=== PATIENT | female | born 1950 | race Caucasian/White ===

== ENCOUNTER 2017-05-28 11:38 | Inpatient (IN) | payer MEDICARE, BC ==
--- NOTE | 2017-05-28 14:33 | P.CRDCN ---
History of Present Illness Consult date: 05/28/17 Requesting physician: Neftaly Stovall Chief complaint: Jaw pain and left shoulder discomfort History of present illness: As a 66-year-old female with history of hypertension, diabetes, hyperlipidemia, coronary artery disease with prior stent placement to the right coronary artery in 2010, she follows with Dr. Oliveros in the office. According to the patient she had pneumonia in March and had been recovering from that quite well. She states that she presented to [facility] with symptoms of jaw discomfort as well as a left shoulder discomfort. She also states that she's been mildly short of breath, and persistent have swelling in both of her lower extremities. For all of the above reason she presented to [facility]. Initial EKG performed at [facility] showed a normal sinus rhythm with a left bundle-branch block pattern. Chest x- ray performed there revealed a right lower lobe infiltrate and small effusion, improved from prior exam. WBC 7.6, hemoglobin 11.7, platelet count 209 INR 1.07 , glucose 446. Sodium 138, potassium 3.4, BUN 17, creatinine 0.8. Magnesium level I.1. Initial troponin 0.03 which is negative. At the time of my examination, patient denies any current discomfort in her jaw or shoulder. Breathing is overall stable. Patient does state that she sleeps in a chair however, because if she lies flat she has a hockey cough and it's difficult to breathe. Blood pressure [facility] 164/75 with a heart rate in the 90s, she is afebrile, 97% on room air. Patient is just coming to the telemetry unit , no vital signs EKG or labs have been performed here yet. Medications and Allergies Allergies Allergy/AdvReac Type Severity Reaction Status Date / Time Penicillins Allergy Severe Rash/Hives Verified 05/28/17 14:15 Physical Exam Vitals: Intake and Output 05/27/17 05/28/17 05/28/17 22:59 06:59 14:59 Other: Weight 105.8 kg Patient Weight 05/29/17 06:59 Weight 105.8 kg PHYSICAL EXAMINATION: HEENT: Head is atraumatic, normocephalic. Pupils equal, round. Neck is supple. There is no elevated jugular venous pressure. HEART EXAMINATION: Heart S1-S2 with systolic ejection murmur is heard CHEST EXAMINATION: Lungs reveal fine rales to bilateral bases. ABDOMEN: Soft, obese, nontender. Bowel sounds are heard. No organomegaly noted. EXTREMITIES:[ 2+ peripheral pulses with 2+ evidence of peripheral edema , right leg has more swelling than the left. Evidence of bilateral lower extremity redness NEUROLOGIC patient is awake, alert and oriented -3. . Results Intake and Output 05/27/17 05/28/17 05/28/17 22:59 06:59 14:59 Other: Weight 105.8 kg Patient Weight 05/29/17 06:59 Weight 105.8 kg EKG Interpretations (text) EKG shows normal sinus rhythm with a left bundle-branch block pattern. Assessment and Plan Plan: Assessment and plan #1 jaw discomfort with associated left shoulder discomfort, somewhat atypical features for acute coronary syndrome. Initial troponin I [facility] was negative. EKG shows a normal sinus rhythm with a left bundle-branch block pattern. #2 symptoms of PND and orthopnea with associated peripheral edema, chest x-ray shows infiltrate which is improving from prior x-ray. We will obtain a BNP level and repeat chest x-ray here. #3 known history of coronary artery disease with prior RCA stenting in 2010 #4 diabetes 5 hypertension #6 hyperlipidemia #7 family history of premature coronary artery disease Plan We will obtain an echocardiogram with Doppler study. We will also request a BNP level be performed. We will give the patient one time dose of IV Lasix. Obtain 2 subsequent troponins. Resume the patient's home medications. Further recommendations will be based on these findings and patient's clinical course. DNP note has been reviewed, I agree with a documented findings and plan of care. Patient was seen and examined.
[2017-05-28] MEDS ORDERED: FUROSEMIDE 10 MG/ML 4 ML VIAL IV STA (14:35)
--- NOTE | 2017-05-28 15:08 | XR ---
EXAMINATION TYPE: XR chest 2V DATE OF EXAM: 05/28/2017 COMPARISON: 02/01/2016 HISTORY: Shortness of breath TECHNIQUE: Frontal and lateral views of the chest are obtained. FINDINGS: Interstitial prominence is most pronounced on the lateral view. This is seen diffusely. Ca rdiac silhouette is enlarged. Trace right pleural effusion is noted. No focal consolidation or pneumo thorax is seen. There is tortuosity of the descending thoracic aorta. IMPRESSION: Diffuse interstitial prominence could relate to mild interstitial pulmonary edema in the setting of congestive heart failure or atypical pneumonitis. Trace right pleural effusion is also pr esent.
[2017-05-28 15:20] LABS: HGB 11.6 gm/dL (11.4-16.0); Hypochromasia Slight; MCHC 32.2 g/dL (31.0-37.0); MCV 86.9 fL (80.0-100.0); Mean Platelet Volume 7.7; Platelet Count 232 k/uL (150-450); RBC 4.14 m/uL (3.80-5.40); RDW 14.9 % (11.5-15.5); WBC 8.3 k/uL (3.8-10.6)
[2017-05-28 16:37] LABS: Glucose,Whole Blood 108 mg/dL (75-99)
[2017-05-28] MEDS ORDERED: ALPRAZolam 0.25 MG TAB PO PRN (17:31)
--- NOTE | 2017-05-28 17:42 | P.CRDCN ---
History of Present Illness Reason for Consult (text): Patient interviewed and examined. She has been experiencing recurrent heaviness and tightness similar to her angina that is responsive to nitroglycerin but she is having increasing episodes and hence she went to the hospital. Patient Dr. Oliveros and the plan is to perform coronary angiography tomorrow Twelve-lead ECG BMP today See full dictation by Dr. rosa Past Medical History Past Medical History: Asthma, Coronary Artery Disease (CAD), Cancer, Chest Pain / Angina, Diabetes Mellitus, GERD/Reflux, Hyperlipidemia, Hypertension, Myocardial Infarction (NH), Pneumonia, Sleep Apnea/CPAP/BIPAP Additional Past Medical History / Comment(s): Pt states she had pneumonia and was sent home with home O2 and she felt she had recovered, she then states she started having bilateral lower leg edema/redness with L leg worse, she states she sleeps in a recliner because she coughs too much if she doesn't. She states she started having jaw, chest and L sided back (scapular) pain on and off the past week. Other hx: IDDM type II, NH in 1998 and 2010, [place] with CPAP but was not able to use since pneumonia so she states equipment company took machine away, R breast cancer with lumpectomy/lymph node removals and had radiation, anemia, unsteady gait. Last Myocardial Infarction Date:: 2010 History of Any Multi-Drug Resistant Organisms: None Reported Past Surgical History: Breast Surgery, Heart Catheterization, Heart Catheterization With Stent, Hysterectomy, Tonsillectomy Additional Past Surgical History / Comment(s): 07/2010 PCI with stent to RCA, R breast lumpectomy/lymph node removals, colonoscopy with benign polypectomies. Past Anesthesia/Blood Transfusion Reactions: No Reported Reaction Additional Past Anesthesia/Blood Transfusion Reaction / Comment(s): Pt states she received blood with hysterectomy without reaction. Date of Last Stent Placement:: 2010 Smoking Status: Former smoker - Past Family History Mother Family Medical History: Cancer, Hyperlipidemia, Hypertension Additional Family Medical History / Comment(s): Mother had breast cancer 50 yrs ago. She is living. Father Family Medical History: Diabetes Mellitus Additional Family Medical History / Comment(s): Father is . Medications and Allergies Home Medications Medication Instructions Recorded Confirmed Type ALPRAZolam [Xanax] 0.25 mg PO Q6HR PRN 05/28/17 05/28/17 History Albuterol Sulfate [Proair Hfa] 2 puff INHALATION RT-Q4H PRN 05/28/17 05/28/17 History Alendronate Sodium [Fosamax] 70 mg PO DANIELS 05/28/17 05/28/17 History Anastrozole [Arimidex] 1 mg PO DAILY 05/28/17 05/28/17 History Aspirin [Adult Low Dose Aspirin EC] 81 mg PO DAILY 05/28/17 05/28/17 History Atorvastatin [Lipitor] 20 mg PO HS 05/28/17 05/28/17 History Atorvastatin [Lipitor] 40 mg PO HS 05/28/17 05/28/17 History Budesonide [Pulmicort] 0.5 mg INHALATION RT-BID 05/28/17 05/28/17 History Clopidogrel [Plavix] 75 mg PO DAILY 05/28/17 05/28/17 History Furosemide [Lasix] 40 mg PO DAILY 05/28/17 05/28/17 History Insulin Aspart [Novolog Flexpen] 6 unit SQ W/LUNCH 05/28/17 05/28/17 History Insulin Aspart [Novolog Flexpen] 8 unit SQ BID 05/28/17 05/28/17 History Insulin Glargine,Hum.rec.anlog 60 unit SQ DAILY 05/28/17 05/28/17 History [Lantus Solostar] Ipratropium-Albuterol Nebulize 3 ml INHALATION RT-TID 05/28/17 05/28/17 History [Duoneb 0.5 mg-3 mg/3 ml Soln] Isosorbide Mononitrate ER [Imdur] 60 mg PO DAILY 05/28/17 05/28/17 History Lisinopril [Zestril] 20 mg PO DAILY 05/28/17 05/28/17 History Metoprolol Tartrate [Lopressor] 50 mg PO DAILY 05/28/17 05/28/17 History Montelukast [Singulair] 10 mg PO HS 05/28/17 05/28/17 History RX: Omeprazole 20 mg PO BID 05/28/17 05/28/17 History RX: Ramipril 10 mg PO BID 05/28/17 05/28/17 History RX: metFORMIN HCL 1,000 mg PO BID 05/28/17 05/28/17 History amLODIPine BESYLATE [Norvasc] 5 mg PO DAILY 05/28/17 05/28/17 History cloNIDine HCL [Catapres] 0.1 mg PO DAILY 05/28/17 05/28/17 History Allergies Allergy/AdvReac Type Severity Reaction Status Date / Time Penicillins Allergy Severe Rash/Hives Verified 05/28/17 14:15 Physical Exam Vitals: Vital Signs Temp Pulse Resp BP Pulse Ox 05/28/17 14:00 98.5 F 92 18 135/68 97 Intake and Output 05/28/17 05/28/17 05/28/17 06:59 14:59 22:59 Other: Weight 105.8 kg Patient Weight 05/29/17 06:59 Weight 105.8 kg Results 05/28/17 15:02 CBC 05/28/17 Range/Units 15:02 WBC 8.3 (3.8-10.6) k/uL RBC 4.14 (3.80-5.40) m/uL Hgb 11.6 (11.4-16.0) gm/dL Hct 36.0 (34.0-46.0) % Plt Count 232 (150-450) k/uL Current Medications Generic Name Dose Route Start Last Admin Trade Name Freq PRN Reason Stop Dose Admin Albuterol/Ipratropium 3 ml 05/28/17 20:00 Duoneb 0.5 Mg-3 Mg/3 Ml Soln INHALATION RT-TID [facility] Alprazolam 0.25 mg 05/28/17 17:31 Xanax PO Q6HR PRN Anxiety Amlodipine Besylate 5 mg 05/29/17 09:00 Norvasc PO DAILY [facility] Anastrozole 1 mg 05/29/17 09:00 Arimidex PO DAILY [facility] Aspirin 81 mg 05/29/17 09:00 Aspirin PO DAILY [facility] Atorvastatin Calcium 40 mg 05/28/17 21:00 Lipitor PO HS [facility] Budesonide 0.5 mg 05/28/17 20:00 Pulmicort INHALATION RT-BID [facility] Clonidine 0.1 mg 05/29/17 09:00 Catapres PO DAILY [facility] Clopidogrel Bisulfate 75 mg 05/29/17 09:00 Plavix PO DAILY [facility] Furosemide 40 mg 05/29/17 09:00 Lasix PO DAILY [facility] Heparin Sodium (Porcine) 5,000 unit 05/28/17 21:00 Heparin SQ Q12HR [facility] Insulin Aspart 6 unit 05/29/17 12:30 Novolog SQ W/LUNCH [facility] Insulin Aspart 8 unit 05/29/17 07:30 Novolog SQ BID-W/MEALS [facility] Insulin Detemir 60 unit 05/29/17 09:00 Levemir SQ DAILY [facility] Isosorbide Mononitrate 60 mg 05/29/17 09:00 Imdur PO DAILY [facility] Lisinopril 20 mg 05/29/17 09:00 Zestril PO DAILY [facility] Metoprolol Tartrate 50 mg 05/29/17 09:00 Lopressor PO DAILY [facility] Montelukast Sodium 10 mg 05/28/17 21:00 Singulair PO HS [facility] Fosamax 70 Mg 70 mg 06/03/17 06:30 PO Daniels@0630 [facility] Pantoprazole Sodium 40 mg 05/29/17 07:30 Protonix PO [id number] [facility] Intake and Output 05/28/17 05/28/17 05/28/17 06:59 14:59 22:59 Other: Weight 105.8 kg Patient Weight 05/29/17 06:59 Weight 105.8 kg 05/28/17 15:02
[2017-05-28] MEDS: BUDESONIDE 0.5 MG/2 ML NEBU INHALATION SCH ×2 (20:19→20:22)
[2017-05-28] MEDS: IPRATROPIUM-ALBUTEROL 3 ML NEB INHALATION SCH ×2 (20:19→20:22)
[2017-05-28 20:59] LABS: Glucose,Whole Blood 190 mg/dL (75-99)
[2017-05-28] MEDS ORDERED: HEPARIN SODIUM,PORCINE 5,000 UNIT/ML 1 ML VIAL SQ SCH (21:00)
[2017-05-28] MEDS ORDERED: HEPARIN SODIUM,PORCINE 5,000 UNIT/ML 1 ML VIAL IV PRN (21:16)
[2017-05-28] MEDS ORDERED: HEPARIN SOD,PORK IN 0.45% NACL 25,000 UNIT in 0.45% NACL 1 500ML.BAG IV SCH (21:30)
--- NOTE | 2017-05-28 21:42 | US ---
EXAMINATION TYPE: US venous doppler duplex LE DATE OF EXAM: 05/28/2017 9:13 PM COMPARISON: NONE CLINICAL HISTORY: Left leg swelling. Bilateral leg edema. SIDE PERFORMED: Bilateral TECHNIQUE: The lower extremity deep venous system is examined utilizing real time linear array sonog nahun with graded compression, doppler sonography and color-flow sonography. VESSELS IMAGED: External Iliac Vein (EIV) Common Femoral Vein Deep Femoral Vein Greater Saphenous Vein * Femoral Vein Popliteal Vein Small Saphenous Vein * Proximal Calf Veins (* superficial vessels) Right Leg: Negative for DVT Left Leg: Negative for DVT No evidence of DVT bilateral legs. IMPRESSION: 1. Bilateral lower extremities negative for deep venous thrombosis by ultrasound.
[2017-05-28 21:55] LABS: Basophils # (A) 0.1 k/uL (0-0.2); Basophils % (A) 1 %; Eosinophils # (A) 0.2 k/uL (0-0.7); Eosinophils % (A) 3 %; HCT 38.6 % (34.0-46.0); HGB 12.2 gm/dL (11.4-16.0); Lymphocytes # (A) 1.4 k/uL (1.0-4.8); Lymphocytes % (A) 18 %; MCH 27.9 pg (25.0-35.0); MCHC 31.6 g/dL (31.0-37.0); MCV 88.2 fL (80.0-100.0); Mean Platelet Volume 7.5; Monocytes # (A) 0.3 k/uL (0-1.0); Monocytes % (A) 4 %; Neutrophils # (A) 5.6 k/uL (1.3-7.7); Neutrophils % (A) 72 %; Platelet Count 237 k/uL (150-450); RBC 4.38 m/uL (3.80-5.40); RDW 14.8 % (11.5-15.5); WBC 7.8 k/uL (3.8-10.6)
[2017-05-28 22:03] LABS: Prothrombin Time 9.9 sec (9.0-12.0)
[2017-05-28 22:10] LABS: Partial Thromboplastin Time 22.1 sec (22.0-30.0)
[2017-05-28] MEDS: ATORVASTATIN 40 MG TAB PO SCH (22:45)
[2017-05-28] MEDS: MONTELUKAST 10 MG TAB PO SCH (22:45)
--- NOTE | 2017-05-28 22:54 | P.HPIM ---
History of Present Illness H&P Date: 05/28/17 Patient is a 66 alert female with a known history of coronary disease and stent placement in 2010, hypertension, diabetes type 2, hyperlipidemia initially presented to [facility] with complaints of chest pressure and left jaw discomfort. Patient also having shortness of breath associated. Patient was also found have leg swelling left more than right. Pt. has been having these worsening symptoms for the past 3 weeks. No fever no chills. Patient recently had pneumonia and required to have thoracentesis. EKG showed normal sinus rhythm at Hospital Chest x-ray showed right lower lobe infiltrate and small effusion improved from previous study Blood sugar is 446 Initial troponin level is 0.03 and 0.038 Patient does have orthopnea at home. Otherwise saturating well on room air,. Cardiology was consulted. Review of Systems Constitutional: Patient denies any fever or chills . No generalized weakness or weight loss. Abdomen: Patient denied nausea vomiting and diarrhea and abdominal pain. Cardiovascular: He does have chest pressure and jaw discomfort. No palpitations. Patient does have leg swelling Respiratory: patient denied any cough is from production. No shortness of breath Neurologic: Patient denied any numbness or tingling headache. Musculoskeletal: Patient denies any complaints of joint swelling or deformity. Skin: Negative Psychiatric: Negative Endocrine: No heat or cold intolerance. No recent weight gain. Genitourinary: No dysuria or hematuria. All other 14 point ROS negative except the above Past Medical History Past Medical History: Asthma, Coronary Artery Disease (CAD), Cancer, Chest Pain / Angina, Diabetes Mellitus, GERD/Reflux, Hyperlipidemia, Hypertension, Myocardial Infarction (MD), Pneumonia, Sleep Apnea/CPAP/BIPAP Additional Past Medical History / Comment(s): Pt states she had pneumonia and was sent home with home O2 and she felt she had recovered, she then states she started having bilateral lower leg edema/redness with L leg worse, she states she sleeps in a recliner because she coughs too much if she doesn't. She states she started having jaw, chest and L sided back (scapular) pain on and off the past week. Other hx: IDDM type II, [place] in 1998 and 2010, [place] with CPAP but was not able to use since pneumonia so she states equipment company took machine away, R breast cancer with lumpectomy/lymph node removals and had radiation, anemia, unsteady gait. Last Myocardial Infarction Date:: 2010 History of Any Multi-Drug Resistant Organisms: None Reported Past Surgical History: Breast Surgery, Heart Catheterization, Heart Catheterization With Stent, Hysterectomy, Tonsillectomy Additional Past Surgical History / Comment(s): 07/2010 PCI with stent to RCA, R breast lumpectomy/lymph node removals, colonoscopy with benign polypectomies. Past Anesthesia/Blood Transfusion Reactions: No Reported Reaction Additional Past Anesthesia/Blood Transfusion Reaction / Comment(s): Pt states she received blood with hysterectomy without reaction. Date of Last Stent Placement:: 2010 Smoking Status: Former smoker - Past Family History Mother Family Medical History: Cancer, Hyperlipidemia, Hypertension Additional Family Medical History / Comment(s): Mother had breast cancer 50 yrs ago. She is living. Father Family Medical History: Diabetes Mellitus Additional Family Medical History / Comment(s): Father is . Medications and Allergies Home Medications Medication Instructions Recorded Confirmed Type ALPRAZolam [Xanax] 0.25 mg PO Q6HR PRN 05/28/17 05/28/17 History Albuterol Sulfate [Proair Hfa] 2 puff INHALATION RT-Q4H PRN 05/28/17 05/28/17 History Alendronate Sodium [Fosamax] 70 mg PO CARPENTER 05/28/17 05/28/17 History Anastrozole [Arimidex] 1 mg PO DAILY 05/28/17 05/28/17 History Aspirin [Adult Low Dose Aspirin EC] 81 mg PO DAILY 05/28/17 05/28/17 History Atorvastatin [Lipitor] 20 mg PO HS 05/28/17 05/28/17 History Atorvastatin [Lipitor] 40 mg PO HS 05/28/17 05/28/17 History Budesonide [Pulmicort] 0.5 mg INHALATION RT-BID 05/28/17 05/28/17 History Clopidogrel [Plavix] 75 mg PO DAILY 05/28/17 05/28/17 History Furosemide [Lasix] 40 mg PO DAILY 05/28/17 05/28/17 History Insulin Aspart [Novolog Flexpen] 6 unit SQ W/LUNCH 05/28/17 05/28/17 History Insulin Aspart [Novolog Flexpen] 8 unit SQ BID 05/28/17 05/28/17 History Insulin Glargine,Hum.rec.anlog 60 unit SQ DAILY 05/28/17 05/28/17 History [Lantus Solostar] Ipratropium-Albuterol Nebulize 3 ml INHALATION RT-TID 05/28/17 05/28/17 History [Duoneb 0.5 mg-3 mg/3 ml Soln] Isosorbide Mononitrate ER [Imdur] 60 mg PO DAILY 05/28/17 05/28/17 History Lisinopril [Zestril] 20 mg PO DAILY 05/28/17 05/28/17 History Metoprolol Tartrate [Lopressor] 50 mg PO DAILY 05/28/17 05/28/17 History Montelukast [Singulair] 10 mg PO HS 05/28/17 05/28/17 History Omeprazole 20 mg PO BID 05/28/17 05/28/17 History Ramipril 10 mg PO BID 05/28/17 05/28/17 History amLODIPine BESYLATE [Norvasc] 5 mg PO DAILY 05/28/17 05/28/17 History cloNIDine HCL [Catapres] 0.1 mg PO DAILY 05/28/17 05/28/17 History metFORMIN HCL 1,000 mg PO BID 05/28/17 05/28/17 History Allergies Allergy/AdvReac Type Severity Reaction Status Date / Time Penicillins Allergy Severe Rash/Hives Verified 05/28/17 14:15 Physical Exam Vitals: Vital Signs Temp Pulse Resp BP Pulse Ox 05/28/17 14:00 98.5 F 92 18 135/68 97 Intake and Output 05/28/17 05/28/17 05/28/17 06:59 14:59 22:59 Other: Weight 105.8 kg Patient Weight 05/29/17 06:59 Weight 105.8 kg PHYSICAL EXAMINATION: Patient is lying in the bed comfortably, no acute distress, awake alert and oriented.. HEENT: Normocephalic. Neck is supple. Pupils reactive. Nostrils clear. Oral cavity is moist. Ears reveal no drainage. Neck reveals no JVD, carotid bruits, or thyromegaly. CHEST EXAMINATION: Trachea is central. Symmetrical expansion. Right basilar crackles and minimal expiratory wheeze. Positive rhonchi CARDIAC: Normal S1, S2 with no gallops. No murmurs ABDOMEN: Soft. Bowel sounds normal. No organomegaly. No abdominal bruits. Extremities: 3+ left lower extremity and 2+ right lower extremity edema. No clubbing or cyanosis Neurologically awake, alert, oriented x3 with well-coordinated movements. No focal deficits noted Skin: No rash or skin lesions. Psychiatric: Coperative. Nonsuicidal Musculoskeletal: No joint swelling or deformity. Normal range of motion. Results CBC & Chem 7: 05/28/17 21:50 Labs: Abnormal Lab Results - Last 24 Hours (Table) 05/28/17 Range/Units 16:34 POC Glucose (mg/dL) 108 H (75-99) mg/dL Thrombosis Risk Factor Assmnt - DVT/VTE Prophylaxis DVT/VTE Prophylaxis: Pharmacologic Prophylaxis ordered - Choose All That Apply Any of the Below Risk Factors Present?: Yes Each Factor Represents 1 point: Obesity (BMI >25), Swollen legs (current) Other Risk Factors: Yes Each Risk Factor Represents 2 Points: Age 61-74 years Other congenital or acquired thrombophilia - If yes, enter type in comment: No Thrombosis Risk Factor Assessment Total Risk Factor Score: 4 Thrombosis Risk Factor Assessment Level: Moderate Risk Assessment and Plan Assessment: Atypical chest pain/pressure radiating to the jaw and left arm. Possible unstable angina. Interstitial edema. Recent pneumonia and pleural effusion requiring thoracentesis History of coronary artery disease with stent placement to RCA into the 11 Diabetes type 2 insulin-dependent Hypertension Hyperlipidemia Morbid obesity with BMI 41.3 Obstructive sleep apnea on BiPAP GERD Plan: Patient will be continued on telemetry monitoring. Serial EKG and troponins. We'll start on heparin drip. Otherwise patient was given Lasix IV which will be be continued. Continue with home medications. Lower extremity duplex is negative for DVT. Insulin dosing and CBG monitoring Cardiology is following this patient and is planning for cardiac catheterization tomorrow. Further recommendations based on the clinical course. Time with Patient: Greater than 30
[2017-05-29 04:58] LABS: Basophils # (A) 0.1 k/uL (0-0.2); Basophils % (A) 1 %; Eosinophils # (A) 0.2 k/uL (0-0.7); Eosinophils % (A) 4 %; HCT 37.7 % (34.0-46.0); HGB 12.2 gm/dL (11.4-16.0); Hypochromasia Slight; Lymphocytes # (A) 1.3 k/uL (1.0-4.8); Lymphocytes % (A) 22 %; MCH 28.3 pg (25.0-35.0); MCHC 32.5 g/dL (31.0-37.0); MCV 87.1 fL (80.0-100.0); Mean Platelet Volume 7.3; Monocytes # (A) 0.3 k/uL (0-1.0); Monocytes % (A) 4 %; Neutrophils % (A) 66 %; Platelet Count 199 k/uL (150-450); RBC 4.32 m/uL (3.80-5.40); RDW 14.6 % (11.5-15.5); WBC 6.1 k/uL (3.8-10.6)
[2017-05-29 05:24] LABS: Anion Gap 11 mmol/L; Blood Urea Nitrogen 18 mg/dL (7-17); Carbon Dioxide 28 mmol/L (22-30); Chloride 103 mmol/L (98-107); Glucose 191 mg/dL (74-99); Potassium 3.3 mmol/L (3.5-5.1); Sodium 142 mmol/L (137-145)
[2017-05-29 06:07] LABS: Glucose,Whole Blood 214 mg/dL (75-99)
[2017-05-29] MEDS: INSULIN ASPART 100 UNIT/ML 1 ML 10 ML VIAL SQ SCH ×3 (06:39→17:51)
[2017-05-29] MEDS: PANTOPRAZOLE 40 MG TABLET PO SCH (06:39)
[2017-05-29] MEDS ORDERED: ATORVASTATIN 80 MG TAB PO STA (08:18)
[2017-05-29] MEDS ORDERED: SODIUM CHLORIDE 0.9% 1,000 ML in EMPTY BAG 1 BAG IV ONE (08:18)
[2017-05-29] MEDS ORDERED: ASPIRIN 325 MG TAB PO STA (08:18)
[2017-05-29] MEDS ORDERED: ALPRAZolam 0.5 MG TAB PO PRN (08:18)
[2017-05-29] MEDS ORDERED: ALPRAZolam 0.25 MG TAB PO PRN (08:18)
[2017-05-29] MEDS: cloNIDine HCL 0.1 MG TAB PO SCH (08:37)
[2017-05-29] MEDS: ISOSORBIDE MONONITRATE ER 60 MG TAB.ER.24H PO SCH (08:37)
[2017-05-29] MEDS: LISINOPRIL 20 MG TAB PO SCH (08:37)
[2017-05-29] MEDS: amLODIPine 5 MG TAB PO SCH (08:37)
[2017-05-29] MEDS: ANASTROZOLE 1 MG TAB PO SCH (08:39)
[2017-05-29] MEDS ORDERED: FUROSEMIDE 10 MG/ML 4 ML VIAL IV SCH (09:00)
[2017-05-29] MEDS ORDERED: CLOPIDOGREL 75 MG TAB PO SCH (09:00)
[2017-05-29] MEDS ORDERED: METOPROLOL TARTRATE 50 MG TAB PO SCH (09:00)
[2017-05-29] MEDS ORDERED: FUROSEMIDE 40 MG TAB PO SCH (09:00)
[2017-05-29] MEDS: BUDESONIDE 0.5 MG/2 ML NEBU INHALATION SCH ×2 (09:23→19:39)
[2017-05-29] MEDS: IPRATROPIUM-ALBUTEROL 3 ML NEB INHALATION SCH ×3 (09:23→19:39)
[2017-05-29] MEDS ORDERED: VERAPAMIL 2.5 MG/ML 2 ML AMP ONE (11:47)
[2017-05-29] MEDS ORDERED: fentaNYL (PF) 50 MCG/ML 2 ML AMP ONE (11:48)
[2017-05-29] MEDS ORDERED: HEPARIN SODIUM 1,000 UN/ML (10ML VL) ONE (11:48)
[2017-05-29] MEDS ORDERED: LIDOCAINE 2% INJ 20 MG/ML (20 ML MDV) ONE (11:48)
[2017-05-29] MEDS ORDERED: fentaNYL (PF) 50 MCG/ML 2 ML AMP IVP ONE (12:17)
[2017-05-29] MEDS ORDERED: LIDOCAINE 2% INJ 20 MG/ML SQ ONE (12:22)
[2017-05-29] MEDS: VERAPAMIL SYRINGE (5 MG/10 ML) INTRAARTER ONE ×2 (12:23→12:42)
[2017-05-29] MEDS ORDERED: IOHEXOL 350 MG/ML 125ML BOTTLE INJ ONE (12:42)
[2017-05-29] MEDS ORDERED: RX INFO: IV CONTRAST WAS GIVEN 1 EACH MISC MISCELLANE PRN (13:02)
[2017-05-29] MEDS ORDERED: HEPARIN SODIUM,PORCINE 5,000 UNIT/ML 1 ML VIAL IV PRN (13:05)
[2017-05-29] MEDS ORDERED: SODIUM CHLORIDE 0.9% 1,000 ML IV SCH (13:15)
[2017-05-29] MEDS ORDERED: MD COMMUNICATION TO PHARMACY 1 EACH MISC PO ONE (13:32)
--- NOTE | 2017-05-29 13:36 | CC ---
CARDIAC CATHETERIZATION REPORT Ms. Kaufman is a 66-year-old female with a known history of heart disease, history of hypertension, hyperlipidemia, diabetes mellitus, who presented with jaw discomfort and chest discomfort and minimal elevation of the troponin consistent with non ST-segment elevation myocardial infarction. In view of that, recommendation made regarding cardiac catheterization. The procedure as well as risks and complications were discussed with the patient who is in full understanding and agreement. PROCEDURE: Patient was brought to labor crew supervisor in a fasting semi-sedated state after receiving fentanyl and Benadryl and achieving moderate conscious sedated state. Using Xylocaine anesthesia and Seldinger technique, a 6-Libyan sheath was introduced in the right radial artery. Selective right and left coronary angiography performed using 5-Libyan 3 and half bend right and left Nat catheter. Multiple views of the coronary artery including hemiaxial views were obtained. Following that a 5-Libyan tight pigtail catheter was introduced into the left ventricle and a 30 degree RICHARDS view of the left ventricle was obtained. Following that, the catheter and sheaths were removed. Hemostasis was obtained with deployment of a TR band. There was no immediate complication. Patient was returned to room in stable condition. FINDINGS: FLUOROSCOPY: There was severe calcification involving all the coronary arteries. 1. Left main: This is a short size vessel bifurcating into left circumflex, left anterior descending artery. Left main coronary artery has no evidence of high- grade stenosis. 2. Left anterior descending artery: This is a large-sized vessel giving rise to 2 diagonal branches in the proximal segment of the LAD. At the takeoff of the first diagonal branch there is an eccentric 90% plaque. The LAD after the takeoff of the second diagonal branch has an area of stenosis of about 99%. The vessel beyond that has no evidence of high-grade stenosis. 3. Left circumflex: This is a small size vessel diffusely diseased with no significant sized obtuse marginal branch. The AV groove in the left circumflex has diffuse intimal disease up to 70-80%. 4. Right coronary artery: This is a large dominant vessel bifurcating distally to PDA and posterolateral segment and branches. The PDA reaches toward the inferior apical wall. The right coronary artery is quite tortuous in the mid segment and calcified. It has diffuse disease. In the proximal segment there is an area of stenosis up to 70-80%. There is another plaque in the mid segment and about 90% plaque prior to the bifurcation. The PDA and the PLV have no evidence of high- grade stenosis. 5. Left ventriculogram: Left ventriculogram was performed in 30 degree RICHARDS view and was suboptimal, but revealed an overall preserved ejection fraction and estimated at about 50%. There was no significant mitral regurgitation. 6. HEMODYNAMICS: There was no gradient across the aortic valve. The left ventricle end-diastolic pressure was 16-20 mmHg. CONCLUSION: 1. Critical stenosis involving the proximal and mid LAD. 2. Critical stenosis involving the right coronary artery in multiple segments. 3. Diffuse disease in the left circumflex. 4. Preserved left ventricular size and systolic function. RECOMMENDATION: In view of the anatomy and the progression of disease compared to 2011, I recommend proceed with evaluation for coronary artery bypass grafting. The patient will be evaluated by Dr. Mari in regard to her lung status and if she is stable from the cardiac standpoint, I believe that a coronary bypass grafting will be her best option. Percutaneous revascularization is a complex procedure in her case. Those findings and recommendation were discussed with the patient and her family who are in full understanding and agreement. Duration of procedure: 22 minutes. MMODL / IJN: [id number] /
--- NOTE | 2017-05-29 14:05 | P.GSCN ---
<Conchis Bernardo - Last Filed: 05/29/17 13:43> History of Present Illness Consult date: 05/29/17 Reason for Consult: Multivessel coronary artery disease, recommendations for surgical revascularization. Requesting physician: Melodie Oliveros History of present illness: This 66-year-old female patient who has a previous medical history of hypertension, hyperlipidemia, and some dependent diabetes mellitus, myocardial infarction with stent placement to the RCA in 2010, obstructive sleep apnea, recent pneumonia, previous tobacco dependence, right breast cancer with lumpectomy and radiation, and family history of premature coronary artery disease presented to the emergency room with complaints of chest pain. She describes the pain as intermittent jaw and back pain associated with shortness of breath, nausea, and lower extremity edema which has been present for the last couple of weeks but which has been getting increasingly more often in frequency. She states the pain was partially with relieved with rest. She initially presented to [facility], EKG completed there demonstrated normal sinus rhythm with a left bundle-branch, initial troponin was negative. Patient was transferred to [facility] with plans for heart catheterization which was completed this morning and which demonstrated RCA stenosis of 90%, circumflex stenosis of 90%, proximal LAD stenosis 80% with mid LAD stenosis of 99%. Due to the nature of her disease, Dr. Castro from cardiothoracic surgery was consulted regarding surgical revascularization recommendations. Review of Systems 14 point review systems was completed and was negative except as noted in the HPI. Past Medical History Past Medical History: Asthma, Coronary Artery Disease (CAD), Cancer, Chest Pain / Angina, COPD, Diabetes Mellitus, GERD/Reflux, Hyperlipidemia, Hypertension, Myocardial Infarction (NC), Pneumonia, Sleep Apnea/CPAP/BIPAP Additional Past Medical History / Comment(s): Pt states she had pneumonia and was sent home with home O2 and she felt she had recovered, she then states she started having bilateral lower leg edema/redness with L leg worse, she states she sleeps in a recliner because she coughs too much if she doesn't. She states she started having jaw, chest and L sided back (scapular) pain on and off the past week. Other hx: IDDM type II, NC in 1998 and 2010, MADELEINE with CPAP but was not able to use since pneumonia so she states equipment company took machine away, R breast cancer with lumpectomy/lymph node removals and had radiation, anemia, unsteady gait. Last Myocardial Infarction Date:: 2010 History of Any Multi-Drug Resistant Organisms: None Reported Past Surgical History: Breast Surgery, Heart Catheterization, Heart Catheterization With Stent, Hysterectomy, Tonsillectomy Additional Past Surgical History / Comment(s): 07/2010 PCI with stent to RCA, R breast lumpectomy/lymph node removals, colonoscopy with benign polypectomies. Past Anesthesia/Blood Transfusion Reactions: No Reported Reaction Additional Past Anesthesia/Blood Transfusion Reaction / Comm: Pt states she received blood with hysterectomy without reaction. Date of Last Stent Placement:: 2010 Smoking Status: Former smoker Past Alcohol Use History: None Reported Past Drug Use History: None Reported - Past Family History Mother Family Medical History: Cancer, Hyperlipidemia, Hypertension Additional Family Medical History / Comment(s): Mother had breast cancer 50 yrs ago. She is living. Father Family Medical History: Diabetes Mellitus Additional Family Medical History / Comment(s): Father is . Medications and Allergies Home Medications Medication Instructions Recorded Confirmed Type ALPRAZolam [Xanax] 0.25 mg PO Q6HR PRN 05/28/17 05/28/17 History Albuterol Sulfate [Proair Hfa] 2 puff INHALATION RT-Q4H PRN 05/28/17 05/28/17 History Alendronate Sodium [Fosamax] 70 mg PO CARPENTER 05/28/17 05/28/17 History Anastrozole [Arimidex] 1 mg PO DAILY 05/28/17 05/28/17 History Aspirin [Adult Low Dose Aspirin EC] 81 mg PO DAILY 05/28/17 05/28/17 History Atorvastatin [Lipitor] 20 mg PO HS 05/28/17 05/28/17 History Atorvastatin [Lipitor] 40 mg PO HS 05/28/17 05/28/17 History Budesonide [Pulmicort] 0.5 mg INHALATION RT-BID 05/28/17 05/28/17 History Clopidogrel [Plavix] 75 mg PO DAILY 05/28/17 05/28/17 History Furosemide [Lasix] 40 mg PO DAILY 05/28/17 05/28/17 History Insulin Aspart [Novolog Flexpen] 6 unit SQ W/LUNCH 05/28/17 05/28/17 History Insulin Aspart [Novolog Flexpen] 8 unit SQ BID 05/28/17 05/28/17 History Insulin Glargine,Hum.rec.anlog 60 unit SQ DAILY 05/28/17 05/28/17 History [Lantus Solostar] Ipratropium-Albuterol Nebulize 3 ml INHALATION RT-TID 05/28/17 05/28/17 History [Duoneb 0.5 mg-3 mg/3 ml Soln] Isosorbide Mononitrate ER [Imdur] 60 mg PO DAILY 05/28/17 05/28/17 History Lisinopril [Zestril] 20 mg PO DAILY 05/28/17 05/28/17 History Metoprolol Tartrate [Lopressor] 50 mg PO DAILY 05/28/17 05/28/17 History Montelukast [Singulair] 10 mg PO HS 05/28/17 05/28/17 History Omeprazole 20 mg PO BID 05/28/17 05/28/17 History Ramipril 10 mg PO BID 05/28/17 05/28/17 History amLODIPine BESYLATE [Norvasc] 5 mg PO DAILY 05/28/17 05/28/17 History cloNIDine HCL [Catapres] 0.1 mg PO DAILY 05/28/17 05/28/17 History metFORMIN HCL 1,000 mg PO BID 05/28/17 05/28/17 History Allergies Allergy/AdvReac Type Severity Reaction Status Date / Time Penicillins Allergy Severe Rash/Hives Verified 05/28/17 14:15 Surgical - Exam Vital Signs Temp Pulse Resp BP Pulse Ox 98.5 F 92 18 135/68 97 05/28/17 14:00 05/28/17 14:00 05/28/17 14:00 05/28/17 14:00 05/28/17 14:00 - General well developed, well nourished, no distress, no pain, chronically ill, obese - Eyes PERRL, normal ocular movement - ENT no hearing loss - Neck no masses, no bruits, trachea midline - Respiratory Lungs sounds diminished bilaterally. Respirations even, nonlabored. Currently on room air with oxygen saturation 94%. - Cardiovascular S1, S2 present. Regular rate and rhythm, sinus rhythm on telemetry. Palpable peripheral pulses bilaterally. Bilateral lower extremity edema present. No calf pain or tenderness noted. Bilateral lower extremities with evidence of vascular disease. - Abdomen Abdomen: soft, non tender, bowel sounds - Genitourinary Deferred - Rectum Deferred - Integumentary Skin is warm and dry. Bilateral lower extremities reddened, dry scaly skin, lack of hair noted. - Neurologic normal sensation - Psychiatric oriented to time, oriented to person, oriented to place Results - Labs 05/29/17 04:40 05/29/17 04:40 Abnormal Lab Results - Last 24 Hours (Table) 05/28/17 05/28/17 05/28/17 Range/Units 15:00 16:34 20:51 Potassium (3.5-5.1) mmol/L BUN (7-17) mg/dL Glucose (74-99) mg/dL POC Glucose (mg/dL) 108 H 190 H (75-99) mg/dL Troponin I 0.038 H* (0.000-0.034) ng/mL 05/28/17 05/29/17 05/29/17 Range/Units 23:20 04:40 06:04 Potassium 3.3 L (3.5-5.1) mmol/L BUN 18 H (7-17) mg/dL Glucose 191 H (74-99) mg/dL POC Glucose (mg/dL) 214 H (75-99) mg/dL Troponin I 0.035 H* (0.000-0.034) ng/mL Diabetes panel 05/29/17 Range/Units 04:40 Sodium 142 (137-145) mmol/L Potassium 3.3 L (3.5-5.1) mmol/L Chloride 103 (98-107) mmol/L Carbon Dioxide 28 (22-30) mmol/L BUN 18 H (7-17) mg/dL Creatinine 0.70 (0.52-1.04) mg/dL Glucose 191 H (74-99) mg/dL Calcium 10.0 (8.4-10.2) mg/dL Calcium panel 05/29/17 Range/Units 04:40 Calcium 10.0 (8.4-10.2) mg/dL Pituitary panel 05/29/17 Range/Units 04:40 Sodium 142 (137-145) mmol/L Potassium 3.3 L (3.5-5.1) mmol/L Chloride 103 (98-107) mmol/L Carbon Dioxide 28 (22-30) mmol/L BUN 18 H (7-17) mg/dL Creatinine 0.70 (0.52-1.04) mg/dL Glucose 191 H (74-99) mg/dL Calcium 10.0 (8.4-10.2) mg/dL Adrenal panel 05/29/17 Range/Units 04:40 Sodium 142 (137-145) mmol/L Potassium 3.3 L (3.5-5.1) mmol/L Chloride 103 (98-107) mmol/L Carbon Dioxide 28 (22-30) mmol/L BUN 18 H (7-17) mg/dL Creatinine 0.70 (0.52-1.04) mg/dL Glucose 191 H (74-99) mg/dL Calcium 10.0 (8.4-10.2) mg/dL - Imaging Chest x-ray: report reviewed, image reviewed Additional studies: Cardiac catheterization films reviewed. Assessment and Plan (1) Hypertension Current Visit: Yes Status: Chronic Code(s): I10 - ESSENTIAL (PRIMARY) HYPERTENSION SNOMED Code(s): 00814087 (2) Hyperlipidemia Current Visit: Yes Status: Chronic Code(s): E78.5 - HYPERLIPIDEMIA, UNSPECIFIED SNOMED Code(s): 58078865 (3) Diabetes mellitus Current Visit: Yes Status: Chronic Code(s): E11.9 - TYPE 2 DIABETES MELLITUS WITHOUT COMPLICATIONS SNOMED Code(s): 23865613 (4) Previous myocardial infarction older than 8 weeks Current Visit: No Status: Resolved Code(s): I25.2 - OLD MYOCARDIAL INFARCTION SNOMED Code(s): 0808658 (5) History of heart artery stent Current Visit: Yes Status: Chronic Code(s): Z95.5 - PRESENCE OF CORONARY ANGIOPLASTY IMPLANT AND GRAFT SNOMED Code(s): 332069706 (6) Tobacco dependence in remission Current Visit: No Status: Resolved Code(s): F17.201 - NICOTINE DEPENDENCE, UNSPECIFIED, IN REMISSION SNOMED Code(s): 067383055 (7) Family history of premature coronary artery disease Current Visit: Yes Status: Chronic Code(s): Z82.49 - FAMILY HX OF ISCHEM HEART DIS AND OTH DIS OF THE CIRC SYS SNOMED Code(s): 965650134 (8) History of right breast cancer Current Visit: No Status: Resolved Code(s): Z85.3 - PERSONAL HISTORY OF MALIGNANT NEOPLASM OF BREAST SNOMED Code(s): 788701258 (9) Non-STEMI (non-ST elevated myocardial infarction) Current Visit: Yes Status: Acute Code(s): I21.4 - NON-ST ELEVATION (NSTEMI) MYOCARDIAL INFARCTION SNOMED Code(s): 600506257 Plan: The patient was seen and examined at the bedside. History was difficult to elicit as patient is a bit forgetful. Chart/diagnostics were reviewed. Cardiac cath films were reviewed. Case will be discussed with Dr. Castro. Preoperative testing was ordered. Preoperative teaching initiated. Patient did receive Plavix this morning prior to cardiac lab clerk, Plavix will need to be held preferably for 5 days prior to surgery. Continue aspirin, statin, beta doretha, maximize medical therapy leading up to surgery. More recommendations to follow pending results of preoperative testing. Thank you Dr. Oliveros for this consult. We look forward to working with you in the care of your patient. Time with Patient: Greater than 30 <Silver Castro - Last Filed: 05/29/17 16:37> Surgical - Exam Vital Signs Temp Pulse Resp BP Pulse Ox 98.5 F 92 18 135/68 97 05/28/17 14:00 05/28/17 14:00 05/28/17 14:00 05/28/17 14:00 05/28/17 14:00 Results - Labs 05/29/17 15:07 05/29/17 15:07 Abnormal Lab Results - Last 24 Hours (Table) 05/28/17 05/28/17 05/28/17 Range/Units 15:00 16:34 20:51 Potassium (3.5-5.1) mmol/L BUN (7-17) mg/dL Glucose (74-99) mg/dL POC Glucose (mg/dL) 108 H 190 H (75-99) mg/dL Troponin I 0.038 H* (0.000-0.034) ng/mL Triglycerides (<150) mg/dL HDL Cholesterol (40-60) mg/dL Ur Specific Rodman (1.001-1.035) Urine Protein (Negative) 05/28/17 05/29/17 05/29/17 Range/Units 23:20 04:40 06:04 Potassium 3.3 L (3.5-5.1) mmol/L BUN 18 H (7-17) mg/dL Glucose 191 H (74-99) mg/dL POC Glucose (mg/dL) 214 H (75-99) mg/dL Troponin I 0.035 H* (0.000-0.034) ng/mL Triglycerides (<150) mg/dL HDL Cholesterol (40-60) mg/dL Ur Specific Rodman (1.001-1.035) Urine Protein (Negative) 05/29/17 05/29/17 05/29/17 Range/Units 15:07 15:14 15:28 Potassium 3.3 L (3.5-5.1) mmol/L BUN (7-17) mg/dL Glucose 161 H (74-99) mg/dL POC Glucose (mg/dL) 167 H (75-99) mg/dL Troponin I (0.000-0.034) ng/mL Triglycerides 216 H (<150) mg/dL HDL Cholesterol 36 L (40-60) mg/dL Ur Specific Rodman >1.050 H (1.001-1.035) Urine Protein Trace H (Negative) Diabetes panel 05/29/17 05/29/17 Range/Units 04:40 15:07 Sodium 142 140 (137-145) mmol/L Potassium 3.3 L 3.3 L (3.5-5.1) mmol/L Chloride 103 102 (98-107) mmol/L Carbon Dioxide 28 27 (22-30) mmol/L BUN 18 H 16 (7-17) mg/dL Creatinine 0.70 0.72 (0.52-1.04) mg/dL Glucose 191 H 161 H (74-99) mg/dL Calcium 10.0 9.8 (8.4-10.2) mg/dL AST 26 (14-36) U/L ALT 35 (9-52) U/L Alkaline Phosphatase 95 (38-126) U/L Total Protein 6.5 (6.3-8.2) g/dL Albumin 3.8 (3.5-5.0) g/dL Triglycerides 216 H (<150) mg/dL HDL Cholesterol 36 L (40-60) mg/dL Thyroid panel 05/29/17 Range/Units 15:07 TSH 1.540 (0.465-4.680) mIU/L Calcium panel 05/29/17 05/29/17 Range/Units 04:40 15:07 Calcium 10.0 9.8 (8.4-10.2) mg/dL Albumin 3.8 (3.5-5.0) g/dL Pituitary panel 05/29/17 05/29/17 Range/Units 04:40 15:07 Sodium 142 140 (137-145) mmol/L Potassium 3.3 L 3.3 L (3.5-5.1) mmol/L Chloride 103 102 (98-107) mmol/L Carbon Dioxide 28 27 (22-30) mmol/L BUN 18 H 16 (7-17) mg/dL Creatinine 0.70 0.72 (0.52-1.04) mg/dL Glucose 191 H 161 H (74-99) mg/dL Calcium 10.0 9.8 (8.4-10.2) mg/dL TSH 1.540 (0.465-4.680) mIU/L Adrenal panel 05/29/17 05/29/17 Range/Units 04:40 15:07 Sodium 142 140 (137-145) mmol/L Potassium 3.3 L 3.3 L (3.5-5.1) mmol/L Chloride 103 102 (98-107) mmol/L Carbon Dioxide 28 27 (22-30) mmol/L BUN 18 H 16 (7-17) mg/dL Creatinine 0.70 0.72 (0.52-1.04) mg/dL Glucose 191 H 161 H (74-99) mg/dL Calcium 10.0 9.8 (8.4-10.2) mg/dL Total Bilirubin 1.0 (0.2-1.3) mg/dL AST 26 (14-36) U/L ALT 35 (9-52) U/L Alkaline Phosphatase 95 (38-126) U/L Total Protein 6.5 (6.3-8.2) g/dL Albumin 3.8 (3.5-5.0) g/dL Assessment and Plan Plan: The patient was seen and examined. I agree with the above assessment and plan. The patient is a 66 year old female who reports neck and upper back pain for the past several weeks. She was diagnosed with a NSTEMI. A cardiac catheterization was performed today which reveals multivessel coronary artery disease. Coronary artery bypass is recommended. The risks, benefits, and alternatives to this procedure were discussed with the patient. All of her questions were answered. She has been on chronic Plavix and did receive a dose this morning. We will continue with our standard preoperative workup. I would like to obtain a computed tomography scan of the chest given her history of chest radiation. We will plan on performing her surgery during the early part of next week. She is currently hemodynamically stable and chest pain-free.
[2017-05-29] MEDS ORDERED: HEPARIN SOD,PORK IN 0.45% NACL 25,000 UNIT in 0.45% NACL 1 500ML.BAG IV SCH (15:15)
[2017-05-29 15:27] LABS: Basophils % (A) 1 %; Eosinophils # (A) 0.2 k/uL (0-0.7); Eosinophils % (A) 4 %; HCT 37.1 % (34.0-46.0); HGB 12.1 gm/dL (11.4-16.0); Hypochromasia Slight; Lymphocytes # (A) 1.3 k/uL (1.0-4.8); Lymphocytes % (A) 24 %; MCH 28.2 pg (25.0-35.0); MCHC 32.5 g/dL (31.0-37.0); MCV 86.9 fL (80.0-100.0); Mean Platelet Volume 7.3; Monocytes # (A) 0.3 k/uL (0-1.0); Monocytes % (A) 5 %; Neutrophils # (A) 3.3 k/uL (1.3-7.7); Neutrophils % (A) 63 %; Platelet Count 205 k/uL (150-450); RBC 4.27 m/uL (3.80-5.40); RDW 14.7 % (11.5-15.5); WBC 5.3 k/uL (3.8-10.6)
[2017-05-29] MEDS: INSULIN DETEMIR 100 UNIT/ML 10 ML VIAL SQ SCH (15:30)
[2017-05-29 15:34] LABS: Partial Thromboplastin Time 25.1 sec (22.0-30.0); Prothrombin Time 10.2 sec (9.0-12.0)
[2017-05-29 15:35] LABS: Appearance,Urine Clear (Clear); Bilirubin,Urine Negative (Negative); Blood,Urine Negative (Negative); Color,Urine Light Yellow; Glucose,Urine (UA) Negative (Negative); Ketones,Urine Negative (Negative); Leukocyte Esterase,Urine Negative (Negative); Nitrite,Urine Negative (Negative); Protein,Urine Trace (Negative); Urobilinogen,Urine <2.0 mg/dL (<2.0)
[2017-05-29 15:43] LABS: Glucose,Whole Blood 167 mg/dL (75-99)
[2017-05-29 15:50] LABS: Specific Gravity,Urine >1.050 (1.001-1.035)
[2017-05-29 15:51] LABS: ALT 35 U/L (9-52); AST 26 U/L (14-36); Albumin 3.8 g/dL (3.5-5.0); Alkaline Phosphatase 95 U/L (38-126); Anion Gap 11 mmol/L; Blood Urea Nitrogen 16 mg/dL (7-17); Calcium 9.8 mg/dL (8.4-10.2); Carbon Dioxide 27 mmol/L (22-30); Chloride 102 mmol/L (98-107); Cholesterol 132 mg/dL (<200); Glucose 161 mg/dL (74-99); HDL Cholesterol 36 mg/dL (40-60); LDL Cholesterol,Calculated 53 mg/dL (0-99); Magnesium 1.7 mg/dL (1.6-2.3); Potassium 3.3 mmol/L (3.5-5.1); Sodium 140 mmol/L (137-145); Total Protein 6.5 g/dL (6.3-8.2); Triglycerides 216 mg/dL (<150)
--- NOTE | 2017-05-29 16:11 | US ---
EXAMINATION TYPE: US carotid duplex BILAT DATE OF EXAM: 05/29/2017 COMPARISON: NONE CLINICAL HISTORY: pre-op cardiac surgery. Pre op cardiac surgery EXAM MEASUREMENTS: RIGHT: Peak Systolic Velocity (PSV) cm/sec ----- Right CCA: 51.6 ----- Right ICA: 86.7 ----- Right ECA: 116.1 ICA/CCA ratio: 1.7 RIGHT: End Diastole cm/sec ----- Right CCA: 10.9 ----- Right ICA: 16.4 ----- Right ECA: 9.5 LEFT: Peak Systolic Velocity (PSV) cm/sec ----- Left CCA: 59.2 ----- Left ICA: 127.4 ----- Left ECA: 137.1 ICA/CCA ratio: 2.2 LEFT: End Diastole cm/sec ----- Left CCA: 12.1 ----- Left ICA: 24.1 ----- Left ECA: 14.4 VERTEBRALS (direction of flow): Right Vertebral: Antegrade Left Vertebral: Antegrade Rhythm: Normal Mild to moderate plaque bilateral bifurcations. Slightly increased velocities left ECA. Tortuous left ICA IMPRESSION: Borderline hemodynamic significant stenosis of the proximal internal carotid artery on t he left by Doppler criteria, an indirect measurement of carotid stenosis. Findings likely approximate only 50% diameter reduction or less of the proximal internal carotid artery on the left and carotid CTA may be of benefit.
[2017-05-29] MEDS ORDERED: POTASSIUM CHLORIDE ER 20 MEQ TAB.ER PO STA (16:36)
[2017-05-29 17:17] LABS: Glucose,Whole Blood 222 mg/dL (75-99)
--- NOTE | 2017-05-29 18:11 | P.CNPUL ---
<Tasia Prather M - Last Filed: 05/29/17 17:35> History of Present Illness Consult date: 05/29/17 Requesting physician: Melodie Oliveros Reason for consult: dyspnea, chest pain Chief complaint: Jaw pain, right shoulder pain, pain between the shoulder blades , dyspnea History of present illness: Mrs. Kaufman is a 66-year-old white female patient of Dr. Howell, who presented to the [facility] on 05/28/2017 with complaints of jaw discomfort, chest pressure, and stabbing pain between the shoulder blades associated with dyspnea. Patient took 2 sublingual nitro, with slight relief, however her symptoms persisted and she presented to the hospital for further evaluation and treatment. Patient has a past medical history of coronary artery disease and stent placement in 2010, hypertension, diabetes type 2, hyperlipidemia, COPD with baseline FEV1 of 82% of predicted with chronic hypoxemic respiratory failure, severe obstructive sleep apnea. Patient wears home O2 at bedtime at 3 L per nasal cannula. She is supposed to wear BiPAP at a pressure of 21/17 cm of water, her baseline AHI is 80. Patient states in the early part of March 2017 she was hospitalized at [facility] for right lung pneumonia, during that stay she did not have her home BiPAP at the hospital, therefore her device was taken back for non-use. Prior to that patient was very compliant and clinically benefiting from the treatment. Patient has had bilateral lower extremity edema and redness since she was discharged from the hospital in March. She has been sleeping in the recliner, unable to lay flat to sleep. Past medical history is also positive for right breast cancer with lumpectomy/lymph node removal, and radiation therapy. Initial 2 troponins were elevated at 0.038, and 0.035. Patient's lab work was negative for any evidence of leukocytosis, WBC was 5.3, hemoglobin was 12.1. Potassium is 3.3, renal profile was within normal limits. Chest x-ray showed diffuse interstitial prominence, and trace right pleural effusion. Patient underwent cardiac catheterization today on 05/28/2017 which showed critical stenosis in the proximal and mid LAD, RCA in multiple segments, diffuse disease in the left circumflex. Preserved left ventricular size and systolic function estimated at about 50% were noted. EKG showed sinus rhythm with a left bundle branch block. Patient was recommended for evaluation for coronary artery bypass grafting, and this consult was requested in regard for preop pulmonary clearance. Review of Systems All systems: negative Constitutional: Denies chills, Denies fever Eyes: denies blurred vision, denies pain Ears, nose, mouth and throat: Denies headache, Denies sore throat Cardiovascular: Reports edema, Reports leg edema, Reports orthopnea, Denies chest pain, Denies shortness of breath Respiratory: Reports home oxygen, Reports sleep apnea, Denies cough Gastrointestinal: Denies abdominal pain, Denies diarrhea, Denies nausea, Denies vomiting Genitourinary: Denies dysuria, Denies hematuria Musculoskeletal: Denies myalgias Integumentary: Denies pruritus, Denies rash Neurological: Denies numbness, Denies weakness Psychiatric: Denies anxiety, Denies depression Endocrine: Denies fatigue, Denies weight change Past Medical History Past Medical History: Asthma, Coronary Artery Disease (CAD), Cancer, Chest Pain / Angina, COPD, Diabetes Mellitus, GERD/Reflux, Hyperlipidemia, Hypertension, Myocardial Infarction (DC), Pneumonia, Sleep Apnea/CPAP/BIPAP Additional Past Medical History / Comment(s): Pt states she had pneumonia and was sent home with home O2 and she felt she had recovered, she then states she started having bilateral lower leg edema/redness with L leg worse, she states she sleeps in a recliner because she coughs too much if she doesn't. She states she started having jaw, chest and L sided back (scapular) pain on and off the past week. Other hx: IDDM type II, DC in 1998 and 2010, [place] with CPAP but was not able to use since pneumonia so she states equipment company took machine away, R breast cancer with lumpectomy/lymph node removals and had radiation, anemia, unsteady gait. Last Myocardial Infarction Date:: 2010 History of Any Multi-Drug Resistant Organisms: None Reported Past Surgical History: Breast Surgery, Heart Catheterization, Heart Catheterization With Stent, Hysterectomy, Tonsillectomy Additional Past Surgical History / Comment(s): 07/2010 PCI with stent to RCA, R breast lumpectomy/lymph node removals, colonoscopy with benign polypectomies. Past Anesthesia/Blood Transfusion Reactions: No Reported Reaction Additional Past Anesthesia/Blood Transfusion Reaction / Comment(s): Pt states she received blood with hysterectomy without reaction. Date of Last Stent Placement:: 2010 Smoking Status: Former smoker Past Alcohol Use History: None Reported Past Drug Use History: None Reported - Past Family History Mother Family Medical History: Cancer, Hyperlipidemia, Hypertension Additional Family Medical History / Comment(s): Mother had breast cancer 50 yrs ago. She is living. Father Family Medical History: Diabetes Mellitus Additional Family Medical History / Comment(s): Father is . Medications and Allergies Home Medications Medication Instructions Recorded Confirmed Type ALPRAZolam [Xanax] 0.25 mg PO Q6HR PRN 05/28/17 05/28/17 History Albuterol Sulfate [Proair Hfa] 2 puff INHALATION RT-Q4H PRN 05/28/17 05/28/17 History Alendronate Sodium [Fosamax] 70 mg PO CARPENTER 05/28/17 05/28/17 History Anastrozole [Arimidex] 1 mg PO DAILY 05/28/17 05/28/17 History Aspirin [Adult Low Dose Aspirin EC] 81 mg PO DAILY 05/28/17 05/28/17 History Atorvastatin [Lipitor] 20 mg PO HS 05/28/17 05/28/17 History Atorvastatin [Lipitor] 40 mg PO HS 05/28/17 05/28/17 History Budesonide [Pulmicort] 0.5 mg INHALATION RT-BID 05/28/17 05/28/17 History Clopidogrel [Plavix] 75 mg PO DAILY 05/28/17 05/28/17 History Furosemide [Lasix] 40 mg PO DAILY 05/28/17 05/28/17 History Insulin Aspart [Novolog Flexpen] 6 unit SQ W/LUNCH 05/28/17 05/28/17 History Insulin Aspart [Novolog Flexpen] 8 unit SQ BID 05/28/17 05/28/17 History Insulin Glargine,Hum.rec.anlog 60 unit SQ DAILY 05/28/17 05/28/17 History [Lantus Solostar] Ipratropium-Albuterol Nebulize 3 ml INHALATION RT-TID 05/28/17 05/28/17 History [Duoneb 0.5 mg-3 mg/3 ml Soln] Isosorbide Mononitrate ER [Imdur] 60 mg PO DAILY 05/28/17 05/28/17 History Lisinopril [Zestril] 20 mg PO DAILY 05/28/17 05/28/17 History Metoprolol Tartrate [Lopressor] 50 mg PO DAILY 05/28/17 05/28/17 History Montelukast [Singulair] 10 mg PO HS 05/28/17 05/28/17 History Omeprazole 20 mg PO BID 05/28/17 05/28/17 History Ramipril 10 mg PO BID 05/28/17 05/28/17 History amLODIPine BESYLATE [Norvasc] 5 mg PO DAILY 05/28/17 05/28/17 History cloNIDine HCL [Catapres] 0.1 mg PO DAILY 05/28/17 05/28/17 History metFORMIN HCL 1,000 mg PO BID 05/28/17 05/28/17 History Allergies Allergy/AdvReac Type Severity Reaction Status Date / Time Penicillins Allergy Severe Rash/Hives Verified 05/28/17 14:15 Physical Exam Vitals: Vital Signs Temp Pulse Pulse Pulse Resp BP Pulse Ox 05/29/17 16:00 102 H 18 136/65 94 L 05/29/17 14:28 89 17 116/69 97 05/29/17 14:17 88 18 144/70 98 05/29/17 13:47 82 17 135/70 98 05/29/17 13:32 91 18 129/88 97 05/29/17 13:17 89 17 117/68 98 05/29/17 13:02 86 18 116/70 94 L 05/29/17 12:00 82 18 119/59 100 05/29/17 11:30 86 05/29/17 11:20 88 05/29/17 09:33 84 05/29/17 09:23 84 05/29/17 08:19 96 18 142/65 95 05/29/17 08:00 97.6 F 96 18 142/65 95 05/29/17 06:19 97.7 F 101 H 16 168/99 94 L 05/29/17 04:00 103 H 16 05/29/17 00:00 97.7 F 103 H 16 167/83 97 05/28/17 20:00 97.8 F 103 H 16 162/75 93 L Intake and Output 05/29/17 05/29/17 05/29/17 06:59 14:59 22:59 Intake Total 598.491 Output Total 300 Balance 298.491 Intake: IV 350 Intake, IV Titration 248.491 Amount Heparin Sod,Pork in 0.45% 248.491 NaCl 25,000 unit In 0.45 % NaCl 1 500ml.bag @ 9.4 UNITS/KG/HR 19.89 mls/hr IV .Q24H OLVIN Rx#: [id number] Oral 0 Output: Urine 300 Other: # Voids 1 Weight 105.4 kg GENERAL EXAM: Alert, pleasant, 66-year-old female, comfortable in no apparent distress. HEAD: Normocephalic/atraumatic. EYES: Normal reaction of pupils, equal size. Conjunctiva pink, sclera white. NOSE: Clear with pink turbinates. THROAT: No erythema or exudates. NECK: No masses, no JVD, no thyroid enlargement, no adenopathy. CHEST: No chest wall deformity. Symmetrical expansion. LUNGS: Equal air entry with no crackles, wheeze, rhonchi or dullness. CVS: Regular rate and rhythm, normal S1 and S2, no gallops, no murmurs, no rubs ABDOMEN: Soft, nontender. No hepatosplenomegaly, normal bowel sounds, no guarding or rigidity. EXTREMITIES: No clubbing, mild bilateral extremity edema noted, no cyanosis, 2+ pulses and upper and lower extremities. Right wrist TRband and is in place, no signs of hematoma MUSCULOSKELETAL: Muscle strength and tone normal. SPINE: No scoliosis or deformity SKIN: No rashes CENTRAL NERVOUS SYSTEM: Alert and oriented -3. No focal deficits, tone is normal in all 4 extremities. PSYCHIATRIC: Alert and oriented -3. Appropriate affect. Intact judgment and insight. Results - Laboratory Findings CBC and BMP: 05/29/17 15:07 05/29/17 15:07 PT/INR, D-dimer PT 10.2 sec (9.0-12.0) 05/29/17 15:07 INR 1.0 (<1.2) 05/29/17 15:07 Abnormal lab findings: Abnormal Labs 05/28/17 05/28/17 05/28/17 15:00 16:34 20:51 Potassium BUN Glucose POC Glucose (mg/dL) 108 H 190 H Troponin I 0.038 H* Triglycerides HDL Cholesterol Ur Specific [place] Urine Protein 05/28/17 05/29/17 05/29/17 23:20 04:40 06:04 Potassium 3.3 L BUN 18 H Glucose 191 H POC Glucose (mg/dL) 214 H Troponin I 0.035 H* Triglycerides HDL Cholesterol Ur Specific [place] Urine Protein 05/29/17 05/29/17 05/29/17 15:07 15:14 15:28 Potassium 3.3 L BUN Glucose 161 H POC Glucose (mg/dL) 167 H Troponin I Triglycerides 216 H HDL Cholesterol 36 L Ur Specific [place] >1.050 H Urine Protein Trace H 05/29/17 17:04 Potassium BUN Glucose POC Glucose (mg/dL) 222 H Troponin I Triglycerides HDL Cholesterol Ur Specific [place] Urine Protein - Diagnostic Findings Chest x-ray: report reviewed Assessment and Plan Plan: Assessment: #1. Symptomatic multivessel coronary artery disease involving the proximal and mid LAD, RCA and diffuse disease in the circumflex coronary artery #2. Chronic hypoxic respiratory failure secondary to COPD, with a baseline FEV1 of 82% of predicted #3. Obstructive sleep apnea, with baseline AHI of 80, patient was prescribed BiPAP therapy at pressures 21/17 cm of water. Currently does not have a BiPAP unit at home, patient was taken back by the [facility] when the patient is hospitalized for right lung pneumonia in March 2017. Otherwise the patient is compliant with the therapy #4. Obesity, hypoventilation syndrome #5. Coronary artery disease, with previous stenting #6. Recent hospitalization for right lung pneumonia at [facility] in March 2017. Patient had a thoracentesis for pleural effusion during that admission #7. Hyperlipidemia, hypertension #8. History of right breast cancer with lumpectomy/lymph node removal and radiation #9. GERD/reflux Plan: Patient's baseline FEV1 is 82% of predicted, consistent with mild COPD. Patient will require BiPAP support on the regular basis in the postop period after extubation. Although patient carries an increased risk due to her history of COPD, obstructive sleep apnea, obesity and hypoventilation syndrome, there is no absolute contraindication to proceeding with cardiopulmonary bypass grafting. Continue Pulmicort, continue DuoNeb nebulized treatments, continue incentive spirometry. Patient denies any cough, chest congestion or sputum production. No evidence of leukocytosis after her last episode of right lung pneumonia. Continue with O2 at 3 L per nasal cannula at bedtime as previously worn at home. Patient denies any acute respiratory issues at this time. I performed a history & physical examination of the patient and discussed their management with my nurse practitioner, Tasia Prather. I reviewed the nurse practitioner's note and agree with the documented findings and plan of care. Lung sounds are clear. The findings and the impression was discussed with the patient. I attest to the documentation by the nurse practitioner. Time with Patient: Greater than 30 <Ana Mari - Last Filed: 05/30/17 16:13> Physical Exam Vitals: Vital Signs Temp Pulse Pulse Resp BP BP Pulse Ox 05/30/17 13:18 84 05/30/17 12:00 94 118/61 94 L 05/30/17 08:48 80 05/30/17 08:34 78 05/30/17 08:33 100 143/76 97 05/30/17 08:00 97.0 F L 99 180/82 93 L 05/30/17 03:45 97.5 F L 89 18 156/97 94 L 05/29/17 23:15 97.5 F L 93 18 145/76 92 L 05/29/17 21:15 97.6 F 99 18 158/74 93 L 05/29/17 19:53 88 05/29/17 19:43 88 Intake and Output 05/30/17 05/30/17 05/30/17 06:59 14:59 22:59 Intake Total 480 Output Total 1100 Balance -620 Intake: Oral 480 Output: Urine 1100 Other: # Voids 1 Weight 105.4 kg 105.4 kg Patient Weight 05/31/17 06:59 Weight 105.4 kg Results - Laboratory Findings CBC and BMP: 05/30/17 10:45 05/30/17 06:00 PT/INR, D-dimer PT 10.0 sec (9.0-12.0) 05/30/17 10:45 INR 1.0 (<1.2) 05/30/17 10:45 Abnormal lab findings: Abnormal Labs 05/28/17 05/28/17 05/28/17 15:00 16:34 20:51 Lymphocytes # APTT Potassium BUN Glucose POC Glucose (mg/dL) 108 H 190 H Hemoglobin A1c Troponin I 0.038 H* Triglycerides HDL Cholesterol Ur Specific [place] Urine Protein 05/28/17 05/29/17 05/29/17 23:20 04:40 06:04 Lymphocytes # APTT Potassium 3.3 L BUN 18 H Glucose 191 H POC Glucose (mg/dL) 214 H Hemoglobin A1c Troponin I 0.035 H* Triglycerides HDL Cholesterol Ur Specific [place] Urine Protein 05/29/17 05/29/17 05/29/17 15:07 15:07 15:14 Lymphocytes # APTT Potassium 3.3 L BUN Glucose 161 H POC Glucose (mg/dL) Hemoglobin A1c 9.4 H Troponin I Triglycerides 216 H HDL Cholesterol 36 L Ur Specific [place] >1.050 H Urine Protein Trace H 05/29/17 05/29/17 05/29/17 15:28 17:04 20:49 Lymphocytes # APTT Potassium BUN Glucose POC Glucose (mg/dL) 167 H 222 H 205 H Hemoglobin A1c Troponin I Triglycerides HDL Cholesterol Ur Specific [place] Urine Protein 05/30/17 05/30/17 05/30/17 06:00 06:21 10:45 Lymphocytes # 0.8 L APTT Potassium BUN Glucose 176 H POC Glucose (mg/dL) 161 H Hemoglobin A1c Troponin I Triglycerides HDL Cholesterol Ur Specific [place] Urine Protein 05/30/17 05/30/17 10:45 11:16 Lymphocytes # APTT 21.3 L Potassium BUN Glucose POC Glucose (mg/dL) 283 H Hemoglobin A1c Troponin I Triglycerides HDL Cholesterol Ur Specific [place] Urine Protein Assessment and Plan Plan: This is a joint evaluations was done along with a nurse practitioner. This patient carries an increased risk of postoperative pulmonary complications by the fact that she has a history of COPD, morbid obesity and severe obstructive sleep apnea. She may carry increased risk of atelectasis, pneumonia as, respiratory failure requiring intubation and prolonged mechanical ventilation. She may even require a tracheostomy based on history of severe systematic obstructive sleep apnea. In any rate, these are not absolute contraindications. Her COPD stable. I realize on the CAT scan of the chest is an axillary mass for which I recommend a interventional radiology evaluation for possible fine-needle aspiration to make sure there is no recurrent malignancy. I would also recommend a room air blood gas to assess her acid base status and look for any CO2 retention. continue bronchodilators. Continue incentive spirometer. Repeat spirometry to reevaluate her FEV1. We' ll continue to follow.
--- NOTE | 2017-05-29 20:37 | CT ---
EXAMINATION TYPE: CT chest wo con DATE OF EXAM: 05/29/2017 COMPARISON: Radiograph 05/28/2017 HISTORY: 66-year-old female Evaluate aorta TECHNIQUE: Contiguous axial scanning of the chest without IV contrast. Coronal and sagittal reconstru ctions performed. CT DLP: 860 mGycm Automated exposure control for dose reduction was used. FINDINGS: The heart is mildly enlarged without pericardial effusion. Coronary vessel calcifications are present . Marker for coronary artery disease. Mild ectasia of the ascending aorta at 3.6 cm. Mild atherosclerotic arch calcifications with conventi onal arterial vessel branching anatomy. Otherwise, there is mild tortuosity of the descending thoraci c aorta with normal caliber. Scattered nonenlarged mediastinal lymph nodes are present, largest at the right tracheobronchial angl e measuring borderline enlarged at 1 cm. There is a large right axillary mass that appears oval and circumscribed measuring 6.5 x 4.8 cm. Ther e is heterogeneous internal density. Suggestion of an overlying scar extending to the skin surface. In addition, there is suggestion of some distortion in the upper outer quadrant of the right breast, axial image 17 and some mild diffuse skin thickening of the right breast. There is a small right pleural effusion with mild adjacent atelectasis very mild diffuse bronchial wa ll thickening without consolidation. Suggestion of a tiny hiatal hernia. 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 Partially visualized bilateral nephrolith iasis measuring up to at least 8 mm on the right and 1.2 cm on the left. Subcentimeter exophytic hypo density posterior upper pole left kidney too small for accurate CT characterization, probable cortica l cyst. Bone: Mild superior endplate compression deformity of T11. There appears to have been some anterior w edging on 01/31/2016 ingesting chronic compression injury. Mild endplate spondylosis throughout the th oracic spine. No osseous destructive process seen. IMPRESSION: 1. Cardiomegaly and CAD. There is a small right pleural effusion. Correlate for possible mild CHF as the etiology. There is no albaro pulmonary edema. 2. Mild ectasia of the ascending aorta (3.6 cm). 3. Circumscribed right axillary mass measuring 6.5 x 4.8 cm. Correlate with physical exam findings an d any surgical/oncologic history as there seems to be some scarring extending from the mass to the sk in surface. In the setting of prior breast cancer, locoregional recurrence and chronic postoperative seroma/hematoma are in the differential. 4. Some distortion in the upper outer quadrant of the right breast may relate to postsurgical scar if there was a prior lumpectomy. Correlate with a diagnostic mammographic workup as indicated. 5. A 2.4 cm left adrenal nodule has density characteristics suggestive of a lipid rich adrenal adenom a. 6. Bilateral nephrolithiasis. 7. Mild superior endplate compression deformity of T11 suspected chronic. Correlate for any focal hernesto n at this level.
[2017-05-29 20:41] LABS: Hepatitis A Antibody IgM Non-Reactive (Non-Reactive); Hepatitis B Core IgM Non-Reactive (Non-Reactive)
[2017-05-29 20:57] LABS: Glucose,Whole Blood 205 mg/dL (75-99)
[2017-05-29] MEDS: FUROSEMIDE 40 MG TAB PO SCH (21:22)
[2017-05-29] MEDS: METOPROLOL TARTRATE 25 MG TAB PO SCH (21:22)
[2017-05-29] MEDS: MONTELUKAST 10 MG TAB PO SCH (21:22)
[2017-05-29] MEDS: ATORVASTATIN 40 MG TAB PO SCH (21:22)
--- NOTE | 2017-05-29 22:13 | P.PN ---
Subjective Progress Note Date: 05/29/17 Principal diagnosis: Unstable angina Patient is a 66 alert female with a known history of coronary disease and stent placement in 2010, hypertension, diabetes type 2, hyperlipidemia initially presented to [facility] with complaints of chest pressure and left jaw discomfort. Patient also having shortness of breath associated. Patient was also found have leg swelling left more than right. Pt. has been having these worsening symptoms for the past 3 weeks. No fever no chills. Patient recently had pneumonia and required to have thoracentesis. EKG showed normal sinus rhythm at Hospital Chest x-ray showed right lower lobe infiltrate and small effusion improved from previous study Blood sugar is 446 Initial troponin level is 0.03 and 0.038 Patient does have orthopnea at home. Otherwise saturating well on room air,. Cardiology was consulted. 05/29/2017 Currently patient is sitting in the chair comfortably. Shortness of breath much improved. As well as leg swelling. Patient underwent cardiac catheterization today showed significant multivessel coronary calcification. Cardiac surgery has been consulted to evaluate for coronary artery bypass graft. Patient is undergoing preoperative evaluation. Plavix has been held. Lasix changed to by mouth. Otherwise currently patient denied any chest pain or shortness of breath. No nausea vomiting. No headache or dizziness. All other review of systems negative except the above Current medications reviewed Active Medications Albuterol/Ipratropium (Duoneb 0.5 Mg-3 Mg/3 Ml Soln) 3 ml INHALATION RT-TID [facility] Last Admin: 05/29/17 19:39 Dose: 3 ml Alprazolam (Xanax) 0.25 mg PO Q6HR PRN PRN Reason: Mild Anxiety Alprazolam (Xanax) 0.5 mg PO Q6HR PRN PRN Reason: Moderate Anxiety Amlodipine Besylate (Norvasc) 5 mg PO DAILY [facility] Last Admin: 05/29/17 08:37 Dose: 5 mg Anastrozole (Arimidex) 1 mg PO DAILY [facility] Last Admin: 05/29/17 08:39 Dose: 1 mg Aspirin (Aspirin) 81 mg PO DAILY [facility] Atorvastatin Calcium (Lipitor) 40 mg PO HS [facility] Last Admin: 05/29/17 21:22 Dose: 40 mg Budesonide (Pulmicort) 0.5 mg INHALATION RT-BID [facility] Last Admin: 05/29/17 19:39 Dose: 0.5 mg Clonidine (Catapres) 0.1 mg PO DAILY [facility] Last Admin: 05/29/17 08:37 Dose: 0.1 mg Furosemide (Lasix) 40 mg PO BID [facility] Last Admin: 05/29/17 21:22 Dose: 40 mg Insulin Aspart (Novolog) 6 unit SQ W/LUNCH [facility] Last Admin: 05/29/17 13:38 Dose: Not Given Insulin Aspart (Novolog) 8 unit SQ BID-W/MEALS [facility] Last Admin: 05/29/17 17:51 Dose: 8 unit Insulin Detemir (Levemir) 60 unit SQ DAILY [facility] Last Admin: 05/29/17 15:30 Dose: 60 unit Isosorbide Mononitrate (Imdur) 60 mg PO DAILY [facility] Last Admin: 05/29/17 08:37 Dose: 60 mg Lisinopril (Zestril) 20 mg PO DAILY [facility] Last Admin: 05/29/17 08:37 Dose: 20 mg Metoprolol Tartrate (Lopressor) 25 mg PO BID [facility] Last Admin: 05/29/17 21:22 Dose: 25 mg Miscellaneous Information (Rx Info: Iv Contrast Was Given) 1 each MISCELLANE DAILY PRN PRN Reason: Per Protocol Stop: 05/31/17 13:02 Montelukast Sodium (Singulair) 10 mg PO HS [facility] Last Admin: 05/29/17 21:22 Dose: 10 mg Nitroglycerin (Nitrostat) 0.4 mg SUBLINGUAL Q5M PRN PRN Reason: Chest Pain Fosamax 70 Mg 70 mg PO Daniels@0630 [facility] Pantoprazole Sodium (Protonix) 40 mg PO AC-BRKFST [facility] Last Admin: 05/29/17 06:39 Dose: 40 mg Objective - Vital Signs Vital signs: Vital Signs Temp 97.6 F 05/29/17 08:00 Pulse 88 05/29/17 19:53 Resp 18 05/29/17 16:00 BP 136/65 05/29/17 16:00 Pulse Ox 94 L 05/29/17 16:00 Intake & Output 05/29/17 05/29/17 05/30/17 06:59 18:59 06:59 Intake Total 838.491 Output Total 300 Balance 538.491 Weight 105.4 kg Intake: IV 350 Intake, IV Titration 248.491 Amount Heparin Sod,Pork in 0.45% 248.491 NaCl 25,000 unit In 0.45 % NaCl 1 500ml.bag @ 9.4 UNITS/KG/HR 19.89 mls/hr IV .Q24H [facility] Rx#: [id number] Oral 240 Output: Urine 300 Other: # Voids 1 - Exam Patient is lying in the bed comfortably, no acute distress, awake alert and oriented.. HEENT: Normocephalic. Neck is supple. Pupils reactive. Nostrils clear. Oral cavity is moist. Ears reveal no drainage. Neck reveals no JVD, carotid bruits, or thyromegaly. CHEST EXAMINATION: Trachea is central. Symmetrical expansion. Right basilar crackles and minimal expiratory wheeze. Positive rhonchi CARDIAC: Normal S1, S2 with no gallops. No murmurs ABDOMEN: Soft. Bowel sounds normal. No organomegaly. No abdominal bruits. Extremities: 3+ left lower extremity and 2+ right lower extremity edema. No clubbing or cyanosis Neurologically awake, alert, oriented x3 with well-coordinated movements. No focal deficits noted Skin: No rash or skin lesions. Psychiatric: Coperative. Nonsuicidal Musculoskeletal: No joint swelling or deformity. Normal range of motion. - Labs CBC & Chem 7: 05/29/17 15:07 05/29/17 15:07 Labs: Abnormal Lab Results - Last 24 Hours (Table) 05/28/17 05/29/17 05/29/17 Range/Units 23:20 04:40 06:04 Potassium 3.3 L (3.5-5.1) mmol/L BUN 18 H (7-17) mg/dL Glucose 191 H (74-99) mg/dL POC Glucose (mg/dL) 214 H (75-99) mg/dL Troponin I 0.035 H* (0.000-0.034) ng/mL Triglycerides (<150) mg/dL HDL Cholesterol (40-60) mg/dL Ur Specific [place] (1.001-1.035) Urine Protein (Negative) 05/29/17 05/29/17 05/29/17 Range/Units 15:07 15:14 15:28 Potassium 3.3 L (3.5-5.1) mmol/L BUN (7-17) mg/dL Glucose 161 H (74-99) mg/dL POC Glucose (mg/dL) 167 H (75-99) mg/dL Troponin I (0.000-0.034) ng/mL Triglycerides 216 H (<150) mg/dL HDL Cholesterol 36 L (40-60) mg/dL Ur Specific [place] >1.050 H (1.001-1.035) Urine Protein Trace H (Negative) 05/29/17 05/29/17 Range/Units 17:04 20:49 Potassium (3.5-5.1) mmol/L BUN (7-17) mg/dL Glucose (74-99) mg/dL POC Glucose (mg/dL) 222 H 205 H (75-99) mg/dL Troponin I (0.000-0.034) ng/mL Triglycerides (<150) mg/dL HDL Cholesterol (40-60) mg/dL Ur Specific [place] (1.001-1.035) Urine Protein (Negative) Assessment and Plan Assessment: Atypical chest pain/pressure radiating to the jaw and left arm. Status post cardiac catheterization Significant multivessel coronary sensation Interstitial edema. Possible acute CHF but BNP is 399 Recent pneumonia and pleural effusion requiring thoracentesis History of coronary artery disease with stent placement to RCA into the 11 Diabetes type 2 insulin-dependent Hypertension Hyperlipidemia Morbid obesity with BMI 41.3 Obstructive sleep apnea on BiPAP GERD Plan: Patient will be continued on telemetry monitoring. Lasix dose changed to 40 mg twice a day by mouth. Continue with home medications. Lower extremity duplex is negative for DVT. Insulin dosing and CBG monitoring Cardiology is following and preoperative evaluation for cardiac surgery.. Further recommendations based on the clinical course. Time with Patient: Greater than 30
[2017-05-30 02:03] LABS: Hemoglobin A1C 9.4 % (4.0-6.0)
[2017-05-30] MEDS: PANTOPRAZOLE 40 MG TABLET PO SCH (06:30)
[2017-05-30 06:35] LABS: Glucose,Whole Blood 161 mg/dL (75-99)
[2017-05-30 06:43] LABS: Basophils # (A) 0.1 k/uL (0-0.2); Basophils % (A) 1 %; Eosinophils # (A) 0.2 k/uL (0-0.7); Eosinophils % (A) 4 %; HCT 35.1 % (34.0-46.0); HGB 11.5 gm/dL (11.4-16.0); Lymphocytes # (A) 1.1 k/uL (1.0-4.8); Lymphocytes % (A) 22 %; MCH 28.1 pg (25.0-35.0); MCHC 32.8 g/dL (31.0-37.0); MCV 85.6 fL (80.0-100.0); Mean Platelet Volume 7.3; Monocytes # (A) 0.3 k/uL (0-1.0); Monocytes % (A) 5 %; Neutrophils # (A) 3.3 k/uL (1.3-7.7); Neutrophils % (A) 65 %; Platelet Count 212 k/uL (150-450); RDW 14.7 % (11.5-15.5)
[2017-05-30 06:52] LABS: Potassium 3.5 mmol/L (3.5-5.1)
[2017-05-30] MEDS: INSULIN ASPART 100 UNIT/ML 1 ML 10 ML VIAL SQ SCH ×5 (07:03→21:03)
[2017-05-30] MEDS: NITROGLYCERIN SL TABS 0.4 MG TAB SUBLINGUAL PRN (08:16)
[2017-05-30] MEDS: cloNIDine HCL 0.1 MG TAB PO SCH (08:17)
[2017-05-30] MEDS: ANASTROZOLE 1 MG TAB PO SCH (08:17)
[2017-05-30] MEDS: ASPIRIN 81 MG PO SCH (08:17)
[2017-05-30] MEDS: amLODIPine 5 MG TAB PO SCH (08:17)
[2017-05-30] MEDS: FUROSEMIDE 40 MG TAB PO SCH ×2 (08:18→20:01)
[2017-05-30] MEDS: LISINOPRIL 20 MG TAB PO SCH (08:18)
[2017-05-30] MEDS: ISOSORBIDE MONONITRATE ER 60 MG TAB.ER.24H PO SCH (08:18)
[2017-05-30] MEDS: METOPROLOL TARTRATE 25 MG TAB PO SCH ×2 (08:18→20:01)
[2017-05-30] MEDS: INSULIN DETEMIR 100 UNIT/ML 10 ML VIAL SQ SCH (08:23)
[2017-05-30] MEDS: BUDESONIDE 0.5 MG/2 ML NEBU INHALATION SCH ×2 (08:33→19:54)
[2017-05-30] MEDS: IPRATROPIUM-ALBUTEROL 3 ML NEB INHALATION SCH ×3 (08:33→19:54)
[2017-05-30] MEDS ORDERED: HEPARIN SODIUM,PORCINE 5,000 UNIT/ML 1 ML VIAL IV ONE (10:15)
--- NOTE | 2017-05-30 10:31 | P.PN ---
Subjective Progress Note Date: 05/30/17 Principal diagnosis: Multivessel coronary artery disease. Previous medical history of hypertension, hyperlipidemia, insulin dependent diabetes mellitus with current hemoglobin A1c 9.4%, previous myocardial infarction with stent placement to the RCA in 2010, obesity, obstructive sleep apnea, recent pneumonia in March 2017, previous tobacco dependence, right breast cancer with lumpectomy and radiation, and family history of premature coronary artery disease. The patient's currently sitting up in a chair in no acute distress. Denies pain and shortness of breath for me this morning, however she did have an episode of chest pain shortly after my assessment which was relieved with sublingual nitro. Objective - Vital Signs Vital signs: Vital Signs Temp 97.0 F L 05/30/17 08:00 Pulse 80 05/30/17 08:48 Resp 18 05/30/17 03:45 BP 143/76 05/30/17 08:33 Pulse Ox 97 05/30/17 08:33 Intake & Output 05/29/17 05/30/17 05/30/17 18:59 06:59 18:59 Intake Total 838.491 240 Output Total 300 Balance 538.491 240 Weight 105.4 kg 105.4 kg Intake: IV 350 Intake, IV Titration 248.491 Amount Heparin Sod,Pork in 0.45% 248.491 NaCl 25,000 unit In 0.45 % NaCl 1 500ml.bag @ 9.4 UNITS/KG/HR 19.89 mls/hr IV .Q24H [facility] Rx#: [id number] Oral 240 240 Output: Urine 300 Other: # Voids 1 - Constitutional General appearance: Present: cooperative, no acute distress, obese - Respiratory Details: Lungs sounds diminished bilaterally. Respirations even, nonlabored. Currently on room air with oxygen saturation 94%. - Cardiovascular Details: S1, S2 present. Regular rate and rhythm, sinus rhythm on telemetry. Palpable peripheral pulses bilaterally. Trace bilateral lower extremity edema present. - Gastrointestinal Gastrointestinal Comment(s): Abdomen soft, nontender, nondistended. Active bowel sounds 4 quadrants. Tolerating diet. - Genitourinary Genitourinary Comment(s): Continues to void clear yellow urine. - Integumentary Integumentary Comment(s): Skin is warm and dry. Bilateral lower extremity is to show evidence of vascular disease, both legs are edematous, reddened, dry, hairless. - Neurologic Neurologic: Present: CNII-XII intact - Musculoskeletal Musculoskeletal: Present: gait normal, strength equal bilaterally - Psychiatric Psychiatric: Present: A&O x's 3, appropriate affect, intact judgment & insight - Allied health notes Allied health notes reviewed: nursing - Labs CBC & Chem 7: 05/30/17 06:00 05/30/17 06:00 Labs: Abnormal Lab Results - Last 24 Hours (Table) 05/29/17 05/29/17 05/29/17 Range/Units 15:07 15:07 15:14 Potassium 3.3 L (3.5-5.1) mmol/L Glucose 161 H (74-99) mg/dL POC Glucose (mg/dL) (75-99) mg/dL Hemoglobin A1c 9.4 H (4.0-6.0) % Triglycerides 216 H (<150) mg/dL HDL Cholesterol 36 L (40-60) mg/dL Ur Specific [place] >1.050 H (1.001-1.035) Urine Protein Trace H (Negative) 05/29/17 05/29/17 05/29/17 Range/Units 15:28 17:04 20:49 Potassium (3.5-5.1) mmol/L Glucose (74-99) mg/dL POC Glucose (mg/dL) 167 H 222 H 205 H (75-99) mg/dL Hemoglobin A1c (4.0-6.0) % Triglycerides (<150) mg/dL HDL Cholesterol (40-60) mg/dL Ur Specific [place] (1.001-1.035) Urine Protein (Negative) 05/30/17 05/30/17 Range/Units 06:00 06:21 Potassium (3.5-5.1) mmol/L Glucose 176 H (74-99) mg/dL POC Glucose (mg/dL) 161 H (75-99) mg/dL Hemoglobin A1c (4.0-6.0) % Triglycerides (<150) mg/dL HDL Cholesterol (40-60) mg/dL Ur Specific [place] (1.001-1.035) Urine Protein (Negative) Microbiology - Last 24 Hours (Table) 05/29/17 15:14 Urine Culture - Preliminary Urine,Voided 05/29/17 15:14 Nasal Screen MRSA/MSSA ([facility]) - Preliminary Nasal Swab - Imaging and Cardiology CT scan - chest: report reviewed, image reviewed Venous US: report reviewed, image reviewed Assessment and Plan (1) Hypertension Current Visit: Yes Status: Chronic Code(s): I10 - ESSENTIAL (PRIMARY) HYPERTENSION SNOMED Code(s): 29246442 (2) Hyperlipidemia Current Visit: Yes Status: Chronic Code(s): E78.5 - HYPERLIPIDEMIA, UNSPECIFIED SNOMED Code(s): 77253866 (3) Diabetes mellitus Current Visit: Yes Status: Chronic Code(s): E11.9 - TYPE 2 DIABETES MELLITUS WITHOUT COMPLICATIONS SNOMED Code(s): 02213354 (4) Previous myocardial infarction older than 8 weeks Current Visit: No Status: Resolved Code(s): I25.2 - OLD MYOCARDIAL INFARCTION SNOMED Code(s): 8752844 (5) History of heart artery stent Current Visit: Yes Status: Chronic Code(s): Z95.5 - PRESENCE OF CORONARY ANGIOPLASTY IMPLANT AND GRAFT SNOMED Code(s): 213832784 (6) Tobacco dependence in remission Current Visit: No Status: Resolved Code(s): F17.201 - NICOTINE DEPENDENCE, UNSPECIFIED, IN REMISSION SNOMED Code(s): 549538000 (7) Family history of premature coronary artery disease Current Visit: Yes Status: Chronic Code(s): Z82.49 - FAMILY HX OF ISCHEM HEART DIS AND OTH DIS OF THE CIRC SYS SNOMED Code(s): 615729465 (8) History of right breast cancer Current Visit: No Status: Resolved Code(s): Z85.3 - PERSONAL HISTORY OF MALIGNANT NEOPLASM OF BREAST SNOMED Code(s): 361519257 (9) Non-STEMI (non-ST elevated myocardial infarction) Current Visit: Yes Status: Acute Code(s): I21.4 - NON-ST ELEVATION (NSTEMI) MYOCARDIAL INFARCTION SNOMED Code(s): 769688083 (10) Morbid obesity with BMI of 40.0-44.9, adult Current Visit: Yes Status: Chronic Code(s): E66.01 - MORBID (SEVERE) OBESITY DUE TO EXCESS CALORIES; Z68.41 - BODY MASS INDEX (BMI) 40.0-44.9, ADULT SNOMED Code(s): 162332041 Plan: 1. Continue aspirin, statin, beta doretha, ARB. Heparin drip to be started and continued until 2 hours prior to surgery. Hold Plavix. 2. Increase activity, ambulate as tolerated. 3. Pulmonary function test to be completed today, incentive spirometry ordered. Encourage incentive spirometry use. 4. Reinforce preoperative teaching. 5. Will perform 5 m walk today. 6. Medical management per primary care service. 7. Plan is for coronary artery bypass graft surgery on June 05. This has been discussed with the patient and she is agreeable to surgery. 8. More recommendations to follow. Time with Patient: Greater than 30
--- NOTE | 2017-05-30 11:00 | P.PN ---
Subjective Progress Note Date: 05/30/17 Principal diagnosis: Non-STEMI This is a 66-year-old female with history of hypertension, diabetes, hyperlipidemia, coronary artery disease with prior stent placement to the right coronary artery in 2010, she follows with Dr. Oliveros in the office. According to the patient she had pneumonia in March and had been recovering from that quite well. She states that she presented to [facility] with symptoms of jaw discomfort as well as a left shoulder discomfort. She also states that she's been mildly short of breath, and persistent have swelling in both of her lower extremities. For all of the above reason she presented to [facility]. Initial EKG performed at [facility] showed a normal sinus rhythm with a left bundle-branch block pattern. Chest x- ray performed there revealed a right lower lobe infiltrate and small effusion, improved from prior exam. WBC 7.6, hemoglobin 11.7, platelet count 209 INR 1.07 , glucose 446. Sodium 138, potassium 3.4, BUN 17, creatinine 0.8. Magnesium level I.1. Initial troponin 0.03 which is negative. At the time of my examination, patient denies any current discomfort in her jaw or shoulder. Breathing is overall stable. Patient does state that she sleeps in a chair however, because if she lies flat she has a hockey cough and it's difficult to breathe. Blood pressure [facility] 164/75 with a heart rate in the 90s, she is afebrile, 97% on room air. Patient is just coming to the telemetry unit , no vital signs EKG or labs have been performed here yet. 05/30/2017 Troponins were obtained here which came back to be 0.038, 0.035, 0.026. Patient underwent a cardiac catheterization yesterday by Dr. Oliveros which revealed critical stenosis involving the proximal and mid LAD, critical stenosis involving the right coronary artery in multiple segments, diffuse disease in the left circumflex, preserved LV size and systolic function. Cardiothoracic surgery were consulted for bypass surgery. Patient was seen in consultation and scheduled for bypass surgery on Sunday, Plavix is currently on hold. This morning patient did have an episode of chest discomfort, heparin drip had not yet been started, it will be initiated now. Patient will stay in the hospital until her bypass surgery on Sunday. Blood pressure 140/70 with a heart rate in the 70s. Objective - Vital Signs Vital signs: Vital Signs Temp 97.0 F L 05/30/17 08:00 Pulse 80 05/30/17 08:48 Resp 18 05/30/17 03:45 BP 143/76 05/30/17 08:33 Pulse Ox 97 05/30/17 08:33 Intake & Output 05/29/17 05/30/17 05/30/17 18:59 06:59 18:59 Intake Total 838.491 240 Output Total 300 Balance 538.491 240 Weight 105.4 kg 105.4 kg Intake: IV 350 Intake, IV Titration 248.491 Amount Heparin Sod,Pork in 0.45% 248.491 NaCl 25,000 unit In 0.45 % NaCl 1 500ml.bag @ 9.4 UNITS/KG/HR 19.89 mls/hr IV .Q24H [facility] Rx#: [id number] Oral 240 240 Output: Urine 300 Other: # Voids 1 - Exam PHYSICAL EXAMINATION: HEENT: Head is atraumatic, normocephalic. Pupils equal, round. Neck is supple. There is no elevated jugular venous pressure. HEART EXAMINATION: Heart S1 and S2 with systolic ejection murmur is heard. CHEST EXAMINATION: Lungs are clear to auscultation and precussion. No chest wall tenderness is noted on palpation or with deep breathing. ABDOMEN: Soft, nontender. Bowel sounds are heard. No organomegaly noted. EXTREMITIES: 2+ peripheral pulses with evidence of peripheral edema , bilateral lower extremity redness . Right radial site clean and dry, good distal pulse. NEUROLOGIC patient is awake, alert and oriented -3. . - Labs CBC & Chem 7: 05/30/17 06:00 05/30/17 06:00 Labs: Abnormal Lab Results - Last 24 Hours (Table) 05/29/17 05/29/17 05/29/17 Range/Units 15:07 15:07 15:14 Potassium 3.3 L (3.5-5.1) mmol/L Glucose 161 H (74-99) mg/dL POC Glucose (mg/dL) (75-99) mg/dL Hemoglobin A1c 9.4 H (4.0-6.0) % Triglycerides 216 H (<150) mg/dL HDL Cholesterol 36 L (40-60) mg/dL Ur Specific [place] >1.050 H (1.001-1.035) Urine Protein Trace H (Negative) 05/29/17 05/29/17 05/29/17 Range/Units 15:28 17:04 20:49 Potassium (3.5-5.1) mmol/L Glucose (74-99) mg/dL POC Glucose (mg/dL) 167 H 222 H 205 H (75-99) mg/dL Hemoglobin A1c (4.0-6.0) % Triglycerides (<150) mg/dL HDL Cholesterol (40-60) mg/dL Ur Specific [place] (1.001-1.035) Urine Protein (Negative) 05/30/17 05/30/17 Range/Units 06:00 06:21 Potassium (3.5-5.1) mmol/L Glucose 176 H (74-99) mg/dL POC Glucose (mg/dL) 161 H (75-99) mg/dL Hemoglobin A1c (4.0-6.0) % Triglycerides (<150) mg/dL HDL Cholesterol (40-60) mg/dL Ur Specific [place] (1.001-1.035) Urine Protein (Negative) Microbiology - Last 24 Hours (Table) 05/29/17 15:14 Urine Culture - Preliminary Urine,Voided 05/29/17 15:14 Nasal Screen MRSA/MSSA ([facility]) - Preliminary Nasal Swab Assessment and Plan Plan: Assessment and plan #1 non-Q-wave DC #2 symptoms of PND and orthopnea with associated peripheral edema, chest x-ray shows infiltrate which is improving from prior x-ray. We will obtain a BNP level and repeat chest x-ray here. #3 known history of coronary artery disease with prior RCA stenting in 2010 #4 diabetes 5 hypertension #6 hyperlipidemia #7 family history of premature coronary artery disease Plan Patient underwent a cardiac catheterization yesterday which revealed multivessel coronary artery disease. IV heparin will be initiated, patient will be scheduled undergo coronary bypass grafting surgery on Sunday. Plavix is on hold. DNP note has been reviewed, I agree with a documented findings and plan of care. Patient was seen and examined.
[2017-05-30 11:11] LABS: Basophils # (A) 0.1 k/uL (0-0.2); Basophils % (A) 1 %; Eosinophils # (A) 0.1 k/uL (0-0.7); Eosinophils % (A) 2 %; Hypochromasia Slight; Lymphocytes # (A) 0.8 k/uL (1.0-4.8); Lymphocytes % (A) 14 %; MCH 28.4 pg (25.0-35.0); MCHC 32.5 g/dL (31.0-37.0); MCV 87.6 fL (80.0-100.0); Mean Platelet Volume 7.5; Monocytes # (A) 0.2 k/uL (0-1.0); Monocytes % (A) 4 %; Neutrophils # (A) 4.3 k/uL (1.3-7.7); Neutrophils % (A) 77 %; Platelet Count 243 k/uL (150-450); RBC 4.22 m/uL (3.80-5.40); RDW 14.7 % (11.5-15.5); WBC 5.6 k/uL (3.8-10.6)
[2017-05-30 11:18] LABS: Glucose,Whole Blood 283 mg/dL (75-99)
[2017-05-30 11:42] LABS: Partial Thromboplastin Time 21.3 sec (22.0-30.0)
[2017-05-30] MEDS: HEPARIN SOD,PORK IN 0.45% NACL 25,000 UNIT in 0.45% NACL 1 500ML.BAG IV SCH (11:59)
--- NOTE | 2017-05-30 16:09 | P.PN ---
Subjective Progress Note Date: 05/30/17 On today's evaluation of 05/30/2017 the patient is being seen in follow-up. The patient is resting comfortably in bed. Noted the patient was seen yesterday for a preoperative cardiac clearance. I had a lengthy discussion with her. The patient has morbid obesity, COPD and addition to severe obstructive sleep apnea. The patient with kidney and increased risk of developing postoperative pulmonary complications should thoracotomy and bypass surgery is done. Nevertheless, weighing the risks and benefits, the patient should be able to undertake these risks. For now the patient IV heparin. Her troponins came back positive at 0.038, 0.035 and 0.0 26. The patient's family chest pain for now. CV surgery is on the case. The patient is off Plavix. The patient is being considered for coronary artery bypass surgery next week. She is hemodynamically stable at this point. No cough sputum production or chest that is so wheezing. She tells me that her BiPAP machine was taken away from her as the patient did not demonstrate adequate data as she was hospitalized for pneumonia. Her pneumonia essentially cleared showed no parenchymal lung abnormalities. There is no mediastinal lymphadenopathy. There was a large right axillary lesion measuring 6.5 x 4.8 cm in size ejection of a cyst with overlying scar. Her was a small right-sided pleural effusion with some mild atelectatic changes and mild diffuse bronchial wall thickening without consolidation, and there is a l small hiatal hernia. A 2.4 cm left of the nodule was also seen which is a adenoma and the patient has compression deformity of the level of T11. Objective - Vital Signs Vital signs: Vital Signs Temp 97.0 F L 05/30/17 08:00 Pulse 84 05/30/17 13:18 Resp 18 05/30/17 03:45 BP 118/61 05/30/17 12:00 Pulse Ox 94 L 05/30/17 12:00 Intake & Output 05/29/17 05/30/17 05/30/17 18:59 06:59 18:59 Intake Total 838.491 480 Output Total 300 1100 Balance 538.491 -620 Weight 105.4 kg 105.4 kg Intake: IV 350 Intake, IV Titration 248.491 Amount Heparin Sod,Pork in 0.45% 248.491 NaCl 25,000 unit In 0.45 % NaCl 1 500ml.bag @ 9.4 UNITS/KG/HR 19.89 mls/hr IV .Q24H [facility] Rx#: [id number] Oral 240 480 Output: Urine 300 1100 Other: # Voids 1 - Exam Head exam was generally normal. There was no scleral icterus or corneal arcus. Mucous membranes were moist. Patient is obese. She is calm and comfortable and she is on acute distress.Neck was supple and without jugular venous distension, thyromegaly, or carotid bruits. Carotids were easily palpable bilaterally. There was no adenopathy. Neck is short and supple and the patient has significant crowding of posterior pharynx. Patient has a Mallampati class IV. There is no goiter or neck masses. Lungs sounds are diminished bilaterally especially in lung bases.Cardiac exam revealed the PMI to be normally situated and sized. The rhythm was regular and no extrasystoles were noted during several minutes of auscultation. The first and second heart sounds were normal and physiologic splitting of the second heart sound was noted. There were no murmurs, rubs, clicks, or gallops.Abdominal exam revealed normal bowel sounds. The abdomen was soft, non-tender, and without masses, organomegaly , or appreciable enlargement of the abdominal aorta. Patient is obese and CANNOT be accurately palpated. Extremities show adequate pulses in lower oximetry is bilaterally without any cyanosis or clubbing. Neurologically the patient is awake 3 and there is no focal neurological deficit. Psychiatric to the patient has appropriate mood and affect. - Labs CBC & Chem 7: 05/30/17 10:45 05/30/17 06:00 Labs: Abnormal Lab Results - Last 24 Hours (Table) 05/29/17 05/29/17 05/29/17 Range/Units 15:07 17:04 20:49 Lymphocytes # (1.0-4.8) k/uL APTT (22.0-30.0) sec Glucose (74-99) mg/dL POC Glucose (mg/dL) 222 H 205 H (75-99) mg/dL Hemoglobin A1c 9.4 H (4.0-6.0) % 05/30/17 05/30/17 05/30/17 Range/Units 06:00 06:21 10:45 Lymphocytes # 0.8 L (1.0-4.8) k/uL APTT (22.0-30.0) sec Glucose 176 H (74-99) mg/dL POC Glucose (mg/dL) 161 H (75-99) mg/dL Hemoglobin A1c (4.0-6.0) % 05/30/17 05/30/17 Range/Units 10:45 11:16 Lymphocytes # (1.0-4.8) k/uL APTT 21.3 L (22.0-30.0) sec Glucose (74-99) mg/dL POC Glucose (mg/dL) 283 H (75-99) mg/dL Hemoglobin A1c (4.0-6.0) % Microbiology - Last 24 Hours (Table) 05/29/17 15:14 Urine Culture - Preliminary Urine,Voided 05/29/17 15:14 Nasal Screen MRSA/MSSA ([facility]) - Preliminary Nasal Swab Assessment and Plan Plan: #1. Symptomatic multivessel coronary artery disease involving the proximal and mid LAD, RCA and diffuse disease in the circumflex coronary artery. The patient had a mild non-ST elevation myocardial infarction the patient had symptomatic coronary artery disease with episodic chest pain on outpatient basis. The patient will need coronary artery bypass surgery. She is currently on IV heparin. #2. COPD, with a baseline FEV1 of 76% of predicted on outpatient basis. A repeat Fernandes spastic duration done today in the hospital and the patient was found to have an FEV1 of 1.76 which is 77% of predicted and this is an equivalent number to our measurement in our office few months back. Her COPD is currently inactive in stable and the patient was recently treated for a pneumonia for which she is fully recovered. #3. Obstructive sleep apnea, with baseline AHI of 80, patient was prescribed BiPAP therapy at pressures 21/17 cm of water. Currently does not have a BiPAP unit at home, patient was taken back by the equipment [employer] when the patient is hospitalized for right lung pneumonia in March 2017. Otherwise the patient is compliant with the therapy #4. Obesity, #5. Coronary artery disease, with previous stenting #6. Recent hospitalization for right lung pneumonia at [facility] in March 2017. Patient had a thoracentesis for pleural effusion during that admission #7. Hyperlipidemia, hypertension #8. History of right breast cancer with lumpectomy/lymph node removal and radiation #9. GERD/reflux #10 a large cystic structure within the right axilla. Could be a recurrent breast cancer although this is a remote possibility. Plan No absolute contraindications for the surgery from the pulmonary standpoint. She carries increased risk of atelectasis, pneumonia as, respiratory failure and prolonged intubation mechanical ventilation based on her morbid obesity, BMI of 41.2, severe MADELEINE with an AHI of 80 and a component of COPD with chronic hypoxic respiratory failure. A baseline blood gases will be also ordered on room air to assess her oxygenation and her baseline CO2 level. For now, the surgery is tentatively scheduled for next week. She is currently off Plavix. Meanwhile, I would recommend radiology ultrasounding the axillary mass and doing a fine-needle aspirate of the right axillary lesion to make sure this is not a representation of a malignancy especially with her history of breast cancer.
--- NOTE | 2017-05-30 16:29 | ECHOF ---
Referral Reason:cad MEASUREMENTS -------- HEIGHT: 160.0 cm WEIGHT: 105.2 kg BP: 142/65 RVIDd: 3.4 cm (< 3.3) IVSd: 1.7 cm (0.6 - 1.1) LVIDd: 4.4 cm (3.9 - 5.3) LVPWd: 1.6 cm (0.6 - 1.1) IVSs: 2.2 cm LVIDs: 3.1 cm LVPWs: 2.2 cm LA Diam: 3.5 cm (2.7 - 3.8) Ao Diam: 3.9 cm (2.0 - 3.7) AV Cusp: 1.9 cm (1.5 - 2.6) RAP: 5.00 mmHg RVSP: 37.45 mmHg FINDINGS -------- Sinus rhythm. This was a technically difficult study with suboptimal views. The left ventricular size is normal. There is moderate concentric left ventricular hypertrophy. O verall left ventricular systolic function is low-normal with, an EF between 50 - 55 %. Basal field mechanical meter tester ior LV wall motion is hypokinetic. Basal inferior LV wall motion is hypokinetic. Apical septum LV wall motion is hypokinetic. The right ventricle is mild to moderately enlarged. Normal LA size by volume 22+/-6 ml/m2. The right atrium was not well visualized. 3 ml of Lumason was utilized for enhancement of images. There is mild aortic valve sclerosis. Moderate mitral annular calcification present. Mild tricuspid regurgitation present. There is mild pulmonary hypertension. The right ventricular systolic pressure, as measured by Doppler, is 37.45mmHg. The pulmonic valve was not well visualized. The aortic root is dilated measuring 3.9cm. There is no pericardial effusion. CONCLUSIONS -------- 1. Sinus rhythm. 2. This was a technically difficult study with suboptimal views. 3. The left ventricular size is normal. 4. There is moderate concentric left ventricular hypertrophy. 5. Overall left ventricular systolic function is low-normal with, an EF between 50 - 55 %. 6. Basal posterior LV wall motion is hypokinetic. 7. Basal inferior LV wall motion is hypokinetic. 8. Apical septum LV wall motion is hypokinetic. 9. The right ventricle is mild to moderately enlarged. 10. Normal LA size by volume 22+/-6 ml/m2. 11. The right atrium was not well visualized. 12. 3 ml of Lumason was utilized for enhancement of images. 13. There is mild aortic valve sclerosis. 14. Moderate mitral annular calcification present. 15. Mild tricuspid regurgitation present. 16. There is mild pulmonary hypertension. 17. The right ventricular systolic pressure, as measured by Doppler, is 37.45mmHg. 18. The pulmonic valve was not well visualized. 19. The aortic root is dilated measuring 3.9cm. 20. There is no pericardial effusion. BAKERY CHEF: Roxana Escobar RDCS
[2017-05-30 16:37] LABS: Glucose,Whole Blood 315 mg/dL (75-99)
[2017-05-30] MEDS: HEPARIN SODIUM,PORCINE 5,000 UNIT/ML 1 ML VIAL IV PRN (19:52)
[2017-05-30] MEDS: ATORVASTATIN 40 MG TAB PO SCH (20:01)
[2017-05-30] MEDS: MONTELUKAST 10 MG TAB PO SCH (20:01)
[2017-05-30 20:57] LABS: Glucose,Whole Blood 285 mg/dL (75-99)
[2017-05-31 03:06] LABS: Basophils # (A) 0.1 k/uL (0-0.2); Basophils % (A) 1 %; Eosinophils # (A) 0.2 k/uL (0-0.7); Eosinophils % (A) 4 %; HCT 33.4 % (34.0-46.0); HGB 10.9 gm/dL (11.4-16.0); Lymphocytes # (A) 1.2 k/uL (1.0-4.8); Lymphocytes % (A) 21 %; MCH 28.2 pg (25.0-35.0); MCHC 32.5 g/dL (31.0-37.0); MCV 86.6 fL (80.0-100.0); Mean Platelet Volume 7.5; Monocytes # (A) 0.3 k/uL (0-1.0); Monocytes % (A) 6 %; Neutrophils # (A) 3.7 k/uL (1.3-7.7); Neutrophils % (A) 65 %; Platelet Count 194 k/uL (150-450); RBC 3.86 m/uL (3.80-5.40); RDW 14.6 % (11.5-15.5); WBC 5.7 k/uL (3.8-10.6)
[2017-05-31] MEDS: HEPARIN SODIUM,PORCINE 5,000 UNIT/ML 1 ML VIAL IV PRN ×2 (03:47→20:01)
[2017-05-31 05:42] LABS: ABG Base Excess 4.5 mmol/L; ABG HCO3 28 mmol/L (21-25); ABG Oxygen Saturation 93.3 % (94-97); ABG PCO2 40 mmHg (35-45); ABG PH 7.46 (7.35-7.45); ABG PO2 68 mmHg (83-108); ABG TCO2 30 mmol/L (19-24)
[2017-05-31 06:05] LABS: Glucose,Whole Blood 200 mg/dL (75-99)
[2017-05-31] MEDS: PANTOPRAZOLE 40 MG TABLET PO SCH (06:29)
[2017-05-31] MEDS: HEPARIN SOD,PORK IN 0.45% NACL 25,000 UNIT in 0.45% NACL 1 500ML.BAG IV SCH ×2 (06:47→20:04)
[2017-05-31] MEDS: INSULIN ASPART 100 UNIT/ML 1 ML 10 ML VIAL SQ SCH ×7 (06:58→21:10)
[2017-05-31] MEDS: BUDESONIDE 0.5 MG/2 ML NEBU INHALATION SCH ×2 (07:47→20:23)
[2017-05-31] MEDS: IPRATROPIUM-ALBUTEROL 3 ML NEB INHALATION SCH ×3 (07:47→20:23)
[2017-05-31] MEDS: FUROSEMIDE 40 MG TAB PO SCH ×2 (09:16→20:01)
[2017-05-31] MEDS: ASPIRIN 81 MG PO SCH (09:16)
[2017-05-31] MEDS: amLODIPine 5 MG TAB PO SCH (09:16)
[2017-05-31] MEDS: ANASTROZOLE 1 MG TAB PO SCH (09:16)
[2017-05-31] MEDS: cloNIDine HCL 0.1 MG TAB PO SCH (09:16)
[2017-05-31] MEDS: LISINOPRIL 20 MG TAB PO SCH (09:17)
[2017-05-31] MEDS: ISOSORBIDE MONONITRATE ER 60 MG TAB.ER.24H PO SCH (09:17)
[2017-05-31] MEDS: METOPROLOL TARTRATE 25 MG TAB PO SCH ×2 (09:17→20:01)
[2017-05-31] MEDS: INSULIN DETEMIR 100 UNIT/ML 10 ML VIAL SQ SCH (09:19)
--- NOTE | 2017-05-31 09:28 | P.PN ---
Subjective Patient sitting comfortably in a chair. No chest discomfort no dizziness lightheadedness or palpitations. She remains on IV heparin which was started yesterday On examination she is afebrile 96.8F, pulse rate in the 80s, normal respirations, blood pressure 142/81 mmHg Breath sounds are reduced bilaterally but no rhonchi no crackles Heart sounds S1 and S2 are normal Soft systolic murmur audible Abdomen is soft nontender Extremities are warm Impression Multivessel coronary artery disease awaiting coronary artery bypass grafting plan continue heparin Continue aspirin Continue antihypertensive therapy Continue statins Objective - Vital Signs Vital signs: Vital Signs Temp 96.8 F L 05/31/17 03:45 Pulse 96 05/31/17 08:04 Resp 18 05/31/17 03:45 BP 142/81 05/31/17 03:45 Pulse Ox 98 05/31/17 07:50 Intake & Output 05/30/17 05/31/17 05/31/17 18:59 06:59 18:59 Intake Total 720 964.650 120 Output Total 1100 500 Balance -380 464.650 120 Weight 105.4 kg 105.3 kg Intake: Intake, IV Titration 464.650 Amount Heparin Sod,Pork in 0.45% 464.650 NaCl 25,000 unit In 0.45 % NaCl 1 500ml.bag @ 9.5 UNITS/KG/HR 20.02 mls/hr IV .Q24H [facility] Rx#: [id number] Oral 720 500 120 Output: Urine 1100 500 Other: Voiding Method Toilet # Voids 1 - Labs CBC & Chem 7: 05/31/17 02:33 05/30/17 06:00 Labs: Abnormal Lab Results - Last 24 Hours (Table) 05/30/17 05/30/17 05/30/17 Range/Units 10:45 10:45 11:16 Hgb (11.4-16.0) gm/dL Hct (34.0-46.0) % Lymphocytes # 0.8 L (1.0-4.8) k/uL APTT 21.3 L (22.0-30.0) sec ABG pH (7.35-7.45) ABG pO2 (83-108) mmHg ABG HCO3 (21-25) mmol/L ABG Total CO2 (19-24) mmol/L ABG O2 Saturation (94-97) % POC Glucose (mg/dL) 283 H (75-99) mg/dL 05/30/17 05/30/17 05/31/17 Range/Units 16:27 20:54 02:33 Hgb 10.9 L (11.4-16.0) gm/dL Hct 33.4 L (34.0-46.0) % Lymphocytes # (1.0-4.8) k/uL APTT (22.0-30.0) sec ABG pH (7.35-7.45) ABG pO2 (83-108) mmHg ABG HCO3 (21-25) mmol/L ABG Total CO2 (19-24) mmol/L ABG O2 Saturation (94-97) % POC Glucose (mg/dL) 315 H 285 H (75-99) mg/dL 05/31/17 05/31/17 05/31/17 Range/Units 02:33 05:38 06:02 Hgb (11.4-16.0) gm/dL Hct (34.0-46.0) % Lymphocytes # (1.0-4.8) k/uL APTT 30.2 H (22.0-30.0) sec ABG pH 7.46 H (7.35-7.45) ABG pO2 68 L (83-108) mmHg ABG HCO3 28 H (21-25) mmol/L ABG Total CO2 30 H (19-24) mmol/L ABG O2 Saturation 93.3 L (94-97) % POC Glucose (mg/dL) 200 H (75-99) mg/dL Microbiology - Last 24 Hours (Table) 05/29/17 15:14 Urine Culture - Final Urine,Voided
--- NOTE | 2017-05-31 10:46 | P.PN ---
Subjective Progress Note Date: 05/31/17 Principal diagnosis: Multivessel coronary artery disease. Previous medical history of hypertension, hyperlipidemia, insulin dependent diabetes mellitus with current hemoglobin A1c 9.4%, previous myocardial infarction with stent placement to the RCA in 2010, obesity, obstructive sleep apnea, recent pneumonia in March 2017, previous tobacco dependence, right breast cancer with lumpectomy and radiation, and family history of premature coronary artery disease. The patient's currently sitting up in a chair in no acute distress. Denies pain and shortness of breath. Currently on IV heparin. Computed tomography scan of the chest x-ray to evaluate descending aorta did demonstrate finding of a right axillary mass measuring 6.5 x 4.8 cm. Objective - Vital Signs Vital signs: Vital Signs Temp 96.8 F L 05/31/17 03:45 Pulse 96 05/31/17 08:04 Resp 18 05/31/17 03:45 BP 142/81 05/31/17 03:45 Pulse Ox 98 05/31/17 07:50 Intake & Output 05/30/17 05/31/17 05/31/17 18:59 06:59 18:59 Intake Total 720 964.650 120 Output Total 1100 500 Balance -380 464.650 120 Weight 105.4 kg 105.3 kg Intake: Intake, IV Titration 464.650 Amount Heparin Sod,Pork in 0.45% 464.650 NaCl 25,000 unit In 0.45 % NaCl 1 500ml.bag @ 9.5 UNITS/KG/HR 20.02 mls/hr IV .Q24H [facility] [place] Rx#: [id number] Oral 720 500 120 Output: Urine 1100 500 Other: Voiding Method Toilet # Voids 1 - Constitutional General appearance: Present: cooperative, no acute distress, obese - Respiratory Details: Lungs sounds diminished bilaterally. Respirations even, nonlabored. Currently on 2 L nasal cannula with oxygen saturation 95%. Able to achieve 750-1000 mL on her incentive spirometer. - Cardiovascular Details: S1, S2 present. Regular rate and rhythm, sinus rhythm on telemetry. Palpable peripheral pulses bilaterally. Bilateral lower extremity edema present. No calf pain or tenderness noted. - Gastrointestinal Gastrointestinal Comment(s): Abdomen soft, nontender, nondistended. Active bowel sounds are quadrants. Tolerating diet. - Genitourinary Genitourinary Comment(s): Continues to void clear, yellow urine. - Integumentary Integumentary Comment(s): Palpable mass felt in right axilla area. - Neurologic Neurologic: Present: CNII-XII intact - Musculoskeletal Musculoskeletal: Present: gait normal, strength equal bilaterally - Psychiatric Psychiatric: Present: A&O x's 3, appropriate affect, intact judgment & insight - Allied health notes Allied health notes reviewed: nursing - Labs CBC & Chem 7: 05/31/17 02:33 05/30/17 06:00 Labs: Abnormal Lab Results - Last 24 Hours (Table) 05/30/17 05/30/17 05/30/17 Range/Units 10:45 10:45 11:16 Hgb (11.4-16.0) gm/dL Hct (34.0-46.0) % Lymphocytes # 0.8 L (1.0-4.8) k/uL APTT 21.3 L (22.0-30.0) sec ABG pH (7.35-7.45) ABG pO2 (83-108) mmHg ABG HCO3 (21-25) mmol/L ABG Total CO2 (19-24) mmol/L ABG O2 Saturation (94-97) % POC Glucose (mg/dL) 283 H (75-99) mg/dL 05/30/17 05/30/17 05/31/17 Range/Units 16:27 20:54 02:33 Hgb 10.9 L (11.4-16.0) gm/dL Hct 33.4 L (34.0-46.0) % Lymphocytes # (1.0-4.8) k/uL APTT (22.0-30.0) sec ABG pH (7.35-7.45) ABG pO2 (83-108) mmHg ABG HCO3 (21-25) mmol/L ABG Total CO2 (19-24) mmol/L ABG O2 Saturation (94-97) % POC Glucose (mg/dL) 315 H 285 H (75-99) mg/dL 05/31/17 05/31/17 05/31/17 Range/Units 02:33 05:38 06:02 Hgb (11.4-16.0) gm/dL Hct (34.0-46.0) % Lymphocytes # (1.0-4.8) k/uL APTT 30.2 H (22.0-30.0) sec ABG pH 7.46 H (7.35-7.45) ABG pO2 68 L (83-108) mmHg ABG HCO3 28 H (21-25) mmol/L ABG Total CO2 30 H (19-24) mmol/L ABG O2 Saturation 93.3 L (94-97) % POC Glucose (mg/dL) 200 H (75-99) mg/dL Microbiology - Last 24 Hours (Table) 05/29/17 15:14 Urine Culture - Final Urine,Voided - Imaging and Cardiology CT scan - chest: report reviewed, image reviewed Assessment and Plan (1) Hypertension Current Visit: Yes Status: Chronic Code(s): I10 - ESSENTIAL (PRIMARY) HYPERTENSION SNOMED Code(s): 31919514 (2) Hyperlipidemia Current Visit: Yes Status: Chronic Code(s): E78.5 - HYPERLIPIDEMIA, UNSPECIFIED SNOMED Code(s): 13441276 (3) Diabetes mellitus Current Visit: Yes Status: Chronic Code(s): E11.9 - TYPE 2 DIABETES MELLITUS WITHOUT COMPLICATIONS SNOMED Code(s): 55298903 (4) Previous myocardial infarction older than 8 weeks Current Visit: No Status: Resolved Code(s): I25.2 - OLD MYOCARDIAL INFARCTION SNOMED Code(s): 8288357 (5) History of heart artery stent Current Visit: Yes Status: Chronic Code(s): Z95.5 - PRESENCE OF CORONARY ANGIOPLASTY IMPLANT AND GRAFT SNOMED Code(s): 501828545 (6) Tobacco dependence in remission Current Visit: No Status: Resolved Code(s): F17.201 - NICOTINE DEPENDENCE, UNSPECIFIED, IN REMISSION SNOMED Code(s): 497042283 (7) Family history of premature coronary artery disease Current Visit: Yes Status: Chronic Code(s): Z82.49 - FAMILY HX OF ISCHEM HEART DIS AND OTH DIS OF THE CIRC SYS SNOMED Code(s): 976908524 (8) History of right breast cancer Current Visit: No Status: Resolved Code(s): Z85.3 - PERSONAL HISTORY OF MALIGNANT NEOPLASM OF BREAST SNOMED Code(s): 339861839 (9) Non-STEMI (non-ST elevated myocardial infarction) Current Visit: Yes Status: Acute Code(s): I21.4 - NON-ST ELEVATION (NSTEMI) MYOCARDIAL INFARCTION SNOMED Code(s): 064129663 (10) Morbid obesity with BMI of 40.0-44.9, adult Current Visit: Yes Status: Chronic Code(s): E66.01 - MORBID (SEVERE) OBESITY DUE TO EXCESS CALORIES; Z68.41 - BODY MASS INDEX (BMI) 40.0-44.9, ADULT SNOMED Code(s): 654514748 Plan: 1. Continue aspirin, statin, beta doretha, ARB, heparin drip. Hold Plavix. 2. Increase activity, ambulate as tolerated. 3. Encourage incentive spirometry use 10 times every hour. Room air arterial blood gases completed per pulmonology. 4. Reinforce preoperative teaching. 5. Will perform 5 m walk today. 6. Medical management per primary care service. 7. Fine-needle aspiration to be completed per interventional radiology on right axillary mass to make sure there is no return of her breast cancer, recommendation per pulmonology. 8. Plan is for coronary artery bypass graft surgery on June 05. This has been discussed with the patient and she is agreeable to surgery. 9. More recommendations to follow. Time with Patient: Greater than 30
[2017-05-31 11:59] LABS: Glucose,Whole Blood 236 mg/dL (75-99)
--- NOTE | 2017-05-31 14:46 | P.PN ---
Subjective Progress Note Date: 05/31/17 On today's evaluation of 05/30/2017 the patient is being seen in follow-up. The patient is resting comfortably in bed. Noted the patient was seen yesterday for a preoperative cardiac clearance. I had a lengthy discussion with her. The patient has morbid obesity, COPD and addition to severe obstructive sleep apnea. The patient with kidney and increased risk of developing postoperative pulmonary complications should thoracotomy and bypass surgery is done. Nevertheless, weighing the risks and benefits, the patient should be able to undertake these risks. For now the patient IV heparin. Her troponins came back positive at 0.038, 0.035 and 0.0 26. The patient's family chest pain for now. CV surgery is on the case. The patient is off Plavix. The patient is being considered for coronary artery bypass surgery next week. She is hemodynamically stable at this point. No cough sputum production or chest that is so wheezing. She tells me that her BiPAP machine was taken away from her as the patient did not demonstrate adequate data as she was hospitalized for pneumonia. Her pneumonia essentially cleared showed no parenchymal lung abnormalities. There is no mediastinal lymphadenopathy. There was a large right axillary lesion measuring 6.5 x 4.8 cm in size ejection of a cyst with overlying scar. Her was a small right-sided pleural effusion with some mild atelectatic changes and mild diffuse bronchial wall thickening without consolidation, and there is a l small hiatal hernia. A 2.4 cm left of the nodule was also seen which is a adenoma and the patient has compression deformity of the level of T11. On 05/31/2016 the patient is free of any chest pain. The patient remains on IV heparin. She'll be kept in the hospital awaiting her surgery. The patient had a blood gases on room air and she demonstrated pH of 7.46 with a pCO2 of 40 and pO2 of 68 and this was done on room air. The cyst in her right axilla was noted. Apparently this was drained on multiple occasions by general surgery and she tells that there is no evidence of any malignancy found on previous drainage procedures. I discussed the case with interventional radiology. We found that there was no need to repeated drainages long as the patient has been drained in the past and the structures of the cystic rather than malignant or solids. Objective - Vital Signs Vital signs: Vital Signs Temp 96.1 F L 05/31/17 08:00 Pulse 94 05/31/17 13:53 Resp 18 05/31/17 03:45 BP 115/58 05/31/17 12:00 Pulse Ox 96 05/31/17 12:00 Intake & Output 05/30/17 05/31/17 05/31/17 18:59 06:59 18:59 Intake Total 720 964.650 306.219 Output Total 1100 500 Balance -380 464.650 306.219 Weight 105.4 kg 105.3 kg Intake: Intake, IV Titration 464.650 186.219 Amount Heparin Sod,Pork in 0.45% 464.650 186.219 NaCl 25,000 unit In 0.45 % NaCl 1 500ml.bag @ 9.5 UNITS/KG/HR 20.02 mls/hr IV .Q24H [facility] Rx#: [id number] Oral 720 500 120 Output: Urine 1100 500 Other: Voiding Method Toilet # Voids 1 1 # Bowel Movements 0 - Exam Head exam was generally normal. There was no scleral icterus or corneal arcus. Mucous membranes were moist. Patient is obese. She is calm and comfortable and she is on acute distress.Neck was supple and without jugular venous distension, thyromegaly, or carotid bruits. Carotids were easily palpable bilaterally. There was no adenopathy. Neck is short and supple and the patient has significant crowding of posterior pharynx. Patient has a Mallampati class IV. There is no goiter or neck masses. Lungs sounds are diminished bilaterally especially in lung bases.Cardiac exam revealed the PMI to be normally situated and sized. The rhythm was regular and no extrasystoles were noted during several minutes of auscultation. The first and second heart sounds were normal and physiologic splitting of the second heart sound was noted. There were no murmurs, rubs, clicks, or gallops.Abdominal exam revealed normal bowel sounds. The abdomen was soft, non-tender, and without masses, organomegaly , or appreciable enlargement of the abdominal aorta. Patient is obese and CANNOT be accurately palpated. Extremities show adequate pulses in lower oximetry is bilaterally without any cyanosis or clubbing. Neurologically the patient is awake 3 and there is no focal neurological deficit. Psychiatric to the patient has appropriate mood and affect. - Labs CBC & Chem 7: 05/31/17 02:33 05/30/17 06:00 Labs: Abnormal Lab Results - Last 24 Hours (Table) 05/30/17 05/30/17 05/31/17 Range/Units 16:27 20:54 02:33 Hgb 10.9 L (11.4-16.0) gm/dL Hct 33.4 L (34.0-46.0) % APTT (22.0-30.0) sec ABG pH (7.35-7.45) ABG pO2 (83-108) mmHg ABG HCO3 (21-25) mmol/L ABG Total CO2 (19-24) mmol/L ABG O2 Saturation (94-97) % POC Glucose (mg/dL) 315 H 285 H (75-99) mg/dL 05/31/17 05/31/17 05/31/17 Range/Units 02:33 05:38 06:02 Hgb (11.4-16.0) gm/dL Hct (34.0-46.0) % APTT 30.2 H (22.0-30.0) sec ABG pH 7.46 H (7.35-7.45) ABG pO2 68 L (83-108) mmHg ABG HCO3 28 H (21-25) mmol/L ABG Total CO2 30 H (19-24) mmol/L ABG O2 Saturation 93.3 L (94-97) % POC Glucose (mg/dL) 200 H (75-99) mg/dL 05/31/17 05/31/17 Range/Units 10:51 11:56 Hgb (11.4-16.0) gm/dL Hct (34.0-46.0) % APTT 39.4 H (22.0-30.0) sec ABG pH (7.35-7.45) ABG pO2 (83-108) mmHg ABG HCO3 (21-25) mmol/L ABG Total CO2 (19-24) mmol/L ABG O2 Saturation (94-97) % POC Glucose (mg/dL) 236 H (75-99) mg/dL Microbiology - Last 24 Hours (Table) 05/29/17 15:14 Nasal Screen MRSA/MSSA ([facility]) - Final Nasal Swab 05/29/17 15:14 Urine Culture - Final Urine,Voided Assessment and Plan Plan: #1. Symptomatic multivessel coronary artery disease involving the proximal and mid LAD, RCA and diffuse disease in the circumflex coronary artery. The patient had a mild non-ST elevation myocardial infarction the patient had symptomatic coronary artery disease with episodic chest pain on outpatient basis. The patient will need coronary artery bypass surgery. She is currently on IV heparin. #2. COPD, with a baseline FEV1 of 76% of predicted on outpatient basis. A repeat Fernandes spastic duration done today in the hospital and the patient was found to have an FEV1 of 1.76 which is 77% of predicted and this is an equivalent number to our measurement in our office few months back. Her COPD is currently inactive in stable and the patient was recently treated for a pneumonia for which she is fully recovered. #3. Obstructive sleep apnea, with baseline AHI of 80, patient was prescribed BiPAP therapy at pressures 21/17 cm of water. Currently does not have a BiPAP unit at home, patient was taken back by the equipment [employer] when the patient is hospitalized for right lung pneumonia in March 2017. Otherwise the patient is compliant with the therapy #4. Obesity, #5. Coronary artery disease, with previous stenting #6. Recent hospitalization for right lung pneumonia at [facility] in March 2017. Patient had a thoracentesis for pleural effusion during that admission #7. Hyperlipidemia, hypertension #8. History of right breast cancer with lumpectomy/lymph node removal and radiation #9. GERD/reflux #10 a large cystic structure within the right axilla. Could be a recurrent breast cancer although this is a remote possibility. Plan Reviewed the blood gases and the patient has no significance hypercapnia with CO2 retention. PO2 68 on room air. COPD is currently inactive and stable. FEV1 is noted of 77% of predicted. No need to biopsy the right axillary cystic structure which is probably cystic and fluid-filled rather than solid a malignant. This has been drained in the past by her general surgeon. Patient is doing well. Continued IV heparin. History of any chest pain. Planning to undergo cardiac surgery at a later stage.
[2017-05-31 16:52] LABS: Glucose,Whole Blood 235 mg/dL (75-99)
[2017-05-31] MEDS: ATORVASTATIN 40 MG TAB PO SCH (20:01)
[2017-05-31] MEDS: MONTELUKAST 10 MG TAB PO SCH (20:01)
[2017-05-31 20:55] LABS: Glucose,Whole Blood 179 mg/dL (75-99)
[2017-06-01 02:59] LABS: Basophils # (A) 0.1 k/uL (0-0.2); Basophils % (A) 1 %; Eosinophils # (A) 0.2 k/uL (0-0.7); Eosinophils % (A) 3 %; HCT 34.9 % (34.0-46.0); HGB 11.2 gm/dL (11.4-16.0); Hypochromasia Slight; Lymphocytes # (A) 1.2 k/uL (1.0-4.8); Lymphocytes % (A) 17 %; MCH 27.7 pg (25.0-35.0); MCV 86.7 fL (80.0-100.0); Mean Platelet Volume 7.3; Monocytes # (A) 0.3 k/uL (0-1.0); Monocytes % (A) 5 %; Neutrophils # (A) 4.8 k/uL (1.3-7.7); Neutrophils % (A) 71 %; Platelet Count 197 k/uL (150-450); RBC 4.03 m/uL (3.80-5.40); RDW 14.5 % (11.5-15.5); WBC 6.8 k/uL (3.8-10.6)
[2017-06-01 06:13] LABS: Glucose,Whole Blood 229 mg/dL (75-99)
[2017-06-01] MEDS: INSULIN ASPART 100 UNIT/ML 1 ML 10 ML VIAL SQ SCH ×7 (06:34→21:30)
[2017-06-01] MEDS: HEPARIN SOD,PORK IN 0.45% NACL 25,000 UNIT in 0.45% NACL 1 500ML.BAG IV SCH ×2 (06:48→21:29)
[2017-06-01] MEDS: metFORMIN 500 MG TAB PO SCH ×2 (07:02→16:57)
[2017-06-01] MEDS: PANTOPRAZOLE 40 MG TABLET PO SCH (07:02)
[2017-06-01] MEDS: ASPIRIN 81 MG PO SCH (08:47)
[2017-06-01] MEDS: amLODIPine 5 MG TAB PO SCH (08:47)
[2017-06-01] MEDS: FUROSEMIDE 40 MG TAB PO SCH ×2 (08:48→21:30)
[2017-06-01] MEDS: cloNIDine HCL 0.1 MG TAB PO SCH (08:48)
[2017-06-01] MEDS: ISOSORBIDE MONONITRATE ER 60 MG TAB.ER.24H PO SCH (08:48)
[2017-06-01] MEDS: METOPROLOL TARTRATE 25 MG TAB PO SCH ×2 (08:49→21:30)
[2017-06-01] MEDS: IPRATROPIUM-ALBUTEROL 3 ML NEB INHALATION SCH ×3 (08:49→20:18)
[2017-06-01] MEDS: BUDESONIDE 0.5 MG/2 ML NEBU INHALATION SCH ×2 (08:49→20:18)
[2017-06-01] MEDS: LISINOPRIL 20 MG TAB PO SCH (08:49)
[2017-06-01] MEDS: INSULIN DETEMIR 100 UNIT/ML 10 ML VIAL SQ SCH (08:52)
[2017-06-01 09:36] LABS: Albumin 3.7 g/dL (3.5-5.0); Calcium 9.5 mg/dL (8.4-10.2); Magnesium 1.7 mg/dL (1.6-2.3); Potassium 3.4 mmol/L (3.5-5.1); Total Bilirubin 0.6 mg/dL (0.2-1.3); Total Protein 6.5 g/dL (6.3-8.2)
--- NOTE | 2017-06-01 10:13 | P.PN ---
Subjective Patient is doing well. She has no chest discomfort and IV heparin. She is sitting in a chair comfortably in no chest discomfort no dizziness no lightheadedness no breathing trouble On examination blood pressure is 135/85 mmHg pulse rate in the 80s and 90s afebrile 97.5F Breath sounds are clear no rhonchi no crackles Heart sounds S1-S2 normal no murmurs or gallops Abdomen soft nontender Impression Multivessel coronary artery disease on IV heparin awaiting CT surgery Continue heart rate medications preoperatively Objective - Vital Signs Vital signs: Vital Signs Temp 97.5 F L 06/01/17 03:00 Pulse 96 06/01/17 09:08 Resp 18 06/01/17 03:00 BP 135/85 06/01/17 03:00 Pulse Ox 97 06/01/17 03:00 Intake & Output 05/31/17 06/01/17 06/01/17 18:59 06:59 18:59 Intake Total 816.683 8877.217 360 Balance 506.619 0882.217 360 Weight 101.9 kg Intake: Intake, IV Titration 186.219 752.217 Amount Heparin Sod,Pork in 0.45% 186.219 752.217 NaCl 25,000 unit In 0.45 % NaCl 1 500ml.bag @ 9.5 UNITS/KG/HR 20.02 mls/hr IV .Q24H [facility] Rx#: [id number] Oral 295 600 360 Other: Voiding Method Toilet # Voids 2 2 # Bowel Movements 0 - Labs CBC & Chem 7: 06/01/17 02:29 06/01/17 02:33 Labs: Abnormal Lab Results - Last 24 Hours (Table) 05/31/17 05/31/17 05/31/17 Range/Units 10:51 11:56 16:48 Hgb (11.4-16.0) gm/dL APTT 39.4 H (22.0-30.0) sec Potassium (3.5-5.1) mmol/L Carbon Dioxide (22-30) mmol/L Glucose (74-99) mg/dL POC Glucose (mg/dL) 236 H 235 H (75-99) mg/dL 05/31/17 05/31/17 06/01/17 Range/Units 18:42 20:53 02:29 Hgb 11.2 L (11.4-16.0) gm/dL APTT 45.2 H (22.0-30.0) sec Potassium (3.5-5.1) mmol/L Carbon Dioxide (22-30) mmol/L Glucose (74-99) mg/dL POC Glucose (mg/dL) 179 H (75-99) mg/dL 06/01/17 06/01/17 06/01/17 Range/Units 02:29 02:33 06:09 Hgb (11.4-16.0) gm/dL APTT 80.6 H (22.0-30.0) sec Potassium 3.4 L (3.5-5.1) mmol/L Carbon Dioxide 21 L (22-30) mmol/L Glucose 239 H (74-99) mg/dL POC Glucose (mg/dL) 229 H (75-99) mg/dL Microbiology - Last 24 Hours (Table) 05/29/17 15:14 Nasal Screen MRSA/MSSA ([facility]) - Final Nasal Swab
--- NOTE | 2017-06-01 11:03 | PN ---
PROGRESS NOTE DATE OF SERVICE: 05/31/2017. PRESENTING COMPLAINT: Tired. INTERVAL HISTORY: This patient is seen by me yesterday on 05/31/2017. Patient admitted with acute non-Q- wave AK followed by cardiac cath that showed severe triple-vessel disease. Awaiting coronary bypass. Patient does have a CPAP machine but has not been using it since the last discharge, which was taken by the company. Otherwise, breathing is stable. Tolerating a diet. Sitting up on a chair. REVIEW OF SYSTEMS: Done for constitutional, cardiovascular, GI, pulmonary; relevant findings as above. CURRENT MEDICATIONS: Reviewed that include DuoNeb, Xanax, Norvasc, Arimidex, aspirin, Lipitor, Pulmicort, Catapres, Lasix, IV heparin, Levemir, Imdur, Zestril, Glucophage, Lopressor, Singulair, Protonix. PHYSICAL EXAMINATION: Temperature 96.1, pulse 96, respiration 15, blood pressure 172/79, repeat blood pressure 115/58, pulse ox 96% on room air. GENERAL APPEARANCE: Well built, BMI 39.8. Sitting up in a chair, a bit tired- appearing. EYES: Pupils equal, conjunctivae normal. HEENT: External nose, ear and oral cavity normal. NECK: JVD unable to assess. Mass not palpable. RESPIRATORY: Effort normal. LUNGS: Slightly decreased breath sounds. CARDIOVASCULAR: First and second sounds are normal, minimal edema. ABDOMEN: Soft, nontender. Liver and spleen not palpable. LYMPHATIC: No lymph node palpable in neck or axillae. PSYCHIATRY: Alert and oriented x3. Mood and affect was normal. INVESTIGATIONS: White count 5.7, hemoglobin 10.9, Accu-Cheks are noted. A 2D echo shows EF of 55%. Patient's chest CT on 05/29/2017 shows a large right axillary mass, bilateral nephrolithiasis and a 2.4 cm left adrenal nodule. ASSESSMENT: 1. Acute non-Q-wave myocardial infarction present on admission. 2. Coronary artery disease with a prior stent in 2010, now per cardiac cath showing triple-vessel coronary artery disease. 3. Obesity. 4. Intermittent asthma. 5. Diabetes mellitus type 2, chronically requiring insulin. 6. Gastroesophageal reflux disease. 7. Hyperlipidemia. 8. Obstructive sleep apnea, was using a CPAP until recently. 9. Right mastectomy with lumpectomy for breast cancer. 10.Right axillary lesion about 6.5 cm. 11.Bilateral nephrolithiasis, asymptomatic. 12.Left adrenal nodule 2.4 cm. 13.Hypertensive heart disease. 14.IV heparin monitoring. PLAN: Continue medication and treatment plan. Patient states that probably surgery scheduled for Sunday. Blood pressure medications will be adjusted accordingly. Care was discussed with the patient. MMODL / IJN: [id number] /
[2017-06-01 11:07] LABS: Glucose,Whole Blood 228 mg/dL (75-99)
[2017-06-01] MEDS ORDERED: MD COMMUNICATION TO PHARMACY 1 EACH MISC PO ONE ×4 (14:30)
--- NOTE | 2017-06-01 16:03 | P.PN ---
Subjective Progress Note Date: 06/01/17 Principal diagnosis: Multivessel coronary artery disease. Previous medical history of hypertension, hyperlipidemia, insulin dependent diabetes mellitus with current hemoglobin A1c 9.4%, previous myocardial infarction with stent placement to the RCA in 2010, obesity, obstructive sleep apnea, recent pneumonia in March 2017, previous tobacco dependence, right breast cancer with lumpectomy and radiation, and family history of premature coronary artery disease. The patient is currently sitting up to bedside chair. She has no acute distress. She reports that her last episode of chest pain was on Sunday, 09/2017. She denies any complaints of shortness of breath. Heparin drip infusing per protocol. Oxygen saturation is 96% on 2 L nasal cannula. She is achieving 8973-1877 mL on her incentive spirometry. Objective - Vital Signs Vital signs: Vital Signs Temp 97.4 F L 06/01/17 12:00 Pulse 92 06/01/17 14:23 Resp 18 06/01/17 12:00 BP 148/76 06/01/17 12:00 Pulse Ox 96 06/01/17 12:00 Intake & Output 05/31/17 06/01/17 06/01/17 18:59 06:59 18:59 Intake Total 499.247 6485.217 720 Output Total 1200 Balance 901.950 1407.217 -480 Weight 101.9 kg Intake: Intake, IV Titration 186.219 752.217 Amount Heparin Sod,Pork in 0.45% 186.219 752.217 NaCl 25,000 unit In 0.45 % NaCl 1 500ml.bag @ 9.5 UNITS/KG/HR 20.02 mls/hr IV .Q24H [facility] Rx#: [id number] Oral 295 600 720 Output: Urine 1200 Other: Voiding Method Toilet # Voids 2 2 # Bowel Movements 0 - Constitutional General appearance: Present: cooperative, no acute distress, obese - EENT ENT: Present: hearing grossly normal - Neck Details: Neck is supple, no JVD, no lymphadenopathy. - Respiratory Details: Lung sounds essentially clear throughout, few scattered crackles to her right lower lobe. Oxygen saturation is 96% on 2 L nasal cannula. She is achieving 8999-4713 ml on her incentive spirometry. - Cardiovascular Details: Regular rhythm and rate. S1 and S2 present, negative for S3, gallop or murmur. +2 edema to her left lower extremity +1 edema to her right lower extremity. Peripheral pulses palpable. Remote telemetry showing normal sinus rhythm heart rate 98. - Gastrointestinal Gastrointestinal Comment(s): Abdomen is soft, nontender and nondistended. Active bowel sounds all 4 abdominal quadrants. Passing flatus. Tolerating oral intake. - Genitourinary Genitourinary Comment(s): Adequate urine output. Voiding clear yellow urine. 1200 mL output in the last 8 hours. - Integumentary Integumentary Comment(s): Skin is warm, dry and pink. No clubbing or cyanosis. Slight redness to her bilateral lower extremities from her knees to her ankles. Palpable mass to her right axilla, nontender. - Neurologic Neurologic: Present: CNII-XII intact - Musculoskeletal Musculoskeletal: Present: gait normal, strength equal bilaterally - Psychiatric Psychiatric: Present: A&O x's 3, appropriate affect, intact judgment & insight - Allied health notes Allied health notes reviewed: nursing - Labs CBC & Chem 7: 06/01/17 02:29 06/01/17 02:33 Labs: Abnormal Lab Results - Last 24 Hours (Table) 05/31/17 05/31/17 05/31/17 Range/Units 16:48 18:42 20:53 Hgb (11.4-16.0) gm/dL APTT 45.2 H (22.0-30.0) sec Potassium (3.5-5.1) mmol/L Carbon Dioxide (22-30) mmol/L Glucose (74-99) mg/dL POC Glucose (mg/dL) 235 H 179 H (75-99) mg/dL 06/01/17 06/01/17 06/01/17 Range/Units 02:29 02:29 02:33 Hgb 11.2 L (11.4-16.0) gm/dL APTT 80.6 H (22.0-30.0) sec Potassium 3.4 L (3.5-5.1) mmol/L Carbon Dioxide 21 L (22-30) mmol/L Glucose 239 H (74-99) mg/dL POC Glucose (mg/dL) (75-99) mg/dL 06/01/17 06/01/17 06/01/17 Range/Units 06:09 10:17 11:05 Hgb (11.4-16.0) gm/dL APTT 56.2 H (22.0-30.0) sec Potassium (3.5-5.1) mmol/L Carbon Dioxide (22-30) mmol/L Glucose (74-99) mg/dL POC Glucose (mg/dL) 229 H 228 H (75-99) mg/dL Microbiology - Last 24 Hours (Table) 05/29/17 15:14 Nasal Screen MRSA/MSSA ([facility]) - Final Nasal Swab Assessment and Plan (1) History of right breast cancer Current Visit: Yes Status: Acute Code(s): Z85.3 - PERSONAL HISTORY OF MALIGNANT NEOPLASM OF BREAST SNOMED Code(s): 300910220 (2) Non-STEMI (non-ST elevated myocardial infarction) Current Visit: Yes Status: Acute Code(s): I21.4 - NON-ST ELEVATION (NSTEMI) MYOCARDIAL INFARCTION SNOMED Code(s): 762832940 (3) Diabetes mellitus Current Visit: Yes Status: Chronic Code(s): E11.9 - TYPE 2 DIABETES MELLITUS WITHOUT COMPLICATIONS SNOMED Code(s): 51629988 (4) Family history of premature coronary artery disease Current Visit: Yes Status: Chronic Code(s): Z82.49 - FAMILY HX OF ISCHEM HEART DIS AND OTH DIS OF THE CIRC SYS SNOMED Code(s): 117517436 (5) History of heart artery stent Current Visit: Yes Status: Chronic Code(s): Z95.5 - PRESENCE OF CORONARY ANGIOPLASTY IMPLANT AND GRAFT SNOMED Code(s): 029809225 (6) Hyperlipidemia Current Visit: Yes Status: Chronic Code(s): E78.5 - HYPERLIPIDEMIA, UNSPECIFIED SNOMED Code(s): 73460163 (7) Hypertension Current Visit: Yes Status: Chronic Code(s): I10 - ESSENTIAL (PRIMARY) HYPERTENSION SNOMED Code(s): 95465495 (8) Morbid obesity with BMI of 40.0-44.9, adult Current Visit: Yes Status: Chronic Code(s): E66.01 - MORBID (SEVERE) OBESITY DUE TO EXCESS CALORIES; Z68.41 - BODY MASS INDEX (BMI) 40.0-44.9, ADULT SNOMED Code(s): 777475965 Plan: 1. Continue aspirin, statin, metoprolol tartrate, ARB, and heparin drip per protocol. 2. Increase activity, ambulate as tolerated. Cardiac rehab consulted. 3. Encourage incentive spirometry use 10 times every hour. 4. Reinforce preoperative teaching. Preoperative testing in progress. 5. Continue to hold Plavix. 6. Medical management per primary care service. 7. DVT and GI prophylaxis. Knee-high DIVINE hose and sequential compression devices ordered. 8. The plan is for myocardial revascularization surgery on June 05 to be performed by Dr. Silver Castro. This has been discussed with the patient and she is agreeable to surgery. 9. Dr. Mari's recommendations for no need for biopsy to her right axillary cystic structure noted and appreciated. 10. More recommendations to follow as the patient progresses in her care. Time with Patient: Greater than 30
[2017-06-01 16:30] LABS: Glucose,Whole Blood 190 mg/dL (75-99)
[2017-06-01] MEDS: ANASTROZOLE 1 MG TAB PO SCH (16:57)
--- NOTE | 2017-06-01 18:10 | P.PN ---
Subjective Progress Note Date: 06/01/17 On today's evaluation of 05/30/2017 the patient is being seen in follow-up. The patient is resting comfortably in bed. Noted the patient was seen yesterday for a preoperative cardiac clearance. I had a lengthy discussion with her. The patient has morbid obesity, COPD and addition to severe obstructive sleep apnea. The patient with kidney and increased risk of developing postoperative pulmonary complications should thoracotomy and bypass surgery is done. Nevertheless, weighing the risks and benefits, the patient should be able to undertake these risks. For now the patient IV heparin. Her troponins came back positive at 0.038, 0.035 and 0.0 26. The patient's family chest pain for now. CV surgery is on the case. The patient is off Plavix. The patient is being considered for coronary artery bypass surgery next week. She is hemodynamically stable at this point. No cough sputum production or chest that is so wheezing. She tells me that her BiPAP machine was taken away from her as the patient did not demonstrate adequate data as she was hospitalized for pneumonia. Her pneumonia essentially cleared showed no parenchymal lung abnormalities. There is no mediastinal lymphadenopathy. There was a large right axillary lesion measuring 6.5 x 4.8 cm in size ejection of a cyst with overlying scar. Her was a small right-sided pleural effusion with some mild atelectatic changes and mild diffuse bronchial wall thickening without consolidation, and there is a l small hiatal hernia. A 2.4 cm left of the nodule was also seen which is a adenoma and the patient has compression deformity of the level of T11. On 05/31/2016 the patient is free of any chest pain. The patient remains on IV heparin. She'll be kept in the hospital awaiting her surgery. The patient had a blood gases on room air and she demonstrated pH of 7.46 with a pCO2 of 40 and pO2 of 68 and this was done on room air. The cyst in her right axilla was noted. Apparently this was drained on multiple occasions by general surgery and she tells that there is no evidence of any malignancy found on previous drainage procedures. I discussed the case with interventional radiology. We found that there was no need to repeated drainages long as the patient has been drained in the past and the structures of the cystic rather than malignant or solids. On 06/01/2016, the patient is stable and the patient has no new complaints. Simply of any chest pain. She is ambulating. 95% pulse ox on 3 selection by nasal cannula. She is afebrile. No cardiac arrhythmias. No other complaints otherwise for now. Tentative plan is to proceed with surgery next week. Objective - Vital Signs Vital signs: Vital Signs Temp 97.1 F L 06/01/17 16:00 Pulse 99 06/01/17 16:00 Resp 18 06/01/17 16:00 BP 137/80 06/01/17 16:00 Pulse Ox 95 06/01/17 16:00 Intake & Output 05/31/17 06/01/17 06/01/17 18:59 06:59 18:59 Intake Total 844.689 8483.217 720 Output Total 1200 Balance 022.734 8162.217 -480 Weight 101.9 kg Intake: Intake, IV Titration 186.219 752.217 Amount Heparin Sod,Pork in 0.45% 186.219 752.217 NaCl 25,000 unit In 0.45 % NaCl 1 500ml.bag @ 9.5 UNITS/KG/HR 20.02 mls/hr IV .Q24H [facility] Rx#: [id number] Oral 295 600 720 Output: Urine 1200 Other: Voiding Method Toilet # Voids 2 2 # Bowel Movements 0 - Exam Head exam was generally normal. There was no scleral icterus or corneal arcus. Mucous membranes were moist. Patient is obese. She is calm and comfortable and she is on acute distress.Neck was supple and without jugular venous distension, thyromegaly, or carotid bruits. Carotids were easily palpable bilaterally. There was no adenopathy. Neck is short and supple and the patient has significant crowding of posterior pharynx. Patient has a Mallampati class IV. There is no goiter or neck masses. Lungs sounds are diminished bilaterally especially in lung bases.Cardiac exam revealed the PMI to be normally situated and sized. The rhythm was regular and no extrasystoles were noted during several minutes of auscultation. The first and second heart sounds were normal and physiologic splitting of the second heart sound was noted. There were no murmurs, rubs, clicks, or gallops.Abdominal exam revealed normal bowel sounds. The abdomen was soft, non-tender, and without masses, organomegaly , or appreciable enlargement of the abdominal aorta. Patient is obese and CANNOT be accurately palpated. Extremities show adequate pulses in lower oximetry is bilaterally without any cyanosis or clubbing. Neurologically the patient is awake 3 and there is no focal neurological deficit. Psychiatric to the patient has appropriate mood and affect. - Labs CBC & Chem 7: 06/01/17 02:29 06/01/17 02:33 Labs: Abnormal Lab Results - Last 24 Hours (Table) 05/31/17 05/31/17 06/01/17 Range/Units 18:42 20:53 02:29 Hgb 11.2 L (11.4-16.0) gm/dL APTT 45.2 H (22.0-30.0) sec Potassium (3.5-5.1) mmol/L Carbon Dioxide (22-30) mmol/L Glucose (74-99) mg/dL POC Glucose (mg/dL) 179 H (75-99) mg/dL 06/01/17 06/01/17 06/01/17 Range/Units 02:29 02:33 06:09 Hgb (11.4-16.0) gm/dL APTT 80.6 H (22.0-30.0) sec Potassium 3.4 L (3.5-5.1) mmol/L Carbon Dioxide 21 L (22-30) mmol/L Glucose 239 H (74-99) mg/dL POC Glucose (mg/dL) 229 H (75-99) mg/dL 06/01/17 06/01/17 06/01/17 Range/Units 10:17 11:05 16:11 Hgb (11.4-16.0) gm/dL APTT 56.2 H (22.0-30.0) sec Potassium (3.5-5.1) mmol/L Carbon Dioxide (22-30) mmol/L Glucose (74-99) mg/dL POC Glucose (mg/dL) 228 H 190 H (75-99) mg/dL Microbiology - Last 24 Hours (Table) 05/29/17 15:14 Nasal Screen MRSA/MSSA ([facility]) - Final Nasal Swab Assessment and Plan Plan: #1. Symptomatic multivessel coronary artery disease involving the proximal and mid LAD, RCA and diffuse disease in the circumflex coronary artery. The patient had a mild non-ST elevation myocardial infarction the patient had symptomatic coronary artery disease with episodic chest pain on outpatient basis. The patient will need coronary artery bypass surgery. She is currently on IV heparin. #2. COPD, with a baseline FEV1 of 76% of predicted on outpatient basis. A repeat Fernandes spastic duration done today in the hospital and the patient was found to have an FEV1 of 1.76 which is 77% of predicted and this is an equivalent number to our measurement in our office few months back. Her COPD is currently inactive in stable and the patient was recently treated for a pneumonia for which she is fully recovered. #3. Obstructive sleep apnea, with baseline AHI of 80, patient was prescribed BiPAP therapy at pressures 21/17 cm of water. Currently does not have a BiPAP unit at home, patient was taken back by the [employer] when the patient is hospitalized for right lung pneumonia in March 2017. Otherwise the patient is compliant with the therapy #4. Obesity, #5. Coronary artery disease, with previous stenting #6. Recent hospitalization for right lung pneumonia at [facility] in March 2017. Patient had a thoracentesis for pleural effusion during that admission #7. Hyperlipidemia, hypertension #8. History of right breast cancer with lumpectomy/lymph node removal and radiation #9. GERD/reflux #10 a large cystic structure within the right axilla. Could be a recurrent breast cancer although this is a remote possibility. Plan Reviewed the blood gases and the patient has no significance hypercapnia with CO2 retention. PO2 68 on room air. COPD is currently inactive and stable. FEV1 is noted of 77% of predicted. No need to biopsy the right axillary cystic structure which is probably cystic and fluid-filled rather than solid a malignant. This has been drained in the past by her general surgeon. Patient is doing well. Continued IV heparin. History of any chest pain. On today's follow-up also, the plan is essentially the same. The patient remains stable and she is free of any chest pain. She is ambulating. No other significant events. Tentative plan is to proceed with surgery next week
[2017-06-01 20:48] LABS: Glucose,Whole Blood 145 mg/dL (75-99)
[2017-06-01] MEDS: ATORVASTATIN 40 MG TAB PO SCH (21:30)
[2017-06-01] MEDS: MONTELUKAST 10 MG TAB PO SCH (21:30)
[2017-06-01] MEDS: NITROGLYCERIN SL TABS 0.4 MG TAB SUBLINGUAL PRN ×2 (21:51→21:57)
[2017-06-01] MEDS ORDERED: DEXTROSE 5% IN WATER 50 ML BAG ONE (21:59)
[2017-06-01] MEDS ORDERED: SODIUM CHLORIDE 0.9% 250 ML BAG ONE (21:59)
[2017-06-01] MEDS ORDERED: EPINEPHrine 10 ML SYRINGE (0.1 MG/ML) ONE (21:59)
[2017-06-01] MEDS ORDERED: AMIODARONE 50 MG/ML 3 ML VIAL IV ONE (21:59)
[2017-06-01] MEDS ORDERED: SODIUM BICARB 8.4% 50 ML SYR (1 MEQ/ML) ONE (21:59)
[2017-06-01] MEDS ORDERED: NOREPINEPHRINE 1 MG/ML 4 ML VIAL IV ONE (21:59)
[2017-06-01] MEDS ORDERED: SODIUM CHLORIDE 0.9% 1,000 ML BAG ONE (21:59)
[2017-06-01 22:04] LABS: Glucose,Whole Blood 177 mg/dL (75-99)
[2017-06-01] MEDS ORDERED: PROPOFOL 100 ML IV ONE (22:25)
--- NOTE | 2017-06-01 23:04 | XR ---
EXAMINATION TYPE: XR chest 1V portable DATE OF EXAM: 06/01/2017 COMPARISON: 05/28/2017 HISTORY: Post intubation TECHNIQUE: Single frontal view of the chest is obtained. FINDINGS: NG tracheal tube is 2.4 cm from the megha. There is mild pulmonary congestion. There is s ome pleural thickening and infiltrate in the periphery of the right lower lobe and probably also the left lower lobe. Heart appears enlarged. IMPRESSION: Endotracheal tube could be pulled back 1 cm. There is decreased inspiration compared to last exam. There is probably mild heart failure. Nasogastric tube appears in good position.
[2017-06-01 23:24] LABS: Glucose,Whole Blood 259 mg/dL (75-99)
[2017-06-01] MEDS ORDERED: NALOXONE 0.4 MG/ML 1 ML VIAL IV PRN (23:26)
[2017-06-01] MEDS: LORazepam 2 MG/ML INJ IV PRN (23:43)
[2017-06-02] LABS: ABG Base Excess -0.5 mmol/L; ABG HCO3 24 mmol/L (21-25); ABG Oxygen Saturation 98.1 % (94-97); ABG PCO2 39 mmHg (35-45); ABG PO2 111 mmHg (83-108); ABG TCO2 26 mmol/L (19-24)
[2017-06-02] MEDS: MUPIROCIN 2% OINT 22 GM TUBE NASAL SCH ×2 (00:09→10:58)
[2017-06-02] MEDS: SODIUM CHLORIDE 0.9% 1,000 ML IV SCH ×3 (00:11→23:52)
[2017-06-02] MEDS: AMIODARONE 450 MG in DEXTROSE 5% IN WATER 250 ML IV SCH ×6 (00:11→23:43)
[2017-06-02] MEDS: INSULIN ASPART 100 UNIT/ML 1 ML 10 ML VIAL SQ SCH ×3 (00:12→09:00)
[2017-06-02 00:25] LABS: Basophils # (A) 0.1 k/uL (0-0.2); Basophils % (A) 1 %; Eosinophils # (A) 0.1 k/uL (0-0.7); Eosinophils % (A) 1 %; HCT 32.2 % (34.0-46.0); HGB 10.7 gm/dL (11.4-16.0); Lymphocytes # (A) 0.8 k/uL (1.0-4.8); Lymphocytes % (A) 7 %; MCH 28.5 pg (25.0-35.0); MCHC 33.1 g/dL (31.0-37.0); MCV 86.2 fL (80.0-100.0); Mean Platelet Volume 8.3; Monocytes # (A) 0.5 k/uL (0-1.0); Monocytes % (A) 5 %; Neutrophils # (A) 8.9 k/uL (1.3-7.7); Neutrophils % (A) 85 %; Platelet Count 193 k/uL (150-450); RBC 3.74 m/uL (3.80-5.40); RDW 14.8 % (11.5-15.5); WBC 10.6 k/uL (3.8-10.6)
[2017-06-02 00:39] LABS: Partial Thromboplastin Time 27.5 sec (22.0-30.0); Prothrombin Time 10.1 sec (9.0-12.0)
[2017-06-02 00:40] LABS: Albumin 3.5 g/dL (3.5-5.0); Calcium 9.6 mg/dL (8.4-10.2); Magnesium 1.5 mg/dL (1.6-2.3); Phosphorus 4.2 mg/dL (2.5-4.5); Potassium 3.5 mmol/L (3.5-5.1); Total Bilirubin 0.7 mg/dL (0.2-1.3); Total Protein 6.1 g/dL (6.3-8.2)
[2017-06-02] MEDS: PROPOFOL 1,000 MG in EMPTY BAG 1 BAG IV SCH ×3 (00:42→12:53)
[2017-06-02 00:52] LABS: Creatine Kinase MB 2.3 ng/mL (0.0-2.4)
[2017-06-02] MEDS ORDERED: Magnesium Replacement Protocol 1 EACH MISC MISCELLANE PRN ×2 (00:58→23:08)
[2017-06-02] MEDS ORDERED: Potassium Replacement Protocol 1 EACH MISC MISCELLANE PRN ×3 (00:59→23:08)
[2017-06-02] MEDS: LORazepam 2 MG/ML INJ IV PRN (01:18)
[2017-06-02 01:36] LABS: Troponin I 0.064 ng/mL (0.000-0.034)
[2017-06-02] MEDS: POTASSIUM CHLORIDE 10 MEQ in SODIUM CHLORIDE 0.9% 100 ML IV SCH ×2 (02:26→03:14)
[2017-06-02] MEDS: MAGNESIUM SULFATE-D5W PMX 1 GM in DEXTROSE/WATER 1 100ML.BAG IVPB SCH ×2 (02:26→03:14)
[2017-06-02 04:57] LABS: ABG HCO3 25 mmol/L (21-25); ABG Oxygen Saturation 98.2 % (94-97); ABG PCO2 41 mmHg (35-45); ABG PH 7.39 (7.35-7.45); ABG PO2 117 mmHg (83-108); ABG TCO2 26 mmol/L (19-24)
[2017-06-02] MEDS ORDERED: NITROGLYCERIN-D5W PMX 50 MG in DEXTROSE/WATER 1 250ML.BAG IV ONE (05:00)
[2017-06-02] MEDS ORDERED: INSULIN REGULAR 100 UNIT in SODIUM CHLORIDE 0.9% 100 ML IV ONE (05:00)
[2017-06-02] MEDS ORDERED: PHENYLEPHRINE 40 MG in SODIUM CHLORIDE 0.9% 250 ML IV ONE (05:00)
[2017-06-02] MEDS ORDERED: VANCOMYCIN 1,750 MG in SODIUM CHLORIDE 0.9% 250 ML IVPB ONE (05:00)
[2017-06-02] MEDS ORDERED: PAPAVERINE 360 MG in SODIUM CHLORIDE 0.9% 90 ML IV ONE (05:00)
[2017-06-02] MEDS ORDERED: METOPROLOL TARTRATE 12.5 MG TAB PO ONE (05:00)
[2017-06-02] MEDS ORDERED: TRANEXAMIC ACID 2,000 MG in SODIUM CHLORIDE 0.9% 180 ML IV ONE (05:00)
[2017-06-02] MEDS ORDERED: DEXTROSE 5% IN WATER 1,000 ML with POTASSIUM CHLORIDE 110 MEQ, MAGNESIUM SULFATE 16 MEQ... IV SCH ×5 (05:00)
[2017-06-02] MEDS ORDERED: PROTAMINE SULFATE 250 MG in EMPTY BAG 1 BAG IV ONE (05:00)
[2017-06-02] MEDS ORDERED: CLEVIDIPINE BUTYRATE 25 MG in EMPTY BAG 1 BAG IV ONE (05:00)
[2017-06-02] MEDS ORDERED: SODIUM BICARB 8.4% 50 ML SYR (1 MEQ/ML) IV ONE (05:00)
[2017-06-02] MEDS ORDERED: HEPARIN SODIUM,PORCINE 5,000 UNIT in SODIUM CHLORIDE 0.9% 500 ML IV ONE (05:00)
[2017-06-02] MEDS ORDERED: CALCIUM CHLORIDE 100 MG/ML 10 ML SYRINGE IVP ONE (05:00)
[2017-06-02] MEDS ORDERED: HEPARIN SODIUM 1,000 UN/ML (10ML VL) IV ONE (05:00)
[2017-06-02] MEDS ORDERED: NOREPINEPHRIN 4 MG-0.9% NS PMX 4 MG/250 ML ML IV ONE (05:00)
[2017-06-02] MEDS ORDERED: NITROGLYCERIN-D5W PMX 25 MG/250 ML BTL IV ONE (05:00)
[2017-06-02] MEDS ORDERED: PROTAMINE SULFATE 10 MG/ML 25 ML VIAL IV ONE (05:00)
[2017-06-02] MEDS ORDERED: ALBUMIN HUMAN 5% 500 ML in EMPTY BAG 1 BAG IVPB ONE ×6 (05:00)
[2017-06-02] MEDS ORDERED: ALBUMIN HUMAN 25% 50 ML in EMPTY BAG 1 BAG IVPB ONE (05:00)
[2017-06-02] MEDS ORDERED: MAGNESIUM SULFATE SYG 4.06 MEQ/ML SYRINGE IV ONE (05:00)
[2017-06-02] MEDS ORDERED: PHENYLEPHRINE-0.9% NACL SYG 1 MG/10 ML SYRINGE IV ONE ×4 (05:00)
[2017-06-02] MEDS ORDERED: ATORVASTATIN 10 MG TAB PO ONE (05:00)
[2017-06-02] MEDS ORDERED: PROPOFOL 1,000 MG in EMPTY BAG 1 BAG IV ONE (05:00)
[2017-06-02] MEDS ORDERED: MANNITOL 25% 12.5 GM/50 ML VIAL IV ONE ×2 (05:00)
[2017-06-02] MEDS ORDERED: ASPIRIN 325 MG TAB PO ONE (05:00)
[2017-06-02] MEDS ORDERED: CHLORHEXIDINE GLUCONATE 15 ML CUP MUCOUS MEM ONE (05:00)
[2017-06-02] MEDS ORDERED: DEXTROSE 5% IN WATER 1,000 ML with POTASSIUM CHLORIDE 25 MEQ, SODIUM CHLORIDE 4MEQ/ML V... IV SCH ×6 (05:00)
[2017-06-02] MEDS ORDERED: VANCOMYCIN 1,000 MG in SODIUM CHLORIDE 0.9% IRRIGATIO 1,000 ML IRRIGATION ONE (05:00)
--- NOTE | 2017-06-02 05:39 | PN ---
PROGRESS NOTE DATE OF SERVICE: 06/01/17. PRESENTING COMPLAINT: Tired. INTERVAL HISTORY: I saw this patient this afternoon. The patient is status post acute non-Q-wave FL followed by cardiac cath showing severe triple-vessel coronary artery disease. The patient awaiting a bypass. The patient's blood pressure medications were adjusted by Cardiology. Sitting up breathing is stable. Did tolerate a meal. REVIEW OF SYSTEMS: Done for constitutional, cardiovascular, GI, pulmonary; relevant findings as above. CURRENT MEDICATIONS: Reviewed. EXAMINATION: On examination, temperature 97.4, pulse 90, respiratory 18, blood pressure 140/76, pulse ox 96% on 3 L. GENERAL APPEARANCE: Sitting up in a chair, comfortable. EYES: Pupils equal. Conjunctivae normal. HEENT: External appearance of nose and ears normal. Oral cavity normal. NECK: JVD not raised. Mass not palpable. RESPIRATORY: Effort normal. Lungs, diminished breath sounds. CARDIOVASCULAR: First and second sounds normal. Edema is present. ABDOMEN: Soft, nontender. Liver and spleen not palpable. PSYCHIATRY: Alert and oriented x3. Mood and affect normal. INVESTIGATION: White count 6.8, hemoglobin 9.2, potassium 3.4, BUN 14, creatinine 0.85. ASSESSMENT: 1. Acute non-Q-wave myocardial infarction, present on admission. 2. Coronary artery disease with stent in 2010, now cardiac cath showing triple-vessel coronary artery disease. Patient is pending a cardiac surgery. 3. Obesity. 4. Intermittent asthma. 5. Diabetes mellitus type 2, chronically requiring insulin. 6. Gastroesophageal reflux disease. 7. Hyperlipidemia. 8. Obstructive sleep apnea, using CPAP until recently. 9. Right mastectomy with lumpectomy for breast cancer. 10.Right axillary lesion 6.5 cm. 11.Bilateral nephrolithiasis asymptomatic. 12.Left internal nodule 2.4 cm. 13.Hypertensive heart disease. 14.IV heparin monitoring. PLAN: Continue current medication and treatment plan. The patient looks like is being scheduled for surgery for Sunday. Care was discussed with the patient. Follow. MMODL / IJN: [id number] /
[2017-06-02 05:55] LABS: Basophils % (A) 1 %; Eosinophils # (A) 0.1 k/uL (0-0.7); Eosinophils % (A) 1 %; HCT 31.4 % (34.0-46.0); HGB 9.7 gm/dL (11.4-16.0); Hypochromasia Moderate; Lymphocytes % (A) 14 %; MCH 27.5 pg (25.0-35.0); MCV 88.9 fL (80.0-100.0); Mean Platelet Volume 8.2; Monocytes # (A) 0.3 k/uL (0-1.0); Monocytes % (A) 4 %; Neutrophils # (A) 5.6 k/uL (1.3-7.7); Neutrophils % (A) 78 %; Platelet Count 176 k/uL (150-450); RBC 3.53 m/uL (3.80-5.40); WBC 7.1 k/uL (3.8-10.6)
[2017-06-02 06:10] LABS: Calcium 9.2 mg/dL (8.4-10.2); Magnesium 2.2 mg/dL (1.6-2.3); Phosphorus 3.6 mg/dL (2.5-4.5); Potassium 3.6 mmol/L (3.5-5.1)
[2017-06-02] MEDS: IPRATROPIUM-ALBUTEROL 3 ML NEB INHALATION SCH ×4 (07:18→23:38)
[2017-06-02] MEDS: BUDESONIDE 0.5 MG/2 ML NEBU INHALATION SCH ×2 (07:18→19:48)
--- NOTE | 2017-06-02 07:48 | XR ---
EXAMINATION TYPE: XR chest 1V portable DATE OF EXAM: 06/02/2017 CLINICAL HISTORY: Difficulty breathing progress study. TECHNIQUE: Single AP portable semiupright view of the chest is obtained. COMPARISON: Chest x-ray from one day earlier. CT chest May 29, 2017. FINDINGS: An endotracheal tube and orogastric tube are stable in appearance. There is persistent car diomegaly with patchy bibasilar atelectasis and/or infiltrates and suspected small right pleural effu cristopher. Upper lungs are clear without pneumothorax. Osseous structures are intact. IMPRESSION: Cardiomegaly with patchy bibasilar atelectasis and/or infiltrates and suspected small rig ht pleural effusion not significantly changed from recent chest x-ray. Lung findings all new from rec ent chest CT however.
[2017-06-02] MEDS: POTASSIUM CHLORIDE 10 MEQ in SODIUM CHLORIDE 0.9% 100 ML IVPB SCH (08:22)
[2017-06-02] MEDS ORDERED: INSULIN DETEMIR 100 UNIT/ML 10 ML VIAL SQ SCH (09:00)
[2017-06-02] MEDS ORDERED: POTASSIUM BICARBONATE/CIT AC 20 MEQ TABLET.EFF NG-TUBE SCH (09:00)
[2017-06-02] MEDS ORDERED: PANTOPRAZOLE 40 MG/10 ML VIAL IVP SCH (09:00)
[2017-06-02] MEDS: metFORMIN 500 MG TAB PO SCH (09:18)
[2017-06-02] MEDS ORDERED: INSULIN REGULAR BOLUS (FROM DRIP BAG) IV PRN (09:19)
--- NOTE | 2017-06-02 09:20 | P.PN ---
Subjective Progress Note Date: 06/02/17 On today's evaluation of 05/30/2017 the patient is being seen in follow-up. The patient is resting comfortably in bed. Noted the patient was seen yesterday for a preoperative cardiac clearance. I had a lengthy discussion with her. The patient has morbid obesity, COPD and addition to severe obstructive sleep apnea. The patient with kidney and increased risk of developing postoperative pulmonary complications should thoracotomy and bypass surgery is done. Nevertheless, weighing the risks and benefits, the patient should be able to undertake these risks. For now the patient IV heparin. Her troponins came back positive at 0.038, 0.035 and 0.0 26. The patient's family chest pain for now. CV surgery is on the case. The patient is off Plavix. The patient is being considered for coronary artery bypass surgery next week. She is hemodynamically stable at this point. No cough sputum production or chest that is so wheezing. She tells me that her BiPAP machine was taken away from her as the patient did not demonstrate adequate data as she was hospitalized for pneumonia. Her pneumonia essentially cleared showed no parenchymal lung abnormalities. There is no mediastinal lymphadenopathy. There was a large right axillary lesion measuring 6.5 x 4.8 cm in size ejection of a cyst with overlying scar. Her was a small right-sided pleural effusion with some mild atelectatic changes and mild diffuse bronchial wall thickening without consolidation, and there is a l small hiatal hernia. A 2.4 cm left of the nodule was also seen which is a adenoma and the patient has compression deformity of the level of T11. On 05/31/2017 the patient is free of any chest pain. The patient remains on IV heparin. She'll be kept in the hospital awaiting her surgery. The patient had a blood gases on room air and she demonstrated pH of 7.46 with a pCO2 of 40 and pO2 of 68 and this was done on room air. The cyst in her right axilla was noted. Apparently this was drained on multiple occasions by general surgery and she tells that there is no evidence of any malignancy found on previous drainage procedures. I discussed the case with interventional radiology. We found that there was no need to repeated drainages long as the patient has been drained in the past and the structures of the cystic rather than malignant or solids. On 06/01/2017, the patient is stable and the patient has no new complaints. Simply of any chest pain. She is ambulating. 95% pulse ox on 3 selection by nasal cannula. She is afebrile. No cardiac arrhythmias. No other complaints otherwise for now. Tentative plan is to proceed with surgery next week. On 06/02/2017, the patient is being seen him follow-up. Currently she is interested intensive care unit intubated on a mechanical ventilator. The events that occurred overnight was noted. The patient acutely went into V. fib at around 10:00 and the patient received CPR and defibrillation. The exact downtime was less than 5 minutes. The patient received a total of 2 defibrillation 3 rounds of epinephrine. There was return of spontaneous circulation. The patient was intubated and brought to the intensive care unit. This morning she is sedated With Diprivan and currently Diprivan is running at 50 mics. I was told that the patient was able to follow commands following her cardiac arrest and neurologically seems to be intact despite his underlying cardiac arrest. The patient is on no pressors. Currently she is on assist control mode of ventilation at the rate of 16, tidal volume of 450, FiO2 of 60% and a PEEP of 5. The patient's pH is at 7.39 with a pCO2 of 41 and pO2 of 117. Chest x-ray shows adequate positioning of the ET tube. The patient also has a orogastric tube in place. She is nothing by mouth for now. She has adequate pulses in all 4 extremities. She is calm and comfortable. She is producing urine output in the order of 100 mL an hour. No further cardiac arrhythmias have been noted. The patient was given amiodarone bolus 10 mg and currently she is on a maintenance amiodarone of 0.5 mg/m. Rest of the blood pressure medications are on hold. Beta doretha was given this morning and the patient received Lopressor 25 mg orally. The case was discussed with cardiothoracic surgery. It seems that the patient will need emergent coronary artery bypass surgery and the patient will be taken to the operating room today. Objective - Vital Signs Vital signs: Vital Signs Temp 97.7 F 06/02/17 08:00 Pulse 69 06/02/17 09:00 Resp 20 06/02/17 09:00 BP 129/65 06/02/17 09:00 Pulse Ox 100 06/02/17 09:00 Intake & Output 06/01/17 06/02/17 06/02/17 18:59 06:59 18:59 Intake Total 942 1593.493 300.767 Output Total 1200 1695 325 Balance -258 -101.507 -24.233 Weight 108.3 kg Intake: IV 700 300 Sodium Chloride 0.9% 1, 700 300 000 ml @ 100 mls/hr IV . Q10H [facility] Rx#:[id number] Intake, IV Titration 893.493 0.767 Amount Amiodarone 450 mg In 188.87 Dextrose 5% in Water 250 ml @ 1 MG/MIN 33.33 mls/ hr IV .Q7H31M [facility] Rx#: [id number] Heparin Sod,Pork in 0.45% 604.623 NaCl 25,000 unit In 0.45 % NaCl 1 500ml.bag @ 9.5 UNITS/KG/HR 20.02 mls/hr IV .Q24H [facility] Rx#: [id number] Propofol 1,000 mg In 100 0.767 Empty Bag 1 bag @ Titrate IV .Q0M [facility] Rx#: [id number] Oral 942 Output: Urine 1200 1695 325 Other: Voiding Method Indwelling Catheter # Voids 2 - Exam Patient is obese, comfortable likely distress well sedated.Head exam was generally normal. There was no scleral icterus or corneal arcus. Mucous membranes were moist. My normal neck the patient has a short neck with crowding of posterior oropharynx. Orogastric and orotracheal tube are both in place. Lung sounds are diminished bilaterally otherwise clear. Cardiac exam revealed the PMI to be normally situated and sized. The rhythm was regular and no extrasystoles were noted during several minutes of auscultation. The first and second heart sounds were normal and physiologic splitting of the second heart sound was noted. There were no murmurs, rubs, clicks, or gallops.Abdominal exam revealed normal bowel sounds. The abdomen was soft, non- tender, and without masses, organomegaly, or appreciable enlargement of the abdominal aorta. Examination of the extremities revealed easily palpable radial , femoral and pedal pulses. There was no cyanosis, clubbing or edema. Neurologically, the patient is sedated and the patient is moving all 4 extremities to deep painful stimuli. Pupils are equal and reactive to light at around 4 mm.Examination of the skin revealed no evidence of significant rashes, suspicious appearing nevi or other concerning lesions. - Labs CBC & Chem 7: 06/02/17 05:27 06/02/17 05:27 Labs: Abnormal Lab Results - Last 24 Hours (Table) 06/01/17 06/01/17 06/01/17 Range/Units 02:33 10:17 11:05 RBC (3.80-5.40) m/uL Hgb (11.4-16.0) gm/dL Hct (34.0-46.0) % Neutrophils # (1.3-7.7) k/uL Lymphocytes # (1.0-4.8) k/uL APTT 56.2 H (22.0-30.0) sec ABG pO2 (83-108) mmHg ABG Total CO2 (19-24) mmol/L ABG O2 Saturation (94-97) % Potassium 3.4 L (3.5-5.1) mmol/L Carbon Dioxide 21 L (22-30) mmol/L Glucose 239 H (74-99) mg/dL POC Glucose (mg/dL) 228 H (75-99) mg/dL Magnesium (1.6-2.3) mg/dL AST (14-36) U/L ALT (9-52) U/L Troponin I (0.000-0.034) ng/mL Total Protein (6.3-8.2) g/dL 06/01/17 06/01/17 06/01/17 Range/Units 16:11 20:47 22:02 RBC (3.80-5.40) m/uL Hgb (11.4-16.0) gm/dL Hct (34.0-46.0) % Neutrophils # (1.3-7.7) k/uL Lymphocytes # (1.0-4.8) k/uL APTT (22.0-30.0) sec ABG pO2 (83-108) mmHg ABG Total CO2 (19-24) mmol/L ABG O2 Saturation (94-97) % Potassium (3.5-5.1) mmol/L Carbon Dioxide (22-30) mmol/L Glucose (74-99) mg/dL POC Glucose (mg/dL) 190 H 145 H 177 H (75-99) mg/dL Magnesium (1.6-2.3) mg/dL AST (14-36) U/L ALT (9-52) U/L Troponin I (0.000-0.034) ng/mL Total Protein (6.3-8.2) g/dL 06/01/17 06/01/17 06/01/17 Range/Units 23:21 23:54 23:54 RBC 3.74 L (3.80-5.40) m/uL Hgb 10.7 L (11.4-16.0) gm/dL Hct 32.2 L (34.0-46.0) % Neutrophils # 8.9 H (1.3-7.7) k/uL Lymphocytes # 0.8 L (1.0-4.8) k/uL APTT (22.0-30.0) sec ABG pO2 (83-108) mmHg ABG Total CO2 (19-24) mmol/L ABG O2 Saturation (94-97) % Potassium (3.5-5.1) mmol/L Carbon Dioxide (22-30) mmol/L Glucose 240 H (74-99) mg/dL POC Glucose (mg/dL) 259 H (75-99) mg/dL Magnesium 1.5 L (1.6-2.3) mg/dL AST 97 H (14-36) U/L ALT 82 H (9-52) U/L Troponin I (0.000-0.034) ng/mL Total Protein 6.1 L (6.3-8.2) g/dL 06/01/17 06/01/17 06/02/17 Range/Units 23:54 23:58 04:55 RBC (3.80-5.40) m/uL Hgb (11.4-16.0) gm/dL Hct (34.0-46.0) % Neutrophils # (1.3-7.7) k/uL Lymphocytes # (1.0-4.8) k/uL APTT (22.0-30.0) sec ABG pO2 111 H 117 H (83-108) mmHg ABG Total CO2 26 H 26 H (19-24) mmol/L ABG O2 Saturation 98.1 H 98.2 H (94-97) % Potassium (3.5-5.1) mmol/L Carbon Dioxide (22-30) mmol/L Glucose (74-99) mg/dL POC Glucose (mg/dL) (75-99) mg/dL Magnesium (1.6-2.3) mg/dL AST (14-36) U/L ALT (9-52) U/L Troponin I 0.064 H* (0.000-0.034) ng/mL Total Protein (6.3-8.2) g/dL 06/02/17 06/02/17 06/02/17 Range/Units 05:27 05:27 05:27 RBC 3.53 L (3.80-5.40) m/uL Hgb 9.7 L (11.4-16.0) gm/dL Hct 31.4 L (34.0-46.0) % Neutrophils # (1.3-7.7) k/uL Lymphocytes # (1.0-4.8) k/uL APTT 54.0 H (22.0-30.0) sec ABG pO2 (83-108) mmHg ABG Total CO2 (19-24) mmol/L ABG O2 Saturation (94-97) % Potassium (3.5-5.1) mmol/L Carbon Dioxide (22-30) mmol/L Glucose 244 H (74-99) mg/dL POC Glucose (mg/dL) (75-99) mg/dL Magnesium (1.6-2.3) mg/dL AST (14-36) U/L ALT (9-52) U/L Troponin I (0.000-0.034) ng/mL Total Protein (6.3-8.2) g/dL 06/02/17 Range/Units 05:27 RBC (3.80-5.40) m/uL Hgb (11.4-16.0) gm/dL Hct (34.0-46.0) % Neutrophils # (1.3-7.7) k/uL Lymphocytes # (1.0-4.8) k/uL APTT (22.0-30.0) sec ABG pO2 (83-108) mmHg ABG Total CO2 (19-24) mmol/L ABG O2 Saturation (94-97) % Potassium (3.5-5.1) mmol/L Carbon Dioxide (22-30) mmol/L Glucose (74-99) mg/dL POC Glucose (mg/dL) (75-99) mg/dL Magnesium (1.6-2.3) mg/dL AST (14-36) U/L ALT (9-52) U/L Troponin I 0.474 H* (0.000-0.034) ng/mL Total Protein (6.3-8.2) g/dL Assessment and Plan Plan: 1 acute cardiac arrest, acute v fibrillation, resuscitated successfully, defibrillated and the patient is currently intubated on a mechanical ventilator. The acute episode of V. fib was probably ischemic in nature. The patient did not have any significant elevation of troponin the EKG today is sinus with a bundle-branch block pattern, LBBB. 2 Symptomatic multivessel coronary artery disease involving the proximal and mid LAD, RCA and diffuse disease in the circumflex coronary artery. The patient had a mild non-ST elevation myocardial infarction the patient had symptomatic coronary artery disease with episodic chest pain on outpatient basis. The patient will need coronary artery bypass surgery. She is currently on IV heparin. 3 . COPD, with a baseline FEV1 of 76% of predicted on outpatient basis. A repeat Fernandes spastic duration done today in the hospital and the patient was found to have an FEV1 of 1.76 which is 77% of predicted and this is an equivalent number to our measurement in our office few months back. Her COPD is currently inactive in stable and the patient was recently treated for a pneumonia for which she is fully recovered. 4. Obstructive sleep apnea, with baseline AHI of 80, patient was prescribed BiPAP therapy at pressures 21/17 cm of water. Currently does not have a BiPAP unit at home, patient was taken back by the equipment [address] when the patient is hospitalized for right lung pneumonia in March 2017. Otherwise the patient is compliant with the therapy 5. Obesity, 6. Coronary artery disease, with previous stenting 7. Recent hospitalization for right lung pneumonia at [facility] in March 2017. Patient had a thoracentesis for pleural effusion during that admission 8. Hyperlipidemia, hypertension 9. History of right breast cancer with lumpectomy/lymph node removal and radiation 10. GERD/reflux 11 a large cystic structure within the right axilla. Could be a recurrent breast cancer although this is a remote possibility. 12 diabetes mellitus, poorly nitroglycerin drip. Plan The patient is hemodynamically stable. The patient is on no pressors. Prior to his cardiac event and ejection fraction was within normal limits. Her current rhythm is sinus with bundle-branch block pattern. We'll continue vent support. Will stop the Lantus insulin and we'll put the patient on insulin drip. Continue IV heparin. Continue IV amiodarone. The plan is to take this patient to cardiac bypass surgery within next 24 hours. She'll be monitored very closely. Keep nothing by mouth for now. Stop the Lasix for now. To do normal saline today to 100 mL an hour. Condition is critical. We'll continue to follow. Discussion was done with Dr. Oliveros from cardiology and with Dr. Lujan from CT surgery. Evaluation was done in 40 minutes. Time with Patient: Greater than 30
[2017-06-02] MEDS ORDERED: INSULIN REGULAR 100 UNIT in SODIUM CHLORIDE 0.9% 100 ML IV SCH (09:30)
[2017-06-02] MEDS: CHLORHEXIDINE GLUCONATE 15 ML CUP MUCOUS MEM SCH (09:47)
[2017-06-02] MEDS: ANASTROZOLE 1 MG TAB PO SCH (09:47)
[2017-06-02] MEDS: ASPIRIN 81 MG PO SCH (09:47)
[2017-06-02] MEDS: METOPROLOL TARTRATE 25 MG TAB PO SCH (09:48)
[2017-06-02] MEDS: FUROSEMIDE 40 MG TAB PO SCH (09:48)
[2017-06-02] MEDS: PANTOPRAZOLE 40 MG TABLET PO SCH (09:48)
[2017-06-02 11:02] LABS: Glucose,Whole Blood 205 mg/dL (75-99)
[2017-06-02 11:41] LABS: Glucose,Whole Blood 202 mg/dL (75-99)
[2017-06-02 12:21] LABS: Glucose,Whole Blood 192 mg/dL (75-99)
[2017-06-02] MEDS: CISATRACURIUM 2 MG/ML 5 ML VIAL IV ONE ×2 (12:53→13:28)
[2017-06-02 13:26] LABS: Glucose,Whole Blood 138 mg/dL (75-99)
[2017-06-02] MEDS ORDERED: CALCIUM CHLORIDE 100 MG/ML 10 ML SYRINGE ONE (14:40)
[2017-06-02] MEDS ORDERED: MIDAZOLAM 2 MG/2 ML VIAL ONE (14:40)
[2017-06-02] MEDS ORDERED: MAGNESIUM SULFATE 4 MEQ/ML 2 ML VIAL ONE (14:40)
[2017-06-02] MEDS ORDERED: SODIUM BICARB 8.4% 50 ML SYR (1 MEQ/ML) ONE (14:40)
[2017-06-02] MEDS ORDERED: MORPHINE SULFATE 10 MG/ML SYRINGE ONE (14:40)
[2017-06-02] MEDS ORDERED: ALBUMIN HUMAN 5% 250 ML BOTTLE IVPB ONE (14:40)
[2017-06-02] MEDS ORDERED: VECURONIUM 10 MG VIAL IV ONE (14:40)
[2017-06-02] MEDS ORDERED: fentaNYL (PF) 50 MCG/ML 2 ML AMP ONE (14:40)
[2017-06-02] MEDS ORDERED: HEPARIN SODIUM,PORCINE 10,000 UNIT/ML 1 ML VIAL ONE (14:40)
[2017-06-02] MEDS ORDERED: SODIUM CHLORIDE 0.9% 250 ML BAG ONE (14:40)
[2017-06-02] MEDS ORDERED: EPINEPHrine 10 ML SYRINGE (0.1 MG/ML) ONE (14:40)
[2017-06-02] MEDS ORDERED: SODIUM CHLORIDE 0.9% IRRIG 1,000 ML BTL IRRIGATION ONE (14:40)
[2017-06-02] MEDS ORDERED: fentaNYL (PF) 50 MCG/ML 50 ML VIAL ONE (14:40)
[2017-06-02] MEDS ORDERED: TRANEXAMIC ACID 1,000 MG/10 ML VIAL ONE (14:40)
[2017-06-02] MEDS ORDERED: ELECTROLYTE-R (PH 7.4) 1,000 ML IV.SOLN IV ONE (14:40)
[2017-06-02 15:35] LABS: Glucose,Whole Blood 156 mg/dL (75-99)
--- NOTE | 2017-06-02 15:53 | P.PN ---
Subjective Patient went into ventricular fibrillation yesterday he did she was intubated and transferred to the ICU after resuscitation. She has severe triple-vessel coronary artery disease and this occurred while on medications and IV heparin and the plan is to take her to the operating room today for coronary artery proper is grafting. On examination blood pressure is 112/68 Reason mercury pulse rate is in the 60s she is intubated Breath sounds are reduced bilaterally but no rhonchi no crackles Heart sounds soft Abdomen soft nontender Impression Ventricular fibrillation with an underlying ischemic substrate with triple- vessel coronary artery disease and borderline abnormal troponins after resuscitation Plan Revascularization of the coronary arteries and medical treatment Objective - Vital Signs Vital signs: Vital Signs Temp 98.1 F 06/02/17 12:00 Pulse 74 06/02/17 14:00 Resp 15 06/02/17 14:00 BP 145/71 06/02/17 14:00 Pulse Ox 96 06/02/17 14:00 Intake & Output 06/01/17 06/02/17 06/02/17 18:59 06:59 18:59 Intake Total 942 9826.457 8867.881 Output Total 1200 1695 725 Balance -258 -101.507 644.881 Weight 108.3 kg 108.3 kg Intake: IV 700 800 Sodium Chloride 0.9% 1, 700 800 000 ml @ 100 mls/hr IV . Q10H [facility] Rx#:[id number] Intake, IV Titration 893.493 569.881 Amount Amiodarone 450 mg In 188.87 56.922 Dextrose 5% in Water 250 ml @ 1 MG/MIN 33.33 mls/ hr IV .Q7H31M [facility] Rx#: [id number] Heparin Sod,Pork in 0.45% 604.623 395.377 NaCl 25,000 unit In 0.45 % NaCl 1 500ml.bag @ 9.5 UNITS/KG/HR 20.02 mls/hr IV .Q24H [facility] Rx#: [id number] Insulin Regular 100 unit 17.582 In Sodium Chloride 0.9% 100 ml @ Per Protocol IV .Q0M [facility] Rx#:[id number] Propofol 1,000 mg In 100 100.000 Empty Bag 1 bag @ Titrate IV .Q0M [facility] Rx#: [id number] Oral 942 Output: Urine 1200 1695 725 Other: Voiding Method Indwelling Catheter Indwelling Catheter # Voids 2 ABP, PAP, CO, CI - Last Documented Pulmonary Artery Pressure - Labs CBC & Chem 7: 06/02/17 05:27 06/02/17 11:09 Labs: Abnormal Lab Results - Last 24 Hours (Table) 06/01/17 06/01/17 06/01/17 Range/Units 16:11 20:47 22:02 RBC (3.80-5.40) m/uL Hgb (11.4-16.0) gm/dL Hct (34.0-46.0) % Neutrophils # (1.3-7.7) k/uL Lymphocytes # (1.0-4.8) k/uL APTT (22.0-30.0) sec ABG pO2 (83-108) mmHg ABG Total CO2 (19-24) mmol/L ABG O2 Saturation (94-97) % Glucose (74-99) mg/dL POC Glucose (mg/dL) 190 H 145 H 177 H (75-99) mg/dL Magnesium (1.6-2.3) mg/dL AST (14-36) U/L ALT (9-52) U/L Troponin I (0.000-0.034) ng/mL Total Protein (6.3-8.2) g/dL Crossmatch 06/01/17 06/01/17 06/01/17 Range/Units 23:21 23:54 23:54 RBC 3.74 L (3.80-5.40) m/uL Hgb 10.7 L (11.4-16.0) gm/dL Hct 32.2 L (34.0-46.0) % Neutrophils # 8.9 H (1.3-7.7) k/uL Lymphocytes # 0.8 L (1.0-4.8) k/uL APTT (22.0-30.0) sec ABG pO2 (83-108) mmHg ABG Total CO2 (19-24) mmol/L ABG O2 Saturation (94-97) % Glucose 240 H (74-99) mg/dL POC Glucose (mg/dL) 259 H (75-99) mg/dL Magnesium 1.5 L (1.6-2.3) mg/dL AST 97 H (14-36) U/L ALT 82 H (9-52) U/L Troponin I (0.000-0.034) ng/mL Total Protein 6.1 L (6.3-8.2) g/dL Crossmatch 06/01/17 06/01/17 06/02/17 Range/Units 23:54 23:58 04:55 RBC (3.80-5.40) m/uL Hgb (11.4-16.0) gm/dL Hct (34.0-46.0) % Neutrophils # (1.3-7.7) k/uL Lymphocytes # (1.0-4.8) k/uL APTT (22.0-30.0) sec ABG pO2 111 H 117 H (83-108) mmHg ABG Total CO2 26 H 26 H (19-24) mmol/L ABG O2 Saturation 98.1 H 98.2 H (94-97) % Glucose (74-99) mg/dL POC Glucose (mg/dL) (75-99) mg/dL Magnesium (1.6-2.3) mg/dL AST (14-36) U/L ALT (9-52) U/L Troponin I 0.064 H* (0.000-0.034) ng/mL Total Protein (6.3-8.2) g/dL Crossmatch 06/02/17 06/02/17 06/02/17 Range/Units 05:27 05:27 05:27 RBC 3.53 L (3.80-5.40) m/uL Hgb 9.7 L (11.4-16.0) gm/dL Hct 31.4 L (34.0-46.0) % Neutrophils # (1.3-7.7) k/uL Lymphocytes # (1.0-4.8) k/uL APTT 54.0 H (22.0-30.0) sec ABG pO2 (83-108) mmHg ABG Total CO2 (19-24) mmol/L ABG O2 Saturation (94-97) % Glucose 244 H (74-99) mg/dL POC Glucose (mg/dL) (75-99) mg/dL Magnesium (1.6-2.3) mg/dL AST (14-36) U/L ALT (9-52) U/L Troponin I (0.000-0.034) ng/mL Total Protein (6.3-8.2) g/dL Crossmatch 06/02/17 06/02/17 06/02/17 Range/Units 05:27 11:00 11:09 RBC (3.80-5.40) m/uL Hgb (11.4-16.0) gm/dL Hct (34.0-46.0) % Neutrophils # (1.3-7.7) k/uL Lymphocytes # (1.0-4.8) k/uL APTT (22.0-30.0) sec ABG pO2 (83-108) mmHg ABG Total CO2 (19-24) mmol/L ABG O2 Saturation (94-97) % Glucose (74-99) mg/dL POC Glucose (mg/dL) 205 H (75-99) mg/dL Magnesium (1.6-2.3) mg/dL AST (14-36) U/L ALT (9-52) U/L Troponin I 0.474 H* (0.000-0.034) ng/mL Total Protein (6.3-8.2) g/dL Crossmatch See Detail 06/02/17 06/02/17 06/02/17 Range/Units 11:40 12:20 13:25 RBC (3.80-5.40) m/uL Hgb (11.4-16.0) gm/dL Hct (34.0-46.0) % Neutrophils # (1.3-7.7) k/uL Lymphocytes # (1.0-4.8) k/uL APTT (22.0-30.0) sec ABG pO2 (83-108) mmHg ABG Total CO2 (19-24) mmol/L ABG O2 Saturation (94-97) % Glucose (74-99) mg/dL POC Glucose (mg/dL) 202 H 192 H 138 H (75-99) mg/dL Magnesium (1.6-2.3) mg/dL AST (14-36) U/L ALT (9-52) U/L Troponin I (0.000-0.034) ng/mL Total Protein (6.3-8.2) g/dL Crossmatch 06/02/17 Range/Units 15:22 RBC (3.80-5.40) m/uL Hgb (11.4-16.0) gm/dL Hct (34.0-46.0) % Neutrophils # (1.3-7.7) k/uL Lymphocytes # (1.0-4.8) k/uL APTT (22.0-30.0) sec ABG pO2 (83-108) mmHg ABG Total CO2 (19-24) mmol/L ABG O2 Saturation (94-97) % Glucose (74-99) mg/dL POC Glucose (mg/dL) 156 H (75-99) mg/dL Magnesium (1.6-2.3) mg/dL AST (14-36) U/L ALT (9-52) U/L Troponin I (0.000-0.034) ng/mL Total Protein (6.3-8.2) g/dL Crossmatch Microbiology - Last 24 Hours (Table) 06/02/17 01:03 Sputum Culture - Preliminary Sputum
--- NOTE | 2017-06-02 15:55 | PN ---
PROGRESS NOTE DATE OF SERVICE: 06/02/2017 PRESENTING COMPLAINT: Cardiac arrest. INTERVAL HISTORY: I was called this morning. The patient around 10:30 last night had a cardiac arrest, it seems. The patient went into ventricular fibrillation, was shocked and given epi and then transferred to the ICU, intubated. Currently on the ventilator, FiO2 of 60 and PEEP of 5. Patient was given IV amiodarone drip, IV clevidipine and insulin drip. Patient is intubated. PHYSICAL EXAMINATION: Lying in bed, intubated. EYES: Pupils equal. Conjunctivae normal. HEENT: External appearance of nose and ears normal. Oral cavity with endotracheal tube. NECK: JVD unable to assess. RESPIRATORY: Effort normal. LUNGS: Decreased breath sounds. CARDIOVASCULAR: First and second sounds normal. Edema present. ABDOMEN: Soft, nontender. Liver and spleen not palpable. PSYCHIATRY: Unable to assess. NEUROLOGICAL: Pupils are equal. INVESTIGATIONS: White count 7.1, hemoglobin 9.7, potassium 3.6. Accu-Cheks noted. Troponin 0.4, 0.474. ASSESSMENT: 1. Status post cardiac arrest in a patient with triple-vessel coronary artery disease. Patient was pending coronary bypass. 2. Acute non-Q-wave myocardial infarction, present on admission. 3. Coronary artery disease with prior stent in 2010. 4. Obesity. 5. Intermittent asthma. 6. Diabetes mellitus, type 2, chronically requiring insulin, currently on insulin drip. 7. Gastroesophageal reflux disease. 8. Hyperlipidemia. 9. Obstructive sleep apnea, using CPAP until recently. 10.Right mastectomy with lumpectomy for breast cancer. 11.Right axillary lesion, being followed as an outpatient. 12.Bilateral nephrolithiasis, asymptomatic. 13.Left adrenal nodule 2.4 cm. 14.Hypertensive heart disease. 15.Acute respiratory failure with ventilator assistance. PLAN: Continue supportive care. Patient is going for emergent coronary bypass today. Patient being followed by Cardiology, Pulmonary, Cardiothoracic. Prognosis guarded. Currently no family is present. MMODL / IJN: [id number] /
[2017-06-02 15:58] LABS: Potassium 4.1 mmol/L (3.5-5.1)
[2017-06-02 17:00] LABS: Glucose,Whole Blood 185 mg/dL (75-99)
[2017-06-02 23:00] LABS: Glucose,Whole Blood 220 mg/dL (75-99)
[2017-06-02] MEDS ORDERED: Phosphorus Replacement Protoco 1 EACH MISC MISCELLANE PRN (23:08)
[2017-06-02] MEDS ORDERED: NOREPINEPHRINE 4 MG in SODIUM CHLORIDE 0.9% 250 ML IV SCH (23:08)
[2017-06-02] MEDS ORDERED: ONDANSETRON 4 MG/2 ML VIAL IVP PRN (23:08)
[2017-06-02] MEDS ORDERED: BENZOCAINE/MENTHOL LOZENG 1 EACH LOZENGE MUCOUS MEM PRN (23:08)
[2017-06-02] MEDS ORDERED: VANCOMYCIN IV PER PHARMACY 1 EACH MISC MISCELLANE PRN (23:08)
[2017-06-02] MEDS ORDERED: PROPOFOL 1,000 MG in EMPTY BAG 1 BAG IV SCH (23:08)
[2017-06-02] MEDS ORDERED: EPINEPHrine 2 MG in DEXTROSE 5% IN WATER 250 ML IV SCH ×2 (23:08)
[2017-06-02] MEDS ORDERED: NITROGLYCERIN-D5W PMX 50 MG in DEXTROSE/WATER 1 250ML.BAG IV SCH (23:08)
[2017-06-02] MEDS ORDERED: MORPHINE SULFATE 2 MG/ML SYRINGE IVP PRN (23:08)
[2017-06-02] MEDS ORDERED: ALBUMIN HUMAN 5% 250 ML in EMPTY BAG 1 BAG IVPB PRN (23:08)
[2017-06-02] MEDS ORDERED: CALCIUM GLUCONATE 2,000 MG in SODIUM CHLORIDE 0.9% 100 ML IVPB PRN (23:08)
[2017-06-02 23:18] LABS: Glucose,Whole Blood 219 mg/dL (75-99)
[2017-06-02 23:21] LABS: Ionized Calcium 5.3 mg/dL (4.5-5.3)
[2017-06-02 23:23] LABS: Basophils % (A) 0 %; Eosinophils % (A) 0 %; HCT 26.6 % (34.0-46.0); HGB 8.3 gm/dL (11.4-16.0); Hypochromasia Moderate; Lymphocytes # (A) 0.9 k/uL (1.0-4.8); Lymphocytes % (A) 10 %; MCH 27.7 pg (25.0-35.0); MCHC 31.1 g/dL (31.0-37.0); Mean Platelet Volume 8.7; Monocytes # (A) 0.4 k/uL (0-1.0); Monocytes % (A) 4 %; Neutrophils # (A) 7.8 k/uL (1.3-7.7); Neutrophils % (A) 84 %; Platelet Count 107 k/uL (150-450); RBC 2.99 m/uL (3.80-5.40); RDW 15.2 % (11.5-15.5); WBC 9.2 k/uL (3.8-10.6)
--- NOTE | 2017-06-02 23:23 | XR ---
EXAMINATION TYPE: XR chest 1V portable DATE OF EXAM: 06/02/2017 COMPARISON: Today HISTORY: Postop cardiac surgery TECHNIQUE: Single frontal view of the chest is obtained. FINDINGS: Endotracheal tube appears in very good position. There is some pulmonary vascular congesti on. There is blunting of the costophrenic angles and more on the right side. There is pleural thicken ing on the right lateral chest wall. There is a left chest tube. I see no pneumothorax. There is righ t central venous catheter with the tip in the main pulmonary artery. There is nasogastric tube noted. IMPRESSION: There is evidence of heart failure. Pleural effusions appear slightly increased on the r ight side compared to the exam this morning at 7:00 AM. Pulmonary congestion is probably increased.
[2017-06-02 23:29] LABS: INR 1.5 (<1.2); Partial Thromboplastin Time 61.3 sec (22.0-30.0); Prothrombin Time 14.3 sec (9.0-12.0)
--- NOTE | 2017-06-02 23:31 | OP ---
OPERATIVE REPORT DATE OF SURGERY: 06/02/2017. SURGEON: Dr. Fabi Lujan. TAB BUILDER: Don Pulido and [employer] Perales. PREOPERATIVE DIAGNOSES:: 1. Triple-vessel coronary artery disease. 2. Non ST elevation myocardial infarction. 3. Status post prior stenting to right coronary artery. 4. Preserved left ventricular function. 5. Mild mitral valve regurgitation. 6. Status post ventricular fibrillation arrest. 7. Hypertension. 8. Hyperlipidemia. 9. Diabetes mellitus. 10.Obesity,. 11.Obstructive sleep apnea. 12.Chronic obstructive pulmonary disease. POSTOPERATIVE DIAGNOSES:: 1. Triple-vessel coronary artery disease. 2. Non ST elevation myocardial infarction. 3. Status post prior stenting to right coronary artery. 4. Preserved left ventricular function. 5. Mild mitral valve regurgitation. 6. Status post ventricular fibrillation arrest. 7. Hypertension. 8. Hyperlipidemia. 9. Diabetes mellitus. 10.Obesity,. 11.Obstructive sleep apnea. 12.Chronic obstructive pulmonary disease. 13.Diffuse severe calcific coronary artery disease. OPERATION:: 1. Coronary artery bypass grafting x4 using the left internal mammary artery to the left anterior descending artery, reverse saphenous vein graft from the aorta to the distal posterior descending artery, reverse saphenous vein graft from the aorta to the ramus intermedius artery, reverse saphenous vein graft from the aorta to the 2nd diagonal artery. 2. Endoscopic harvesting of the right greater saphenous vein. 3. Intraoperative transesophageal echocardiogram and epiaortic scanning. 4. Intraoperative graft flow measurements using the Reissuedstim system. ESTIMATED BLOOD LOSS:: SPECIMEN TAKEN:: INDICATION FOR THE PROCEDURE: The patient is a 66-year-old lady who initially presented to [facility] with episodes of chest pain and shortness of breath. She had mild elevation of her enzymes. This lady had in 2010 RCA stenting. The patient was transferred to [facility]. Workup included a cardiac catheterization that showed severe calcific coronary artery disease involving the right coronary artery, the mid and distal left anterior descending artery and the proximal aspect of the ramus intermedius artery. 2D echo showed preserved left ventricular function and mild mitral valve regurgitation. The patient was on chronic Plavix and we had elected to wait 5 days before proceeding with surgery. However, around 16 hours ago, the patient sustained ventricular fibrillatory arrest on the floor and she was adequately and successfully resuscitated. She was transferred to the ICU and was intubated. However, she woke up and neurologically, her Chacorta coma score was 11t. She had a mild elevation of her troponin. Kidney function remained unchanged. Discussion followed with Cardiology and Pulmonology and decision was made to proceed with surgery on an emergent basis at this point. To mention, the patient was on IV heparin throughout. The increased STS risk in view of the lady's comorbidities and presentation were discussed with the family, who understood them and gave the consent for us to proceed. DESCRIPTION OF THE PROCEDURE:: The patient had a [place]-Bouchra catheter and a left radial arterial line placed in the ICU; however, the [place] was not correctly in the pulmonary artery. She was brought to the operating room, where general anesthesia was administered. As mentioned, the patient was already intubated. She received 1.75 g of vancomycin intravenously. The Lea catheter was changed. The chest, abdomen and both lower extremities were prepped and draped using ChloraPrep. Ioban was used to cover the skin. Transesophageal echocardiogram showed preserved left ventricular function, mild right ventricular dysfunction and [id number] mitral valve regurgitation that was central. Midline sternotomy was performed. The patient had a very thick subcutaneous fat layer. The bone was osteopenic. The left tank sternum was elevated and the left internal mammary artery was harvested in a semi-skeletonized fashion. The left pleura was intentionally opened in this process and was drained with a 28-[place] chest tube. In the same setting, the right greater saphenous vein was harvested endoscopically from groin to above the ankle level after administration of 2500 units of heparin. The branches were tied. The leg incisions were closed over the drain. Mediastinal fat was transected between 2 ties and epiaortic scanning revealed no protruding atheroma in the ascending aorta. Pericardium was opened in an inverted T- fashion and a pericardial cradle was created. Findings included an elongated aorta pushing the heart inferiorly and to the left side. However, it was not dilated. It was soft. The coronary disease was diffuse and very hard, calcific in nature. After placement of respective pledgeted pursestring and after systemic heparinization, aortic cannulation with a 21-[place] soft flow cannula, right atrial appendage cannulation with a dual-stage venous cannula was performed. Antegrade as well as retrograde cardioplegia catheter were placed. The mammary artery was double clipped distally and transected, had an excellent pulsatile flow in it and was around 1.5-mm diameter. The vein was prepared and was around 4 mm in diameter, of good quality. Cardiopulmonary bypass was initiated and the patient's temperature was allowed to drift down to 34 degrees Celsius. With the heart empty, we looked at the target. Even with the heart empty, it was hard to get to the left-sided targets. The LAD was intramyocardial; however in view of the calcific disease, we could find it and I found it distally beyond a calcific plaque where it would be the site for bypass. The 2nd diagonal artery was also calcified in nature; however, there was one soft spot that we elected to bypass. The ramus intermedius artery was also diffusely calcified and went intramyocardial very proximally. It was found intramyocardial and even the intramyocardial aspect had an eccentric calcified plaque in it. The inferior wall was exposed and the posterior descending artery was heavily calcified up to mid aspect and the distal aspect was pliable and that was bypassed. During 111 minutes of aortic clamping, myocardial protection was achieved with initial dose of 600 mL of antegrade cold cardioplegia was adequate arrest at around 200 mL followed by 400 mL of retrograde cold blood cardioplegia. All subsequent doses were given retrograde at 15-20 minutes intervals. The 1st distal anastomosis was between a segment of reverse saphenous vein graft and the distal posterior descending artery which was around 1.5 mm in diameter using Prolene 7-0 in continuous fashion. The 2nd distal anastomosis was between another segment of reverse saphenous vein graft and the intramyocardial ramus intermedius artery, which was around 2 mm in diameter, with an eccentric calcific plaque using Prolene 7-0 in continuous fashion. The 3rd distal anastomosis was between the 2nd diagonal artery, which was around 1.5 mm in diameter, in a soft spot between 2 calcified plaques and another segment of vein graft. The 4th and last distal anastomosis was between the left internal mammary artery and distal left anterior descending artery after a calcified in an area where it was soft around, 1.5 mm in diameter using Prolene 7-0 in a continuous fashion. Satisfied with the distal anastomosis, rewarming was started and the 3 proximal anastomosis were performed on the ascending aorta as we punched out 3 buttons of 5 mm each. Warm blood retrograde was given as we performed those proximal anastomoses. The patient was given lidocaine and magnesium and the aorta was unclamped. I placed 2 monopolar atrial pacing wires to the right atrial appendage and 1 bipolar ventricular pace wire via the inferior aspect of the right ventricle. The patient required AV pacing, as she had conduction issues. After 30 minutes of re-perfusion, we weaned off cardiopulmonary bypass after loading with Primacor and the patient on Levophed. The PA pressure was around 35/20 and the mean arterial pressure was around 60. We had trouble with the brachial arterial line and for that reason, I inserted a left femoral small sheath for arterial pressure tracing. It took a while to correct the patient's severe acid-balance disturbance that developed after unclamping and coming off bypass with the initial metabolic acidosis as well as respiratory acidosis and hypoxia. She was given steroids and we increased her PEEP and she was given several amps of bicarbonate and calcium. We added also low-dose epinephrine. The YA had showed throughout a better LV function than an RV function. Right ventricular function improved when corrected most of the metabolic disturbances. Eventually, the cardiac index was around 2.6. With that, a full dose protamine was given. Decannulation followed. The venous cannulation site was reinforced with a running Prolene 4-0. The patient's chest cavity was small to begin with barely any room for her heart and her lungs. The 32-[place] substernal chest tube was placed and we interposed Fibrillar and Surgicel between the tube and the acute margin of the right ventricle. There was no pericardium or pericardial fat to speak of to close over the heart. After ensuring adequate hemostasis and hemodynamics and after correct sponge, instrument and needle count, the sternum was approximated using 5 figure-of- eight [place] cable after interposing Fibrillar between the sternal edges. Thorough irrigation with vancomycin followed. The rest of the closure proceeded in layers. Skin glue was applied. The patient received 2 units of packed red blood cells and 500 mL of Cell Saver blood. Graft flow measurements in the OR using the Reissuedstim system showed a flow of 47 mL/minute in the vein going to the PDA, 55 mm/minute in the vein going to the diagonal artery and 73 mL/minute in the vein going to the ramus intermedius artery. The mammary artery was initially checked and was patent; however, after we came off bypass, it was very hard to get it to measure flow. MMODL / IJN: [id number] / JESSICA
[2017-06-02 23:32] LABS: Albumin 3.2 g/dL (3.5-5.0); Magnesium 2.3 mg/dL (1.6-2.3); Phosphorus 3.1 mg/dL (2.5-4.5); Potassium 3.7 mmol/L (3.5-5.1); Total Bilirubin 1.9 mg/dL (0.2-1.3); Total Protein 4.7 g/dL (6.3-8.2)
[2017-06-02] MEDS: INSULIN REGULAR 100 UNIT in SODIUM CHLORIDE 0.9% 100 ML IV SCH (23:48)
[2017-06-02 23:49] LABS: Glucose,Whole Blood 201 mg/dL (75-99)
[2017-06-02] MEDS: LACTATED RINGERS 1,000 ML IV SCH (23:53)
[2017-06-02 23:57] LABS: ABG Base Excess -2.5 mmol/L; ABG HCO3 24 mmol/L (21-25); ABG PCO2 54 mmHg (35-45); ABG PH 7.27 (7.35-7.45); ABG PO2 74 mmHg (83-108)
[2017-06-03] MEDS: ACETAMINOPHEN IV (For NPO) 1,000 MG in EMPTY BAG 1 BAG IVPB SCH ×4 (00:01→17:44)
[2017-06-03 00:09] LABS: Glucose,Whole Blood 199 mg/dL (75-99)
[2017-06-03] MEDS ORDERED: NOREPINEPHRIN 16 MG-0.9%NS PMX 16 MG/250 ML ML IV SCH (00:15)
[2017-06-03] MEDS: AMIODARONE 450 MG in DEXTROSE 5% IN WATER 250 ML IV PRN ×4 (00:15→21:21)
[2017-06-03] MEDS: MILRINONE-D5W PMX 20 MG in DEXTROSE/WATER 1 100ML.BAG IV SCH ×2 (00:19→19:55)
[2017-06-03] MEDS: POTASSIUM CHLORIDE 10 MEQ in SODIUM CHLORIDE 0.9% 100 ML IV SCH ×9 (00:21→15:42)
[2017-06-03] MEDS: MONTELUKAST 10 MG TAB PO SCH (00:31)
[2017-06-03] MEDS: MUPIROCIN 2% OINT 22 GM TUBE NASAL SCH ×3 (00:31→21:11)
[2017-06-03] MEDS: METOPROLOL TARTRATE 25 MG TAB PO SCH (00:31)
[2017-06-03] MEDS: CHLORHEXIDINE GLUCONATE 15 ML CUP MUCOUS MEM SCH ×3 (00:32→21:11)
[2017-06-03] MEDS: ATORVASTATIN 40 MG TAB PO SCH ×2 (00:32→21:14)
[2017-06-03 00:59] LABS: Glucose,Whole Blood 202 mg/dL (75-99)
[2017-06-03 01:03] LABS: ABG Base Excess 0.8 mmol/L; ABG HCO3 25 mmol/L (21-25); ABG Oxygen Saturation 96.6 % (94-97); ABG PCO2 43 mmHg (35-45); ABG PH 7.39 (7.35-7.45); ABG PO2 88 mmHg (83-108)
[2017-06-03] MEDS: MORPHINE SULFATE 4 MG/ML SYRINGE IVP PRN ×2 (03:24→21:39)
[2017-06-03] MEDS: IPRATROPIUM-ALBUTEROL 3 ML NEB INHALATION SCH ×6 (03:44→23:12)
[2017-06-03 04:01] LABS: Glucose,Whole Blood 174 mg/dL (75-99)
[2017-06-03] MEDS: VANCOMYCIN 1,750 MG in SODIUM CHLORIDE 0.9% 250 ML IVPB SCH ×2 (04:01→21:09)
[2017-06-03 04:35] LABS: Basophils % (A) 0 %; Eosinophils % (A) 0 %; HCT 25.8 % (34.0-46.0); HGB 8.7 gm/dL (11.4-16.0); Lymphocytes # (A) 0.5 k/uL (1.0-4.8); Lymphocytes % (A) 7 %; MCH 28.5 pg (25.0-35.0); MCHC 33.8 g/dL (31.0-37.0); MCV 84.3 fL (80.0-100.0); Mean Platelet Volume 7.8; Monocytes # (A) 0.4 k/uL (0-1.0); Monocytes % (A) 5 %; Neutrophils % (A) 85 %; Platelet Count 107 k/uL (150-450); Poikilocytosis Slight; RBC 3.07 m/uL (3.80-5.40)
[2017-06-03 04:38] LABS: Ionized Calcium 5.3 mg/dL (4.5-5.3)
[2017-06-03 04:49] LABS: Calcium 9.4 mg/dL (8.4-10.2); Magnesium 2.2 mg/dL (1.6-2.3); Potassium 3.6 mmol/L (3.5-5.1); Total Bilirubin 2.6 mg/dL (0.2-1.3); Total Protein 4.4 g/dL (6.3-8.2)
[2017-06-03 04:53] LABS: INR 1.3 (<1.2); Prothrombin Time 12.6 sec (9.0-12.0)
[2017-06-03 04:59] LABS: Glucose,Whole Blood 178 mg/dL (75-99)
[2017-06-03 05:10] LABS: ABG Base Excess 2.7 mmol/L; ABG HCO3 26 mmol/L (21-25); ABG Oxygen Saturation 97.2 % (94-97); ABG PCO2 38 mmHg (35-45); ABG PH 7.46 (7.35-7.45); ABG PO2 84 mmHg (83-108)
[2017-06-03 07:05] LABS: Glucose,Whole Blood 156 mg/dL (75-99)
--- NOTE | 2017-06-03 07:44 | XR ---
EXAMINATION TYPE: XR chest 1V portable DATE OF EXAM: 06/03/2017 CLINICAL HISTORY: Difficulty breathing progress study. Post open cardiac surgery. TECHNIQUE: Single AP portable semiupright view of the chest is obtained. COMPARISON: Chest x-ray from one day earlier and older studies FINDINGS: And the endotracheal tube, oral gastric tube, left-sided chest tube, mediastinal drainage catheter, and right internal jugular [place]-Bouchra catheter all stable in appearance. Post CABG changes w ith mediastinal clips and sternal wires is redemonstrated. There is cardiomegaly with mild to moderate central vascular congestion and suspected small right ple ural effusion with patchy bibasilar atelectasis and/or infiltrates are redemonstrated. No sizable pne umothorax is seen bilaterally. Visualized osseous structures are intact. IMPRESSION: Cardiomegaly with central vascular congestion and suspected small right pleural effusion and patchy bibasilar atelectasis and/or infiltrate all are redemonstrated, no significant change from most recent chest x-ray.
[2017-06-03 08:17] LABS: Glucose,Whole Blood 151 mg/dL (75-99)
[2017-06-03] MEDS: HEPARIN SODIUM,PORCINE 5,000 UNIT/ML 1 ML VIAL SQ SCH ×2 (08:57→15:22)
[2017-06-03 09:06] LABS: Glucose,Whole Blood 152 mg/dL (75-99)
[2017-06-03] MEDS: PANTOPRAZOLE 40 MG/10 ML VIAL IVP SCH (09:13)
[2017-06-03] MEDS: CLOPIDOGREL 75 MG TAB PO SCH (09:13)
[2017-06-03] MEDS: ASPIRIN 325 MG TAB PO SCH (09:13)
--- NOTE | 2017-06-03 09:16 | P.PN ---
Subjective Progress Note Date: 06/03/17 On today's evaluation of 05/30/2017 the patient is being seen in follow-up. The patient is resting comfortably in bed. Noted the patient was seen yesterday for a preoperative cardiac clearance. I had a lengthy discussion with her. The patient has morbid obesity, COPD and addition to severe obstructive sleep apnea. The patient with kidney and increased risk of developing postoperative pulmonary complications should thoracotomy and bypass surgery is done. Nevertheless, weighing the risks and benefits, the patient should be able to undertake these risks. For now the patient IV heparin. Her troponins came back positive at 0.038, 0.035 and 0.0 26. The patient's family chest pain for now. CV surgery is on the case. The patient is off Plavix. The patient is being considered for coronary artery bypass surgery next week. She is hemodynamically stable at this point. No cough sputum production or chest that is so wheezing. She tells me that her BiPAP machine was taken away from her as the patient did not demonstrate adequate data as she was hospitalized for pneumonia. Her pneumonia essentially cleared showed no parenchymal lung abnormalities. There is no mediastinal lymphadenopathy. There was a large right axillary lesion measuring 6.5 x 4.8 cm in size ejection of a cyst with overlying scar. Her was a small right-sided pleural effusion with some mild atelectatic changes and mild diffuse bronchial wall thickening without consolidation, and there is a l small hiatal hernia. A 2.4 cm left of the nodule was also seen which is a adenoma and the patient has compression deformity of the level of T11. On 05/31/2017 the patient is free of any chest pain. The patient remains on IV heparin. She'll be kept in the hospital awaiting her surgery. The patient had a blood gases on room air and she demonstrated pH of 7.46 with a pCO2 of 40 and pO2 of 68 and this was done on room air. The cyst in her right axilla was noted. Apparently this was drained on multiple occasions by general surgery and she tells that there is no evidence of any malignancy found on previous drainage procedures. I discussed the case with interventional radiology. We found that there was no need to repeated drainages long as the patient has been drained in the past and the structures of the cystic rather than malignant or solids. On 06/01/2017, the patient is stable and the patient has no new complaints. Simply of any chest pain. She is ambulating. 95% pulse ox on 3 selection by nasal cannula. She is afebrile. No cardiac arrhythmias. No other complaints otherwise for now. Tentative plan is to proceed with surgery next week. On 06/02/2017, the patient is being seen him follow-up. Currently she is interested intensive care unit intubated on a mechanical ventilator. The events that occurred overnight was noted. The patient acutely went into V. fib at around 10:00 and the patient received CPR and defibrillation. The exact downtime was less than 5 minutes. The patient received a total of 2 defibrillation 3 rounds of epinephrine. There was return of spontaneous circulation. The patient was intubated and brought to the intensive care unit. This morning she is sedated With Diprivan and currently Diprivan is running at 50 mics. I was told that the patient was able to follow commands following her cardiac arrest and neurologically seems to be intact despite his underlying cardiac arrest. The patient is on no pressors. Currently she is on assist control mode of ventilation at the rate of 16, tidal volume of 450, FiO2 of 60% and a PEEP of 5. The patient's pH is at 7.39 with a pCO2 of 41 and pO2 of 117. Chest x-ray shows adequate positioning of the ET tube. The patient also has a orogastric tube in place. She is nothing by mouth for now. She has adequate pulses in all 4 extremities. She is calm and comfortable. She is producing urine output in the order of 100 mL an hour. No further cardiac arrhythmias have been noted. The patient was given amiodarone bolus 10 mg and currently she is on a maintenance amiodarone of 0.5 mg/m. Rest of the blood pressure medications are on hold. Beta doretha was given this morning and the patient received Lopressor 25 mg orally. The case was discussed with cardiothoracic surgery. It seems that the patient will need emergent coronary artery bypass surgery and the patient will be taken to the operating room today. On 06/03/2017 I'm seeing this patient for a follow-up. The patient underwent four-vessel bypass surgery. This was done in the afternoon yesterday and the patient arrived back to the intensive care unit around 11 PM. Preoperatively, there has been difficulties with oxygenation and metabolic acidosis. Overall the patient received a total of 6 bicarb amps and the patient arrived to the intensive care unit quite stable on 7 mics of norepinephrine infusion and 1 g of epinephrine infusion.. She was producing adequate amount of urine output and she was hemodynamically stable. Necessary vent changes were done overnight and this morning the patient is on a assist-control mode at the rate of 18, tidal volume of 550, FiO2 has been weaned down to 60% and the current PEEP is at 10. Most recent blood gases showed a pH of 7.46 with a pCO2 of 38 and pO2 of 84 and this was done and FiO2 of 80%. Chest x-ray shows adequate expansion of both lungs. Lung volumes are small. ET tube is in a good location. The patient has 2 chest tubes 1 mediastinal and 1 pleural. No evidence of any pneumothorax. NG tube is in a good location. This morning, the patient is sedated with Diprivan and she is calm and comfortable. We have noted some increased activity in the right upper extremity compared to the left. Note that she is a post cardiac arrest. Mental status was checked preoperatively and she was following some simple commands. In any rate, she is still on Diprivan and Diprivan will be continued as long as the patient is not ready to wean yet. This morning she is on 2 mics of norepinephrine infusion. Cardiac index is at 2.4. Her PA pressures around 35/26, and the chest tube output has been 170 mL from the left pleural and 50s on the mediastinal. No evidence of any air leak. We will lobe and this morning is at 8.7. Correlation profile shows an INR of 1.3 with a PTT of 68. IV heparin was discontinued. Objective - Vital Signs Vital signs: Vital Signs Temp 98.1 F 06/02/17 12:00 Pulse 106 H 06/03/17 08:19 Resp 18 06/03/17 07:00 BP 145/71 06/02/17 14:00 Pulse Ox 97 06/03/17 07:00 Intake & Output 06/02/17 06/03/17 06/03/17 17:59 06:59 18:59 Intake Total 219.967 Output Total 112 Balance 107.967 Weight Intake: IV 189.3 ACETAMINOPHEN IV (For NPO ) 1,000 mg In Empty Bag 1 bag @ 400 mls/hr IVPB Q6HR [facility] Rx#:[id number] Hilary 3 Amiodarone 450 mg In 16.7 Dextrose 5% in Water 250 ml @ 1 MG/MIN 34.53 mls/ hr IV .Q7H31M PRN Rx#: [id number] CO/CI 20 Lactated Ringers 1,000 ml 40 @ 50 mls/hr IV .Q20H [facility] Rx#:[id number] Milrinone-D5w Pmx 20 mg 8.1 In Dextrose/Water 1 100ml .bag @ Per Protocol IV . Q0M [facility] Rx#:[id number] Nitroglycerin-D5w Pmx 50 1.5 mg In Dextrose/Water 1 250ml.bag @ 5 MCG/MIN 1.5 mls/hr IV .Q24H [facility] Rx#: [id number] Potassium Chloride 10 meq 100 In Sodium Chloride 0.9% 100 ml @ 100 mls/hr IV Q1H [facility] Rx#:[id number] Potassium Chloride 10 meq In Sodium Chloride 0.9% 100 ml @ 105 mls/hr IVPB Q1H [facility] Rx#:[id number] Sodium Chloride 0.9% 1, 000 ml @ 100 mls/hr IV . Q10H [facility] Rx#:[id number] Vancomycin 1,750 mg In Sodium Chloride 0.9% 250 ml @ 125 mls/hr IVPB Q16H [facility] Rx#:[id number] Intake, IV Titration 30.667 Amount Amiodarone 450 mg In Dextrose 5% in Water 250 ml @ 1 MG/MIN 33.33 mls/ hr IV .Q7H31M [facility] Rx#: [id number] Heparin Sod,Pork in 0.45% NaCl 25,000 unit In 0.45 % NaCl 1 500ml.bag @ 9.5 UNITS/KG/HR 20.02 mls/hr IV .Q24H [facility] Rx#: [id number] Insulin Regular 100 unit In Sodium Chloride 0.9% 100 ml @ Per Protocol IV .Q0M [facility] Rx#:[id number] Insulin Regular 100 unit 30.667 In Sodium Chloride 0.9% 100 ml @ Per Protocol IV .Q0M [facility] Rx#:[id number] Propofol 1,000 mg In Empty Bag 1 bag @ Titrate IV .Q0M [facility] Rx#: [id number] Blood Product Rc As-1 Unit [id number] Rc As-1 Unit [id number] Output: Chest Tube Drainage 37 Chest Tube Left Pleural/ 32 Mediastinal Chest Tube Right 5 Mediastinal Drainage 0 Right Lower Medial Calf 0 Urine 75 Estimated Blood Loss Other: Voiding Method ABP, PAP, CO, CI - Last Documented Arterial Blood Pressure 96/57 Pulmonary Artery Pressure 32/23 Cardiac Output 5 Cardiac Index 2.4 - Exam Intubated on a mechanical ventilator, sedated, comfortable, orogastric and orotracheal tube are both in place. She is obese.Head exam was generally normal. There was no scleral icterus or corneal arcus. Mucous membranes were moist. Neck is supple and the patient has a right IJ Icard-Bouchra catheter which is in place. Orogastric and orotracheal tube are both in place. Neck is extremely short. No goiter or neck masses. Lungs sounds are diminished bilaterally otherwise clear. The chest is at all in place. Sternum stable clean and intact and surgical wound site is dry and clean. Heart sounds are regular, no rubs, no murmurs.Abdominal exam revealed normal bowel sounds. The abdomen was soft, non-tender, and without masses, organomegaly, or appreciable enlargement of the abdominal aorta. The patient has a femoral art line catheter which is in place and is functional. Extremities are showing adequate pulses and there is no cyanosis or clubbing at this point. No open wounds or ulceration. Neurologically, the patient is sedated yet she withdraws to painful stimulation.Examination of the skin revealed no evidence of significant rashes, suspicious appearing nevi or other concerning lesions. The wounds were discussed and they're all dry and clean. - Labs CBC & Chem 7: 06/03/17 04:05 06/03/17 04:05 Labs: Abnormal Lab Results - Last 24 Hours (Table) 06/02/17 06/02/17 06/02/17 Range/Units 11:00 11:09 11:40 RBC (3.80-5.40) m/uL Hgb (11.4-16.0) gm/dL Hct (34.0-46.0) % Plt Count (150-450) k/uL Neutrophils # (1.3-7.7) k/uL Lymphocytes # (1.0-4.8) k/uL PT (9.0-12.0) sec INR (<1.2) APTT (22.0-30.0) sec ABG pH (7.35-7.45) ABG pCO2 (35-45) mmHg ABG pO2 (83-108) mmHg ABG HCO3 (21-25) mmol/L ABG O2 Saturation (94-97) % Sodium (137-145) mmol/L Chloride (98-107) mmol/L Glucose (74-99) mg/dL POC Glucose (mg/dL) 205 H 202 H (75-99) mg/dL Total Bilirubin (0.2-1.3) mg/dL AST (14-36) U/L Alkaline Phosphatase (38-126) U/L Total Protein (6.3-8.2) g/dL Albumin (3.5-5.0) g/dL Crossmatch See Detail 06/02/17 06/02/17 06/02/17 Range/Units 12:20 13:25 15:22 RBC (3.80-5.40) m/uL Hgb (11.4-16.0) gm/dL Hct (34.0-46.0) % Plt Count (150-450) k/uL Neutrophils # (1.3-7.7) k/uL Lymphocytes # (1.0-4.8) k/uL PT (9.0-12.0) sec INR (<1.2) APTT (22.0-30.0) sec ABG pH (7.35-7.45) ABG pCO2 (35-45) mmHg ABG pO2 (83-108) mmHg ABG HCO3 (21-25) mmol/L ABG O2 Saturation (94-97) % Sodium (137-145) mmol/L Chloride (98-107) mmol/L Glucose (74-99) mg/dL POC Glucose (mg/dL) 192 H 138 H 156 H (75-99) mg/dL Total Bilirubin (0.2-1.3) mg/dL AST (14-36) U/L Alkaline Phosphatase (38-126) U/L Total Protein (6.3-8.2) g/dL Albumin (3.5-5.0) g/dL Crossmatch 06/02/17 06/02/17 06/02/17 Range/Units 16:57 22:50 22:50 RBC 2.99 L (3.80-5.40) m/uL Hgb 8.3 L (11.4-16.0) gm/dL Hct 26.6 L (34.0-46.0) % Plt Count 107 L (150-450) k/uL Neutrophils # 7.8 H (1.3-7.7) k/uL Lymphocytes # 0.9 L (1.0-4.8) k/uL PT 14.3 H (9.0-12.0) sec INR 1.5 H (<1.2) APTT 61.3 H (22.0-30.0) sec ABG pH (7.35-7.45) ABG pCO2 (35-45) mmHg ABG pO2 (83-108) mmHg ABG HCO3 (21-25) mmol/L ABG O2 Saturation (94-97) % Sodium (137-145) mmol/L Chloride (98-107) mmol/L Glucose (74-99) mg/dL POC Glucose (mg/dL) 185 H (75-99) mg/dL Total Bilirubin (0.2-1.3) mg/dL AST (14-36) U/L Alkaline Phosphatase (38-126) U/L Total Protein (6.3-8.2) g/dL Albumin (3.5-5.0) g/dL Crossmatch 06/02/17 06/02/17 06/02/17 Range/Units 22:50 22:56 23:10 RBC (3.80-5.40) m/uL Hgb (11.4-16.0) gm/dL Hct (34.0-46.0) % Plt Count (150-450) k/uL Neutrophils # (1.3-7.7) k/uL Lymphocytes # (1.0-4.8) k/uL PT (9.0-12.0) sec INR (<1.2) APTT (22.0-30.0) sec ABG pH 7.27 L (7.35-7.45) ABG pCO2 54 H (35-45) mmHg ABG pO2 74 L (83-108) mmHg ABG HCO3 (21-25) mmol/L ABG O2 Saturation 93.0 L (94-97) % Sodium 149 H (137-145) mmol/L Chloride 108 H (98-107) mmol/L Glucose 211 H (74-99) mg/dL POC Glucose (mg/dL) 220 H (75-99) mg/dL Total Bilirubin 1.9 H (0.2-1.3) mg/dL AST 50 H (14-36) U/L Alkaline Phosphatase 26 L (38-126) U/L Total Protein 4.7 L (6.3-8.2) g/dL Albumin 3.2 L (3.5-5.0) g/dL Crossmatch 06/02/17 06/02/17 06/03/17 Range/Units 23:17 23:47 00:08 RBC (3.80-5.40) m/uL Hgb (11.4-16.0) gm/dL Hct (34.0-46.0) % Plt Count (150-450) k/uL Neutrophils # (1.3-7.7) k/uL Lymphocytes # (1.0-4.8) k/uL PT (9.0-12.0) sec INR (<1.2) APTT (22.0-30.0) sec ABG pH (7.35-7.45) ABG pCO2 (35-45) mmHg ABG pO2 (83-108) mmHg ABG HCO3 (21-25) mmol/L ABG O2 Saturation (94-97) % Sodium (137-145) mmol/L Chloride (98-107) mmol/L Glucose (74-99) mg/dL POC Glucose (mg/dL) 219 H 201 H 199 H (75-99) mg/dL Total Bilirubin (0.2-1.3) mg/dL AST (14-36) U/L Alkaline Phosphatase (38-126) U/L Total Protein (6.3-8.2) g/dL Albumin (3.5-5.0) g/dL Crossmatch 06/03/17 06/03/17 06/03/17 Range/Units 00:56 03:59 04:05 RBC 3.07 L (3.80-5.40) m/uL Hgb 8.7 L (11.4-16.0) gm/dL Hct 25.8 L (34.0-46.0) % Plt Count 107 L (150-450) k/uL Neutrophils # (1.3-7.7) k/uL Lymphocytes # 0.5 L (1.0-4.8) k/uL PT (9.0-12.0) sec INR (<1.2) APTT (22.0-30.0) sec ABG pH (7.35-7.45) ABG pCO2 (35-45) mmHg ABG pO2 (83-108) mmHg ABG HCO3 (21-25) mmol/L ABG O2 Saturation (94-97) % Sodium (137-145) mmol/L Chloride (98-107) mmol/L Glucose (74-99) mg/dL POC Glucose (mg/dL) 202 H 174 H (75-99) mg/dL Total Bilirubin (0.2-1.3) mg/dL AST (14-36) U/L Alkaline Phosphatase (38-126) U/L Total Protein (6.3-8.2) g/dL Albumin (3.5-5.0) g/dL Crossmatch 06/03/17 06/03/17 06/03/17 Range/Units 04:05 04:05 04:58 RBC (3.80-5.40) m/uL Hgb (11.4-16.0) gm/dL Hct (34.0-46.0) % Plt Count (150-450) k/uL Neutrophils # (1.3-7.7) k/uL Lymphocytes # (1.0-4.8) k/uL PT 12.6 H (9.0-12.0) sec INR 1.3 H (<1.2) APTT 68.0 H (22.0-30.0) sec ABG pH 7.46 H (7.35-7.45) ABG pCO2 (35-45) mmHg ABG pO2 (83-108) mmHg ABG HCO3 26 H (21-25) mmol/L ABG O2 Saturation 97.2 H (94-97) % Sodium 147 H (137-145) mmol/L Chloride 110 H (98-107) mmol/L Glucose 165 H (74-99) mg/dL POC Glucose (mg/dL) (75-99) mg/dL Total Bilirubin 2.6 H (0.2-1.3) mg/dL AST 73 H (14-36) U/L Alkaline Phosphatase 33 L (38-126) U/L Total Protein 4.4 L (6.3-8.2) g/dL Albumin 3.0 L (3.5-5.0) g/dL Crossmatch 06/03/17 06/03/17 06/03/17 Range/Units 04:58 07:04 08:16 RBC (3.80-5.40) m/uL Hgb (11.4-16.0) gm/dL Hct (34.0-46.0) % Plt Count (150-450) k/uL Neutrophils # (1.3-7.7) k/uL Lymphocytes # (1.0-4.8) k/uL PT (9.0-12.0) sec INR (<1.2) APTT (22.0-30.0) sec ABG pH (7.35-7.45) ABG pCO2 (35-45) mmHg ABG pO2 (83-108) mmHg ABG HCO3 (21-25) mmol/L ABG O2 Saturation (94-97) % Sodium (137-145) mmol/L Chloride (98-107) mmol/L Glucose (74-99) mg/dL POC Glucose (mg/dL) 178 H 156 H 151 H (75-99) mg/dL Total Bilirubin (0.2-1.3) mg/dL AST (14-36) U/L Alkaline Phosphatase (38-126) U/L Total Protein (6.3-8.2) g/dL Albumin (3.5-5.0) g/dL Crossmatch 06/03/17 Range/Units 09:04 RBC (3.80-5.40) m/uL Hgb (11.4-16.0) gm/dL Hct (34.0-46.0) % Plt Count (150-450) k/uL Neutrophils # (1.3-7.7) k/uL Lymphocytes # (1.0-4.8) k/uL PT (9.0-12.0) sec INR (<1.2) APTT (22.0-30.0) sec ABG pH (7.35-7.45) ABG pCO2 (35-45) mmHg ABG pO2 (83-108) mmHg ABG HCO3 (21-25) mmol/L ABG O2 Saturation (94-97) % Sodium (137-145) mmol/L Chloride (98-107) mmol/L Glucose (74-99) mg/dL POC Glucose (mg/dL) 152 H (75-99) mg/dL Total Bilirubin (0.2-1.3) mg/dL AST (14-36) U/L Alkaline Phosphatase (38-126) U/L Total Protein (6.3-8.2) g/dL Albumin (3.5-5.0) g/dL Crossmatch Microbiology - Last 24 Hours (Table) 06/02/17 01:03 Gram Stain - Preliminary Sputum Sputum Culture - Preliminary Assessment and Plan Plan: 1 acute cardiac arrest, acute v fibrillation, resuscitated successfully, defibrillated and the patient is currently intubated on a mechanical ventilator. The acute episode of V. fib was probably ischemic in nature. The patient did not have any significant elevation of troponin the EKG today is sinus with a LBBB pattern 2 Symptomatic multivessel coronary artery disease involving the proximal and mid LAD, RCA and diffuse disease in the circumflex coronary artery, post SC, post four-vessel bypass surgery and the patient is postop day #1. Currently on 2 mics of levo fed. Adequate cardiac index and output. Hemodynamically stable. Not ready to wean yet and we are waiting further improvement in oxygenation prior to proceeding with weaning. Currently she is on atenolol PEEP with an FiO2 of 60%. Blood gases was noted. Thyroid avoidable be dropped down to 500. 3 . COPD, with a baseline FEV1 of 76% of predicted on outpatient basis. 4. Obstructive sleep apnea, with baseline AHI of 80, patient was prescribed BiPAP therapy at pressures 21/17 cm of water. 5. Obesity, 6. Coronary artery disease, with previous stenting 7. Recent hospitalization for right lung pneumonia at [facility] in March 2017. Patient had a thoracentesis for pleural effusion during that admission 8. Hyperlipidemia and hypertension hypertension 9. History of right breast cancer with lumpectomy/lymph node removal and radiation 10. GERD/reflux 11 a large cystic structure within the right axilla. Could be a recurrent breast cancer although this is a remote possibility. 12 diabetes mellitus, currently on insulin drip for blood sugar control 13 anemia, hemoglobin is at 8.7 14 metabolic acidosis encountered during the surgery and currently the patient is becoming more alkalotic with a pH of 7.46 Plan The patient is hemodynamically stable. The patient is still sedated on mechanical ventilator. Wean down the FiO2 as tolerated. Keep the PEEP at 10. Monitor the blood gas. Drop the tidal volume to 500 and regards to her underlying alkalosis. Continue rest of the supportive care. Continue monitoring output from the chest tube. Continue measuring the hemodynamics. We 'll monitor this patient closely along with a surgical team and proceed with weaning once oxygenation is improved and I anticipate extubation within the next 12-24 hours. Note that the patient is post cardiac arrest and when he to monitor neurologic functions closely. Once extubated, she would need BiPAP knowing that she has severe obstructive sleep apnea. Critical Care evaluation, 35 minutes. Time with Patient: Greater than 30
[2017-06-03] MEDS: INSULIN REGULAR 100 UNIT in SODIUM CHLORIDE 0.9% 100 ML IV SCH ×2 (10:13→21:14)
[2017-06-03 10:14] LABS: Glucose,Whole Blood 144 mg/dL (75-99)
[2017-06-03] MEDS ORDERED: FUROSEMIDE 10 MG/ML 4 ML VIAL IV STA (10:57)
[2017-06-03 11:05] LABS: Glucose,Whole Blood 151 mg/dL (75-99)
[2017-06-03 11:54] LABS: Glucose,Whole Blood 138 mg/dL (75-99)
[2017-06-03 13:06] LABS: Glucose,Whole Blood 142 mg/dL (75-99)
--- NOTE | 2017-06-03 14:03 | P.PN ---
Subjective Progress Note Date: 06/03/17 Principal diagnosis: Multivessel coronary artery disease, status post ventricular fibrillation arrest , history of hypertension, hyperlipidemia, insulin dependent diabetes mellitus with preoperative hemoglobin A1c 9.4%, non-ST elevation myocardial infarction this admission and history of previous myocardial infarction with stent placement to the RCA in 2010, preserved left ventricular function with preoperative ejection fraction of 50-55%, mild mitral valve regurgitation, obesity, obstructive sleep apnea, recent pneumonia in March 2017, previous tobacco dependence, right breast cancer with lumpectomy and radiation, chronic obstructive pulmonary disease with preoperative FEV1 of 76% of predicted and preoperative arterial blood gas pH 7.46, pCO2 40, pO2 68, HCO3 28, and family history of premature coronary artery disease. POD #1 coronary artery bypass grafting 4 using the left internal mammary artery to the left anterior descending coronary artery, a reverse greater saphenous vein graft from the aorta to the distal posterior descending coronary artery, a reverse greater saphenous vein graft from the aorta to the ramus intermedius coronary artery, a reverse greater saphenous vein graft from the aorta to the second diagonal coronary artery. Endoscopic harvesting of the right greater saphenous vein. Intraoperative transesophageal echocardiogram and epi-aortic scanning. Intraoperative graft flow measurement using the Blueseedstim system. Status post preoperative acute cardiac arrest with ventricular fibrillation arrest with successful resuscitation. The patient is currently lying in bed in the intensive care unit. She is in no acute distress. She is currently hemodynamically stable. She remains intubated with mechanical ventilator support. Oxygen saturations currently 98% . Sedation using Diprivan at 10 mcg/kg/m remains, she is opening up her eyes with verbal stimuli and following some verbal commands with strength to her right upper extremity greater than her left upper extremity. Objective - Vital Signs Vital signs: Vital Signs Temp 98.1 F 06/02/17 12:00 Pulse 99 06/03/17 13:00 Resp 18 06/03/17 13:00 BP 145/71 06/02/17 14:00 Pulse Ox 93 L 06/03/17 13:00 Intake & Output 06/02/17 06/03/17 06/03/17 17:59 06:59 18:59 Intake Total 675.201 Output Total 682 Balance -6.799 Weight Intake: IV 586.0 0.9 for pressure 57 ACETAMINOPHEN IV (For NPO ) 1,000 mg In Empty Bag 1 bag @ 400 mls/hr IVPB Q6HR [facility] Rx#:[id number] Amiodarone 450 mg In 66.8 Dextrose 5% in Water 250 ml @ 1 MG/MIN 34.53 mls/ hr IV .Q7H31M PRN Rx#: [id number] CO/CI 60 Lactated Ringers 1,000 ml 135 @ 50 mls/hr IV .Q20H [facility] Rx#:[id number] Milrinone-D5w Pmx 20 mg 56.7 In Dextrose/Water 1 100ml .bag @ Per Protocol IV . Q0M [facility] Rx#:[id number] Nitroglycerin-D5w Pmx 50 10.5 mg In Dextrose/Water 1 250ml.bag @ 5 MCG/MIN 1.5 mls/hr IV .Q24H ONE Rx#: [id number] Potassium Chloride 10 meq 200 In Sodium Chloride 0.9% 100 ml @ 100 mls/hr IV Q1H [facility] Rx#:[id number] Potassium Chloride 10 meq In Sodium Chloride 0.9% 100 ml @ 105 mls/hr IVPB Q1H [facility] Rx#:[id number] Sodium Chloride 0.9% 1, 000 ml @ 100 mls/hr IV . Q10H [facility] Rx#:[id number] Vancomycin 1,750 mg In Sodium Chloride 0.9% 250 ml @ 125 mls/hr IVPB Q16H [facility] Rx#:[id number] Intake, IV Titration 89.201 Amount Amiodarone 450 mg In Dextrose 5% in Water 250 ml @ 1 MG/MIN 33.33 mls/ hr IV .Q7H31M [facility] Rx#: [id number] Heparin Sod,Pork in 0.45% NaCl 25,000 unit In 0.45 % NaCl 1 500ml.bag @ 9.5 UNITS/KG/HR 20.02 mls/hr IV .Q24H [facility] Rx#: [id number] Insulin Regular 100 unit In Sodium Chloride 0.9% 100 ml @ Per Protocol IV .Q0M [facility] Rx#:[id number] Insulin Regular 100 unit 89.201 In Sodium Chloride 0.9% 100 ml @ Per Protocol IV .Q0M [facility] Rx#:[id number] Propofol 1,000 mg In Empty Bag 1 bag @ Titrate IV .Q0M [facility] Rx#: [id number] Blood Product As-1 Unit [id number] Rc As-1 Unit [id number] Output: Chest Tube Drainage 162 Chest Tube Left Pleural/ 32 Mediastinal Chest Tube Right 5 Mediastinal Mediastinal 45 left pleural 80 Gastric Drainage 100 Drainage 25 Right Lower Medial Calf 25 Urine 395 Estimated Blood Loss Other: Voiding Method Indwelling Catheter ABP, PAP, CO, CI - Last Documented Arterial Blood Pressure 109/59 Pulmonary Artery Pressure 34/23 Cardiac Output 5.2 Cardiac Index 2.5 - Exam The patient remains intubated with mechanical ventilator support. She is currently sedated with Diprivan at 10 mcg/kg/m. She was following some verbal commands appropriately. Opens her eyes to verbal stimuli. - Constitutional General appearance: Present: no acute distress - Neck Details: No JVD, neck is supple, no lymphadenopathy. Right IJ Cordis remains in place with [place] catheter. - Respiratory Details: Lung sounds are essentially clear throughout, diminished to her bilateral bases. Respirations are symmetrical and unlabored with mechanical ventilator support. #[address] and secured at 22 cm at the lip. Current ventilator settings are as follows: AC 18, TV 500, FiO2 40%, PEEP of 8. Oxygen saturations are 98% with mechanical ventilator support. Mediastinal and left pleural chest tubes are secured in place and are to low continuous wall suction -20 cm H2O. No air leak present. Draining thin serosanguineous drainage. Mediastinal chest tube drained 50 mL since surgery. Left pleural chest tube drained 120 mL in the last 8 hours and 170 mL since surgery. - Cardiovascular Details: Regular rhythm and rate. S1 and S2 present, negative for S3, gallop or murmur. Sternum is stable. Bedside telemetry showing sinus tachycardia heart rate 107. Heart hugger's in place. Knee-high DIVINE hose and sequential compression devices are in place to her bilateral lower extremities. Atrial and ventricular epicardial pacemaker wires intact with backup generator in place. + 2 edema to her left lower extremity and +1 edema to her right lower extremity. Left femoral arterial line intact, patent and secured. [place]ouch[place] catheter with Cordis in placed to her left IJ. Current CO 5.0, CI 2.4, CVP 26, PA pressures 35/26. - Gastrointestinal Gastrointestinal Comment(s): Abdomen is soft, slightly distended, nontender. Hypoactive bowel sounds to all 4 abdominal quadrants. OG tube in place to low continuous wall suction, draining bile colored drainage. - Genitourinary Genitourinary Comment(s): Lea catheter for accurate I&O. Draining clear yellow urine. Urine output marginal with 215 mL output in the last 8 hours. - Integumentary Integumentary Comment(s): Skin is warm, and dry. No clubbing or cyanosis. Midline sternal incision clean dry and well approximated. No drainage or redness present. Dermabond dressing clean and dry. Right leg EVH sites clean dry and well approximated. No drainage or redness present. DREW drain remains intact with 60 mL output since surgery of thin serosanguineous drainage. - Neurologic Neurologic Comment(s): Sedated on Diprivan drip. - Musculoskeletal Musculoskeletal: Present: generalized weakness (Right extremity movements greater than left extremity movements.) - Allied health notes Allied health notes reviewed: nursing - Labs CBC & Chem 7: 06/03/17 04:05 06/03/17 12:15 Labs: Abnormal Lab Results - Last 24 Hours (Table) 06/02/17 06/02/17 06/02/17 Range/Units 11:09 13:25 15:22 RBC (3.80-5.40) m/uL Hgb (11.4-16.0) gm/dL Hct (34.0-46.0) % Plt Count (150-450) k/uL Neutrophils # (1.3-7.7) k/uL Lymphocytes # (1.0-4.8) k/uL PT (9.0-12.0) sec INR (<1.2) APTT (22.0-30.0) sec ABG pH (7.35-7.45) ABG pCO2 (35-45) mmHg ABG pO2 (83-108) mmHg ABG HCO3 (21-25) mmol/L ABG O2 Saturation (94-97) % Sodium (137-145) mmol/L Chloride (98-107) mmol/L Glucose (74-99) mg/dL POC Glucose (mg/dL) 138 H 156 H (75-99) mg/dL Total Bilirubin (0.2-1.3) mg/dL AST (14-36) U/L Alkaline Phosphatase (38-126) U/L Total Protein (6.3-8.2) g/dL Albumin (3.5-5.0) g/dL Crossmatch See Detail 06/02/17 06/02/17 06/02/17 Range/Units 16:57 22:50 22:50 RBC 2.99 L (3.80-5.40) m/uL Hgb 8.3 L (11.4-16.0) gm/dL Hct 26.6 L (34.0-46.0) % Plt Count 107 L (150-450) k/uL Neutrophils # 7.8 H (1.3-7.7) k/uL Lymphocytes # 0.9 L (1.0-4.8) k/uL PT 14.3 H (9.0-12.0) sec INR 1.5 H (<1.2) APTT 61.3 H (22.0-30.0) sec ABG pH (7.35-7.45) ABG pCO2 (35-45) mmHg ABG pO2 (83-108) mmHg ABG HCO3 (21-25) mmol/L ABG O2 Saturation (94-97) % Sodium (137-145) mmol/L Chloride (98-107) mmol/L Glucose (74-99) mg/dL POC Glucose (mg/dL) 185 H (75-99) mg/dL Total Bilirubin (0.2-1.3) mg/dL AST (14-36) U/L Alkaline Phosphatase (38-126) U/L Total Protein (6.3-8.2) g/dL Albumin (3.5-5.0) g/dL Crossmatch 06/02/17 06/02/17 06/02/17 Range/Units 22:50 22:56 23:10 RBC (3.80-5.40) m/uL Hgb (11.4-16.0) gm/dL Hct (34.0-46.0) % Plt Count (150-450) k/uL Neutrophils # (1.3-7.7) k/uL Lymphocytes # (1.0-4.8) k/uL PT (9.0-12.0) sec INR (<1.2) APTT (22.0-30.0) sec ABG pH 7.27 L (7.35-7.45) ABG pCO2 54 H (35-45) mmHg ABG pO2 74 L (83-108) mmHg ABG HCO3 (21-25) mmol/L ABG O2 Saturation 93.0 L (94-97) % Sodium 149 H (137-145) mmol/L Chloride 108 H (98-107) mmol/L Glucose 211 H (74-99) mg/dL POC Glucose (mg/dL) 220 H (75-99) mg/dL Total Bilirubin 1.9 H (0.2-1.3) mg/dL AST 50 H (14-36) U/L Alkaline Phosphatase 26 L (38-126) U/L Total Protein 4.7 L (6.3-8.2) g/dL Albumin 3.2 L (3.5-5.0) g/dL Crossmatch 06/02/17 06/02/17 06/03/17 Range/Units 23:17 23:47 00:08 RBC (3.80-5.40) m/uL Hgb (11.4-16.0) gm/dL Hct (34.0-46.0) % Plt Count (150-450) k/uL Neutrophils # (1.3-7.7) k/uL Lymphocytes # (1.0-4.8) k/uL PT (9.0-12.0) sec INR (<1.2) APTT (22.0-30.0) sec ABG pH (7.35-7.45) ABG pCO2 (35-45) mmHg ABG pO2 (83-108) mmHg ABG HCO3 (21-25) mmol/L ABG O2 Saturation (94-97) % Sodium (137-145) mmol/L Chloride (98-107) mmol/L Glucose (74-99) mg/dL POC Glucose (mg/dL) 219 H 201 H 199 H (75-99) mg/dL Total Bilirubin (0.2-1.3) mg/dL AST (14-36) U/L Alkaline Phosphatase (38-126) U/L Total Protein (6.3-8.2) g/dL Albumin (3.5-5.0) g/dL Crossmatch 06/03/17 06/03/17 06/03/17 Range/Units 00:56 03:59 04:05 RBC 3.07 L (3.80-5.40) m/uL Hgb 8.7 L (11.4-16.0) gm/dL Hct 25.8 L (34.0-46.0) % Plt Count 107 L (150-450) k/uL Neutrophils # (1.3-7.7) k/uL Lymphocytes # 0.5 L (1.0-4.8) k/uL PT (9.0-12.0) sec INR (<1.2) APTT (22.0-30.0) sec ABG pH (7.35-7.45) ABG pCO2 (35-45) mmHg ABG pO2 (83-108) mmHg ABG HCO3 (21-25) mmol/L ABG O2 Saturation (94-97) % Sodium (137-145) mmol/L Chloride (98-107) mmol/L Glucose (74-99) mg/dL POC Glucose (mg/dL) 202 H 174 H (75-99) mg/dL Total Bilirubin (0.2-1.3) mg/dL AST (14-36) U/L Alkaline Phosphatase (38-126) U/L Total Protein (6.3-8.2) g/dL Albumin (3.5-5.0) g/dL Crossmatch 06/03/17 06/03/17 06/03/17 Range/Units 04:05 04:05 04:58 RBC (3.80-5.40) m/uL Hgb (11.4-16.0) gm/dL Hct (34.0-46.0) % Plt Count (150-450) k/uL Neutrophils # (1.3-7.7) k/uL Lymphocytes # (1.0-4.8) k/uL PT 12.6 H (9.0-12.0) sec INR 1.3 H (<1.2) APTT 68.0 H (22.0-30.0) sec ABG pH 7.46 H (7.35-7.45) ABG pCO2 (35-45) mmHg ABG pO2 (83-108) mmHg ABG HCO3 26 H (21-25) mmol/L ABG O2 Saturation 97.2 H (94-97) % Sodium 147 H (137-145) mmol/L Chloride 110 H (98-107) mmol/L Glucose 165 H (74-99) mg/dL POC Glucose (mg/dL) (75-99) mg/dL Total Bilirubin 2.6 H (0.2-1.3) mg/dL AST 73 H (14-36) U/L Alkaline Phosphatase 33 L (38-126) U/L Total Protein 4.4 L (6.3-8.2) g/dL Albumin 3.0 L (3.5-5.0) g/dL Crossmatch 06/03/17 06/03/17 06/03/17 Range/Units 04:58 07:04 08:16 RBC (3.80-5.40) m/uL Hgb (11.4-16.0) gm/dL Hct (34.0-46.0) % Plt Count (150-450) k/uL Neutrophils # (1.3-7.7) k/uL Lymphocytes # (1.0-4.8) k/uL PT (9.0-12.0) sec INR (<1.2) APTT (22.0-30.0) sec ABG pH (7.35-7.45) ABG pCO2 (35-45) mmHg ABG pO2 (83-108) mmHg ABG HCO3 (21-25) mmol/L ABG O2 Saturation (94-97) % Sodium (137-145) mmol/L Chloride (98-107) mmol/L Glucose (74-99) mg/dL POC Glucose (mg/dL) 178 H 156 H 151 H (75-99) mg/dL Total Bilirubin (0.2-1.3) mg/dL AST (14-36) U/L Alkaline Phosphatase (38-126) U/L Total Protein (6.3-8.2) g/dL Albumin (3.5-5.0) g/dL Crossmatch 06/03/17 06/03/17 06/03/17 Range/Units 09:04 10:12 11:03 RBC (3.80-5.40) m/uL Hgb (11.4-16.0) gm/dL Hct (34.0-46.0) % Plt Count (150-450) k/uL Neutrophils # (1.3-7.7) k/uL Lymphocytes # (1.0-4.8) k/uL PT (9.0-12.0) sec INR (<1.2) APTT (22.0-30.0) sec ABG pH (7.35-7.45) ABG pCO2 (35-45) mmHg ABG pO2 (83-108) mmHg ABG HCO3 (21-25) mmol/L ABG O2 Saturation (94-97) % Sodium (137-145) mmol/L Chloride (98-107) mmol/L Glucose (74-99) mg/dL POC Glucose (mg/dL) 152 H 144 H 151 H (75-99) mg/dL Total Bilirubin (0.2-1.3) mg/dL AST (14-36) U/L Alkaline Phosphatase (38-126) U/L Total Protein (6.3-8.2) g/dL Albumin (3.5-5.0) g/dL Crossmatch 06/03/17 06/03/17 Range/Units 11:53 13:04 RBC (3.80-5.40) m/uL Hgb (11.4-16.0) gm/dL Hct (34.0-46.0) % Plt Count (150-450) k/uL Neutrophils # (1.3-7.7) k/uL Lymphocytes # (1.0-4.8) k/uL PT (9.0-12.0) sec INR (<1.2) APTT (22.0-30.0) sec ABG pH (7.35-7.45) ABG pCO2 (35-45) mmHg ABG pO2 (83-108) mmHg ABG HCO3 (21-25) mmol/L ABG O2 Saturation (94-97) % Sodium (137-145) mmol/L Chloride (98-107) mmol/L Glucose (74-99) mg/dL POC Glucose (mg/dL) 138 H 142 H (75-99) mg/dL Total Bilirubin (0.2-1.3) mg/dL AST (14-36) U/L Alkaline Phosphatase (38-126) U/L Total Protein (6.3-8.2) g/dL Albumin (3.5-5.0) g/dL Crossmatch Microbiology - Last 24 Hours (Table) 06/02/17 01:03 Gram Stain - Preliminary Sputum Sputum Culture - Preliminary - Imaging and Cardiology Chest x-ray: report reviewed, image reviewed Assessment and Plan (1) History of right breast cancer Current Visit: Yes Status: Acute Code(s): Z85.3 - PERSONAL HISTORY OF MALIGNANT NEOPLASM OF BREAST SNOMED Code(s): 523253044 (2) Non-STEMI (non-ST elevated myocardial infarction) Current Visit: Yes Status: Acute Code(s): I21.4 - NON-ST ELEVATION (NSTEMI) MYOCARDIAL INFARCTION SNOMED Code(s): 762541805 (3) Diabetes mellitus Current Visit: Yes Status: Chronic Code(s): E11.9 - TYPE 2 DIABETES MELLITUS WITHOUT COMPLICATIONS SNOMED Code(s): 77137195 (4) Family history of premature coronary artery disease Current Visit: Yes Status: Chronic Code(s): Z82.49 - FAMILY HX OF ISCHEM HEART DIS AND OTH DIS OF THE CIRC SYS SNOMED Code(s): 367927853 (5) History of heart artery stent Current Visit: Yes Status: Chronic Code(s): Z95.5 - PRESENCE OF CORONARY ANGIOPLASTY IMPLANT AND GRAFT SNOMED Code(s): 684788307 (6) Hyperlipidemia Current Visit: Yes Status: Chronic Code(s): E78.5 - HYPERLIPIDEMIA, UNSPECIFIED SNOMED Code(s): 27764058 (7) Hypertension Current Visit: Yes Status: Chronic Code(s): I10 - ESSENTIAL (PRIMARY) HYPERTENSION SNOMED Code(s): 18678222 (8) Morbid obesity with BMI of 40.0-44.9, adult Current Visit: Yes Status: Chronic Code(s): E66.01 - MORBID (SEVERE) OBESITY DUE TO EXCESS CALORIES; Z68.41 - BODY MASS INDEX (BMI) 40.0-44.9, ADULT SNOMED Code(s): 630466784 (9) History of sudden cardiac arrest successfully resuscitated Current Visit: Yes Status: Acute Code(s): Z86.74 - PERSONAL HISTORY OF SUDDEN CARDIAC ARREST SNOMED Code(s): 849641296 Plan: 1. Continue aspirin, Plavix, statin, and subcu heparin. 2. We will restart her metoprolol at 12.5 mg per OG tube twice a day. We will increase her beta doretha as tolerated. 3. Wean norepinephrine drip to keep blood pressure greater than 100 mmHg systolic. 4. Keep Primacor at 0.2 mcg/kg/m until extubated. 5. Mechanical ventilator management and recommendations per Dr. Mari. 6. Medical management per primary care service. 7. DVT and GI prophylaxis. Knee-high DIVINE hose and sequential compression devices in place. 8. Continue amiodarone drip, prophylaxis for ventricular arrhythmias. 9. Lasix 40 mg IV 1 now. 10. Replace potassium per protocol. 11. Monitor daily labs and chest x-rays. 12. More recommendations to follow as the patient progresses in her care. Time with Patient: Greater than 30
[2017-06-03 14:17] LABS: Glucose,Whole Blood 140 mg/dL (75-99)
[2017-06-03] MEDS ORDERED: METOPROLOL TARTRATE 12.5 MG TAB PO STA (14:17)
[2017-06-03 15:14] LABS: Glucose,Whole Blood 136 mg/dL (75-99)
[2017-06-03 16:12] LABS: ABG Base Excess 3.2 mmol/L; ABG HCO3 27 mmol/L (21-25); ABG Oxygen Saturation 93.8 % (94-97); ABG PCO2 37 mmHg (35-45); ABG PH 7.47 (7.35-7.45); ABG PO2 64 mmHg (83-108); ABG TCO2 28 mmol/L (19-24)
--- NOTE | 2017-06-03 16:14 | P.PN ---
Subjective Patient underwent coronary artery bypass grafting yesterday. She remains in sinus rhythm She is intubated pulse rate 98 respirations normal blood pressure 114/64 mmHg Breath sounds are reduced bilaterally no rhonchi no crackles heart sounds are soft and distant 70s warm no edema Impression multivessel coronary artery disease status post VF arrest status post coronary artery bypass grafting Hypertension Insulin-dependent diabetes hemoglobin A1c preoperatively was 9.4% Non-ST segment elevation NH Plan Reinitiate cardiac medications and postoperative ICU care to continue Objective - Vital Signs Vital signs: Vital Signs Temp 98.1 F 06/02/17 12:00 Pulse 107 H 06/03/17 15:37 Resp 18 06/03/17 15:30 BP 145/71 06/02/17 14:00 Pulse Ox 96 06/03/17 15:30 Intake & Output 06/02/17 06/03/17 06/03/17 17:59 06:59 18:59 Intake Total 848.452 Output Total 877 Balance -28.548 Weight Intake: IV 751.7 0.9 for pressure 75 ACETAMINOPHEN IV (For NPO ) 1,000 mg In Empty Bag 1 bag @ 400 mls/hr IVPB Q6HR [facility] Rx#:[id number] Amiodarone 450 mg In 66.8 Dextrose 5% in Water 250 ml @ 1 MG/MIN 34.53 mls/ hr IV .Q7H31M PRN Rx#: [id number] CO/CI 60 Lactated Ringers 1,000 ml 165 @ 20 mls/hr IV .Q24H [facility] Rx#:[id number] Milrinone-D5w Pmx 20 mg 72.9 In Dextrose/Water 1 100ml .bag @ Per Protocol IV . Q0M [facility] Rx#:[id number] Nitroglycerin-D5w Pmx 50 12.0 mg In Dextrose/Water 1 250ml.bag @ 5 MCG/MIN 1.5 mls/hr IV .Q24H ONE Rx#: [id number] Potassium Chloride 10 meq 300 In Sodium Chloride 0.9% 100 ml @ 100 mls/hr IV Q1H [facility] Rx#:[id number] Potassium Chloride 10 meq In Sodium Chloride 0.9% 100 ml @ 105 mls/hr IVPB Q1H [facility] Rx#:[id number] Sodium Chloride 0.9% 1, 000 ml @ 100 mls/hr IV . Q10H [facility] Rx#:[id number] Vancomycin 1,750 mg In Sodium Chloride 0.9% 250 ml @ 125 mls/hr IVPB Q16H [facility] Rx#:[id number] Intake, IV Titration 96.752 Amount Amiodarone 450 mg In Dextrose 5% in Water 250 ml @ 1 MG/MIN 33.33 mls/ hr IV .Q7H31M [facility] Rx#: [id number] Heparin Sod,Pork in 0.45% NaCl 25,000 unit In 0.45 % NaCl 1 500ml.bag @ 9.5 UNITS/KG/HR 20.02 mls/hr IV .Q24H [facility] Rx#: [id number] Insulin Regular 100 unit In Sodium Chloride 0.9% 100 ml @ Per Protocol IV .Q0M [facility] Rx#:[id number] Insulin Regular 100 unit 89.201 In Sodium Chloride 0.9% 100 ml @ Per Protocol IV .Q0M [facility] Rx#:[id number] Norepinephrin 16 mg-0.9% 7.551 Ns Pmx 16 mg In 250 ml @ Titrate IV .Q0M [facility] Rx#: [id number] Propofol 1,000 mg In Empty Bag 1 bag @ Titrate IV .Q0M [facility] Rx#: [id number] Blood Product Rc As-1 Unit [id number] Rc As-1 Unit [id number] Output: Chest Tube Drainage 237 Chest Tube Left Pleural/ 32 Mediastinal Chest Tube Right 5 Mediastinal Mediastinal 50 left pleural 150 Gastric Drainage 100 Drainage 25 Right Lower Medial Calf 25 Urine 515 Estimated Blood Loss Other: Voiding Method Indwelling Catheter ABP, PAP, CO, CI - Last Documented Arterial Blood Pressure 135/71 Pulmonary Artery Pressure 33/22 Cardiac Output 5.2 Cardiac Index 2.5 - Labs CBC & Chem 7: 06/03/17 04:05 06/03/17 12:15 Labs: Abnormal Lab Results - Last 24 Hours (Table) 06/02/17 06/02/17 06/02/17 Range/Units 11:09 15:22 16:57 RBC (3.80-5.40) m/uL Hgb (11.4-16.0) gm/dL Hct (34.0-46.0) % Plt Count (150-450) k/uL Neutrophils # (1.3-7.7) k/uL Lymphocytes # (1.0-4.8) k/uL PT (9.0-12.0) sec INR (<1.2) APTT (22.0-30.0) sec ABG pH (7.35-7.45) ABG pCO2 (35-45) mmHg ABG pO2 (83-108) mmHg ABG HCO3 (21-25) mmol/L ABG Total CO2 (19-24) mmol/L ABG O2 Saturation (94-97) % Sodium (137-145) mmol/L Chloride (98-107) mmol/L Glucose (74-99) mg/dL POC Glucose (mg/dL) 156 H 185 H (75-99) mg/dL Total Bilirubin (0.2-1.3) mg/dL AST (14-36) U/L Alkaline Phosphatase (38-126) U/L Total Protein (6.3-8.2) g/dL Albumin (3.5-5.0) g/dL Crossmatch See Detail 06/02/17 06/02/17 06/02/17 Range/Units 22:50 22:50 22:50 RBC 2.99 L (3.80-5.40) m/uL Hgb 8.3 L (11.4-16.0) gm/dL Hct 26.6 L (34.0-46.0) % Plt Count 107 L (150-450) k/uL Neutrophils # 7.8 H (1.3-7.7) k/uL Lymphocytes # 0.9 L (1.0-4.8) k/uL PT 14.3 H (9.0-12.0) sec INR 1.5 H (<1.2) APTT 61.3 H (22.0-30.0) sec ABG pH (7.35-7.45) ABG pCO2 (35-45) mmHg ABG pO2 (83-108) mmHg ABG HCO3 (21-25) mmol/L ABG Total CO2 (19-24) mmol/L ABG O2 Saturation (94-97) % Sodium 149 H (137-145) mmol/L Chloride 108 H (98-107) mmol/L Glucose 211 H (74-99) mg/dL POC Glucose (mg/dL) (75-99) mg/dL Total Bilirubin 1.9 H (0.2-1.3) mg/dL AST 50 H (14-36) U/L Alkaline Phosphatase 26 L (38-126) U/L Total Protein 4.7 L (6.3-8.2) g/dL Albumin 3.2 L (3.5-5.0) g/dL Crossmatch 06/02/17 06/02/17 06/02/17 Range/Units 22:56 23:10 23:17 RBC (3.80-5.40) m/uL Hgb (11.4-16.0) gm/dL Hct (34.0-46.0) % Plt Count (150-450) k/uL Neutrophils # (1.3-7.7) k/uL Lymphocytes # (1.0-4.8) k/uL PT (9.0-12.0) sec INR (<1.2) APTT (22.0-30.0) sec ABG pH 7.27 L (7.35-7.45) ABG pCO2 54 H (35-45) mmHg ABG pO2 74 L (83-108) mmHg ABG HCO3 (21-25) mmol/L ABG Total CO2 (19-24) mmol/L ABG O2 Saturation 93.0 L (94-97) % Sodium (137-145) mmol/L Chloride (98-107) mmol/L Glucose (74-99) mg/dL POC Glucose (mg/dL) 220 H 219 H (75-99) mg/dL Total Bilirubin (0.2-1.3) mg/dL AST (14-36) U/L Alkaline Phosphatase (38-126) U/L Total Protein (6.3-8.2) g/dL Albumin (3.5-5.0) g/dL Crossmatch 06/02/17 06/03/17 06/03/17 Range/Units 23:47 00:08 00:56 RBC (3.80-5.40) m/uL Hgb (11.4-16.0) gm/dL Hct (34.0-46.0) % Plt Count (150-450) k/uL Neutrophils # (1.3-7.7) k/uL Lymphocytes # (1.0-4.8) k/uL PT (9.0-12.0) sec INR (<1.2) APTT (22.0-30.0) sec ABG pH (7.35-7.45) ABG pCO2 (35-45) mmHg ABG pO2 (83-108) mmHg ABG HCO3 (21-25) mmol/L ABG Total CO2 (19-24) mmol/L ABG O2 Saturation (94-97) % Sodium (137-145) mmol/L Chloride (98-107) mmol/L Glucose (74-99) mg/dL POC Glucose (mg/dL) 201 H 199 H 202 H (75-99) mg/dL Total Bilirubin (0.2-1.3) mg/dL AST (14-36) U/L Alkaline Phosphatase (38-126) U/L Total Protein (6.3-8.2) g/dL Albumin (3.5-5.0) g/dL Crossmatch 06/03/17 06/03/17 06/03/17 Range/Units 03:59 04:05 04:05 RBC 3.07 L (3.80-5.40) m/uL Hgb 8.7 L (11.4-16.0) gm/dL Hct 25.8 L (34.0-46.0) % Plt Count 107 L (150-450) k/uL Neutrophils # (1.3-7.7) k/uL Lymphocytes # 0.5 L (1.0-4.8) k/uL PT (9.0-12.0) sec INR (<1.2) APTT (22.0-30.0) sec ABG pH (7.35-7.45) ABG pCO2 (35-45) mmHg ABG pO2 (83-108) mmHg ABG HCO3 (21-25) mmol/L ABG Total CO2 (19-24) mmol/L ABG O2 Saturation (94-97) % Sodium 147 H (137-145) mmol/L Chloride 110 H (98-107) mmol/L Glucose 165 H (74-99) mg/dL POC Glucose (mg/dL) 174 H (75-99) mg/dL Total Bilirubin 2.6 H (0.2-1.3) mg/dL AST 73 H (14-36) U/L Alkaline Phosphatase 33 L (38-126) U/L Total Protein 4.4 L (6.3-8.2) g/dL Albumin 3.0 L (3.5-5.0) g/dL Crossmatch 06/03/17 06/03/17 06/03/17 Range/Units 04:05 04:58 04:58 RBC (3.80-5.40) m/uL Hgb (11.4-16.0) gm/dL Hct (34.0-46.0) % Plt Count (150-450) k/uL Neutrophils # (1.3-7.7) k/uL Lymphocytes # (1.0-4.8) k/uL PT 12.6 H (9.0-12.0) sec INR 1.3 H (<1.2) APTT 68.0 H (22.0-30.0) sec ABG pH 7.46 H (7.35-7.45) ABG pCO2 (35-45) mmHg ABG pO2 (83-108) mmHg ABG HCO3 26 H (21-25) mmol/L ABG Total CO2 (19-24) mmol/L ABG O2 Saturation 97.2 H (94-97) % Sodium (137-145) mmol/L Chloride (98-107) mmol/L Glucose (74-99) mg/dL POC Glucose (mg/dL) 178 H (75-99) mg/dL Total Bilirubin (0.2-1.3) mg/dL AST (14-36) U/L Alkaline Phosphatase (38-126) U/L Total Protein (6.3-8.2) g/dL Albumin (3.5-5.0) g/dL Crossmatch 06/03/17 06/03/17 06/03/17 Range/Units 07:04 08:16 09:04 RBC (3.80-5.40) m/uL Hgb (11.4-16.0) gm/dL Hct (34.0-46.0) % Plt Count (150-450) k/uL Neutrophils # (1.3-7.7) k/uL Lymphocytes # (1.0-4.8) k/uL PT (9.0-12.0) sec INR (<1.2) APTT (22.0-30.0) sec ABG pH (7.35-7.45) ABG pCO2 (35-45) mmHg ABG pO2 (83-108) mmHg ABG HCO3 (21-25) mmol/L ABG Total CO2 (19-24) mmol/L ABG O2 Saturation (94-97) % Sodium (137-145) mmol/L Chloride (98-107) mmol/L Glucose (74-99) mg/dL POC Glucose (mg/dL) 156 H 151 H 152 H (75-99) mg/dL Total Bilirubin (0.2-1.3) mg/dL AST (14-36) U/L Alkaline Phosphatase (38-126) U/L Total Protein (6.3-8.2) g/dL Albumin (3.5-5.0) g/dL Crossmatch 06/03/17 06/03/17 06/03/17 Range/Units 10:12 11:03 11:53 RBC (3.80-5.40) m/uL Hgb (11.4-16.0) gm/dL Hct (34.0-46.0) % Plt Count (150-450) k/uL Neutrophils # (1.3-7.7) k/uL Lymphocytes # (1.0-4.8) k/uL PT (9.0-12.0) sec INR (<1.2) APTT (22.0-30.0) sec ABG pH (7.35-7.45) ABG pCO2 (35-45) mmHg ABG pO2 (83-108) mmHg ABG HCO3 (21-25) mmol/L ABG Total CO2 (19-24) mmol/L ABG O2 Saturation (94-97) % Sodium (137-145) mmol/L Chloride (98-107) mmol/L Glucose (74-99) mg/dL POC Glucose (mg/dL) 144 H 151 H 138 H (75-99) mg/dL Total Bilirubin (0.2-1.3) mg/dL AST (14-36) U/L Alkaline Phosphatase (38-126) U/L Total Protein (6.3-8.2) g/dL Albumin (3.5-5.0) g/dL Crossmatch 06/03/17 06/03/17 06/03/17 Range/Units 13:04 14:15 14:59 RBC (3.80-5.40) m/uL Hgb (11.4-16.0) gm/dL Hct (34.0-46.0) % Plt Count (150-450) k/uL Neutrophils # (1.3-7.7) k/uL Lymphocytes # (1.0-4.8) k/uL PT (9.0-12.0) sec INR (<1.2) APTT (22.0-30.0) sec ABG pH (7.35-7.45) ABG pCO2 (35-45) mmHg ABG pO2 (83-108) mmHg ABG HCO3 (21-25) mmol/L ABG Total CO2 (19-24) mmol/L ABG O2 Saturation (94-97) % Sodium (137-145) mmol/L Chloride (98-107) mmol/L Glucose (74-99) mg/dL POC Glucose (mg/dL) 142 H 140 H 136 H (75-99) mg/dL Total Bilirubin (0.2-1.3) mg/dL AST (14-36) U/L Alkaline Phosphatase (38-126) U/L Total Protein (6.3-8.2) g/dL Albumin (3.5-5.0) g/dL Crossmatch 06/03/17 Range/Units 16:09 RBC (3.80-5.40) m/uL Hgb (11.4-16.0) gm/dL Hct (34.0-46.0) % Plt Count (150-450) k/uL Neutrophils # (1.3-7.7) k/uL Lymphocytes # (1.0-4.8) k/uL PT (9.0-12.0) sec INR (<1.2) APTT (22.0-30.0) sec ABG pH 7.47 H (7.35-7.45) ABG pCO2 (35-45) mmHg ABG pO2 64 L (83-108) mmHg ABG HCO3 27 H (21-25) mmol/L ABG Total CO2 28 H (19-24) mmol/L ABG O2 Saturation 93.8 L (94-97) % Sodium (137-145) mmol/L Chloride (98-107) mmol/L Glucose (74-99) mg/dL POC Glucose (mg/dL) (75-99) mg/dL Total Bilirubin (0.2-1.3) mg/dL AST (14-36) U/L Alkaline Phosphatase (38-126) U/L Total Protein (6.3-8.2) g/dL Albumin (3.5-5.0) g/dL Crossmatch Microbiology - Last 24 Hours (Table) 06/02/17 01:03 Gram Stain - Preliminary Sputum Sputum Culture - Preliminary
[2017-06-03 16:20] LABS: Glucose,Whole Blood 136 mg/dL (75-99)
[2017-06-03 17:09] LABS: Glucose,Whole Blood 140 mg/dL (75-99)
[2017-06-03] MEDS ORDERED: DEXMEDETOMIDINE/0.9% NACL(PMX) 400 MCG in EMPTY BAG 1 BAG IV SCH (18:00)
[2017-06-03 18:05] LABS: Glucose,Whole Blood 149 mg/dL (75-99)
--- NOTE | 2017-06-03 18:56 | PN ---
PROGRESS NOTE DATE OF SERVICE: June 02, 2017. PRESENTING COMPLAINT: Status post bypass. INTERVAL HISTORY: This is a patient admitted with acute myocardial infarction that had a cardiac arrest, status post coronary bypass last night, 4-vessel, currently on the ventilator with FiO2 40 and a PEEP of 8. Drips include lactated Ringer's 15, nitro, Diprivan, amiodarone, Levophed, Primacor, and insulin. The patient is intubated. Has [address] REVIEW OF SYSTEMS: The patient is intubated. CURRENT MEDICATIONS: Reviewed as see above. PHYSICAL EXAMINATION: Afebrile, pulse 104, respiratory 18, blood pressure 98/59, pulse ox 97% on ventilator. General appearance: Lying in bed, intubated. Eyes pupil equal, conjunctivae normal. HEENT external appearance of nose and ears normal. Oral cavity endotracheal tube in place. Neck JVD unable to assess. Mass not palpable. Respiratory effort normal. Lungs distant breath sounds. Cardiovascular 1st and 2nd sounds normal. No edema. ABDOMEN: Soft, nontender. Liver and spleen not palpable. Chest, 2 chest tubes are present. INVESTIGATIONS: White count 7, hemoglobin 8.2, hemoglobin 8.7, platelets 107. The BUN and creatinine are normal. Accu-Cheks are noted. Albumin 3. ASSESSMENT: 1. Status post 4 vessel coronary bypass. 2. Coronary artery disease with prior history of stent and acute myocardial infarction on this admission. 3. Obesity. 4. Intermittent asthma. 5. Diabetes mellitus type 2, chronically requiring insulin. 6. Gastroesophageal reflux disease. 7. Hyperlipidemia. 8. Obstructive sleep apnea, using CPAP until recently. 9. Right mastectomy with lumpectomy from breast cancer. 10.Right axillary lesion, being followed as an outpatient. 11.Bilateral nephrolithiasis asymptomatic. 12.Left adrenal nodule 2.4 cm. 13.Hypertensive heart disease. 14.Acute respiratory failure with ventilator assistance. 15.Acute blood-loss anemia as expected from surgery. 16.Dilutional thrombocytopenia. 17.Hypoalbuminemia as an acute phase reactant. PLAN: Continue current medication and treatment plan. Supportive care. Currently no family is at the bedside. Follow. MMODL / IJN: [id number] /
[2017-06-03 19:04] LABS: Glucose,Whole Blood 143 mg/dL (75-99)
[2017-06-03] MEDS ORDERED: ALBUMIN HUMAN 5% 500 ML in EMPTY BAG 1 BAG IVPB ONE (19:46)
[2017-06-03] MEDS: ALBUMIN HUMAN 5% 250 ML in EMPTY BAG 1 BAG IVPB SCH ×2 (20:04→20:30)
[2017-06-03 20:15] LABS: Glucose,Whole Blood 137 mg/dL (75-99)
[2017-06-03 21:11] LABS: Glucose,Whole Blood 122 mg/dL (75-99)
[2017-06-03] MEDS: METOPROLOL TARTRATE 12.5 MG TAB OG-TUBE SCH (21:12)
[2017-06-03] MEDS: SENNOSIDES-DOCUSATE SODIUM 1 EACH TAB PO SCH (21:13)
[2017-06-03 22:17] LABS: ABG Base Excess 1.5 mmol/L; ABG HCO3 25 mmol/L (21-25); ABG Oxygen Saturation 91.4 % (94-97); ABG PCO2 33 mmHg (35-45); ABG PH 7.49 (7.35-7.45); ABG PO2 59 mmHg (83-108); ABG TCO2 26 mmol/L (19-24)
[2017-06-03 22:19] LABS: Glucose,Whole Blood 113 mg/dL (75-99)
[2017-06-03] MEDS ORDERED: HYDROcodone/APAP 5-325MG 1 EACH TAB PO PRN (22:31)
[2017-06-03] MEDS ORDERED: MAGNESIUM HYDROXIDE 2,400 MG/10 ML CUP PO PRN (22:32)
[2017-06-03] MEDS ORDERED: BISACODYL 10 MG SUPP RECTAL PRN (22:32)
[2017-06-03] MEDS ORDERED: IPRATROPIUM-ALBUTEROL 3 ML NEB INHALATION PRN (22:33)
[2017-06-03] MEDS ORDERED: IPRATROPIUM-ALBUTEROL 3 ML NEB INHALATION SCH (22:33)
[2017-06-03 22:50] LABS: Basophils % (A) 0 %; Eosinophils % (A) 0 %; HCT 23.7 % (34.0-46.0); HGB 7.9 gm/dL (11.4-16.0); Lymphocytes # (A) 0.6 k/uL (1.0-4.8); Lymphocytes % (A) 10 %; MCH 28.5 pg (25.0-35.0); MCHC 33.3 g/dL (31.0-37.0); MCV 85.8 fL (80.0-100.0); Mean Platelet Volume 9.2; Monocytes # (A) 0.3 k/uL (0-1.0); Monocytes % (A) 6 %; Neutrophils # (A) 4.7 k/uL (1.3-7.7); Neutrophils % (A) 82 %; Platelet Count 110 k/uL (150-450); Poikilocytosis Slight; RBC 2.76 m/uL (3.80-5.40); RDW 15.6 % (11.5-15.5); WBC 5.7 k/uL (3.8-10.6)
[2017-06-03] MEDS ORDERED: PROPOFOL 100 ML IV ONE (22:52)
[2017-06-03 23:02] LABS: Ionized Calcium 5.2 mg/dL (4.5-5.3)
[2017-06-03 23:05] LABS: Glucose,Whole Blood 124 mg/dL (75-99)
[2017-06-03 23:12] LABS: Albumin 3.2 g/dL (3.5-5.0); Calcium 9.3 mg/dL (8.4-10.2); Phosphorus 3.4 mg/dL (2.5-4.5); Total Bilirubin 1.4 mg/dL (0.2-1.3); Total Protein 4.8 g/dL (6.3-8.2)
[2017-06-03] MEDS: PROPOFOL 1,000 MG in EMPTY BAG 1 BAG IV SCH (23:39)
[2017-06-03] MEDS: LACTATED RINGERS 1,000 ML IV SCH (23:43)
[2017-06-04] LABS: Glucose,Whole Blood 122 mg/dL (75-99)
[2017-06-04 00:59] LABS: Glucose,Whole Blood 119 mg/dL (75-99)
[2017-06-04 02:08] LABS: Glucose,Whole Blood 130 mg/dL (75-99)
[2017-06-04] MEDS: IPRATROPIUM-ALBUTEROL 3 ML NEB INHALATION SCH ×6 (02:37→23:52)
[2017-06-04 03:01] LABS: Glucose,Whole Blood 134 mg/dL (75-99)
[2017-06-04 04:22] LABS: Glucose,Whole Blood 136 mg/dL (75-99)
[2017-06-04 04:23] LABS: Basophils % (A) 0 %; Eosinophils % (A) 0 %; HCT 23.5 % (34.0-46.0); HGB 7.7 gm/dL (11.4-16.0); Hypochromasia Slight; Lymphocytes # (A) 0.6 k/uL (1.0-4.8); Lymphocytes % (A) 10 %; MCH 28.4 pg (25.0-35.0); MCHC 32.7 g/dL (31.0-37.0); MCV 86.8 fL (80.0-100.0); Mean Platelet Volume 9.1; Monocytes # (A) 0.3 k/uL (0-1.0); Monocytes % (A) 5 %; Neutrophils # (A) 4.7 k/uL (1.3-7.7); Neutrophils % (A) 83 %; Platelet Count 113 k/uL (150-450); Poikilocytosis Slight; RBC 2.71 m/uL (3.80-5.40); RDW 15.8 % (11.5-15.5); WBC 5.7 k/uL (3.8-10.6)
[2017-06-04 04:32] LABS: INR 1.2 (<1.2); Prothrombin Time 11.8 sec (9.0-12.0)
[2017-06-04 04:45] LABS: ABG Base Excess 1.8 mmol/L; ABG HCO3 25 mmol/L (21-25); ABG Oxygen Saturation 92.1 % (94-97); ABG PCO2 34 mmHg (35-45); ABG PH 7.48 (7.35-7.45); ABG PO2 62 mmHg (83-108); ABG TCO2 26 mmol/L (19-24)
[2017-06-04 04:47] LABS: Glucose,Whole Blood 113 mg/dL (75-99)
[2017-06-04] MEDS: PROPOFOL 1,000 MG in EMPTY BAG 1 BAG IV SCH ×4 (04:48→23:27)
[2017-06-04 05:14] LABS: Ionized Calcium 5.2 mg/dL (4.5-5.3)
[2017-06-04 05:28] LABS: Calcium 9.1 mg/dL (8.4-10.2); Potassium 3.8 mmol/L (3.5-5.1); Total Bilirubin 1.4 mg/dL (0.2-1.3); Total Protein 4.7 g/dL (6.3-8.2)
[2017-06-04 06:11] LABS: Glucose,Whole Blood 131 mg/dL (75-99)
[2017-06-04] MEDS ORDERED: POTASSIUM BICARBONATE/CIT AC 20 MEQ TABLET.EFF NG-TUBE SCH (07:00)
[2017-06-04 07:12] LABS: Glucose,Whole Blood 133 mg/dL (75-99)
[2017-06-04] MEDS: HEPARIN SODIUM,PORCINE 5,000 UNIT/ML 1 ML VIAL SQ SCH ×4 (08:10→23:25)
[2017-06-04] MEDS: ATORVASTATIN 40 MG TAB PO SCH (08:10)
[2017-06-04] MEDS: ASPIRIN 325 MG TAB PO SCH (08:10)
[2017-06-04] MEDS: METOPROLOL TARTRATE 12.5 MG TAB OG-TUBE SCH ×2 (08:10→21:22)
[2017-06-04] MEDS: CLOPIDOGREL 75 MG TAB PO SCH (08:11)
[2017-06-04] MEDS: PANTOPRAZOLE 40 MG/10 ML VIAL IVP SCH (08:11)
[2017-06-04] MEDS: CHLORHEXIDINE GLUCONATE 15 ML CUP MUCOUS MEM SCH ×2 (08:11→21:23)
[2017-06-04] MEDS: MUPIROCIN 2% OINT 22 GM TUBE NASAL SCH ×2 (08:11→21:23)
--- NOTE | 2017-06-04 08:14 | XR ---
EXAMINATION TYPE: XR chest 1V portable DATE OF EXAM: 06/04/2017 Comparison: 06/03/2017 Clinical History: 66-year-old female tube placement vent management Findings: ET tube and NG tube are satisfactory. Right IJ Alsip-Bouchra catheter in the proximal most right mainstem pulmonary artery. Again sternotomy wires are present with post-CABG clips. Mediastinal drains. Left- sided chest tube. No appreciable pneumothorax. Continued mild diffuse interstitial and vascular promi nence with small pleural effusions and bibasilar densities. Interstitial opacities slightly improved. Impression: 1. Continued CHF with pulmonary vascular congestion, minimally improved in the interval. 2. Small effusions with prominent adjacent atelectasis and/or consolidation persist at the lung bases .
[2017-06-04] MEDS: INSULIN REGULAR 100 UNIT in SODIUM CHLORIDE 0.9% 100 ML IV SCH ×3 (08:15→20:00)
[2017-06-04 08:58] LABS: Glucose,Whole Blood 130 mg/dL (75-99)
--- NOTE | 2017-06-04 09:49 | P.PN ---
Subjective Progress Note Date: 06/04/17 Principal diagnosis: Multivessel coronary artery disease, status post ventricular fibrillation arrest , history of hypertension, hyperlipidemia, insulin dependent diabetes mellitus with preoperative hemoglobin A1c 9.4%, non-ST elevation myocardial infarction this admission and history of previous myocardial infarction with stent placement to the RCA in 2010, preserved left ventricular function with preoperative ejection fraction of 50-55%, mild mitral valve regurgitation, obesity, obstructive sleep apnea, recent pneumonia in March 2017, previous tobacco dependence, right breast cancer with lumpectomy and radiation, chronic obstructive pulmonary disease with preoperative FEV1 of 76% of predicted and preoperative arterial blood gas pH 7.46, pCO2 40, pO2 68, HCO3 28, and family history of premature coronary artery disease. POD #2 coronary artery bypass grafting 4 using the left internal mammary artery to the left anterior descending coronary artery, a reverse greater saphenous vein graft from the aorta to the distal posterior descending coronary artery, a reverse greater saphenous vein graft from the aorta to the ramus intermedius coronary artery, a reverse greater saphenous vein graft from the aorta to the second diagonal coronary artery. Endoscopic harvesting of the right greater saphenous vein. Intraoperative transesophageal echocardiogram and epi-aortic scanning. Intraoperative graft flow measurement using the [employer] system. Status post preoperative acute cardiac arrest with ventricular fibrillation arrest with successful resuscitation. Postoperative prolonged mechanical ventilation secondary to hemodynamic instability, an unexpected but potential outcome of surgery. The patient is currently lying in bed in the intensive care unit. She is in no acute distress. She is currently hemodynamically stable, on norepinephrine at 2 mcg/m. She remains intubated with mechanical ventilator support. Oxygen saturations currently 98%. Sedation using Diprivan at 40 mcg/kg/m remains, opens her eyes with verbal stimuli. Objective - Vital Signs Vital signs: Vital Signs Temp 100 F H 06/04/17 04:00 Pulse 98 06/04/17 06:00 Resp 26 H 06/04/17 04:00 BP 87/56 06/04/17 02:00 Pulse Ox 95 06/04/17 06:00 Intake & Output 06/03/17 06/03/17 06/04/17 06:59 18:59 06:59 Intake Total 0952.963 7472.332 Output Total 1187 980 Balance 422.610 245.332 Weight 121 kg Intake: IV 1173.2 1015.6 0.9 for pressure 102 108 ACETAMINOPHEN IV (For NPO 100 ) 1,000 mg In Empty Bag 1 bag @ 400 mls/hr IVPB Q6HR [facility] Rx#:[id number] Amiodarone 183.7 Amiodarone 450 mg In 167.0 16.7 Dextrose 5% in Water 250 ml @ 1 MG/MIN 34.53 mls/ hr IV .Q7H31M PRN Rx#: [id number] CO/CI 80 120 Lactated Ringers 1,000 ml 215 240 @ 20 mls/hr IV .Q24H [facility] Rx#:[id number] Milrinone-D5w Pmx 20 mg 97.2 97.2 In Dextrose/Water 1 100ml .bag @ Per Protocol IV . Q0M [facility] Rx#:[id number] Nitroglycerin-D5w Pmx 50 12.0 mg In Dextrose/Water 1 250ml.bag @ 5 MCG/MIN 1.5 mls/hr IV .Q24H ONE Rx#: [id number] Potassium Chloride 10 meq 400 In Sodium Chloride 0.9% 100 ml @ 100 mls/hr IV Q1H [facility] Rx#:[id number] Potassium Chloride 10 meq In Sodium Chloride 0.9% 100 ml @ 105 mls/hr IVPB Q1H [facility] Rx#:[id number] Vancomycin 1,750 mg In 250 Sodium Chloride 0.9% 250 ml @ 125 mls/hr IVPB Q16H [facility] Rx#:[id number] Intake, IV Titration 436.410 209.732 Amount Amiodarone 450 mg In 259 Dextrose 5% in Water 250 ml @ 1 MG/MIN 34.53 mls/ hr IV .Q7H31M PRN Rx#: [id number] Dexmedetomidine/0.9% NaCl 56.715 (Pmx) 400 mcg In Empty Bag 1 bag @ Titrate IV . Q0M [facility] Rx#:[id number] Insulin Regular 100 unit 140.826 20.091 In Sodium Chloride 0.9% 100 ml @ Per Protocol IV .Q0M [facility] Rx#:[id number] Milrinone-D5w Pmx 20 mg 5.58 In Dextrose/Water 1 100ml .bag @ Per Protocol IV . Q0M [facility] Rx#:[id number] Norepinephrin 16 mg-0.9% 7.551 27.346 Ns Pmx 16 mg In 250 ml @ Titrate IV .Q0M [facility] Rx#: [id number] Propofol 1,000 mg In 29.033 Empty Bag 1 bag @ Titrate IV .Q0M [facility] Rx#: [id number] Propofol 1,000 mg In 100.000 Empty Bag 1 bag @ Titrate IV .Q0M [facility] Rx#: [id number] Blood Product Rc As-1 Unit [id number] Rc As-1 Unit [id number] Output: Chest Tube Drainage 312 300 Chest Tube Left Pleural/ 32 Mediastinal Chest Tube Right 5 Mediastinal Mediastinal 55 10 left pleural 220 290 Gastric Drainage 200 100 Drainage 35 150 Right Lower Medial Calf 35 150 Urine 640 430 Estimated Blood Loss Other: Voiding Method Indwelling Catheter Indwelling Catheter # Voids 2 # Bowel Movements 0 ABP, PAP, CO, CI - Last Documented Arterial Blood Pressure 109/53 Pulmonary Artery Pressure 25/20 Cardiac Output 6.8 Cardiac Index 3.3 - Exam The patient remains intubated with mechanical ventilator support. She is currently sedated with Diprivan at 40 mcg/kg/m. She opens up her eyes to verbal stimuli, not moving any extremities at this time on current sedation level. - Constitutional General appearance: Present: no acute distress, obese - EENT Eyes: Present: PERRLA - Neck Details: No JVD, no lymphadenopathy, neck is supple. Right IJ Cordis with Rocklin-Bouchra catheter in place and functioning. - Respiratory Details: Lung sounds with coarse rhonchi throughout, diminished bilateral bases. Respirations are symmetrical and unlabored with mechanical ventilator support. Current ventilator settings are as follows: AC 18, TV 500, FiO2 60%, PEEP 8. Oxygen saturations are 98% with current vent settings. Mediastinal and left pleural chest tubes without air leak. Chest tubes remained to low continuous wall suction -20 cm H2O. Draining thin serosanguineous drainage. Mediastinal chest tube with 45 mL output in the last 24 hours. Left pleural chest tube with 150 mL output in the last 8 hours, 600 mL output in the last 24 hours. - Cardiovascular Details: Regular rhythm and rate. S1 and S2 present, negative for S3, gallop or murmur. Sternum is stable. Bedside telemetry showing normal sinus rhythm with bundle branch block and occasional PVC, heart rate 96. Heart hugger's in place. Atrial and ventricular epicardial pacemaker wires intact and hooked up to a backup bedside pacemaker generator. Knee-high DIVINE hose and sequential compression devices in place to her bilateral lower extremities. +1 edema to her bilateral lower extremity Osbaldo. Left femoral A-line intact, patent and functioning. Right IJ Cordis with Rocklin-Bouchra catheter in place and functioning. Current CO 6.8, CI 3.3, PA pressures 37/22, CVP 15. - Gastrointestinal Gastrointestinal Comment(s): Abdomen is soft, nontender, nondistended. Hypoactive bowel sounds to all 4 abdominal quadrants. OG tube in place draining bile colored drainage, 100 mL output in the last 8 hours, 300 mL output in the last 24 hours. - Genitourinary Genitourinary Comment(s): Lea catheter for accurate I&O. Draining clear yellow urine. 300 mL output in the last 8 hours. Lasix 40 mg IV 1 given yesterday. - Integumentary Integumentary Comment(s): Skin is warm and dry. No cyanosis or clubbing. Midline sternal incision clean dry and well approximated. No drainage or redness present. Dermabond dressing clean and dry. Right leg EVH site clean and dry. No drainage or redness present. DREW drain in place draining thin serosanguineous drainage. 35 mL output in the last 8 hours, 185 mL output in the last 24 hours. - Neurologic Neurologic Comment(s): Patient remains sedated with Diprivan drip at this time opens eyes to verbal stimuli. - Musculoskeletal Musculoskeletal: Present: generalized weakness - Allied health notes Allied health notes reviewed: nursing - Labs CBC & Chem 7: 06/04/17 04:10 06/04/17 04:10 Labs: Abnormal Lab Results - Last 24 Hours (Table) 06/02/17 06/03/17 06/03/17 Range/Units 11:09 07:04 08:16 RBC (3.80-5.40) m/uL Hgb (11.4-16.0) gm/dL Hct (34.0-46.0) % RDW (11.5-15.5) % Plt Count (150-450) k/uL Lymphocytes # (1.0-4.8) k/uL INR (<1.2) ABG pH (7.35-7.45) ABG pCO2 (35-45) mmHg ABG pO2 (83-108) mmHg ABG HCO3 (21-25) mmol/L ABG Total CO2 (19-24) mmol/L ABG O2 Saturation (94-97) % Sodium (137-145) mmol/L Chloride (98-107) mmol/L BUN (7-17) mg/dL Creatinine (0.52-1.04) mg/dL Glucose (74-99) mg/dL POC Glucose (mg/dL) 156 H 151 H (75-99) mg/dL Total Bilirubin (0.2-1.3) mg/dL AST (14-36) U/L ALT (9-52) U/L Alkaline Phosphatase (38-126) U/L Total Protein (6.3-8.2) g/dL Albumin (3.5-5.0) g/dL Crossmatch See Detail 06/03/17 06/03/17 06/03/17 Range/Units 09:04 10:12 11:03 RBC (3.80-5.40) m/uL Hgb (11.4-16.0) gm/dL Hct (34.0-46.0) % RDW (11.5-15.5) % Plt Count (150-450) k/uL Lymphocytes # (1.0-4.8) k/uL INR (<1.2) ABG pH (7.35-7.45) ABG pCO2 (35-45) mmHg ABG pO2 (83-108) mmHg ABG HCO3 (21-25) mmol/L ABG Total CO2 (19-24) mmol/L ABG O2 Saturation (94-97) % Sodium (137-145) mmol/L Chloride (98-107) mmol/L BUN (7-17) mg/dL Creatinine (0.52-1.04) mg/dL Glucose (74-99) mg/dL POC Glucose (mg/dL) 152 H 144 H 151 H (75-99) mg/dL Total Bilirubin (0.2-1.3) mg/dL AST (14-36) U/L ALT (9-52) U/L Alkaline Phosphatase (38-126) U/L Total Protein (6.3-8.2) g/dL Albumin (3.5-5.0) g/dL Crossmatch 06/03/17 06/03/17 06/03/17 Range/Units 11:53 13:04 14:15 RBC (3.80-5.40) m/uL Hgb (11.4-16.0) gm/dL Hct (34.0-46.0) % RDW (11.5-15.5) % Plt Count (150-450) k/uL Lymphocytes # (1.0-4.8) k/uL INR (<1.2) ABG pH (7.35-7.45) ABG pCO2 (35-45) mmHg ABG pO2 (83-108) mmHg ABG HCO3 (21-25) mmol/L ABG Total CO2 (19-24) mmol/L ABG O2 Saturation (94-97) % Sodium (137-145) mmol/L Chloride (98-107) mmol/L BUN (7-17) mg/dL Creatinine (0.52-1.04) mg/dL Glucose (74-99) mg/dL POC Glucose (mg/dL) 138 H 142 H 140 H (75-99) mg/dL Total Bilirubin (0.2-1.3) mg/dL AST (14-36) U/L ALT (9-52) U/L Alkaline Phosphatase (38-126) U/L Total Protein (6.3-8.2) g/dL Albumin (3.5-5.0) g/dL Crossmatch 06/03/17 06/03/17 06/03/17 Range/Units 14:59 16:09 16:18 RBC (3.80-5.40) m/uL Hgb (11.4-16.0) gm/dL Hct (34.0-46.0) % RDW (11.5-15.5) % Plt Count (150-450) k/uL Lymphocytes # (1.0-4.8) k/uL INR (<1.2) ABG pH 7.47 H (7.35-7.45) ABG pCO2 (35-45) mmHg ABG pO2 64 L (83-108) mmHg ABG HCO3 27 H (21-25) mmol/L ABG Total CO2 28 H (19-24) mmol/L ABG O2 Saturation 93.8 L (94-97) % Sodium (137-145) mmol/L Chloride (98-107) mmol/L BUN (7-17) mg/dL Creatinine (0.52-1.04) mg/dL Glucose (74-99) mg/dL POC Glucose (mg/dL) 136 H 136 H (75-99) mg/dL Total Bilirubin (0.2-1.3) mg/dL AST (14-36) U/L ALT (9-52) U/L Alkaline Phosphatase (38-126) U/L Total Protein (6.3-8.2) g/dL Albumin (3.5-5.0) g/dL Crossmatch 06/03/17 06/03/17 06/03/17 Range/Units 17:07 18:02 19:02 RBC (3.80-5.40) m/uL Hgb (11.4-16.0) gm/dL Hct (34.0-46.0) % RDW (11.5-15.5) % Plt Count (150-450) k/uL Lymphocytes # (1.0-4.8) k/uL INR (<1.2) ABG pH (7.35-7.45) ABG pCO2 (35-45) mmHg ABG pO2 (83-108) mmHg ABG HCO3 (21-25) mmol/L ABG Total CO2 (19-24) mmol/L ABG O2 Saturation (94-97) % Sodium (137-145) mmol/L Chloride (98-107) mmol/L BUN (7-17) mg/dL Creatinine (0.52-1.04) mg/dL Glucose (74-99) mg/dL POC Glucose (mg/dL) 140 H 149 H 143 H (75-99) mg/dL Total Bilirubin (0.2-1.3) mg/dL AST (14-36) U/L ALT (9-52) U/L Alkaline Phosphatase (38-126) U/L Total Protein (6.3-8.2) g/dL Albumin (3.5-5.0) g/dL Crossmatch 06/03/17 06/03/17 06/03/17 Range/Units 20:14 20:58 21:58 RBC (3.80-5.40) m/uL Hgb (11.4-16.0) gm/dL Hct (34.0-46.0) % RDW (11.5-15.5) % Plt Count (150-450) k/uL Lymphocytes # (1.0-4.8) k/uL INR (<1.2) ABG pH (7.35-7.45) ABG pCO2 (35-45) mmHg ABG pO2 (83-108) mmHg ABG HCO3 (21-25) mmol/L ABG Total CO2 (19-24) mmol/L ABG O2 Saturation (94-97) % Sodium (137-145) mmol/L Chloride (98-107) mmol/L BUN (7-17) mg/dL Creatinine (0.52-1.04) mg/dL Glucose (74-99) mg/dL POC Glucose (mg/dL) 137 H 122 H 113 H (75-99) mg/dL Total Bilirubin (0.2-1.3) mg/dL AST (14-36) U/L ALT (9-52) U/L Alkaline Phosphatase (38-126) U/L Total Protein (6.3-8.2) g/dL Albumin (3.5-5.0) g/dL Crossmatch 06/03/17 06/03/17 06/03/17 Range/Units 22:14 22:20 22:20 RBC 2.76 L (3.80-5.40) m/uL Hgb 7.9 L (11.4-16.0) gm/dL Hct 23.7 L (34.0-46.0) % RDW 15.6 H (11.5-15.5) % Plt Count 110 L (150-450) k/uL Lymphocytes # 0.6 L (1.0-4.8) k/uL INR (<1.2) ABG pH 7.49 H (7.35-7.45) ABG pCO2 33 L (35-45) mmHg ABG pO2 59 L (83-108) mmHg ABG HCO3 (21-25) mmol/L ABG Total CO2 26 H (19-24) mmol/L ABG O2 Saturation 91.4 L (94-97) % Sodium 146 H (137-145) mmol/L Chloride 111 H (98-107) mmol/L BUN 18 H (7-17) mg/dL Creatinine 1.20 H (0.52-1.04) mg/dL Glucose 128 H (74-99) mg/dL POC Glucose (mg/dL) (75-99) mg/dL Total Bilirubin 1.4 H (0.2-1.3) mg/dL AST 91 H (14-36) U/L ALT (9-52) U/L Alkaline Phosphatase 35 L (38-126) U/L Total Protein 4.8 L (6.3-8.2) g/dL Albumin 3.2 L (3.5-5.0) g/dL Crossmatch 06/03/17 06/03/17 06/04/17 Range/Units 23:03 23:58 00:58 RBC (3.80-5.40) m/uL Hgb (11.4-16.0) gm/dL Hct (34.0-46.0) % RDW (11.5-15.5) % Plt Count (150-450) k/uL Lymphocytes # (1.0-4.8) k/uL INR (<1.2) ABG pH (7.35-7.45) ABG pCO2 (35-45) mmHg ABG pO2 (83-108) mmHg ABG HCO3 (21-25) mmol/L ABG Total CO2 (19-24) mmol/L ABG O2 Saturation (94-97) % Sodium (137-145) mmol/L Chloride (98-107) mmol/L BUN (7-17) mg/dL Creatinine (0.52-1.04) mg/dL Glucose (74-99) mg/dL POC Glucose (mg/dL) 124 H 122 H 119 H (75-99) mg/dL Total Bilirubin (0.2-1.3) mg/dL AST (14-36) U/L ALT (9-52) U/L Alkaline Phosphatase (38-126) U/L Total Protein (6.3-8.2) g/dL Albumin (3.5-5.0) g/dL Crossmatch 06/04/17 06/04/17 06/04/17 Range/Units 02:06 02:59 04:03 RBC (3.80-5.40) m/uL Hgb (11.4-16.0) gm/dL Hct (34.0-46.0) % RDW (11.5-15.5) % Plt Count (150-450) k/uL Lymphocytes # (1.0-4.8) k/uL INR (<1.2) ABG pH (7.35-7.45) ABG pCO2 (35-45) mmHg ABG pO2 (83-108) mmHg ABG HCO3 (21-25) mmol/L ABG Total CO2 (19-24) mmol/L ABG O2 Saturation (94-97) % Sodium (137-145) mmol/L Chloride (98-107) mmol/L BUN (7-17) mg/dL Creatinine (0.52-1.04) mg/dL Glucose (74-99) mg/dL POC Glucose (mg/dL) 130 H 134 H 136 H (75-99) mg/dL Total Bilirubin (0.2-1.3) mg/dL AST (14-36) U/L ALT (9-52) U/L Alkaline Phosphatase (38-126) U/L Total Protein (6.3-8.2) g/dL Albumin (3.5-5.0) g/dL Crossmatch 06/04/17 06/04/17 06/04/17 Range/Units 04:10 04:10 04:10 RBC 2.71 L (3.80-5.40) m/uL Hgb 7.7 L (11.4-16.0) gm/dL Hct 23.5 L (34.0-46.0) % RDW 15.8 H (11.5-15.5) % Plt Count 113 L (150-450) k/uL Lymphocytes # 0.6 L (1.0-4.8) k/uL INR 1.2 H (<1.2) ABG pH (7.35-7.45) ABG pCO2 (35-45) mmHg ABG pO2 (83-108) mmHg ABG HCO3 (21-25) mmol/L ABG Total CO2 (19-24) mmol/L ABG O2 Saturation (94-97) % Sodium 147 H (137-145) mmol/L Chloride 112 H (98-107) mmol/L BUN 20 H (7-17) mg/dL Creatinine 1.21 H (0.52-1.04) mg/dL Glucose 132 H (74-99) mg/dL POC Glucose (mg/dL) (75-99) mg/dL Total Bilirubin 1.4 H (0.2-1.3) mg/dL AST 95 H (14-36) U/L ALT 57 H (9-52) U/L Alkaline Phosphatase (38-126) U/L Total Protein 4.7 L (6.3-8.2) g/dL Albumin 3.0 L (3.5-5.0) g/dL Crossmatch 06/04/17 06/04/17 06/04/17 Range/Units 04:41 04:45 06:01 RBC (3.80-5.40) m/uL Hgb (11.4-16.0) gm/dL Hct (34.0-46.0) % RDW (11.5-15.5) % Plt Count (150-450) k/uL Lymphocytes # (1.0-4.8) k/uL INR (<1.2) ABG pH 7.48 H (7.35-7.45) ABG pCO2 34 L (35-45) mmHg ABG pO2 62 L (83-108) mmHg ABG HCO3 (21-25) mmol/L ABG Total CO2 26 H (19-24) mmol/L ABG O2 Saturation 92.1 L (94-97) % Sodium (137-145) mmol/L Chloride (98-107) mmol/L BUN (7-17) mg/dL Creatinine (0.52-1.04) mg/dL Glucose (74-99) mg/dL POC Glucose (mg/dL) 113 H 131 H (75-99) mg/dL Total Bilirubin (0.2-1.3) mg/dL AST (14-36) U/L ALT (9-52) U/L Alkaline Phosphatase (38-126) U/L Total Protein (6.3-8.2) g/dL Albumin (3.5-5.0) g/dL Crossmatch - Imaging and Cardiology Chest x-ray: report reviewed, image reviewed Assessment and Plan (1) History of right breast cancer Current Visit: Yes Status: Acute Code(s): Z85.3 - PERSONAL HISTORY OF MALIGNANT NEOPLASM OF BREAST SNOMED Code(s): 092145185 (2) Non-STEMI (non-ST elevated myocardial infarction) Current Visit: Yes Status: Acute Code(s): I21.4 - NON-ST ELEVATION (NSTEMI) MYOCARDIAL INFARCTION SNOMED Code(s): 029584522 (3) Diabetes mellitus Current Visit: Yes Status: Chronic Code(s): E11.9 - TYPE 2 DIABETES MELLITUS WITHOUT COMPLICATIONS SNOMED Code(s): 86385982 (4) Family history of premature coronary artery disease Current Visit: Yes Status: Chronic Code(s): Z82.49 - FAMILY HX OF ISCHEM HEART DIS AND OTH DIS OF THE CIRC SYS SNOMED Code(s): 241272401 (5) History of heart artery stent Current Visit: Yes Status: Chronic Code(s): Z95.5 - PRESENCE OF CORONARY ANGIOPLASTY IMPLANT AND GRAFT SNOMED Code(s): 571889129 (6) Hyperlipidemia Current Visit: Yes Status: Chronic Code(s): E78.5 - HYPERLIPIDEMIA, UNSPECIFIED SNOMED Code(s): 00205293 (7) Hypertension Current Visit: Yes Status: Chronic Code(s): I10 - ESSENTIAL (PRIMARY) HYPERTENSION SNOMED Code(s): 67883980 (8) Morbid obesity with BMI of 40.0-44.9, adult Current Visit: Yes Status: Chronic Code(s): E66.01 - MORBID (SEVERE) OBESITY DUE TO EXCESS CALORIES; Z68.41 - BODY MASS INDEX (BMI) 40.0-44.9, ADULT SNOMED Code(s): 002969392 (9) History of sudden cardiac arrest successfully resuscitated Current Visit: Yes Status: Acute Code(s): Z86.74 - PERSONAL HISTORY OF SUDDEN CARDIAC ARREST SNOMED Code(s): 551116143 Plan: 1. Continue aspirin, Plavix, statin, metoprolol 12.5 mg per OG tube twice a day and subcu heparin. We will increase beta doretha as tolerated. 2. Consult dietitian for tube feed recommendations. 3. Wean norepinephrine drip to keep blood pressure greater than 100 mmHg systolic. 4. Decrease Primacor to 0.1 mcg/kg/m and leave running until extubated. 5. Mechanical ventilator management and recommendations per pulmonary medicine. 6. Medical management and insulin management per primary care service. 7. DVT and GI prophylaxis. Knee-high DIVINE hose and sequential compression devices in place. 8. Continue amiodarone drip, prophylaxis for ventricular arrhythmias. 9. We will remove her mediastinal chest tube today, keep her left pleural chest tube in place to low continuous wall suction -20 cm H2O. 10. Replace potassium per protocol. 11. Monitor daily labs and chest x-rays. 12. More recommendations to follow as the patient progresses in her care. Time with Patient: Greater than 30
[2017-06-04 10:24] LABS: Glucose,Whole Blood 130 mg/dL (75-99)
[2017-06-04 11:31] LABS: HCT 23.3 % (34.0-46.0); HGB 7.7 gm/dL (11.4-16.0); MCH 28.6 pg (25.0-35.0); MCHC 32.9 g/dL (31.0-37.0); MCV 86.8 fL (80.0-100.0); Mean Platelet Volume 8.7; Platelet Count 133 k/uL (150-450); Poikilocytosis Slight; RBC 2.68 m/uL (3.80-5.40); RDW 15.7 % (11.5-15.5); WBC 6.6 k/uL (3.8-10.6)
[2017-06-04] MEDS: VANCOMYCIN 1,750 MG in SODIUM CHLORIDE 0.9% 250 ML IVPB SCH (11:45)
--- NOTE | 2017-06-04 12:14 | P.PN ---
Subjective Progress Note Date: 06/04/17 Principal diagnosis: Acute cardiac arrest, ventricular fibrillation, status post CPR. On today's evaluation of 05/30/2017 the patient is being seen in follow-up. The patient is resting comfortably in bed. Noted the patient was seen yesterday for a preoperative cardiac clearance. I had a lengthy discussion with her. The patient has morbid obesity, COPD and addition to severe obstructive sleep apnea. The patient with kidney and increased risk of developing postoperative pulmonary complications should thoracotomy and bypass surgery is done. Nevertheless, weighing the risks and benefits, the patient should be able to undertake these risks. For now the patient IV heparin. Her troponins came back positive at 0.038, 0.035 and 0.0 26. The patient's family chest pain for now. CV surgery is on the case. The patient is off Plavix. The patient is being considered for coronary artery bypass surgery next week. She is hemodynamically stable at this point. No cough sputum production or chest that is so wheezing. She tells me that her BiPAP machine was taken away from her as the patient did not demonstrate adequate data as she was hospitalized for pneumonia. Her pneumonia essentially cleared showed no parenchymal lung abnormalities. There is no mediastinal lymphadenopathy. There was a large right axillary lesion measuring 6.5 x 4.8 cm in size ejection of a cyst with overlying scar. Her was a small right-sided pleural effusion with some mild atelectatic changes and mild diffuse bronchial wall thickening without consolidation, and there is a l small hiatal hernia. A 2.4 cm left of the nodule was also seen which is a adenoma and the patient has compression deformity of the level of T11. On 05/31/2017 the patient is free of any chest pain. The patient remains on IV heparin. She'll be kept in the hospital awaiting her surgery. The patient had a blood gases on room air and she demonstrated pH of 7.46 with a pCO2 of 40 and pO2 of 68 and this was done on room air. The cyst in her right axilla was noted. Apparently this was drained on multiple occasions by general surgery and she tells that there is no evidence of any malignancy found on previous drainage procedures. I discussed the case with interventional radiology. We found that there was no need to repeated drainages long as the patient has been drained in the past and the structures of the cystic rather than malignant or solids. On 06/01/2017, the patient is stable and the patient has no new complaints. Simply of any chest pain. She is ambulating. 95% pulse ox on 3 selection by nasal cannula. She is afebrile. No cardiac arrhythmias. No other complaints otherwise for now. Tentative plan is to proceed with surgery next week. On 06/02/2017, the patient is being seen him follow-up. Currently she is interested intensive care unit intubated on a mechanical ventilator. The events that occurred overnight was noted. The patient acutely went into V. fib at around 10:00 and the patient received CPR and defibrillation. The exact downtime was less than 5 minutes. The patient received a total of 2 defibrillation 3 rounds of epinephrine. There was return of spontaneous circulation. The patient was intubated and brought to the intensive care unit. This morning she is sedated With Diprivan and currently Diprivan is running at 50 mics. I was told that the patient was able to follow commands following her cardiac arrest and neurologically seems to be intact despite his underlying cardiac arrest. The patient is on no pressors. Currently she is on assist control mode of ventilation at the rate of 16, tidal volume of 450, FiO2 of 60% and a PEEP of 5. The patient's pH is at 7.39 with a pCO2 of 41 and pO2 of 117. Chest x-ray shows adequate positioning of the ET tube. The patient also has a orogastric tube in place. She is nothing by mouth for now. She has adequate pulses in all 4 extremities. She is calm and comfortable. She is producing urine output in the order of 100 mL an hour. No further cardiac arrhythmias have been noted. The patient was given amiodarone bolus 10 mg and currently she is on a maintenance amiodarone of 0.5 mg/m. Rest of the blood pressure medications are on hold. Beta doretha was given this morning and the patient received Lopressor 25 mg orally. The case was discussed with cardiothoracic surgery. It seems that the patient will need emergent coronary artery bypass surgery and the patient will be taken to the operating room today. On 06/03/2017 I'm seeing this patient for a follow-up. The patient underwent four-vessel bypass surgery. This was done in the afternoon yesterday and the patient arrived back to the intensive care unit around 11 PM. Preoperatively, there has been difficulties with oxygenation and metabolic acidosis. Overall the patient received a total of 6 bicarb amps and the patient arrived to the intensive care unit quite stable on 7 mics of norepinephrine infusion and 1 g of epinephrine infusion.. She was producing adequate amount of urine output and she was hemodynamically stable. Necessary vent changes were done overnight and this morning the patient is on a assist-control mode at the rate of 18, tidal volume of 550, FiO2 has been weaned down to 60% and the current PEEP is at 10. Most recent blood gases showed a pH of 7.46 with a pCO2 of 38 and pO2 of 84 and this was done and FiO2 of 80%. Chest x-ray shows adequate expansion of both lungs. Lung volumes are small. ET tube is in a good location. The patient has 2 chest tubes 1 mediastinal and 1 pleural. No evidence of any pneumothorax. NG tube is in a good location. This morning, the patient is sedated with Diprivan and she is calm and comfortable. We have noted some increased activity in the right upper extremity compared to the left. Note that she is a post cardiac arrest. Mental status was checked preoperatively and she was following some simple commands. In any rate, she is still on Diprivan and Diprivan will be continued as long as the patient is not ready to wean yet. This morning she is on 2 mics of norepinephrine infusion. Cardiac index is at 2.4. Her PA pressures around 35/26, and the chest tube output has been 170 mL from the left pleural and 50s on the mediastinal. No evidence of any air leak. We will lobe and this morning is at 8.7. Correlation profile shows an INR of 1.3 with a PTT of 68. IV heparin was discontinued. Patient was evaluated today on 06/04/2017, remains on mechanical ventilation, her ventilator settings are FiO2 of 65%, tidal volume of 500 assist control rate of 18 and PEEP of 8. ABG showed a pO2 of 62 pCO2 of 34 pH of 7.48. Hence the FiO2 was increased from 60% to 65% and PEEP was increased to 8 as above. Rest of the labs were reviewed the seem to be relatively unremarkable. Chest x- ray showed what seems to be a left lower lobe consolidation. And atelectasis. Hemoglobin is 7.7. Her last echocardiogram showed good LV function. Patient remains on inotropes, but minimal doses. Remains on amiodarone, and she is also on insulin. Chest x-ray showed minimal pulmonary vascular congestion, and atelectasis mostly at the left base. Objective - Vital Signs Vital signs: Vital Signs Temp 100 F H 06/04/17 04:00 Pulse 105 H 06/04/17 11:30 Resp 26 H 06/04/17 11:30 BP 87/56 06/04/17 02:00 Pulse Ox 97 06/04/17 11:32 Intake & Output 06/03/17 06/04/17 06/04/17 18:59 06:59 18:59 Intake Total 0699.266 7143.332 872.869 Output Total 1187 980 385 Balance 422.610 245.332 487.869 Weight 121 kg 121 kg Intake: IV 1173.2 1015.6 439.8 0.9 for pressure 102 108 45 ACETAMINOPHEN IV (For NPO 100 ) 1,000 mg In Empty Bag 1 bag @ 400 mls/hr IVPB Q6HR [facility] Rx#:[id number] Amiodarone 183.7 16.7 Amiodarone 450 mg In 167.0 16.7 Dextrose 5% in Water 250 ml @ 1 MG/MIN 34.53 mls/ hr IV .Q7H31M PRN Rx#: [id number] CO/CI 80 120 20 Lactated Ringers 1,000 ml 215 240 100 @ 20 mls/hr IV .Q24H [facility] Rx#:[id number] Milrinone-D5w Pmx 20 mg 97.2 97.2 8.1 In Dextrose/Water 1 100ml .bag @ Per Protocol IV . Q0M [facility] Rx#:[id number] Nitroglycerin-D5w Pmx 50 12.0 mg In Dextrose/Water 1 250ml.bag @ 5 MCG/MIN 1.5 mls/hr IV .Q24H ONE Rx#: [id number] Potassium Chloride 10 meq 400 In Sodium Chloride 0.9% 100 ml @ 100 mls/hr IV Q1H [facility] Rx#:[id number] Vancomycin 1,750 mg In 250 250 Sodium Chloride 0.9% 250 ml @ 125 mls/hr IVPB Q16H [facility] Rx#:[id number] Intake, IV Titration 436.410 209.732 313.069 Amount Amiodarone 450 mg In 259 Dextrose 5% in Water 250 ml @ 1 MG/MIN 34.53 mls/ hr IV .Q7H31M PRN Rx#: [id number] Dexmedetomidine/0.9% NaCl 56.715 (Pmx) 400 mcg In Empty Bag 1 bag @ Titrate IV . Q0M [facility] Rx#:[id number] Insulin Regular 100 unit 140.826 20.091 103.975 In Sodium Chloride 0.9% 100 ml @ Per Protocol IV .Q0M [facility] Rx#:[id number] Milrinone-D5w Pmx 20 mg 5.58 100 In Dextrose/Water 1 100ml .bag @ Per Protocol IV . Q0M [facility] Rx#:[id number] Norepinephrin 16 mg-0.9% 7.551 27.346 9.094 Ns Pmx 16 mg In 250 ml @ Titrate IV .Q0M [facility] Rx#: [id number] Propofol 1,000 mg In 29.033 Empty Bag 1 bag @ Titrate IV .Q0M [facility] Rx#: [id number] Propofol 1,000 mg In 100.000 100 Empty Bag 1 bag @ Titrate IV .Q0M [facility] Rx#: [id number] Other 120 Output: Chest Tube Drainage 312 300 115 Chest Tube Left Pleural/ 32 Mediastinal Chest Tube Right 5 Mediastinal Mediastinal 55 10 0 left pleural 220 290 115 Gastric Drainage 200 100 Drainage 35 150 40 Right Lower Medial Calf 35 150 40 Urine 640 430 230 Other: Voiding Method Indwelling Catheter Indwelling Catheter Indwelling Catheter # Voids 2 # Bowel Movements 0 0 ABP, PAP, CO, CI - Last Documented Arterial Blood Pressure 104/53 Pulmonary Artery Pressure 28/18 Cardiac Output 5.3 Cardiac Index 2.5 - Exam - Exam Physical examination revealed a 66-year-old female, on mechanical ventilation, sedated, in no distress. - Constitutional General appearance: Does not seem to be in any form of distress., On mechanical ventilation. - EENT Eyes: PERRLA, EOMI. - Neck Details: Neck is supple, no neck masses, no thyromegaly, lives in the neck were noted endotracheal tube is intact. - Respiratory Details: Lung sounds with coarse rhonchi throughout, diminished bilateral bases. Respirations are symmetrical and unlabored with mechanical ventilator support. Mediastinal and left pleural chest tubes without air leak. Chest tubes remained to low continuous wall suction -20 cm H2O. - Cardiovascular Details: Regular rhythm and rate. S1 and S2 present, negative for S3, gallop or murmur. Sternum is stable. Bedside telemetry showing normal sinus rhythm with bundle branch block and occasional PVC, heart rate 96. Heart hugger's in place. Atrial and ventricular epicardial pacemaker wires intact and hooked up to a backup bedside pacemaker generator. - Gastrointestinal Gastrointestinal Comment(s): Soft nontender no megaly no rebound no guarding, positive bowel sounds. - Genitourinary Genitourinary Comment(s): Lea catheter for accurate I&O. - Integumentary Integumentary Comment(s): Skin is warm and dry. No cyanosis or clubbing. - Neurologic Neurologic Comment(s): Patient remains sedated with Diprivan drip at this time cannot be assessed. - Musculoskeletal Musculoskeletal: Cannot be assessed. - Labs CBC & Chem 7: 06/04/17 11:15 06/04/17 11:15 Labs: Abnormal Lab Results - Last 24 Hours (Table) 06/02/17 06/03/17 06/03/17 Range/Units 11:09 13:04 14:15 RBC (3.80-5.40) m/uL Hgb (11.4-16.0) gm/dL Hct (34.0-46.0) % RDW (11.5-15.5) % Plt Count (150-450) k/uL Lymphocytes # (1.0-4.8) k/uL INR (<1.2) ABG pH (7.35-7.45) ABG pCO2 (35-45) mmHg ABG pO2 (83-108) mmHg ABG HCO3 (21-25) mmol/L ABG Total CO2 (19-24) mmol/L ABG O2 Saturation (94-97) % Sodium (137-145) mmol/L Chloride (98-107) mmol/L BUN (7-17) mg/dL Creatinine (0.52-1.04) mg/dL Glucose (74-99) mg/dL POC Glucose (mg/dL) 142 H 140 H (75-99) mg/dL Total Bilirubin (0.2-1.3) mg/dL AST (14-36) U/L ALT (9-52) U/L Alkaline Phosphatase (38-126) U/L Total Protein (6.3-8.2) g/dL Albumin (3.5-5.0) g/dL Crossmatch See Detail 06/03/17 06/03/17 06/03/17 Range/Units 14:59 16:09 16:18 RBC (3.80-5.40) m/uL Hgb (11.4-16.0) gm/dL Hct (34.0-46.0) % RDW (11.5-15.5) % Plt Count (150-450) k/uL Lymphocytes # (1.0-4.8) k/uL INR (<1.2) ABG pH 7.47 H (7.35-7.45) ABG pCO2 (35-45) mmHg ABG pO2 64 L (83-108) mmHg ABG HCO3 27 H (21-25) mmol/L ABG Total CO2 28 H (19-24) mmol/L ABG O2 Saturation 93.8 L (94-97) % Sodium (137-145) mmol/L Chloride (98-107) mmol/L BUN (7-17) mg/dL Creatinine (0.52-1.04) mg/dL Glucose (74-99) mg/dL POC Glucose (mg/dL) 136 H 136 H (75-99) mg/dL Total Bilirubin (0.2-1.3) mg/dL AST (14-36) U/L ALT (9-52) U/L Alkaline Phosphatase (38-126) U/L Total Protein (6.3-8.2) g/dL Albumin (3.5-5.0) g/dL Crossmatch 06/03/17 06/03/17 06/03/17 Range/Units 17:07 18:02 19:02 RBC (3.80-5.40) m/uL Hgb (11.4-16.0) gm/dL Hct (34.0-46.0) % RDW (11.5-15.5) % Plt Count (150-450) k/uL Lymphocytes # (1.0-4.8) k/uL INR (<1.2) ABG pH (7.35-7.45) ABG pCO2 (35-45) mmHg ABG pO2 (83-108) mmHg ABG HCO3 (21-25) mmol/L ABG Total CO2 (19-24) mmol/L ABG O2 Saturation (94-97) % Sodium (137-145) mmol/L Chloride (98-107) mmol/L BUN (7-17) mg/dL Creatinine (0.52-1.04) mg/dL Glucose (74-99) mg/dL POC Glucose (mg/dL) 140 H 149 H 143 H (75-99) mg/dL Total Bilirubin (0.2-1.3) mg/dL AST (14-36) U/L ALT (9-52) U/L Alkaline Phosphatase (38-126) U/L Total Protein (6.3-8.2) g/dL Albumin (3.5-5.0) g/dL Crossmatch 06/03/17 06/03/17 06/03/17 Range/Units 20:14 20:58 21:58 RBC (3.80-5.40) m/uL Hgb (11.4-16.0) gm/dL Hct (34.0-46.0) % RDW (11.5-15.5) % Plt Count (150-450) k/uL Lymphocytes # (1.0-4.8) k/uL INR (<1.2) ABG pH (7.35-7.45) ABG pCO2 (35-45) mmHg ABG pO2 (83-108) mmHg ABG HCO3 (21-25) mmol/L ABG Total CO2 (19-24) mmol/L ABG O2 Saturation (94-97) % Sodium (137-145) mmol/L Chloride (98-107) mmol/L BUN (7-17) mg/dL Creatinine (0.52-1.04) mg/dL Glucose (74-99) mg/dL POC Glucose (mg/dL) 137 H 122 H 113 H (75-99) mg/dL Total Bilirubin (0.2-1.3) mg/dL AST (14-36) U/L ALT (9-52) U/L Alkaline Phosphatase (38-126) U/L Total Protein (6.3-8.2) g/dL Albumin (3.5-5.0) g/dL Crossmatch 06/03/17 06/03/17 06/03/17 Range/Units 22:14 22:20 22:20 RBC 2.76 L (3.80-5.40) m/uL Hgb 7.9 L (11.4-16.0) gm/dL Hct 23.7 L (34.0-46.0) % RDW 15.6 H (11.5-15.5) % Plt Count 110 L (150-450) k/uL Lymphocytes # 0.6 L (1.0-4.8) k/uL INR (<1.2) ABG pH 7.49 H (7.35-7.45) ABG pCO2 33 L (35-45) mmHg ABG pO2 59 L (83-108) mmHg ABG HCO3 (21-25) mmol/L ABG Total CO2 26 H (19-24) mmol/L ABG O2 Saturation 91.4 L (94-97) % Sodium 146 H (137-145) mmol/L Chloride 111 H (98-107) mmol/L BUN 18 H (7-17) mg/dL Creatinine 1.20 H (0.52-1.04) mg/dL Glucose 128 H (74-99) mg/dL POC Glucose (mg/dL) (75-99) mg/dL Total Bilirubin 1.4 H (0.2-1.3) mg/dL AST 91 H (14-36) U/L ALT (9-52) U/L Alkaline Phosphatase 35 L (38-126) U/L Total Protein 4.8 L (6.3-8.2) g/dL Albumin 3.2 L (3.5-5.0) g/dL Crossmatch 06/03/17 06/03/17 06/04/17 Range/Units 23:03 23:58 00:58 RBC (3.80-5.40) m/uL Hgb (11.4-16.0) gm/dL Hct (34.0-46.0) % RDW (11.5-15.5) % Plt Count (150-450) k/uL Lymphocytes # (1.0-4.8) k/uL INR (<1.2) ABG pH (7.35-7.45) ABG pCO2 (35-45) mmHg ABG pO2 (83-108) mmHg ABG HCO3 (21-25) mmol/L ABG Total CO2 (19-24) mmol/L ABG O2 Saturation (94-97) % Sodium (137-145) mmol/L Chloride (98-107) mmol/L BUN (7-17) mg/dL Creatinine (0.52-1.04) mg/dL Glucose (74-99) mg/dL POC Glucose (mg/dL) 124 H 122 H 119 H (75-99) mg/dL Total Bilirubin (0.2-1.3) mg/dL AST (14-36) U/L ALT (9-52) U/L Alkaline Phosphatase (38-126) U/L Total Protein (6.3-8.2) g/dL Albumin (3.5-5.0) g/dL Crossmatch 06/04/17 06/04/17 06/04/17 Range/Units 02:06 02:59 04:03 RBC (3.80-5.40) m/uL Hgb (11.4-16.0) gm/dL Hct (34.0-46.0) % RDW (11.5-15.5) % Plt Count (150-450) k/uL Lymphocytes # (1.0-4.8) k/uL INR (<1.2) ABG pH (7.35-7.45) ABG pCO2 (35-45) mmHg ABG pO2 (83-108) mmHg ABG HCO3 (21-25) mmol/L ABG Total CO2 (19-24) mmol/L ABG O2 Saturation (94-97) % Sodium (137-145) mmol/L Chloride (98-107) mmol/L BUN (7-17) mg/dL Creatinine (0.52-1.04) mg/dL Glucose (74-99) mg/dL POC Glucose (mg/dL) 130 H 134 H 136 H (75-99) mg/dL Total Bilirubin (0.2-1.3) mg/dL AST (14-36) U/L ALT (9-52) U/L Alkaline Phosphatase (38-126) U/L Total Protein (6.3-8.2) g/dL Albumin (3.5-5.0) g/dL Crossmatch 06/04/17 06/04/17 06/04/17 Range/Units 04:10 04:10 04:10 RBC 2.71 L (3.80-5.40) m/uL Hgb 7.7 L (11.4-16.0) gm/dL Hct 23.5 L (34.0-46.0) % RDW 15.8 H (11.5-15.5) % Plt Count 113 L (150-450) k/uL Lymphocytes # 0.6 L (1.0-4.8) k/uL INR 1.2 H (<1.2) ABG pH (7.35-7.45) ABG pCO2 (35-45) mmHg ABG pO2 (83-108) mmHg ABG HCO3 (21-25) mmol/L ABG Total CO2 (19-24) mmol/L ABG O2 Saturation (94-97) % Sodium 147 H (137-145) mmol/L Chloride 112 H (98-107) mmol/L BUN 20 H (7-17) mg/dL Creatinine 1.21 H (0.52-1.04) mg/dL Glucose 132 H (74-99) mg/dL POC Glucose (mg/dL) (75-99) mg/dL Total Bilirubin 1.4 H (0.2-1.3) mg/dL AST 95 H (14-36) U/L ALT 57 H (9-52) U/L Alkaline Phosphatase (38-126) U/L Total Protein 4.7 L (6.3-8.2) g/dL Albumin 3.0 L (3.5-5.0) g/dL Crossmatch 06/04/17 06/04/17 06/04/17 Range/Units 04:41 04:45 06:01 RBC (3.80-5.40) m/uL Hgb (11.4-16.0) gm/dL Hct (34.0-46.0) % RDW (11.5-15.5) % Plt Count (150-450) k/uL Lymphocytes # (1.0-4.8) k/uL INR (<1.2) ABG pH 7.48 H (7.35-7.45) ABG pCO2 34 L (35-45) mmHg ABG pO2 62 L (83-108) mmHg ABG HCO3 (21-25) mmol/L ABG Total CO2 26 H (19-24) mmol/L ABG O2 Saturation 92.1 L (94-97) % Sodium (137-145) mmol/L Chloride (98-107) mmol/L BUN (7-17) mg/dL Creatinine (0.52-1.04) mg/dL Glucose (74-99) mg/dL POC Glucose (mg/dL) 113 H 131 H (75-99) mg/dL Total Bilirubin (0.2-1.3) mg/dL AST (14-36) U/L ALT (9-52) U/L Alkaline Phosphatase (38-126) U/L Total Protein (6.3-8.2) g/dL Albumin (3.5-5.0) g/dL Crossmatch 06/04/17 06/04/17 06/04/17 Range/Units 07:09 08:55 10:23 RBC (3.80-5.40) m/uL Hgb (11.4-16.0) gm/dL Hct (34.0-46.0) % RDW (11.5-15.5) % Plt Count (150-450) k/uL Lymphocytes # (1.0-4.8) k/uL INR (<1.2) ABG pH (7.35-7.45) ABG pCO2 (35-45) mmHg ABG pO2 (83-108) mmHg ABG HCO3 (21-25) mmol/L ABG Total CO2 (19-24) mmol/L ABG O2 Saturation (94-97) % Sodium (137-145) mmol/L Chloride (98-107) mmol/L BUN (7-17) mg/dL Creatinine (0.52-1.04) mg/dL Glucose (74-99) mg/dL POC Glucose (mg/dL) 133 H 130 H 130 H (75-99) mg/dL Total Bilirubin (0.2-1.3) mg/dL AST (14-36) U/L ALT (9-52) U/L Alkaline Phosphatase (38-126) U/L Total Protein (6.3-8.2) g/dL Albumin (3.5-5.0) g/dL Crossmatch 06/04/17 Range/Units 11:15 RBC 2.68 L (3.80-5.40) m/uL Hgb 7.7 L (11.4-16.0) gm/dL Hct 23.3 L (34.0-46.0) % RDW 15.7 H (11.5-15.5) % Plt Count 133 L (150-450) k/uL Lymphocytes # (1.0-4.8) k/uL INR (<1.2) ABG pH (7.35-7.45) ABG pCO2 (35-45) mmHg ABG pO2 (83-108) mmHg ABG HCO3 (21-25) mmol/L ABG Total CO2 (19-24) mmol/L ABG O2 Saturation (94-97) % Sodium (137-145) mmol/L Chloride (98-107) mmol/L BUN (7-17) mg/dL Creatinine (0.52-1.04) mg/dL Glucose (74-99) mg/dL POC Glucose (mg/dL) (75-99) mg/dL Total Bilirubin (0.2-1.3) mg/dL AST (14-36) U/L ALT (9-52) U/L Alkaline Phosphatase (38-126) U/L Total Protein (6.3-8.2) g/dL Albumin (3.5-5.0) g/dL Crossmatch Microbiology - Last 24 Hours (Table) 06/02/17 01:03 Gram Stain - Final Sputum Sputum Culture - Final Assessment and Plan Assessment: 1 acute cardiac arrest, acute v fibrillation, resuscitated successfully, defibrillated and the patient is currently intubated on a mechanical ventilator. The acute episode of V. fib was probably ischemic in nature. The patient did not have any significant elevation of troponin the EKG today is sinus with a LBBB pattern 2 Symptomatic multivessel coronary artery disease involving the proximal and mid LAD, RCA and diffuse disease in the circumflex coronary artery, post CO, post four-vessel bypass surgery and the patient is postop day #1. Currently on 2 mics of levo fed. Adequate cardiac index and output. Hemodynamically stable. Not ready to wean yet and we are waiting further improvement in oxygenation prior to proceeding with weaning. Currently she is on atenolol PEEP with an FiO2 of 60%. Blood gases was noted. Thyroid avoidable be dropped down to 500. 3 . COPD, with a baseline FEV1 of 76% of predicted on outpatient basis. 4. Obstructive sleep apnea, with baseline AHI of 80, patient was prescribed BiPAP therapy at pressures 21/17 cm of water. 5. Obesity, 6. Coronary artery disease, with previous stenting 7. Recent hospitalization for right lung pneumonia at [facility] in March 2017. Patient had a thoracentesis for pleural effusion during that admission 8. Hyperlipidemia and hypertension hypertension 9. History of right breast cancer with lumpectomy/lymph node removal and radiation 10. GERD/reflux 11 a large cystic structure within the right axilla. Could be a recurrent breast cancer although this is a remote possibility. This has been addressed by many general surgeons out of town, and by Dr. trotter at one point. 12 diabetes mellitus, currently on insulin drip for blood sugar control 13 anemia, hemoglobin is at 8.7 Plan: Continue present supportive care measures, continue to titrate FiO2 down, keep the patient at 8 for now, if the patient does not show significant improvement in the next 24 hours, may have to seriously consider bronchoscopy and lavage of the left lower lobe. Patient is clearly not ready for weaning or extubation at this point. I will discuss her condition with her was a patient of [facility] ([facility]) for many years. Critical care time is 35 minutes. Time with Patient: Greater than 30
[2017-06-04 12:15] LABS: Glucose,Whole Blood 125 mg/dL (75-99)
[2017-06-04] MEDS: AMIODARONE 450 MG in DEXTROSE 5% IN WATER 250 ML IV PRN ×2 (12:41)
[2017-06-04 13:22] LABS: Glucose,Whole Blood 116 mg/dL (75-99)
[2017-06-04 15:20] LABS: Glucose,Whole Blood 116 mg/dL (75-99)
--- NOTE | 2017-06-04 15:42 | P.PN ---
Subjective Patient is still intubated. She failed a weaning trial. On examination pulse rate is in the 90s, blood pressure 124/65 mmHg Breath sounds are reduced bilaterally but equal heart sounds are soft and distant Abdomen is soft Extremities are warm Impression Multivessel coronary artery disease Ventricular fibrillation, ischemic in origin Status post coronary artery bypass grafting Plan Continue ICU care postoperative Continue aspirin statins beta blockers and Lasix Objective - Vital Signs Vital signs: Vital Signs Temp 100 F H 06/04/17 04:00 Pulse 100 06/04/17 15:27 Resp 26 H 06/04/17 15:00 BP 87/56 06/04/17 02:00 Pulse Ox 97 06/04/17 15:00 Intake & Output 06/03/17 06/04/17 06/04/17 18:59 06:59 18:59 Intake Total 2093.837 3177.332 1352.776 Output Total 1187 980 625 Balance 422.610 245.332 727.776 Weight 121 kg 121 kg Intake: IV 1173.2 1015.6 575.8 0.9 for pressure 102 108 81 ACETAMINOPHEN IV (For NPO 100 ) 1,000 mg In Empty Bag 1 bag @ 400 mls/hr IVPB Q6HR [facility] Rx#:[id number] Amiodarone 183.7 16.7 Amiodarone 450 mg In 167.0 16.7 Dextrose 5% in Water 250 ml @ 1 MG/MIN 34.53 mls/ hr IV .Q7H31M PRN Rx#: [id number] CO/CI 80 120 40 Lactated Ringers 1,000 ml 215 240 180 @ 20 mls/hr IV .Q24H [facility] Rx#:[id number] Milrinone-D5w Pmx 20 mg 97.2 97.2 8.1 In Dextrose/Water 1 100ml .bag @ Per Protocol IV . Q0M [facility] Rx#:[id number] Nitroglycerin-D5w Pmx 50 12.0 mg In Dextrose/Water 1 250ml.bag @ 5 MCG/MIN 1.5 mls/hr IV .Q24H ONE Rx#: [id number] Potassium Chloride 10 meq 400 In Sodium Chloride 0.9% 100 ml @ 100 mls/hr IV Q1H [facility] Rx#:[id number] Vancomycin 1,750 mg In 250 250 Sodium Chloride 0.9% 250 ml @ 125 mls/hr IVPB Q16H [facility] Rx#:[id number] Intake, IV Titration 436.410 209.732 626.976 Amount Amiodarone 450 mg In 259 259 Dextrose 5% in Water 250 ml @ 1 MG/MIN 34.53 mls/ hr IV .Q7H31M PRN Rx#: [id number] Dexmedetomidine/0.9% NaCl 56.715 (Pmx) 400 mcg In Empty Bag 1 bag @ Titrate IV . Q0M [facility] Rx#:[id number] Insulin Regular 100 unit 140.826 20.091 154.725 In Sodium Chloride 0.9% 100 ml @ Per Protocol IV .Q0M [facility] Rx#:[id number] Milrinone-D5w Pmx 20 mg 5.58 100 In Dextrose/Water 1 100ml .bag @ Per Protocol IV . Q0M [facility] Rx#:[id number] Norepinephrin 16 mg-0.9% 7.551 27.346 13.251 Ns Pmx 16 mg In 250 ml @ Titrate IV .Q0M [facility] Rx#: [id number] Propofol 1,000 mg In 29.033 Empty Bag 1 bag @ Titrate IV .Q0M [facility] Rx#: [id number] Propofol 1,000 mg In 100.000 100 Empty Bag 1 bag @ Titrate IV .Q0M [facility] Rx#: [id number] Tube Feeding 30 Other 120 Output: Chest Tube Drainage 312 300 165 Chest Tube Left Pleural/ 32 Mediastinal Chest Tube Right 5 Mediastinal Mediastinal 55 10 0 left pleural 220 290 165 Gastric Drainage 200 100 Drainage 35 150 80 Right Lower Medial Calf 35 150 80 Urine 640 430 380 Other: Voiding Method Indwelling Catheter Indwelling Catheter Indwelling Catheter # Voids 2 # Bowel Movements 0 0 ABP, PAP, CO, CI - Last Documented Arterial Blood Pressure 124/65 Pulmonary Artery Pressure 32/18 Cardiac Output 5.4 Cardiac Index 2.6 - Labs CBC & Chem 7: 06/04/17 11:15 06/04/17 11:15 Labs: Abnormal Lab Results - Last 24 Hours (Table) 06/02/17 06/03/17 06/03/17 Range/Units 11:09 16:09 16:18 RBC (3.80-5.40) m/uL Hgb (11.4-16.0) gm/dL Hct (34.0-46.0) % RDW (11.5-15.5) % Plt Count (150-450) k/uL Lymphocytes # (1.0-4.8) k/uL INR (<1.2) ABG pH 7.47 H (7.35-7.45) ABG pCO2 (35-45) mmHg ABG pO2 64 L (83-108) mmHg ABG HCO3 27 H (21-25) mmol/L ABG Total CO2 28 H (19-24) mmol/L ABG O2 Saturation 93.8 L (94-97) % Sodium (137-145) mmol/L Chloride (98-107) mmol/L BUN (7-17) mg/dL Creatinine (0.52-1.04) mg/dL Glucose (74-99) mg/dL POC Glucose (mg/dL) 136 H (75-99) mg/dL Total Bilirubin (0.2-1.3) mg/dL AST (14-36) U/L ALT (9-52) U/L Alkaline Phosphatase (38-126) U/L Total Protein (6.3-8.2) g/dL Albumin (3.5-5.0) g/dL Crossmatch See Detail 06/03/17 06/03/17 06/03/17 Range/Units 17:07 18:02 19:02 RBC (3.80-5.40) m/uL Hgb (11.4-16.0) gm/dL Hct (34.0-46.0) % RDW (11.5-15.5) % Plt Count (150-450) k/uL Lymphocytes # (1.0-4.8) k/uL INR (<1.2) ABG pH (7.35-7.45) ABG pCO2 (35-45) mmHg ABG pO2 (83-108) mmHg ABG HCO3 (21-25) mmol/L ABG Total CO2 (19-24) mmol/L ABG O2 Saturation (94-97) % Sodium (137-145) mmol/L Chloride (98-107) mmol/L BUN (7-17) mg/dL Creatinine (0.52-1.04) mg/dL Glucose (74-99) mg/dL POC Glucose (mg/dL) 140 H 149 H 143 H (75-99) mg/dL Total Bilirubin (0.2-1.3) mg/dL AST (14-36) U/L ALT (9-52) U/L Alkaline Phosphatase (38-126) U/L Total Protein (6.3-8.2) g/dL Albumin (3.5-5.0) g/dL Crossmatch 06/03/17 06/03/17 06/03/17 Range/Units 20:14 20:58 21:58 RBC (3.80-5.40) m/uL Hgb (11.4-16.0) gm/dL Hct (34.0-46.0) % RDW (11.5-15.5) % Plt Count (150-450) k/uL Lymphocytes # (1.0-4.8) k/uL INR (<1.2) ABG pH (7.35-7.45) ABG pCO2 (35-45) mmHg ABG pO2 (83-108) mmHg ABG HCO3 (21-25) mmol/L ABG Total CO2 (19-24) mmol/L ABG O2 Saturation (94-97) % Sodium (137-145) mmol/L Chloride (98-107) mmol/L BUN (7-17) mg/dL Creatinine (0.52-1.04) mg/dL Glucose (74-99) mg/dL POC Glucose (mg/dL) 137 H 122 H 113 H (75-99) mg/dL Total Bilirubin (0.2-1.3) mg/dL AST (14-36) U/L ALT (9-52) U/L Alkaline Phosphatase (38-126) U/L Total Protein (6.3-8.2) g/dL Albumin (3.5-5.0) g/dL Crossmatch 06/03/17 06/03/17 06/03/17 Range/Units 22:14 22:20 22:20 RBC 2.76 L (3.80-5.40) m/uL Hgb 7.9 L (11.4-16.0) gm/dL Hct 23.7 L (34.0-46.0) % RDW 15.6 H (11.5-15.5) % Plt Count 110 L (150-450) k/uL Lymphocytes # 0.6 L (1.0-4.8) k/uL INR (<1.2) ABG pH 7.49 H (7.35-7.45) ABG pCO2 33 L (35-45) mmHg ABG pO2 59 L (83-108) mmHg ABG HCO3 (21-25) mmol/L ABG Total CO2 26 H (19-24) mmol/L ABG O2 Saturation 91.4 L (94-97) % Sodium 146 H (137-145) mmol/L Chloride 111 H (98-107) mmol/L BUN 18 H (7-17) mg/dL Creatinine 1.20 H (0.52-1.04) mg/dL Glucose 128 H (74-99) mg/dL POC Glucose (mg/dL) (75-99) mg/dL Total Bilirubin 1.4 H (0.2-1.3) mg/dL AST 91 H (14-36) U/L ALT (9-52) U/L Alkaline Phosphatase 35 L (38-126) U/L Total Protein 4.8 L (6.3-8.2) g/dL Albumin 3.2 L (3.5-5.0) g/dL Crossmatch 06/03/17 06/03/17 06/04/17 Range/Units 23:03 23:58 00:58 RBC (3.80-5.40) m/uL Hgb (11.4-16.0) gm/dL Hct (34.0-46.0) % RDW (11.5-15.5) % Plt Count (150-450) k/uL Lymphocytes # (1.0-4.8) k/uL INR (<1.2) ABG pH (7.35-7.45) ABG pCO2 (35-45) mmHg ABG pO2 (83-108) mmHg ABG HCO3 (21-25) mmol/L ABG Total CO2 (19-24) mmol/L ABG O2 Saturation (94-97) % Sodium (137-145) mmol/L Chloride (98-107) mmol/L BUN (7-17) mg/dL Creatinine (0.52-1.04) mg/dL Glucose (74-99) mg/dL POC Glucose (mg/dL) 124 H 122 H 119 H (75-99) mg/dL Total Bilirubin (0.2-1.3) mg/dL AST (14-36) U/L ALT (9-52) U/L Alkaline Phosphatase (38-126) U/L Total Protein (6.3-8.2) g/dL Albumin (3.5-5.0) g/dL Crossmatch 06/04/17 06/04/17 06/04/17 Range/Units 02:06 02:59 04:03 RBC (3.80-5.40) m/uL Hgb (11.4-16.0) gm/dL Hct (34.0-46.0) % RDW (11.5-15.5) % Plt Count (150-450) k/uL Lymphocytes # (1.0-4.8) k/uL INR (<1.2) ABG pH (7.35-7.45) ABG pCO2 (35-45) mmHg ABG pO2 (83-108) mmHg ABG HCO3 (21-25) mmol/L ABG Total CO2 (19-24) mmol/L ABG O2 Saturation (94-97) % Sodium (137-145) mmol/L Chloride (98-107) mmol/L BUN (7-17) mg/dL Creatinine (0.52-1.04) mg/dL Glucose (74-99) mg/dL POC Glucose (mg/dL) 130 H 134 H 136 H (75-99) mg/dL Total Bilirubin (0.2-1.3) mg/dL AST (14-36) U/L ALT (9-52) U/L Alkaline Phosphatase (38-126) U/L Total Protein (6.3-8.2) g/dL Albumin (3.5-5.0) g/dL Crossmatch 06/04/17 06/04/17 06/04/17 Range/Units 04:10 04:10 04:10 RBC 2.71 L (3.80-5.40) m/uL Hgb 7.7 L (11.4-16.0) gm/dL Hct 23.5 L (34.0-46.0) % RDW 15.8 H (11.5-15.5) % Plt Count 113 L (150-450) k/uL Lymphocytes # 0.6 L (1.0-4.8) k/uL INR 1.2 H (<1.2) ABG pH (7.35-7.45) ABG pCO2 (35-45) mmHg ABG pO2 (83-108) mmHg ABG HCO3 (21-25) mmol/L ABG Total CO2 (19-24) mmol/L ABG O2 Saturation (94-97) % Sodium 147 H (137-145) mmol/L Chloride 112 H (98-107) mmol/L BUN 20 H (7-17) mg/dL Creatinine 1.21 H (0.52-1.04) mg/dL Glucose 132 H (74-99) mg/dL POC Glucose (mg/dL) (75-99) mg/dL Total Bilirubin 1.4 H (0.2-1.3) mg/dL AST 95 H (14-36) U/L ALT 57 H (9-52) U/L Alkaline Phosphatase (38-126) U/L Total Protein 4.7 L (6.3-8.2) g/dL Albumin 3.0 L (3.5-5.0) g/dL Crossmatch 06/04/17 06/04/17 06/04/17 Range/Units 04:41 04:45 06:01 RBC (3.80-5.40) m/uL Hgb (11.4-16.0) gm/dL Hct (34.0-46.0) % RDW (11.5-15.5) % Plt Count (150-450) k/uL Lymphocytes # (1.0-4.8) k/uL INR (<1.2) ABG pH 7.48 H (7.35-7.45) ABG pCO2 34 L (35-45) mmHg ABG pO2 62 L (83-108) mmHg ABG HCO3 (21-25) mmol/L ABG Total CO2 26 H (19-24) mmol/L ABG O2 Saturation 92.1 L (94-97) % Sodium (137-145) mmol/L Chloride (98-107) mmol/L BUN (7-17) mg/dL Creatinine (0.52-1.04) mg/dL Glucose (74-99) mg/dL POC Glucose (mg/dL) 113 H 131 H (75-99) mg/dL Total Bilirubin (0.2-1.3) mg/dL AST (14-36) U/L ALT (9-52) U/L Alkaline Phosphatase (38-126) U/L Total Protein (6.3-8.2) g/dL Albumin (3.5-5.0) g/dL Crossmatch 06/04/17 06/04/17 06/04/17 Range/Units 07:09 08:55 10:23 RBC (3.80-5.40) m/uL Hgb (11.4-16.0) gm/dL Hct (34.0-46.0) % RDW (11.5-15.5) % Plt Count (150-450) k/uL Lymphocytes # (1.0-4.8) k/uL INR (<1.2) ABG pH (7.35-7.45) ABG pCO2 (35-45) mmHg ABG pO2 (83-108) mmHg ABG HCO3 (21-25) mmol/L ABG Total CO2 (19-24) mmol/L ABG O2 Saturation (94-97) % Sodium (137-145) mmol/L Chloride (98-107) mmol/L BUN (7-17) mg/dL Creatinine (0.52-1.04) mg/dL Glucose (74-99) mg/dL POC Glucose (mg/dL) 133 H 130 H 130 H (75-99) mg/dL Total Bilirubin (0.2-1.3) mg/dL AST (14-36) U/L ALT (9-52) U/L Alkaline Phosphatase (38-126) U/L Total Protein (6.3-8.2) g/dL Albumin (3.5-5.0) g/dL Crossmatch 06/04/17 06/04/17 06/04/17 Range/Units 11:15 12:14 13:21 RBC 2.68 L (3.80-5.40) m/uL Hgb 7.7 L (11.4-16.0) gm/dL Hct 23.3 L (34.0-46.0) % RDW 15.7 H (11.5-15.5) % Plt Count 133 L (150-450) k/uL Lymphocytes # (1.0-4.8) k/uL INR (<1.2) ABG pH (7.35-7.45) ABG pCO2 (35-45) mmHg ABG pO2 (83-108) mmHg ABG HCO3 (21-25) mmol/L ABG Total CO2 (19-24) mmol/L ABG O2 Saturation (94-97) % Sodium (137-145) mmol/L Chloride (98-107) mmol/L BUN (7-17) mg/dL Creatinine (0.52-1.04) mg/dL Glucose (74-99) mg/dL POC Glucose (mg/dL) 125 H 116 H (75-99) mg/dL Total Bilirubin (0.2-1.3) mg/dL AST (14-36) U/L ALT (9-52) U/L Alkaline Phosphatase (38-126) U/L Total Protein (6.3-8.2) g/dL Albumin (3.5-5.0) g/dL Crossmatch 06/04/17 Range/Units 15:17 RBC (3.80-5.40) m/uL Hgb (11.4-16.0) gm/dL Hct (34.0-46.0) % RDW (11.5-15.5) % Plt Count (150-450) k/uL Lymphocytes # (1.0-4.8) k/uL INR (<1.2) ABG pH (7.35-7.45) ABG pCO2 (35-45) mmHg ABG pO2 (83-108) mmHg ABG HCO3 (21-25) mmol/L ABG Total CO2 (19-24) mmol/L ABG O2 Saturation (94-97) % Sodium (137-145) mmol/L Chloride (98-107) mmol/L BUN (7-17) mg/dL Creatinine (0.52-1.04) mg/dL Glucose (74-99) mg/dL POC Glucose (mg/dL) 116 H (75-99) mg/dL Total Bilirubin (0.2-1.3) mg/dL AST (14-36) U/L ALT (9-52) U/L Alkaline Phosphatase (38-126) U/L Total Protein (6.3-8.2) g/dL Albumin (3.5-5.0) g/dL Crossmatch Microbiology - Last 24 Hours (Table) 06/02/17 01:03 Gram Stain - Final Sputum Sputum Culture - Final
--- NOTE | 2017-06-04 16:57 | PN ---
PROGRESS NOTE ADDENDUM: DATE OF SERVICE: 06/03/17 Correction: My note dictated on June 03, 2017 at 1805 pm, date transcribed on June 03, 2017 at 1849 pm, the correct date of service should read 06/03/17. MMODL / IJN: [id number] /
--- NOTE | 2017-06-04 17:21 | PN ---
PROGRESS NOTE DATE OF SERVICE: 06/04/17 PRESENTING COMPLAINT: Intubated. INTERVAL HISTORY: The patient is status post acute myocardial infarction, cardiac arrest with VFib and has undergone 4 vessel coronary bypass. Remains on the ventilator. FiO2 of 65% and a PEEP of 8. Drips include propofol at 50 mics, norepinephrine at 2 mics, insulin, at 10.5 units, IV Milrinone, amiodarone at 0.5 mg. Telemetry shows sinus rhythm. The patient was not weaned earlier today because of her parameters. No family at the bedside. REVIEW OF SYSTEMS: Patient in intubated. CURRENT MEDICATIONS: Reviewed. See above. PHYSICAL EXAMINATION: Afebrile. Pulse 101, respiration 40, blood pressure 115/66, pulse ox 98% on the ventilator. GENERAL APPEARANCE: Lying in bed intubated. Eyes: Pupils equal. Conjunctivae normal. HEENT external appearance of nose and ears normal. Oral cavity: Endotracheal tube in place. Neck JVD unable to assess. Mass not palpable. Respiratory effort lungs distant breath sounds. Cardiovascular: Heart sounds muffled. No edema. ABDOMEN: Soft, nontender. Liver and spleen not palpable. Chest tubes are present. Neurological: Plantars are downgoing. INVESTIGATIONS: Chest x-ray shows small pleural effusion. White count 6.6, hemoglobin 7.7, platelets 133. Accu-Cheks noted. ASSESSMENT: 1. Status post 4 vessel coronary bypass. 2. Coronary artery prior history of stent. Acute myocardial infarction and cardiac arrest with VFib. 3. Obesity. 4. Intermittent asthma. 5. Diabetes mellitus type 2, chronically requiring insulin, currently on an insulin drip. 6. Gastroesophageal reflux disease. 7. Hyperlipidemia. 8. Obstructive sleep apnea, using CPAP until recently. 9. Right mastectomy with lumpectomy from breast cancer. 10.Right axillary lesion, being followed as an outpatient. 11.Bilateral nephrolithiasis asymptomatic. 12.Left atrial nodule 2.4 cm. 13.Hypertensive heart disease. 14.Acute respiratory failure with ventilator assistance. 15.Acute blood-loss anemia as expected from surgery. 16.Dilutional thrombocytopenia. 17.Hypoalbuminemia as an acute phase reactant. PLAN: Continue current medication and treatment plan. Supportive care. The patient is slow to wean. Pulmonary is planning to do bronchoscopy if weaning parameters do not improve. Will follow. MMODL / IJN: [id number] /
[2017-06-04 18:34] LABS: Glucose,Whole Blood 119 mg/dL (75-99)
[2017-06-04 20:27] LABS: Glucose,Whole Blood 114 mg/dL (75-99)
[2017-06-04 21:09] LABS: Glucose,Whole Blood 99 mg/dL (75-99)
[2017-06-04] MEDS: SENNOSIDES-DOCUSATE SODIUM 1 EACH TAB PO SCH (21:22)
[2017-06-04 22:00] LABS: Glucose,Whole Blood 113 mg/dL (75-99)
[2017-06-04 23:15] LABS: Glucose,Whole Blood 152 mg/dL (75-99)
[2017-06-04] MEDS: LACTATED RINGERS 1,000 ML IV SCH (23:25)
[2017-06-05 00:05] LABS: Glucose,Whole Blood 174 mg/dL (75-99)
[2017-06-05] MEDS: PROPOFOL 1,000 MG in EMPTY BAG 1 BAG IV SCH ×4 (00:17→21:29)
[2017-06-05 01:37] LABS: Glucose,Whole Blood 165 mg/dL (75-99)
[2017-06-05 03:18] LABS: Glucose,Whole Blood 128 mg/dL (75-99)
[2017-06-05] MEDS: IPRATROPIUM-ALBUTEROL 3 ML NEB INHALATION SCH ×5 (03:56→19:26)
[2017-06-05 04:25] LABS: Glucose,Whole Blood 123 mg/dL (75-99)
[2017-06-05] MEDS ORDERED: DEXTROSE 5% IN WATER 100 ML with AMIODARONE 150 MG IV ONE (04:39)
[2017-06-05 04:46] LABS: Basophils % (A) 0 %; Eosinophils % (A) 1 %; HCT 24.3 % (34.0-46.0); HGB 7.8 gm/dL (11.4-16.0); Hypochromasia Slight; Lymphocytes # (A) 1.2 k/uL (1.0-4.8); Lymphocytes % (A) 17 %; MCH 28.2 pg (25.0-35.0); MCHC 31.9 g/dL (31.0-37.0); MCV 88.2 fL (80.0-100.0); Mean Platelet Volume 9.1; Monocytes # (A) 0.3 k/uL (0-1.0); Monocytes % (A) 4 %; Neutrophils # (A) 5.6 k/uL (1.3-7.7); Neutrophils % (A) 76 %; Platelet Count 122 k/uL (150-450); RBC 2.75 m/uL (3.80-5.40); RDW 15.7 % (11.5-15.5); WBC 7.4 k/uL (3.8-10.6)
[2017-06-05 04:49] LABS: Ionized Calcium 5.3 mg/dL (4.5-5.3)
[2017-06-05 05:01] LABS: Glucose,Whole Blood 171 mg/dL (75-99)
[2017-06-05 05:11] LABS: Albumin 2.8 g/dL (3.5-5.0); Calcium 9.3 mg/dL (8.4-10.2); Magnesium 2.3 mg/dL (1.6-2.3); Potassium 3.7 mmol/L (3.5-5.1); Total Bilirubin 1.1 mg/dL (0.2-1.3); Total Protein 4.7 g/dL (6.3-8.2)
[2017-06-05 06:38] LABS: Glucose,Whole Blood 173 mg/dL (75-99)
[2017-06-05] MEDS ORDERED: POTASSIUM BICARBONATE/CIT AC 20 MEQ TABLET.EFF NG-TUBE SCH (07:00)
[2017-06-05 07:07] LABS: Glucose,Whole Blood 169 mg/dL (75-99)
[2017-06-05] MEDS: INSULIN REGULAR 100 UNIT in SODIUM CHLORIDE 0.9% 100 ML IV SCH ×3 (07:10→22:07)
--- NOTE | 2017-06-05 08:09 | XR ---
EXAMINATION TYPE: XR chest 1V DATE OF EXAM: 06/05/2017 COMPARISON: 06/04/2017 HISTORY: SOB, Follow Up FINDINGS: Indwelling tubes and catheters are unchanged. No change in bibasilar opacities. Stable appearance of the cardio-mediastinal structures at this time. Pleural effusion unchanged. IMPRESSION: 1. Stable portable chest. Clinical correlation and follow up until resolution is recommended.
[2017-06-05 08:12] LABS: Glucose,Whole Blood 164 mg/dL (75-99)
[2017-06-05] MEDS: PANTOPRAZOLE 40 MG/10 ML VIAL IVP SCH (08:13)
[2017-06-05] MEDS: CHLORHEXIDINE GLUCONATE 15 ML CUP MUCOUS MEM SCH ×2 (08:14→21:29)
[2017-06-05] MEDS: CLOPIDOGREL 75 MG TAB PO SCH (08:14)
[2017-06-05] MEDS: METOPROLOL TARTRATE 12.5 MG TAB OG-TUBE SCH (08:14)
[2017-06-05] MEDS: HEPARIN SODIUM,PORCINE 5,000 UNIT/ML 1 ML VIAL SQ SCH ×2 (08:14→16:32)
[2017-06-05] MEDS: ATORVASTATIN 40 MG TAB PO SCH (08:14)
[2017-06-05] MEDS: ASPIRIN 325 MG TAB PO SCH (08:14)
[2017-06-05] MEDS: MUPIROCIN 2% OINT 22 GM TUBE NASAL SCH ×2 (08:14→21:29)
[2017-06-05 08:22] LABS: ABG HCO3 25 mmol/L (21-25); ABG Oxygen Saturation 95.4 % (94-97); ABG PCO2 33 mmHg (35-45); ABG PH 7.48 (7.35-7.45); ABG PO2 73 mmHg (83-108); ABG TCO2 26 mmol/L (19-24)
[2017-06-05 09:08] LABS: Glucose,Whole Blood 168 mg/dL (75-99)
[2017-06-05] MEDS ORDERED: METOPROLOL TARTRATE 12.5 MG TAB PO STA (10:19)
--- NOTE | 2017-06-05 10:28 | P.PN ---
Subjective Progress Note Date: 06/05/17 Principal diagnosis: Multivessel coronary artery disease, status post ventricular fibrillation arrest , history of hypertension, hyperlipidemia, insulin dependent diabetes mellitus with preoperative hemoglobin A1c 9.4%, non-ST elevation myocardial infarction this admission and history of previous myocardial infarction with stent placement to the RCA in 2010, preserved left ventricular function with preoperative ejection fraction of 50-55%, mild mitral valve regurgitation, obesity, obstructive sleep apnea, recent pneumonia in March 2017, previous tobacco dependence, right breast cancer with lumpectomy and radiation, chronic obstructive pulmonary disease with preoperative FEV1 of 76% of predicted and preoperative arterial blood gas pH 7.46, pCO2 40, pO2 68, HCO3 28, GERD and family history of premature coronary artery disease. POD #3 coronary artery bypass grafting 4 using the left internal mammary artery to the left anterior descending coronary artery, a reverse greater saphenous vein graft from the aorta to the distal posterior descending coronary artery, a reverse greater saphenous vein graft from the aorta to the ramus intermedius coronary artery, a reverse greater saphenous vein graft from the aorta to the second diagonal coronary artery. Endoscopic harvesting of the right greater saphenous vein. Intraoperative transesophageal echocardiogram and epi-aortic scanning. Intraoperative graft flow measurement using the [email or web address] system. Status post preoperative acute cardiac arrest with ventricular fibrillation arrest with successful resuscitation. Postoperative prolonged mechanical ventilation secondary to hemodynamic instability, an unexpected but potential outcome of surgery. Postoperative atrial fibrillation, an unexpected but potential outcome of surgery. The patient is currently lying in bed in the intensive care unit. She is in no acute distress. She is currently hemodynamically stable, on norepinephrine at 1 mcg/m. She remains intubated with mechanical ventilator support. ABGs this morning are 7.48 pH, pCO2 33, pO2 73, HCO3 25, oxygen saturation 95.4, base excess 1.0. Oxygen saturations currently 96%. Sedation is on hold at this time , she opens her eyes with verbal stimuli no tracking with her eyes present at this time. She is not following any verbal commands or moving her extremities with command at this time. The patient had an episode of atrial fibrillation early this morning which was treated accordingly. Currently in normal sinus rhythm with no further episodes of atrial fibrillation. Objective - Vital Signs Vital signs: Vital Signs Temp 99.9 F H 06/05/17 05:00 Pulse 90 06/05/17 09:00 Resp 33 H 06/05/17 09:00 BP 87/56 06/04/17 02:00 Pulse Ox 98 06/05/17 09:00 Intake & Output 06/04/17 06/05/17 06/05/17 18:59 06:59 18:59 Intake Total 1630.887 958.200 390.088 Output Total 780 890 155 Balance 850.887 68.200 235.088 Weight 121 kg 126 kg Intake: IV 682.8 351.7 127.1 0.9 for pressure 108 108 27 Amiodarone 16.7 183.7 50.1 CO/CI 80 60 10 Lactated Ringers 1,000 ml 220 40 @ 20 mls/hr IV .Q24H [facility] Rx#:[id number] Milrinone-D5w Pmx 20 mg 8.1 In Dextrose/Water 1 100ml .bag @ Per Protocol IV . Q0M [facility] Rx#:[id number] Vancomycin 1,750 mg In 250 Sodium Chloride 0.9% 250 ml @ 125 mls/hr IVPB Q16H [facility] Rx#:[id number] Intake, IV Titration 738.087 381.500 82.988 Amount Amiodarone 450 mg In 259 Dextrose 5% in Water 250 ml @ 1 MG/MIN 34.53 mls/ hr IV .Q7H31M PRN Rx#: [id number] Insulin Regular 100 unit 154.725 151.250 24.45 In Sodium Chloride 0.9% 100 ml @ Per Protocol IV .Q0M [facility] Rx#:[id number] Milrinone-D5w Pmx 20 mg 100 In Dextrose/Water 1 100ml .bag @ Per Protocol IV . Q0M [facility] Rx#:[id number] Norepinephrin 16 mg-0.9% 24.362 28.75 Ns Pmx 16 mg In 250 ml @ Titrate IV .Q0M [facility] Rx#: [id number] Propofol 1,000 mg In 200 230.25 29.788 Empty Bag 1 bag @ Titrate IV .Q0M [facility] Rx#: [id number] Tube Feeding 90 195 150 Other 120 30 30 Output: Chest Tube Drainage 175 180 20 Mediastinal 0 left pleural 175 180 20 Drainage 80 300 15 Right Lower Medial Calf 80 300 15 Urine 525 410 120 Other: Voiding Method Indwelling Catheter Indwelling Catheter # Voids 2 # Bowel Movements 0 0 ABP, PAP, CO, CI - Last Documented Arterial Blood Pressure 150/74 Pulmonary Artery Pressure 37/23 Cardiac Output 5 Cardiac Index 2.4 - Exam The patient remains intubated with mechanical ventilator support. She opens up her eyes to verbal stimuli, not moving any extremities at this time on current with her sedation on hold. - Constitutional General appearance: Present: no acute distress - EENT Eyes: Present: PERRLA - Neck Details: No JVD, no lymphadenopathy, neck is supple. Right IJ cordis in place with Water[place]- Bouchra catheter, [place] is patent and functioning. - Respiratory Details: Lung sounds with coarse rhonchi throughout, diminished to her left lower lobe. Respirations are symmetrical and nonlabored with mechanical ventilator support. Current ventilator settings are as follows: AC 18, TV 500, FiO2 60%, PEEP of 8. Oxygen saturations are 96% with current ventilator settings. Left pleural chest tube intact and to low continuous wall suction -20 cm H2O. Draining thin serosanguineous drainage. No air leak present. 140 mL output in the last 8 hours, 500 mL output in the last 24 hours. Mediastinal chest tube was discontinued yesterday. - Cardiovascular Details: Regular rhythm and rate. S1 and S2 present, negative for S3, gallop or murmur. Sternum is stable. Bedside telemetry showing normal sinus rhythm with left bundle branch block, heart rate 91. Heart hugger is in place although she is unable to demonstrate good use due to her sedation. Atrial and ventricular epicardial pacemaker wires in place and are grounded. Knee-high DIVINE hose and sequential compression devices in place to her bilateral lower extremities. - Gastrointestinal Gastrointestinal Comment(s): Abdomen is soft, nontender, slightly distended. Hypoactive bowel sounds to all 4 abdominal quadrants. OG tube in place with vital high-protein 1.0 Infusing at 30 mL per hour with goal rate of 45 mL/h. Automatic monitor flushes 30 mL every 4 hours. - Genitourinary Genitourinary Comment(s): Clear nithin urine. Lea catheter for accurate I&O. 290 mL output in the last 8 hours. - Integumentary Integumentary Comment(s): Skin is warm and dry. No clubbing or cyanosis. Midline sternal incision clean dry and well approximated. No drainage or redness present. Dermabond dressing clean and dry. Right leg EVH site clean and dry. No drainage or redness present. DREW drain in place with thin serosanguineous drainage. 195 L output last 8 hours, 380 mL output in the last 24 hours. - Neurologic Neurologic Comment(s): Sedation currently on hold. Not moving any extremities appropriately at this time, opens eyes with verbal stimuli. No tracking with her eyes at this time. - Musculoskeletal Musculoskeletal Comment(s): Cannot be assessed at this time. - Allied health notes Allied health notes reviewed: nursing - Labs CBC & Chem 7: 06/05/17 04:15 06/05/17 04:15 Labs: Abnormal Lab Results - Last 24 Hours (Table) 06/04/17 06/04/17 06/04/17 Range/Units 10:23 11:15 12:14 RBC 2.68 L (3.80-5.40) m/uL Hgb 7.7 L (11.4-16.0) gm/dL Hct 23.3 L (34.0-46.0) % RDW 15.7 H (11.5-15.5) % Plt Count 133 L (150-450) k/uL ABG pH (7.35-7.45) ABG pCO2 (35-45) mmHg ABG pO2 (83-108) mmHg ABG Total CO2 (19-24) mmol/L Chloride (98-107) mmol/L BUN (7-17) mg/dL Creatinine (0.52-1.04) mg/dL Glucose (74-99) mg/dL POC Glucose (mg/dL) 130 H 125 H (75-99) mg/dL AST (14-36) U/L ALT (9-52) U/L Total Protein (6.3-8.2) g/dL Albumin (3.5-5.0) g/dL 06/04/17 06/04/17 06/04/17 Range/Units 13:21 15:17 18:32 RBC (3.80-5.40) m/uL Hgb (11.4-16.0) gm/dL Hct (34.0-46.0) % RDW (11.5-15.5) % Plt Count (150-450) k/uL ABG pH (7.35-7.45) ABG pCO2 (35-45) mmHg ABG pO2 (83-108) mmHg ABG Total CO2 (19-24) mmol/L Chloride (98-107) mmol/L BUN (7-17) mg/dL Creatinine (0.52-1.04) mg/dL Glucose (74-99) mg/dL POC Glucose (mg/dL) 116 H 116 H 119 H (75-99) mg/dL AST (14-36) U/L ALT (9-52) U/L Total Protein (6.3-8.2) g/dL Albumin (3.5-5.0) g/dL 06/04/17 06/04/17 06/04/17 Range/Units 20:25 21:59 23:13 RBC (3.80-5.40) m/uL Hgb (11.4-16.0) gm/dL Hct (34.0-46.0) % RDW (11.5-15.5) % Plt Count (150-450) k/uL ABG pH (7.35-7.45) ABG pCO2 (35-45) mmHg ABG pO2 (83-108) mmHg ABG Total CO2 (19-24) mmol/L Chloride (98-107) mmol/L BUN (7-17) mg/dL Creatinine (0.52-1.04) mg/dL Glucose (74-99) mg/dL POC Glucose (mg/dL) 114 H 113 H 152 H (75-99) mg/dL AST (14-36) U/L ALT (9-52) U/L Total Protein (6.3-8.2) g/dL Albumin (3.5-5.0) g/dL 06/05/17 06/05/17 06/05/17 Range/Units 00:04 01:35 03:06 RBC (3.80-5.40) m/uL Hgb (11.4-16.0) gm/dL Hct (34.0-46.0) % RDW (11.5-15.5) % Plt Count (150-450) k/uL ABG pH (7.35-7.45) ABG pCO2 (35-45) mmHg ABG pO2 (83-108) mmHg ABG Total CO2 (19-24) mmol/L Chloride (98-107) mmol/L BUN (7-17) mg/dL Creatinine (0.52-1.04) mg/dL Glucose (74-99) mg/dL POC Glucose (mg/dL) 174 H 165 H 128 H (75-99) mg/dL AST (14-36) U/L ALT (9-52) U/L Total Protein (6.3-8.2) g/dL Albumin (3.5-5.0) g/dL 06/05/17 06/05/17 06/05/17 Range/Units 04:15 04:15 04:22 RBC 2.75 L (3.80-5.40) m/uL Hgb 7.8 L (11.4-16.0) gm/dL Hct 24.3 L (34.0-46.0) % RDW 15.7 H (11.5-15.5) % Plt Count 122 L (150-450) k/uL ABG pH (7.35-7.45) ABG pCO2 (35-45) mmHg ABG pO2 (83-108) mmHg ABG Total CO2 (19-24) mmol/L Chloride 109 H (98-107) mmol/L BUN 28 H (7-17) mg/dL Creatinine 1.20 H (0.52-1.04) mg/dL Glucose 142 H (74-99) mg/dL POC Glucose (mg/dL) 123 H (75-99) mg/dL AST 107 H (14-36) U/L ALT 87 H (9-52) U/L Total Protein 4.7 L (6.3-8.2) g/dL Albumin 2.8 L (3.5-5.0) g/dL 06/05/17 06/05/17 06/05/17 Range/Units 04:59 06:24 07:06 RBC (3.80-5.40) m/uL Hgb (11.4-16.0) gm/dL Hct (34.0-46.0) % RDW (11.5-15.5) % Plt Count (150-450) k/uL ABG pH (7.35-7.45) ABG pCO2 (35-45) mmHg ABG pO2 (83-108) mmHg ABG Total CO2 (19-24) mmol/L Chloride (98-107) mmol/L BUN (7-17) mg/dL Creatinine (0.52-1.04) mg/dL Glucose (74-99) mg/dL POC Glucose (mg/dL) 171 H 173 H 169 H (75-99) mg/dL AST (14-36) U/L ALT (9-52) U/L Total Protein (6.3-8.2) g/dL Albumin (3.5-5.0) g/dL 06/05/17 06/05/17 06/05/17 Range/Units 08:09 08:19 09:06 RBC (3.80-5.40) m/uL Hgb (11.4-16.0) gm/dL Hct (34.0-46.0) % RDW (11.5-15.5) % Plt Count (150-450) k/uL ABG pH 7.48 H (7.35-7.45) ABG pCO2 33 L (35-45) mmHg ABG pO2 73 L (83-108) mmHg ABG Total CO2 26 H (19-24) mmol/L Chloride (98-107) mmol/L BUN (7-17) mg/dL Creatinine (0.52-1.04) mg/dL Glucose (74-99) mg/dL POC Glucose (mg/dL) 164 H 168 H (75-99) mg/dL AST (14-36) U/L ALT (9-52) U/L Total Protein (6.3-8.2) g/dL Albumin (3.5-5.0) g/dL Microbiology - Last 24 Hours (Table) 06/02/17 01:03 Gram Stain - Final Sputum Sputum Culture - Final - Imaging and Cardiology Chest x-ray: report reviewed, image reviewed Assessment and Plan (1) History of right breast cancer Current Visit: Yes Status: Acute Code(s): Z85.3 - PERSONAL HISTORY OF MALIGNANT NEOPLASM OF BREAST SNOMED Code(s): 875787704 (2) Non-STEMI (non-ST elevated myocardial infarction) Current Visit: Yes Status: Acute Code(s): I21.4 - NON-ST ELEVATION (NSTEMI) MYOCARDIAL INFARCTION SNOMED Code(s): 195945646 (3) Diabetes mellitus Current Visit: Yes Status: Chronic Code(s): E11.9 - TYPE 2 DIABETES MELLITUS WITHOUT COMPLICATIONS SNOMED Code(s): 30887192 (4) Family history of premature coronary artery disease Current Visit: Yes Status: Chronic Code(s): Z82.49 - FAMILY HX OF ISCHEM HEART DIS AND OTH DIS OF THE CIRC SYS SNOMED Code(s): 809880733 (5) History of heart artery stent Current Visit: Yes Status: Chronic Code(s): Z95.5 - PRESENCE OF CORONARY ANGIOPLASTY IMPLANT AND GRAFT SNOMED Code(s): 273292198 (6) Hyperlipidemia Current Visit: Yes Status: Chronic Code(s): E78.5 - HYPERLIPIDEMIA, UNSPECIFIED SNOMED Code(s): 53435758 (7) Hypertension Current Visit: Yes Status: Chronic Code(s): I10 - ESSENTIAL (PRIMARY) HYPERTENSION SNOMED Code(s): 47890385 (8) Morbid obesity with BMI of 40.0-44.9, adult Current Visit: Yes Status: Chronic Code(s): E66.01 - MORBID (SEVERE) OBESITY DUE TO EXCESS CALORIES; Z68.41 - BODY MASS INDEX (BMI) 40.0-44.9, ADULT SNOMED Code(s): 073903243 (9) History of sudden cardiac arrest successfully resuscitated Current Visit: Yes Status: Acute Code(s): Z86.74 - PERSONAL HISTORY OF SUDDEN CARDIAC ARREST SNOMED Code(s): 015856837 Plan: 1. Continue aspirin, Plavix, statin, metoprolol and subcu heparin. We will increase the metoprolol tartrate to 25 mg per OG tube twice a day 2. Dietitian for tube feed recommendations. Tube feedings will be increased to a goal rate of 45 mL per hour and her water flushes will be increased to 50 mL every 4 hours. 3. Wean norepinephrine drip to keep blood pressure greater than 100 mmHg systolic. 4. Continue Primacor to 0.125 mcg/kg/m and leave running until extubated. 5. Mechanical ventilator management and recommendations per pulmonary medicine. 6. Medical management and insulin management per primary care service. 7. DVT and GI prophylaxis. Knee-high DIVINE hose and sequential compression devices in place. 8. Continue amiodarone drip, prophylaxis for ventricular arrhythmias and atrial fibrillation. 9. Keep her left pleural chest tube in place to low continuous wall suction - 20 cm H2O. 10. Replace potassium per protocol. 11. Monitor daily labs and chest x-rays. 12. Bedside bronchoscopy with left lower lobe lavage will be completed by Dr. Waddell this a.m. 13. Consult interventional radiology for left arm PICC line placement. 14. Discontinue [place]-Bouchra catheter today and discontinue cordis once PICC line is placed. 15. More recommendations to follow as the patient progresses in her care. Time with Patient: Greater than 30
[2017-06-05 10:46] LABS: Glucose,Whole Blood 163 mg/dL (75-99)
[2017-06-05] MEDS: LEVOFLOXACIN 500MG-D5W PMX 500 MG in DEXTROSE/WATER 1 100ML.BAG IVPB SCH (10:46)
[2017-06-05 11:01] LABS: Glucose,Whole Blood 161 mg/dL (75-99)
--- NOTE | 2017-06-05 11:53 | P.PN ---
Subjective Progress Note Date: 06/05/17 Principal diagnosis: Acute cardiac arrest, ventricular fibrillation, status post CPR. On today's evaluation of 05/30/2017 the patient is being seen in follow-up. The patient is resting comfortably in bed. Noted the patient was seen yesterday for a preoperative cardiac clearance. I had a lengthy discussion with her. The patient has morbid obesity, COPD and addition to severe obstructive sleep apnea. The patient with kidney and increased risk of developing postoperative pulmonary complications should thoracotomy and bypass surgery is done. Nevertheless, weighing the risks and benefits, the patient should be able to undertake these risks. For now the patient IV heparin. Her troponins came back positive at 0.038, 0.035 and 0.0 26. The patient's family chest pain for now. CV surgery is on the case. The patient is off Plavix. The patient is being considered for coronary artery bypass surgery next week. She is hemodynamically stable at this point. No cough sputum production or chest that is so wheezing. She tells me that her BiPAP machine was taken away from her as the patient did not demonstrate adequate data as she was hospitalized for pneumonia. Her pneumonia essentially cleared showed no parenchymal lung abnormalities. There is no mediastinal lymphadenopathy. There was a large right axillary lesion measuring 6.5 x 4.8 cm in size ejection of a cyst with overlying scar. Her was a small right-sided pleural effusion with some mild atelectatic changes and mild diffuse bronchial wall thickening without consolidation, and there is a l small hiatal hernia. A 2.4 cm left of the nodule was also seen which is a adenoma and the patient has compression deformity of the level of T11. On 05/31/2017 the patient is free of any chest pain. The patient remains on IV heparin. She'll be kept in the hospital awaiting her surgery. The patient had a blood gases on room air and she demonstrated pH of 7.46 with a pCO2 of 40 and pO2 of 68 and this was done on room air. The cyst in her right axilla was noted. Apparently this was drained on multiple occasions by general surgery and she tells that there is no evidence of any malignancy found on previous drainage procedures. I discussed the case with interventional radiology. We found that there was no need to repeated drainages long as the patient has been drained in the past and the structures of the cystic rather than malignant or solids. On 06/01/2017, the patient is stable and the patient has no new complaints. Simply of any chest pain. She is ambulating. 95% pulse ox on 3 selection by nasal cannula. She is afebrile. No cardiac arrhythmias. No other complaints otherwise for now. Tentative plan is to proceed with surgery next week. On 06/02/2017, the patient is being seen him follow-up. Currently she is interested intensive care unit intubated on a mechanical ventilator. The events that occurred overnight was noted. The patient acutely went into V. fib at around 10:00 and the patient received CPR and defibrillation. The exact downtime was less than 5 minutes. The patient received a total of 2 defibrillation 3 rounds of epinephrine. There was return of spontaneous circulation. The patient was intubated and brought to the intensive care unit. This morning she is sedated With Diprivan and currently Diprivan is running at 50 mics. I was told that the patient was able to follow commands following her cardiac arrest and neurologically seems to be intact despite his underlying cardiac arrest. The patient is on no pressors. Currently she is on assist control mode of ventilation at the rate of 16, tidal volume of 450, FiO2 of 60% and a PEEP of 5. The patient's pH is at 7.39 with a pCO2 of 41 and pO2 of 117. Chest x-ray shows adequate positioning of the ET tube. The patient also has a orogastric tube in place. She is nothing by mouth for now. She has adequate pulses in all 4 extremities. She is calm and comfortable. She is producing urine output in the order of 100 mL an hour. No further cardiac arrhythmias have been noted. The patient was given amiodarone bolus 10 mg and currently she is on a maintenance amiodarone of 0.5 mg/m. Rest of the blood pressure medications are on hold. Beta doretha was given this morning and the patient received Lopressor 25 mg orally. The case was discussed with cardiothoracic surgery. It seems that the patient will need emergent coronary artery bypass surgery and the patient will be taken to the operating room today. On 06/03/2017 I'm seeing this patient for a follow-up. The patient underwent four-vessel bypass surgery. This was done in the afternoon yesterday and the patient arrived back to the intensive care unit around 11 PM. Preoperatively, there has been difficulties with oxygenation and metabolic acidosis. Overall the patient received a total of 6 bicarb amps and the patient arrived to the intensive care unit quite stable on 7 mics of norepinephrine infusion and 1 g of epinephrine infusion.. She was producing adequate amount of urine output and she was hemodynamically stable. Necessary vent changes were done overnight and this morning the patient is on a assist-control mode at the rate of 18, tidal volume of 550, FiO2 has been weaned down to 60% and the current PEEP is at 10. Most recent blood gases showed a pH of 7.46 with a pCO2 of 38 and pO2 of 84 and this was done and FiO2 of 80%. Chest x-ray shows adequate expansion of both lungs. Lung volumes are small. ET tube is in a good location. The patient has 2 chest tubes 1 mediastinal and 1 pleural. No evidence of any pneumothorax. NG tube is in a good location. This morning, the patient is sedated with Diprivan and she is calm and comfortable. We have noted some increased activity in the right upper extremity compared to the left. Note that she is a post cardiac arrest. Mental status was checked preoperatively and she was following some simple commands. In any rate, she is still on Diprivan and Diprivan will be continued as long as the patient is not ready to wean yet. This morning she is on 2 mics of norepinephrine infusion. Cardiac index is at 2.4. Her PA pressures around 35/26, and the chest tube output has been 170 mL from the left pleural and 50s on the mediastinal. No evidence of any air leak. We will lobe and this morning is at 8.7. Correlation profile shows an INR of 1.3 with a PTT of 68. IV heparin was discontinued. Patient was evaluated today on 06/04/2017, remains on mechanical ventilation, her ventilator settings are FiO2 of 65%, tidal volume of 500 assist control rate of 18 and PEEP of 8. ABG showed a pO2 of 62 pCO2 of 34 pH of 7.48. Hence the FiO2 was increased from 60% to 65% and PEEP was increased to 8 as above. Rest of the labs were reviewed the seem to be relatively unremarkable. Chest x- ray showed what seems to be a left lower lobe consolidation. And atelectasis. Hemoglobin is 7.7. Her last echocardiogram showed good LV function. Patient remains on inotropes, but minimal doses. Remains on amiodarone, and she is also on insulin. Chest x-ray showed minimal pulmonary vascular congestion, and atelectasis mostly at the left base. Patient was reevaluated today on 06/05/2017, presently on 60% FiO2, assist control rate was 18, volume of 500, and PEEP was increased to 10. ABG showed a pO2 of 73 pCO2 of 33 pH of 7.48. All labs were reviewed, renal functioning is basically about the same in the last 3 days a 1.20 creatinine, and BUN is 28. Chest x-ray was also reviewed and there is evidence of bibasilar atelectasis, mostly left lower lobe collapse was noted, and the patient underwent bronchoscopy after visualizing her chest x-ray today. PEEP was increased to 10. And the patient was started on empiric antibiotics in the form of Levaquin. Remains on 1 mcg/m of norepinephrine, patient is fully sedated on propofol, however we plan to place the patient on a sedation holiday, and hopefully assess for weaning parameters today. If possible. Patient is clearly not ready for weaning and extubation at this point. Cardiac-munguia she has intermittent episodes of atrial fibrillation, had 1 episode early this morning, presently in normal sinus rhythm. Objective - Vital Signs Vital signs: Vital Signs Temp 99.9 F H 06/05/17 05:00 Pulse 91 06/05/17 11:07 Resp 30 H 06/05/17 11:00 BP 134/76 06/05/17 10:34 Pulse Ox 95 06/05/17 11:00 Intake & Output 06/04/17 06/05/17 06/05/17 18:59 06:59 18:59 Intake Total 1630.887 958.200 571.488 Output Total 780 890 250 Balance 850.887 68.200 321.488 Weight 121 kg 126 kg 126 kg Intake: IV 682.8 351.7 218.5 0.9 for pressure 108 108 45 Amiodarone 16.7 183.7 83.5 CO/CI 80 60 10 Lactated Ringers 1,000 ml 220 80 @ 20 mls/hr IV .Q24H [facility] Rx#:[id number] Milrinone-D5w Pmx 20 mg 8.1 In Dextrose/Water 1 100ml .bag @ Per Protocol IV . Q0M [facility] Rx#:[id number] Vancomycin 1,750 mg In 250 Sodium Chloride 0.9% 250 ml @ 125 mls/hr IVPB Q16H [facility] Rx#:[id number] Intake, IV Titration 738.087 381.500 82.988 Amount Amiodarone 450 mg In 259 Dextrose 5% in Water 250 ml @ 1 MG/MIN 34.53 mls/ hr IV .Q7H31M PRN Rx#: [id number] Insulin Regular 100 unit 154.725 151.250 24.45 In Sodium Chloride 0.9% 100 ml @ Per Protocol IV .Q0M [facility] Rx#:[id number] Milrinone-D5w Pmx 20 mg 100 In Dextrose/Water 1 100ml .bag @ Per Protocol IV . Q0M [facility] Rx#:[id number] Norepinephrin 16 mg-0.9% 24.362 28.75 Ns Pmx 16 mg In 250 ml @ Titrate IV .Q0M [facility] Rx#: [id number] Propofol 1,000 mg In 200 230.25 29.788 Empty Bag 1 bag @ Titrate IV .Q0M [facility] Rx#: [id number] Tube Feeding 90 195 240 Other 120 30 30 Output: Chest Tube Drainage 175 180 40 Mediastinal 0 left pleural 175 180 40 Drainage 80 300 15 Right Lower Medial Calf 80 300 15 Urine 525 410 195 Other: Voiding Method Indwelling Catheter Indwelling Catheter Indwelling Catheter # Voids 2 # Bowel Movements 0 0 ABP, PAP, CO, CI - Last Documented Arterial Blood Pressure 94/52 Pulmonary Artery Pressure 32/21 Cardiac Output 5 Cardiac Index 2.4 - Exam - Exam Physical examination revealed a 66-year-old female, on mechanical ventilation, sedated, in no distress. - Constitutional General appearance: Does not seem to be in any form of distress., On mechanical ventilation. - EENT Eyes: PERRLA, EOMI. - Neck Details: Neck is supple, no neck masses, no thyromegaly, lives in the neck were noted endotracheal tube is intact. - Respiratory Details: Lung sounds with coarse rhonchi throughout, diminished bilateral bases. Respirations are symmetrical and unlabored with mechanical ventilator support. Mediastinal chest tube was removed yesterday. left pleural chest tubes without air leak. Chest tubes remained to low continuous wall suction -20 cm H2O. 500 mL of chest tube drainage in the last 24 hours. - Cardiovascular Details: Regular rhythm and rate. S1 and S2 present, negative for S3, gallop or murmur. Sternum is stable. Bedside telemetry showing normal sinus rhythm with bundle branch block and occasional PVC, heart rate 96. Heart hugger's in place. Atrial and ventricular epicardial pacemaker wires intact and hooked up to a backup bedside pacemaker generator. - Gastrointestinal Gastrointestinal Comment(s): Soft nontender no megaly no rebound no guarding, positive bowel sounds. - Genitourinary Genitourinary Comment(s): Lea catheter for accurate I&O. - Integumentary Integumentary Comment(s): Skin is warm and dry. No cyanosis or clubbing. - Neurologic Neurologic Comment(s): Patient remains sedated with Diprivan drip at this time cannot be assessed. - Musculoskeletal Musculoskeletal: Cannot be assessed. - Labs CBC & Chem 7: 06/05/17 04:15 06/05/17 10:45 Labs: Abnormal Lab Results - Last 24 Hours (Table) 06/04/17 06/04/17 06/04/17 Range/Units 12:14 13:21 15:17 RBC (3.80-5.40) m/uL Hgb (11.4-16.0) gm/dL Hct (34.0-46.0) % RDW (11.5-15.5) % Plt Count (150-450) k/uL ABG pH (7.35-7.45) ABG pCO2 (35-45) mmHg ABG pO2 (83-108) mmHg ABG Total CO2 (19-24) mmol/L Chloride (98-107) mmol/L BUN (7-17) mg/dL Creatinine (0.52-1.04) mg/dL Glucose (74-99) mg/dL POC Glucose (mg/dL) 125 H 116 H 116 H (75-99) mg/dL AST (14-36) U/L ALT (9-52) U/L Total Protein (6.3-8.2) g/dL Albumin (3.5-5.0) g/dL 06/04/17 06/04/17 06/04/17 Range/Units 18:32 20:25 21:59 RBC (3.80-5.40) m/uL Hgb (11.4-16.0) gm/dL Hct (34.0-46.0) % RDW (11.5-15.5) % Plt Count (150-450) k/uL ABG pH (7.35-7.45) ABG pCO2 (35-45) mmHg ABG pO2 (83-108) mmHg ABG Total CO2 (19-24) mmol/L Chloride (98-107) mmol/L BUN (7-17) mg/dL Creatinine (0.52-1.04) mg/dL Glucose (74-99) mg/dL POC Glucose (mg/dL) 119 H 114 H 113 H (75-99) mg/dL AST (14-36) U/L ALT (9-52) U/L Total Protein (6.3-8.2) g/dL Albumin (3.5-5.0) g/dL 06/04/17 06/05/17 06/05/17 Range/Units 23:13 00:04 01:35 RBC (3.80-5.40) m/uL Hgb (11.4-16.0) gm/dL Hct (34.0-46.0) % RDW (11.5-15.5) % Plt Count (150-450) k/uL ABG pH (7.35-7.45) ABG pCO2 (35-45) mmHg ABG pO2 (83-108) mmHg ABG Total CO2 (19-24) mmol/L Chloride (98-107) mmol/L BUN (7-17) mg/dL Creatinine (0.52-1.04) mg/dL Glucose (74-99) mg/dL POC Glucose (mg/dL) 152 H 174 H 165 H (75-99) mg/dL AST (14-36) U/L ALT (9-52) U/L Total Protein (6.3-8.2) g/dL Albumin (3.5-5.0) g/dL 06/05/17 06/05/17 06/05/17 Range/Units 03:06 04:15 04:15 RBC 2.75 L (3.80-5.40) m/uL Hgb 7.8 L (11.4-16.0) gm/dL Hct 24.3 L (34.0-46.0) % RDW 15.7 H (11.5-15.5) % Plt Count 122 L (150-450) k/uL ABG pH (7.35-7.45) ABG pCO2 (35-45) mmHg ABG pO2 (83-108) mmHg ABG Total CO2 (19-24) mmol/L Chloride 109 H (98-107) mmol/L BUN 28 H (7-17) mg/dL Creatinine 1.20 H (0.52-1.04) mg/dL Glucose 142 H (74-99) mg/dL POC Glucose (mg/dL) 128 H (75-99) mg/dL AST 107 H (14-36) U/L ALT 87 H (9-52) U/L Total Protein 4.7 L (6.3-8.2) g/dL Albumin 2.8 L (3.5-5.0) g/dL 06/05/17 06/05/17 06/05/17 Range/Units 04:22 04:59 06:24 RBC (3.80-5.40) m/uL Hgb (11.4-16.0) gm/dL Hct (34.0-46.0) % RDW (11.5-15.5) % Plt Count (150-450) k/uL ABG pH (7.35-7.45) ABG pCO2 (35-45) mmHg ABG pO2 (83-108) mmHg ABG Total CO2 (19-24) mmol/L Chloride (98-107) mmol/L BUN (7-17) mg/dL Creatinine (0.52-1.04) mg/dL Glucose (74-99) mg/dL POC Glucose (mg/dL) 123 H 171 H 173 H (75-99) mg/dL AST (14-36) U/L ALT (9-52) U/L Total Protein (6.3-8.2) g/dL Albumin (3.5-5.0) g/dL 06/05/17 06/05/17 06/05/17 Range/Units 07:06 08:09 08:19 RBC (3.80-5.40) m/uL Hgb (11.4-16.0) gm/dL Hct (34.0-46.0) % RDW (11.5-15.5) % Plt Count (150-450) k/uL ABG pH 7.48 H (7.35-7.45) ABG pCO2 33 L (35-45) mmHg ABG pO2 73 L (83-108) mmHg ABG Total CO2 26 H (19-24) mmol/L Chloride (98-107) mmol/L BUN (7-17) mg/dL Creatinine (0.52-1.04) mg/dL Glucose (74-99) mg/dL POC Glucose (mg/dL) 169 H 164 H (75-99) mg/dL AST (14-36) U/L ALT (9-52) U/L Total Protein (6.3-8.2) g/dL Albumin (3.5-5.0) g/dL 06/05/17 06/05/17 06/05/17 Range/Units 09:06 10:44 11:00 RBC (3.80-5.40) m/uL Hgb (11.4-16.0) gm/dL Hct (34.0-46.0) % RDW (11.5-15.5) % Plt Count (150-450) k/uL ABG pH (7.35-7.45) ABG pCO2 (35-45) mmHg ABG pO2 (83-108) mmHg ABG Total CO2 (19-24) mmol/L Chloride (98-107) mmol/L BUN (7-17) mg/dL Creatinine (0.52-1.04) mg/dL Glucose (74-99) mg/dL POC Glucose (mg/dL) 168 H 163 H 161 H (75-99) mg/dL AST (14-36) U/L ALT (9-52) U/L Total Protein (6.3-8.2) g/dL Albumin (3.5-5.0) g/dL Microbiology - Last 24 Hours (Table) 06/02/17 01:03 Gram Stain - Final Sputum Sputum Culture - Final Assessment and Plan Assessment: 1 acute hypoxic respiratory failure requiring intubation secondary to acute cardiac arrest, acute v fibrillation, resuscitated successfully, defibrillated and the patient is currently intubated on a mechanical ventilator. The acute episode of V. fib was probably ischemic in nature. The patient did not have any significant elevation of troponin the EKG today is sinus with a LBBB pattern 2 Symptomatic multivessel coronary artery disease involving the proximal and mid LAD, RCA and diffuse disease in the circumflex coronary artery, post IN, post four-vessel bypass surgery and the patient is postop day #2. Currently on 1 mics of levo fed. Adequate cardiac index and output. Hemodynamically stable. Not ready to wean yet and we are waiting further improvement in oxygenation prior to proceeding with weaning. Currently she is on 10 of PEEP with an FiO2 of 60%. Blood gases was noted. 3 . COPD, with a baseline FEV1 of 76% of predicted on outpatient basis. 4. Obstructive sleep apnea, with baseline AHI of 80, patient was prescribed BiPAP therapy at pressures 21/17 cm of water. 5. Obesity, 6. Coronary artery disease, with previous stenting 7. Recent hospitalization for right lung pneumonia at [facility] in March 2017. Patient had a thoracentesis for pleural effusion during that admission 8. Hyperlipidemia and hypertension hypertension 9. History of right breast cancer with lumpectomy/lymph node removal and radiation 10. GERD/reflux 11 a large cystic structure within the right axilla. Could be a recurrent breast cancer although this is a remote possibility. This has been addressed by many general surgeons out of town, and by Dr. trotter at one point. 12 diabetes mellitus, currently on insulin drip for blood sugar control 13 anemia, hemoglobin is at 7.8 14 strongly suspect pneumonia, possibly aspiration in nature considering her initial presentation of cardiac arrest requiring CPR as noted above. However the possibility of hospital-acquired pneumonia is not entirely ruled out. Plan: Continue present supportive care measures, continue to titrate FiO2 down, keep PEEP at 10 for now, i patient underwent bronchoscopy and lavage of the lower lobes, secretions were sent for different diagnostic studies. Empirically the patient was placed on antibiotics in the form of Levaquin 500 mg IV piggyback daily, this will be changed according to the bronchoalveolar lavage cultures . Patient had a temp of 101 earlier today. Critical care time is 35 minutes not including the time spent on bronchoscopy and BAL. Time with Patient: Greater than 30
--- NOTE | 2017-06-05 12:19 | PCN ---
PROCEDURE NOTE Operative report is bronchoscopy and bronchoalveolar lavage of the left lower lobe and right lower lobe. PREOPERATIVE DIAGNOSIS: Acute hypoxic respiratory failure, status post CABG, and bilateral lower lobe collapse and atelectasis. POSTOPERATIVE DIAGNOSIS: Acute hypoxic respiratory failure, status post CABG, and bilateral lower lobe collapse and atelectasis. ANESTHESIA USED: The patient was already on propofol drip. PROCEDURE: Patient was already on mechanical ventilation, and she was already monitored with continuous monitoring of the O2 saturation, blood pressure was continuously monitored, and cardiac rhythm was continuously monitored. The patient was placed on 100% FiO2 while on mechanical ventilation, and an adapter was applied to the endotracheal tube. The bronchoscope was advanced through the adapter down to the endotracheal tube, and purulent secretions were noted at the distal end of the endotracheal tube, which were suctioned. Examination of the megha was done. The right side was also examined including right upper lobe, right middle lobe, right lower lobe. The left side was examined, left upper lobe, lingula and left lower lobe. There was evidence of mostly loose purulent secretions noted in the left lower lobe basilar segments, and the same was also noted in the right lower lobe. Suctioning and lavage of the left lower lobe was done, and suctioning and lavage of the right lower lobe was also done. The purulent secretions were sent for different diagnostic studies. There was no evidence of mucous plugging, but there was significant purulent secretions noted in both lower lobes. The procedure was well tolerated. No evidence of any immediate complication. MMODL / IJN: [id number] /
[2017-06-05 13:13] LABS: Glucose,Whole Blood 186 mg/dL (75-99)
[2017-06-05 14:05] LABS: Glucose,Whole Blood 166 mg/dL (75-99)
[2017-06-05] MEDS ORDERED: LIDOCAINE 2% INJ 20 MG/ML IV ONE (14:15)
[2017-06-05] MEDS: POTASSIUM BICARBONATE/CIT AC 20 MEQ TABLET.EFF PO SCH (14:52)
--- NOTE | 2017-06-05 14:52 | XR ---
EXAMINATION TYPE: XR chest 1V portable DATE OF EXAM: 06/05/2017 HISTORY: Shortness of breath. COMPARISON: None. TECHNIQUE: Single view of the chest is submitted. FINDINGS: Left-sided PICC line appropriately placed. Left-sided chest tube is unchanged in position. No sizable pneumothorax. Basilar atelectasis and small pleural effusions. Indwelling tubes and catheters otherwise stable. Hilar and mediastinal structures are within normal limits. Degenerative changes are seen of the dorsal spine. IMPRESSION: 1. Essentially stable chest. PICC line as noted.
--- NOTE | 2017-06-05 15:18 | IR ---
PICC LINE PLACEMENT: HISTORY: Infection requiring long-term antibiotic therapy PROCEDURE: Ultrasound guidance of PICC line placement. COMPLICATIONS: None ANESTHESIA: 1. 1% Lidocaine locally. FINDINGS/TECHNIQUE: The procedure was explained to the patient. The risks, complications, benefits and alternatives were discussed and any questions were answered. Informed consent was obtained. The patient was placed supine on the fluoroscopic table and prepped and draped in the usual sterile fash ion. Utilizing a 21 gauge needle and sonographic guidance, access in the left basilic vein was achi eved and there is placement of a 0.018 guidewire. The vein is patent. A 5-F. sheath was placed over the guidewire. The guidewire and dilator were removed and a 5-F. Double lumen PICC line was placed through the sheath with the chest x-ray confirming the tip at the level of the SVC. The sheath was r emoved, the catheter was flushed and sutured into position. The patient was stable throughout the pr ocedure and remained stable upon discharge from the Department of Radiology. The vein puncture was patent under ultrasound. A willson scale image was obtained to document patency of the vein punctured. All elements of the maximal barrier technique were utilized. IMPRESSION: 1. Successful PICC line placement under ultrasound performed bedside within the ICU.
--- NOTE | 2017-06-05 15:28 | PN ---
PROGRESS NOTE Mrs. Kaufman remains intubated, weaning parameters were not good and she will remain intubated today. Her blood pressure is 98/52, 105/56 mmHg, pulse rate in the 80s. She is obese. Breath sounds are reduced bilaterally but equal. Heart sounds S1, S2 are soft. IMPRESSION: 1. Multivessel coronary artery disease. 2. Atrial fibrillation. 3. VF arrest in ischemic conversion. SUGGEST: Continue aspirin, statins, beta blockers, Plavix. The patient had atrial fibrillation with RVR and is on amiodarone. She is also on a Milrinone drip and norepinephrine drip. Continue ICU care. MMODL / IJN: [id number] /
[2017-06-05 16:02] LABS: Appearance,BF Cloudy; Color,BF Red; Nucleated Cells, Body Fluid 5800 /uL; RBC, Body Fluid 2650 /uL
[2017-06-05 16:03] LABS: Mononuclear WBC,Body Fluid 4 %; Polynuclear WBC,Body Fluid 96 %
[2017-06-05 16:26] LABS: Glucose,Whole Blood 188 mg/dL (75-99)
--- NOTE | 2017-06-05 16:40 | PN ---
PROGRESS NOTE DATE OF SERVICE: 06/05/17. PRESENT COMPLAINT: Intubated. INTERVAL HISTORY: This is a patient with history of acute TX, then a cardiac arrest and VFib, status post 4 vessel coronary bypass. Remains on the ventilator with FiO2 70 and a PEEP of 10. Telemetry shows currently sinus rhythm. Patient did go into atrial fibrillation last night, then reverted to sinus rhythm. The patient also did get bronchoscopy to look into the left lower lobe as patient is poor with weaning. The patient is taken off Levophed this morning. Current drips include amiodarone 0.5 mcg, insulin drip, Diprivan drip, Primacor drip. Tube feedings at goal at 45 mL an hour. Mediastinal tube was taken out. Patient has a left pleural chest tube. REVIEW OF SYSTEMS: Patient is intubated. CURRENT MEDICATIONS: Reviewed that include as above. PHYSICAL EXAMINATION: Temperature 99.9, pulse 90, respiration 25, blood pressure 126/62, pulse ox 98%. GENERAL APPEARANCE: Lying in bed, intubated. EYES: Pupils equal. Conjunctivae normal. HEENT: External appearance of nose and ears normal. Oral cavity, endotracheal tube in place. NECK: JVD unable to assess. Mass not palpable. RESPIRATORY: Effort normal. Lungs, diminished breath sounds. CARDIOVASCULAR: Heart sounds muffled. Minimal edema. ABDOMEN: Soft, nontender. Liver and spleen not palpable. CHEST: Chest tube in place. PSYCHIATRY: Unable to assess. NEUROLOGICAL: Pupils are equal, medium-sized. Conjunctiva normal. INVESTIGATIONS: White count 7.4, hemoglobin 7.8, platelets 122. Potassium 3.7, BUN 28, creatinine 1.20, albumin 2.8. ASSESSMENT: 1. A 4 vessel coronary bypass. 2. Coronary artery disease, prior history of stent. The patient presented with acute myocardial infarction on this admission followed by cardiac arrest with VFib. 3. Morbid obesity, BMI greater than 50. 4. Intermittent asthma. 5. Diabetes mellitus type 2, chronically requiring insulin, currently on insulin drip. 6. Gastroesophageal reflux disease. 7. Hyperlipidemia. 8. Obstructive sleep apnea, using a CPAP until recently. 9. Right mastectomy for cancer. 10.Right axillary lesion, being followed as an outpatient. 11.Bilateral nephrolithiasis asymptomatic. 12.Left adrenal nodule 2.5 cm. 13.Hypertensive heart disease. 14.Acute respiratory failure on ventilator assistance, failing to wean. 15.Acute blood loss anemia expected from surgery. 16.Dilutional thrombocytopenia. 17.Hypoalbuminemia as an acute phase reactant. 18.Paroxysmal atrial fibrillation, currently back in sinus rhythm. PLAN: Continue current medication and treatment plan. Care was discussed with the family at the bedside and also discussed with the nurse. The patient is status post bronchoscopy. MMODL / IJN: [id number] /
[2017-06-05] MEDS ORDERED: ACETAMINOPHEN IV (For NPO) 1,000 MG in EMPTY BAG 1 BAG IVPB PRN (17:21)
[2017-06-05 18:14] LABS: Glucose,Whole Blood 182 mg/dL (75-99)
[2017-06-05 19:06] LABS: Glucose,Whole Blood 176 mg/dL (75-99)
[2017-06-05 20:11] LABS: Glucose,Whole Blood 155 mg/dL (75-99)
[2017-06-05 21:25] LABS: Glucose,Whole Blood 156 mg/dL (75-99)
[2017-06-05] MEDS: SENNOSIDES-DOCUSATE SODIUM 1 EACH TAB PO SCH (21:28)
[2017-06-05] MEDS: METOPROLOL TARTRATE 25 MG TAB OG-TUBE SCH (21:29)
[2017-06-05 22:11] LABS: Glucose,Whole Blood 147 mg/dL (75-99)
[2017-06-05 23:10] LABS: Glucose,Whole Blood 146 mg/dL (75-99)
[2017-06-06] MEDS: IPRATROPIUM-ALBUTEROL 3 ML NEB INHALATION SCH ×7 (00:07→23:34)
[2017-06-06 00:08] LABS: Glucose,Whole Blood 144 mg/dL (75-99)
[2017-06-06] MEDS: HEPARIN SODIUM,PORCINE 5,000 UNIT/ML 1 ML VIAL SQ SCH ×4 (00:09→23:57)
[2017-06-06] MEDS: LACTATED RINGERS 1,000 ML IV SCH ×2 (00:10→23:55)
[2017-06-06] MEDS: PROPOFOL 1,000 MG in EMPTY BAG 1 BAG IV SCH ×7 (00:40→22:24)
[2017-06-06 01:11] LABS: Glucose,Whole Blood 127 mg/dL (75-99)
[2017-06-06 02:05] LABS: Glucose,Whole Blood 156 mg/dL (75-99)
[2017-06-06 03:01] LABS: Glucose,Whole Blood 165 mg/dL (75-99)
[2017-06-06] MEDS: MORPHINE SULFATE 4 MG/ML SYRINGE IVP PRN ×2 (04:31→22:45)
[2017-06-06 05:09] LABS: Glucose,Whole Blood 128 mg/dL (75-99)
[2017-06-06 05:18] LABS: Basophils % (A) 1 %; Eosinophils # (A) 0.1 k/uL (0-0.7); Eosinophils % (A) 2 %; HCT 23.3 % (34.0-46.0); HGB 7.4 gm/dL (11.4-16.0); Hypochromasia Slight; Lymphocytes # (A) 0.8 k/uL (1.0-4.8); Lymphocytes % (A) 14 %; MCH 28.2 pg (25.0-35.0); MCHC 31.8 g/dL (31.0-37.0); MCV 88.8 fL (80.0-100.0); Mean Platelet Volume 10.3; Monocytes # (A) 0.3 k/uL (0-1.0); Monocytes % (A) 5 %; Neutrophils # (A) 4.4 k/uL (1.3-7.7); Neutrophils % (A) 75 %; Platelet Count 112 k/uL (150-450); RBC 2.63 m/uL (3.80-5.40); RDW 15.6 % (11.5-15.5); WBC 5.9 k/uL (3.8-10.6)
[2017-06-06 05:29] LABS: Ionized Calcium 5.4 mg/dL (4.5-5.3)
[2017-06-06 05:46] LABS: Albumin 2.6 g/dL (3.5-5.0); Calcium 8.9 mg/dL (8.4-10.2); Magnesium 2.3 mg/dL (1.6-2.3); Phosphorus 3.8 mg/dL (2.5-4.5); Potassium 3.7 mmol/L (3.5-5.1); Total Bilirubin 0.8 mg/dL (0.2-1.3); Total Protein 4.8 g/dL (6.3-8.2)
[2017-06-06] MEDS ORDERED: POTASSIUM BICARBONATE/CIT AC 20 MEQ TABLET.EFF NG-TUBE SCH ×2 (06:00→13:00)
[2017-06-06] MEDS: INSULIN REGULAR 100 UNIT in SODIUM CHLORIDE 0.9% 100 ML IV SCH ×3 (06:09→20:17)
[2017-06-06 06:10] LABS: Glucose,Whole Blood 156 mg/dL (75-99)
[2017-06-06] MEDS: MILRINONE-D5W PMX 20 MG in DEXTROSE/WATER 1 100ML.BAG IV SCH (06:13)
[2017-06-06] MEDS: AMIODARONE 450 MG in DEXTROSE 5% IN WATER 250 ML IV PRN ×2 (06:52)
[2017-06-06 07:10] LABS: Glucose,Whole Blood 174 mg/dL (75-99)
[2017-06-06 07:50] LABS: ABG Base Excess 0.2 mmol/L; ABG HCO3 25 mmol/L (21-25); ABG Oxygen Saturation 93.4 % (94-97); ABG PCO2 43 mmHg (35-45); ABG PH 7.38 (7.35-7.45); ABG PO2 71 mmHg (83-108); ABG TCO2 27 mmol/L (19-24)
[2017-06-06 08:08] LABS: Glucose,Whole Blood 164 mg/dL (75-99)
--- NOTE | 2017-06-06 08:29 | XR ---
EXAMINATION TYPE: XR chest 1V DATE OF EXAM: 06/06/2017 COMPARISON: 06/05/2017 INDICATION: Post cardiac surgery TECHNIQUE: Single frontal view of the chest is obtained semiupright position. FINDINGS: The heart size is borderline in size. The pulmonary vasculature is normal. There is a small left pleural effusion. Left-sided chest tube is present. No pneumothorax is evident. Right side sheath appears to be present with the tip in the subclavian region or proximal superior v leona cava. Endotracheal tube is present with the tip above the megha. Nasogastric tube transverses the thorax w ith tip in left upper quadrant of the abdomen. IMPRESSION: 1. Multiple lines and catheters discussed above, stable in position. 2. Small left pleural effusion and/or infiltrate at the left base, stable.
[2017-06-06] MEDS: MUPIROCIN 2% OINT 22 GM TUBE NASAL SCH (08:45)
[2017-06-06] MEDS: CHLORHEXIDINE GLUCONATE 15 ML CUP MUCOUS MEM SCH ×2 (08:45→20:22)
[2017-06-06] MEDS: CLOPIDOGREL 75 MG TAB PO SCH (08:46)
[2017-06-06] MEDS: METOPROLOL TARTRATE 25 MG TAB OG-TUBE SCH ×2 (08:46→20:22)
[2017-06-06] MEDS: ASPIRIN 325 MG TAB PO SCH (08:46)
[2017-06-06] MEDS: ATORVASTATIN 40 MG TAB PO SCH (08:46)
[2017-06-06] MEDS: PANTOPRAZOLE 40 MG/10 ML VIAL IVP SCH (08:56)
[2017-06-06] MEDS: POTASSIUM BICARBONATE/CIT AC 20 MEQ TABLET.EFF PO SCH (08:56)
[2017-06-06 09:05] LABS: Glucose,Whole Blood 115 mg/dL (75-99)
--- NOTE | 2017-06-06 09:31 | P.VSCSTY ---
Greater Saphenous Vein Mapping This is bilateral lower extremity greater saphenous vein mapping. Date of service 05/29/2017 Vein quality and ultrasound appearance no intraluminal thrombus or wall changes. Vein size groin right 7.2 x 9.4 groin left 8.5 x 9.0 High thigh right 5.2 x 5.4 high thigh left 6.7 x 7.6 Mid thigh right 5.0 x 4.8 mid thigh left 5.3 x 6.9 Above-knee right 4.6 x 4.9 above-knee left 4.4 x 4.3 Below knee right 4.1 x 5.6 below-knee left 4.2 x 5.5 Mid calf right 3.2 x 3.9 mid calf left 3.5 x 4.3 Ankle right 3.4 x 3.6 ankle left 3.9 x 5.2 Impression usable bilateral greater saphenous vein. Lower legs probably more size appropriate..
[2017-06-06] MEDS: AMIODARONE 200 MG TAB PO SCH ×2 (10:03→20:22)
[2017-06-06 10:12] LABS: Glucose,Whole Blood 191 mg/dL (75-99)
[2017-06-06 11:03] LABS: ABG Base Excess -1.9 mmol/L; ABG HCO3 23 mmol/L (21-25); ABG PCO2 42 mmHg (35-45); ABG PH 7.36 (7.35-7.45); ABG PO2 288 mmHg (83-108); ABG Potassium Whole Blood 4.2 mmol/L (3.4-4.5); ABG Sodium Whole Blood 138 mmol/L (135-146); ABG TCO2 25 mmol/L (19-24)
[2017-06-06 11:03] LABS: Glucose,Whole Blood 181 mg/dL (75-99)
[2017-06-06 11:03] LABS: ABG Base Excess -1.5 mmol/L; ABG HCO3 24 mmol/L (21-25); ABG Oxygen Saturation 99.7 % (94-97); ABG PCO2 45 mmHg (35-45); ABG PH 7.34 (7.35-7.45); ABG PO2 169 mmHg (83-108); ABG Potassium Whole Blood 4.8 mmol/L (3.4-4.5); ABG Sodium Whole Blood 137 mmol/L (135-146); ABG TCO2 26 mmol/L (19-24)
[2017-06-06 11:03] LABS: ABG Base Excess -2.4 mmol/L; ABG HCO3 23 mmol/L (21-25); ABG Oxygen Saturation 95.3 % (94-97); ABG PCO2 43 mmHg (35-45); ABG PH 7.34 (7.35-7.45); ABG PO2 81 mmHg (83-108); ABG Potassium Whole Blood 3.7 mmol/L (3.4-4.5); ABG Sodium Whole Blood 141 mmol/L (135-146); ABG TCO2 25 mmol/L (19-24)
[2017-06-06 11:04] LABS: ABG Base Excess -7.2 mmol/L; ABG HCO3 21 mmol/L (21-25); ABG PCO2 54 mmHg (35-45); ABG PO2 71 mmHg (83-108); ABG Potassium Whole Blood 3.9 mmol/L (3.4-4.5); ABG Sodium Whole Blood 143 mmol/L (135-146); ABG TCO2 22 mmol/L (19-24)
[2017-06-06 11:04] LABS: ABG HCO3 23 mmol/L (21-25); ABG PCO2 44 mmHg (35-45); ABG PH 7.32 (7.35-7.45); ABG PO2 341 mmHg (83-108); ABG Potassium Whole Blood 4.9 mmol/L (3.4-4.5); ABG Sodium Whole Blood 138 mmol/L (135-146); ABG TCO2 24 mmol/L (19-24)
[2017-06-06 11:04] LABS: ABG Base Excess -13.2 mmol/L; ABG HCO3 16 mmol/L (21-25); ABG Oxygen Saturation 77.5 % (94-97); ABG PCO2 56 mmHg (35-45); ABG PO2 60 mmHg (83-108); ABG Potassium Whole Blood 4.5 mmol/L (3.4-4.5); ABG Sodium Whole Blood 139 mmol/L (135-146); ABG TCO2 18 mmol/L (19-24)
[2017-06-06 11:05] LABS: ABG Base Excess -5.1 mmol/L; ABG HCO3 21 mmol/L (21-25); ABG Oxygen Saturation 93.6 % (94-97); ABG PCO2 43 mmHg (35-45); ABG PO2 72 mmHg (83-108); ABG Potassium Whole Blood 4.1 mmol/L (3.4-4.5); ABG Sodium Whole Blood 146 mmol/L (135-146); ABG TCO2 22 mmol/L (19-24)
[2017-06-06 11:05] LABS: ABG HCO3 22 mmol/L (21-25); ABG Oxygen Saturation 90.2 % (94-97); ABG PCO2 51 mmHg (35-45); ABG PH 7.25 (7.35-7.45); ABG PO2 66 mmHg (83-108); ABG Potassium Whole Blood 4.3 mmol/L (3.4-4.5); ABG Sodium Whole Blood 145 mmol/L (135-146); ABG TCO2 24 mmol/L (19-24)
[2017-06-06 11:05] LABS: ABG Base Excess -3.5 mmol/L; ABG HCO3 23 mmol/L (21-25); ABG Oxygen Saturation 88.5 % (94-97); ABG PCO2 47 mmHg (35-45); ABG PH 7.29 (7.35-7.45); ABG PO2 59 mmHg (83-108); ABG Potassium Whole Blood 3.8 mmol/L (3.4-4.5); ABG Sodium Whole Blood 148 mmol/L (135-146); ABG TCO2 24 mmol/L (19-24)
[2017-06-06] MEDS: LEVOFLOXACIN 500MG-D5W PMX 500 MG in DEXTROSE/WATER 1 100ML.BAG IVPB SCH (11:13)
[2017-06-06 11:16] LABS: ABG PH 7.06 (7.35-7.45)
[2017-06-06 11:19] LABS: ABG PH 7.19 (7.35-7.45)
--- NOTE | 2017-06-06 11:19 | P.PN ---
Subjective Progress Note Date: 06/06/17 Principal diagnosis: Diffuse severe calcific coronary artery disease. Non-ST elevation myocardial infarction. Preserved left ventricular function with preoperative ejection fraction of 50-55%. Mild mitral valve regurgitation. Status post ventricular fibrillation arrest. Previous medical history of hypertension, hyperlipidemia, insulin dependent diabetes mellitus with current hemoglobin A1c 9.4%, previous myocardial infarction with stent placement to the RCA in 2010, obesity, obstructive sleep apnea, recent pneumonia in March 2017, previous tobacco dependence with preoperative FEV1 77% of predicted and preoperative arterial blood gas on room air pH 7.46, pCO2 40, pO2 68, HCO3 28, right breast cancer with lumpectomy and radiation, and family history of premature coronary artery disease. POD #4 urgent coronary artery bypass grafting 4 using the left internal mammary artery to the left anterior descending artery, reverse saphenous vein graft from the aorta to the distal posterior descending artery, reverse saphenous vein graft from the aorta to the ramus intermedius artery, reverse saphenous vein graft from the aorta to the second diagonal artery. Endoscopic harvesting of the right greater saphenous vein. Intraoperative transesophageal echocardiogram and epi-aortic scanning. Intraoperative graft flow measurements using the Melodigramstim system. Status post preoperative ventricular fibrillation arrest with successful resuscitation. Postoperative prolonged mechanical ventilation secondary to hemodynamic instability, an unexpected but potential outcome of surgery. Postoperative atrial fibrillation, an unexpected but potential outcome of surgery. Patient currently laying in bed in no acute distress on mechanical ventilation. Unable to wean at this time secondary to higher FiO2/PEEP needs for oxygenation. Bronchoscopy performed yesterday by Dr. Waddell with purulent secretions removed. Remains on Primacor. Objective - Vital Signs Vital signs: Vital Signs Temp 99.1 F 06/06/17 04:00 Pulse 80 06/06/17 10:15 Resp 27 H 06/06/17 10:00 BP 107/51 06/06/17 10:00 Pulse Ox 95 06/06/17 10:00 Intake & Output 06/05/17 06/06/17 06/06/17 18:59 06:59 18:59 Intake Total 4432.079 5110.605 748.667 Output Total 700 1080 345 Balance 133.852 7496.605 403.667 Weight 126 kg 125.5 kg Intake: IV 538.4 685.3 242.2 0.9 for pressure 108 42 21 Amiodarone 200.4 200.4 66.8 CO/CI 10 Lactated Ringers 1,000 ml 220 400 140 @ 20 mls/hr IV .Q24H [facility] Rx#:[id number] Milrinone-D5w Pmx 20 mg 3.9 In Dextrose/Water 1 100ml .bag @ Per Protocol IV . Q0M [facility] Rx#:[id number] primacor 39.0 14.4 Intake, IV Titration 229.750 544.305 166.467 Amount Insulin Regular 100 unit 101.000 170.450 52.300 In Sodium Chloride 0.9% 100 ml @ Per Protocol IV .Q0M [facility] Rx#:[id number] Norepinephrin 16 mg-0.9% 28.75 Ns Pmx 16 mg In 250 ml @ Titrate IV .Q0M [facility] Rx#: [id number] Propofol 1,000 mg In 100.000 373.855 114.167 Empty Bag 1 bag @ Titrate IV .Q0M [facility] Rx#: [id number] Tube Feeding 690 675 180 Other 80 330 160 Output: Chest Tube Drainage 110 220 140 left pleural 110 220 140 Drainage 30 130 30 Right Lower Medial Calf 30 130 30 Urine 560 730 175 Other: Voiding Method Indwelling Catheter Indwelling Catheter ABP, PAP, CO, CI - Last Documented Arterial Blood Pressure 115/61 Pulmonary Artery Pressure 33/21 Cardiac Output 5 Cardiac Index 2.4 - Constitutional General appearance: Present: no acute distress, obese - Respiratory Details: Lungs sounds diminished bilaterally. Respirations even, nonlabored on mechanical ventilation. Current settings assist control mode, FiO2 60%, tidal volume 500, respiratory rate 18, PEEP 10. 8.0 ET tube present, 20 to the lip. Left pleural chest tube to continuous wall suction, 190 mL thin serosanguineous drainage overnight, 350 mL last 24 hours. - Cardiovascular Details: S1, S2 present. Regular rate and rhythm, sinus rhythm on telemetry. Sternum stable. A/V epicardial pacemaker wires present, grounded. Palpable peripheral pulses bilaterally. Generalized edema present. Right internal jugular Cordis, left femoral arterial line present. Antiembolism stockings, SCDs, heart hugger in place. - Gastrointestinal Gastrointestinal Comment(s): Abdomen soft, nontender, nondistended. Active bowel sounds 4 quadrants. OG tube present, currently receiving tube feeding at 45 mL per hour with minimal residual per nursing. No bowel movement since surgery. - Genitourinary Genitourinary Comment(s): Lea present draining clear, yellow urine. Output 45 85 mL/h overnight. - Integumentary Integumentary Comment(s): Skin is warm and dry with evidence of good perfusion. Anterior chest incision well approximated and covered with dry intact dressing. Right lower extremity EVH site well approximated with DREW drain in place draining minimal thin serous drainage. - Neurologic Neurologic Comment(s): Currently sedated with propofol. - Allied health notes Allied health notes reviewed: nursing - Labs CBC & Chem 7: 06/06/17 05:10 06/06/17 05:10 Labs: Abnormal Lab Results - Last 24 Hours (Table) 06/05/17 06/05/17 06/05/17 Range/Units 11:00 13:11 14:03 RBC (3.80-5.40) m/uL Hgb (11.4-16.0) gm/dL Hct (34.0-46.0) % RDW (11.5-15.5) % Plt Count (150-450) k/uL Lymphocytes # (1.0-4.8) k/uL ABG pO2 (83-108) mmHg ABG Total CO2 (19-24) mmol/L ABG O2 Saturation (94-97) % Chloride (98-107) mmol/L BUN (7-17) mg/dL Creatinine (0.52-1.04) mg/dL Glucose (74-99) mg/dL POC Glucose (mg/dL) 161 H 186 H 166 H (75-99) mg/dL Ionized Calcium Divina (4.5-5.3) mg/dL AST (14-36) U/L ALT (9-52) U/L Total Protein (6.3-8.2) g/dL Albumin (3.5-5.0) g/dL 06/05/17 06/05/17 06/05/17 Range/Units 16:23 18:13 19:04 RBC (3.80-5.40) m/uL Hgb (11.4-16.0) gm/dL Hct (34.0-46.0) % RDW (11.5-15.5) % Plt Count (150-450) k/uL Lymphocytes # (1.0-4.8) k/uL ABG pO2 (83-108) mmHg ABG Total CO2 (19-24) mmol/L ABG O2 Saturation (94-97) % Chloride (98-107) mmol/L BUN (7-17) mg/dL Creatinine (0.52-1.04) mg/dL Glucose (74-99) mg/dL POC Glucose (mg/dL) 188 H 182 H 176 H (75-99) mg/dL Ionized Calcium Divina (4.5-5.3) mg/dL AST (14-36) U/L ALT (9-52) U/L Total Protein (6.3-8.2) g/dL Albumin (3.5-5.0) g/dL 06/05/17 06/05/17 06/05/17 Range/Units 20:09 21:23 22:03 RBC (3.80-5.40) m/uL Hgb (11.4-16.0) gm/dL Hct (34.0-46.0) % RDW (11.5-15.5) % Plt Count (150-450) k/uL Lymphocytes # (1.0-4.8) k/uL ABG pO2 (83-108) mmHg ABG Total CO2 (19-24) mmol/L ABG O2 Saturation (94-97) % Chloride (98-107) mmol/L BUN (7-17) mg/dL Creatinine (0.52-1.04) mg/dL Glucose (74-99) mg/dL POC Glucose (mg/dL) 155 H 156 H 147 H (75-99) mg/dL Ionized Calcium Divina (4.5-5.3) mg/dL AST (14-36) U/L ALT (9-52) U/L Total Protein (6.3-8.2) g/dL Albumin (3.5-5.0) g/dL 06/05/17 06/06/17 06/06/17 Range/Units 23:07 00:05 01:07 RBC (3.80-5.40) m/uL Hgb (11.4-16.0) gm/dL Hct (34.0-46.0) % RDW (11.5-15.5) % Plt Count (150-450) k/uL Lymphocytes # (1.0-4.8) k/uL ABG pO2 (83-108) mmHg ABG Total CO2 (19-24) mmol/L ABG O2 Saturation (94-97) % Chloride (98-107) mmol/L BUN (7-17) mg/dL Creatinine (0.52-1.04) mg/dL Glucose (74-99) mg/dL POC Glucose (mg/dL) 146 H 144 H 127 H (75-99) mg/dL Ionized Calcium Divina (4.5-5.3) mg/dL AST (14-36) U/L ALT (9-52) U/L Total Protein (6.3-8.2) g/dL Albumin (3.5-5.0) g/dL 06/06/17 06/06/17 06/06/17 Range/Units 02:04 03:00 05:07 RBC (3.80-5.40) m/uL Hgb (11.4-16.0) gm/dL Hct (34.0-46.0) % RDW (11.5-15.5) % Plt Count (150-450) k/uL Lymphocytes # (1.0-4.8) k/uL ABG pO2 (83-108) mmHg ABG Total CO2 (19-24) mmol/L ABG O2 Saturation (94-97) % Chloride (98-107) mmol/L BUN (7-17) mg/dL Creatinine (0.52-1.04) mg/dL Glucose (74-99) mg/dL POC Glucose (mg/dL) 156 H 165 H 128 H (75-99) mg/dL Ionized Calcium Divina (4.5-5.3) mg/dL AST (14-36) U/L ALT (9-52) U/L Total Protein (6.3-8.2) g/dL Albumin (3.5-5.0) g/dL 06/06/17 06/06/17 06/06/17 Range/Units 05:10 05:10 06:07 RBC 2.63 L (3.80-5.40) m/uL Hgb 7.4 L (11.4-16.0) gm/dL Hct 23.3 L (34.0-46.0) % RDW 15.6 H (11.5-15.5) % Plt Count 112 L (150-450) k/uL Lymphocytes # 0.8 L (1.0-4.8) k/uL ABG pO2 (83-108) mmHg ABG Total CO2 (19-24) mmol/L ABG O2 Saturation (94-97) % Chloride 108 H (98-107) mmol/L BUN 35 H (7-17) mg/dL Creatinine 1.11 H (0.52-1.04) mg/dL Glucose 125 H (74-99) mg/dL POC Glucose (mg/dL) 156 H (75-99) mg/dL Ionized Calcium Divina 5.4 H (4.5-5.3) mg/dL AST 80 H (14-36) U/L ALT 102 H (9-52) U/L Total Protein 4.8 L (6.3-8.2) g/dL Albumin 2.6 L (3.5-5.0) g/dL 06/06/17 06/06/17 06/06/17 Range/Units 07:08 07:48 08:06 RBC (3.80-5.40) m/uL Hgb (11.4-16.0) gm/dL Hct (34.0-46.0) % RDW (11.5-15.5) % Plt Count (150-450) k/uL Lymphocytes # (1.0-4.8) k/uL ABG pO2 71 L (83-108) mmHg ABG Total CO2 27 H (19-24) mmol/L ABG O2 Saturation 93.4 L (94-97) % Chloride (98-107) mmol/L BUN (7-17) mg/dL Creatinine (0.52-1.04) mg/dL Glucose (74-99) mg/dL POC Glucose (mg/dL) 174 H 164 H (75-99) mg/dL Ionized Calcium Divina (4.5-5.3) mg/dL AST (14-36) U/L ALT (9-52) U/L Total Protein (6.3-8.2) g/dL Albumin (3.5-5.0) g/dL 06/06/17 06/06/17 Range/Units 09:04 10:11 RBC (3.80-5.40) m/uL Hgb (11.4-16.0) gm/dL Hct (34.0-46.0) % RDW (11.5-15.5) % Plt Count (150-450) k/uL Lymphocytes # (1.0-4.8) k/uL ABG pO2 (83-108) mmHg ABG Total CO2 (19-24) mmol/L ABG O2 Saturation (94-97) % Chloride (98-107) mmol/L BUN (7-17) mg/dL Creatinine (0.52-1.04) mg/dL Glucose (74-99) mg/dL POC Glucose (mg/dL) 115 H 191 H (75-99) mg/dL Ionized Calcium Divina (4.5-5.3) mg/dL AST (14-36) U/L ALT (9-52) U/L Total Protein (6.3-8.2) g/dL Albumin (3.5-5.0) g/dL Microbiology - Last 24 Hours (Table) 06/05/17 10:18 Gram Stain - Preliminary Bronchial Washings - Random Bronchial Washings Culture - Preliminary 06/05/17 10:18 Fungal Culture - Preliminary Bronchial Washings - Random - Imaging and Cardiology Chest x-ray: report reviewed, image reviewed Assessment and Plan (1) Hypertension Current Visit: Yes Status: Chronic Code(s): I10 - ESSENTIAL (PRIMARY) HYPERTENSION SNOMED Code(s): 39356138 (2) Hyperlipidemia Current Visit: Yes Status: Chronic Code(s): E78.5 - HYPERLIPIDEMIA, UNSPECIFIED SNOMED Code(s): 75409726 (3) Diabetes mellitus Current Visit: Yes Status: Chronic Code(s): E11.9 - TYPE 2 DIABETES MELLITUS WITHOUT COMPLICATIONS SNOMED Code(s): 43274020 (4) Previous myocardial infarction older than 8 weeks Current Visit: No Status: Resolved Code(s): I25.2 - OLD MYOCARDIAL INFARCTION SNOMED Code(s): 9902626 (5) History of heart artery stent Current Visit: Yes Status: Chronic Code(s): Z95.5 - PRESENCE OF CORONARY ANGIOPLASTY IMPLANT AND GRAFT SNOMED Code(s): 697923031 (6) Tobacco dependence in remission Current Visit: No Status: Resolved Code(s): F17.201 - NICOTINE DEPENDENCE, UNSPECIFIED, IN REMISSION SNOMED Code(s): 651626257 (7) Family history of premature coronary artery disease Current Visit: Yes Status: Chronic Code(s): Z82.49 - FAMILY HX OF ISCHEM HEART DIS AND OTH DIS OF THE CIRC SYS SNOMED Code(s): 041164075 (8) History of right breast cancer Current Visit: No Status: Resolved Code(s): Z85.3 - PERSONAL HISTORY OF MALIGNANT NEOPLASM OF BREAST SNOMED Code(s): 372636731 (9) Non-STEMI (non-ST elevated myocardial infarction) Current Visit: Yes Status: Acute Code(s): I21.4 - NON-ST ELEVATION (NSTEMI) MYOCARDIAL INFARCTION SNOMED Code(s): 927176278 (10) Morbid obesity with BMI of 40.0-44.9, adult Current Visit: Yes Status: Chronic Code(s): E66.01 - MORBID (SEVERE) OBESITY DUE TO EXCESS CALORIES; Z68.41 - BODY MASS INDEX (BMI) 40.0-44.9, ADULT SNOMED Code(s): 530990476 Plan: 1. Continue aspirin, statin, Plavix, beta doretha. Will increase beta doretha as tolerated. Continue IV Primacor until extubated. Wean levo as tolerated, keep MAP greater than 65. 2. Discontinue IV amiodarone. Transition to oral amiodarone for A. fib prophylaxis. 3. Ventilator management, antibiotics per pulmonology. 4. GI/DVT prophylaxis. 5. Will monitor daily labs and x-rays. 6. Insulin drip/diabetic management per primary care service. 7. Keep Lea for strict accurate I and O's. 8. Will keep left pleural chest tube to continuous wall suction for now. 9. Continue to feedings for maximal nutrition per dietary recommendations. 10. More recommendations to follow. Time with Patient: Greater than 30
[2017-06-06 12:05] LABS: Glucose,Whole Blood 151 mg/dL (75-99)
--- NOTE | 2017-06-06 12:29 | PCN ---
PROCEDURE NOTE PROCEDURE PERFORMED: Placement of the left radial arterial line. PREOPERATIVE DIAGNOSIS: Postoperative respiratory failure, patient is status post CABG. POSTOPERATIVE DIAGNOSIS: Postoperative respiratory failure, patient is status post CABG. ANESTHESIA DEPLOYED: None. PROCEDURE: The left wrist was prepared in a sterile fashion and drapes were applied. The left radial artery was palpated, cannulated easily, and a guidewire was placed. A Cook catheter was inserted over the guidewire, the guidewire was removed. Good blood flow and good waveform were noted. No evidence of any complications. The line was secured using 3.0 silk sutures. MMODL / IJN: [id number] /
[2017-06-06 13:06] LABS: Glucose,Whole Blood 131 mg/dL (75-99)
[2017-06-06 13:55] LABS: Glucose,Whole Blood 119 mg/dL (75-99)
[2017-06-06 14:52] LABS: Glucose,Whole Blood 124 mg/dL (75-99)
[2017-06-06 15:11] LABS: Glucose,Whole Blood 117 mg/dL (75-99)
[2017-06-06 15:57] LABS: Glucose,Whole Blood 116 mg/dL (75-99)
[2017-06-06 17:11] LABS: Glucose,Whole Blood 116 mg/dL (75-99)
[2017-06-06] MEDS: FERROUS SULFATE 325 MG TAB PO SCH (18:08)
[2017-06-06 18:09] LABS: Glucose,Whole Blood 110 mg/dL (75-99)
[2017-06-06 18:53] LABS: Glucose,Whole Blood 127 mg/dL (75-99)
[2017-06-06] MEDS ORDERED: FUROSEMIDE 10 MG/ML 4 ML VIAL IV STA (19:14)
[2017-06-06] MEDS ORDERED: ALBUMIN HUMAN 25% 50 ML in EMPTY BAG 1 BAG IVPB ONE (19:15)
[2017-06-06 20:01] LABS: Glucose,Whole Blood 122 mg/dL (75-99)
[2017-06-06] MEDS: SENNOSIDES-DOCUSATE SODIUM 1 EACH TAB PO SCH (20:21)
[2017-06-06] MEDS: ASCORBIC ACID 500 MG TAB PO SCH (20:23)
[2017-06-06] MEDS: ACETAMINOPHEN TAB 500 MG TAB PO PRN (20:23)
--- NOTE | 2017-06-06 20:47 | PN ---
PROGRESS NOTE DATE OF SERVICE: 06/06/2017 PRESENTING COMPLAINT: Intubated. INTERVAL HISTORY: This patient known coronary artery disease presented with acute NE, then another cardiac arrest and V. fib. Status post 4-vessel coronary bypass, remains on the ventilator with an FiO2 50 and a PEEP of 10. The patient's current drips include Milrinone on 0.12 mcg. Amiodarone drip is being discontinued. Tube feeding is at 45 mL an hour, which is the goal and also on insulin drip. Telemetry remains in sinus rhythm. Chest tube remains in place. Minimal endotracheal secretions. The patient is also on a Diprivan holiday. REVIEW OF SYSTEMS: Patient is intubated. CURRENT MEDICATIONS: Reviewed, as above. EXAMINATION: Temperature 99.1, pulse 82, respirations 20, blood pressure 125/62, pulse ox 94%. The patient did have a temperature of 101.1 yesterday evening. GENERAL APPEARANCE: Lying in bed, intubated. EYES: Pupil equal. Conjunctivae normal. HEENT: External nose and ears normal. Oral cavity: Endotracheal tube in place. NECK: JVD unable to assess. Mass not palpable. RESPIRATORY: Effort normal. LUNGS: Decreased breath sounds. CARDIOVASCULAR: Heart sounds muffled. No edema. ABDOMEN: Soft, nontender. Liver and spleen not palpable. CHEST: Chest tube in place. NEUROLOGICAL: Pupils are equal. Conjunctivae normal. INVESTIGATIONS: White count 5.9, hemoglobin 7.4, platelets 112. Potassium 3.7, BUN 35, creatinine 1. Accu-Cheks are noted. Chest x-ray: Questionable infiltrate on the left side. ASSESSMENT: 1. 4-vessel coronary bypass with [address] Mediastinal chest tube has been discontinued. 2. Coronary artery disease with prior history of stent, presented with acute myocardial infarction on this admission followed by cardiac arrest with ventricular fibrillation. 3. Morbid obesity, BMI greater than 50. 4. Intermittent asthma. 5. Diabetes mellitus type 2, chronically requiring insulin, on insulin drip. 6. Gastroesophageal reflux disease. 7. Hyperlipidemia. 8. Obstructive sleep apnea using a CPAP until recently. 9. Right mastectomy for cancer. 10.Right axillary lesion, being followed as an outpatient. 11.Bilateral nephrolithiasis, asymptomatic. 12.Left adrenal nodule 2.5 cm. 13.Hypertensive heart disease. 14.Acute respiratory failure, ventilator assistance, failing to wean. 15.Acute blood-loss anemia as expected from surgery. 16.Dilutional thrombocytopenia. 17.Hypoalbuminemia as an acute phase reactant. 18.Paroxysmal atrial fibrillation. Patient is back in sinus rhythm. 19.Febrile. Patient may have underlying pneumonia as per bronchial washings and the x- ray and given her fever, will let Pulmonary make a final determination of the same. Antibiotics have been held off currently per Pulmonary Critical Care. Follow. MMODL / IJN: [id number] /
[2017-06-06 21:13] LABS: Glucose,Whole Blood 125 mg/dL (75-99)
[2017-06-06 22:18] LABS: Glucose,Whole Blood 112 mg/dL (75-99)
[2017-06-06 23:08] LABS: Glucose,Whole Blood 132 mg/dL (75-99)
[2017-06-06 23:53] LABS: Glucose,Whole Blood 112 mg/dL (75-99)
[2017-06-07] MEDS: PROPOFOL 1,000 MG in EMPTY BAG 1 BAG IV SCH ×5 (01:02→22:04)
[2017-06-07 01:12] LABS: Glucose,Whole Blood 148 mg/dL (75-99)
[2017-06-07 03:04] LABS: Glucose,Whole Blood 146 mg/dL (75-99)
[2017-06-07 03:04] LABS: Glucose,Whole Blood 157 mg/dL (75-99)
[2017-06-07] MEDS: INSULIN REGULAR 100 UNIT in SODIUM CHLORIDE 0.9% 100 ML IV SCH ×2 (03:04→14:28)
[2017-06-07] MEDS: MILRINONE-D5W PMX 20 MG in DEXTROSE/WATER 1 100ML.BAG IV SCH (03:05)
[2017-06-07] MEDS: IPRATROPIUM-ALBUTEROL 3 ML NEB INHALATION SCH ×6 (03:12→23:44)
[2017-06-07 04:09] LABS: Glucose,Whole Blood 118 mg/dL (75-99)
[2017-06-07 04:31] LABS: Basophils % (A) 0 %; Eosinophils # (A) 0.1 k/uL (0-0.7); Eosinophils % (A) 2 %; HCT 21.4 % (34.0-46.0); Lymphocytes % (A) 19 %; MCH 28.2 pg (25.0-35.0); MCHC 32.2 g/dL (31.0-37.0); MCV 87.6 fL (80.0-100.0); Mean Platelet Volume 10.3; Monocytes # (A) 0.3 k/uL (0-1.0); Monocytes % (A) 5 %; Neutrophils # (A) 3.5 k/uL (1.3-7.7); Neutrophils % (A) 69 %; Platelet Count 107 k/uL (150-450); RBC 2.44 m/uL (3.80-5.40); RDW 15.6 % (11.5-15.5); WBC 5.1 k/uL (3.8-10.6)
[2017-06-07 04:45] LABS: HGB 6.9 gm/dL (11.4-16.0)
[2017-06-07 04:47] LABS: Albumin 2.6 g/dL (3.5-5.0); Calcium 8.8 mg/dL (8.4-10.2); Magnesium 2.4 mg/dL (1.6-2.3); Phosphorus 3.9 mg/dL (2.5-4.5); Total Bilirubin 0.7 mg/dL (0.2-1.3); Total Protein 4.7 g/dL (6.3-8.2)
[2017-06-07 04:51] LABS: Potassium 4.1 mmol/L (3.5-5.1)
[2017-06-07 05:13] LABS: Glucose,Whole Blood 119 mg/dL (75-99)
[2017-06-07 05:44] LABS: INR 1.1 (<1.2); Prothrombin Time 10.6 sec (9.0-12.0)
[2017-06-07 05:56] LABS: Partial Thromboplastin Time 20.7 sec (22.0-30.0)
[2017-06-07 06:07] LABS: Glucose,Whole Blood 127 mg/dL (75-99)
[2017-06-07 06:51] LABS: Glucose,Whole Blood 125 mg/dL (75-99)
[2017-06-07 07:10] LABS: Glucose,Whole Blood 110 mg/dL (75-99)
[2017-06-07 08:00] LABS: ABG Base Excess 2.1 mmol/L; ABG HCO3 26 mmol/L (21-25); ABG Oxygen Saturation 95.7 % (94-97); ABG PCO2 36 mmHg (35-45); ABG PH 7.46 (7.35-7.45); ABG PO2 75 mmHg (83-108); ABG TCO2 27 mmol/L (19-24)
[2017-06-07 08:11] LABS: Glucose,Whole Blood 140 mg/dL (75-99)
--- NOTE | 2017-06-07 08:20 | XR ---
EXAMINATION TYPE: XR chest 1V portable DATE OF EXAM: 06/07/2017 Comparison: 06/06/2017 Clinical History: 66-year-old female post cardiac surgery Findings: ET and NG tubes are satisfactory. Left-sided chest tube. No appreciable pneumothorax. Left PICC tip a t the mid SVC level. Heart remains moderately enlarged. Diffuse interstitial and vascular prominence. Small left pleural effusion, trace right pleural effusion, and left greater than right bibasilar den sities. Impression: 1. Continued CHF with pulmonary vascular congestion. 2. Small left and trace right effusions with adjacent bibasilar atelectasis and/or consolidation, par ticularly at the left base. 3. Overall aeration is stable to minimally worsened.
[2017-06-07] MEDS ORDERED: FUROSEMIDE 10 MG/ML 4 ML VIAL IV STA (08:35)
[2017-06-07] MEDS: HEPARIN SODIUM,PORCINE 5,000 UNIT/ML 1 ML VIAL SQ SCH ×2 (08:41→15:25)
[2017-06-07] MEDS: POTASSIUM BICARBONATE/CIT AC 20 MEQ TABLET.EFF PO SCH (08:41)
[2017-06-07] MEDS: PANTOPRAZOLE 40 MG/10 ML VIAL IVP SCH (08:41)
[2017-06-07] MEDS: CHLORHEXIDINE GLUCONATE 15 ML CUP MUCOUS MEM SCH ×2 (08:41→20:50)
[2017-06-07] MEDS: ASPIRIN 325 MG TAB PO SCH (08:42)
[2017-06-07] MEDS: CLOPIDOGREL 75 MG TAB PO SCH (08:42)
[2017-06-07] MEDS: ATORVASTATIN 40 MG TAB PO SCH (08:42)
[2017-06-07] MEDS: METOPROLOL TARTRATE 25 MG TAB OG-TUBE SCH ×2 (08:42→20:50)
[2017-06-07] MEDS: AMIODARONE 200 MG TAB PO SCH ×2 (08:43→20:50)
[2017-06-07] MEDS: ASCORBIC ACID 500 MG TAB PO SCH ×2 (08:43→20:50)
[2017-06-07] MEDS: FERROUS SULFATE 325 MG TAB PO SCH ×2 (08:43→18:00)
[2017-06-07 09:07] LABS: Glucose,Whole Blood 131 mg/dL (75-99)
[2017-06-07 10:59] LABS: Glucose,Whole Blood 127 mg/dL (75-99)
--- NOTE | 2017-06-07 11:33 | P.PN ---
Subjective Remains intubated post CABG. Temperature 99.2F, pulse rate in the 80s, respirations 26-37, blood pressure 105/60 mmHg Breath sounds reduced bilaterally but equal Heart sounds are soft Abdomen is soft Impression Severe coronary artery disease VF arrest Paroxysmal atrial fibrillation Status post coronary artery bypass grafting Postoperative respiratory failure still intubated Suggest Continue oral amiodarone and after a week reduce dose to 200 mg once daily Continue aspirin continue statins Continue Plavix Continue low-dose beta blockers Objective - Vital Signs Vital signs: Vital Signs Temp 99.2 F 06/07/17 09:52 Pulse 80 06/07/17 11:17 Resp 37 H 06/07/17 10:00 BP 105/60 06/07/17 10:00 Pulse Ox 100 06/07/17 10:00 Intake & Output 06/06/17 06/07/17 06/07/17 18:59 06:59 18:59 Intake Total 3336.554 2116.192 516.200 Output Total 905 1944 275 Balance 1059.633 -50.808 241.200 Weight 129.3 kg 129.3 kg Intake: IV 654.9 548.5 72 0.9 for pressure 69 78 12 Albumin Human 25% 50 ml 100 In Empty Bag 1 bag @ 100 mls/hr IVPB ONCE ONE Rx#: [id number] Amiodarone 83.5 Lactated Ringers 1,000 ml 360 325 60 @ 20 mls/hr IV .Q24H REPLACED BY [facility] Rx#:[id number] Levofloxacin 500Mg-D5w 100 Pmx 500 mg In Dextrose/ Water 1 100ml.bag @ 100 mls/hr IVPB Q24H REPLACED BY [facility] Rx#: [id number] primacor 42.4 45.5 Intake, IV Titration 409.733 749.692 57.200 Amount Amiodarone 450 mg In 209.421 Dextrose 5% in Water 250 ml @ 1 MG/MIN 34.53 mls/ hr IV .Q7H31M PRN Rx#: [id number] Insulin Regular 100 unit 181.658 110.617 44.467 In Sodium Chloride 0.9% 100 ml @ Per Protocol IV .Q0M [facility] Rx#:[id number] Milrinone-D5w Pmx 20 mg 2.504 In Dextrose/Water 1 100ml .bag @ Per Protocol IV . Q0M [facility] Rx#:[id number] Propofol 1,000 mg In 228.075 427.150 12.733 Empty Bag 1 bag @ Titrate IV .Q0M [facility] Rx#: [id number] Oral 222 Tube Feeding 540 395 165 Blood Product 0 Rc As-1 Unit 0 [id number] Other 360 200 Output: Chest Tube Drainage 280 60 50 left pleural 280 60 50 Drainage 220 480 Right Lower Medial Calf 220 480 Urine 405 1404 225 Other: Voiding Method Indwelling Catheter Indwelling Catheter Indwelling Catheter # Voids 2 # Bowel Movements 0 ABP, PAP, CO, CI - Last Documented Arterial Blood Pressure 112/59 Pulmonary Artery Pressure 33/21 Cardiac Output 5 Cardiac Index 2.4 - Labs CBC & Chem 7: 06/07/17 04:05 06/07/17 04:05 Labs: Abnormal Lab Results - Last 24 Hours (Table) 06/02/17 06/06/17 06/06/17 Range/Units 11:09 12:03 13:04 RBC (3.80-5.40) m/uL Hgb (11.4-16.0) gm/dL Hct (34.0-46.0) % RDW (11.5-15.5) % Plt Count (150-450) k/uL APTT (22.0-30.0) sec ABG pH (7.35-7.45) ABG pO2 (83-108) mmHg ABG HCO3 (21-25) mmol/L ABG Total CO2 (19-24) mmol/L BUN (7-17) mg/dL Creatinine (0.52-1.04) mg/dL Glucose (74-99) mg/dL POC Glucose (mg/dL) 151 H 131 H (75-99) mg/dL Magnesium (1.6-2.3) mg/dL AST (14-36) U/L ALT (9-52) U/L Total Protein (6.3-8.2) g/dL Albumin (3.5-5.0) g/dL Crossmatch See Detail 06/06/17 06/06/17 06/06/17 Range/Units 13:53 14:50 15:10 RBC (3.80-5.40) m/uL Hgb (11.4-16.0) gm/dL Hct (34.0-46.0) % RDW (11.5-15.5) % Plt Count (150-450) k/uL APTT (22.0-30.0) sec ABG pH (7.35-7.45) ABG pO2 (83-108) mmHg ABG HCO3 (21-25) mmol/L ABG Total CO2 (19-24) mmol/L BUN (7-17) mg/dL Creatinine (0.52-1.04) mg/dL Glucose (74-99) mg/dL POC Glucose (mg/dL) 119 H 124 H 117 H (75-99) mg/dL Magnesium (1.6-2.3) mg/dL AST (14-36) U/L ALT (9-52) U/L Total Protein (6.3-8.2) g/dL Albumin (3.5-5.0) g/dL Crossmatch 06/06/17 06/06/17 06/06/17 Range/Units 15:55 17:10 18:07 RBC (3.80-5.40) m/uL Hgb (11.4-16.0) gm/dL Hct (34.0-46.0) % RDW (11.5-15.5) % Plt Count (150-450) k/uL APTT (22.0-30.0) sec ABG pH (7.35-7.45) ABG pO2 (83-108) mmHg ABG HCO3 (21-25) mmol/L ABG Total CO2 (19-24) mmol/L BUN (7-17) mg/dL Creatinine (0.52-1.04) mg/dL Glucose (74-99) mg/dL POC Glucose (mg/dL) 116 H 116 H 110 H (75-99) mg/dL Magnesium (1.6-2.3) mg/dL AST (14-36) U/L ALT (9-52) U/L Total Protein (6.3-8.2) g/dL Albumin (3.5-5.0) g/dL Crossmatch 06/06/17 06/06/17 06/06/17 Range/Units 18:52 20:00 21:10 RBC (3.80-5.40) m/uL Hgb (11.4-16.0) gm/dL Hct (34.0-46.0) % RDW (11.5-15.5) % Plt Count (150-450) k/uL APTT (22.0-30.0) sec ABG pH (7.35-7.45) ABG pO2 (83-108) mmHg ABG HCO3 (21-25) mmol/L ABG Total CO2 (19-24) mmol/L BUN (7-17) mg/dL Creatinine (0.52-1.04) mg/dL Glucose (74-99) mg/dL POC Glucose (mg/dL) 127 H 122 H 125 H (75-99) mg/dL Magnesium (1.6-2.3) mg/dL AST (14-36) U/L ALT (9-52) U/L Total Protein (6.3-8.2) g/dL Albumin (3.5-5.0) g/dL Crossmatch 06/06/17 06/06/17 06/06/17 Range/Units 22:12 23:06 23:50 RBC (3.80-5.40) m/uL Hgb (11.4-16.0) gm/dL Hct (34.0-46.0) % RDW (11.5-15.5) % Plt Count (150-450) k/uL APTT (22.0-30.0) sec ABG pH (7.35-7.45) ABG pO2 (83-108) mmHg ABG HCO3 (21-25) mmol/L ABG Total CO2 (19-24) mmol/L BUN (7-17) mg/dL Creatinine (0.52-1.04) mg/dL Glucose (74-99) mg/dL POC Glucose (mg/dL) 112 H 132 H 112 H (75-99) mg/dL Magnesium (1.6-2.3) mg/dL AST (14-36) U/L ALT (9-52) U/L Total Protein (6.3-8.2) g/dL Albumin (3.5-5.0) g/dL Crossmatch 06/07/17 06/07/17 06/07/17 Range/Units 00:59 02:02 03:03 RBC (3.80-5.40) m/uL Hgb (11.4-16.0) gm/dL Hct (34.0-46.0) % RDW (11.5-15.5) % Plt Count (150-450) k/uL APTT (22.0-30.0) sec ABG pH (7.35-7.45) ABG pO2 (83-108) mmHg ABG HCO3 (21-25) mmol/L ABG Total CO2 (19-24) mmol/L BUN (7-17) mg/dL Creatinine (0.52-1.04) mg/dL Glucose (74-99) mg/dL POC Glucose (mg/dL) 148 H 157 H 146 H (75-99) mg/dL Magnesium (1.6-2.3) mg/dL AST (14-36) U/L ALT (9-52) U/L Total Protein (6.3-8.2) g/dL Albumin (3.5-5.0) g/dL Crossmatch 06/07/17 06/07/17 06/07/17 Range/Units 04:05 04:05 04:05 RBC 2.44 L (3.80-5.40) m/uL Hgb 6.9 L* (11.4-16.0) gm/dL Hct 21.4 L (34.0-46.0) % RDW 15.6 H (11.5-15.5) % Plt Count 107 L (150-450) k/uL APTT 20.7 L (22.0-30.0) sec ABG pH (7.35-7.45) ABG pO2 (83-108) mmHg ABG HCO3 (21-25) mmol/L ABG Total CO2 (19-24) mmol/L BUN 37 H (7-17) mg/dL Creatinine 1.10 H (0.52-1.04) mg/dL Glucose 110 H (74-99) mg/dL POC Glucose (mg/dL) (75-99) mg/dL Magnesium 2.4 H (1.6-2.3) mg/dL AST 75 H (14-36) U/L ALT 110 H (9-52) U/L Total Protein 4.7 L (6.3-8.2) g/dL Albumin 2.6 L (3.5-5.0) g/dL Crossmatch 06/07/17 06/07/17 06/07/17 Range/Units 04:07 05:12 06:05 RBC (3.80-5.40) m/uL Hgb (11.4-16.0) gm/dL Hct (34.0-46.0) % RDW (11.5-15.5) % Plt Count (150-450) k/uL APTT (22.0-30.0) sec ABG pH (7.35-7.45) ABG pO2 (83-108) mmHg ABG HCO3 (21-25) mmol/L ABG Total CO2 (19-24) mmol/L BUN (7-17) mg/dL Creatinine (0.52-1.04) mg/dL Glucose (74-99) mg/dL POC Glucose (mg/dL) 118 H 119 H 127 H (75-99) mg/dL Magnesium (1.6-2.3) mg/dL AST (14-36) U/L ALT (9-52) U/L Total Protein (6.3-8.2) g/dL Albumin (3.5-5.0) g/dL Crossmatch 06/07/17 06/07/17 06/07/17 Range/Units 06:05 06:49 06:57 RBC (3.80-5.40) m/uL Hgb (11.4-16.0) gm/dL Hct (34.0-46.0) % RDW (11.5-15.5) % Plt Count (150-450) k/uL APTT (22.0-30.0) sec ABG pH (7.35-7.45) ABG pO2 (83-108) mmHg ABG HCO3 (21-25) mmol/L ABG Total CO2 (19-24) mmol/L BUN (7-17) mg/dL Creatinine (0.52-1.04) mg/dL Glucose (74-99) mg/dL POC Glucose (mg/dL) 125 H 110 H (75-99) mg/dL Magnesium (1.6-2.3) mg/dL AST (14-36) U/L ALT (9-52) U/L Total Protein (6.3-8.2) g/dL Albumin (3.5-5.0) g/dL Crossmatch See Detail 06/07/17 06/07/17 06/07/17 Range/Units 07:58 08:09 09:05 RBC (3.80-5.40) m/uL Hgb (11.4-16.0) gm/dL Hct (34.0-46.0) % RDW (11.5-15.5) % Plt Count (150-450) k/uL APTT (22.0-30.0) sec ABG pH 7.46 H (7.35-7.45) ABG pO2 75 L (83-108) mmHg ABG HCO3 26 H (21-25) mmol/L ABG Total CO2 27 H (19-24) mmol/L BUN (7-17) mg/dL Creatinine (0.52-1.04) mg/dL Glucose (74-99) mg/dL POC Glucose (mg/dL) 140 H 131 H (75-99) mg/dL Magnesium (1.6-2.3) mg/dL AST (14-36) U/L ALT (9-52) U/L Total Protein (6.3-8.2) g/dL Albumin (3.5-5.0) g/dL Crossmatch 06/07/17 Range/Units 10:57 RBC (3.80-5.40) m/uL Hgb (11.4-16.0) gm/dL Hct (34.0-46.0) % RDW (11.5-15.5) % Plt Count (150-450) k/uL APTT (22.0-30.0) sec ABG pH (7.35-7.45) ABG pO2 (83-108) mmHg ABG HCO3 (21-25) mmol/L ABG Total CO2 (19-24) mmol/L BUN (7-17) mg/dL Creatinine (0.52-1.04) mg/dL Glucose (74-99) mg/dL POC Glucose (mg/dL) 127 H (75-99) mg/dL Magnesium (1.6-2.3) mg/dL AST (14-36) U/L ALT (9-52) U/L Total Protein (6.3-8.2) g/dL Albumin (3.5-5.0) g/dL Crossmatch Microbiology - Last 24 Hours (Table) 06/05/17 10:18 Gram Stain - Final Bronchial Washings - Random Bronchial Washings Culture - Final Enterobacter cloacae
[2017-06-07] MEDS ORDERED: LEVOFLOXACIN 250MG-D5W PMX 250 MG in DEXTROSE/WATER 1 50ML.BAG IVPB SCH (12:00)
[2017-06-07 12:56] LABS: Glucose,Whole Blood 114 mg/dL (75-99)
--- NOTE | 2017-06-07 13:15 | P.PN ---
Subjective Progress Note Date: 06/06/17 Principal diagnosis: Acute cardiac arrest, ventricular fibrillation, status post CPR. On today's evaluation of 05/30/2017 the patient is being seen in follow-up. The patient is resting comfortably in bed. Noted the patient was seen yesterday for a preoperative cardiac clearance. I had a lengthy discussion with her. The patient has morbid obesity, COPD and addition to severe obstructive sleep apnea. The patient with kidney and increased risk of developing postoperative pulmonary complications should thoracotomy and bypass surgery is done. Nevertheless, weighing the risks and benefits, the patient should be able to undertake these risks. For now the patient IV heparin. Her troponins came back positive at 0.038, 0.035 and 0.0 26. The patient's family chest pain for now. CV surgery is on the case. The patient is off Plavix. The patient is being considered for coronary artery bypass surgery next week. She is hemodynamically stable at this point. No cough sputum production or chest that is so wheezing. She tells me that her BiPAP machine was taken away from her as the patient did not demonstrate adequate data as she was hospitalized for pneumonia. Her pneumonia essentially cleared showed no parenchymal lung abnormalities. There is no mediastinal lymphadenopathy. There was a large right axillary lesion measuring 6.5 x 4.8 cm in size ejection of a cyst with overlying scar. Her was a small right-sided pleural effusion with some mild atelectatic changes and mild diffuse bronchial wall thickening without consolidation, and there is a l small hiatal hernia. A 2.4 cm left of the nodule was also seen which is a adenoma and the patient has compression deformity of the level of T11. On 05/31/2017 the patient is free of any chest pain. The patient remains on IV heparin. She'll be kept in the hospital awaiting her surgery. The patient had a blood gases on room air and she demonstrated pH of 7.46 with a pCO2 of 40 and pO2 of 68 and this was done on room air. The cyst in her right axilla was noted. Apparently this was drained on multiple occasions by general surgery and she tells that there is no evidence of any malignancy found on previous drainage procedures. I discussed the case with interventional radiology. We found that there was no need to repeated drainages long as the patient has been drained in the past and the structures of the cystic rather than malignant or solids. On 06/01/2017, the patient is stable and the patient has no new complaints. Simply of any chest pain. She is ambulating. 95% pulse ox on 3 selection by nasal cannula. She is afebrile. No cardiac arrhythmias. No other complaints otherwise for now. Tentative plan is to proceed with surgery next week. On 06/02/2017, the patient is being seen him follow-up. Currently she is interested intensive care unit intubated on a mechanical ventilator. The events that occurred overnight was noted. The patient acutely went into V. fib at around 10:00 and the patient received CPR and defibrillation. The exact downtime was less than 5 minutes. The patient received a total of 2 defibrillation 3 rounds of epinephrine. There was return of spontaneous circulation. The patient was intubated and brought to the intensive care unit. This morning she is sedated With Diprivan and currently Diprivan is running at 50 mics. I was told that the patient was able to follow commands following her cardiac arrest and neurologically seems to be intact despite his underlying cardiac arrest. The patient is on no pressors. Currently she is on assist control mode of ventilation at the rate of 16, tidal volume of 450, FiO2 of 60% and a PEEP of 5. The patient's pH is at 7.39 with a pCO2 of 41 and pO2 of 117. Chest x-ray shows adequate positioning of the ET tube. The patient also has a orogastric tube in place. She is nothing by mouth for now. She has adequate pulses in all 4 extremities. She is calm and comfortable. She is producing urine output in the order of 100 mL an hour. No further cardiac arrhythmias have been noted. The patient was given amiodarone bolus 10 mg and currently she is on a maintenance amiodarone of 0.5 mg/m. Rest of the blood pressure medications are on hold. Beta doretha was given this morning and the patient received Lopressor 25 mg orally. The case was discussed with cardiothoracic surgery. It seems that the patient will need emergent coronary artery bypass surgery and the patient will be taken to the operating room today. On 06/03/2017 I'm seeing this patient for a follow-up. The patient underwent four-vessel bypass surgery. This was done in the afternoon yesterday and the patient arrived back to the intensive care unit around 11 PM. Preoperatively, there has been difficulties with oxygenation and metabolic acidosis. Overall the patient received a total of 6 bicarb amps and the patient arrived to the intensive care unit quite stable on 7 mics of norepinephrine infusion and 1 g of epinephrine infusion.. She was producing adequate amount of urine output and she was hemodynamically stable. Necessary vent changes were done overnight and this morning the patient is on a assist-control mode at the rate of 18, tidal volume of 550, FiO2 has been weaned down to 60% and the current PEEP is at 10. Most recent blood gases showed a pH of 7.46 with a pCO2 of 38 and pO2 of 84 and this was done and FiO2 of 80%. Chest x-ray shows adequate expansion of both lungs. Lung volumes are small. ET tube is in a good location. The patient has 2 chest tubes 1 mediastinal and 1 pleural. No evidence of any pneumothorax. NG tube is in a good location. This morning, the patient is sedated with Diprivan and she is calm and comfortable. We have noted some increased activity in the right upper extremity compared to the left. Note that she is a post cardiac arrest. Mental status was checked preoperatively and she was following some simple commands. In any rate, she is still on Diprivan and Diprivan will be continued as long as the patient is not ready to wean yet. This morning she is on 2 mics of norepinephrine infusion. Cardiac index is at 2.4. Her PA pressures around 35/26, and the chest tube output has been 170 mL from the left pleural and 50s on the mediastinal. No evidence of any air leak. We will lobe and this morning is at 8.7. Correlation profile shows an INR of 1.3 with a PTT of 68. IV heparin was discontinued. Patient was evaluated today on 06/04/2017, remains on mechanical ventilation, her ventilator settings are FiO2 of 65%, tidal volume of 500 assist control rate of 18 and PEEP of 8. ABG showed a pO2 of 62 pCO2 of 34 pH of 7.48. Hence the FiO2 was increased from 60% to 65% and PEEP was increased to 8 as above. Rest of the labs were reviewed the seem to be relatively unremarkable. Chest x- ray showed what seems to be a left lower lobe consolidation. And atelectasis. Hemoglobin is 7.7. Her last echocardiogram showed good LV function. Patient remains on inotropes, but minimal doses. Remains on amiodarone, and she is also on insulin. Chest x-ray showed minimal pulmonary vascular congestion, and atelectasis mostly at the left base. Patient was reevaluated today on 06/05/2017, presently on 60% FiO2, assist control rate was 18, volume of 500, and PEEP was increased to 10. ABG showed a pO2 of 73 pCO2 of 33 pH of 7.48. All labs were reviewed, renal functioning is basically about the same in the last 3 days a 1.20 creatinine, and BUN is 28. Chest x-ray was also reviewed and there is evidence of bibasilar atelectasis, mostly left lower lobe collapse was noted, and the patient underwent bronchoscopy after visualizing her chest x-ray today. PEEP was increased to 10. And the patient was started on empiric antibiotics in the form of Levaquin. Remains on 1 mcg/m of norepinephrine, patient is fully sedated on propofol, however we plan to place the patient on a sedation holiday, and hopefully assess for weaning parameters today. If possible. Patient is clearly not ready for weaning and extubation at this point. Cardiac-munguia she has intermittent episodes of atrial fibrillation, had 1 episode early this morning, presently in normal sinus rhythm. Patient was reevaluated on 06/06/2017, remains on mechanical ventilation, I was able to cut down her FiO2 to 50%, but she remains on a PEEP of 10. Asked x-ray continues to show bilateral opacities at the bases, with more atelectasis is noted in the left lower lobe. All her labs were reviewed, patient was taken off propofol, however the patient remained extremely lethargic, and we did not get to the point where the patient could follow any instructions. Could not even consider a spontaneous breathing trial. At the same time the patient remains on relatively high PEEP, and her ABG remains a very marginal with pO2 in the low 70s. Objective - Vital Signs Vital signs: Vital Signs Temp 99.2 F 06/07/17 09:52 Pulse 84 06/07/17 11:34 Resp 37 H 06/07/17 10:00 BP 105/60 06/07/17 10:00 Pulse Ox 100 06/07/17 10:00 Intake & Output 06/06/17 06/07/17 06/07/17 18:59 06:59 18:59 Intake Total 8753.779 9707.192 516.200 Output Total 905 1944 275 Balance 1059.633 -50.808 241.200 Weight 129.3 kg 129.3 kg Intake: IV 654.9 548.5 72 0.9 for pressure 69 78 12 Albumin Human 25% 50 ml 100 In Empty Bag 1 bag @ 100 mls/hr IVPB ONCE ONE Rx#: [id number] Amiodarone 83.5 Lactated Ringers 1,000 ml 360 325 60 @ 20 mls/hr IV .Q24H [facility] Rx#:[id number] Levofloxacin 500Mg-D5w 100 Pmx 500 mg In Dextrose/ Water 1 100ml.bag @ 100 mls/hr IVPB Q24H [facility] Rx#: [id number] primacor 42.4 45.5 Intake, IV Titration 409.733 749.692 57.200 Amount Amiodarone 450 mg In 209.421 Dextrose 5% in Water 250 ml @ 1 MG/MIN 34.53 mls/ hr IV .Q7H31M PRN Rx#: [id number] Insulin Regular 100 unit 181.658 110.617 44.467 In Sodium Chloride 0.9% 100 ml @ Per Protocol IV .Q0M [facility] Rx#:[id number] Milrinone-D5w Pmx 20 mg 2.504 In Dextrose/Water 1 100ml .bag @ Per Protocol IV . Q0M [facility] Rx#:[id number] Propofol 1,000 mg In 228.075 427.150 12.733 Empty Bag 1 bag @ Titrate IV .Q0M [facility] Rx#: [id number] Oral 222 Tube Feeding 540 395 165 Blood Product 0 Rc As-1 Unit 0 [id number] Other 360 200 Output: Chest Tube Drainage 280 60 50 left pleural 280 60 50 Drainage 220 480 Right Lower Medial Calf 220 480 Urine 405 1404 225 Other: Voiding Method Indwelling Catheter Indwelling Catheter Indwelling Catheter # Voids 2 # Bowel Movements 0 ABP, PAP, CO, CI - Last Documented Arterial Blood Pressure 112/59 Pulmonary Artery Pressure 33/21 Cardiac Output 5 Cardiac Index 2.4 - Exam - Exam Physical examination revealed a 66-year-old female, on mechanical ventilation, sedated, on propofol. - Constitutional General appearance: Does not seem to be in any form of distress., On mechanical ventilation. - EENT Eyes: PERRLA, EOMI. - Neck Details: Neck is supple, no neck masses, no thyromegaly, lives in the neck were noted endotracheal tube is intact. - Respiratory Details: Lung sounds with coarse rhonchi throughout, diminished bilateral bases. Respirations are symmetrical and unlabored with mechanical ventilator support. Mediastinal chest tube was removed yesterday. left pleural chest tubes without air leak. Chest tubes remained to low continuous wall suction -20 cm H2O. 500 mL of chest tube drainage in the last 24 hours. - Cardiovascular Details: Regular rhythm and rate. S1 and S2 present, negative for S3, gallop or murmur. Sternum is stable. Bedside telemetry showing normal sinus rhythm with bundle branch block and occasional PVC, heart rate 96. Heart hugger's in place. Atrial and ventricular epicardial pacemaker wires intact and hooked up to a backup bedside pacemaker generator. - Gastrointestinal Gastrointestinal Comment(s): Soft nontender no megaly no rebound no guarding, positive bowel sounds. - Genitourinary Genitourinary Comment(s): Lea catheter for accurate I&O. - Integumentary Integumentary Comment(s): Skin is warm and dry. No cyanosis or clubbing. - Neurologic Neurologic Comment(s): Patient remains sedated with Diprivan drip at this time cannot be assessed. - Musculoskeletal Musculoskeletal: Cannot be assessed. - Labs CBC & Chem 7: 06/07/17 04:05 06/07/17 04:05 Labs: Abnormal Lab Results - Last 24 Hours (Table) 06/02/17 06/06/17 06/06/17 Range/Units 11:09 13:53 14:50 RBC (3.80-5.40) m/uL Hgb (11.4-16.0) gm/dL Hct (34.0-46.0) % RDW (11.5-15.5) % Plt Count (150-450) k/uL APTT (22.0-30.0) sec ABG pH (7.35-7.45) ABG pO2 (83-108) mmHg ABG HCO3 (21-25) mmol/L ABG Total CO2 (19-24) mmol/L BUN (7-17) mg/dL Creatinine (0.52-1.04) mg/dL Glucose (74-99) mg/dL POC Glucose (mg/dL) 119 H 124 H (75-99) mg/dL Magnesium (1.6-2.3) mg/dL AST (14-36) U/L ALT (9-52) U/L Total Protein (6.3-8.2) g/dL Albumin (3.5-5.0) g/dL Crossmatch See Detail 06/06/17 06/06/17 06/06/17 Range/Units 15:10 15:55 17:10 RBC (3.80-5.40) m/uL Hgb (11.4-16.0) gm/dL Hct (34.0-46.0) % RDW (11.5-15.5) % Plt Count (150-450) k/uL APTT (22.0-30.0) sec ABG pH (7.35-7.45) ABG pO2 (83-108) mmHg ABG HCO3 (21-25) mmol/L ABG Total CO2 (19-24) mmol/L BUN (7-17) mg/dL Creatinine (0.52-1.04) mg/dL Glucose (74-99) mg/dL POC Glucose (mg/dL) 117 H 116 H 116 H (75-99) mg/dL Magnesium (1.6-2.3) mg/dL AST (14-36) U/L ALT (9-52) U/L Total Protein (6.3-8.2) g/dL Albumin (3.5-5.0) g/dL Crossmatch 06/06/17 06/06/17 06/06/17 Range/Units 18:07 18:52 20:00 RBC (3.80-5.40) m/uL Hgb (11.4-16.0) gm/dL Hct (34.0-46.0) % RDW (11.5-15.5) % Plt Count (150-450) k/uL APTT (22.0-30.0) sec ABG pH (7.35-7.45) ABG pO2 (83-108) mmHg ABG HCO3 (21-25) mmol/L ABG Total CO2 (19-24) mmol/L BUN (7-17) mg/dL Creatinine (0.52-1.04) mg/dL Glucose (74-99) mg/dL POC Glucose (mg/dL) 110 H 127 H 122 H (75-99) mg/dL Magnesium (1.6-2.3) mg/dL AST (14-36) U/L ALT (9-52) U/L Total Protein (6.3-8.2) g/dL Albumin (3.5-5.0) g/dL Crossmatch 06/06/17 06/06/17 06/06/17 Range/Units 21:10 22:12 23:06 RBC (3.80-5.40) m/uL Hgb (11.4-16.0) gm/dL Hct (34.0-46.0) % RDW (11.5-15.5) % Plt Count (150-450) k/uL APTT (22.0-30.0) sec ABG pH (7.35-7.45) ABG pO2 (83-108) mmHg ABG HCO3 (21-25) mmol/L ABG Total CO2 (19-24) mmol/L BUN (7-17) mg/dL Creatinine (0.52-1.04) mg/dL Glucose (74-99) mg/dL POC Glucose (mg/dL) 125 H 112 H 132 H (75-99) mg/dL Magnesium (1.6-2.3) mg/dL AST (14-36) U/L ALT (9-52) U/L Total Protein (6.3-8.2) g/dL Albumin (3.5-5.0) g/dL Crossmatch 06/06/17 06/07/17 06/07/17 Range/Units 23:50 00:59 02:02 RBC (3.80-5.40) m/uL Hgb (11.4-16.0) gm/dL Hct (34.0-46.0) % RDW (11.5-15.5) % Plt Count (150-450) k/uL APTT (22.0-30.0) sec ABG pH (7.35-7.45) ABG pO2 (83-108) mmHg ABG HCO3 (21-25) mmol/L ABG Total CO2 (19-24) mmol/L BUN (7-17) mg/dL Creatinine (0.52-1.04) mg/dL Glucose (74-99) mg/dL POC Glucose (mg/dL) 112 H 148 H 157 H (75-99) mg/dL Magnesium (1.6-2.3) mg/dL AST (14-36) U/L ALT (9-52) U/L Total Protein (6.3-8.2) g/dL Albumin (3.5-5.0) g/dL Crossmatch 06/07/17 06/07/17 06/07/17 Range/Units 03:03 04:05 04:05 RBC 2.44 L (3.80-5.40) m/uL Hgb 6.9 L* (11.4-16.0) gm/dL Hct 21.4 L (34.0-46.0) % RDW 15.6 H (11.5-15.5) % Plt Count 107 L (150-450) k/uL APTT (22.0-30.0) sec ABG pH (7.35-7.45) ABG pO2 (83-108) mmHg ABG HCO3 (21-25) mmol/L ABG Total CO2 (19-24) mmol/L BUN 37 H (7-17) mg/dL Creatinine 1.10 H (0.52-1.04) mg/dL Glucose 110 H (74-99) mg/dL POC Glucose (mg/dL) 146 H (75-99) mg/dL Magnesium 2.4 H (1.6-2.3) mg/dL AST 75 H (14-36) U/L ALT 110 H (9-52) U/L Total Protein 4.7 L (6.3-8.2) g/dL Albumin 2.6 L (3.5-5.0) g/dL Crossmatch 06/07/17 06/07/17 06/07/17 Range/Units 04:05 04:07 05:12 RBC (3.80-5.40) m/uL Hgb (11.4-16.0) gm/dL Hct (34.0-46.0) % RDW (11.5-15.5) % Plt Count (150-450) k/uL APTT 20.7 L (22.0-30.0) sec ABG pH (7.35-7.45) ABG pO2 (83-108) mmHg ABG HCO3 (21-25) mmol/L ABG Total CO2 (19-24) mmol/L BUN (7-17) mg/dL Creatinine (0.52-1.04) mg/dL Glucose (74-99) mg/dL POC Glucose (mg/dL) 118 H 119 H (75-99) mg/dL Magnesium (1.6-2.3) mg/dL AST (14-36) U/L ALT (9-52) U/L Total Protein (6.3-8.2) g/dL Albumin (3.5-5.0) g/dL Crossmatch 06/07/17 06/07/17 06/07/17 Range/Units 06:05 06:05 06:49 RBC (3.80-5.40) m/uL Hgb (11.4-16.0) gm/dL Hct (34.0-46.0) % RDW (11.5-15.5) % Plt Count (150-450) k/uL APTT (22.0-30.0) sec ABG pH (7.35-7.45) ABG pO2 (83-108) mmHg ABG HCO3 (21-25) mmol/L ABG Total CO2 (19-24) mmol/L BUN (7-17) mg/dL Creatinine (0.52-1.04) mg/dL Glucose (74-99) mg/dL POC Glucose (mg/dL) 127 H 125 H (75-99) mg/dL Magnesium (1.6-2.3) mg/dL AST (14-36) U/L ALT (9-52) U/L Total Protein (6.3-8.2) g/dL Albumin (3.5-5.0) g/dL Crossmatch See Detail 06/07/17 06/07/17 06/07/17 Range/Units 06:57 07:58 08:09 RBC (3.80-5.40) m/uL Hgb (11.4-16.0) gm/dL Hct (34.0-46.0) % RDW (11.5-15.5) % Plt Count (150-450) k/uL APTT (22.0-30.0) sec ABG pH 7.46 H (7.35-7.45) ABG pO2 75 L (83-108) mmHg ABG HCO3 26 H (21-25) mmol/L ABG Total CO2 27 H (19-24) mmol/L BUN (7-17) mg/dL Creatinine (0.52-1.04) mg/dL Glucose (74-99) mg/dL POC Glucose (mg/dL) 110 H 140 H (75-99) mg/dL Magnesium (1.6-2.3) mg/dL AST (14-36) U/L ALT (9-52) U/L Total Protein (6.3-8.2) g/dL Albumin (3.5-5.0) g/dL Crossmatch 06/07/17 06/07/17 06/07/17 Range/Units 09:05 10:57 12:52 RBC (3.80-5.40) m/uL Hgb (11.4-16.0) gm/dL Hct (34.0-46.0) % RDW (11.5-15.5) % Plt Count (150-450) k/uL APTT (22.0-30.0) sec ABG pH (7.35-7.45) ABG pO2 (83-108) mmHg ABG HCO3 (21-25) mmol/L ABG Total CO2 (19-24) mmol/L BUN (7-17) mg/dL Creatinine (0.52-1.04) mg/dL Glucose (74-99) mg/dL POC Glucose (mg/dL) 131 H 127 H 114 H (75-99) mg/dL Magnesium (1.6-2.3) mg/dL AST (14-36) U/L ALT (9-52) U/L Total Protein (6.3-8.2) g/dL Albumin (3.5-5.0) g/dL Crossmatch Microbiology - Last 24 Hours (Table) 06/05/17 10:18 Gram Stain - Final Bronchial Washings - Random Bronchial Washings Culture - Final Enterobacter cloacae Assessment and Plan Assessment: 1 acute hypoxic respiratory failure requiring intubation secondary to acute cardiac arrest, acute v fibrillation, resuscitated successfully, defibrillated and the patient is currently intubated on a mechanical ventilator. The acute episode of V. fib was probably ischemic in nature. The patient did not have any significant elevation of troponin the EKG today is sinus with a LBBB pattern 2 Symptomatic multivessel coronary artery disease involving the proximal and mid LAD, RCA and diffuse disease in the circumflex coronary artery, post IL, post four-vessel bypass surgery and the patient is postop day #2. Currently on 1 mics of levo fed. Adequate cardiac index and output. Hemodynamically stable. Not ready to wean yet and we are waiting further improvement in oxygenation prior to proceeding with weaning. Currently she is on 10 of PEEP with an FiO2 of 60%. Blood gases was noted. 3 . COPD, with a baseline FEV1 of 76% of predicted on outpatient basis. 4. Obstructive sleep apnea, with baseline AHI of 80, patient was prescribed BiPAP therapy at pressures 21/17 cm of water. 5. Obesity, 6. Coronary artery disease, with previous stenting 7. Recent hospitalization for right lung pneumonia at [facility] in March 2017. Patient had a thoracentesis for pleural effusion during that admission 8. Hyperlipidemia and hypertension hypertension 9. History of right breast cancer with lumpectomy/lymph node removal and radiation 10. GERD/reflux 11 a large cystic structure within the right axilla. Could be a recurrent breast cancer although this is a remote possibility. This has been addressed by many general surgeons out of town, and by Dr. trotter at one point. 12 diabetes mellitus, currently on insulin drip for blood sugar control 13 anemia, hemoglobin is at 7.8 14 strongly suspect pneumonia, possibly aspiration in nature considering her initial presentation of cardiac arrest requiring CPR as noted above. However the possibility of hospital-acquired pneumonia is not entirely ruled out. Plan: Continue present supportive care measures, continue to titrate FiO2 down, keep PEEP at 10 for now, await final cultures from the bronchoalveolar lavage, in the meantime we will continue to follow closely. And was daily weaning trials and the patient gets to the point where she is arousable enough, and able to follow instructions, and then proceed with spontaneous breathing trials if that happens. Prognosis remains guarded at this point. Critical care time is 32 minutes. not Including time on procedures Time with Patient: Greater than 30
--- NOTE | 2017-06-07 13:22 | P.PN ---
Subjective Progress Note Date: 06/07/17 Principal diagnosis: Acute cardiac arrest, ventricular fibrillation, status post CPR. On today's evaluation of 05/30/2017 the patient is being seen in follow-up. The patient is resting comfortably in bed. Noted the patient was seen yesterday for a preoperative cardiac clearance. I had a lengthy discussion with her. The patient has morbid obesity, COPD and addition to severe obstructive sleep apnea. The patient with kidney and increased risk of developing postoperative pulmonary complications should thoracotomy and bypass surgery is done. Nevertheless, weighing the risks and benefits, the patient should be able to undertake these risks. For now the patient IV heparin. Her troponins came back positive at 0.038, 0.035 and 0.0 26. The patient's family chest pain for now. CV surgery is on the case. The patient is off Plavix. The patient is being considered for coronary artery bypass surgery next week. She is hemodynamically stable at this point. No cough sputum production or chest that is so wheezing. She tells me that her BiPAP machine was taken away from her as the patient did not demonstrate adequate data as she was hospitalized for pneumonia. Her pneumonia essentially cleared showed no parenchymal lung abnormalities. There is no mediastinal lymphadenopathy. There was a large right axillary lesion measuring 6.5 x 4.8 cm in size ejection of a cyst with overlying scar. Her was a small right-sided pleural effusion with some mild atelectatic changes and mild diffuse bronchial wall thickening without consolidation, and there is a l small hiatal hernia. A 2.4 cm left of the nodule was also seen which is a adenoma and the patient has compression deformity of the level of T11. On 05/31/2017 the patient is free of any chest pain. The patient remains on IV heparin. She'll be kept in the hospital awaiting her surgery. The patient had a blood gases on room air and she demonstrated pH of 7.46 with a pCO2 of 40 and pO2 of 68 and this was done on room air. The cyst in her right axilla was noted. Apparently this was drained on multiple occasions by general surgery and she tells that there is no evidence of any malignancy found on previous drainage procedures. I discussed the case with interventional radiology. We found that there was no need to repeated drainages long as the patient has been drained in the past and the structures of the cystic rather than malignant or solids. On 06/01/2017, the patient is stable and the patient has no new complaints. Simply of any chest pain. She is ambulating. 95% pulse ox on 3 selection by nasal cannula. She is afebrile. No cardiac arrhythmias. No other complaints otherwise for now. Tentative plan is to proceed with surgery next week. On 06/02/2017, the patient is being seen him follow-up. Currently she is interested intensive care unit intubated on a mechanical ventilator. The events that occurred overnight was noted. The patient acutely went into V. fib at around 10:00 and the patient received CPR and defibrillation. The exact downtime was less than 5 minutes. The patient received a total of 2 defibrillation 3 rounds of epinephrine. There was return of spontaneous circulation. The patient was intubated and brought to the intensive care unit. This morning she is sedated With Diprivan and currently Diprivan is running at 50 mics. I was told that the patient was able to follow commands following her cardiac arrest and neurologically seems to be intact despite his underlying cardiac arrest. The patient is on no pressors. Currently she is on assist control mode of ventilation at the rate of 16, tidal volume of 450, FiO2 of 60% and a PEEP of 5. The patient's pH is at 7.39 with a pCO2 of 41 and pO2 of 117. Chest x-ray shows adequate positioning of the ET tube. The patient also has a orogastric tube in place. She is nothing by mouth for now. She has adequate pulses in all 4 extremities. She is calm and comfortable. She is producing urine output in the order of 100 mL an hour. No further cardiac arrhythmias have been noted. The patient was given amiodarone bolus 10 mg and currently she is on a maintenance amiodarone of 0.5 mg/m. Rest of the blood pressure medications are on hold. Beta doretha was given this morning and the patient received Lopressor 25 mg orally. The case was discussed with cardiothoracic surgery. It seems that the patient will need emergent coronary artery bypass surgery and the patient will be taken to the operating room today. On 06/03/2017 I'm seeing this patient for a follow-up. The patient underwent four-vessel bypass surgery. This was done in the afternoon yesterday and the patient arrived back to the intensive care unit around 11 PM. Preoperatively, there has been difficulties with oxygenation and metabolic acidosis. Overall the patient received a total of 6 bicarb amps and the patient arrived to the intensive care unit quite stable on 7 mics of norepinephrine infusion and 1 g of epinephrine infusion.. She was producing adequate amount of urine output and she was hemodynamically stable. Necessary vent changes were done overnight and this morning the patient is on a assist-control mode at the rate of 18, tidal volume of 550, FiO2 has been weaned down to 60% and the current PEEP is at 10. Most recent blood gases showed a pH of 7.46 with a pCO2 of 38 and pO2 of 84 and this was done and FiO2 of 80%. Chest x-ray shows adequate expansion of both lungs. Lung volumes are small. ET tube is in a good location. The patient has 2 chest tubes 1 mediastinal and 1 pleural. No evidence of any pneumothorax. NG tube is in a good location. This morning, the patient is sedated with Diprivan and she is calm and comfortable. We have noted some increased activity in the right upper extremity compared to the left. Note that she is a post cardiac arrest. Mental status was checked preoperatively and she was following some simple commands. In any rate, she is still on Diprivan and Diprivan will be continued as long as the patient is not ready to wean yet. This morning she is on 2 mics of norepinephrine infusion. Cardiac index is at 2.4. Her PA pressures around 35/26, and the chest tube output has been 170 mL from the left pleural and 50s on the mediastinal. No evidence of any air leak. We will lobe and this morning is at 8.7. Correlation profile shows an INR of 1.3 with a PTT of 68. IV heparin was discontinued. Patient was evaluated today on 06/04/2017, remains on mechanical ventilation, her ventilator settings are FiO2 of 65%, tidal volume of 500 assist control rate of 18 and PEEP of 8. ABG showed a pO2 of 62 pCO2 of 34 pH of 7.48. Hence the FiO2 was increased from 60% to 65% and PEEP was increased to 8 as above. Rest of the labs were reviewed the seem to be relatively unremarkable. Chest x- ray showed what seems to be a left lower lobe consolidation. And atelectasis. Hemoglobin is 7.7. Her last echocardiogram showed good LV function. Patient remains on inotropes, but minimal doses. Remains on amiodarone, and she is also on insulin. Chest x-ray showed minimal pulmonary vascular congestion, and atelectasis mostly at the left base. Patient was reevaluated today on 06/05/2017, presently on 60% FiO2, assist control rate was 18, volume of 500, and PEEP was increased to 10. ABG showed a pO2 of 73 pCO2 of 33 pH of 7.48. All labs were reviewed, renal functioning is basically about the same in the last 3 days a 1.20 creatinine, and BUN is 28. Chest x-ray was also reviewed and there is evidence of bibasilar atelectasis, mostly left lower lobe collapse was noted, and the patient underwent bronchoscopy after visualizing her chest x-ray today. PEEP was increased to 10. And the patient was started on empiric antibiotics in the form of Levaquin. Remains on 1 mcg/m of norepinephrine, patient is fully sedated on propofol, however we plan to place the patient on a sedation holiday, and hopefully assess for weaning parameters today. If possible. Patient is clearly not ready for weaning and extubation at this point. Cardiac-munguia she has intermittent episodes of atrial fibrillation, had 1 episode early this morning, presently in normal sinus rhythm. Patient was reevaluated on 06/06/2017, remains on mechanical ventilation, I was able to cut down her FiO2 to 50%, but she remains on a PEEP of 10. Asked x-ray continues to show bilateral opacities at the bases, with more atelectasis is noted in the left lower lobe. All her labs were reviewed, patient was taken off propofol, however the patient remained extremely lethargic, and we did not get to the point where the patient could follow any instructions. Could not even consider a spontaneous breathing trial. At the same time the patient remains on relatively high PEEP, and her ABG remains a very marginal with pO2 in the low 70s. Patient was reevaluated today on 06/07/2017, remains on the same ventilator settings, presently on a pO2 of 50%, and PEEP of 10. ABG was noted, and it is within reasonable range, improved compared to baseline. However not much room to cut down the PEEP any further. Chest x-ray is showing some improvement in her bibasilar atelectasis. Lavage cultures are showing gram-negative bacilli, final identification is pending, patient remains on Levaquin in the meantime. Patient received a unit of packed RBCs today for low hemoglobin of 6.9, and we' ll plan to discontinue sedation, and hopefully assess mental status, and possibly even proceed with spontaneous breathing trials if the patient's mental status allows. Chest x-ray labs and ABG were all reviewed. Objective - Vital Signs Vital signs: Vital Signs Temp 99.2 F 06/07/17 09:52 Pulse 84 06/07/17 11:34 Resp 37 H 06/07/17 10:00 BP 105/60 06/07/17 10:00 Pulse Ox 100 06/07/17 10:00 Intake & Output 06/06/17 06/07/17 06/07/17 18:59 06:59 18:59 Intake Total 8440.975 6840.192 516.200 Output Total 905 1944 275 Balance 1059.633 -50.808 241.200 Weight 129.3 kg 129.3 kg Intake: IV 654.9 548.5 72 0.9 for pressure 69 78 12 Albumin Human 25% 50 ml 100 In Empty Bag 1 bag @ 100 mls/hr IVPB ONCE ONE Rx#: [id number] Amiodarone 83.5 Lactated Ringers 1,000 ml 360 325 60 @ 20 mls/hr IV .Q24H OLVIN Rx#:[id number] Levofloxacin 500Mg-D5w 100 Pmx 500 mg In Dextrose/ Water 1 100ml.bag @ 100 mls/hr IVPB Q24H OLVIN Rx#: [id number] primacor 42.4 45.5 Intake, IV Titration 409.733 749.692 57.200 Amount Amiodarone 450 mg In 209.421 Dextrose 5% in Water 250 ml @ 1 MG/MIN 34.53 mls/ hr IV .Q7H31M PRN Rx#: [id number] Insulin Regular 100 unit 181.658 110.617 44.467 In Sodium Chloride 0.9% 100 ml @ Per Protocol IV .Q0M OLVIN Rx#:[id number] Milrinone-D5w Pmx 20 mg 2.504 In Dextrose/Water 1 100ml .bag @ Per Protocol IV . Q0M OLVIN Rx#:[id number] Propofol 1,000 mg In 228.075 427.150 12.733 Empty Bag 1 bag @ Titrate IV .Q0M OLVIN Rx#: [id number] Oral 222 Tube Feeding 540 395 165 Blood Product 0 Rc As-1 Unit 0 [id number] Other 360 200 Output: Chest Tube Drainage 280 60 50 left pleural 280 60 50 Drainage 220 480 Right Lower Medial Calf 220 480 Urine 405 1404 225 Other: Voiding Method Indwelling Catheter Indwelling Catheter Indwelling Catheter # Voids 2 # Bowel Movements 0 ABP, PAP, CO, CI - Last Documented Arterial Blood Pressure 112/59 Pulmonary Artery Pressure 33/21 Cardiac Output 5 Cardiac Index 2.4 - Exam - Exam Physical examination revealed a 66-year-old female, on mechanical ventilation, off propofol at present, but the patient is not showing any signs of arousal yet. - Constitutional General appearance: Does not seem to be in any form of distress., On mechanical ventilation. - EENT Eyes: PERRLA, EOMI. - Neck Details: Neck is supple, no neck masses, no thyromegaly, lives in the neck were noted endotracheal tube is intact. - Respiratory Details: Lung sounds diminished breath sound bilaterally, no crackles or rhonchi or wheezes, chest tubes noted in place. Sternum seems to be stable. - Cardiovascular Details: Regular rhythm and rate. S1 and S2 present, negative for S3, gallop or murmur. Sternum is stable. - Gastrointestinal Gastrointestinal Comment(s): Soft nontender no megaly no rebound no guarding, positive bowel sounds. - Genitourinary Genitourinary Comment(s): Lea catheter noted. - Integumentary Integumentary Comment(s): Skin is warm and dry. No cyanosis or clubbing. Both lower extremities are dressed with compression stockings and Venodyne boots. - Neurologic Neurologic Comment(s): Patient remains sedated with Diprivan drip which was just placed on hold at present. - Musculoskeletal Musculoskeletal: Cannot be assessed. - Labs CBC & Chem 7: 06/07/17 04:05 06/07/17 04:05 Labs: Abnormal Lab Results - Last 24 Hours (Table) 06/02/17 06/06/17 06/06/17 Range/Units 11:09 13:53 14:50 RBC (3.80-5.40) m/uL Hgb (11.4-16.0) gm/dL Hct (34.0-46.0) % RDW (11.5-15.5) % Plt Count (150-450) k/uL APTT (22.0-30.0) sec ABG pH (7.35-7.45) ABG pO2 (83-108) mmHg ABG HCO3 (21-25) mmol/L ABG Total CO2 (19-24) mmol/L BUN (7-17) mg/dL Creatinine (0.52-1.04) mg/dL Glucose (74-99) mg/dL POC Glucose (mg/dL) 119 H 124 H (75-99) mg/dL Magnesium (1.6-2.3) mg/dL AST (14-36) U/L ALT (9-52) U/L Total Protein (6.3-8.2) g/dL Albumin (3.5-5.0) g/dL Crossmatch See Detail 06/06/17 06/06/17 06/06/17 Range/Units 15:10 15:55 17:10 RBC (3.80-5.40) m/uL Hgb (11.4-16.0) gm/dL Hct (34.0-46.0) % RDW (11.5-15.5) % Plt Count (150-450) k/uL APTT (22.0-30.0) sec ABG pH (7.35-7.45) ABG pO2 (83-108) mmHg ABG HCO3 (21-25) mmol/L ABG Total CO2 (19-24) mmol/L BUN (7-17) mg/dL Creatinine (0.52-1.04) mg/dL Glucose (74-99) mg/dL POC Glucose (mg/dL) 117 H 116 H 116 H (75-99) mg/dL Magnesium (1.6-2.3) mg/dL AST (14-36) U/L ALT (9-52) U/L Total Protein (6.3-8.2) g/dL Albumin (3.5-5.0) g/dL Crossmatch 06/06/17 06/06/17 06/06/17 Range/Units 18:07 18:52 20:00 RBC (3.80-5.40) m/uL Hgb (11.4-16.0) gm/dL Hct (34.0-46.0) % RDW (11.5-15.5) % Plt Count (150-450) k/uL APTT (22.0-30.0) sec ABG pH (7.35-7.45) ABG pO2 (83-108) mmHg ABG HCO3 (21-25) mmol/L ABG Total CO2 (19-24) mmol/L BUN (7-17) mg/dL Creatinine (0.52-1.04) mg/dL Glucose (74-99) mg/dL POC Glucose (mg/dL) 110 H 127 H 122 H (75-99) mg/dL Magnesium (1.6-2.3) mg/dL AST (14-36) U/L ALT (9-52) U/L Total Protein (6.3-8.2) g/dL Albumin (3.5-5.0) g/dL Crossmatch 06/06/17 06/06/17 06/06/17 Range/Units 21:10 22:12 23:06 RBC (3.80-5.40) m/uL Hgb (11.4-16.0) gm/dL Hct (34.0-46.0) % RDW (11.5-15.5) % Plt Count (150-450) k/uL APTT (22.0-30.0) sec ABG pH (7.35-7.45) ABG pO2 (83-108) mmHg ABG HCO3 (21-25) mmol/L ABG Total CO2 (19-24) mmol/L BUN (7-17) mg/dL Creatinine (0.52-1.04) mg/dL Glucose (74-99) mg/dL POC Glucose (mg/dL) 125 H 112 H 132 H (75-99) mg/dL Magnesium (1.6-2.3) mg/dL AST (14-36) U/L ALT (9-52) U/L Total Protein (6.3-8.2) g/dL Albumin (3.5-5.0) g/dL Crossmatch 06/06/17 06/07/17 06/07/17 Range/Units 23:50 00:59 02:02 RBC (3.80-5.40) m/uL Hgb (11.4-16.0) gm/dL Hct (34.0-46.0) % RDW (11.5-15.5) % Plt Count (150-450) k/uL APTT (22.0-30.0) sec ABG pH (7.35-7.45) ABG pO2 (83-108) mmHg ABG HCO3 (21-25) mmol/L ABG Total CO2 (19-24) mmol/L BUN (7-17) mg/dL Creatinine (0.52-1.04) mg/dL Glucose (74-99) mg/dL POC Glucose (mg/dL) 112 H 148 H 157 H (75-99) mg/dL Magnesium (1.6-2.3) mg/dL AST (14-36) U/L ALT (9-52) U/L Total Protein (6.3-8.2) g/dL Albumin (3.5-5.0) g/dL Crossmatch 06/07/17 06/07/17 06/07/17 Range/Units 03:03 04:05 04:05 RBC 2.44 L (3.80-5.40) m/uL Hgb 6.9 L* (11.4-16.0) gm/dL Hct 21.4 L (34.0-46.0) % RDW 15.6 H (11.5-15.5) % Plt Count 107 L (150-450) k/uL APTT (22.0-30.0) sec ABG pH (7.35-7.45) ABG pO2 (83-108) mmHg ABG HCO3 (21-25) mmol/L ABG Total CO2 (19-24) mmol/L BUN 37 H (7-17) mg/dL Creatinine 1.10 H (0.52-1.04) mg/dL Glucose 110 H (74-99) mg/dL POC Glucose (mg/dL) 146 H (75-99) mg/dL Magnesium 2.4 H (1.6-2.3) mg/dL AST 75 H (14-36) U/L ALT 110 H (9-52) U/L Total Protein 4.7 L (6.3-8.2) g/dL Albumin 2.6 L (3.5-5.0) g/dL Crossmatch 06/07/17 06/07/17 06/07/17 Range/Units 04:05 04:07 05:12 RBC (3.80-5.40) m/uL Hgb (11.4-16.0) gm/dL Hct (34.0-46.0) % RDW (11.5-15.5) % Plt Count (150-450) k/uL APTT 20.7 L (22.0-30.0) sec ABG pH (7.35-7.45) ABG pO2 (83-108) mmHg ABG HCO3 (21-25) mmol/L ABG Total CO2 (19-24) mmol/L BUN (7-17) mg/dL Creatinine (0.52-1.04) mg/dL Glucose (74-99) mg/dL POC Glucose (mg/dL) 118 H 119 H (75-99) mg/dL Magnesium (1.6-2.3) mg/dL AST (14-36) U/L ALT (9-52) U/L Total Protein (6.3-8.2) g/dL Albumin (3.5-5.0) g/dL Crossmatch 06/07/17 06/07/17 06/07/17 Range/Units 06:05 06:05 06:49 RBC (3.80-5.40) m/uL Hgb (11.4-16.0) gm/dL Hct (34.0-46.0) % RDW (11.5-15.5) % Plt Count (150-450) k/uL APTT (22.0-30.0) sec ABG pH (7.35-7.45) ABG pO2 (83-108) mmHg ABG HCO3 (21-25) mmol/L ABG Total CO2 (19-24) mmol/L BUN (7-17) mg/dL Creatinine (0.52-1.04) mg/dL Glucose (74-99) mg/dL POC Glucose (mg/dL) 127 H 125 H (75-99) mg/dL Magnesium (1.6-2.3) mg/dL AST (14-36) U/L ALT (9-52) U/L Total Protein (6.3-8.2) g/dL Albumin (3.5-5.0) g/dL Crossmatch See Detail 06/07/17 06/07/17 06/07/17 Range/Units 06:57 07:58 08:09 RBC (3.80-5.40) m/uL Hgb (11.4-16.0) gm/dL Hct (34.0-46.0) % RDW (11.5-15.5) % Plt Count (150-450) k/uL APTT (22.0-30.0) sec ABG pH 7.46 H (7.35-7.45) ABG pO2 75 L (83-108) mmHg ABG HCO3 26 H (21-25) mmol/L ABG Total CO2 27 H (19-24) mmol/L BUN (7-17) mg/dL Creatinine (0.52-1.04) mg/dL Glucose (74-99) mg/dL POC Glucose (mg/dL) 110 H 140 H (75-99) mg/dL Magnesium (1.6-2.3) mg/dL AST (14-36) U/L ALT (9-52) U/L Total Protein (6.3-8.2) g/dL Albumin (3.5-5.0) g/dL Crossmatch 06/07/17 06/07/17 06/07/17 Range/Units 09:05 10:57 12:52 RBC (3.80-5.40) m/uL Hgb (11.4-16.0) gm/dL Hct (34.0-46.0) % RDW (11.5-15.5) % Plt Count (150-450) k/uL APTT (22.0-30.0) sec ABG pH (7.35-7.45) ABG pO2 (83-108) mmHg ABG HCO3 (21-25) mmol/L ABG Total CO2 (19-24) mmol/L BUN (7-17) mg/dL Creatinine (0.52-1.04) mg/dL Glucose (74-99) mg/dL POC Glucose (mg/dL) 131 H 127 H 114 H (75-99) mg/dL Magnesium (1.6-2.3) mg/dL AST (14-36) U/L ALT (9-52) U/L Total Protein (6.3-8.2) g/dL Albumin (3.5-5.0) g/dL Crossmatch Microbiology - Last 24 Hours (Table) 06/05/17 10:18 Gram Stain - Final Bronchial Washings - Random Bronchial Washings Culture - Final Enterobacter cloacae Assessment and Plan Assessment: 1 acute hypoxic respiratory failure requiring intubation secondary to acute cardiac arrest, acute v fibrillation, resuscitated successfully, defibrillated and the patient is currently intubated on a mechanical ventilator. The acute episode of V. fib was probably ischemic in nature. The patient did not have any significant elevation of troponin the EKG today is sinus with a LBBB pattern 2 Symptomatic multivessel coronary artery disease involving the proximal and mid LAD, RCA and diffuse disease in the circumflex coronary artery, post MD, post four-vessel bypass surgery and the patient is postop day #4. Currently on 1 mics of levo fed. Adequate cardiac index and output. Hemodynamically stable. Not ready to wean yet and we are waiting further improvement in oxygenation prior to proceeding with weaning. Currently she is on 10 of PEEP with an FiO2 of 60%. Blood gases was noted. 3 . COPD, with a baseline FEV1 of 76% of predicted on outpatient basis. 4. Obstructive sleep apnea, with baseline AHI of 80, patient was prescribed BiPAP therapy at pressures 21/17 cm of water. 5. Obesity, 6. Coronary artery disease, with previous stenting 7. Recent hospitalization for right lung pneumonia at [facility] in March 2017. Patient had a thoracentesis for pleural effusion during that admission 8. Hyperlipidemia and hypertension hypertension 9. History of right breast cancer with lumpectomy/lymph node removal and radiation 10. GERD/reflux 11 a large cystic structure within the right axilla. Could be a recurrent breast cancer although this is a remote possibility. This has been addressed by many general surgeons out of town, and by Dr. trotter at one point. 12 diabetes mellitus, currently on insulin drip for blood sugar control 13 anemia, hemoglobin is at 7.8 14 strongly suspect pneumonia, initial Gram stain is showing gram-negative bacilli, await the final report, and antibiotics will be adjusted accordingly. Recommendation: Continue present ventilatory support, we will hold propofol today, assess mental status, based on that we'll decide whether to proceed with any spontaneous breathing trials. Critical care time is 35 minutes. Time with Patient: Greater than 30
[2017-06-07 14:18] LABS: Glucose,Whole Blood 115 mg/dL (75-99)
[2017-06-07 15:09] LABS: Glucose,Whole Blood 116 mg/dL (75-99)
--- NOTE | 2017-06-07 16:14 | P.PN ---
Subjective Progress Note Date: 06/07/17 Principal diagnosis: Multivessel coronary artery disease, status post ventricular fibrillation arrest , history of hypertension, hyperlipidemia, insulin dependent diabetes mellitus with preoperative hemoglobin A1c 9.4%, non-ST elevation myocardial infarction this admission and history of previous myocardial infarction with stent placement to the RCA in 2010, preserved left ventricular function with preoperative ejection fraction of 50-55%, mild mitral valve regurgitation, obesity, obstructive sleep apnea, recent pneumonia in March 2017, previous tobacco dependence, right breast cancer with lumpectomy and radiation, chronic obstructive pulmonary disease with preoperative FEV1 of 76% of predicted and preoperative arterial blood gas pH 7.46, pCO2 40, pO2 68, HCO3 28, GERD and family history of premature coronary artery disease. POD #5 coronary artery bypass grafting 4 using the left internal mammary artery to the left anterior descending coronary artery, a reverse greater saphenous vein graft from the aorta to the distal posterior descending coronary artery, a reverse greater saphenous vein graft from the aorta to the ramus intermedius coronary artery, a reverse greater saphenous vein graft from the aorta to the second diagonal coronary artery. Endoscopic harvesting of the right greater saphenous vein. Intraoperative transesophageal echocardiogram and epi-aortic scanning. Intraoperative graft flow measurement using the [employer] system. Status post preoperative acute cardiac arrest with ventricular fibrillation arrest with successful resuscitation. Postoperative prolonged mechanical ventilation secondary to hemodynamic instability and acute hypoxic respiratory failure, an unexpected but potential outcome of surgery. Postoperative atrial fibrillation, an unexpected but potential outcome of surgery. The patient is currently lying in bed in the intensive care unit. She is in no acute distress. She is currently hemodynamically stable. She remains intubated with mechanical ventilator support. ABGs this morning are 7.46 pH, pCO2 36, pO2 75, HCO3 26, oxygen saturation 95.7, base excess 2.1. Oxygen saturations currently 95%. She is currently sedated on Diprivan at 40 mcg/kg/ m. She is not following any verbal commands or moving her extremities with command at this time. Currently in normal sinus rhythm heart rate 82. Objective - Vital Signs Vital signs: Vital Signs Temp 99.2 F 06/07/17 09:52 Pulse 80 06/07/17 15:20 Resp 37 H 06/07/17 10:00 BP 105/60 06/07/17 10:00 Pulse Ox 100 06/07/17 10:00 Intake & Output 06/06/17 06/07/1706/07/18 18:59 06:59 18:59 Intake Total 6157.600 1007.192 932.466 Output Total 905 1944 1480 Balance 1059.633 -50.808 -547.534 Weight 129.3 kg 129.3 kg Intake: IV 654.9 548.5 187 0.9 for pressure 69 78 27 Albumin Human 25% 50 ml 100 In Empty Bag 1 bag @ 100 mls/hr IVPB ONCE ONE Rx#: [id number] Amiodarone 83.5 Lactated Ringers 1,000 ml 360 325 160 @ 20 mls/hr IV .Q24H [facility] Rx#:[id number] Levofloxacin 500Mg-D5w 100 Pmx 500 mg In Dextrose/ Water 1 100ml.bag @ 100 mls/hr IVPB Q24H [facility] Rx#: [id number] primacor 42.4 45.5 Intake, IV Titration 409.733 749.692 97.466 Amount Amiodarone 450 mg In 209.421 Dextrose 5% in Water 250 ml @ 1 MG/MIN 34.53 mls/ hr IV .Q7H31M PRN Rx#: [id number] Insulin Regular 100 unit 181.658 110.617 84.733 In Sodium Chloride 0.9% 100 ml @ Per Protocol IV .Q0M [facility] Rx#:[id number] Milrinone-D5w Pmx 20 mg 2.504 In Dextrose/Water 1 100ml .bag @ Per Protocol IV . Q0M [facility] Rx#:[id number] Propofol 1,000 mg In 228.075 427.150 12.733 Empty Bag 1 bag @ Titrate IV .Q0M [facility] Rx#: [id number] Oral 222 Tube Feeding 540 395 426 Blood Product 0 Rc As-1 Unit 0 [id number] Other 360 200 Output: Chest Tube Drainage 280 60 160 left pleural 280 60 160 Drainage 220 480 165 Right Lower Medial Calf 220 480 165 Urine 405 1404 1155 Other: Voiding Method Indwelling Catheter Indwelling Catheter Indwelling Catheter # Voids 2 # Bowel Movements 0 ABP, PAP, CO, CI - Last Documented Arterial Blood Pressure 112/59 Pulmonary Artery Pressure 33/21 Cardiac Output 5 Cardiac Index 2.4 - Constitutional Constitutional Comment(s): Patient is currently sedated on Diprivan at 40 mcg/kg/m. She remains intubated with mechanical ventilator support. Not following any verbal commands at this time. General appearance: Present: no acute distress, obese - EENT Eyes: Present: PERRLA - Neck Details: Neck is supple, no JVD or lymphadenopathy. Right IJ Cordis in place and functioning. - Respiratory Details: Lung sounds with coarse rhonchi throughout, diminished bilateral bases. Respirations are symmetrical and nonlabored with mechanical ventilator support. Current ventilator settings are as follows: AC 18, TV 500, FiO2 50%, peep 10. Current oxygen saturation is with current mechanical ventilator settings are 95%. Left pleural chest tube remain intact to low continuous wall suction -20 cm H2O. No air leak present. Draining thin serosanguineous drainage. 40 mL output in the last 8 hours, 330 mL output in the last 24 hours. - Cardiovascular Details: Regular rhythm and rate. S1 and S2 present, negative for S3, gallop or murmur. Sternum is stable. Atrial and ventricular epicardial pacemaker wires intact and grounded. Knee-high DIVINE hose and sequential compression devices in place to bilateral lower extremities. Heart hugger is in place. +1 generalized edema. Current CVP 20 mmHg. Left femoral arterial line present and functioning. - Gastrointestinal Gastrointestinal Comment(s): Abdomen soft, nontender and nondistended. Hypoactive bowel sounds to all 4 abdominal quadrants. OG tube in place with tube feedings vital high-protein infusing at goal rate of 45 mL per hour with 100 mL every 4 hour water flushes. No bowel movement since surgery. - Genitourinary Genitourinary Comment(s): Lea catheter for accurate I&O. Clear yellow urine. 1315 mL output in the last 8 hours. - Neurologic Neurologic Comment(s): Currently sedated on propofol drip at 40 mcg/kg/m. - Allied health notes Allied health notes reviewed: nursing - Labs CBC & Chem 7: 06/07/17 04:05 06/07/17 04:05 Labs: Abnormal Lab Results - Last 24 Hours (Table) 06/02/17 06/06/17 06/06/17 Range/Units 11:09 15:55 17:10 RBC (3.80-5.40) m/uL Hgb (11.4-16.0) gm/dL Hct (34.0-46.0) % RDW (11.5-15.5) % Plt Count (150-450) k/uL APTT (22.0-30.0) sec ABG pH (7.35-7.45) ABG pO2 (83-108) mmHg ABG HCO3 (21-25) mmol/L ABG Total CO2 (19-24) mmol/L BUN (7-17) mg/dL Creatinine (0.52-1.04) mg/dL Glucose (74-99) mg/dL POC Glucose (mg/dL) 116 H 116 H (75-99) mg/dL Magnesium (1.6-2.3) mg/dL AST (14-36) U/L ALT (9-52) U/L Total Protein (6.3-8.2) g/dL Albumin (3.5-5.0) g/dL Crossmatch See Detail 06/06/17 06/06/17 06/06/17 Range/Units 18:07 18:52 20:00 RBC (3.80-5.40) m/uL Hgb (11.4-16.0) gm/dL Hct (34.0-46.0) % RDW (11.5-15.5) % Plt Count (150-450) k/uL APTT (22.0-30.0) sec ABG pH (7.35-7.45) ABG pO2 (83-108) mmHg ABG HCO3 (21-25) mmol/L ABG Total CO2 (19-24) mmol/L BUN (7-17) mg/dL Creatinine (0.52-1.04) mg/dL Glucose (74-99) mg/dL POC Glucose (mg/dL) 110 H 127 H 122 H (75-99) mg/dL Magnesium (1.6-2.3) mg/dL AST (14-36) U/L ALT (9-52) U/L Total Protein (6.3-8.2) g/dL Albumin (3.5-5.0) g/dL Crossmatch 06/06/17 06/06/17 06/06/17 Range/Units 21:10 22:12 23:06 RBC (3.80-5.40) m/uL Hgb (11.4-16.0) gm/dL Hct (34.0-46.0) % RDW (11.5-15.5) % Plt Count (150-450) k/uL APTT (22.0-30.0) sec ABG pH (7.35-7.45) ABG pO2 (83-108) mmHg ABG HCO3 (21-25) mmol/L ABG Total CO2 (19-24) mmol/L BUN (7-17) mg/dL Creatinine (0.52-1.04) mg/dL Glucose (74-99) mg/dL POC Glucose (mg/dL) 125 H 112 H 132 H (75-99) mg/dL Magnesium (1.6-2.3) mg/dL AST (14-36) U/L ALT (9-52) U/L Total Protein (6.3-8.2) g/dL Albumin (3.5-5.0) g/dL Crossmatch 06/06/17 06/07/17 06/07/17 Range/Units 23:50 00:59 02:02 RBC (3.80-5.40) m/uL Hgb (11.4-16.0) gm/dL Hct (34.0-46.0) % RDW (11.5-15.5) % Plt Count (150-450) k/uL APTT (22.0-30.0) sec ABG pH (7.35-7.45) ABG pO2 (83-108) mmHg ABG HCO3 (21-25) mmol/L ABG Total CO2 (19-24) mmol/L BUN (7-17) mg/dL Creatinine (0.52-1.04) mg/dL Glucose (74-99) mg/dL POC Glucose (mg/dL) 112 H 148 H 157 H (75-99) mg/dL Magnesium (1.6-2.3) mg/dL AST (14-36) U/L ALT (9-52) U/L Total Protein (6.3-8.2) g/dL Albumin (3.5-5.0) g/dL Crossmatch 06/07/17 06/07/17 06/07/17 Range/Units 03:03 04:05 04:05 RBC 2.44 L (3.80-5.40) m/uL Hgb 6.9 L* (11.4-16.0) gm/dL Hct 21.4 L (34.0-46.0) % RDW 15.6 H (11.5-15.5) % Plt Count 107 L (150-450) k/uL APTT (22.0-30.0) sec ABG pH (7.35-7.45) ABG pO2 (83-108) mmHg ABG HCO3 (21-25) mmol/L ABG Total CO2 (19-24) mmol/L BUN 37 H (7-17) mg/dL Creatinine 1.10 H (0.52-1.04) mg/dL Glucose 110 H (74-99) mg/dL POC Glucose (mg/dL) 146 H (75-99) mg/dL Magnesium 2.4 H (1.6-2.3) mg/dL AST 75 H (14-36) U/L ALT 110 H (9-52) U/L Total Protein 4.7 L (6.3-8.2) g/dL Albumin 2.6 L (3.5-5.0) g/dL Crossmatch 06/07/17 06/07/17 06/07/17 Range/Units 04:05 04:07 05:12 RBC (3.80-5.40) m/uL Hgb (11.4-16.0) gm/dL Hct (34.0-46.0) % RDW (11.5-15.5) % Plt Count (150-450) k/uL APTT 20.7 L (22.0-30.0) sec ABG pH (7.35-7.45) ABG pO2 (83-108) mmHg ABG HCO3 (21-25) mmol/L ABG Total CO2 (19-24) mmol/L BUN (7-17) mg/dL Creatinine (0.52-1.04) mg/dL Glucose (74-99) mg/dL POC Glucose (mg/dL) 118 H 119 H (75-99) mg/dL Magnesium (1.6-2.3) mg/dL AST (14-36) U/L ALT (9-52) U/L Total Protein (6.3-8.2) g/dL Albumin (3.5-5.0) g/dL Crossmatch 06/07/17 06/07/17 06/07/17 Range/Units 06:05 06:05 06:49 RBC (3.80-5.40) m/uL Hgb (11.4-16.0) gm/dL Hct (34.0-46.0) % RDW (11.5-15.5) % Plt Count (150-450) k/uL APTT (22.0-30.0) sec ABG pH (7.35-7.45) ABG pO2 (83-108) mmHg ABG HCO3 (21-25) mmol/L ABG Total CO2 (19-24) mmol/L BUN (7-17) mg/dL Creatinine (0.52-1.04) mg/dL Glucose (74-99) mg/dL POC Glucose (mg/dL) 127 H 125 H (75-99) mg/dL Magnesium (1.6-2.3) mg/dL AST (14-36) U/L ALT (9-52) U/L Total Protein (6.3-8.2) g/dL Albumin (3.5-5.0) g/dL Crossmatch See Detail 06/07/17 06/07/17 06/07/17 Range/Units 06:57 07:58 08:09 RBC (3.80-5.40) m/uL Hgb (11.4-16.0) gm/dL Hct (34.0-46.0) % RDW (11.5-15.5) % Plt Count (150-450) k/uL APTT (22.0-30.0) sec ABG pH 7.46 H (7.35-7.45) ABG pO2 75 L (83-108) mmHg ABG HCO3 26 H (21-25) mmol/L ABG Total CO2 27 H (19-24) mmol/L BUN (7-17) mg/dL Creatinine (0.52-1.04) mg/dL Glucose (74-99) mg/dL POC Glucose (mg/dL) 110 H 140 H (75-99) mg/dL Magnesium (1.6-2.3) mg/dL AST (14-36) U/L ALT (9-52) U/L Total Protein (6.3-8.2) g/dL Albumin (3.5-5.0) g/dL Crossmatch 06/07/17 06/07/17 06/07/17 Range/Units 09:05 10:57 12:52 RBC (3.80-5.40) m/uL Hgb (11.4-16.0) gm/dL Hct (34.0-46.0) % RDW (11.5-15.5) % Plt Count (150-450) k/uL APTT (22.0-30.0) sec ABG pH (7.35-7.45) ABG pO2 (83-108) mmHg ABG HCO3 (21-25) mmol/L ABG Total CO2 (19-24) mmol/L BUN (7-17) mg/dL Creatinine (0.52-1.04) mg/dL Glucose (74-99) mg/dL POC Glucose (mg/dL) 131 H 127 H 114 H (75-99) mg/dL Magnesium (1.6-2.3) mg/dL AST (14-36) U/L ALT (9-52) U/L Total Protein (6.3-8.2) g/dL Albumin (3.5-5.0) g/dL Crossmatch 06/07/17 06/07/17 Range/Units 14:15 15:06 RBC (3.80-5.40) m/uL Hgb (11.4-16.0) gm/dL Hct (34.0-46.0) % RDW (11.5-15.5) % Plt Count (150-450) k/uL APTT (22.0-30.0) sec ABG pH (7.35-7.45) ABG pO2 (83-108) mmHg ABG HCO3 (21-25) mmol/L ABG Total CO2 (19-24) mmol/L BUN (7-17) mg/dL Creatinine (0.52-1.04) mg/dL Glucose (74-99) mg/dL POC Glucose (mg/dL) 115 H 116 H (75-99) mg/dL Magnesium (1.6-2.3) mg/dL AST (14-36) U/L ALT (9-52) U/L Total Protein (6.3-8.2) g/dL Albumin (3.5-5.0) g/dL Crossmatch Microbiology - Last 24 Hours (Table) 06/05/17 10:18 Gram Stain - Final Bronchial Washings - Random Bronchial Washings Culture - Final Enterobacter cloacae - Imaging and Cardiology Chest x-ray: report reviewed, image reviewed Assessment and Plan (1) History of right breast cancer Current Visit: Yes Status: Acute Code(s): Z85.3 - PERSONAL HISTORY OF MALIGNANT NEOPLASM OF BREAST SNOMED Code(s): 126093495 (2) Non-STEMI (non-ST elevated myocardial infarction) Current Visit: Yes Status: Acute Code(s): I21.4 - NON-ST ELEVATION (NSTEMI) MYOCARDIAL INFARCTION SNOMED Code(s): 775504792 (3) Diabetes mellitus Current Visit: Yes Status: Chronic Code(s): E11.9 - TYPE 2 DIABETES MELLITUS WITHOUT COMPLICATIONS SNOMED Code(s): 95854741 (4) Family history of premature coronary artery disease Current Visit: Yes Status: Chronic Code(s): Z82.49 - FAMILY HX OF ISCHEM HEART DIS AND OTH DIS OF THE CIRC SYS SNOMED Code(s): 808585531 (5) History of heart artery stent Current Visit: Yes Status: Chronic Code(s): Z95.5 - PRESENCE OF CORONARY ANGIOPLASTY IMPLANT AND GRAFT SNOMED Code(s): 202626102 (6) Hyperlipidemia Current Visit: Yes Status: Chronic Code(s): E78.5 - HYPERLIPIDEMIA, UNSPECIFIED SNOMED Code(s): 67114575 (7) Hypertension Current Visit: Yes Status: Chronic Code(s): I10 - ESSENTIAL (PRIMARY) HYPERTENSION SNOMED Code(s): 73727759 (8) Morbid obesity with BMI of 40.0-44.9, adult Current Visit: Yes Status: Chronic Code(s): E66.01 - MORBID (SEVERE) OBESITY DUE TO EXCESS CALORIES; Z68.41 - BODY MASS INDEX (BMI) 40.0-44.9, ADULT SNOMED Code(s): 613937400 (9) History of sudden cardiac arrest successfully resuscitated Current Visit: Yes Status: Acute Code(s): Z86.74 - PERSONAL HISTORY OF SUDDEN CARDIAC ARREST SNOMED Code(s): 944698728 Plan: 1. Continue aspirin, Plavix, statin, metoprolol and subcu heparin. We will increase the metoprolol tartrate as tolerated. 2. Hemoglobin today is 6.9, we will transfuse 1 unit of PRBCs followed by Lasix 40 mg IV 1. 3. Continue amiodarone 200 mg by mouth twice a day for atrial fibrillation prophylaxis. 4. Continue Primacor to 0.125 mcg/kg/m and leave running until extubated. 5. Mechanical ventilator management and recommendations per pulmonary medicine. 6. Medical management and insulin management per primary care service. 7. DVT and GI prophylaxis. Knee-high DIVINE hose and sequential compression devices in place. 8. We will add Pulmicort nebulizer treatments. 9. Keep her left pleural chest tube in place to low continuous wall suction - 20 cm H2O. 10. Bronchial washings Gram stain showing Enterobacter cloacae currently on Levaquin. 11. Monitor daily labs and chest x-rays. 12. Continue tube feedings for maximal nutritional support per dietary recommendations. 13. More recommendations to follow as the patient progresses in her care. Time with Patient: Greater than 30
--- NOTE | 2017-06-07 16:51 | PN ---
PROGRESS NOTE DATE OF SERVICE: June 07, 2017 PRESENTING COMPLAINT: Intubated. INTERVAL HISTORY: This patient with known coronary artery disease, presented with acute IN, then had a cardiac arrest followed with VFib followed by 4 vessel coronary bypass remains on the ventilator. FiO2 of 50 with PEEP of 10. The patient's hemoglobin did drop to 6.9, was given a unit of blood. Tube feedings running at 45 mL an hour, which is goal. Drips include Diprivan, Primacor, insulin. Telemetry shows sinus rhythm. The patient is status post bronchoscopy. Cultures growing gram-negative bacilli. She is on Levaquin. Minimal endotracheal secretion. REVIEW OF SYSTEMS: Patient is intubated. CURRENT MEDICATIONS: As above including Levaquin. PHYSICAL EXAMINATION: On examination afebrile, pulse 80, respiration 34, blood pressure 117/61, pulse ox 96% percent. GENERAL: Lying in bed, intubated, eyes pupils are equal. Conjunctivae normal. HEENT: External appearance of nose and ears normal. Oral cavity endotracheal tube in place. Neck JVD unable to assess. Mass not palpable. Respiratory effort increased lungs. Diminished distant breath sounds. Cardiovascular heart sounds muffled, no edema. ABDOMEN: Soft, nontender. Liver and spleen not palpable. Chest: Left-sided pleural chest tube. Neurological: Pupils are equal. Conjunctivae normal. INVESTIGATIONS: White count 5.1, hemoglobin 6.9, platelets 107. BUN 37, creatinine 1.10, potassium 4.1. The patient's bronch washings are coming back showing Enterobacter cloacae. ASSESSMENT: 1. 4 vessel coronary bypass with the left pleural chest tube in place with dense chest tube was taken out. 2. Coronary artery disease with prior history of stent, presented with acute myocardial infarction on this admission followed by cardiac arrest with ventricular fibrillation. 3. Morbid obesity BMI greater than 50. 4. Intermittent asthma. 5. Diabetes mellitus type 2, chronically requiring insulin currently with insulin drip. 6. Gastroesophageal reflux disease. 7. Hyperlipidemia. 8. Obstructive sleep apnea was using a CPAP until recently. 9. Right mastectomy for cancer. 10.Right axillary lesion, being followed as an outpatient. 11.Bilateral nephrolithiasis asymptomatic. 12.Left adrenal nodule 2.5 cm. 13.Hypertensive heart disease. 14.Acute respiratory failure, on ventilator assistance. 15.Acute blood loss anemia expected from surgery requiring blood transfusion. 16.Dilutional thrombocytopenia. 17.Hypoalbuminemia as an acute phase reactant. 18.Paroxysmal atrial fibrillation. 19.Pneumonia, now with bronchial cultures showing Enterobacter cloacae. PLAN: Continue current medication and treatment plan. Supportive care. Prognosis remains guarded. We will discuss with Dr. Waddell if the patient should be switched from Levaquin to either Zosyn or meropenem for the bacteria. MMODL / IJN: [id number] /
[2017-06-07 17:04] LABS: Glucose,Whole Blood 117 mg/dL (75-99)
[2017-06-07] MEDS: MORPHINE SULFATE 4 MG/ML SYRINGE IVP PRN (17:59)
[2017-06-07 18:09] LABS: Glucose,Whole Blood 115 mg/dL (75-99)
[2017-06-07 20:15] LABS: Glucose,Whole Blood 104 mg/dL (75-99)
[2017-06-07] MEDS: SENNOSIDES-DOCUSATE SODIUM 1 EACH TAB PO SCH (20:51)
[2017-06-07 21:01] LABS: Glucose,Whole Blood 107 mg/dL (75-99)
[2017-06-07] MEDS: BUDESONIDE 1 MG/2 ML NEBU INHALATION SCH (21:07)
[2017-06-07 22:02] LABS: Glucose,Whole Blood 126 mg/dL (75-99)
[2017-06-08 00:01] LABS: Glucose,Whole Blood 98 mg/dL (75-99)
[2017-06-08] MEDS: INSULIN REGULAR 100 UNIT in SODIUM CHLORIDE 0.9% 100 ML IV SCH ×3 (00:30→20:33)
[2017-06-08] MEDS: MORPHINE SULFATE 4 MG/ML SYRINGE IVP PRN ×3 (00:32→18:20)
[2017-06-08] MEDS: PROPOFOL 1,000 MG in EMPTY BAG 1 BAG IV SCH ×5 (00:34→20:37)
[2017-06-08] MEDS: LACTATED RINGERS 1,000 ML IV SCH ×2 (00:37→23:22)
[2017-06-08] MEDS: HEPARIN SODIUM,PORCINE 5,000 UNIT/ML 1 ML VIAL SQ SCH ×4 (00:37→23:22)
[2017-06-08 02:09] LABS: Glucose,Whole Blood 110 mg/dL (75-99)
[2017-06-08] MEDS: IPRATROPIUM-ALBUTEROL 3 ML NEB INHALATION SCH ×5 (03:47→19:49)
[2017-06-08 04:26] LABS: Glucose,Whole Blood 105 mg/dL (75-99)
[2017-06-08 04:34] LABS: Basophils % (A) 0 %; Eosinophils # (A) 0.3 k/uL (0-0.7); Eosinophils % (A) 4 %; HCT 24.8 % (34.0-46.0); HGB 7.7 gm/dL (11.4-16.0); Hypochromasia Slight; Lymphocytes # (A) 0.9 k/uL (1.0-4.8); Lymphocytes % (A) 13 %; MCH 27.5 pg (25.0-35.0); MCHC 31.1 g/dL (31.0-37.0); MCV 88.3 fL (80.0-100.0); Mean Platelet Volume 10.9; Monocytes # (A) 0.3 k/uL (0-1.0); Monocytes % (A) 5 %; Neutrophils % (A) 75 %; Platelet Count 128 k/uL (150-450); Poikilocytosis Slight; RBC 2.81 m/uL (3.80-5.40); RDW 15.6 % (11.5-15.5); WBC 6.6 k/uL (3.8-10.6)
[2017-06-08 04:39] LABS: Ionized Calcium 5.1 mg/dL (4.5-5.3)
[2017-06-08 04:49] LABS: Albumin 2.6 g/dL (3.5-5.0); Calcium 8.7 mg/dL (8.4-10.2); Magnesium 2.5 mg/dL (1.6-2.3); Phosphorus 3.4 mg/dL (2.5-4.5); Potassium 3.9 mmol/L (3.5-5.1); Total Bilirubin 0.7 mg/dL (0.2-1.3)
[2017-06-08 06:04] LABS: Glucose,Whole Blood 111 mg/dL (75-99)
[2017-06-08 07:16] LABS: ABG Base Excess 2.8 mmol/L; ABG HCO3 27 mmol/L (21-25); ABG Oxygen Saturation 96.1 % (94-97); ABG PCO2 37 mmHg (35-45); ABG PH 7.47 (7.35-7.45); ABG PO2 79 mmHg (83-108); ABG TCO2 28 mmol/L (19-24)
[2017-06-08] MEDS: BUDESONIDE 1 MG/2 ML NEBU INHALATION SCH ×2 (07:41→19:49)
[2017-06-08 08:10] LABS: Glucose,Whole Blood 98 mg/dL (75-99)
--- NOTE | 2017-06-08 08:12 | XR ---
EXAMINATION TYPE: XR chest 1V portable DATE OF EXAM: 06/08/2017 COMPARISON: 06/07/2017 HISTORY: Ventilatory dependent respiratory failure. TECHNIQUE: Single frontal view of the chest is obtained. FINDINGS: There are low lung volumes. Crowding of pulmonary vasculature. Again there is mild pulmona ry vascular congestion and interstitial edema with linear left midlung atelectasis. Enteric and endot alannah tubes are unchanged. Postoperative changes from prior CABG are seen with cardiomegaly redemon strated. Osseous structures are grossly intact. Left thoracostomy tube is unchanged in position with no residual pneumothorax seen. Left PICC is also unchanged. IMPRESSION: 1. Stable pulmonary vascular congestion and interstitial edema examination with cardiomegaly relate t o underlying congestive heart failure. 2. Unchanged positioning of lines and tubes with no residual left pneumothorax.
[2017-06-08] MEDS: POTASSIUM BICARBONATE/CIT AC 20 MEQ TABLET.EFF PO SCH (08:36)
[2017-06-08] MEDS: PANTOPRAZOLE 40 MG/10 ML VIAL IVP SCH (08:36)
[2017-06-08] MEDS: ASCORBIC ACID 500 MG TAB PO SCH ×2 (08:36→20:36)
[2017-06-08] MEDS: ATORVASTATIN 40 MG TAB PO SCH (08:37)
[2017-06-08] MEDS: METOPROLOL TARTRATE 25 MG TAB OG-TUBE SCH ×2 (08:37→20:36)
[2017-06-08] MEDS: CLOPIDOGREL 75 MG TAB PO SCH (08:37)
[2017-06-08] MEDS: AMIODARONE 200 MG TAB PO SCH ×2 (08:37→20:35)
[2017-06-08] MEDS: FERROUS SULFATE 325 MG TAB PO SCH ×2 (08:37→16:51)
[2017-06-08] MEDS: CHLORHEXIDINE GLUCONATE 15 ML CUP MUCOUS MEM SCH ×2 (08:38→20:36)
[2017-06-08] MEDS: ASPIRIN 81 MG PO SCH (08:38)
[2017-06-08] MEDS ORDERED: FUROSEMIDE 10 MG/ML 4 ML VIAL IV STA (08:45)
[2017-06-08 09:03] LABS: Glucose,Whole Blood 131 mg/dL (75-99)
[2017-06-08 10:11] LABS: Glucose,Whole Blood 121 mg/dL (75-99)
[2017-06-08] MEDS: MEROPENEM 1 GM in SODIUM CHLORIDE 0.9% 100 ML IVPB SCH ×3 (10:20→23:22)
--- NOTE | 2017-06-08 10:22 | P.PN ---
Subjective Progress Note Date: 06/08/17 Principal diagnosis: Diffuse severe calcific coronary artery disease. Non-ST elevation myocardial infarction. Preserved left ventricular function with preoperative ejection fraction of 50-55%. Mild mitral valve regurgitation. Status post ventricular fibrillation arrest. Previous medical history of hypertension, hyperlipidemia, insulin dependent diabetes mellitus with current hemoglobin A1c 9.4%, previous myocardial infarction with stent placement to the RCA in 2010, obesity, obstructive sleep apnea, recent pneumonia in March 2017, previous tobacco dependence with preoperative FEV1 77% of predicted and preoperative arterial blood gas on room air pH 7.46, pCO2 40, pO2 68, HCO3 28, right breast cancer with lumpectomy and radiation, and family history of premature coronary artery disease. POD #6 urgent coronary artery bypass grafting 4 using the left internal mammary artery to the left anterior descending artery, reverse saphenous vein graft from the aorta to the distal posterior descending artery, reverse saphenous vein graft from the aorta to the ramus intermedius artery, reverse saphenous vein graft from the aorta to the second diagonal artery. Endoscopic harvesting of the right greater saphenous vein. Intraoperative transesophageal echocardiogram and epi-aortic scanning. Intraoperative graft flow measurements using the Corporastim system. Status post preoperative ventricular fibrillation arrest with successful resuscitation. Postoperative prolonged mechanical ventilation secondary to hemodynamic instability, an unexpected but potential outcome of surgery. Postoperative atrial fibrillation, an unexpected but potential outcome of surgery. POD #2 bronchoscopy per pulmonology, bronchial washings positive for Enterobacter cloacae Postoperative acute blood loss anemia, a potential expected outcome of surgery. Patient currently laying in bed in no acute distress on mechanical ventilation. Weaning trial done yesterday, will be tried again today. Remains on Primacor. Patient did receive 1 unit packed red blood cells yesterday. Objective - Vital Signs Vital signs: Vital Signs Temp 98.9 F 06/08/17 04:00 Pulse 85 06/08/17 09:00 Resp 18 06/08/17 09:00 BP 125/61 06/08/17 09:00 Pulse Ox 97 06/08/17 09:00 Intake & Output 06/07/17 06/08/17 06/08/17 18:59 06:59 18:59 Intake Total 6667.474 4857.564 163.4 Output Total 1940 1475 205 Balance -514.534 540.564 -41.6 Weight 129.3 kg 125.9 kg Intake: IV 256 350.6 55.4 0.9 40 0.9 for pressure 36 39 6 Lactated Ringers 1,000 ml 220 260 @ 20 mls/hr IV .Q24H [facility] Rx#:[id number] primacor 51.6 9.4 Intake, IV Titration 197.466 392.964 Amount Insulin Regular 100 unit 84.733 101.242 In Sodium Chloride 0.9% 100 ml @ Per Protocol IV .Q0M [facility] Rx#:[id number] Propofol 1,000 mg In 112.733 291.722 Empty Bag 1 bag @ Titrate IV .Q0M [facility] Rx#: [id number] Oral 222 Tube Feeding 750 972 108 Blood Product 0 Rc As-1 Unit 0 [id number] Other 300 Output: Chest Tube Drainage 205 110 left pleural 205 110 Drainage 215 435 45 Right Lower Medial Calf 215 435 45 Urine 1520 930 160 Other: Voiding Method Indwelling Catheter Indwelling Catheter Indwelling Catheter ABP, PAP, CO, CI - Last Documented Arterial Blood Pressure 134/64 Pulmonary Artery Pressure 33/21 Cardiac Output 5 Cardiac Index 2.4 - Constitutional General appearance: Present: no acute distress, obese - Respiratory Details: Lungs sounds diminished bilaterally with expiratory wheezes present. Respirations even, nonlabored on mechanical ventilation. Current ventilator settings assist control mode, FiO2 50%, tidal volume 500, respiratory rate 18, PEEP 10. 8.0 ET tube present, 23 at the lip. Pleural chest tube was to continuous wall suction, 66 mL drainage overnight, 130 mL in 24 hours, discontinued at this morning without incident. - Cardiovascular Details: S1, S2 present. Regular rate and rhythm, sinus rhythm on telemetry. A/V epicardial pacemaker wires present, grounded. Sternum stable. Palpable peripheral pulses bilaterally. Generalized edema present. Left radial arterial line, left brachial PICC line present. Heart hugger in place, antiembolism stockings, SCDs present. - Gastrointestinal Gastrointestinal Comment(s): Abdomen soft, nontender, nondistended. Active bowel sounds 4 quadrants. OG tube present, tube feedings infusing a 54 ml/hr with minimal residual per nursing. - Genitourinary Genitourinary Comment(s): Lea present draining clear, yellow urine. Output 60-75 mL/h overnight. - Integumentary Integumentary Comment(s): Skin is warm and dry with evidence of good perfusion. Anterior chest incision well approximated covered dry intact dressing. Right lower extremity EVH site well approximated, DREW drain present with 245 mL of thin serosanguineous drainage overnight. - Neurologic Neurologic Comment(s): Sedated with propofol. Off propofol patient does open her eyes and tracks, doesn't follow commands per nursing. - Allied health notes Allied health notes reviewed: nursing - Labs CBC & Chem 7: 06/08/17 04:30 06/08/17 04:30 Labs: Abnormal Lab Results - Last 24 Hours (Table) 06/02/17 06/07/17 06/07/17 Range/Units 11:09 06:05 10:57 RBC (3.80-5.40) m/uL Hgb (11.4-16.0) gm/dL Hct (34.0-46.0) % RDW (11.5-15.5) % Plt Count (150-450) k/uL Lymphocytes # (1.0-4.8) k/uL ABG pH (7.35-7.45) ABG pO2 (83-108) mmHg ABG HCO3 (21-25) mmol/L ABG Total CO2 (19-24) mmol/L Chloride (98-107) mmol/L BUN (7-17) mg/dL Glucose (74-99) mg/dL POC Glucose (mg/dL) 127 H (75-99) mg/dL Magnesium (1.6-2.3) mg/dL AST (14-36) U/L ALT (9-52) U/L Total Protein (6.3-8.2) g/dL Albumin (3.5-5.0) g/dL Crossmatch See Detail See Detail 06/07/17 06/07/17 06/07/17 Range/Units 12:52 14:15 15:06 RBC (3.80-5.40) m/uL Hgb (11.4-16.0) gm/dL Hct (34.0-46.0) % RDW (11.5-15.5) % Plt Count (150-450) k/uL Lymphocytes # (1.0-4.8) k/uL ABG pH (7.35-7.45) ABG pO2 (83-108) mmHg ABG HCO3 (21-25) mmol/L ABG Total CO2 (19-24) mmol/L Chloride (98-107) mmol/L BUN (7-17) mg/dL Glucose (74-99) mg/dL POC Glucose (mg/dL) 114 H 115 H 116 H (75-99) mg/dL Magnesium (1.6-2.3) mg/dL AST (14-36) U/L ALT (9-52) U/L Total Protein (6.3-8.2) g/dL Albumin (3.5-5.0) g/dL Crossmatch 06/07/17 06/07/17 06/07/17 Range/Units 17:01 18:07 20:12 RBC (3.80-5.40) m/uL Hgb (11.4-16.0) gm/dL Hct (34.0-46.0) % RDW (11.5-15.5) % Plt Count (150-450) k/uL Lymphocytes # (1.0-4.8) k/uL ABG pH (7.35-7.45) ABG pO2 (83-108) mmHg ABG HCO3 (21-25) mmol/L ABG Total CO2 (19-24) mmol/L Chloride (98-107) mmol/L BUN (7-17) mg/dL Glucose (74-99) mg/dL POC Glucose (mg/dL) 117 H 115 H 104 H (75-99) mg/dL Magnesium (1.6-2.3) mg/dL AST (14-36) U/L ALT (9-52) U/L Total Protein (6.3-8.2) g/dL Albumin (3.5-5.0) g/dL Crossmatch 06/07/17 06/07/17 06/08/17 Range/Units 21:00 22:00 02:08 RBC (3.80-5.40) m/uL Hgb (11.4-16.0) gm/dL Hct (34.0-46.0) % RDW (11.5-15.5) % Plt Count (150-450) k/uL Lymphocytes # (1.0-4.8) k/uL ABG pH (7.35-7.45) ABG pO2 (83-108) mmHg ABG HCO3 (21-25) mmol/L ABG Total CO2 (19-24) mmol/L Chloride (98-107) mmol/L BUN (7-17) mg/dL Glucose (74-99) mg/dL POC Glucose (mg/dL) 107 H 126 H 110 H (75-99) mg/dL Magnesium (1.6-2.3) mg/dL AST (14-36) U/L ALT (9-52) U/L Total Protein (6.3-8.2) g/dL Albumin (3.5-5.0) g/dL Crossmatch 06/08/17 06/08/17 06/08/17 Range/Units 04:23 04:30 04:30 RBC 2.81 L (3.80-5.40) m/uL Hgb 7.7 L (11.4-16.0) gm/dL Hct 24.8 L (34.0-46.0) % RDW 15.6 H (11.5-15.5) % Plt Count 128 L (150-450) k/uL Lymphocytes # 0.9 L (1.0-4.8) k/uL ABG pH (7.35-7.45) ABG pO2 (83-108) mmHg ABG HCO3 (21-25) mmol/L ABG Total CO2 (19-24) mmol/L Chloride 109 H (98-107) mmol/L BUN 37 H (7-17) mg/dL Glucose 104 H (74-99) mg/dL POC Glucose (mg/dL) 105 H (75-99) mg/dL Magnesium 2.5 H (1.6-2.3) mg/dL AST 43 H (14-36) U/L ALT 87 H (9-52) U/L Total Protein 5.0 L (6.3-8.2) g/dL Albumin 2.6 L (3.5-5.0) g/dL Crossmatch 06/08/17 06/08/17 06/08/17 Range/Units 06:03 07:10 09:01 RBC (3.80-5.40) m/uL Hgb (11.4-16.0) gm/dL Hct (34.0-46.0) % RDW (11.5-15.5) % Plt Count (150-450) k/uL Lymphocytes # (1.0-4.8) k/uL ABG pH 7.47 H (7.35-7.45) ABG pO2 79 L (83-108) mmHg ABG HCO3 27 H (21-25) mmol/L ABG Total CO2 28 H (19-24) mmol/L Chloride (98-107) mmol/L BUN (7-17) mg/dL Glucose (74-99) mg/dL POC Glucose (mg/dL) 111 H 131 H (75-99) mg/dL Magnesium (1.6-2.3) mg/dL AST (14-36) U/L ALT (9-52) U/L Total Protein (6.3-8.2) g/dL Albumin (3.5-5.0) g/dL Crossmatch 06/08/17 Range/Units 10:10 RBC (3.80-5.40) m/uL Hgb (11.4-16.0) gm/dL Hct (34.0-46.0) % RDW (11.5-15.5) % Plt Count (150-450) k/uL Lymphocytes # (1.0-4.8) k/uL ABG pH (7.35-7.45) ABG pO2 (83-108) mmHg ABG HCO3 (21-25) mmol/L ABG Total CO2 (19-24) mmol/L Chloride (98-107) mmol/L BUN (7-17) mg/dL Glucose (74-99) mg/dL POC Glucose (mg/dL) 121 H (75-99) mg/dL Magnesium (1.6-2.3) mg/dL AST (14-36) U/L ALT (9-52) U/L Total Protein (6.3-8.2) g/dL Albumin (3.5-5.0) g/dL Crossmatch Microbiology - Last 24 Hours (Table) 06/05/17 10:18 Gram Stain - Final Bronchial Washings - Random Bronchial Washings Culture - Final Enterobacter cloacae - Imaging and Cardiology Chest x-ray: report reviewed, image reviewed Assessment and Plan (1) Hypertension Current Visit: Yes Status: Chronic Code(s): I10 - ESSENTIAL (PRIMARY) HYPERTENSION SNOMED Code(s): 90729415 (2) Hyperlipidemia Current Visit: Yes Status: Chronic Code(s): E78.5 - HYPERLIPIDEMIA, UNSPECIFIED SNOMED Code(s): 49983524 (3) Diabetes mellitus Current Visit: Yes Status: Chronic Code(s): E11.9 - TYPE 2 DIABETES MELLITUS WITHOUT COMPLICATIONS SNOMED Code(s): 88100590 (4) Previous myocardial infarction older than 8 weeks Current Visit: No Status: Resolved Code(s): I25.2 - OLD MYOCARDIAL INFARCTION SNOMED Code(s): 9645452 (5) History of heart artery stent Current Visit: Yes Status: Chronic Code(s): Z95.5 - PRESENCE OF CORONARY ANGIOPLASTY IMPLANT AND GRAFT SNOMED Code(s): 433134721 (6) Tobacco dependence in remission Current Visit: No Status: Resolved Code(s): F17.201 - NICOTINE DEPENDENCE, UNSPECIFIED, IN REMISSION SNOMED Code(s): 337789189 (7) Family history of premature coronary artery disease Current Visit: Yes Status: Chronic Code(s): Z82.49 - FAMILY HX OF ISCHEM HEART DIS AND OTH DIS OF THE CIRC SYS SNOMED Code(s): 431491223 (8) History of right breast cancer Current Visit: No Status: Resolved Code(s): Z85.3 - PERSONAL HISTORY OF MALIGNANT NEOPLASM OF BREAST SNOMED Code(s): 029683559 (9) Non-STEMI (non-ST elevated myocardial infarction) Current Visit: Yes Status: Acute Code(s): I21.4 - NON-ST ELEVATION (NSTEMI) MYOCARDIAL INFARCTION SNOMED Code(s): 000093424 (10) Morbid obesity with BMI of 40.0-44.9, adult Current Visit: Yes Status: Chronic Code(s): E66.01 - MORBID (SEVERE) OBESITY DUE TO EXCESS CALORIES; Z68.41 - BODY MASS INDEX (BMI) 40.0-44.9, ADULT SNOMED Code(s): 943130067 Plan: 1. Continue aspirin, statin, Plavix, beta doretha. Will increase beta doretha as tolerated. Continue IV Primacor until extubated. 2. Continue amiodarone for A. fib prophylaxis. 3. Ventilator management, antibiotics per pulmonology. 4. GI/DVT prophylaxis. 5. Will monitor daily labs and x-rays. 6. Insulin drip/diabetic management per primary care service. 7. Keep Lea for strict accurate I and O's. 8. Continue to feedings for maximal nutrition per dietary recommendations. 9. More recommendations to follow. Time with Patient: Greater than 30
[2017-06-08 11:03] LABS: Glucose,Whole Blood 126 mg/dL (75-99)
--- NOTE | 2017-06-08 11:42 | P.PN ---
Subjective Patient still remains intubated. Weaning process is ongoing she is status post coronary artery bypass grafting. She had multivessel coronary artery disease and an episode of ventricular fibrillation in house. Pulse rate in the 80s, blood pressure 141/68 mmHg respirations increased, tachypneic The weaning process is ongoing Breath sounds are reduced bilaterally Heart sounds are distant Abdomen is soft nontender Impression Coronary artery disease status post coronary artery bypass grafting VF arrest with underlying ischemia and triple vessel coronary artery disease Patient remains intubated, acute respiratory failure Morbid obesity Plan Continue ICU care postoperatively and medical treatment for CAD Objective - Vital Signs Vital signs: Vital Signs Temp 98.9 F 06/08/17 04:00 Pulse 86 06/08/17 11:39 Resp 24 06/08/17 11:00 BP 141/68 06/08/17 11:00 Pulse Ox 97 06/08/17 11:00 Intake & Output 06/07/17 06/08/17 06/08/17 18:59 06:59 18:59 Intake Total 6608.549 4629.564 218.8 Output Total 1940 1475 1175 Balance -514.534 540.564 -956.2 Weight 129.3 kg 125.9 kg Intake: IV 256 350.6 110.8 0.9 80 0.9 for pressure 36 39 12 Lactated Ringers 1,000 ml 220 260 @ 20 mls/hr IV .Q24H [facility] Rx#:[id number] primacor 51.6 18.8 Intake, IV Titration 197.466 392.964 0 Amount Insulin Regular 100 unit 84.733 101.242 0 In Sodium Chloride 0.9% 100 ml @ Per Protocol IV .Q0M [facility] Rx#:[id number] Propofol 1,000 mg In 112.733 291.722 Empty Bag 1 bag @ Titrate IV .Q0M [facility] Rx#: [id number] Oral 222 Tube Feeding 750 972 108 Blood Product 0 Rc As-1 Unit 0 [id number] Other 300 Output: Chest Tube Drainage 205 110 left pleural 205 110 Drainage 215 435 115 Right Lower Medial Calf 215 435 115 Urine 0357 235 9649 Other: Voiding Method Indwelling Catheter Indwelling Catheter Indwelling Catheter ABP, PAP, CO, CI - Last Documented Arterial Blood Pressure 149/66 Pulmonary Artery Pressure 33/21 Cardiac Output 5 Cardiac Index 2.4 - Labs CBC & Chem 7: 06/08/17 04:30 06/08/17 04:30 Labs: Abnormal Lab Results - Last 24 Hours (Table) 06/07/17 06/07/17 06/07/17 Range/Units 12:52 14:15 15:06 RBC (3.80-5.40) m/uL Hgb (11.4-16.0) gm/dL Hct (34.0-46.0) % RDW (11.5-15.5) % Plt Count (150-450) k/uL Lymphocytes # (1.0-4.8) k/uL ABG pH (7.35-7.45) ABG pO2 (83-108) mmHg ABG HCO3 (21-25) mmol/L ABG Total CO2 (19-24) mmol/L Chloride (98-107) mmol/L BUN (7-17) mg/dL Glucose (74-99) mg/dL POC Glucose (mg/dL) 114 H 115 H 116 H (75-99) mg/dL Magnesium (1.6-2.3) mg/dL AST (14-36) U/L ALT (9-52) U/L Total Protein (6.3-8.2) g/dL Albumin (3.5-5.0) g/dL 06/07/17 06/07/17 06/07/17 Range/Units 17:01 18:07 20:12 RBC (3.80-5.40) m/uL Hgb (11.4-16.0) gm/dL Hct (34.0-46.0) % RDW (11.5-15.5) % Plt Count (150-450) k/uL Lymphocytes # (1.0-4.8) k/uL ABG pH (7.35-7.45) ABG pO2 (83-108) mmHg ABG HCO3 (21-25) mmol/L ABG Total CO2 (19-24) mmol/L Chloride (98-107) mmol/L BUN (7-17) mg/dL Glucose (74-99) mg/dL POC Glucose (mg/dL) 117 H 115 H 104 H (75-99) mg/dL Magnesium (1.6-2.3) mg/dL AST (14-36) U/L ALT (9-52) U/L Total Protein (6.3-8.2) g/dL Albumin (3.5-5.0) g/dL 06/07/17 06/07/17 06/08/17 Range/Units 21:00 22:00 02:08 RBC (3.80-5.40) m/uL Hgb (11.4-16.0) gm/dL Hct (34.0-46.0) % RDW (11.5-15.5) % Plt Count (150-450) k/uL Lymphocytes # (1.0-4.8) k/uL ABG pH (7.35-7.45) ABG pO2 (83-108) mmHg ABG HCO3 (21-25) mmol/L ABG Total CO2 (19-24) mmol/L Chloride (98-107) mmol/L BUN (7-17) mg/dL Glucose (74-99) mg/dL POC Glucose (mg/dL) 107 H 126 H 110 H (75-99) mg/dL Magnesium (1.6-2.3) mg/dL AST (14-36) U/L ALT (9-52) U/L Total Protein (6.3-8.2) g/dL Albumin (3.5-5.0) g/dL 06/08/17 06/08/17 06/08/17 Range/Units 04:23 04:30 04:30 RBC 2.81 L (3.80-5.40) m/uL Hgb 7.7 L (11.4-16.0) gm/dL Hct 24.8 L (34.0-46.0) % RDW 15.6 H (11.5-15.5) % Plt Count 128 L (150-450) k/uL Lymphocytes # 0.9 L (1.0-4.8) k/uL ABG pH (7.35-7.45) ABG pO2 (83-108) mmHg ABG HCO3 (21-25) mmol/L ABG Total CO2 (19-24) mmol/L Chloride 109 H (98-107) mmol/L BUN 37 H (7-17) mg/dL Glucose 104 H (74-99) mg/dL POC Glucose (mg/dL) 105 H (75-99) mg/dL Magnesium 2.5 H (1.6-2.3) mg/dL AST 43 H (14-36) U/L ALT 87 H (9-52) U/L Total Protein 5.0 L (6.3-8.2) g/dL Albumin 2.6 L (3.5-5.0) g/dL 06/08/17 06/08/17 06/08/17 Range/Units 06:03 07:10 09:01 RBC (3.80-5.40) m/uL Hgb (11.4-16.0) gm/dL Hct (34.0-46.0) % RDW (11.5-15.5) % Plt Count (150-450) k/uL Lymphocytes # (1.0-4.8) k/uL ABG pH 7.47 H (7.35-7.45) ABG pO2 79 L (83-108) mmHg ABG HCO3 27 H (21-25) mmol/L ABG Total CO2 28 H (19-24) mmol/L Chloride (98-107) mmol/L BUN (7-17) mg/dL Glucose (74-99) mg/dL POC Glucose (mg/dL) 111 H 131 H (75-99) mg/dL Magnesium (1.6-2.3) mg/dL AST (14-36) U/L ALT (9-52) U/L Total Protein (6.3-8.2) g/dL Albumin (3.5-5.0) g/dL 06/08/17 06/08/17 Range/Units 10:10 11:02 RBC (3.80-5.40) m/uL Hgb (11.4-16.0) gm/dL Hct (34.0-46.0) % RDW (11.5-15.5) % Plt Count (150-450) k/uL Lymphocytes # (1.0-4.8) k/uL ABG pH (7.35-7.45) ABG pO2 (83-108) mmHg ABG HCO3 (21-25) mmol/L ABG Total CO2 (19-24) mmol/L Chloride (98-107) mmol/L BUN (7-17) mg/dL Glucose (74-99) mg/dL POC Glucose (mg/dL) 121 H 126 H (75-99) mg/dL Magnesium (1.6-2.3) mg/dL AST (14-36) U/L ALT (9-52) U/L Total Protein (6.3-8.2) g/dL Albumin (3.5-5.0) g/dL Microbiology - Last 24 Hours (Table) 06/05/17 10:18 Gram Stain - Final Bronchial Washings - Random Bronchial Washings Culture - Final Enterobacter cloacae
[2017-06-08 13:09] LABS: Glucose,Whole Blood 143 mg/dL (75-99)
--- NOTE | 2017-06-08 13:33 | P.PN ---
Subjective Progress Note Date: 06/08/17 Principal diagnosis: Acute cardiac arrest, ventricular fibrillation, status post CPR. On today's evaluation of 05/30/2017 the patient is being seen in follow-up. The patient is resting comfortably in bed. Noted the patient was seen yesterday for a preoperative cardiac clearance. I had a lengthy discussion with her. The patient has morbid obesity, COPD and addition to severe obstructive sleep apnea. The patient with kidney and increased risk of developing postoperative pulmonary complications should thoracotomy and bypass surgery is done. Nevertheless, weighing the risks and benefits, the patient should be able to undertake these risks. For now the patient IV heparin. Her troponins came back positive at 0.038, 0.035 and 0.0 26. The patient's family chest pain for now. CV surgery is on the case. The patient is off Plavix. The patient is being considered for coronary artery bypass surgery next week. She is hemodynamically stable at this point. No cough sputum production or chest that is so wheezing. She tells me that her BiPAP machine was taken away from her as the patient did not demonstrate adequate data as she was hospitalized for pneumonia. Her pneumonia essentially cleared showed no parenchymal lung abnormalities. There is no mediastinal lymphadenopathy. There was a large right axillary lesion measuring 6.5 x 4.8 cm in size ejection of a cyst with overlying scar. Her was a small right-sided pleural effusion with some mild atelectatic changes and mild diffuse bronchial wall thickening without consolidation, and there is a l small hiatal hernia. A 2.4 cm left of the nodule was also seen which is a adenoma and the patient has compression deformity of the level of T11. On 05/31/2017 the patient is free of any chest pain. The patient remains on IV heparin. She'll be kept in the hospital awaiting her surgery. The patient had a blood gases on room air and she demonstrated pH of 7.46 with a pCO2 of 40 and pO2 of 68 and this was done on room air. The cyst in her right axilla was noted. Apparently this was drained on multiple occasions by general surgery and she tells that there is no evidence of any malignancy found on previous drainage procedures. I discussed the case with interventional radiology. We found that there was no need to repeated drainages long as the patient has been drained in the past and the structures of the cystic rather than malignant or solids. On 06/01/2017, the patient is stable and the patient has no new complaints. Simply of any chest pain. She is ambulating. 95% pulse ox on 3 selection by nasal cannula. She is afebrile. No cardiac arrhythmias. No other complaints otherwise for now. Tentative plan is to proceed with surgery next week. On 06/02/2017, the patient is being seen him follow-up. Currently she is interested intensive care unit intubated on a mechanical ventilator. The events that occurred overnight was noted. The patient acutely went into V. fib at around 10:00 and the patient received CPR and defibrillation. The exact downtime was less than 5 minutes. The patient received a total of 2 defibrillation 3 rounds of epinephrine. There was return of spontaneous circulation. The patient was intubated and brought to the intensive care unit. This morning she is sedated With Diprivan and currently Diprivan is running at 50 mics. I was told that the patient was able to follow commands following her cardiac arrest and neurologically seems to be intact despite his underlying cardiac arrest. The patient is on no pressors. Currently she is on assist control mode of ventilation at the rate of 16, tidal volume of 450, FiO2 of 60% and a PEEP of 5. The patient's pH is at 7.39 with a pCO2 of 41 and pO2 of 117. Chest x-ray shows adequate positioning of the ET tube. The patient also has a orogastric tube in place. She is nothing by mouth for now. She has adequate pulses in all 4 extremities. She is calm and comfortable. She is producing urine output in the order of 100 mL an hour. No further cardiac arrhythmias have been noted. The patient was given amiodarone bolus 10 mg and currently she is on a maintenance amiodarone of 0.5 mg/m. Rest of the blood pressure medications are on hold. Beta doretha was given this morning and the patient received Lopressor 25 mg orally. The case was discussed with cardiothoracic surgery. It seems that the patient will need emergent coronary artery bypass surgery and the patient will be taken to the operating room today. On 06/03/2017 I'm seeing this patient for a follow-up. The patient underwent four-vessel bypass surgery. This was done in the afternoon yesterday and the patient arrived back to the intensive care unit around 11 PM. Preoperatively, there has been difficulties with oxygenation and metabolic acidosis. Overall the patient received a total of 6 bicarb amps and the patient arrived to the intensive care unit quite stable on 7 mics of norepinephrine infusion and 1 g of epinephrine infusion.. She was producing adequate amount of urine output and she was hemodynamically stable. Necessary vent changes were done overnight and this morning the patient is on a assist-control mode at the rate of 18, tidal volume of 550, FiO2 has been weaned down to 60% and the current PEEP is at 10. Most recent blood gases showed a pH of 7.46 with a pCO2 of 38 and pO2 of 84 and this was done and FiO2 of 80%. Chest x-ray shows adequate expansion of both lungs. Lung volumes are small. ET tube is in a good location. The patient has 2 chest tubes 1 mediastinal and 1 pleural. No evidence of any pneumothorax. NG tube is in a good location. This morning, the patient is sedated with Diprivan and she is calm and comfortable. We have noted some increased activity in the right upper extremity compared to the left. Note that she is a post cardiac arrest. Mental status was checked preoperatively and she was following some simple commands. In any rate, she is still on Diprivan and Diprivan will be continued as long as the patient is not ready to wean yet. This morning she is on 2 mics of norepinephrine infusion. Cardiac index is at 2.4. Her PA pressures around 35/26, and the chest tube output has been 170 mL from the left pleural and 50s on the mediastinal. No evidence of any air leak. We will lobe and this morning is at 8.7. Correlation profile shows an INR of 1.3 with a PTT of 68. IV heparin was discontinued. Patient was evaluated today on 06/04/2017, remains on mechanical ventilation, her ventilator settings are FiO2 of 65%, tidal volume of 500 assist control rate of 18 and PEEP of 8. ABG showed a pO2 of 62 pCO2 of 34 pH of 7.48. Hence the FiO2 was increased from 60% to 65% and PEEP was increased to 8 as above. Rest of the labs were reviewed the seem to be relatively unremarkable. Chest x- ray showed what seems to be a left lower lobe consolidation. And atelectasis. Hemoglobin is 7.7. Her last echocardiogram showed good LV function. Patient remains on inotropes, but minimal doses. Remains on amiodarone, and she is also on insulin. Chest x-ray showed minimal pulmonary vascular congestion, and atelectasis mostly at the left base. Patient was reevaluated today on 06/05/2017, presently on 60% FiO2, assist control rate was 18, volume of 500, and PEEP was increased to 10. ABG showed a pO2 of 73 pCO2 of 33 pH of 7.48. All labs were reviewed, renal functioning is basically about the same in the last 3 days a 1.20 creatinine, and BUN is 28. Chest x-ray was also reviewed and there is evidence of bibasilar atelectasis, mostly left lower lobe collapse was noted, and the patient underwent bronchoscopy after visualizing her chest x-ray today. PEEP was increased to 10. And the patient was started on empiric antibiotics in the form of Levaquin. Remains on 1 mcg/m of norepinephrine, patient is fully sedated on propofol, however we plan to place the patient on a sedation holiday, and hopefully assess for weaning parameters today. If possible. Patient is clearly not ready for weaning and extubation at this point. Cardiac-munguia she has intermittent episodes of atrial fibrillation, had 1 episode early this morning, presently in normal sinus rhythm. Patient was reevaluated on 06/06/2017, remains on mechanical ventilation, I was able to cut down her FiO2 to 50%, but she remains on a PEEP of 10. Asked x-ray continues to show bilateral opacities at the bases, with more atelectasis is noted in the left lower lobe. All her labs were reviewed, patient was taken off propofol, however the patient remained extremely lethargic, and we did not get to the point where the patient could follow any instructions. Could not even consider a spontaneous breathing trial. At the same time the patient remains on relatively high PEEP, and her ABG remains a very marginal with pO2 in the low 70s. Patient was reevaluated today on 06/07/2017, remains on the same ventilator settings, presently on a pO2 of 50%, and PEEP of 10. ABG was noted, and it is within reasonable range, improved compared to baseline. However not much room to cut down the PEEP any further. Chest x-ray is showing some improvement in her bibasilar atelectasis. Lavage cultures are showing gram-negative bacilli, final identification is pending, patient remains on Levaquin in the meantime. Patient received a unit of packed RBCs today for low hemoglobin of 6.9, and we' ll plan to discontinue sedation, and hopefully assess mental status, and possibly even proceed with spontaneous breathing trials if the patient's mental status allows. Chest x-ray labs and ABG were all reviewed. Reevaluated today on 06/08/2017, patient is postoperative day #6, urgent coronary bypass grafting 4, postoperative day #2 bronchoscopy and bronchoalveolar lavage of the left lower lobe which came back positive for Enterobacter cloacae. Patient remains on mechanical ventilation, her vent settings are tidal volume of 500 assist control rate of 18 FiO2 of 50% and PEEP of 10. ABG showed a pO2 of 79 pCO2 of 37 pH of 7.47. Her peak airway pressure was noted but the plateau pressure is in the range of 22. Compliance is in the range of 40. CBC showed a hemoglobin of 7.7 otherwise the labs are unremarkable platelets are 128. Basic metabolic profile is relatively normal and renal profile is relatively normal. Patient is hemodynamically stable, however the main issue at this point is her mental status, and I felt it would be best to send the patient down for a CT of the brain. In spite of holding propofol for many hours yesterday, patient could not arouse enough to follow any instructions whatsoever. She has some conjugate gaze of the left eye, and does not seem to respond to any stimuli. Pupils are definitely reactive to light. Objective - Vital Signs Vital signs: Vital Signs Temp 99.7 F H 06/08/17 12:00 Pulse 87 06/08/17 13:00 Resp 32 H 06/08/17 13:00 BP 134/69 06/08/17 13:00 Pulse Ox 97 06/08/17 13:00 Intake & Output 06/07/17 06/08/17 06/08/17 18:59 06:59 18:59 Intake Total 1239.698 1538.564 382.2 Output Total 1940 1475 1393 Balance -514.534 540.564 -1010.8 Weight 129.3 kg 125.9 kg Intake: IV 256 350.6 166.2 0.9 120 0.9 for pressure 36 39 18 Lactated Ringers 1,000 ml 220 260 @ 20 mls/hr IV .Q24H [facility] Rx#:[id number] primacor 51.6 28.2 Intake, IV Titration 197.466 392.964 0 Amount Insulin Regular 100 unit 84.733 101.242 0 In Sodium Chloride 0.9% 100 ml @ Per Protocol IV .Q0M [facility] Rx#:[id number] Propofol 1,000 mg In 112.733 291.722 Empty Bag 1 bag @ Titrate IV .Q0M [facility] Rx#: [id number] Oral 222 Tube Feeding 750 972 216 Blood Product 0 Rc As-1 Unit 0 [id number] Other 300 Output: Chest Tube Drainage 205 110 left pleural 205 110 Drainage 215 435 115 Right Lower Medial Calf 215 435 115 Urine 1084 897 2998 Other: Voiding Method Indwelling Catheter Indwelling Catheter Indwelling Catheter ABP, PAP, CO, CI - Last Documented Arterial Blood Pressure 148/67 Pulmonary Artery Pressure 33/21 Cardiac Output 5 Cardiac Index 2.4 - Exam - Exam Physical examination revealed a 66-year-old female, on mechanical ventilation, off propofol at present, but the patient is not showing any signs of arousal yet. - Constitutional General appearance: Does not seem to be in any form of distress., On mechanical ventilation. - EENT Eyes: PERRLA, EOMI. right eye is showing some medial gaze. Pupils are both reactive to light. - Neck Details: Neck is supple, no neck masses, no thyromegaly, lives in the neck were noted endotracheal tube is intact. - Respiratory Details: Lung sounds diminished breath sound bilaterally, no crackles or rhonchi or wheezes, chest tubes noted in place. Sternum seems to be stable. - Cardiovascular Details: Regular rhythm and rate. S1 and S2 present, negative for S3, gallop or murmur. Sternum is stable. - Gastrointestinal Gastrointestinal Comment(s): Soft nontender no megaly no rebound no guarding, positive bowel sounds. - Genitourinary Genitourinary Comment(s): Lea catheter noted. - Integumentary Integumentary Comment(s): Skin is warm and dry. No cyanosis or clubbing. Both lower extremities are dressed with compression stockings and Venodyne boots. - Neurologic Neurologic Comment(s): No response to any painful stimuli or verbal stimuli. Patient opens eyes only. - Musculoskeletal Musculoskeletal: No purposeful movement and no response to pain. - Labs CBC & Chem 7: 06/08/17 04:30 06/08/17 04:30 Labs: Abnormal Lab Results - Last 24 Hours (Table) 06/07/17 06/07/17 06/07/17 Range/Units 14:15 15:06 17:01 RBC (3.80-5.40) m/uL Hgb (11.4-16.0) gm/dL Hct (34.0-46.0) % RDW (11.5-15.5) % Plt Count (150-450) k/uL Lymphocytes # (1.0-4.8) k/uL ABG pH (7.35-7.45) ABG pO2 (83-108) mmHg ABG HCO3 (21-25) mmol/L ABG Total CO2 (19-24) mmol/L Chloride (98-107) mmol/L BUN (7-17) mg/dL Glucose (74-99) mg/dL POC Glucose (mg/dL) 115 H 116 H 117 H (75-99) mg/dL Magnesium (1.6-2.3) mg/dL AST (14-36) U/L ALT (9-52) U/L Total Protein (6.3-8.2) g/dL Albumin (3.5-5.0) g/dL 06/07/17 06/07/17 06/07/17 Range/Units 18:07 20:12 21:00 RBC (3.80-5.40) m/uL Hgb (11.4-16.0) gm/dL Hct (34.0-46.0) % RDW (11.5-15.5) % Plt Count (150-450) k/uL Lymphocytes # (1.0-4.8) k/uL ABG pH (7.35-7.45) ABG pO2 (83-108) mmHg ABG HCO3 (21-25) mmol/L ABG Total CO2 (19-24) mmol/L Chloride (98-107) mmol/L BUN (7-17) mg/dL Glucose (74-99) mg/dL POC Glucose (mg/dL) 115 H 104 H 107 H (75-99) mg/dL Magnesium (1.6-2.3) mg/dL AST (14-36) U/L ALT (9-52) U/L Total Protein (6.3-8.2) g/dL Albumin (3.5-5.0) g/dL 06/07/17 06/08/17 06/08/17 Range/Units 22:00 02:08 04:23 RBC (3.80-5.40) m/uL Hgb (11.4-16.0) gm/dL Hct (34.0-46.0) % RDW (11.5-15.5) % Plt Count (150-450) k/uL Lymphocytes # (1.0-4.8) k/uL ABG pH (7.35-7.45) ABG pO2 (83-108) mmHg ABG HCO3 (21-25) mmol/L ABG Total CO2 (19-24) mmol/L Chloride (98-107) mmol/L BUN (7-17) mg/dL Glucose (74-99) mg/dL POC Glucose (mg/dL) 126 H 110 H 105 H (75-99) mg/dL Magnesium (1.6-2.3) mg/dL AST (14-36) U/L ALT (9-52) U/L Total Protein (6.3-8.2) g/dL Albumin (3.5-5.0) g/dL 06/08/17 06/08/17 06/08/17 Range/Units 04:30 04:30 06:03 RBC 2.81 L (3.80-5.40) m/uL Hgb 7.7 L (11.4-16.0) gm/dL Hct 24.8 L (34.0-46.0) % RDW 15.6 H (11.5-15.5) % Plt Count 128 L (150-450) k/uL Lymphocytes # 0.9 L (1.0-4.8) k/uL ABG pH (7.35-7.45) ABG pO2 (83-108) mmHg ABG HCO3 (21-25) mmol/L ABG Total CO2 (19-24) mmol/L Chloride 109 H (98-107) mmol/L BUN 37 H (7-17) mg/dL Glucose 104 H (74-99) mg/dL POC Glucose (mg/dL) 111 H (75-99) mg/dL Magnesium 2.5 H (1.6-2.3) mg/dL AST 43 H (14-36) U/L ALT 87 H (9-52) U/L Total Protein 5.0 L (6.3-8.2) g/dL Albumin 2.6 L (3.5-5.0) g/dL 06/08/17 06/08/17 06/08/17 Range/Units 07:10 09:01 10:10 RBC (3.80-5.40) m/uL Hgb (11.4-16.0) gm/dL Hct (34.0-46.0) % RDW (11.5-15.5) % Plt Count (150-450) k/uL Lymphocytes # (1.0-4.8) k/uL ABG pH 7.47 H (7.35-7.45) ABG pO2 79 L (83-108) mmHg ABG HCO3 27 H (21-25) mmol/L ABG Total CO2 28 H (19-24) mmol/L Chloride (98-107) mmol/L BUN (7-17) mg/dL Glucose (74-99) mg/dL POC Glucose (mg/dL) 131 H 121 H (75-99) mg/dL Magnesium (1.6-2.3) mg/dL AST (14-36) U/L ALT (9-52) U/L Total Protein (6.3-8.2) g/dL Albumin (3.5-5.0) g/dL 06/08/17 06/08/17 Range/Units 11:02 13:06 RBC (3.80-5.40) m/uL Hgb (11.4-16.0) gm/dL Hct (34.0-46.0) % RDW (11.5-15.5) % Plt Count (150-450) k/uL Lymphocytes # (1.0-4.8) k/uL ABG pH (7.35-7.45) ABG pO2 (83-108) mmHg ABG HCO3 (21-25) mmol/L ABG Total CO2 (19-24) mmol/L Chloride (98-107) mmol/L BUN (7-17) mg/dL Glucose (74-99) mg/dL POC Glucose (mg/dL) 126 H 143 H (75-99) mg/dL Magnesium (1.6-2.3) mg/dL AST (14-36) U/L ALT (9-52) U/L Total Protein (6.3-8.2) g/dL Albumin (3.5-5.0) g/dL Microbiology - Last 24 Hours (Table) 06/05/17 10:18 Gram Stain - Final Bronchial Washings - Random Bronchial Washings Culture - Final Enterobacter cloacae Assessment and Plan Assessment: 1 acute hypoxic respiratory failure requiring intubation secondary to acute cardiac arrest, acute v fibrillation, resuscitated successfully, defibrillated and the patient is currently intubated on a mechanical ventilator. The acute episode of V. fib was probably ischemic in nature. 2 Symptomatic multivessel coronary artery disease involving the proximal and mid LAD, RCA and diffuse disease in the circumflex coronary artery, post DC, post four-vessel bypass surgery and the patient is postop day #6. Adequate cardiac index and output. Hemodynamically stable. Not ready to wean yet mostly because of her overall neurological status. 3 . COPD, with a baseline FEV1 of 76% of predicted on outpatient basis. 4. Obstructive sleep apnea, with baseline AHI of 80, patient was prescribed BiPAP therapy at pressures 21/17 cm of water. 5. Obesity, 6. Coronary artery disease, with previous stenting 7. Recent hospitalization for right lung pneumonia at [facility] in March 2017. Patient had a thoracentesis for pleural effusion during that admission 8. Hyperlipidemia and hypertension hypertension 9. History of right breast cancer with lumpectomy/lymph node removal and radiation 10. GERD/reflux 11 a large cystic structure within the right axilla. Could be a recurrent breast cancer although this is a remote possibility. This has been addressed by many general surgeons out of town, and by Dr. trotter at one point. 12 diabetes mellitus, currently on insulin drip for blood sugar control 13 anemia, hemoglobin is at 7.7 14 left lower lobe pneumonia, acute, secondary to Enterobacter cloacae, hospital acquired. Patient had her left lower lobe abnormality even from day one she was on mechanical ventilation. Hence it is not ventilator associated pneumonia. Recommendation: Continue present ventilatory support, continue to hold propofol and addressed mental status, consider neurological evaluation and CT of the brain. Prognosis remains guarded, patient remains critically ill, continue hemodynamic support, nutritional support, GI and DVT prophylaxis, critical care time is 35 minutes. Time with Patient: Greater than 30
[2017-06-08 13:57] LABS: Glucose,Whole Blood 127 mg/dL (75-99)
--- NOTE | 2017-06-08 14:50 | CT ---
EXAMINATION TYPE: CT brain wo con DATE OF EXAM: 06/08/2017 COMPARISON: NONE HISTORY: Per patient RN unable to recover from sedative state CT DLP: 1144.7 mGycm Automated exposure control for dose reduction was used. TECHNIQUE: CT scan of the head is performed without contrast. FINDINGS: There is no acute intracranial hemorrhage or midline shift identified. There is diffuse v entricular and sulcal prominence consistent with diffuse age-related cerebral atrophy. There is low- attenuation in the periventricular white matter consistent with chronic small vessel ischemic change. Old appearing lacunar injuries are seen of the right external capsule exam lentiform nucleus. Old appearing lacunar injury is also seen within the right frontal lobe in the subcortical white matter o n series 6 image 36. The globes are intact. Mild mucosal thickening is seen within the maxillary sinu ses, moderate within the ethmoid sinuses, mild within the frontal sinuses, and severe within the sphe noid sinuses. Small amount of fluid is also seen within the mastoid air cells bilaterally. IMPRESSION: 1. No acute intracranial hemorrhage or midline shift. 2. Multiple old appearing lacunar injuries within the right external capsule, subcortical white matte r of the right frontal lobe, and lentiform nucleus. 3. Diffuse age-related cerebral atrophy and nonspecific white matter change, most commonly on the bas is of chronic microangiopathy. 4. Moderate paranasal sinus disease. 5. Small amount of fluid within the bilateral mastoid air cells, which may clinically correlate with mastoiditis. Correlate for point tenderness.
[2017-06-08 15:01] LABS: Glucose,Whole Blood 120 mg/dL (75-99)
[2017-06-08 15:55] LABS: Glucose,Whole Blood 98 mg/dL (75-99)
[2017-06-08 17:21] LABS: Glucose,Whole Blood 146 mg/dL (75-99)
--- NOTE | 2017-06-08 17:37 | PN ---
PROGRESS NOTE DATE OF SERVICE: 06/08/2017. PRESENTING COMPLAINT: Intubated. INTERVAL HISTORY: Patient with known coronary artery disease presented with acute [place] and cardiac arrest followed by ventricular fibrillation followed by 4-vessel coronary artery bypass. The patient remains on the ventilator. Has not been able to wean. The patient had a bout of atrial fibrillation. He has been in sinus rhythm. FiO2 is 50 with PEEP of 10. Still having moderate secretions through the tracheostomy tube. The patient had a bronchoscopy growing Enterobacter cloacae, for which IV meropenem has been started. Telemetry shows sinus rhythm. Patient's drips include IV Primacor, Diprivan, insulin. CT scan of brain was ordered because of patient not responding much per Dr. Waddell. REVIEW OF SYSTEMS: Patient is intubated. CURRENT MEDICATIONS: Reviewed, including IV meropenem and as above. PHYSICAL EXAMINATION: On examination, temperature 99.7, pulse 57, respiration 28, blood pressure 141/68, pulse ox 97%. GENERAL APPEARANCE: Lying in bed, intubated. EYES: Pupils equal. Conjunctivae normal. HEENT: External appearance of nose and ears normal. Oral cavity with endotracheal tube in place. NECK: JVD unable to assess. Mass not palpable. RESPIRATORY: Effort increased. LUNGS: Diminished breath sounds. CARDIOVASCULAR: Heart sounds muffled. No edema. ABDOMEN: Soft, nontender. Liver and spleen not palpable. CHEST: Left side chest pleural tube present. NEUROLOGICAL: Pupils are equal, reactive. Conjunctivae normal. INVESTIGATIONS: Accu-Cheks are noted. Blood gas showed a pH of 7.47, PO2 79 and bicarb of 27. Hemoglobin 7.7, white count 6.6, potassium 3.9. ASSESSMENT: 1. Four-vessel coronary artery bypass with a left pleural chest tube in place. Patient's mediastinal chest tube was taken out. 2. Coronary artery disease with prior history of stent; presented with acute myocardial infarction this admission and subsequently patient had cardiac arrest with ventricular fibrillation on the floor. 3. Morbid obesity; body mass index greater than 50. 4. Intermittent asthma. 5. Diabetes mellitus, type 2, chronically requiring insulin, currently on insulin drip. 6. Gastroesophageal reflux disease. 7. Hyperlipidemia. 8. Obstructive sleep apnea; using CPAP until recently. 9. Right mastectomy for cancer. 10.Right axillary lesion, being followed as an outpatient. 11.Bilateral nephrolithiasis, asymptomatic. 12.Left adrenal nodule, 2.5 cm. 13.Hypertensive heart disease. 14.Acute respiratory failure, on ventilator assistance. 15.Acute blood-loss anemia as expected from surgery, requiring blood transfusion. 16.Dilutional thrombocytopenia. 17.Hypoalbuminemia as an acute phase reactant. 18.Paroxysmal atrial fibrillation, now in sinus rhythm. 19.Pneumonia with cultures showing Enterobacter cloacae, for which patient is on meropenem. PLAN: Continue current medication and treatment plan. Patient is now on meropenem. CT scan of the brain did not show any acute event. Neurology was consulted. Continue current medication and treatment plan. Prognosis is guarded. MMODL / IJN: [id number] /
[2017-06-08 18:24] LABS: Potassium 3.8 mmol/L (3.5-5.1)
[2017-06-08 18:53] LABS: Glucose,Whole Blood 116 mg/dL (75-99)
[2017-06-08] MEDS ORDERED: POTASSIUM BICARBONATE/CIT AC 20 MEQ TABLET.EFF NG-TUBE SCH (19:00)
[2017-06-08 20:32] LABS: Glucose,Whole Blood 118 mg/dL (75-99)
[2017-06-08] MEDS: SENNOSIDES-DOCUSATE SODIUM 1 EACH TAB PO SCH (20:37)
[2017-06-09 00:08] LABS: Glucose,Whole Blood 111 mg/dL (75-99)
[2017-06-09] MEDS: HYDROcodone/APAP 5-325MG 1 EACH TAB PO PRN ×2 (00:28→11:54)
[2017-06-09] MEDS: IPRATROPIUM-ALBUTEROL 3 ML NEB INHALATION SCH ×6 (00:45→20:55)
[2017-06-09] MEDS: PROPOFOL 1,000 MG in EMPTY BAG 1 BAG IV SCH ×4 (01:40→21:09)
[2017-06-09 01:58] LABS: Glucose,Whole Blood 89 mg/dL (75-99)
[2017-06-09 03:54] LABS: Glucose,Whole Blood 77 mg/dL (75-99)
[2017-06-09 04:34] LABS: Basophils % (A) 1 %; Eosinophils # (A) 0.2 k/uL (0-0.7); Eosinophils % (A) 4 %; HCT 23.9 % (34.0-46.0); HGB 7.6 gm/dL (11.4-16.0); Hypochromasia Slight; Lymphocytes # (A) 0.9 k/uL (1.0-4.8); Lymphocytes % (A) 15 %; MCH 28.3 pg (25.0-35.0); MCHC 31.9 g/dL (31.0-37.0); MCV 88.7 fL (80.0-100.0); Mean Platelet Volume 9.3; Monocytes # (A) 0.2 k/uL (0-1.0); Monocytes % (A) 4 %; Neutrophils # (A) 4.5 k/uL (1.3-7.7); Neutrophils % (A) 74 %; Platelet Count 149 k/uL (150-450); Poikilocytosis Slight; RBC 2.69 m/uL (3.80-5.40); RDW 15.3 % (11.5-15.5); WBC 6.1 k/uL (3.8-10.6)
[2017-06-09 04:58] LABS: Albumin 2.5 g/dL (3.5-5.0); Calcium 8.3 mg/dL (8.4-10.2); Magnesium 2.5 mg/dL (1.6-2.3); Phosphorus 3.2 mg/dL (2.5-4.5); Potassium 3.7 mmol/L (3.5-5.1); Total Bilirubin 0.4 mg/dL (0.2-1.3)
[2017-06-09] MEDS ORDERED: POTASSIUM BICARBONATE/CIT AC 20 MEQ TABLET.EFF NG-TUBE SCH (06:00)
[2017-06-09 06:03] LABS: Glucose,Whole Blood 139 mg/dL (75-99)
[2017-06-09] MEDS: MILRINONE-D5W PMX 20 MG in DEXTROSE/WATER 1 100ML.BAG IV SCH (06:59)
--- NOTE | 2017-06-09 07:09 | XR ---
EXAMINATION TYPE: XR chest 1V portable DATE OF EXAM: 06/09/2017 HISTORY: post cardiac surgery. REFERENCE: Previous study dated 06/08/2017. FINDINGS: There has been a midline sternotomy. The patient's ET tube and NG tube remain in place, unchanged in appearance. The heart is enlarged. There is vascular congestion and mild edema. There are small, bilateral effusi ons. There is left basilar airspace disease. The overall appearance is not changed significantly from previous. IMPRESSION: NO SIGNIFICANT INTERVAL CHANGE IN THE APPEARANCE OF THE CHEST.
[2017-06-09 07:37] LABS: ABG PCO2 37 mmHg (35-45); ABG PO2 81 mmHg (83-108)
[2017-06-09 07:38] LABS: ABG HCO3 26 mmol/L (21-25); ABG TCO2 27 mmol/L (19-24)
[2017-06-09 07:46] LABS: Glucose,Whole Blood 139 mg/dL (75-99)
[2017-06-09] MEDS ORDERED: FUROSEMIDE 10 MG/ML 4 ML VIAL IV STA (08:16)
[2017-06-09] MEDS: METOPROLOL TARTRATE 25 MG TAB OG-TUBE SCH (08:22)
[2017-06-09] MEDS: CHLORHEXIDINE GLUCONATE 15 ML CUP MUCOUS MEM SCH ×2 (08:22→21:09)
[2017-06-09] MEDS: POTASSIUM BICARBONATE/CIT AC 20 MEQ TABLET.EFF PO SCH (08:23)
[2017-06-09] MEDS: AMIODARONE 200 MG TAB PO SCH ×2 (08:23→21:09)
[2017-06-09] MEDS: ATORVASTATIN 40 MG TAB PO SCH (08:23)
[2017-06-09] MEDS: ASCORBIC ACID 500 MG TAB PO SCH ×2 (08:23→21:09)
[2017-06-09] MEDS: ASPIRIN 81 MG PO SCH (08:23)
[2017-06-09] MEDS: FERROUS SULFATE 325 MG TAB PO SCH ×2 (08:23→16:46)
[2017-06-09] MEDS: HEPARIN SODIUM,PORCINE 5,000 UNIT/ML 1 ML VIAL SQ SCH ×3 (08:24→23:54)
[2017-06-09] MEDS: CLOPIDOGREL 75 MG TAB PO SCH (08:24)
[2017-06-09] MEDS: PANTOPRAZOLE 40 MG/10 ML VIAL IVP SCH (08:24)
[2017-06-09] MEDS: BUDESONIDE 1 MG/2 ML NEBU INHALATION SCH ×2 (08:35→20:55)
[2017-06-09 09:05] LABS: Glucose,Whole Blood 142 mg/dL (75-99)
[2017-06-09] MEDS: INSULIN REGULAR 100 UNIT in SODIUM CHLORIDE 0.9% 100 ML IV SCH ×2 (09:12→21:14)
--- NOTE | 2017-06-09 09:26 | P.PN ---
Subjective Progress Note Date: 06/09/17 Principal diagnosis: Diffuse severe calcific coronary artery disease. Non-ST elevation myocardial infarction. Preserved left ventricular function with preoperative ejection fraction of 50-55%. Mild mitral valve regurgitation. Status post ventricular fibrillation arrest. Previous medical history of hypertension, hyperlipidemia, insulin dependent diabetes mellitus with current hemoglobin A1c 9.4%, previous myocardial infarction with stent placement to the RCA in 2010, obesity, obstructive sleep apnea, recent pneumonia in March 2017, previous tobacco dependence with preoperative FEV1 77% of predicted and preoperative arterial blood gas on room air pH 7.46, pCO2 40, pO2 68, HCO3 28, right breast cancer with lumpectomy and radiation, and family history of premature coronary artery disease. POD #7 urgent coronary artery bypass grafting 4 using the left internal mammary artery to the left anterior descending artery, reverse saphenous vein graft from the aorta to the distal posterior descending artery, reverse saphenous vein graft from the aorta to the ramus intermedius artery, reverse saphenous vein graft from the aorta to the second diagonal artery. Endoscopic harvesting of the right greater saphenous vein. Intraoperative transesophageal echocardiogram and epi-aortic scanning. Intraoperative graft flow measurements using the [employer] system. Status post preoperative ventricular fibrillation arrest with successful resuscitation. Postoperative prolonged mechanical ventilation secondary to hemodynamic instability, an unexpected but potential outcome of surgery. Postoperative atrial fibrillation, an unexpected but potential outcome of surgery. POD #3 bronchoscopy per pulmonology, bronchial washings positive for Enterobacter cloacae Postoperative acute blood loss anemia, a potential expected outcome of surgery. Patient currently laying in bed in no acute distress on mechanical ventilation. Remains on Primacor. Patient had CT of the brain yesterday which didn't demonstrate any acute changes. Objective - Vital Signs Vital signs: Vital Signs Temp 99.1 F 06/09/17 08:00 Pulse 84 06/09/17 09:00 Resp 18 06/09/17 09:00 BP 104/57 06/09/17 04:00 Pulse Ox 97 06/09/17 09:00 Intake & Output 06/08/17 06/09/17 06/09/17 18:59 06:59 18:59 Intake Total 7216.005 0471.595 221.93 Output Total 1933 860 220 Balance -142.178 3417.595 1.93 Weight 124 kg Intake: IV 432.4 404.7 55.4 0.9 240 220 40 0.9 for pressure 36 33 6 Meropenem 1 gm In Sodium 100 100 Chloride 0.9% 100 ml @ 200 mls/hr IVPB Q8HR [facility] Rx#:[id number] primacor 56.4 51.7 9.4 Intake, IV Titration 188.425 353.895 4.53 Amount Insulin Regular 100 unit 88.425 47.667 In Sodium Chloride 0.9% 100 ml @ Per Protocol IV .Q0M [facility] Rx#:[id number] Milrinone-D5w Pmx 20 mg 6.228 In Dextrose/Water 1 100ml .bag @ Per Protocol IV . Q0M [facility] Rx#:[id number] Propofol 1,000 mg In 100 300 4.53 Empty Bag 1 bag @ Titrate IV .Q0M [facility] Rx#: [id number] Tube Feeding 486 864 162 Other 100 300 Output: Drainage 230 220 45 Right Lower Medial Calf 230 220 45 Urine 1703 640 175 Other: Voiding Method Indwelling Catheter Indwelling Catheter Indwelling Catheter ABP, PAP, CO, CI - Last Documented Arterial Blood Pressure 147/64 Pulmonary Artery Pressure 33/21 Cardiac Output 5 Cardiac Index 2.4 - Constitutional General appearance: Present: no acute distress, obese - Respiratory Details: Lungs sounds diminished, coarse bilaterally. Respirations even, nonlabored. Currently on mechanical ventilation, settings assist control mode, FiO2 50%, tidal volume 500, respiratory rate 18, PEEP 8. ABGs this morning 7.5/37/81/26/ 2.0/97% on 50% FiO2. 8.0 ET tube present, 23 at the lip. - Cardiovascular Details: S1, S2 present. Regular rate and rhythm, sinus rhythm on telemetry. Sternum stable. A/V epicardial pacemaker wires present, grounded. Palpable peripheral pulses bilaterally. Generalized edema present. Heart hugger, SCDs, antiembolism stockings in place. Left radial arterial line, left brachial PICC line present. - Gastrointestinal Gastrointestinal Comment(s): Abdomen soft, nontender, nondistended. Active bowel sounds 4 quadrants. OG tube present, tube feeding infusing at 54 mL/h with minimal residual per nursing. - Genitourinary Genitourinary Comment(s): Lea present draining clear, yellow urine. Output 50-80 mL/h. - Integumentary Integumentary Comment(s): Skin is warm and dry with evidence of good perfusion. - Neurologic Neurologic Comment(s): Currently sedated on propofol. Does open eyes, does not track or follow commands. - Allied health notes Allied health notes reviewed: nursing - Labs CBC & Chem 7: 06/09/17 04:00 06/09/17 04:00 Labs: Abnormal Lab Results - Last 24 Hours (Table) 06/07/17 06/08/17 06/08/17 Range/Units 06:05 10:10 11:02 RBC (3.80-5.40) m/uL Hgb (11.4-16.0) gm/dL Hct (34.0-46.0) % Plt Count (150-450) k/uL Lymphocytes # (1.0-4.8) k/uL ABG pH (7.35-7.45) ABG pO2 (83-108) mmHg ABG HCO3 (21-25) mmol/L ABG Total CO2 (19-24) mmol/L Sodium (137-145) mmol/L Chloride (98-107) mmol/L BUN (7-17) mg/dL Glucose (74-99) mg/dL POC Glucose (mg/dL) 121 H 126 H (75-99) mg/dL Calcium (8.4-10.2) mg/dL Magnesium (1.6-2.3) mg/dL ALT (9-52) U/L Total Protein (6.3-8.2) g/dL Albumin (3.5-5.0) g/dL Crossmatch See Detail 06/08/17 06/08/17 06/08/17 Range/Units 13:06 13:54 14:58 RBC (3.80-5.40) m/uL Hgb (11.4-16.0) gm/dL Hct (34.0-46.0) % Plt Count (150-450) k/uL Lymphocytes # (1.0-4.8) k/uL ABG pH (7.35-7.45) ABG pO2 (83-108) mmHg ABG HCO3 (21-25) mmol/L ABG Total CO2 (19-24) mmol/L Sodium (137-145) mmol/L Chloride (98-107) mmol/L BUN (7-17) mg/dL Glucose (74-99) mg/dL POC Glucose (mg/dL) 143 H 127 H 120 H (75-99) mg/dL Calcium (8.4-10.2) mg/dL Magnesium (1.6-2.3) mg/dL ALT (9-52) U/L Total Protein (6.3-8.2) g/dL Albumin (3.5-5.0) g/dL Crossmatch 06/08/17 06/08/17 06/08/17 Range/Units 17:19 17:50 18:52 RBC (3.80-5.40) m/uL Hgb (11.4-16.0) gm/dL Hct (34.0-46.0) % Plt Count (150-450) k/uL Lymphocytes # (1.0-4.8) k/uL ABG pH (7.35-7.45) ABG pO2 (83-108) mmHg ABG HCO3 (21-25) mmol/L ABG Total CO2 (19-24) mmol/L Sodium (137-145) mmol/L Chloride 108 H (98-107) mmol/L BUN (7-17) mg/dL Glucose (74-99) mg/dL POC Glucose (mg/dL) 146 H 116 H (75-99) mg/dL Calcium (8.4-10.2) mg/dL Magnesium (1.6-2.3) mg/dL ALT (9-52) U/L Total Protein (6.3-8.2) g/dL Albumin (3.5-5.0) g/dL Crossmatch 06/08/17 06/09/17 06/09/17 Range/Units 20:30 00:06 04:00 RBC (3.80-5.40) m/uL Hgb (11.4-16.0) gm/dL Hct (34.0-46.0) % Plt Count (150-450) k/uL Lymphocytes # (1.0-4.8) k/uL ABG pH (7.35-7.45) ABG pO2 (83-108) mmHg ABG HCO3 (21-25) mmol/L ABG Total CO2 (19-24) mmol/L Sodium 146 H (137-145) mmol/L Chloride 109 H (98-107) mmol/L BUN 34 H (7-17) mg/dL Glucose 71 L (74-99) mg/dL POC Glucose (mg/dL) 118 H 111 H (75-99) mg/dL Calcium 8.3 L (8.4-10.2) mg/dL Magnesium 2.5 H (1.6-2.3) mg/dL ALT 65 H (9-52) U/L Total Protein 5.0 L (6.3-8.2) g/dL Albumin 2.5 L (3.5-5.0) g/dL Crossmatch 06/09/17 06/09/17 06/09/17 Range/Units 04:00 06:01 07:25 RBC 2.69 L (3.80-5.40) m/uL Hgb 7.6 L (11.4-16.0) gm/dL Hct 23.9 L (34.0-46.0) % Plt Count 149 L (150-450) k/uL Lymphocytes # 0.9 L (1.0-4.8) k/uL ABG pH 7.50 H (7.35-7.45) ABG pO2 81 L (83-108) mmHg ABG HCO3 26 H (21-25) mmol/L ABG Total CO2 27 H (19-24) mmol/L Sodium (137-145) mmol/L Chloride (98-107) mmol/L BUN (7-17) mg/dL Glucose (74-99) mg/dL POC Glucose (mg/dL) 139 H (75-99) mg/dL Calcium (8.4-10.2) mg/dL Magnesium (1.6-2.3) mg/dL ALT (9-52) U/L Total Protein (6.3-8.2) g/dL Albumin (3.5-5.0) g/dL Crossmatch 06/09/17 06/09/17 Range/Units 07:45 09:02 RBC (3.80-5.40) m/uL Hgb (11.4-16.0) gm/dL Hct (34.0-46.0) % Plt Count (150-450) k/uL Lymphocytes # (1.0-4.8) k/uL ABG pH (7.35-7.45) ABG pO2 (83-108) mmHg ABG HCO3 (21-25) mmol/L ABG Total CO2 (19-24) mmol/L Sodium (137-145) mmol/L Chloride (98-107) mmol/L BUN (7-17) mg/dL Glucose (74-99) mg/dL POC Glucose (mg/dL) 139 H 142 H (75-99) mg/dL Calcium (8.4-10.2) mg/dL Magnesium (1.6-2.3) mg/dL ALT (9-52) U/L Total Protein (6.3-8.2) g/dL Albumin (3.5-5.0) g/dL Crossmatch - Imaging and Cardiology Chest x-ray: report reviewed, image reviewed Assessment and Plan (1) Hypertension Current Visit: Yes Status: Chronic Code(s): I10 - ESSENTIAL (PRIMARY) HYPERTENSION SNOMED Code(s): 66502760 (2) Hyperlipidemia Current Visit: Yes Status: Chronic Code(s): E78.5 - HYPERLIPIDEMIA, UNSPECIFIED SNOMED Code(s): 93462035 (3) Diabetes mellitus Current Visit: Yes Status: Chronic Code(s): E11.9 - TYPE 2 DIABETES MELLITUS WITHOUT COMPLICATIONS SNOMED Code(s): 60002345 (4) Previous myocardial infarction older than 8 weeks Current Visit: No Status: Resolved Code(s): I25.2 - OLD MYOCARDIAL INFARCTION SNOMED Code(s): 1668902 (5) History of heart artery stent Current Visit: Yes Status: Chronic Code(s): Z95.5 - PRESENCE OF CORONARY ANGIOPLASTY IMPLANT AND GRAFT SNOMED Code(s): 780464790 (6) Tobacco dependence in remission Current Visit: No Status: Resolved Code(s): F17.201 - NICOTINE DEPENDENCE, UNSPECIFIED, IN REMISSION SNOMED Code(s): 107713364 (7) Family history of premature coronary artery disease Current Visit: Yes Status: Chronic Code(s): Z82.49 - FAMILY HX OF ISCHEM HEART DIS AND OTH DIS OF THE CIRC SYS SNOMED Code(s): 750970447 (8) History of right breast cancer Current Visit: No Status: Resolved Code(s): Z85.3 - PERSONAL HISTORY OF MALIGNANT NEOPLASM OF BREAST SNOMED Code(s): 966604044 (9) Non-STEMI (non-ST elevated myocardial infarction) Current Visit: Yes Status: Acute Code(s): I21.4 - NON-ST ELEVATION (NSTEMI) MYOCARDIAL INFARCTION SNOMED Code(s): 163763930 (10) Morbid obesity with BMI of 40.0-44.9, adult Current Visit: Yes Status: Chronic Code(s): E66.01 - MORBID (SEVERE) OBESITY DUE TO EXCESS CALORIES; Z68.41 - BODY MASS INDEX (BMI) 40.0-44.9, ADULT SNOMED Code(s): 452587836 Plan: 1. Continue aspirin, statin, Plavix, beta doretha. Will increase beta doretha as tolerated. Continue IV Primacor until extubated. 2. Continue amiodarone for A. fib prophylaxis. 3. Ventilator management, antibiotics per pulmonology. 4. GI/DVT prophylaxis. 5. Will monitor daily labs and x-rays. 6. Insulin drip/diabetic management per primary care service. 7. Keep Lea for strict accurate I and O's. 8. Continue to feedings for maximal nutrition per dietary recommendations. 9. Will give 40 mg IV Lasix 1 today. 10. More recommendations to follow. Time with Patient: Greater than 30
[2017-06-09] MEDS: MEROPENEM 1 GM in SODIUM CHLORIDE 0.9% 100 ML IVPB SCH ×3 (09:37→23:54)
[2017-06-09 10:09] LABS: Glucose,Whole Blood 124 mg/dL (75-99)
[2017-06-09] MEDS ORDERED: LORazepam 2 MG/ML INJ IV PRN ×2 (10:32)
[2017-06-09 10:55] LABS: Glucose,Whole Blood 106 mg/dL (75-99)
[2017-06-09] MEDS: QUEtiapine 25 MG TAB PO SCH ×2 (11:57→21:09)
[2017-06-09 12:05] LABS: Glucose,Whole Blood 108 mg/dL (75-99)
[2017-06-09] MEDS ORDERED: METOPROLOL TARTRATE 25 MG TAB PO STA (12:27)
[2017-06-09 12:56] LABS: Glucose,Whole Blood 105 mg/dL (75-99)
--- NOTE | 2017-06-09 12:57 | P.PN ---
Subjective Progress Note Date: 06/09/17 Principal diagnosis: Acute cardiac arrest, ventricular fibrillation, status post CPR. On today's evaluation of 05/30/2017 the patient is being seen in follow-up. The patient is resting comfortably in bed. Noted the patient was seen yesterday for a preoperative cardiac clearance. I had a lengthy discussion with her. The patient has morbid obesity, COPD and addition to severe obstructive sleep apnea. The patient with kidney and increased risk of developing postoperative pulmonary complications should thoracotomy and bypass surgery is done. Nevertheless, weighing the risks and benefits, the patient should be able to undertake these risks. For now the patient IV heparin. Her troponins came back positive at 0.038, 0.035 and 0.0 26. The patient's family chest pain for now. CV surgery is on the case. The patient is off Plavix. The patient is being considered for coronary artery bypass surgery next week. She is hemodynamically stable at this point. No cough sputum production or chest that is so wheezing. She tells me that her BiPAP machine was taken away from her as the patient did not demonstrate adequate data as she was hospitalized for pneumonia. Her pneumonia essentially cleared showed no parenchymal lung abnormalities. There is no mediastinal lymphadenopathy. There was a large right axillary lesion measuring 6.5 x 4.8 cm in size ejection of a cyst with overlying scar. Her was a small right-sided pleural effusion with some mild atelectatic changes and mild diffuse bronchial wall thickening without consolidation, and there is a l small hiatal hernia. A 2.4 cm left of the nodule was also seen which is a adenoma and the patient has compression deformity of the level of T11. On 05/31/2017 the patient is free of any chest pain. The patient remains on IV heparin. She'll be kept in the hospital awaiting her surgery. The patient had a blood gases on room air and she demonstrated pH of 7.46 with a pCO2 of 40 and pO2 of 68 and this was done on room air. The cyst in her right axilla was noted. Apparently this was drained on multiple occasions by general surgery and she tells that there is no evidence of any malignancy found on previous drainage procedures. I discussed the case with interventional radiology. We found that there was no need to repeated drainages long as the patient has been drained in the past and the structures of the cystic rather than malignant or solids. On 06/01/2017, the patient is stable and the patient has no new complaints. Simply of any chest pain. She is ambulating. 95% pulse ox on 3 selection by nasal cannula. She is afebrile. No cardiac arrhythmias. No other complaints otherwise for now. Tentative plan is to proceed with surgery next week. On 06/02/2017, the patient is being seen him follow-up. Currently she is interested intensive care unit intubated on a mechanical ventilator. The events that occurred overnight was noted. The patient acutely went into V. fib at around 10:00 and the patient received CPR and defibrillation. The exact downtime was less than 5 minutes. The patient received a total of 2 defibrillation 3 rounds of epinephrine. There was return of spontaneous circulation. The patient was intubated and brought to the intensive care unit. This morning she is sedated With Diprivan and currently Diprivan is running at 50 mics. I was told that the patient was able to follow commands following her cardiac arrest and neurologically seems to be intact despite his underlying cardiac arrest. The patient is on no pressors. Currently she is on assist control mode of ventilation at the rate of 16, tidal volume of 450, FiO2 of 60% and a PEEP of 5. The patient's pH is at 7.39 with a pCO2 of 41 and pO2 of 117. Chest x-ray shows adequate positioning of the ET tube. The patient also has a orogastric tube in place. She is nothing by mouth for now. She has adequate pulses in all 4 extremities. She is calm and comfortable. She is producing urine output in the order of 100 mL an hour. No further cardiac arrhythmias have been noted. The patient was given amiodarone bolus 10 mg and currently she is on a maintenance amiodarone of 0.5 mg/m. Rest of the blood pressure medications are on hold. Beta doretha was given this morning and the patient received Lopressor 25 mg orally. The case was discussed with cardiothoracic surgery. It seems that the patient will need emergent coronary artery bypass surgery and the patient will be taken to the operating room today. On 06/03/2017 I'm seeing this patient for a follow-up. The patient underwent four-vessel bypass surgery. This was done in the afternoon yesterday and the patient arrived back to the intensive care unit around 11 PM. Preoperatively, there has been difficulties with oxygenation and metabolic acidosis. Overall the patient received a total of 6 bicarb amps and the patient arrived to the intensive care unit quite stable on 7 mics of norepinephrine infusion and 1 g of epinephrine infusion.. She was producing adequate amount of urine output and she was hemodynamically stable. Necessary vent changes were done overnight and this morning the patient is on a assist-control mode at the rate of 18, tidal volume of 550, FiO2 has been weaned down to 60% and the current PEEP is at 10. Most recent blood gases showed a pH of 7.46 with a pCO2 of 38 and pO2 of 84 and this was done and FiO2 of 80%. Chest x-ray shows adequate expansion of both lungs. Lung volumes are small. ET tube is in a good location. The patient has 2 chest tubes 1 mediastinal and 1 pleural. No evidence of any pneumothorax. NG tube is in a good location. This morning, the patient is sedated with Diprivan and she is calm and comfortable. We have noted some increased activity in the right upper extremity compared to the left. Note that she is a post cardiac arrest. Mental status was checked preoperatively and she was following some simple commands. In any rate, she is still on Diprivan and Diprivan will be continued as long as the patient is not ready to wean yet. This morning she is on 2 mics of norepinephrine infusion. Cardiac index is at 2.4. Her PA pressures around 35/26, and the chest tube output has been 170 mL from the left pleural and 50s on the mediastinal. No evidence of any air leak. We will lobe and this morning is at 8.7. Correlation profile shows an INR of 1.3 with a PTT of 68. IV heparin was discontinued. Patient was evaluated today on 06/04/2017, remains on mechanical ventilation, her ventilator settings are FiO2 of 65%, tidal volume of 500 assist control rate of 18 and PEEP of 8. ABG showed a pO2 of 62 pCO2 of 34 pH of 7.48. Hence the FiO2 was increased from 60% to 65% and PEEP was increased to 8 as above. Rest of the labs were reviewed the seem to be relatively unremarkable. Chest x- ray showed what seems to be a left lower lobe consolidation. And atelectasis. Hemoglobin is 7.7. Her last echocardiogram showed good LV function. Patient remains on inotropes, but minimal doses. Remains on amiodarone, and she is also on insulin. Chest x-ray showed minimal pulmonary vascular congestion, and atelectasis mostly at the left base. Patient was reevaluated today on 06/05/2017, presently on 60% FiO2, assist control rate was 18, volume of 500, and PEEP was increased to 10. ABG showed a pO2 of 73 pCO2 of 33 pH of 7.48. All labs were reviewed, renal functioning is basically about the same in the last 3 days a 1.20 creatinine, and BUN is 28. Chest x-ray was also reviewed and there is evidence of bibasilar atelectasis, mostly left lower lobe collapse was noted, and the patient underwent bronchoscopy after visualizing her chest x-ray today. PEEP was increased to 10. And the patient was started on empiric antibiotics in the form of Levaquin. Remains on 1 mcg/m of norepinephrine, patient is fully sedated on propofol, however we plan to place the patient on a sedation holiday, and hopefully assess for weaning parameters today. If possible. Patient is clearly not ready for weaning and extubation at this point. Cardiac-munguia she has intermittent episodes of atrial fibrillation, had 1 episode early this morning, presently in normal sinus rhythm. Patient was reevaluated on 06/06/2017, remains on mechanical ventilation, I was able to cut down her FiO2 to 50%, but she remains on a PEEP of 10. Asked x-ray continues to show bilateral opacities at the bases, with more atelectasis is noted in the left lower lobe. All her labs were reviewed, patient was taken off propofol, however the patient remained extremely lethargic, and we did not get to the point where the patient could follow any instructions. Could not even consider a spontaneous breathing trial. At the same time the patient remains on relatively high PEEP, and her ABG remains a very marginal with pO2 in the low 70s. Patient was reevaluated today on 06/07/2017, remains on the same ventilator settings, presently on a pO2 of 50%, and PEEP of 10. ABG was noted, and it is within reasonable range, improved compared to baseline. However not much room to cut down the PEEP any further. Chest x-ray is showing some improvement in her bibasilar atelectasis. Lavage cultures are showing gram-negative bacilli, final identification is pending, patient remains on Levaquin in the meantime. Patient received a unit of packed RBCs today for low hemoglobin of 6.9, and we' ll plan to discontinue sedation, and hopefully assess mental status, and possibly even proceed with spontaneous breathing trials if the patient's mental status allows. Chest x-ray labs and ABG were all reviewed. Reevaluated today on 06/08/2017, patient is postoperative day #6, urgent coronary bypass grafting 4, postoperative day #2 bronchoscopy and bronchoalveolar lavage of the left lower lobe which came back positive for Enterobacter cloacae. Patient remains on mechanical ventilation, her vent settings are tidal volume of 500 assist control rate of 18 FiO2 of 50% and PEEP of 10. ABG showed a pO2 of 79 pCO2 of 37 pH of 7.47. Her peak airway pressure was noted but the plateau pressure is in the range of 22. Compliance is in the range of 40. CBC showed a hemoglobin of 7.7 otherwise the labs are unremarkable platelets are 128. Basic metabolic profile is relatively normal and renal profile is relatively normal. Patient is hemodynamically stable, however the main issue at this point is her mental status, and I felt it would be best to send the patient down for a CT of the brain. In spite of holding propofol for many hours yesterday, patient could not arouse enough to follow any instructions whatsoever. She has some conjugate gaze of the left eye, and does not seem to respond to any stimuli. Pupils are definitely reactive to light. Reevaluated today on 06/09/2017, patient is postoperative day #7. Urgent coronary bypass grafting 4, postoperative day #3 bronchoscopy and bronchoalveolar lavage which came back positive for Enterobacter cloaca. Patient is presently on Merrem. Her ventilator settings are basically the same , she is however now on a PEEP of 5, FiO2 of 50% assist control rate of 18 and tidal volume of 500. ABG this morning showed a pO2 of 81 pCO2 of 37 pH of 7.50. All labs from today including the basic metabolic profile and CBC were reviewed, hemoglobin is 7.6, WBC count is 6.1. Platelets are 1 49,000. Patient was taken off propofol early this morning, I was able to communicate with the patient, and she was following very simple instructions like sticking out tongue, closing eyes, and wiggling toes. Hence proceeded to keep her off propofol, and at one point she remained quite lethargic, but at one point she became extremely agitated, heart rate went up significantly, blood pressure was also noted to be significantly higher, patient had to be placed back on propofol. All her meds were reviewed, and I added Seroquel knowing the patient gets agitated easily and she gets very anxious. Chest x-ray shows very minimal vascular congestion, and small tiny pleural effusions. Minimal atelectasis is also noted at the bases, but improved compared to the initial chest x-ray before bronchoscopy. Objective - Vital Signs Vital signs: Vital Signs Temp 98.7 F 06/09/17 12:00 Pulse 85 06/09/17 12:00 Resp 24 06/09/17 12:00 BP 144/69 06/09/17 10:00 Pulse Ox 94 L 06/09/17 12:00 Intake & Output 06/08/17 06/09/17 06/09/17 18:59 06:59 18:59 Intake Total 8897.605 2023.595 669.563 Output Total 8572 495 4192 Balance -491.534 8558.595 -1425.437 Weight 124 kg Intake: IV 432.4 404.7 166.2 0.9 240 220 120 0.9 for pressure 36 33 18 Meropenem 1 gm In Sodium 100 100 Chloride 0.9% 100 ml @ 200 mls/hr IVPB Q8HR [facility]LV[facility] Rx#:[id number] primacor 56.4 51.7 28.2 Intake, IV Titration 188.425 454.895 17.363 Amount Insulin Regular 100 unit 88.425 148.667 12.833 In Sodium Chloride 0.9% 100 ml @ Per Protocol IV .Q0M [facility] Rx#:[id number] Milrinone-D5w Pmx 20 mg 6.228 In Dextrose/Water 1 100ml .bag @ Per Protocol IV . Q0M [facility] Rx#:[id number] Propofol 1,000 mg In 100 300 4.53 Empty Bag 1 bag @ Titrate IV .Q0M OLV[facility] Rx#: [id number] Tube Feeding 486 864 486 Other 100 300 Output: Drainage 230 220 110 Right Lower Medial Calf 230 220 110 Urine 7467 157 6693 Other: Voiding Method Indwelling Catheter Indwelling Catheter Indwelling Catheter ABP, PAP, CO, CI - Last Documented Arterial Blood Pressure 142/60 Pulmonary Artery Pressure 33/21 Cardiac Output 5 Cardiac Index 2.4 - Exam - Exam Physical examination revealed a 66-year-old female, on mechanical ventilation, off propofol at present, was able to follow very simple instructions like wiggling toes and closing eyes. - Constitutional General appearance: Does not seem to be in any form of distress., On mechanical ventilation. - EENT Eyes: PERRLA, EOMI. Pupils are both reactive to light. - Neck Details: Neck is supple, no neck masses, no thyromegaly, lives in the neck were noted endotracheal tube is intact. - Respiratory Details: Lung sounds diminished breath sound bilaterally, no crackles or rhonchi or wheezes, chest tubes noted in place. Sternum seems to be stable. - Cardiovascular Details: Regular rhythm and rate. S1 and S2 present, negative for S3, gallop or murmur. Sternum is stable. - Gastrointestinal Gastrointestinal Comment(s): Soft nontender no megaly no rebound no guarding, positive bowel sounds. - Genitourinary Genitourinary Comment(s): Lea catheter noted. - Integumentary Integumentary Comment(s): Skin is warm and dry. No cyanosis or clubbing. Both lower extremities are dressed with compression stockings and Venodyne boots. - Neurologic Neurologic Comment(s): Able to follow very simple instructions for a short period of time while she was off propofol.- Musculoskeletal Musculoskeletal: Cannot be fully assessed. But the patient is able to follow simple instructions. - Labs CBC & Chem 7: 06/09/17 04:00 06/09/17 04:00 Labs: Abnormal Lab Results - Last 24 Hours (Table) 06/07/17 06/08/17 06/08/17 Range/Units 06:05 13:06 13:54 RBC (3.80-5.40) m/uL Hgb (11.4-16.0) gm/dL Hct (34.0-46.0) % Plt Count (150-450) k/uL Lymphocytes # (1.0-4.8) k/uL ABG pH (7.35-7.45) ABG pO2 (83-108) mmHg ABG HCO3 (21-25) mmol/L ABG Total CO2 (19-24) mmol/L Sodium (137-145) mmol/L Chloride (98-107) mmol/L BUN (7-17) mg/dL Glucose (74-99) mg/dL POC Glucose (mg/dL) 143 H 127 H (75-99) mg/dL Calcium (8.4-10.2) mg/dL Magnesium (1.6-2.3) mg/dL ALT (9-52) U/L Total Protein (6.3-8.2) g/dL Albumin (3.5-5.0) g/dL Crossmatch See Detail 06/08/17 06/08/17 06/08/17 Range/Units 14:58 17:19 17:50 RBC (3.80-5.40) m/uL Hgb (11.4-16.0) gm/dL Hct (34.0-46.0) % Plt Count (150-450) k/uL Lymphocytes # (1.0-4.8) k/uL ABG pH (7.35-7.45) ABG pO2 (83-108) mmHg ABG HCO3 (21-25) mmol/L ABG Total CO2 (19-24) mmol/L Sodium (137-145) mmol/L Chloride 108 H (98-107) mmol/L BUN (7-17) mg/dL Glucose (74-99) mg/dL POC Glucose (mg/dL) 120 H 146 H (75-99) mg/dL Calcium (8.4-10.2) mg/dL Magnesium (1.6-2.3) mg/dL ALT (9-52) U/L Total Protein (6.3-8.2) g/dL Albumin (3.5-5.0) g/dL Crossmatch 06/08/17 06/08/17 06/09/17 Range/Units 18:52 20:30 00:06 RBC (3.80-5.40) m/uL Hgb (11.4-16.0) gm/dL Hct (34.0-46.0) % Plt Count (150-450) k/uL Lymphocytes # (1.0-4.8) k/uL ABG pH (7.35-7.45) ABG pO2 (83-108) mmHg ABG HCO3 (21-25) mmol/L ABG Total CO2 (19-24) mmol/L Sodium (137-145) mmol/L Chloride (98-107) mmol/L BUN (7-17) mg/dL Glucose (74-99) mg/dL POC Glucose (mg/dL) 116 H 118 H 111 H (75-99) mg/dL Calcium (8.4-10.2) mg/dL Magnesium (1.6-2.3) mg/dL ALT (9-52) U/L Total Protein (6.3-8.2) g/dL Albumin (3.5-5.0) g/dL Crossmatch 06/09/17 06/09/17 06/09/17 Range/Units 04:00 04:00 06:01 RBC 2.69 L (3.80-5.40) m/uL Hgb 7.6 L (11.4-16.0) gm/dL Hct 23.9 L (34.0-46.0) % Plt Count 149 L (150-450) k/uL Lymphocytes # 0.9 L (1.0-4.8) k/uL ABG pH (7.35-7.45) ABG pO2 (83-108) mmHg ABG HCO3 (21-25) mmol/L ABG Total CO2 (19-24) mmol/L Sodium 146 H (137-145) mmol/L Chloride 109 H (98-107) mmol/L BUN 34 H (7-17) mg/dL Glucose 71 L (74-99) mg/dL POC Glucose (mg/dL) 139 H (75-99) mg/dL Calcium 8.3 L (8.4-10.2) mg/dL Magnesium 2.5 H (1.6-2.3) mg/dL ALT 65 H (9-52) U/L Total Protein 5.0 L (6.3-8.2) g/dL Albumin 2.5 L (3.5-5.0) g/dL Crossmatch 06/09/17 06/09/17 06/09/17 Range/Units 07:25 07:45 09:02 RBC (3.80-5.40) m/uL Hgb (11.4-16.0) gm/dL Hct (34.0-46.0) % Plt Count (150-450) k/uL Lymphocytes # (1.0-4.8) k/uL ABG pH 7.50 H (7.35-7.45) ABG pO2 81 L (83-108) mmHg ABG HCO3 26 H (21-25) mmol/L ABG Total CO2 27 H (19-24) mmol/L Sodium (137-145) mmol/L Chloride (98-107) mmol/L BUN (7-17) mg/dL Glucose (74-99) mg/dL POC Glucose (mg/dL) 139 H 142 H (75-99) mg/dL Calcium (8.4-10.2) mg/dL Magnesium (1.6-2.3) mg/dL ALT (9-52) U/L Total Protein (6.3-8.2) g/dL Albumin (3.5-5.0) g/dL Crossmatch 06/09/17 06/09/17 06/09/17 Range/Units 10:02 10:54 12:04 RBC (3.80-5.40) m/uL Hgb (11.4-16.0) gm/dL Hct (34.0-46.0) % Plt Count (150-450) k/uL Lymphocytes # (1.0-4.8) k/uL ABG pH (7.35-7.45) ABG pO2 (83-108) mmHg ABG HCO3 (21-25) mmol/L ABG Total CO2 (19-24) mmol/L Sodium (137-145) mmol/L Chloride (98-107) mmol/L BUN (7-17) mg/dL Glucose (74-99) mg/dL POC Glucose (mg/dL) 124 H 106 H 108 H (75-99) mg/dL Calcium (8.4-10.2) mg/dL Magnesium (1.6-2.3) mg/dL ALT (9-52) U/L Total Protein (6.3-8.2) g/dL Albumin (3.5-5.0) g/dL Crossmatch Assessment and Plan Assessment: 1 acute hypoxic respiratory failure requiring intubation secondary to acute cardiac arrest, acute v fibrillation, resuscitated successfully, defibrillated and the patient is currently intubated on a mechanical ventilator. The acute episode of V. fib was probably ischemic in nature. 2 Symptomatic multivessel coronary artery disease involving the proximal and mid LAD, RCA and diffuse disease in the circumflex coronary artery, post LA, post four-vessel bypass surgery and the patient is postop day #7. Adequate cardiac index and output. Hemodynamically stable. Not ready to wean yet mostly because of her overall neurological status. 3 . COPD, with a baseline FEV1 of 76% of predicted on outpatient basis. 4. Obstructive sleep apnea, with baseline AHI of 80, patient was prescribed BiPAP therapy at pressures 21/17 cm of water. 5. Obesity, 6. Coronary artery disease, with previous stenting 7. Recent hospitalization for right lung pneumonia at [facility] in March 2017. Patient had a thoracentesis for pleural effusion during that admission 8. Hyperlipidemia and hypertension hypertension 9. History of right breast cancer with lumpectomy/lymph node removal and radiation 10. GERD/reflux 11 a large cystic structure within the right axilla. Could be a recurrent breast cancer although this is a remote possibility. This has been addressed by many general surgeons out of town, and by Dr. trotter at one point. 12 diabetes mellitus, currently on insulin drip for blood sugar control 13 anemia, hemoglobin is at 7.6 14 left lower lobe pneumonia, acute, secondary to Enterobacter cloacae, hospital acquired. Patient had her left lower lobe abnormality even from day one she was on mechanical ventilation. Hence it is not ventilator associated pneumonia. Recommendation: Continue present ventilatory support, continue to hold propofol intermittently on daily basis, not quite ready for weaning at this point, we'll continue to follow. Today I was able to at least get some responses from the patient, she was wiggling toes and closing eyes, sticking out her tongue upon request. But as she went off propofol longer, patient became extremely agitated , had to place her back on propofol, and Seroquel was added. Critical care time is 34 minutes. Time with Patient: Greater than 30
--- NOTE | 2017-06-09 13:53 | PN ---
PROGRESS NOTE A 66-year-old lady who is admitted to the hospital with unstable angina, underwent cardiac catheterization and bypass surgery. We are currently dealing with respiratory failure. She has had prolonged intubation, currently intubated on vent. I am seeing her for the first time. She remains in sinus rhythm. Has had episodes of ventricular fibrillation in the past. PHYSICAL EXAMINATION: On exam, intubated on vent. Vital signs are stable. Chest exam reveals diminished air entry bilaterally. Heart exam reveals first and second heart sounds. No gallop. No murmur. Abdomen is soft. Examination of extremities did not reveal any edema. LABS: Labs show that the blood sugar is 105. ASSESSMENT: 1. Coronary artery disease, status post coronary artery bypass grafting with respiratory failure. 2. History of ventricular fibrillation. 3. Morbid obesity. PLAN: Continue with current supportive care. Prognosis is guarded. IRENAL / RUBENN: [id number] /
[2017-06-09 14:06] LABS: Glucose,Whole Blood 134 mg/dL (75-99)
[2017-06-09 14:45] LABS: Glucose,Whole Blood 117 mg/dL (75-99)
[2017-06-09 16:19] LABS: Glucose,Whole Blood 106 mg/dL (75-99)
[2017-06-09 17:25] LABS: Glucose,Whole Blood 128 mg/dL (75-99)
[2017-06-09] MEDS ORDERED: DEXTROSE 5% IN WATER 100 ML with AMIODARONE 150 MG IV ONE (18:36)
[2017-06-09] MEDS ORDERED: METOPROLOL TARTRATE 50 MG TAB PO STA (18:37)
[2017-06-09 18:54] LABS: Glucose,Whole Blood 122 mg/dL (75-99)
[2017-06-09] MEDS ORDERED: METOPROLOL TARTRATE 50 MG TAB PO SCH (21:00)
[2017-06-09] MEDS: SENNOSIDES-DOCUSATE SODIUM 1 EACH TAB PO SCH (21:18)
[2017-06-09 21:32] LABS: Glucose,Whole Blood 110 mg/dL (75-99)
[2017-06-09] MEDS: LACTATED RINGERS 1,000 ML IV SCH (21:48)
[2017-06-09] MEDS: ACETAMINOPHEN TAB 500 MG TAB PO PRN (23:54)
[2017-06-10 00:02] LABS: Glucose,Whole Blood 120 mg/dL (75-99)
[2017-06-10] MEDS: IPRATROPIUM-ALBUTEROL 3 ML NEB INHALATION SCH ×7 (00:07→23:31)
--- NOTE | 2017-06-10 00:20 | P.CNNES ---
History of Present Illness Consult date: 06/09/17 Requesting physician: Charlie Waddell Reason for Consult: Altered mental status Chief complaint: Altered mental status History of Present Illness: Neurology is consulting on a 66 year old female that is sedated in the ICU on a ventilator at time examination for altered mental status. Patient is 7 days post CABG. Patient is currently in respiratory failure. Patient has had prolonged ventilator assistance. Neurology has not consulted on the patient prior. Patient is in sinus rhythm, on telemetry monitoring, pneumatic compression devices in use. Extremities did not reveal any cyanosis or clubbing. Review of Systems All systems not noted in HPI are negative. Past Medical History Past Medical History: Asthma, Coronary Artery Disease (CAD), Cancer, Chest Pain / Angina, COPD, Diabetes Mellitus, GERD/Reflux, Hyperlipidemia, Hypertension, Myocardial Infarction ([place]), Pneumonia, Sleep Apnea/CPAP/BIPAP Additional Past Medical History / Comment(s): Pt states she had pneumonia and was sent home with home O2 and she felt she had recovered, she then states she started having bilateral lower leg edema/redness with L leg worse, she states she sleeps in a recliner because she coughs too much if she doesn't. She states she started having jaw, chest and L sided back (scapular) pain on and off the past week. Other hx: IDDM type II, [place] in 1998 and 2010, [place] with CPAP but was not able to use since pneumonia so she states equipment company took machine away, R breast cancer with lumpectomy/lymph node removals and had radiation, anemia, unsteady gait. Last Myocardial Infarction Date:: 2010 History of Any Multi-Drug Resistant Organisms: None Reported Past Surgical History: Breast Surgery, Heart Catheterization, Heart Catheterization With Stent, Hysterectomy, Tonsillectomy Additional Past Surgical History / Comment(s): 07/2010 PCI with stent to RCA, R breast lumpectomy/lymph node removals, colonoscopy with benign polypectomies. Past Anesthesia/Blood Transfusion Reactions: No Reported Reaction Additional Past Anesthesia/Blood Transfusion Reaction / Comment(s): Pt states she received blood with hysterectomy without reaction. Date of Last Stent Placement:: 2010 Smoking Status: Former smoker Past Alcohol Use History: None Reported Past Drug Use History: None Reported - Past Family History Mother Family Medical History: Cancer, Hyperlipidemia, Hypertension Additional Family Medical History / Comment(s): Mother had breast cancer 50 yrs ago. She is living. Father Family Medical History: Diabetes Mellitus Additional Family Medical History / Comment(s): Father is . Medications and Allergies Home Medications Medication Instructions Recorded Confirmed Type ALPRAZolam [Xanax] 0.25 mg PO Q6HR PRN 05/28/17 05/28/17 History Albuterol Sulfate [Proair Hfa] 2 puff INHALATION RT-Q4H PRN 05/28/17 05/28/17 History Alendronate Sodium [Fosamax] 70 mg PO CARPENTER 05/28/17 05/28/17 History Anastrozole [Arimidex] 1 mg PO DAILY 05/28/17 05/28/17 History Aspirin [Adult Low Dose Aspirin EC] 81 mg PO DAILY 05/28/17 05/28/17 History Atorvastatin [Lipitor] 20 mg PO HS 05/28/17 05/28/17 History Atorvastatin [Lipitor] 40 mg PO HS 05/28/17 05/28/17 History Budesonide [Pulmicort] 0.5 mg INHALATION RT-BID 05/28/17 05/28/17 History Clopidogrel [Plavix] 75 mg PO DAILY 05/28/17 05/28/17 History Furosemide [Lasix] 40 mg PO DAILY 05/28/17 05/28/17 History Insulin Aspart [Novolog Flexpen] 6 unit SQ W/LUNCH 05/28/17 05/28/17 History Insulin Aspart [Novolog Flexpen] 8 unit SQ BID 05/28/17 05/28/17 History Insulin Glargine,Hum.rec.anlog 60 unit SQ DAILY 05/28/17 05/28/17 History [Lantus Solostar] Ipratropium-Albuterol Nebulize 3 ml INHALATION RT-TID 05/28/17 05/28/17 History [Duoneb 0.5 mg-3 mg/3 ml Soln] Isosorbide Mononitrate ER [Imdur] 60 mg PO DAILY 05/28/17 05/28/17 History Lisinopril [Zestril] 20 mg PO DAILY 05/28/17 05/28/17 History Metoprolol Tartrate [Lopressor] 50 mg PO DAILY 05/28/17 05/28/17 History Montelukast [Singulair] 10 mg PO HS 05/28/17 05/28/17 History Omeprazole 20 mg PO BID 05/28/17 05/28/17 History Ramipril 10 mg PO BID 05/28/17 05/28/17 History amLODIPine BESYLATE [Norvasc] 5 mg PO DAILY 05/28/17 05/28/17 History cloNIDine HCL [Catapres] 0.1 mg PO DAILY 05/28/17 05/28/17 History metFORMIN HCL 1,000 mg PO BID 05/28/17 05/28/17 History Allergies Allergy/AdvReac Type Severity Reaction Status Date / Time Penicillins Allergy Severe Rash/Hives Verified 05/28/17 14:15 Physical Examination - Vital Signs Vital Signs: Vital Signs Temp Pulse Resp BP Pulse Ox 06/09/17 21:20 85 06/09/17 21:03 85 06/09/17 21:00 86 18 100 06/09/17 20:00 101.2 F H 129 H 18 98 06/09/17 19:00 123 H 27 H 94 L 06/09/17 18:00 89 28 H 98 06/09/17 17:00 89 27 H 95 06/09/17 16:45 88 06/09/17 16:35 88 06/09/17 16:00 100 F H 84 28 H 97 06/09/17 15:00 81 24 96 06/09/17 14:00 81 18 95 06/09/17 13:00 84 18 95 06/09/17 12:00 98.7 F 85 24 94 L 06/09/17 11:32 88 06/09/17 11:22 90 06/09/17 11:00 84 18 95 06/09/17 10:00 85 20 144/69 98 06/09/17 09:00 84 18 97 06/09/17 08:45 80 06/09/17 08:35 89 06/09/17 08:00 99.1 F 86 18 97 06/09/17 07:00 83 18 96 06/09/17 06:00 83 18 96 06/09/17 05:00 83 24 96 06/09/17 04:10 80 06/09/17 04:00 98.4 F 77 18 104/57 99 06/09/17 03:55 77 06/09/17 03:00 76 19 104/57 97 06/09/17 02:00 77 19 97 06/09/17 01:42 98.9 F 06/09/17 01:03 79 06/09/17 01:00 78 18 99 06/09/17 00:56 77 06/09/17 00:00 100.7 F H 83 28 H 106/59 96 Intake and Output 06/09/17 06/09/17 06/10/17 14:59 22:59 06:59 Intake Total 329.501 9197.450 Output Total 2235 682 Balance -1288.020 410.450 Intake: IV 221.6 303.7 0.9 160 160 0.9 for pressure 24 39 Meropenem 1 gm In Sodium 100 Chloride 0.9% 100 ml @ 200 mls/hr IVPB Q8HR OLV[facility] Rx#:[id number] primacor 37.6 4.7 Intake, IV Titration 77.380 128.750 Amount Insulin Regular 100 unit 72.850 28.750 In Sodium Chloride 0.9% 100 ml @ Per Protocol IV .Q0M OLVIN Rx#:[id number] Propofol 1,000 mg In 4.53 100 Empty Bag 1 bag @ Titrate IV .Q0M OLVIN Rx#: [id number] Tube Feeding 648 540 Other 120 Output: Drainage 110 105 Right Lower Medial Calf 110 105 Urine 2125 577 Other: Voiding Method Indwelling Catheter Indwelling Catheter ABP, PAP, CO, CI - Last 8 Hours Arterial Blood Pressure 102/80 Arterial Blood Pressure 117/56 Arterial Blood Pressure 125/52 Arterial Blood Pressure 123/50 Arterial Blood Pressure 110/53 Arterial Blood Pressure 87/83 General appearance: Alert & oriented x4, no apparent distress. Head: Atraumatic, normocephalic, normal inspection Eyes: PERRLA Ear, nose and throat: Normal exam, mucous membranes moist Neck: Normal inspection, absent tenderness, lymphadenopathy. Respiratory: obtunded on ventilator Cardiovascular: Regular rate, rhythm, telemonitoring in use GI/abdominal: no tenderness, no rigidity. Extremities: no clubbing or cyanosis Neurological: obtunded on ventilator, unable to complete full Psychological: Mood and affect appropriate for setting. Results - Laboratory Findings CBC and BMP: 06/09/17 04:00 06/09/17 12:43 Abnormal Lab Findings: Abnormal Labs 05/28/17 05/28/17 05/28/17 15:00 16:34 20:51 RBC Hgb Hct RDW Plt Count Neutrophils # Lymphocytes # PT INR APTT ABG pH ABG pCO2 ABG pO2 ABG HCO3 ABG Total CO2 ABG O2 Saturation ABG Hematocrit ABG Sodium ABG Potassium ABG Ionized Calcium ABG Glucose ABG Lactic Acid Hemoglobin Sodium Potassium Chloride Carbon Dioxide BUN Creatinine Glucose POC Glucose (mg/dL) 108 H 190 H Hemoglobin A1c Calcium Ionized Calcium [place] Magnesium Total Bilirubin AST ALT Alkaline Phosphatase Troponin I 0.038 H* Total Protein Albumin Triglycerides HDL Cholesterol Arterial Blood Potassium Arterial Blood Glucose Ur Specific [place] Urine Protein Crossmatch 05/28/17 05/29/17 05/29/17 23:20 04:40 06:04 RBC Hgb Hct RDW Plt Count Neutrophils # Lymphocytes # PT INR APTT ABG pH ABG pCO2 ABG pO2 ABG HCO3 ABG Total CO2 ABG O2 Saturation ABG Hematocrit ABG Sodium ABG Potassium ABG Ionized Calcium ABG Glucose ABG Lactic Acid Hemoglobin Sodium Potassium 3.3 L Chloride Carbon Dioxide BUN 18 H Creatinine Glucose 191 H POC Glucose (mg/dL) 214 H Hemoglobin A1c Calcium Ionized Calcium [place] Magnesium Total Bilirubin AST ALT Alkaline Phosphatase Troponin I 0.035 H* Total Protein Albumin Triglycerides HDL Cholesterol Arterial Blood Potassium Arterial Blood Glucose Ur Specific [place] Urine Protein Crossmatch 05/29/17 05/29/17 05/29/17 15:07 15:07 15:14 RBC Hgb Hct RDW Plt Count Neutrophils # Lymphocytes # PT INR APTT ABG pH ABG pCO2 ABG pO2 ABG HCO3 ABG Total CO2 ABG O2 Saturation ABG Hematocrit ABG Sodium ABG Potassium ABG Ionized Calcium ABG Glucose ABG Lactic Acid Hemoglobin Sodium Potassium 3.3 L Chloride Carbon Dioxide BUN Creatinine Glucose 161 H POC Glucose (mg/dL) Hemoglobin A1c 9.4 H Calcium Ionized Calcium [place] Magnesium Total Bilirubin AST ALT Alkaline Phosphatase Troponin I Total Protein Albumin Triglycerides 216 H HDL Cholesterol 36 L Arterial Blood Potassium Arterial Blood Glucose Ur Specific [place] >1.050 H Urine Protein Trace H Crossmatch 05/29/17 05/29/17 05/29/17 15:28 17:04 20:49 RBC Hgb Hct RDW Plt Count Neutrophils # Lymphocytes # PT INR APTT ABG pH ABG pCO2 ABG pO2 ABG HCO3 ABG Total CO2 ABG O2 Saturation ABG Hematocrit ABG Sodium ABG Potassium ABG Ionized Calcium ABG Glucose ABG Lactic Acid Hemoglobin Sodium Potassium Chloride Carbon Dioxide BUN Creatinine Glucose POC Glucose (mg/dL) 167 H 222 H 205 H Hemoglobin A1c Calcium Ionized Calcium [place] Magnesium Total Bilirubin AST ALT Alkaline Phosphatase Troponin I Total Protein Albumin Triglycerides HDL Cholesterol Arterial Blood Potassium Arterial Blood Glucose Ur Specific [place] Urine Protein Crossmatch 05/30/17 05/30/17 05/30/17 06:00 06:21 10:45 RBC Hgb Hct RDW Plt Count Neutrophils # Lymphocytes # 0.8 L PT INR APTT ABG pH ABG pCO2 ABG pO2 ABG HCO3 ABG Total CO2 ABG O2 Saturation ABG Hematocrit ABG Sodium ABG Potassium ABG Ionized Calcium ABG Glucose ABG Lactic Acid Hemoglobin Sodium Potassium Chloride Carbon Dioxide BUN Creatinine Glucose 176 H POC Glucose (mg/dL) 161 H Hemoglobin A1c Calcium Ionized Calcium [place] Magnesium Total Bilirubin AST ALT Alkaline Phosphatase Troponin I Total Protein Albumin Triglycerides HDL Cholesterol Arterial Blood Potassium Arterial Blood Glucose Ur Specific [place] Urine Protein Crossmatch 05/30/17 05/30/17 05/30/17 10:45 11:16 16:27 RBC Hgb Hct RDW Plt Count Neutrophils # Lymphocytes # PT INR APTT 21.3 L ABG pH ABG pCO2 ABG pO2 ABG HCO3 ABG Total CO2 ABG O2 Saturation ABG Hematocrit ABG Sodium ABG Potassium ABG Ionized Calcium ABG Glucose ABG Lactic Acid Hemoglobin Sodium Potassium Chloride Carbon Dioxide BUN Creatinine Glucose POC Glucose (mg/dL) 283 H 315 H Hemoglobin A1c Calcium Ionized Calcium [place] Magnesium Total Bilirubin AST ALT Alkaline Phosphatase Troponin I Total Protein Albumin Triglycerides HDL Cholesterol Arterial Blood Potassium Arterial Blood Glucose Ur Specific [place] Urine Protein Crossmatch 05/30/17 05/31/17 05/31/17 20:54 02:33 02:33 RBC Hgb 10.9 L Hct 33.4 L RDW Plt Count Neutrophils # Lymphocytes # PT INR APTT 30.2 H ABG pH ABG pCO2 ABG pO2 ABG HCO3 ABG Total CO2 ABG O2 Saturation ABG Hematocrit ABG Sodium ABG Potassium ABG Ionized Calcium ABG Glucose ABG Lactic Acid Hemoglobin Sodium Potassium Chloride Carbon Dioxide BUN Creatinine Glucose POC Glucose (mg/dL) 285 H Hemoglobin A1c Calcium Ionized Calcium [place] Magnesium Total Bilirubin AST ALT Alkaline Phosphatase Troponin I Total Protein Albumin Triglycerides HDL Cholesterol Arterial Blood Potassium Arterial Blood Glucose Ur Specific [place] Urine Protein Crossmatch 05/31/17 05/31/17 05/31/17 05:38 06:02 10:51 RBC Hgb Hct RDW Plt Count Neutrophils # Lymphocytes # PT INR APTT 39.4 H ABG pH 7.46 H ABG pCO2 ABG pO2 68 L ABG HCO3 28 H ABG Total CO2 30 H ABG O2 Saturation 93.3 L ABG Hematocrit ABG Sodium ABG Potassium ABG Ionized Calcium ABG Glucose ABG Lactic Acid Hemoglobin Sodium Potassium Chloride Carbon Dioxide BUN Creatinine Glucose POC Glucose (mg/dL) 200 H Hemoglobin A1c Calcium Ionized Calcium [place] Magnesium Total Bilirubin AST ALT Alkaline Phosphatase Troponin I Total Protein Albumin Triglycerides HDL Cholesterol Arterial Blood Potassium Arterial Blood Glucose Ur Specific [place] Urine Protein Crossmatch 05/31/17 05/31/17 05/31/17 11:56 16:48 18:42 RBC Hgb Hct RDW Plt Count Neutrophils # Lymphocytes # PT INR APTT 45.2 H ABG pH ABG pCO2 ABG pO2 ABG HCO3 ABG Total CO2 ABG O2 Saturation ABG Hematocrit ABG Sodium ABG Potassium ABG Ionized Calcium ABG Glucose ABG Lactic Acid Hemoglobin Sodium Potassium Chloride Carbon Dioxide BUN Creatinine Glucose POC Glucose (mg/dL) 236 H 235 H Hemoglobin A1c Calcium Ionized Calcium [place] Magnesium Total Bilirubin AST ALT Alkaline Phosphatase Troponin I Total Protein Albumin Triglycerides HDL Cholesterol Arterial Blood Potassium Arterial Blood Glucose Ur Specific [place] Urine Protein Crossmatch 05/31/17 06/01/17 06/01/17 20:53 02:29 02:29 RBC Hgb 11.2 L Hct RDW Plt Count Neutrophils # Lymphocytes # PT INR APTT 80.6 H ABG pH ABG pCO2 ABG pO2 ABG HCO3 ABG Total CO2 ABG O2 Saturation ABG Hematocrit ABG Sodium ABG Potassium ABG Ionized Calcium ABG Glucose ABG Lactic Acid Hemoglobin Sodium Potassium Chloride Carbon Dioxide BUN Creatinine Glucose POC Glucose (mg/dL) 179 H Hemoglobin A1c Calcium Ionized Calcium [place] Magnesium Total Bilirubin AST ALT Alkaline Phosphatase Troponin I Total Protein Albumin Triglycerides HDL Cholesterol Arterial Blood Potassium Arterial Blood Glucose Ur Specific [place] Urine Protein Crossmatch 06/01/17 06/01/17 06/01/17 02:33 06:09 10:17 RBC Hgb Hct RDW Plt Count Neutrophils # Lymphocytes # PT INR APTT 56.2 H ABG pH ABG pCO2 ABG pO2 ABG HCO3 ABG Total CO2 ABG O2 Saturation ABG Hematocrit ABG Sodium ABG Potassium ABG Ionized Calcium ABG Glucose ABG Lactic Acid Hemoglobin Sodium Potassium 3.4 L Chloride Carbon Dioxide 21 L BUN Creatinine Glucose 239 H POC Glucose (mg/dL) 229 H Hemoglobin A1c Calcium Ionized Calcium [place] Magnesium Total Bilirubin AST ALT Alkaline Phosphatase Troponin I Total Protein Albumin Triglycerides HDL Cholesterol Arterial Blood Potassium Arterial Blood Glucose Ur Specific [place] Urine Protein Crossmatch 06/01/17 06/01/17 06/01/17 11:05 16:11 20:47 RBC Hgb Hct RDW Plt Count Neutrophils # Lymphocytes # PT INR APTT ABG pH ABG pCO2 ABG pO2 ABG HCO3 ABG Total CO2 ABG O2 Saturation ABG Hematocrit ABG Sodium ABG Potassium ABG Ionized Calcium ABG Glucose ABG Lactic Acid Hemoglobin Sodium Potassium Chloride Carbon Dioxide BUN Creatinine Glucose POC Glucose (mg/dL) 228 H 190 H 145 H Hemoglobin A1c Calcium Ionized Calcium [place] Magnesium Total Bilirubin AST ALT Alkaline Phosphatase Troponin I Total Protein Albumin Triglycerides HDL Cholesterol Arterial Blood Potassium Arterial Blood Glucose Ur Specific [place] Urine Protein Crossmatch 06/01/17 06/01/17 06/01/17 22:02 23:21 23:54 RBC 3.74 L Hgb 10.7 L Hct 32.2 L RDW Plt Count Neutrophils # 8.9 H Lymphocytes # 0.8 L PT INR APTT ABG pH ABG pCO2 ABG pO2 ABG HCO3 ABG Total CO2 ABG O2 Saturation ABG Hematocrit ABG Sodium ABG Potassium ABG Ionized Calcium ABG Glucose ABG Lactic Acid Hemoglobin Sodium Potassium Chloride Carbon Dioxide BUN Creatinine Glucose POC Glucose (mg/dL) 177 H 259 H Hemoglobin A1c Calcium Ionized Calcium [place] Magnesium Total Bilirubin AST ALT Alkaline Phosphatase Troponin I Total Protein Albumin Triglycerides HDL Cholesterol Arterial Blood Potassium Arterial Blood Glucose Ur Specific [place] Urine Protein Crossmatch 06/01/17 06/01/17 06/01/17 23:54 23:54 23:58 RBC Hgb Hct RDW Plt Count Neutrophils # Lymphocytes # PT INR APTT ABG pH ABG pCO2 ABG pO2 111 H ABG HCO3 ABG Total CO2 26 H ABG O2 Saturation 98.1 H ABG Hematocrit ABG Sodium ABG Potassium ABG Ionized Calcium ABG Glucose ABG Lactic Acid Hemoglobin Sodium Potassium Chloride Carbon Dioxide BUN Creatinine Glucose 240 H POC Glucose (mg/dL) Hemoglobin A1c Calcium Ionized Calcium [place] Magnesium 1.5 L Total Bilirubin AST 97 H ALT 82 H Alkaline Phosphatase Troponin I 0.064 H* Total Protein 6.1 L Albumin Triglycerides HDL Cholesterol Arterial Blood Potassium Arterial Blood Glucose Ur Specific [place] Urine Protein Crossmatch 06/02/17 06/02/17 06/02/17 04:55 05:27 05:27 RBC 3.53 L Hgb 9.7 L Hct 31.4 L RDW Plt Count Neutrophils # Lymphocytes # PT INR APTT 54.0 H ABG pH ABG pCO2 ABG pO2 117 H ABG HCO3 ABG Total CO2 26 H ABG O2 Saturation 98.2 H ABG Hematocrit ABG Sodium ABG Potassium ABG Ionized Calcium ABG Glucose ABG Lactic Acid Hemoglobin Sodium Potassium Chloride Carbon Dioxide BUN Creatinine Glucose POC Glucose (mg/dL) Hemoglobin A1c Calcium Ionized Calcium [place] Magnesium Total Bilirubin AST ALT Alkaline Phosphatase Troponin I Total Protein Albumin Triglycerides HDL Cholesterol Arterial Blood Potassium Arterial Blood Glucose Ur Specific [place] Urine Protein Crossmatch 06/02/17 06/02/17 06/02/17 05:27 05:27 11:00 RBC Hgb Hct RDW Plt Count Neutrophils # Lymphocytes # PT INR APTT ABG pH ABG pCO2 ABG pO2 ABG HCO3 ABG Total CO2 ABG O2 Saturation ABG Hematocrit ABG Sodium ABG Potassium ABG Ionized Calcium ABG Glucose ABG Lactic Acid Hemoglobin Sodium Potassium Chloride Carbon Dioxide BUN Creatinine Glucose 244 H POC Glucose (mg/dL) 205 H Hemoglobin A1c Calcium Ionized Calcium [place] Magnesium Total Bilirubin AST ALT Alkaline Phosphatase Troponin I 0.474 H* Total Protein Albumin Triglycerides HDL Cholesterol Arterial Blood Potassium Arterial Blood Glucose Ur Specific [place] Urine Protein Crossmatch 06/02/17 06/02/17 06/02/17 11:09 11:40 12:20 RBC Hgb Hct RDW Plt Count Neutrophils # Lymphocytes # PT INR APTT ABG pH ABG pCO2 ABG pO2 ABG HCO3 ABG Total CO2 ABG O2 Saturation ABG Hematocrit ABG Sodium ABG Potassium ABG Ionized Calcium ABG Glucose ABG Lactic Acid Hemoglobin Sodium Potassium Chloride Carbon Dioxide BUN Creatinine Glucose POC Glucose (mg/dL) 202 H 192 H Hemoglobin A1c Calcium Ionized Calcium [place] Magnesium Total Bilirubin AST ALT Alkaline Phosphatase Troponin I Total Protein Albumin Triglycerides HDL Cholesterol Arterial Blood Potassium Arterial Blood Glucose Ur Specific [place] Urine Protein Crossmatch See Detail 06/02/17 06/02/17 06/02/17 13:25 15:22 16:57 RBC Hgb Hct RDW Plt Count Neutrophils # Lymphocytes # PT INR APTT ABG pH ABG pCO2 ABG pO2 ABG HCO3 ABG Total CO2 ABG O2 Saturation ABG Hematocrit ABG Sodium ABG Potassium ABG Ionized Calcium ABG Glucose ABG Lactic Acid Hemoglobin Sodium Potassium Chloride Carbon Dioxide BUN Creatinine Glucose POC Glucose (mg/dL) 138 H 156 H 185 H Hemoglobin A1c Calcium Ionized Calcium [place] Magnesium Total Bilirubin AST ALT Alkaline Phosphatase Troponin I Total Protein Albumin Triglycerides HDL Cholesterol Arterial Blood Potassium Arterial Blood Glucose Ur Specific [place] Urine Protein Crossmatch 06/02/17 06/02/17 06/02/17 17:00 17:59 18:30 RBC Hgb Hct RDW Plt Count Neutrophils # Lymphocytes # PT INR APTT ABG pH 7.34 L 7.34 L ABG pCO2 ABG pO2 81 L 169 H 288 H ABG HCO3 ABG Total CO2 25 H 26 H 25 H ABG O2 Saturation 99.7 H 100.0 H ABG Hematocrit 30 L 21 L 21 L ABG Sodium ABG Potassium 4.8 H ABG Ionized Calcium 4.4 L ABG Glucose 191 H 253 H 238 H ABG Lactic Acid 1.7 H 1.9 H Hemoglobin 9.9 L 6.8 L* 6.7 L* Sodium Potassium Chloride Carbon Dioxide BUN Creatinine Glucose POC Glucose (mg/dL) Hemoglobin A1c Calcium Ionized Calcium [place] Magnesium Total Bilirubin AST ALT Alkaline Phosphatase Troponin I Total Protein Albumin Triglycerides HDL Cholesterol Arterial Blood Potassium 4.8 H Arterial Blood Glucose 191 H 253 H 238 H Ur Specific [place] Urine Protein Crossmatch 06/02/17 06/02/17 06/02/17 19:26 20:27 20:39 RBC Hgb Hct RDW Plt Count Neutrophils # Lymphocytes # PT INR APTT ABG pH 7.32 L 7.06 L* 7.19 L* ABG pCO2 56 H 54 H ABG pO2 341 H 60 L 71 L ABG HCO3 16 L ABG Total CO2 18 L ABG O2 Saturation 100.0 H 77.5 L 90.0 L ABG Hematocrit 21 L 19 L* 20 L* ABG Sodium ABG Potassium 4.9 H ABG Ionized Calcium 5.8 H ABG Glucose 238 H 321 H 379 H ABG Lactic Acid 2.7 H* 8.1 H* 9.8 H* Hemoglobin 6.9 L* 6.3 L* 6.6 L* Sodium Potassium Chloride Carbon Dioxide BUN Creatinine Glucose POC Glucose (mg/dL) Hemoglobin A1c Calcium Ionized Calcium [place] Magnesium Total Bilirubin AST ALT Alkaline Phosphatase Troponin I Total Protein Albumin Triglycerides HDL Cholesterol Arterial Blood Potassium 4.9 H Arterial Blood Glucose 238 H 321 H 379 H Ur Specific [place] Urine Protein Crossmatch 06/02/17 06/02/17 06/02/17 20:58 21:26 21:38 RBC Hgb Hct RDW Plt Count Neutrophils # Lymphocytes # PT INR APTT ABG pH 7.25 L 7.30 L 7.29 L ABG pCO2 51 H 47 H ABG pO2 66 L 72 L 59 L ABG HCO3 ABG Total CO2 ABG O2 Saturation 90.2 L 93.6 L 88.5 L ABG Hematocrit 24 L 24 L 24 L ABG Sodium 148 H ABG Potassium ABG Ionized Calcium 5.6 H ABG Glucose 348 H 286 H 269 H ABG Lactic Acid 9.0 H* 7.8 H* 7.5 H* Hemoglobin 7.8 L 7.9 L 7.8 L Sodium Potassium Chloride Carbon Dioxide BUN Creatinine Glucose POC Glucose (mg/dL) Hemoglobin A1c Calcium Ionized Calcium [place] Magnesium Total Bilirubin AST ALT Alkaline Phosphatase Troponin I Total Protein Albumin Triglycerides HDL Cholesterol Arterial Blood Potassium Arterial Blood Glucose 348 H 286 H 269 H Ur Specific [place] Urine Protein Crossmatch 06/02/17 06/02/17 06/02/17 22:50 22:50 22:50 RBC 2.99 L Hgb 8.3 L Hct 26.6 L RDW Plt Count 107 L Neutrophils # 7.8 H Lymphocytes # 0.9 L PT 14.3 H INR 1.5 H APTT 61.3 H ABG pH ABG pCO2 ABG pO2 ABG HCO3 ABG Total CO2 ABG O2 Saturation ABG Hematocrit ABG Sodium ABG Potassium ABG Ionized Calcium ABG Glucose ABG Lactic Acid Hemoglobin Sodium 149 H Potassium Chloride 108 H Carbon Dioxide BUN Creatinine Glucose 211 H POC Glucose (mg/dL) Hemoglobin A1c Calcium Ionized Calcium [place] Magnesium Total Bilirubin 1.9 H AST 50 H ALT Alkaline Phosphatase 26 L Troponin I Total Protein 4.7 L Albumin 3.2 L Triglycerides HDL Cholesterol Arterial Blood Potassium Arterial Blood Glucose Ur Specific [place] Urine Protein Crossmatch 06/02/17 06/02/17 06/02/17 22:56 23:10 23:17 RBC Hgb Hct RDW Plt Count Neutrophils # Lymphocytes # PT INR APTT ABG pH 7.27 L ABG pCO2 54 H ABG pO2 74 L ABG HCO3 ABG Total CO2 ABG O2 Saturation 93.0 L ABG Hematocrit ABG Sodium ABG Potassium ABG Ionized Calcium ABG Glucose ABG Lactic Acid Hemoglobin Sodium Potassium Chloride Carbon Dioxide BUN Creatinine Glucose POC Glucose (mg/dL) 220 H 219 H Hemoglobin A1c Calcium Ionized Calcium [place] Magnesium Total Bilirubin AST ALT Alkaline Phosphatase Troponin I Total Protein Albumin Triglycerides HDL Cholesterol Arterial Blood Potassium Arterial Blood Glucose Ur Specific [place] Urine Protein Crossmatch 06/02/17 06/03/17 06/03/17 23:47 00:08 00:56 RBC Hgb Hct RDW Plt Count Neutrophils # Lymphocytes # PT INR APTT ABG pH ABG pCO2 ABG pO2 ABG HCO3 ABG Total CO2 ABG O2 Saturation ABG Hematocrit ABG Sodium ABG Potassium ABG Ionized Calcium ABG Glucose ABG Lactic Acid Hemoglobin Sodium Potassium Chloride Carbon Dioxide BUN Creatinine Glucose POC Glucose (mg/dL) 201 H 199 H 202 H Hemoglobin A1c Calcium Ionized Calcium [place] Magnesium Total Bilirubin AST ALT Alkaline Phosphatase Troponin I Total Protein Albumin Triglycerides HDL Cholesterol Arterial Blood Potassium Arterial Blood Glucose Ur Specific [place] Urine Protein Crossmatch 06/03/17 06/03/17 06/03/17 03:59 04:05 04:05 RBC 3.07 L Hgb 8.7 L Hct 25.8 L RDW Plt Count 107 L Neutrophils # Lymphocytes # 0.5 L PT INR APTT ABG pH ABG pCO2 ABG pO2 ABG HCO3 ABG Total CO2 ABG O2 Saturation ABG Hematocrit ABG Sodium ABG Potassium ABG Ionized Calcium ABG Glucose ABG Lactic Acid Hemoglobin Sodium 147 H Potassium Chloride 110 H Carbon Dioxide BUN Creatinine Glucose 165 H POC Glucose (mg/dL) 174 H Hemoglobin A1c Calcium Ionized Calcium [place] Magnesium Total Bilirubin 2.6 H AST 73 H ALT Alkaline Phosphatase 33 L Troponin I Total Protein 4.4 L Albumin 3.0 L Triglycerides HDL Cholesterol Arterial Blood Potassium Arterial Blood Glucose Ur Specific [place] Urine Protein Crossmatch 06/03/17 06/03/17 06/03/17 04:05 04:58 04:58 RBC Hgb Hct RDW Plt Count Neutrophils # Lymphocytes # PT 12.6 H INR 1.3 H APTT 68.0 H ABG pH 7.46 H ABG pCO2 ABG pO2 ABG HCO3 26 H ABG Total CO2 ABG O2 Saturation 97.2 H ABG Hematocrit ABG Sodium ABG Potassium ABG Ionized Calcium ABG Glucose ABG Lactic Acid Hemoglobin Sodium Potassium Chloride Carbon Dioxide BUN Creatinine Glucose POC Glucose (mg/dL) 178 H Hemoglobin A1c Calcium Ionized Calcium [place] Magnesium Total Bilirubin AST ALT Alkaline Phosphatase Troponin I Total Protein Albumin Triglycerides HDL Cholesterol Arterial Blood Potassium Arterial Blood Glucose Ur Specific [place] Urine Protein Crossmatch 06/03/17 06/03/17 06/03/17 07:04 08:16 09:04 RBC Hgb Hct RDW Plt Count Neutrophils # Lymphocytes # PT INR APTT ABG pH ABG pCO2 ABG pO2 ABG HCO3 ABG Total CO2 ABG O2 Saturation ABG Hematocrit ABG Sodium ABG Potassium ABG Ionized Calcium ABG Glucose ABG Lactic Acid Hemoglobin Sodium Potassium Chloride Carbon Dioxide BUN Creatinine Glucose POC Glucose (mg/dL) 156 H 151 H 152 H Hemoglobin A1c Calcium Ionized Calcium [place] Magnesium Total Bilirubin AST ALT Alkaline Phosphatase Troponin I Total Protein Albumin Triglycerides HDL Cholesterol Arterial Blood Potassium Arterial Blood Glucose Ur Specific [place] Urine Protein Crossmatch 06/03/17 06/03/17 06/03/17 10:12 11:03 11:53 RBC Hgb Hct RDW Plt Count Neutrophils # Lymphocytes # PT INR APTT ABG pH ABG pCO2 ABG pO2 ABG HCO3 ABG Total CO2 ABG O2 Saturation ABG Hematocrit ABG Sodium ABG Potassium ABG Ionized Calcium ABG Glucose ABG Lactic Acid Hemoglobin Sodium Potassium Chloride Carbon Dioxide BUN Creatinine Glucose POC Glucose (mg/dL) 144 H 151 H 138 H Hemoglobin A1c Calcium Ionized Calcium [place] Magnesium Total Bilirubin AST ALT Alkaline Phosphatase Troponin I Total Protein Albumin Triglycerides HDL Cholesterol Arterial Blood Potassium Arterial Blood Glucose Ur Specific [place] Urine Protein Crossmatch 06/03/17 06/03/17 06/03/17 13:04 14:15 14:59 RBC Hgb Hct RDW Plt Count Neutrophils # Lymphocytes # PT INR APTT ABG pH ABG pCO2 ABG pO2 ABG HCO3 ABG Total CO2 ABG O2 Saturation ABG Hematocrit ABG Sodium ABG Potassium ABG Ionized Calcium ABG Glucose ABG Lactic Acid Hemoglobin Sodium Potassium Chloride Carbon Dioxide BUN Creatinine Glucose POC Glucose (mg/dL) 142 H 140 H 136 H Hemoglobin A1c Calcium Ionized Calcium [place] Magnesium Total Bilirubin AST ALT Alkaline Phosphatase Troponin I Total Protein Albumin Triglycerides HDL Cholesterol Arterial Blood Potassium Arterial Blood Glucose Ur Specific [place] Urine Protein Crossmatch 06/03/17 06/03/17 06/03/17 16:09 16:18 17:07 RBC Hgb Hct RDW Plt Count Neutrophils # Lymphocytes # PT INR APTT ABG pH 7.47 H ABG pCO2 ABG pO2 64 L ABG HCO3 27 H ABG Total CO2 28 H ABG O2 Saturation 93.8 L ABG Hematocrit ABG Sodium ABG Potassium ABG Ionized Calcium ABG Glucose ABG Lactic Acid Hemoglobin Sodium Potassium Chloride Carbon Dioxide BUN Creatinine Glucose POC Glucose (mg/dL) 136 H 140 H Hemoglobin A1c Calcium Ionized Calcium [place] Magnesium Total Bilirubin AST ALT Alkaline Phosphatase Troponin I Total Protein Albumin Triglycerides HDL Cholesterol Arterial Blood Potassium Arterial Blood Glucose Ur Specific [place] Urine Protein Crossmatch 06/03/17 06/03/17 06/03/17 18:02 19:02 20:14 RBC Hgb Hct RDW Plt Count Neutrophils # Lymphocytes # PT INR APTT ABG pH ABG pCO2 ABG pO2 ABG HCO3 ABG Total CO2 ABG O2 Saturation ABG Hematocrit ABG Sodium ABG Potassium ABG Ionized Calcium ABG Glucose ABG Lactic Acid Hemoglobin Sodium Potassium Chloride Carbon Dioxide BUN Creatinine Glucose POC Glucose (mg/dL) 149 H 143 H 137 H Hemoglobin A1c Calcium Ionized Calcium [place] Magnesium Total Bilirubin AST ALT Alkaline Phosphatase Troponin I Total Protein Albumin Triglycerides HDL Cholesterol Arterial Blood Potassium Arterial Blood Glucose Ur Specific [place] Urine Protein Crossmatch 06/03/17 06/03/17 06/03/17 20:58 21:58 22:14 RBC Hgb Hct RDW Plt Count Neutrophils # Lymphocytes # PT INR APTT ABG pH 7.49 H ABG pCO2 33 L ABG pO2 59 L ABG HCO3 ABG Total CO2 26 H ABG O2 Saturation 91.4 L ABG Hematocrit ABG Sodium ABG Potassium ABG Ionized Calcium ABG Glucose ABG Lactic Acid Hemoglobin Sodium Potassium Chloride Carbon Dioxide BUN Creatinine Glucose POC Glucose (mg/dL) 122 H 113 H Hemoglobin A1c Calcium Ionized Calcium [place] Magnesium Total Bilirubin AST ALT Alkaline Phosphatase Troponin I Total Protein Albumin Triglycerides HDL Cholesterol Arterial Blood Potassium Arterial Blood Glucose Ur Specific [place] Urine Protein Crossmatch 06/03/17 06/03/17 06/03/17 22:20 22:20 23:03 RBC 2.76 L Hgb 7.9 L Hct 23.7 L RDW 15.6 H Plt Count 110 L Neutrophils # Lymphocytes # 0.6 L PT INR APTT ABG pH ABG pCO2 ABG pO2 ABG HCO3 ABG Total CO2 ABG O2 Saturation ABG Hematocrit ABG Sodium ABG Potassium ABG Ionized Calcium ABG Glucose ABG Lactic Acid Hemoglobin Sodium 146 H Potassium Chloride 111 H Carbon Dioxide BUN 18 H Creatinine 1.20 H Glucose 128 H POC Glucose (mg/dL) 124 H Hemoglobin A1c Calcium Ionized Calcium [place] Magnesium Total Bilirubin 1.4 H AST 91 H ALT Alkaline Phosphatase 35 L Troponin I Total Protein 4.8 L Albumin 3.2 L Triglycerides HDL Cholesterol Arterial Blood Potassium Arterial Blood Glucose Ur Specific [place] Urine Protein Crossmatch 06/03/17 06/04/17 06/04/17 23:58 00:58 02:06 RBC Hgb Hct RDW Plt Count Neutrophils # Lymphocytes # PT INR APTT ABG pH ABG pCO2 ABG pO2 ABG HCO3 ABG Total CO2 ABG O2 Saturation ABG Hematocrit ABG Sodium ABG Potassium ABG Ionized Calcium ABG Glucose ABG Lactic Acid Hemoglobin Sodium Potassium Chloride Carbon Dioxide BUN Creatinine Glucose POC Glucose (mg/dL) 122 H 119 H 130 H Hemoglobin A1c Calcium Ionized Calcium [place] Magnesium Total Bilirubin AST ALT Alkaline Phosphatase Troponin I Total Protein Albumin Triglycerides HDL Cholesterol Arterial Blood Potassium Arterial Blood Glucose Ur Specific [place] Urine Protein Crossmatch 06/04/17 06/04/17 06/04/17 02:59 04:03 04:10 RBC Hgb Hct RDW Plt Count Neutrophils # Lymphocytes # PT INR APTT ABG pH ABG pCO2 ABG pO2 ABG HCO3 ABG Total CO2 ABG O2 Saturation ABG Hematocrit ABG Sodium ABG Potassium ABG Ionized Calcium ABG Glucose ABG Lactic Acid Hemoglobin Sodium 147 H Potassium Chloride 112 H Carbon Dioxide BUN 20 H Creatinine 1.21 H Glucose 132 H POC Glucose (mg/dL) 134 H 136 H Hemoglobin A1c Calcium Ionized Calcium [place] Magnesium Total Bilirubin 1.4 H AST 95 H ALT 57 H Alkaline Phosphatase Troponin I Total Protein 4.7 L Albumin 3.0 L Triglycerides HDL Cholesterol Arterial Blood Potassium Arterial Blood Glucose Ur Specific [place] Urine Protein Crossmatch 06/04/17 06/04/17 06/04/17 04:10 04:10 04:41 RBC 2.71 L Hgb 7.7 L Hct 23.5 L RDW 15.8 H Plt Count 113 L Neutrophils # Lymphocytes # 0.6 L PT INR 1.2 H APTT ABG pH 7.48 H ABG pCO2 34 L ABG pO2 62 L ABG HCO3 ABG Total CO2 26 H ABG O2 Saturation 92.1 L ABG Hematocrit ABG Sodium ABG Potassium ABG Ionized Calcium ABG Glucose ABG Lactic Acid Hemoglobin Sodium Potassium Chloride Carbon Dioxide BUN Creatinine Glucose POC Glucose (mg/dL) Hemoglobin A1c Calcium Ionized Calcium [place] Magnesium Total Bilirubin AST ALT Alkaline Phosphatase Troponin I Total Protein Albumin Triglycerides HDL Cholesterol Arterial Blood Potassium Arterial Blood Glucose Ur Specific [place] Urine Protein Crossmatch 06/04/17 06/04/17 06/04/17 04:45 06:01 07:09 RBC Hgb Hct RDW Plt Count Neutrophils # Lymphocytes # PT INR APTT ABG pH ABG pCO2 ABG pO2 ABG HCO3 ABG Total CO2 ABG O2 Saturation ABG Hematocrit ABG Sodium ABG Potassium ABG Ionized Calcium ABG Glucose ABG Lactic Acid Hemoglobin Sodium Potassium Chloride Carbon Dioxide BUN Creatinine Glucose POC Glucose (mg/dL) 113 H 131 H 133 H Hemoglobin A1c Calcium Ionized Calcium [place] Magnesium Total Bilirubin AST ALT Alkaline Phosphatase Troponin I Total Protein Albumin Triglycerides HDL Cholesterol Arterial Blood Potassium Arterial Blood Glucose Ur Specific [place] Urine Protein Crossmatch 06/04/17 06/04/17 06/04/17 08:55 10:23 11:15 RBC 2.68 L Hgb 7.7 L Hct 23.3 L RDW 15.7 H Plt Count 133 L Neutrophils # Lymphocytes # PT INR APTT ABG pH ABG pCO2 ABG pO2 ABG HCO3 ABG Total CO2 ABG O2 Saturation ABG Hematocrit ABG Sodium ABG Potassium ABG Ionized Calcium ABG Glucose ABG Lactic Acid Hemoglobin Sodium Potassium Chloride Carbon Dioxide BUN Creatinine Glucose POC Glucose (mg/dL) 130 H 130 H Hemoglobin A1c Calcium Ionized Calcium [place] Magnesium Total Bilirubin AST ALT Alkaline Phosphatase Troponin I Total Protein Albumin Triglycerides HDL Cholesterol Arterial Blood Potassium Arterial Blood Glucose Ur Specific [place] Urine Protein Crossmatch 06/04/17 06/04/17 06/04/17 12:14 13:21 15:17 RBC Hgb Hct RDW Plt Count Neutrophils # Lymphocytes # PT INR APTT ABG pH ABG pCO2 ABG pO2 ABG HCO3 ABG Total CO2 ABG O2 Saturation ABG Hematocrit ABG Sodium ABG Potassium ABG Ionized Calcium ABG Glucose ABG Lactic Acid Hemoglobin Sodium Potassium Chloride Carbon Dioxide BUN Creatinine Glucose POC Glucose (mg/dL) 125 H 116 H 116 H Hemoglobin A1c Calcium Ionized Calcium [place] Magnesium Total Bilirubin AST ALT Alkaline Phosphatase Troponin I Total Protein Albumin Triglycerides HDL Cholesterol Arterial Blood Potassium Arterial Blood Glucose Ur Specific [place] Urine Protein Crossmatch 06/04/17 06/04/17 06/04/17 18:32 20:25 21:59 RBC Hgb Hct RDW Plt Count Neutrophils # Lymphocytes # PT INR APTT ABG pH ABG pCO2 ABG pO2 ABG HCO3 ABG Total CO2 ABG O2 Saturation ABG Hematocrit ABG Sodium ABG Potassium ABG Ionized Calcium ABG Glucose ABG Lactic Acid Hemoglobin Sodium Potassium Chloride Carbon Dioxide BUN Creatinine Glucose POC Glucose (mg/dL) 119 H 114 H 113 H Hemoglobin A1c Calcium Ionized Calcium [place] Magnesium Total Bilirubin AST ALT Alkaline Phosphatase Troponin I Total Protein Albumin Triglycerides HDL Cholesterol Arterial Blood Potassium Arterial Blood Glucose Ur Specific [place] Urine Protein Crossmatch 06/04/17 06/05/17 06/05/17 23:13 00:04 01:35 RBC Hgb Hct RDW Plt Count Neutrophils # Lymphocytes # PT INR APTT ABG pH ABG pCO2 ABG pO2 ABG HCO3 ABG Total CO2 ABG O2 Saturation ABG Hematocrit ABG Sodium ABG Potassium ABG Ionized Calcium ABG Glucose ABG Lactic Acid Hemoglobin Sodium Potassium Chloride Carbon Dioxide BUN Creatinine Glucose POC Glucose (mg/dL) 152 H 174 H 165 H Hemoglobin A1c Calcium Ionized Calcium [place] Magnesium Total Bilirubin AST ALT Alkaline Phosphatase Troponin I Total Protein Albumin Triglycerides HDL Cholesterol Arterial Blood Potassium Arterial Blood Glucose Ur Specific [place] Urine Protein Crossmatch 06/05/17 06/05/17 06/05/17 03:06 04:15 04:15 RBC 2.75 L Hgb 7.8 L Hct 24.3 L RDW 15.7 H Plt Count 122 L Neutrophils # Lymphocytes # PT INR APTT ABG pH ABG pCO2 ABG pO2 ABG HCO3 ABG Total CO2 ABG O2 Saturation ABG Hematocrit ABG Sodium ABG Potassium ABG Ionized Calcium ABG Glucose ABG Lactic Acid Hemoglobin Sodium Potassium Chloride 109 H Carbon Dioxide BUN 28 H Creatinine 1.20 H Glucose 142 H POC Glucose (mg/dL) 128 H Hemoglobin A1c Calcium Ionized Calcium [place] Magnesium Total Bilirubin AST 107 H ALT 87 H Alkaline Phosphatase Troponin I Total Protein 4.7 L Albumin 2.8 L Triglycerides HDL Cholesterol Arterial Blood Potassium Arterial Blood Glucose Ur Specific [place] Urine Protein Crossmatch 06/05/17 06/05/17 06/05/17 04:22 04:59 06:24 RBC Hgb Hct RDW Plt Count Neutrophils # Lymphocytes # PT INR APTT ABG pH ABG pCO2 ABG pO2 ABG HCO3 ABG Total CO2 ABG O2 Saturation ABG Hematocrit ABG Sodium ABG Potassium ABG Ionized Calcium ABG Glucose ABG Lactic Acid Hemoglobin Sodium Potassium Chloride Carbon Dioxide BUN Creatinine Glucose POC Glucose (mg/dL) 123 H 171 H 173 H Hemoglobin A1c Calcium Ionized Calcium [place] Magnesium Total Bilirubin AST ALT Alkaline Phosphatase Troponin I Total Protein Albumin Triglycerides HDL Cholesterol Arterial Blood Potassium Arterial Blood Glucose Ur Specific [place] Urine Protein Crossmatch 06/05/17 06/05/17 06/05/17 07:06 08:09 08:19 RBC Hgb Hct RDW Plt Count Neutrophils # Lymphocytes # PT INR APTT ABG pH 7.48 H ABG pCO2 33 L ABG pO2 73 L ABG HCO3 ABG Total CO2 26 H ABG O2 Saturation ABG Hematocrit ABG Sodium ABG Potassium ABG Ionized Calcium ABG Glucose ABG Lactic Acid Hemoglobin Sodium Potassium Chloride Carbon Dioxide BUN Creatinine Glucose POC Glucose (mg/dL) 169 H 164 H Hemoglobin A1c Calcium Ionized Calcium [place] Magnesium Total Bilirubin AST ALT Alkaline Phosphatase Troponin I Total Protein Albumin Triglycerides HDL Cholesterol Arterial Blood Potassium Arterial Blood Glucose Ur Specific [place] Urine Protein Crossmatch 06/05/17 06/05/17 06/05/17 09:06 10:44 11:00 RBC Hgb Hct RDW Plt Count Neutrophils # Lymphocytes # PT INR APTT ABG pH ABG pCO2 ABG pO2 ABG HCO3 ABG Total CO2 ABG O2 Saturation ABG Hematocrit ABG Sodium ABG Potassium ABG Ionized Calcium ABG Glucose ABG Lactic Acid Hemoglobin Sodium Potassium Chloride Carbon Dioxide BUN Creatinine Glucose POC Glucose (mg/dL) 168 H 163 H 161 H Hemoglobin A1c Calcium Ionized Calcium [place] Magnesium Total Bilirubin AST ALT Alkaline Phosphatase Troponin I Total Protein Albumin Triglycerides HDL Cholesterol Arterial Blood Potassium Arterial Blood Glucose Ur Specific [place] Urine Protein Crossmatch 06/05/17 06/05/17 06/05/17 13:11 14:03 16:23 RBC Hgb Hct RDW Plt Count Neutrophils # Lymphocytes # PT INR APTT ABG pH ABG pCO2 ABG pO2 ABG HCO3 ABG Total CO2 ABG O2 Saturation ABG Hematocrit ABG Sodium ABG Potassium ABG Ionized Calcium ABG Glucose ABG Lactic Acid Hemoglobin Sodium Potassium Chloride Carbon Dioxide BUN Creatinine Glucose POC Glucose (mg/dL) 186 H 166 H 188 H Hemoglobin A1c Calcium Ionized Calcium [place] Magnesium Total Bilirubin AST ALT Alkaline Phosphatase Troponin I Total Protein Albumin Triglycerides HDL Cholesterol Arterial Blood Potassium Arterial Blood Glucose Ur Specific [place] Urine Protein Crossmatch 06/05/17 06/05/17 06/05/17 18:13 19:04 20:09 RBC Hgb Hct RDW Plt Count Neutrophils # Lymphocytes # PT INR APTT ABG pH ABG pCO2 ABG pO2 ABG HCO3 ABG Total CO2 ABG O2 Saturation ABG Hematocrit ABG Sodium ABG Potassium ABG Ionized Calcium ABG Glucose ABG Lactic Acid Hemoglobin Sodium Potassium Chloride Carbon Dioxide BUN Creatinine Glucose POC Glucose (mg/dL) 182 H 176 H 155 H Hemoglobin A1c Calcium Ionized Calcium [place] Magnesium Total Bilirubin AST ALT Alkaline Phosphatase Troponin I Total Protein Albumin Triglycerides HDL Cholesterol Arterial Blood Potassium Arterial Blood Glucose Ur Specific [place] Urine Protein Crossmatch 06/05/17 06/05/17 06/05/17 21:23 22:03 23:07 RBC Hgb Hct RDW Plt Count Neutrophils # Lymphocytes # PT INR APTT ABG pH ABG pCO2 ABG pO2 ABG HCO3 ABG Total CO2 ABG O2 Saturation ABG Hematocrit ABG Sodium ABG Potassium ABG Ionized Calcium ABG Glucose ABG Lactic Acid Hemoglobin Sodium Potassium Chloride Carbon Dioxide BUN Creatinine Glucose POC Glucose (mg/dL) 156 H 147 H 146 H Hemoglobin A1c Calcium Ionized Calcium [place] Magnesium Total Bilirubin AST ALT Alkaline Phosphatase Troponin I Total Protein Albumin Triglycerides HDL Cholesterol Arterial Blood Potassium Arterial Blood Glucose Ur Specific [place] Urine Protein Crossmatch 06/06/17 06/06/17 06/06/17 00:05 01:07 02:04 RBC Hgb Hct RDW Plt Count Neutrophils # Lymphocytes # PT INR APTT ABG pH ABG pCO2 ABG pO2 ABG HCO3 ABG Total CO2 ABG O2 Saturation ABG Hematocrit ABG Sodium ABG Potassium ABG Ionized Calcium ABG Glucose ABG Lactic Acid Hemoglobin Sodium Potassium Chloride Carbon Dioxide BUN Creatinine Glucose POC Glucose (mg/dL) 144 H 127 H 156 H Hemoglobin A1c Calcium Ionized Calcium [place] Magnesium Total Bilirubin AST ALT Alkaline Phosphatase Troponin I Total Protein Albumin Triglycerides HDL Cholesterol Arterial Blood Potassium Arterial Blood Glucose Ur Specific [place] Urine Protein Crossmatch 06/06/17 06/06/17 06/06/17 03:00 05:07 05:10 RBC 2.63 L Hgb 7.4 L Hct 23.3 L RDW 15.6 H Plt Count 112 L Neutrophils # Lymphocytes # 0.8 L PT INR APTT ABG pH ABG pCO2 ABG pO2 ABG HCO3 ABG Total CO2 ABG O2 Saturation ABG Hematocrit ABG Sodium ABG Potassium ABG Ionized Calcium ABG Glucose ABG Lactic Acid Hemoglobin Sodium Potassium Chloride Carbon Dioxide BUN Creatinine Glucose POC Glucose (mg/dL) 165 H 128 H Hemoglobin A1c Calcium Ionized Calcium [place] Magnesium Total Bilirubin AST ALT Alkaline Phosphatase Troponin I Total Protein Albumin Triglycerides HDL Cholesterol Arterial Blood Potassium Arterial Blood Glucose Ur Specific [place] Urine Protein Crossmatch 06/06/17 06/06/17 06/06/17 05:10 06:07 07:08 RBC Hgb Hct RDW Plt Count Neutrophils # Lymphocytes # PT INR APTT ABG pH ABG pCO2 ABG pO2 ABG HCO3 ABG Total CO2 ABG O2 Saturation ABG Hematocrit ABG Sodium ABG Potassium ABG Ionized Calcium ABG Glucose ABG Lactic Acid Hemoglobin Sodium Potassium Chloride 108 H Carbon Dioxide BUN 35 H Creatinine 1.11 H Glucose 125 H POC Glucose (mg/dL) 156 H 174 H Hemoglobin A1c Calcium Ionized Calcium [place] 5.4 H Magnesium Total Bilirubin AST 80 H ALT 102 H Alkaline Phosphatase Troponin I Total Protein 4.8 L Albumin 2.6 L Triglycerides HDL Cholesterol Arterial Blood Potassium Arterial Blood Glucose Ur Specific [place] Urine Protein Crossmatch 06/06/17 06/06/17 06/06/17 07:48 08:06 09:04 RBC Hgb Hct RDW Plt Count Neutrophils # Lymphocytes # PT INR APTT ABG pH ABG pCO2 ABG pO2 71 L ABG HCO3 ABG Total CO2 27 H ABG O2 Saturation 93.4 L ABG Hematocrit ABG Sodium ABG Potassium ABG Ionized Calcium ABG Glucose ABG Lactic Acid Hemoglobin Sodium Potassium Chloride Carbon Dioxide BUN Creatinine Glucose POC Glucose (mg/dL) 164 H 115 H Hemoglobin A1c Calcium Ionized Calcium [place] Magnesium Total Bilirubin AST ALT Alkaline Phosphatase Troponin I Total Protein Albumin Triglycerides HDL Cholesterol Arterial Blood Potassium Arterial Blood Glucose Ur Specific [place] Urine Protein Crossmatch 06/06/17 06/06/17 06/06/17 10:11 11:02 12:03 RBC Hgb Hct RDW Plt Count Neutrophils # Lymphocytes # PT INR APTT ABG pH ABG pCO2 ABG pO2 ABG HCO3 ABG Total CO2 ABG O2 Saturation ABG Hematocrit ABG Sodium ABG Potassium ABG Ionized Calcium ABG Glucose ABG Lactic Acid Hemoglobin Sodium Potassium Chloride Carbon Dioxide BUN Creatinine Glucose POC Glucose (mg/dL) 191 H 181 H 151 H Hemoglobin A1c Calcium Ionized Calcium [place] Magnesium Total Bilirubin AST ALT Alkaline Phosphatase Troponin I Total Protein Albumin Triglycerides HDL Cholesterol Arterial Blood Potassium Arterial Blood Glucose Ur Specific [place] Urine Protein Crossmatch 06/06/17 06/06/17 06/06/17 13:04 13:53 14:50 RBC Hgb Hct RDW Plt Count Neutrophils # Lymphocytes # PT INR APTT ABG pH ABG pCO2 ABG pO2 ABG HCO3 ABG Total CO2 ABG O2 Saturation ABG Hematocrit ABG Sodium ABG Potassium ABG Ionized Calcium ABG Glucose ABG Lactic Acid Hemoglobin Sodium Potassium Chloride Carbon Dioxide BUN Creatinine Glucose POC Glucose (mg/dL) 131 H 119 H 124 H Hemoglobin A1c Calcium Ionized Calcium [place] Magnesium Total Bilirubin AST ALT Alkaline Phosphatase Troponin I Total Protein Albumin Triglycerides HDL Cholesterol Arterial Blood Potassium Arterial Blood Glucose Ur Specific [place] Urine Protein Crossmatch 06/06/17 06/06/17 06/06/17 15:10 15:55 17:10 RBC Hgb Hct RDW Plt Count Neutrophils # Lymphocytes # PT INR APTT ABG pH ABG pCO2 ABG pO2 ABG HCO3 ABG Total CO2 ABG O2 Saturation ABG Hematocrit ABG Sodium ABG Potassium ABG Ionized Calcium ABG Glucose ABG Lactic Acid Hemoglobin Sodium Potassium Chloride Carbon Dioxide BUN Creatinine Glucose POC Glucose (mg/dL) 117 H 116 H 116 H Hemoglobin A1c Calcium Ionized Calcium [place] Magnesium Total Bilirubin AST ALT Alkaline Phosphatase Troponin I Total Protein Albumin Triglycerides HDL Cholesterol Arterial Blood Potassium Arterial Blood Glucose Ur Specific [place] Urine Protein Crossmatch 06/06/17 06/06/17 06/06/17 18:07 18:52 20:00 RBC Hgb Hct RDW Plt Count Neutrophils # Lymphocytes # PT INR APTT ABG pH ABG pCO2 ABG pO2 ABG HCO3 ABG Total CO2 ABG O2 Saturation ABG Hematocrit ABG Sodium ABG Potassium ABG Ionized Calcium ABG Glucose ABG Lactic Acid Hemoglobin Sodium Potassium Chloride Carbon Dioxide BUN Creatinine Glucose POC Glucose (mg/dL) 110 H 127 H 122 H Hemoglobin A1c Calcium Ionized Calcium [place] Magnesium Total Bilirubin AST ALT Alkaline Phosphatase Troponin I Total Protein Albumin Triglycerides HDL Cholesterol Arterial Blood Potassium Arterial Blood Glucose Ur Specific [place] Urine Protein Crossmatch 06/06/17 06/06/17 06/06/17 21:10 22:12 23:06 RBC Hgb Hct RDW Plt Count Neutrophils # Lymphocytes # PT INR APTT ABG pH ABG pCO2 ABG pO2 ABG HCO3 ABG Total CO2 ABG O2 Saturation ABG Hematocrit ABG Sodium ABG Potassium ABG Ionized Calcium ABG Glucose ABG Lactic Acid Hemoglobin Sodium Potassium Chloride Carbon Dioxide BUN Creatinine Glucose POC Glucose (mg/dL) 125 H 112 H 132 H Hemoglobin A1c Calcium Ionized Calcium [place] Magnesium Total Bilirubin AST ALT Alkaline Phosphatase Troponin I Total Protein Albumin Triglycerides HDL Cholesterol Arterial Blood Potassium Arterial Blood Glucose Ur Specific [place] Urine Protein Crossmatch 06/06/17 06/07/17 06/07/17 23:50 00:59 02:02 RBC Hgb Hct RDW Plt Count Neutrophils # Lymphocytes # PT INR APTT ABG pH ABG pCO2 ABG pO2 ABG HCO3 ABG Total CO2 ABG O2 Saturation ABG Hematocrit ABG Sodium ABG Potassium ABG Ionized Calcium ABG Glucose ABG Lactic Acid Hemoglobin Sodium Potassium Chloride Carbon Dioxide BUN Creatinine Glucose POC Glucose (mg/dL) 112 H 148 H 157 H Hemoglobin A1c Calcium Ionized Calcium [place] Magnesium Total Bilirubin AST ALT Alkaline Phosphatase Troponin I Total Protein Albumin Triglycerides HDL Cholesterol Arterial Blood Potassium Arterial Blood Glucose Ur Specific [place] Urine Protein Crossmatch 06/07/17 06/07/17 06/07/17 03:03 04:05 04:05 RBC 2.44 L Hgb 6.9 L* Hct 21.4 L RDW 15.6 H Plt Count 107 L Neutrophils # Lymphocytes # PT INR APTT ABG pH ABG pCO2 ABG pO2 ABG HCO3 ABG Total CO2 ABG O2 Saturation ABG Hematocrit ABG Sodium ABG Potassium ABG Ionized Calcium ABG Glucose ABG Lactic Acid Hemoglobin Sodium Potassium Chloride Carbon Dioxide BUN 37 H Creatinine 1.10 H Glucose 110 H POC Glucose (mg/dL) 146 H Hemoglobin A1c Calcium Ionized Calcium [place] Magnesium 2.4 H Total Bilirubin AST 75 H ALT 110 H Alkaline Phosphatase Troponin I Total Protein 4.7 L Albumin 2.6 L Triglycerides HDL Cholesterol Arterial Blood Potassium Arterial Blood Glucose Ur Specific [place] Urine Protein Crossmatch 06/07/17 06/07/17 06/07/17 04:05 04:07 05:12 RBC Hgb Hct RDW Plt Count Neutrophils # Lymphocytes # PT INR APTT 20.7 L ABG pH ABG pCO2 ABG pO2 ABG HCO3 ABG Total CO2 ABG O2 Saturation ABG Hematocrit ABG Sodium ABG Potassium ABG Ionized Calcium ABG Glucose ABG Lactic Acid Hemoglobin Sodium Potassium Chloride Carbon Dioxide BUN Creatinine Glucose POC Glucose (mg/dL) 118 H 119 H Hemoglobin A1c Calcium Ionized Calcium [place] Magnesium Total Bilirubin AST ALT Alkaline Phosphatase Troponin I Total Protein Albumin Triglycerides HDL Cholesterol Arterial Blood Potassium Arterial Blood Glucose Ur Specific [place] Urine Protein Crossmatch 06/07/17 06/07/17 06/07/17 06:05 06:05 06:49 RBC Hgb Hct RDW Plt Count Neutrophils # Lymphocytes # PT INR APTT ABG pH ABG pCO2 ABG pO2 ABG HCO3 ABG Total CO2 ABG O2 Saturation ABG Hematocrit ABG Sodium ABG Potassium ABG Ionized Calcium ABG Glucose ABG Lactic Acid Hemoglobin Sodium Potassium Chloride Carbon Dioxide BUN Creatinine Glucose POC Glucose (mg/dL) 127 H 125 H Hemoglobin A1c Calcium Ionized Calcium [place] Magnesium Total Bilirubin AST ALT Alkaline Phosphatase Troponin I Total Protein Albumin Triglycerides HDL Cholesterol Arterial Blood Potassium Arterial Blood Glucose Ur Specific [place] Urine Protein Crossmatch See Detail 06/07/17 06/07/17 06/07/17 06:57 07:58 08:09 RBC Hgb Hct RDW Plt Count Neutrophils # Lymphocytes # PT INR APTT ABG pH 7.46 H ABG pCO2 ABG pO2 75 L ABG HCO3 26 H ABG Total CO2 27 H ABG O2 Saturation ABG Hematocrit ABG Sodium ABG Potassium ABG Ionized Calcium ABG Glucose ABG Lactic Acid Hemoglobin Sodium Potassium Chloride Carbon Dioxide BUN Creatinine Glucose POC Glucose (mg/dL) 110 H 140 H Hemoglobin A1c Calcium Ionized Calcium [place] Magnesium Total Bilirubin AST ALT Alkaline Phosphatase Troponin I Total Protein Albumin Triglycerides HDL Cholesterol Arterial Blood Potassium Arterial Blood Glucose Ur Specific [place] Urine Protein Crossmatch 06/07/17 06/07/17 06/07/17 09:05 10:57 12:52 RBC Hgb Hct RDW Plt Count Neutrophils # Lymphocytes # PT INR APTT ABG pH ABG pCO2 ABG pO2 ABG HCO3 ABG Total CO2 ABG O2 Saturation ABG Hematocrit ABG Sodium ABG Potassium ABG Ionized Calcium ABG Glucose ABG Lactic Acid Hemoglobin Sodium Potassium Chloride Carbon Dioxide BUN Creatinine Glucose POC Glucose (mg/dL) 131 H 127 H 114 H Hemoglobin A1c Calcium Ionized Calcium [place] Magnesium Total Bilirubin AST ALT Alkaline Phosphatase Troponin I Total Protein Albumin Triglycerides HDL Cholesterol Arterial Blood Potassium Arterial Blood Glucose Ur Specific [place] Urine Protein Crossmatch 06/07/17 06/07/17 06/07/17 14:15 15:06 17:01 RBC Hgb Hct RDW Plt Count Neutrophils # Lymphocytes # PT INR APTT ABG pH ABG pCO2 ABG pO2 ABG HCO3 ABG Total CO2 ABG O2 Saturation ABG Hematocrit ABG Sodium ABG Potassium ABG Ionized Calcium ABG Glucose ABG Lactic Acid Hemoglobin Sodium Potassium Chloride Carbon Dioxide BUN Creatinine Glucose POC Glucose (mg/dL) 115 H 116 H 117 H Hemoglobin A1c Calcium Ionized Calcium [place] Magnesium Total Bilirubin AST ALT Alkaline Phosphatase Troponin I Total Protein Albumin Triglycerides HDL Cholesterol Arterial Blood Potassium Arterial Blood Glucose Ur Specific [place] Urine Protein Crossmatch 06/07/17 06/07/17 06/07/17 18:07 20:12 21:00 RBC Hgb Hct RDW Plt Count Neutrophils # Lymphocytes # PT INR APTT ABG pH ABG pCO2 ABG pO2 ABG HCO3 ABG Total CO2 ABG O2 Saturation ABG Hematocrit ABG Sodium ABG Potassium ABG Ionized Calcium ABG Glucose ABG Lactic Acid Hemoglobin Sodium Potassium Chloride Carbon Dioxide BUN Creatinine Glucose POC Glucose (mg/dL) 115 H 104 H 107 H Hemoglobin A1c Calcium Ionized Calcium [place] Magnesium Total Bilirubin AST ALT Alkaline Phosphatase Troponin I Total Protein Albumin Triglycerides HDL Cholesterol Arterial Blood Potassium Arterial Blood Glucose Ur Specific [place] Urine Protein Crossmatch 06/07/17 06/08/17 06/08/17 22:00 02:08 04:23 RBC Hgb Hct RDW Plt Count Neutrophils # Lymphocytes # PT INR APTT ABG pH ABG pCO2 ABG pO2 ABG HCO3 ABG Total CO2 ABG O2 Saturation ABG Hematocrit ABG Sodium ABG Potassium ABG Ionized Calcium ABG Glucose ABG Lactic Acid Hemoglobin Sodium Potassium Chloride Carbon Dioxide BUN Creatinine Glucose POC Glucose (mg/dL) 126 H 110 H 105 H Hemoglobin A1c Calcium Ionized Calcium [place] Magnesium Total Bilirubin AST ALT Alkaline Phosphatase Troponin I Total Protein Albumin Triglycerides HDL Cholesterol Arterial Blood Potassium Arterial Blood Glucose Ur Specific [place] Urine Protein Crossmatch 06/08/17 06/08/17 06/08/17 04:30 04:30 06:03 RBC 2.81 L Hgb 7.7 L Hct 24.8 L RDW 15.6 H Plt Count 128 L Neutrophils # Lymphocytes # 0.9 L PT INR APTT ABG pH ABG pCO2 ABG pO2 ABG HCO3 ABG Total CO2 ABG O2 Saturation ABG Hematocrit ABG Sodium ABG Potassium ABG Ionized Calcium ABG Glucose ABG Lactic Acid Hemoglobin Sodium Potassium Chloride 109 H Carbon Dioxide BUN 37 H Creatinine Glucose 104 H POC Glucose (mg/dL) 111 H Hemoglobin A1c Calcium Ionized Calcium [place] Magnesium 2.5 H Total Bilirubin AST 43 H ALT 87 H Alkaline Phosphatase Troponin I Total Protein 5.0 L Albumin 2.6 L Triglycerides HDL Cholesterol Arterial Blood Potassium Arterial Blood Glucose Ur Specific [place] Urine Protein Crossmatch 03/16/18 03/16/18 03/16/18 07:10 09:01 10:10 RBC Hgb Hct RDW Plt Count Neutrophils # Lymphocytes # PT INR APTT ABG pH 7.47 H ABG pCO2 ABG pO2 79 L ABG HCO3 27 H ABG Total CO2 28 H ABG O2 Saturation ABG Hematocrit ABG Sodium ABG Potassium ABG Ionized Calcium ABG Glucose ABG Lactic Acid Hemoglobin Sodium Potassium Chloride Carbon Dioxide BUN Creatinine Glucose POC Glucose (mg/dL) 131 H 121 H Hemoglobin A1c Calcium Ionized Calcium [place] Magnesium Total Bilirubin AST ALT Alkaline Phosphatase Troponin I Total Protein Albumin Triglycerides HDL Cholesterol Arterial Blood Potassium Arterial Blood Glucose Ur Specific [place] Urine Protein Crossmatch 06/08/17 06/08/17 06/08/17 11:02 13:06 13:54 RBC Hgb Hct RDW Plt Count Neutrophils # Lymphocytes # PT INR APTT ABG pH ABG pCO2 ABG pO2 ABG HCO3 ABG Total CO2 ABG O2 Saturation ABG Hematocrit ABG Sodium ABG Potassium ABG Ionized Calcium ABG Glucose ABG Lactic Acid Hemoglobin Sodium Potassium Chloride Carbon Dioxide BUN Creatinine Glucose POC Glucose (mg/dL) 126 H 143 H 127 H Hemoglobin A1c Calcium Ionized Calcium [place] Magnesium Total Bilirubin AST ALT Alkaline Phosphatase Troponin I Total Protein Albumin Triglycerides HDL Cholesterol Arterial Blood Potassium Arterial Blood Glucose Ur Specific [place] Urine Protein Crossmatch 06/08/17 06/08/17 06/08/17 14:58 17:19 17:50 RBC Hgb Hct RDW Plt Count Neutrophils # Lymphocytes # PT INR APTT ABG pH ABG pCO2 ABG pO2 ABG HCO3 ABG Total CO2 ABG O2 Saturation ABG Hematocrit ABG Sodium ABG Potassium ABG Ionized Calcium ABG Glucose ABG Lactic Acid Hemoglobin Sodium Potassium Chloride 108 H Carbon Dioxide BUN Creatinine Glucose POC Glucose (mg/dL) 120 H 146 H Hemoglobin A1c Calcium Ionized Calcium [place] Magnesium Total Bilirubin AST ALT Alkaline Phosphatase Troponin I Total Protein Albumin Triglycerides HDL Cholesterol Arterial Blood Potassium Arterial Blood Glucose Ur Specific [place] Urine Protein Crossmatch 06/08/17 06/08/17 06/09/17 18:52 20:30 00:06 RBC Hgb Hct RDW Plt Count Neutrophils # Lymphocytes # PT INR APTT ABG pH ABG pCO2 ABG pO2 ABG HCO3 ABG Total CO2 ABG O2 Saturation ABG Hematocrit ABG Sodium ABG Potassium ABG Ionized Calcium ABG Glucose ABG Lactic Acid Hemoglobin Sodium Potassium Chloride Carbon Dioxide BUN Creatinine Glucose POC Glucose (mg/dL) 116 H 118 H 111 H Hemoglobin A1c Calcium Ionized Calcium [place] Magnesium Total Bilirubin AST ALT Alkaline Phosphatase Troponin I Total Protein Albumin Triglycerides HDL Cholesterol Arterial Blood Potassium Arterial Blood Glucose Ur Specific [place] Urine Protein Crossmatch 06/09/17 06/09/17 06/09/17 04:00 04:00 06:01 RBC 2.69 L Hgb 7.6 L Hct 23.9 L RDW Plt Count 149 L Neutrophils # Lymphocytes # 0.9 L PT INR APTT ABG pH ABG pCO2 ABG pO2 ABG HCO3 ABG Total CO2 ABG O2 Saturation ABG Hematocrit ABG Sodium ABG Potassium ABG Ionized Calcium ABG Glucose ABG Lactic Acid Hemoglobin Sodium 146 H Potassium Chloride 109 H Carbon Dioxide BUN 34 H Creatinine Glucose 71 L POC Glucose (mg/dL) 139 H Hemoglobin A1c Calcium 8.3 L Ionized Calcium [place] Magnesium 2.5 H Total Bilirubin AST ALT 65 H Alkaline Phosphatase Troponin I Total Protein 5.0 L Albumin 2.5 L Triglycerides HDL Cholesterol Arterial Blood Potassium Arterial Blood Glucose Ur Specific [place] Urine Protein Crossmatch 06/09/17 06/09/17 06/09/17 07:25 07:45 09:02 RBC Hgb Hct RDW Plt Count Neutrophils # Lymphocytes # PT INR APTT ABG pH 7.50 H ABG pCO2 ABG pO2 81 L ABG HCO3 26 H ABG Total CO2 27 H ABG O2 Saturation ABG Hematocrit ABG Sodium ABG Potassium ABG Ionized Calcium ABG Glucose ABG Lactic Acid Hemoglobin Sodium Potassium Chloride Carbon Dioxide BUN Creatinine Glucose POC Glucose (mg/dL) 139 H 142 H Hemoglobin A1c Calcium Ionized Calcium [place] Magnesium Total Bilirubin AST ALT Alkaline Phosphatase Troponin I Total Protein Albumin Triglycerides HDL Cholesterol Arterial Blood Potassium Arterial Blood Glucose Ur Specific [place] Urine Protein Crossmatch 06/09/17 06/09/17 06/09/17 10:02 10:54 12:04 RBC Hgb Hct RDW Plt Count Neutrophils # Lymphocytes # PT INR APTT ABG pH ABG pCO2 ABG pO2 ABG HCO3 ABG Total CO2 ABG O2 Saturation ABG Hematocrit ABG Sodium ABG Potassium ABG Ionized Calcium ABG Glucose ABG Lactic Acid Hemoglobin Sodium Potassium Chloride Carbon Dioxide BUN Creatinine Glucose POC Glucose (mg/dL) 124 H 106 H 108 H Hemoglobin A1c Calcium Ionized Calcium [place] Magnesium Total Bilirubin AST ALT Alkaline Phosphatase Troponin I Total Protein Albumin Triglycerides HDL Cholesterol Arterial Blood Potassium Arterial Blood Glucose Ur Specific [place] Urine Protein Crossmatch 06/09/17 06/09/17 06/09/17 12:54 14:05 14:43 RBC Hgb Hct RDW Plt Count Neutrophils # Lymphocytes # PT INR APTT ABG pH ABG pCO2 ABG pO2 ABG HCO3 ABG Total CO2 ABG O2 Saturation ABG Hematocrit ABG Sodium ABG Potassium ABG Ionized Calcium ABG Glucose ABG Lactic Acid Hemoglobin Sodium Potassium Chloride Carbon Dioxide BUN Creatinine Glucose POC Glucose (mg/dL) 105 H 134 H 117 H Hemoglobin A1c Calcium Ionized Calcium [place] Magnesium Total Bilirubin AST ALT Alkaline Phosphatase Troponin I Total Protein Albumin Triglycerides HDL Cholesterol Arterial Blood Potassium Arterial Blood Glucose Ur Specific [place] Urine Protein Crossmatch 06/09/17 06/09/17 06/09/17 16:17 17:22 18:41 RBC Hgb Hct RDW Plt Count Neutrophils # Lymphocytes # PT INR APTT ABG pH ABG pCO2 ABG pO2 ABG HCO3 ABG Total CO2 ABG O2 Saturation ABG Hematocrit ABG Sodium ABG Potassium ABG Ionized Calcium ABG Glucose ABG Lactic Acid Hemoglobin Sodium Potassium Chloride Carbon Dioxide BUN Creatinine Glucose POC Glucose (mg/dL) 106 H 128 H 122 H Hemoglobin A1c Calcium Ionized Calcium [place] Magnesium Total Bilirubin AST ALT Alkaline Phosphatase Troponin I Total Protein Albumin Triglycerides HDL Cholesterol Arterial Blood Potassium Arterial Blood Glucose Ur Specific [place] Urine Protein Crossmatch 06/09/17 21:13 RBC Hgb Hct RDW Plt Count Neutrophils # Lymphocytes # PT INR APTT ABG pH ABG pCO2 ABG pO2 ABG HCO3 ABG Total CO2 ABG O2 Saturation ABG Hematocrit ABG Sodium ABG Potassium ABG Ionized Calcium ABG Glucose ABG Lactic Acid Hemoglobin Sodium Potassium Chloride Carbon Dioxide BUN Creatinine Glucose POC Glucose (mg/dL) 110 H Hemoglobin A1c Calcium Ionized Calcium [place] Magnesium Total Bilirubin AST ALT Alkaline Phosphatase Troponin I Total Protein Albumin Triglycerides HDL Cholesterol Arterial Blood Potassium Arterial Blood Glucose Ur Specific [place] Urine Protein Crossmatch Assessment and Plan (1) Electrolyte imbalance Current Visit: Yes Status: Acute Code(s): E87.8 - OTH DISORDERS OF ELECTROLYTE AND FLUID BALANCE, NEC SNOMED Code(s): 577030990 (2) Altered mental status Current Visit: Yes Status: Acute Code(s): R41.82 - ALTERED MENTAL STATUS, UNSPECIFIED SNOMED Code(s): 145528841 (3) Morbid obesity with BMI of 40.0-44.9, adult Current Visit: Yes Status: Chronic Code(s): E66.01 - MORBID (SEVERE) OBESITY DUE TO EXCESS CALORIES; Z68.41 - BODY MASS INDEX (BMI) 40.0-44.9, ADULT SNOMED Code(s): 774322772 (4) History of sudden cardiac arrest successfully resuscitated Current Visit: Yes Status: Acute Code(s): Z86.74 - PERSONAL HISTORY OF SUDDEN CARDIAC ARREST SNOMED Code(s): 232294955 Plan: Altered mental status likely secondary to cardiac arrest with electrolyte derangement. Diagnostic workup to include: EEG pending Repeat CT brain pending to investigate any new or changed underlying etiology. Neurochecks as ordered Treatment recommendations. Continue to replace electrolytes per protocol I have discussed the plan of care with the physician prior to implementation and he agrees with the plan as implemented.
[2017-06-10] MEDS: MORPHINE ORAL SOLN 10 MG/5 ML CUP PO PRN (00:59)
[2017-06-10] MEDS: MILRINONE-D5W PMX 20 MG in DEXTROSE/WATER 1 100ML.BAG IV SCH ×2 (02:00→20:40)
[2017-06-10] MEDS: PROPOFOL 1,000 MG in EMPTY BAG 1 BAG IV SCH ×3 (02:40→20:42)
[2017-06-10 04:37] LABS: Basophils % (A) 0 %; Eosinophils # (A) 0.1 k/uL (0-0.7); Eosinophils % (A) 1 %; HCT 24.2 % (34.0-46.0); HGB 7.5 gm/dL (11.4-16.0); Hypochromasia Slight; Lymphocytes # (A) 0.7 k/uL (1.0-4.8); Lymphocytes % (A) 8 %; MCH 27.7 pg (25.0-35.0); MCHC 31.1 g/dL (31.0-37.0); MCV 89.2 fL (80.0-100.0); Mean Platelet Volume 10.1; Monocytes # (A) 0.3 k/uL (0-1.0); Monocytes % (A) 4 %; Neutrophils # (A) 7.2 k/uL (1.3-7.7); Neutrophils % (A) 85 %; Platelet Count 159 k/uL (150-450); RBC 2.72 m/uL (3.80-5.40); RDW 15.7 % (11.5-15.5); WBC 8.4 k/uL (3.8-10.6)
[2017-06-10 04:45] LABS: Glucose,Whole Blood 137 mg/dL (75-99)
[2017-06-10 04:45] LABS: Glucose,Whole Blood 90 mg/dL (75-99)
[2017-06-10 04:45] LABS: Glucose,Whole Blood 111 mg/dL (75-99)
[2017-06-10 04:51] LABS: ALT 53 U/L (9-52); AST 27 U/L (14-36); Albumin 2.5 g/dL (3.5-5.0); Alkaline Phosphatase 115 U/L (38-126); Anion Gap 9 mmol/L; Blood Urea Nitrogen 36 mg/dL (7-17); Calcium 8.4 mg/dL (8.4-10.2); Carbon Dioxide 27 mmol/L (22-30); Chloride 109 mmol/L (98-107); Glucose 110 mg/dL (74-99); Magnesium 2.6 mg/dL (1.6-2.3); Phosphorus 3.2 mg/dL (2.5-4.5); Potassium 3.8 mmol/L (3.5-5.1); Sodium 145 mmol/L (137-145); Total Bilirubin 0.6 mg/dL (0.2-1.3); Total Protein 5.1 g/dL (6.3-8.2)
[2017-06-10 06:22] LABS: Glucose,Whole Blood 78 mg/dL (75-99)
--- NOTE | 2017-06-10 06:45 | XR ---
EXAMINATION TYPE: XR chest 1V portable DATE OF EXAM: 06/10/2017 HISTORY: post cardiac surgery. REFERENCE: Previous study dated 06/09/2017. FINDINGS: There has been a midline sternotomy. The patient is ET tube and NG tube remain in place, un changed in appearance. A left basilic PICC line is in place. Its tip is in the right atrium. There is vascular congestion and interstitial change. This may have improved slightly. There is left basilar airspace disease. There are small, bilateral effusions, greater on the left than the right. IMPRESSION: SLIGHT IMPROVEMENT IN THE PATIENT'S CONGESTIVE HEART FAILURE.
[2017-06-10 07:13] LABS: Glucose,Whole Blood 118 mg/dL (75-99)
[2017-06-10] MEDS: INSULIN REGULAR 100 UNIT in SODIUM CHLORIDE 0.9% 100 ML IV SCH ×2 (07:13→23:21)
[2017-06-10] MEDS ORDERED: Potassium Replacement Protocol 1 EACH MISC MISCELLANE PRN (07:21)
[2017-06-10 07:52] LABS: ABG HCO3 27 mmol/L (21-25); ABG PCO2 36 mmHg (35-45); ABG PH 7.48 (7.35-7.45); ABG PO2 67 mmHg (83-108); ABG TCO2 28 mmol/L (19-24)
[2017-06-10 07:58] LABS: Glucose,Whole Blood 112 mg/dL (75-99)
[2017-06-10] MEDS ORDERED: POTASSIUM BICARBONATE/CIT AC 20 MEQ TABLET.EFF NG-TUBE SCH ×2 (08:00)
[2017-06-10] MEDS: POTASSIUM BICARBONATE/CIT AC 20 MEQ TABLET.EFF PO SCH (08:30)
[2017-06-10] MEDS: MEROPENEM 1 GM in SODIUM CHLORIDE 0.9% 100 ML IVPB SCH ×2 (08:30→17:43)
[2017-06-10] MEDS: CHLORHEXIDINE GLUCONATE 15 ML CUP MUCOUS MEM SCH ×2 (08:30→23:23)
[2017-06-10] MEDS: ASPIRIN 81 MG PO SCH (08:31)
[2017-06-10] MEDS: QUEtiapine 25 MG TAB PO SCH ×2 (08:31→23:24)
[2017-06-10] MEDS: HEPARIN SODIUM,PORCINE 5,000 UNIT/ML 1 ML VIAL SQ SCH ×3 (08:31→23:23)
[2017-06-10] MEDS: FERROUS SULFATE 325 MG TAB PO SCH ×2 (08:31→17:44)
[2017-06-10] MEDS: METOPROLOL TARTRATE 50 MG TAB PO SCH ×3 (08:31→23:23)
[2017-06-10] MEDS: ASCORBIC ACID 500 MG TAB PO SCH ×2 (08:31→23:23)
[2017-06-10] MEDS: AMIODARONE 200 MG TAB PO SCH ×2 (08:31→23:23)
[2017-06-10] MEDS: ATORVASTATIN 40 MG TAB PO SCH (08:31)
[2017-06-10] MEDS: PANTOPRAZOLE 40 MG/10 ML VIAL IVP SCH (08:32)
--- NOTE | 2017-06-10 08:34 | P.PN ---
Subjective Progress Note Date: 06/10/17 Principal diagnosis: Diffuse severe calcific coronary artery disease. Non-ST elevation myocardial infarction. Preserved left ventricular function with preoperative ejection fraction of 50-55%. Mild mitral valve regurgitation. Status post ventricular fibrillation arrest. Previous medical history of hypertension, hyperlipidemia, insulin dependent diabetes mellitus with current hemoglobin A1c 9.4%, previous myocardial infarction with stent placement to the RCA in 2010, obesity, obstructive sleep apnea, recent pneumonia in March 2017, previous tobacco dependence with preoperative FEV1 77% of predicted and preoperative arterial blood gas on room air pH 7.46, pCO2 40, pO2 68, HCO3 28, right breast cancer with lumpectomy and radiation, and family history of premature coronary artery disease. POD #8 urgent coronary artery bypass grafting 4 using the left internal mammary artery to the left anterior descending artery, reverse saphenous vein graft from the aorta to the distal posterior descending artery, reverse saphenous vein graft from the aorta to the ramus intermedius artery, reverse saphenous vein graft from the aorta to the second diagonal artery. Endoscopic harvesting of the right greater saphenous vein. Intraoperative transesophageal echocardiogram and epi-aortic scanning. Intraoperative graft flow measurements using the [employer] system. Status post preoperative ventricular fibrillation arrest with successful resuscitation. Postoperative prolonged mechanical ventilation secondary to hemodynamic instability, an unexpected but potential outcome of surgery. Postoperative atrial fibrillation, an unexpected but potential outcome of surgery. POD #4 bronchoscopy per pulmonology, bronchial washings positive for Enterobacter cloacae Postoperative acute blood loss anemia, a potential expected outcome of surgery. Patient currently laying in bed in no acute distress on mechanical ventilation. Remains on Primacor. Patient had CT of the brain Sunday which didn't demonstrate any acute changes, she is to go for another head CT this morning per neurology. Patient did have another episode of A. fib RVR last night with amiodarone IV bolus and extra dose of Lopressor given per cardiology. Objective - Vital Signs Vital signs: Vital Signs Temp 99.0 F 06/10/17 04:00 Pulse 85 06/10/17 07:00 Resp 30 H 06/10/17 07:00 BP 144/69 06/09/17 10:00 Pulse Ox 94 L 06/10/17 07:00 Intake & Output 06/09/17 06/10/17 06/10/17 18:59 06:59 18:59 Intake Total 4859.426 2852.782 248.635 Output Total 2552 1190 160 Balance -1001.170 605.782 88.635 Weight 124 kg Intake: IV 427.3 448 58 0.9 240 240 40 0.9 for pressure 45 108 18 Meropenem 1 gm In Sodium 100 100 Chloride 0.9% 100 ml @ 200 mls/hr IVPB Q8HR [facility] Rx#:[id number] primacor 42.3 Intake, IV Titration 205.530 163.782 82.635 Amount Insulin Regular 100 unit 101.000 61.500 0.175 In Sodium Chloride 0.9% 100 ml @ Per Protocol IV .Q0M [facility] Rx#:[id number] Milrinone-D5w Pmx 20 mg 2.282 In Dextrose/Water 1 100ml .bag @ Per Protocol IV . Q0M [facility] Rx#:[id number] Propofol 1,000 mg In 104.53 100 82.46 Empty Bag 1 bag @ Titrate IV .Q0M [facility]LV[facility] Rx#: [id number] Tube Feeding 918 864 108 Other 320 Output: Drainage 150 350 40 Right Lower Medial Calf 150 350 40 Urine 2402 840 120 Other: Voiding Method Indwelling Catheter Indwelling Catheter ABP, PAP, CO, CI - Last Documented Arterial Blood Pressure 154/62 Pulmonary Artery Pressure 33/21 Cardiac Output 5 Cardiac Index 2.4 - Constitutional General appearance: Present: no acute distress, obese - Respiratory Details: Lungs sounds diminished bilaterally. Respirations even, nonlabored. Currently on mechanical ventilation with oxygen saturation 95%. Settings are assist control mode, FiO2 50%, tidal 0.500, respiratory rate 18, PEEP of 5. ABGs this morning 7.48/36/67/27/3.0/94% on 50% FiO2. - Cardiovascular Details: S1, S2 present. Regular rate and rhythm, sinus rhythm on telemetry. A/V epicardial pacemaker wires present, grounded. Sternum stable. Palpable peripheral pulses bilaterally. Trace generalized edema present. Heart hugger, SCDs, antiembolism stockings in place. Left radial arterial line, left brachial PICC line present. - Gastrointestinal Gastrointestinal Comment(s): Abdomen soft, nontender, nondistended. Active bowel sounds 4 quadrants. OG tube present. Tube feedings infusing at 54 mL per hour with minimal residual output. - Genitourinary Genitourinary Comment(s): Lea present draining clear, yellow urine. Output 50-125 mL/h overnight. Excellent diuresis after IV Lasix given yesterday. - Integumentary Integumentary Comment(s): Skin is warm and dry with evidence of good perfusion. Anterior chest incision well approximated and covered with dry intact dressing. Right lower extremity EVH site well approximate, DREW drain present with 195 mL serous drainage overnight. - Neurologic Neurologic Comment(s): Currently sedated on propofol. Does open eyes. Does follow commands off sedation. - Allied health notes Allied health notes reviewed: nursing - Labs CBC & Chem 7: 06/10/17 04:20 06/10/17 04:20 Labs: Abnormal Lab Results - Last 24 Hours (Table) 06/09/17 06/09/17 06/09/17 Range/Units 09:02 10:02 10:54 RBC (3.80-5.40) m/uL Hgb (11.4-16.0) gm/dL Hct (34.0-46.0) % RDW (11.5-15.5) % Lymphocytes # (1.0-4.8) k/uL ABG pH (7.35-7.45) ABG pO2 (83-108) mmHg ABG HCO3 (21-25) mmol/L ABG Total CO2 (19-24) mmol/L Chloride (98-107) mmol/L BUN (7-17) mg/dL Glucose (74-99) mg/dL POC Glucose (mg/dL) 142 H 124 H 106 H (75-99) mg/dL Magnesium (1.6-2.3) mg/dL ALT (9-52) U/L Total Protein (6.3-8.2) g/dL Albumin (3.5-5.0) g/dL 06/09/17 06/09/17 06/09/17 Range/Units 12:04 12:54 14:05 RBC (3.80-5.40) m/uL Hgb (11.4-16.0) gm/dL Hct (34.0-46.0) % RDW (11.5-15.5) % Lymphocytes # (1.0-4.8) k/uL ABG pH (7.35-7.45) ABG pO2 (83-108) mmHg ABG HCO3 (21-25) mmol/L ABG Total CO2 (19-24) mmol/L Chloride (98-107) mmol/L BUN (7-17) mg/dL Glucose (74-99) mg/dL POC Glucose (mg/dL) 108 H 105 H 134 H (75-99) mg/dL Magnesium (1.6-2.3) mg/dL ALT (9-52) U/L Total Protein (6.3-8.2) g/dL Albumin (3.5-5.0) g/dL 06/09/17 06/09/17 06/09/17 Range/Units 14:43 16:17 17:22 RBC (3.80-5.40) m/uL Hgb (11.4-16.0) gm/dL Hct (34.0-46.0) % RDW (11.5-15.5) % Lymphocytes # (1.0-4.8) k/uL ABG pH (7.35-7.45) ABG pO2 (83-108) mmHg ABG HCO3 (21-25) mmol/L ABG Total CO2 (19-24) mmol/L Chloride (98-107) mmol/L BUN (7-17) mg/dL Glucose (74-99) mg/dL POC Glucose (mg/dL) 117 H 106 H 128 H (75-99) mg/dL Magnesium (1.6-2.3) mg/dL ALT (9-52) U/L Total Protein (6.3-8.2) g/dL Albumin (3.5-5.0) g/dL 06/09/17 06/09/17 06/09/17 Range/Units 18:41 21:13 23:53 RBC (3.80-5.40) m/uL Hgb (11.4-16.0) gm/dL Hct (34.0-46.0) % RDW (11.5-15.5) % Lymphocytes # (1.0-4.8) k/uL ABG pH (7.35-7.45) ABG pO2 (83-108) mmHg ABG HCO3 (21-25) mmol/L ABG Total CO2 (19-24) mmol/L Chloride (98-107) mmol/L BUN (7-17) mg/dL Glucose (74-99) mg/dL POC Glucose (mg/dL) 122 H 110 H 120 H (75-99) mg/dL Magnesium (1.6-2.3) mg/dL ALT (9-52) U/L Total Protein (6.3-8.2) g/dL Albumin (3.5-5.0) g/dL 06/10/17 06/10/17 06/10/17 Range/Units 03:14 04:09 04:20 RBC (3.80-5.40) m/uL Hgb (11.4-16.0) gm/dL Hct (34.0-46.0) % RDW (11.5-15.5) % Lymphocytes # (1.0-4.8) k/uL ABG pH (7.35-7.45) ABG pO2 (83-108) mmHg ABG HCO3 (21-25) mmol/L ABG Total CO2 (19-24) mmol/L Chloride 109 H (98-107) mmol/L BUN 36 H (7-17) mg/dL Glucose 110 H (74-99) mg/dL POC Glucose (mg/dL) 137 H 111 H (75-99) mg/dL Magnesium 2.6 H (1.6-2.3) mg/dL ALT 53 H (9-52) U/L Total Protein 5.1 L (6.3-8.2) g/dL Albumin 2.5 L (3.5-5.0) g/dL 06/10/17 06/10/17 06/10/17 Range/Units 04:20 07:12 07:46 RBC 2.72 L (3.80-5.40) m/uL Hgb 7.5 L (11.4-16.0) gm/dL Hct 24.2 L (34.0-46.0) % RDW 15.7 H (11.5-15.5) % Lymphocytes # 0.7 L (1.0-4.8) k/uL ABG pH 7.48 H (7.35-7.45) ABG pO2 67 L (83-108) mmHg ABG HCO3 27 H (21-25) mmol/L ABG Total CO2 28 H (19-24) mmol/L Chloride (98-107) mmol/L BUN (7-17) mg/dL Glucose (74-99) mg/dL POC Glucose (mg/dL) 118 H (75-99) mg/dL Magnesium (1.6-2.3) mg/dL ALT (9-52) U/L Total Protein (6.3-8.2) g/dL Albumin (3.5-5.0) g/dL 06/10/17 Range/Units 07:56 RBC (3.80-5.40) m/uL Hgb (11.4-16.0) gm/dL Hct (34.0-46.0) % RDW (11.5-15.5) % Lymphocytes # (1.0-4.8) k/uL ABG pH (7.35-7.45) ABG pO2 (83-108) mmHg ABG HCO3 (21-25) mmol/L ABG Total CO2 (19-24) mmol/L Chloride (98-107) mmol/L BUN (7-17) mg/dL Glucose (74-99) mg/dL POC Glucose (mg/dL) 112 H (75-99) mg/dL Magnesium (1.6-2.3) mg/dL ALT (9-52) U/L Total Protein (6.3-8.2) g/dL Albumin (3.5-5.0) g/dL - Imaging and Cardiology Chest x-ray: report reviewed, image reviewed Assessment and Plan (1) Hypertension Current Visit: Yes Status: Chronic Code(s): I10 - ESSENTIAL (PRIMARY) HYPERTENSION SNOMED Code(s): 77633429 (2) Hyperlipidemia Current Visit: Yes Status: Chronic Code(s): E78.5 - HYPERLIPIDEMIA, UNSPECIFIED SNOMED Code(s): 47637709 (3) Diabetes mellitus Current Visit: Yes Status: Chronic Code(s): E11.9 - TYPE 2 DIABETES MELLITUS WITHOUT COMPLICATIONS SNOMED Code(s): 82937845 (4) Previous myocardial infarction older than 8 weeks Current Visit: No Status: Resolved Code(s): I25.2 - OLD MYOCARDIAL INFARCTION SNOMED Code(s): 5700152 (5) History of heart artery stent Current Visit: Yes Status: Chronic Code(s): Z95.5 - PRESENCE OF CORONARY ANGIOPLASTY IMPLANT AND GRAFT SNOMED Code(s): 413981940 (6) Tobacco dependence in remission Current Visit: No Status: Resolved Code(s): F17.201 - NICOTINE DEPENDENCE, UNSPECIFIED, IN REMISSION SNOMED Code(s): 560786079 (7) Family history of premature coronary artery disease Current Visit: Yes Status: Chronic Code(s): Z82.49 - FAMILY HX OF ISCHEM HEART DIS AND OTH DIS OF THE CIRC SYS SNOMED Code(s): 204077261 (8) History of right breast cancer Current Visit: No Status: Resolved Code(s): Z85.3 - PERSONAL HISTORY OF MALIGNANT NEOPLASM OF BREAST SNOMED Code(s): 025855830 (9) Non-STEMI (non-ST elevated myocardial infarction) Current Visit: Yes Status: Acute Code(s): I21.4 - NON-ST ELEVATION (NSTEMI) MYOCARDIAL INFARCTION SNOMED Code(s): 936988239 (10) Morbid obesity with BMI of 40.0-44.9, adult Current Visit: Yes Status: Chronic Code(s): E66.01 - MORBID (SEVERE) OBESITY DUE TO EXCESS CALORIES; Z68.41 - BODY MASS INDEX (BMI) 40.0-44.9, ADULT SNOMED Code(s): 842826948 Plan: 1. Continue aspirin, statin, Plavix, beta doretha. Will increase beta doretha as tolerated, increased to 50 mg 3 times a day today. Continue IV Primacor until extubated. 2. Continue amiodarone for A. fib prophylaxis. 3. Ventilator management, antibiotics per pulmonology. 4. GI/DVT prophylaxis. 5. Will monitor daily labs and x-rays. 6. Insulin drip per primary care service. 7. Keep Lea for strict accurate I and O's. 8. Continue to feedings for maximal nutrition per dietary recommendations. 9. Likely will give 40 mg IV Lasix [address] of the brain this morning per neurology. EEG pending. 11. More recommendations to follow. Time with Patient: Greater than 30
[2017-06-10] MEDS: BUDESONIDE 1 MG/2 ML NEBU INHALATION SCH ×2 (09:13→19:09)
[2017-06-10 09:56] LABS: Glucose,Whole Blood 132 mg/dL (75-99)
[2017-06-10] MEDS ORDERED: FUROSEMIDE 10 MG/ML 4 ML VIAL IV STA (10:08)
--- NOTE | 2017-06-10 11:29 | CT ---
EXAMINATION TYPE: CT brain wo con DATE OF EXAM: 06/10/2017 COMPARISON: Previous study dated 06/08/2017 HISTORY: AMS CT DLP: 989.20 mGycm Automated exposure control for dose reduction was used. FINDINGS: There are generalized changes of sulcal prominence and ventriculomegaly, compatible with atrophic anaya nge. There is diffuse periventricular white matter lucency, compatible with chronic white matter isch emic change. There is a questionable small lacunar infarct in the external capsule on the right. Ther e is no mass effect, midline shift or intracranial blood. There is mucoperiosteal thickening involving the maxillary sinuses bilaterally as well as the xiphoid sinuses and sphenoid sinuses worse on the left than the right. There is fluid within the mastoid air cells compatible with acute mastoiditis. The bony calvarium is intact. IMPRESSION: 1. NO ACUTE INTRACRANIAL ABNORMALITY. 2. ATROPHIC CHANGE. 3. CHRONIC WHITE MATTER ISCHEMIC CHANGE. 4. CHRONIC SINUS MUCOSAL DISEASE. 5. ACUTE MASTOIDITIS BILATERALLY.
[2017-06-10 12:07] LABS: Glucose,Whole Blood 123 mg/dL (75-99)
[2017-06-10] MEDS: CLOPIDOGREL 75 MG TAB PO SCH (12:08)
[2017-06-10 12:19] LABS: Glucose,Whole Blood 111 mg/dL (75-99)
--- NOTE | 2017-06-10 14:33 | PN ---
PROGRESS NOTE DATE OF SERVICE: 06/10/2017. HISTORY: A 66-year-old lady who is status post CABG, her postop recovery was complicated by respiratory failure. Still remains intubated on vent, has had recurrent episodes of atrial fibrillation. CURRENT MEDICATIONS: Amiodarone 200 b.i.d., aspirin, Lipitor, Plavix 75 daily, Lopressor 50 t.i.d. EXAM: Heart rate is 88 beats per minute, blood pressure is 120/70, respiratory rate is 18. Chest exam reveals diminished air entry bilaterally. Heart exam reveals first and second heart sounds. No gallop. Exam of extremities reveals that the peripheral pulses are palpable. There is 1+ edema. ASSESSMENT: 1. Coronary artery disease status post coronary artery bypass grafting. 2. Respiratory failure. 3. Paroxysmal atrial fibrillation. PLAN: Continue with the current supportive care. The patient would benefit from anticoagulation for atrial fibrillation. Start heparin when okay with the surgeon. MMMARICRUZL / RUBENN: [id number] /
[2017-06-10 14:36] LABS: Glucose,Whole Blood 137 mg/dL (75-99)
--- NOTE | 2017-06-10 14:52 | P.PN ---
Subjective Progress Note Date: 06/10/17 Principal diagnosis: Acute cardiac arrest, ventricular fibrillation, status post CPR. On today's evaluation of 05/30/2017 the patient is being seen in follow-up. The patient is resting comfortably in bed. Noted the patient was seen yesterday for a preoperative cardiac clearance. I had a lengthy discussion with her. The patient has morbid obesity, COPD and addition to severe obstructive sleep apnea. The patient with kidney and increased risk of developing postoperative pulmonary complications should thoracotomy and bypass surgery is done. Nevertheless, weighing the risks and benefits, the patient should be able to undertake these risks. For now the patient IV heparin. Her troponins came back positive at 0.038, 0.035 and 0.0 26. The patient's family chest pain for now. CV surgery is on the case. The patient is off Plavix. The patient is being considered for coronary artery bypass surgery next week. She is hemodynamically stable at this point. No cough sputum production or chest that is so wheezing. She tells me that her BiPAP machine was taken away from her as the patient did not demonstrate adequate data as she was hospitalized for pneumonia. Her pneumonia essentially cleared showed no parenchymal lung abnormalities. There is no mediastinal lymphadenopathy. There was a large right axillary lesion measuring 6.5 x 4.8 cm in size ejection of a cyst with overlying scar. Her was a small right-sided pleural effusion with some mild atelectatic changes and mild diffuse bronchial wall thickening without consolidation, and there is a l small hiatal hernia. A 2.4 cm left of the nodule was also seen which is a adenoma and the patient has compression deformity of the level of T11. On 05/31/2017 the patient is free of any chest pain. The patient remains on IV heparin. She'll be kept in the hospital awaiting her surgery. The patient had a blood gases on room air and she demonstrated pH of 7.46 with a pCO2 of 40 and pO2 of 68 and this was done on room air. The cyst in her right axilla was noted. Apparently this was drained on multiple occasions by general surgery and she tells that there is no evidence of any malignancy found on previous drainage procedures. I discussed the case with interventional radiology. We found that there was no need to repeated drainages long as the patient has been drained in the past and the structures of the cystic rather than malignant or solids. On 06/01/2017, the patient is stable and the patient has no new complaints. Simply of any chest pain. She is ambulating. 95% pulse ox on 3 selection by nasal cannula. She is afebrile. No cardiac arrhythmias. No other complaints otherwise for now. Tentative plan is to proceed with surgery next week. On 06/02/2017, the patient is being seen him follow-up. Currently she is interested intensive care unit intubated on a mechanical ventilator. The events that occurred overnight was noted. The patient acutely went into V. fib at around 10:00 and the patient received CPR and defibrillation. The exact downtime was less than 5 minutes. The patient received a total of 2 defibrillation 3 rounds of epinephrine. There was return of spontaneous circulation. The patient was intubated and brought to the intensive care unit. This morning she is sedated With Diprivan and currently Diprivan is running at 50 mics. I was told that the patient was able to follow commands following her cardiac arrest and neurologically seems to be intact despite his underlying cardiac arrest. The patient is on no pressors. Currently she is on assist control mode of ventilation at the rate of 16, tidal volume of 450, FiO2 of 60% and a PEEP of 5. The patient's pH is at 7.39 with a pCO2 of 41 and pO2 of 117. Chest x-ray shows adequate positioning of the ET tube. The patient also has a orogastric tube in place. She is nothing by mouth for now. She has adequate pulses in all 4 extremities. She is calm and comfortable. She is producing urine output in the order of 100 mL an hour. No further cardiac arrhythmias have been noted. The patient was given amiodarone bolus 10 mg and currently she is on a maintenance amiodarone of 0.5 mg/m. Rest of the blood pressure medications are on hold. Beta doretha was given this morning and the patient received Lopressor 25 mg orally. The case was discussed with cardiothoracic surgery. It seems that the patient will need emergent coronary artery bypass surgery and the patient will be taken to the operating room today. On 06/03/2017 I'm seeing this patient for a follow-up. The patient underwent four-vessel bypass surgery. This was done in the afternoon yesterday and the patient arrived back to the intensive care unit around 11 PM. Preoperatively, there has been difficulties with oxygenation and metabolic acidosis. Overall the patient received a total of 6 bicarb amps and the patient arrived to the intensive care unit quite stable on 7 mics of norepinephrine infusion and 1 g of epinephrine infusion.. She was producing adequate amount of urine output and she was hemodynamically stable. Necessary vent changes were done overnight and this morning the patient is on a assist-control mode at the rate of 18, tidal volume of 550, FiO2 has been weaned down to 60% and the current PEEP is at 10. Most recent blood gases showed a pH of 7.46 with a pCO2 of 38 and pO2 of 84 and this was done and FiO2 of 80%. Chest x-ray shows adequate expansion of both lungs. Lung volumes are small. ET tube is in a good location. The patient has 2 chest tubes 1 mediastinal and 1 pleural. No evidence of any pneumothorax. NG tube is in a good location. This morning, the patient is sedated with Diprivan and she is calm and comfortable. We have noted some increased activity in the right upper extremity compared to the left. Note that she is a post cardiac arrest. Mental status was checked preoperatively and she was following some simple commands. In any rate, she is still on Diprivan and Diprivan will be continued as long as the patient is not ready to wean yet. This morning she is on 2 mics of norepinephrine infusion. Cardiac index is at 2.4. Her PA pressures around 35/26, and the chest tube output has been 170 mL from the left pleural and 50s on the mediastinal. No evidence of any air leak. We will lobe and this morning is at 8.7. Correlation profile shows an INR of 1.3 with a PTT of 68. IV heparin was discontinued. Patient was evaluated today on 06/04/2017, remains on mechanical ventilation, her ventilator settings are FiO2 of 65%, tidal volume of 500 assist control rate of 18 and PEEP of 8. ABG showed a pO2 of 62 pCO2 of 34 pH of 7.48. Hence the FiO2 was increased from 60% to 65% and PEEP was increased to 8 as above. Rest of the labs were reviewed the seem to be relatively unremarkable. Chest x- ray showed what seems to be a left lower lobe consolidation. And atelectasis. Hemoglobin is 7.7. Her last echocardiogram showed good LV function. Patient remains on inotropes, but minimal doses. Remains on amiodarone, and she is also on insulin. Chest x-ray showed minimal pulmonary vascular congestion, and atelectasis mostly at the left base. Patient was reevaluated today on 06/05/2017, presently on 60% FiO2, assist control rate was 18, volume of 500, and PEEP was increased to 10. ABG showed a pO2 of 73 pCO2 of 33 pH of 7.48. All labs were reviewed, renal functioning is basically about the same in the last 3 days a 1.20 creatinine, and BUN is 28. Chest x-ray was also reviewed and there is evidence of bibasilar atelectasis, mostly left lower lobe collapse was noted, and the patient underwent bronchoscopy after visualizing her chest x-ray today. PEEP was increased to 10. And the patient was started on empiric antibiotics in the form of Levaquin. Remains on 1 mcg/m of norepinephrine, patient is fully sedated on propofol, however we plan to place the patient on a sedation holiday, and hopefully assess for weaning parameters today. If possible. Patient is clearly not ready for weaning and extubation at this point. Cardiac-munguia she has intermittent episodes of atrial fibrillation, had 1 episode early this morning, presently in normal sinus rhythm. Patient was reevaluated on 06/06/2017, remains on mechanical ventilation, I was able to cut down her FiO2 to 50%, but she remains on a PEEP of 10. Asked x-ray continues to show bilateral opacities at the bases, with more atelectasis is noted in the left lower lobe. All her labs were reviewed, patient was taken off propofol, however the patient remained extremely lethargic, and we did not get to the point where the patient could follow any instructions. Could not even consider a spontaneous breathing trial. At the same time the patient remains on relatively high PEEP, and her ABG remains a very marginal with pO2 in the low 70s. Patient was reevaluated today on 06/07/2017, remains on the same ventilator settings, presently on a pO2 of 50%, and PEEP of 10. ABG was noted, and it is within reasonable range, improved compared to baseline. However not much room to cut down the PEEP any further. Chest x-ray is showing some improvement in her bibasilar atelectasis. Lavage cultures are showing gram-negative bacilli, final identification is pending, patient remains on Levaquin in the meantime. Patient received a unit of packed RBCs today for low hemoglobin of 6.9, and we' ll plan to discontinue sedation, and hopefully assess mental status, and possibly even proceed with spontaneous breathing trials if the patient's mental status allows. Chest x-ray labs and ABG were all reviewed. Reevaluated today on 06/08/2017, patient is postoperative day #6, urgent coronary bypass grafting 4, postoperative day #2 bronchoscopy and bronchoalveolar lavage of the left lower lobe which came back positive for Enterobacter cloacae. Patient remains on mechanical ventilation, her vent settings are tidal volume of 500 assist control rate of 18 FiO2 of 50% and PEEP of 10. ABG showed a pO2 of 79 pCO2 of 37 pH of 7.47. Her peak airway pressure was noted but the plateau pressure is in the range of 22. Compliance is in the range of 40. CBC showed a hemoglobin of 7.7 otherwise the labs are unremarkable platelets are 128. Basic metabolic profile is relatively normal and renal profile is relatively normal. Patient is hemodynamically stable, however the main issue at this point is her mental status, and I felt it would be best to send the patient down for a CT of the brain. In spite of holding propofol for many hours yesterday, patient could not arouse enough to follow any instructions whatsoever. She has some conjugate gaze of the left eye, and does not seem to respond to any stimuli. Pupils are definitely reactive to light. Reevaluated today on 06/09/2017, patient is postoperative day #7. Urgent coronary bypass grafting 4, postoperative day #3 bronchoscopy and bronchoalveolar lavage which came back positive for Enterobacter cloaca. Patient is presently on Merrem. Her ventilator settings are basically the same , she is however now on a PEEP of 5, FiO2 of 50% assist control rate of 18 and tidal volume of 500. ABG this morning showed a pO2 of 81 pCO2 of 37 pH of 7.50. All labs from today including the basic metabolic profile and CBC were reviewed, hemoglobin is 7.6, WBC count is 6.1. Platelets are 1 49,000. Patient was taken off propofol early this morning, I was able to communicate with the patient, and she was following very simple instructions like sticking out tongue, closing eyes, and wiggling toes. Hence proceeded to keep her off propofol, and at one point she remained quite lethargic, but at one point she became extremely agitated, heart rate went up significantly, blood pressure was also noted to be significantly higher, patient had to be placed back on propofol. All her meds were reviewed, and I added Seroquel knowing the patient gets agitated easily and she gets very anxious. Chest x-ray shows very minimal vascular congestion, and small tiny pleural effusions. Minimal atelectasis is also noted at the bases, but improved compared to the initial chest x-ray before bronchoscopy. Reevaluated today on 06/10/2017, she is postoperative day #8, urgent coronary bypass grafting 4 postoperative day number for bronchoscopy and bronchoalveolar lavage of the left lower lobe positive for Enterobacter cloaca. Remains on Merrem. Patient remains on mechanical ventilation, her ventilator settings are tidal volume of 500 assist control rate of 18 FiO2 of 50% and PEEP of 5. Patient is presently on a small dose of Primacor, propofol, and insulin drip. Chest x-ray continues to show mild congestive changes but improved compared to yesterday's chest x-ray. CT of the brain was reviewed and showed no evidence of acute CVA. CBC showed WBC count of 8.4 hemoglobin is 7.5 ABG showed a pO2 of 67 pCO2 of 37 pH of 7.48. Basic metabolic profile is relatively unremarkable, renal profile remains relatively normal. However the patient continues to have difficulty with her mental status, and hardly arousable, however when she is off propofol for a long period, she becomes extremely agitated, hypertensive, tachycardic, and does not seem to be neurologically intact. Hence that is delaying weaning and extubation. We have been trying on a daily basis holding propofol and assess segmental status but she is not at a point where we can even initiate spontaneous breathing trials. Objective - Vital Signs Vital signs: Vital Signs Temp 100.2 F H 06/10/17 12:00 Pulse 82 06/10/17 14:00 Resp 20 06/10/17 14:00 BP 144/69 06/09/17 10:00 Pulse Ox 96 06/10/17 14:00 Intake & Output 06/09/17 06/10/17 06/10/17 18:59 06:59 18:59 Intake Total 7324.232 8813.782 1172.635 Output Total 2552 1190 1540 Balance -1001.170 605.782 -367.365 Weight 124 kg Intake: IV 427.3 448 296 0.9 240 240 160 0.9 for pressure 45 108 36 Meropenem 1 gm In Sodium 100 100 100 Chloride 0.9% 100 ml @ 200 mls/hr IVPB Q8HR [facility] Rx#:[id number] primacor 42.3 Intake, IV Titration 205.530 163.782 82.635 Amount Insulin Regular 100 unit 101.000 61.500 0.175 In Sodium Chloride 0.9% 100 ml @ Per Protocol IV .Q0M [facility] Rx#:[id number] Milrinone-D5w Pmx 20 mg 2.282 In Dextrose/Water 1 100ml .bag @ Per Protocol IV . Q0M [facility] Rx#:[id number] Propofol 1,000 mg In 104.53 100 82.46 Empty Bag 1 bag @ Titrate IV .Q0M [facility] Rx#: [id number] Tube Feeding 918 864 594 Other 320 200 Output: Drainage 150 350 310 Right Lower Medial Calf 150 350 310 Urine 2402 840 1230 Other: Voiding Method Indwelling Catheter Indwelling Catheter Indwelling Catheter ABP, PAP, CO, CI - Last Documented Arterial Blood Pressure 103/57 Pulmonary Artery Pressure 33/21 Cardiac Output 5 Cardiac Index 2.4 - Exam - Exam Physical examination revealed a 66-year-old female, on mechanical ventilation, on propofol, fully sedated. However we plan to stop the propofol again today after she came back from CT of the brain. - Constitutional General appearance: Does not seem to be in any form of distress., On mechanical ventilation. - EENT Eyes: PERRLA, EOMI. Pupils are both reactive to light. - Neck Details: Neck is supple, no neck masses, no thyromegaly, lives in the neck were noted endotracheal tube is intact. - Respiratory Details: Lung sounds diminished breath sound bilaterally, no crackles or rhonchi or wheezes, chest tubes noted in place. Sternum seems to be stable. - Cardiovascular Details: Regular rhythm and rate. S1 and S2 present, negative for S3, gallop or murmur. Sternum is stable. - Gastrointestinal Gastrointestinal Comment(s): Soft nontender no megaly no rebound no guarding, positive bowel sounds. - Genitourinary Genitourinary Comment(s): Lea catheter noted. - Integumentary Integumentary Comment(s): Skin is warm and dry. No cyanosis or clubbing. Both lower extremities are dressed with compression stockings and Venodyne boots. - Neurologic Neurologic Comment(s): Sedated, cannot be assessed. Musculoskeletal Musculoskeletal: Cannot be fully assessed. - Labs CBC & Chem 7: 06/10/17 04:20 06/10/17 04:20 Labs: Abnormal Lab Results - Last 24 Hours (Table) 06/09/17 06/09/17 06/09/17 Range/Units 16:17 17:22 18:41 RBC (3.80-5.40) m/uL Hgb (11.4-16.0) gm/dL Hct (34.0-46.0) % RDW (11.5-15.5) % Lymphocytes # (1.0-4.8) k/uL ABG pH (7.35-7.45) ABG pO2 (83-108) mmHg ABG HCO3 (21-25) mmol/L ABG Total CO2 (19-24) mmol/L Chloride (98-107) mmol/L BUN (7-17) mg/dL Glucose (74-99) mg/dL POC Glucose (mg/dL) 106 H 128 H 122 H (75-99) mg/dL Magnesium (1.6-2.3) mg/dL ALT (9-52) U/L Total Protein (6.3-8.2) g/dL Albumin (3.5-5.0) g/dL 06/09/17 06/09/17 06/10/17 Range/Units 21:13 23:53 03:14 RBC (3.80-5.40) m/uL Hgb (11.4-16.0) gm/dL Hct (34.0-46.0) % RDW (11.5-15.5) % Lymphocytes # (1.0-4.8) k/uL ABG pH (7.35-7.45) ABG pO2 (83-108) mmHg ABG HCO3 (21-25) mmol/L ABG Total CO2 (19-24) mmol/L Chloride (98-107) mmol/L BUN (7-17) mg/dL Glucose (74-99) mg/dL POC Glucose (mg/dL) 110 H 120 H 137 H (75-99) mg/dL Magnesium (1.6-2.3) mg/dL ALT (9-52) U/L Total Protein (6.3-8.2) g/dL Albumin (3.5-5.0) g/dL 06/10/17 06/10/17 06/10/17 Range/Units 04:09 04:20 04:20 RBC 2.72 L (3.80-5.40) m/uL Hgb 7.5 L (11.4-16.0) gm/dL Hct 24.2 L (34.0-46.0) % RDW 15.7 H (11.5-15.5) % Lymphocytes # 0.7 L (1.0-4.8) k/uL ABG pH (7.35-7.45) ABG pO2 (83-108) mmHg ABG HCO3 (21-25) mmol/L ABG Total CO2 (19-24) mmol/L Chloride 109 H (98-107) mmol/L BUN 36 H (7-17) mg/dL Glucose 110 H (74-99) mg/dL POC Glucose (mg/dL) 111 H (75-99) mg/dL Magnesium 2.6 H (1.6-2.3) mg/dL ALT 53 H (9-52) U/L Total Protein 5.1 L (6.3-8.2) g/dL Albumin 2.5 L (3.5-5.0) g/dL 06/10/17 06/10/17 06/10/17 Range/Units 07:12 07:46 07:56 RBC (3.80-5.40) m/uL Hgb (11.4-16.0) gm/dL Hct (34.0-46.0) % RDW (11.5-15.5) % Lymphocytes # (1.0-4.8) k/uL ABG pH 7.48 H (7.35-7.45) ABG pO2 67 L (83-108) mmHg ABG HCO3 27 H (21-25) mmol/L ABG Total CO2 28 H (19-24) mmol/L Chloride (98-107) mmol/L BUN (7-17) mg/dL Glucose (74-99) mg/dL POC Glucose (mg/dL) 118 H 112 H (75-99) mg/dL Magnesium (1.6-2.3) mg/dL ALT (9-52) U/L Total Protein (6.3-8.2) g/dL Albumin (3.5-5.0) g/dL 06/10/17 06/10/17 06/10/17 Range/Units 09:55 12:04 12:17 RBC (3.80-5.40) m/uL Hgb (11.4-16.0) gm/dL Hct (34.0-46.0) % RDW (11.5-15.5) % Lymphocytes # (1.0-4.8) k/uL ABG pH (7.35-7.45) ABG pO2 (83-108) mmHg ABG HCO3 (21-25) mmol/L ABG Total CO2 (19-24) mmol/L Chloride (98-107) mmol/L BUN (7-17) mg/dL Glucose (74-99) mg/dL POC Glucose (mg/dL) 132 H 123 H 111 H (75-99) mg/dL Magnesium (1.6-2.3) mg/dL ALT (9-52) U/L Total Protein (6.3-8.2) g/dL Albumin (3.5-5.0) g/dL 06/10/17 Range/Units 14:34 RBC (3.80-5.40) m/uL Hgb (11.4-16.0) gm/dL Hct (34.0-46.0) % RDW (11.5-15.5) % Lymphocytes # (1.0-4.8) k/uL ABG pH (7.35-7.45) ABG pO2 (83-108) mmHg ABG HCO3 (21-25) mmol/L ABG Total CO2 (19-24) mmol/L Chloride (98-107) mmol/L BUN (7-17) mg/dL Glucose (74-99) mg/dL POC Glucose (mg/dL) 137 H (75-99) mg/dL Magnesium (1.6-2.3) mg/dL ALT (9-52) U/L Total Protein (6.3-8.2) g/dL Albumin (3.5-5.0) g/dL Assessment and Plan Assessment: 1 acute hypoxic respiratory failure requiring intubation secondary to acute cardiac arrest, acute v fibrillation, resuscitated successfully, defibrillated and the patient is currently intubated on a mechanical ventilator. The acute episode of V. fib was probably ischemic in nature. 2 Symptomatic multivessel coronary artery disease involving the proximal and mid LAD, RCA and diffuse disease in the circumflex coronary artery, post TX, post four-vessel bypass surgery and the patient is postop day #8. Adequate cardiac index and output. Hemodynamically stable. Not ready to wean yet mostly because of her overall neurological status. 3 . COPD, with a baseline FEV1 of 76% of predicted on outpatient basis. 4. Obstructive sleep apnea, with baseline AHI of 80, patient was prescribed BiPAP therapy at pressures 21/17 cm of water. 5. Obesity, 6. Coronary artery disease, with previous stenting 7. Recent hospitalization for right lung pneumonia at [facility] in March 2017. Patient had a thoracentesis for pleural effusion during that admission 8. Hyperlipidemia and hypertension hypertension 9. History of right breast cancer with lumpectomy/lymph node removal and radiation 10. GERD/reflux 11 a large cystic structure within the right axilla. Could be a recurrent breast cancer although this is a remote possibility. This has been addressed by many general surgeons out of town, and by Dr. trotter at one point. 12 diabetes mellitus, currently on insulin drip for blood sugar control 13 anemia, hemoglobin is at 7.5 14 left lower lobe pneumonia, acute, secondary to Enterobacter cloacae, hospital acquired. Patient had her left lower lobe abnormality even from day one she was on mechanical ventilation. Hence it is not ventilator associated pneumonia. Recommendation: Continue present ventilatory support, continue to hold propofol intermittently on daily basis, not quite ready for weaning at this point, we'll continue to follow. Patient remains critically ill, we haven't been to a point where we could even initiate spontaneous breathing trials, and that is mostly because of her overall neurological status. Repeat CT of the brain is nondiagnostic again today. Patient will be kept on mechanical ventilation, we' ll continue to follow. Critical care time is 34 minutes. Time with Patient: Greater than 30
[2017-06-10] MEDS ORDERED: FUROSEMIDE 10 MG/ML 4 ML VIAL IV SCH (18:00)
[2017-06-10] MEDS ORDERED: METOPROLOL TARTRATE 5 MG/5 ML VIAL IVP ONE (18:12)
[2017-06-10 18:39] LABS: Glucose,Whole Blood 161 mg/dL (75-99)
[2017-06-10] MEDS: ACETAMINOPHEN TAB 500 MG TAB PO PRN (18:42)
--- NOTE | 2017-06-10 19:51 | P.PN ---
Subjective Progress Note Date: 06/10/17 Principal diagnosis: Altered Mental Status- Ventilator in Use Interval Update: 06/10/17 Neurology is following on a 66 year old female sedated on the ventilator in the ICU. At the time of contact the patient was on sedation holiday. Patient was responding to some verbal commands including blinking of her eyes, squeezing of her thumb bilaterally and withdraws to pain in the distal lower extremities. EEG was ordered. CT brain was repeated and was unremarkable for any new or changed underlying etiology. Given the patients difficulty with prolonged discontinuation of propofol, I am going to change the patient's EEG to be done during sedation holiday if tolerated. May need to consider small IV pushes of versed or ativan to allow the EEG to be completed if during EEG while off propofol the patient experiences difficulty. At this time until EEG is completed , likely primary working diagnosis is (TME) toxic metabolic encephalopathy. Objective - Vital Signs Vital signs: Vital Signs Temp 101.5 F H 06/10/17 17:00 Pulse 85 06/10/17 19:26 Resp 22 06/10/17 19:00 BP 144/69 06/09/17 10:00 Pulse Ox 94 L 06/10/17 19:00 Intake & Output 06/10/17 06/10/17 06/11/17 06:59 18:59 06:59 Intake Total 3224.062 6986.635 54 Output Total 1190 2415 Balance 605.782 -703.365 54 Weight 124 kg Intake: IV 448 511 0.9 240 260 0.9 for pressure 108 51 Meropenem 1 gm In Sodium 100 200 Chloride 0.9% 100 ml @ 200 mls/hr IVPB Q8HR [facility] Rx#:[id number] Intake, IV Titration 163.782 82.635 Amount Insulin Regular 100 unit 61.500 0.175 In Sodium Chloride 0.9% 100 ml @ Per Protocol IV .Q0M [facility] Rx#:[id number] Milrinone-D5w Pmx 20 mg 2.282 In Dextrose/Water 1 100ml .bag @ Per Protocol IV . Q0M [facility] Rx#:[id number] Propofol 1,000 mg In 100 82.46 Empty Bag 1 bag @ Titrate IV .Q0M [facility] Rx#: [id number] Tube Feeding 864 918 54 Other 320 200 Output: Drainage 350 310 Right Lower Medial Calf 350 310 Urine 840 2105 Other: Voiding Method Indwelling Catheter Indwelling Catheter ABP, PAP, CO, CI - Last Documented Arterial Blood Pressure 113/54 Pulmonary Artery Pressure 33/21 Cardiac Output 5 Cardiac Index 2.4 - Exam Patient responded to some small verbal commands including 1. blinking eyes with most requests 2. movement of thumbs 3. withdrew to pain in distal lower extremities with deep painful stimuli Patient unable to complete rest of neurological exam. - Labs CBC & Chem 7: 06/10/17 04:20 06/10/17 18:35 Labs: Abnormal Lab Results - Last 24 Hours (Table) 06/09/17 06/09/17 06/10/17 Range/Units 21:13 23:53 03:14 RBC (3.80-5.40) m/uL Hgb (11.4-16.0) gm/dL Hct (34.0-46.0) % RDW (11.5-15.5) % Lymphocytes # (1.0-4.8) k/uL ABG pH (7.35-7.45) ABG pO2 (83-108) mmHg ABG HCO3 (21-25) mmol/L ABG Total CO2 (19-24) mmol/L Chloride (98-107) mmol/L BUN (7-17) mg/dL Glucose (74-99) mg/dL POC Glucose (mg/dL) 110 H 120 H 137 H (75-99) mg/dL Magnesium (1.6-2.3) mg/dL ALT (9-52) U/L Total Protein (6.3-8.2) g/dL Albumin (3.5-5.0) g/dL 06/10/17 06/10/17 06/10/17 Range/Units 04:09 04:20 04:20 RBC 2.72 L (3.80-5.40) m/uL Hgb 7.5 L (11.4-16.0) gm/dL Hct 24.2 L (34.0-46.0) % RDW 15.7 H (11.5-15.5) % Lymphocytes # 0.7 L (1.0-4.8) k/uL ABG pH (7.35-7.45) ABG pO2 (83-108) mmHg ABG HCO3 (21-25) mmol/L ABG Total CO2 (19-24) mmol/L Chloride 109 H (98-107) mmol/L BUN 36 H (7-17) mg/dL Glucose 110 H (74-99) mg/dL POC Glucose (mg/dL) 111 H (75-99) mg/dL Magnesium 2.6 H (1.6-2.3) mg/dL ALT 53 H (9-52) U/L Total Protein 5.1 L (6.3-8.2) g/dL Albumin 2.5 L (3.5-5.0) g/dL 06/10/17 06/10/17 06/10/17 Range/Units 07:12 07:46 07:56 RBC (3.80-5.40) m/uL Hgb (11.4-16.0) gm/dL Hct (34.0-46.0) % RDW (11.5-15.5) % Lymphocytes # (1.0-4.8) k/uL ABG pH 7.48 H (7.35-7.45) ABG pO2 67 L (83-108) mmHg ABG HCO3 27 H (21-25) mmol/L ABG Total CO2 28 H (19-24) mmol/L Chloride (98-107) mmol/L BUN (7-17) mg/dL Glucose (74-99) mg/dL POC Glucose (mg/dL) 118 H 112 H (75-99) mg/dL Magnesium (1.6-2.3) mg/dL ALT (9-52) U/L Total Protein (6.3-8.2) g/dL Albumin (3.5-5.0) g/dL 06/10/17 06/10/17 06/10/17 Range/Units 09:55 12:04 12:17 RBC (3.80-5.40) m/uL Hgb (11.4-16.0) gm/dL Hct (34.0-46.0) % RDW (11.5-15.5) % Lymphocytes # (1.0-4.8) k/uL ABG pH (7.35-7.45) ABG pO2 (83-108) mmHg ABG HCO3 (21-25) mmol/L ABG Total CO2 (19-24) mmol/L Chloride (98-107) mmol/L BUN (7-17) mg/dL Glucose (74-99) mg/dL POC Glucose (mg/dL) 132 H 123 H 111 H (75-99) mg/dL Magnesium (1.6-2.3) mg/dL ALT (9-52) U/L Total Protein (6.3-8.2) g/dL Albumin (3.5-5.0) g/dL 06/10/17 06/10/17 Range/Units 14:34 18:37 RBC (3.80-5.40) m/uL Hgb (11.4-16.0) gm/dL Hct (34.0-46.0) % RDW (11.5-15.5) % Lymphocytes # (1.0-4.8) k/uL ABG pH (7.35-7.45) ABG pO2 (83-108) mmHg ABG HCO3 (21-25) mmol/L ABG Total CO2 (19-24) mmol/L Chloride (98-107) mmol/L BUN (7-17) mg/dL Glucose (74-99) mg/dL POC Glucose (mg/dL) 137 H 161 H (75-99) mg/dL Magnesium (1.6-2.3) mg/dL ALT (9-52) U/L Total Protein (6.3-8.2) g/dL Albumin (3.5-5.0) g/dL Assessment and Plan (1) Electrolyte imbalance Current Visit: Yes Status: Acute Code(s): E87.8 - OTH DISORDERS OF ELECTROLYTE AND FLUID BALANCE, NEC SNOMED Code(s): 382787850 (2) Altered mental status Current Visit: Yes Status: Acute Code(s): R41.82 - ALTERED MENTAL STATUS, UNSPECIFIED SNOMED Code(s): 779123896 (3) Morbid obesity with BMI of 40.0-44.9, adult Current Visit: Yes Status: Chronic Code(s): E66.01 - MORBID (SEVERE) OBESITY DUE TO EXCESS CALORIES; Z68.41 - BODY MASS INDEX (BMI) 40.0-44.9, ADULT SNOMED Code(s): 127183276 (4) History of sudden cardiac arrest successfully resuscitated Current Visit: Yes Status: Acute Code(s): Z86.74 - PERSONAL HISTORY OF SUDDEN CARDIAC ARREST SNOMED Code(s): 413694331 (5) Toxic metabolic encephalopathy Current Visit: Yes Status: Acute Code(s): G92 - TOXIC ENCEPHALOPATHY SNOMED Code(s): 303983476 Plan: 1. Altered mental status likely secondary to cardiac arrest with electrolyte derangement 2. Toxic metabolic encephalopathy Diagnostic workup to include: EEG during sedation holiday pending Repeat CT brain pending was unremarkable for any changes Treatment recommendations. Continue to replace electrolytes per protocol Await EEG results from 06/11/17 Continue plan of care I have discussed the plan of care with the physician prior to implementation and he agrees with the plan as implemented.
[2017-06-10 20:47] LABS: Glucose,Whole Blood 136 mg/dL (75-99)
[2017-06-10 23:21] LABS: Glucose,Whole Blood 89 mg/dL (75-99)
[2017-06-10] MEDS: SENNOSIDES-DOCUSATE SODIUM 1 EACH TAB PO SCH (23:24)
--- NOTE | 2017-06-11 00:21 | PN ---
PROGRESS NOTE DATE OF SERVICE: 06/10/2017 This 66-year-old woman who was admitted after CAD and CABG is being closely monitored. The patient is mechanically ventilated, sedated, intubated. Dr. Waddell and multiple consultants are following the patient closely. Repeat brain scan was done today with Neurology. Continue Neurology evaluation. The patient also developed atrial fibrillation with fast ventricular rate today. PAST MEDICAL HISTORY: Reviewed. REVIEW OF SYSTEMS: Could not be taken. CURRENT MEDICATIONS: Reviewed and include: 1. Tylenol 650 q.6h p.r.n. 2. Ashley 5 mg p.r.n. 3. DuoNeb q.i.d. and p.r.n. 4. Cordarone 200 mg b.i.d. 5. Vitamin C 500 mg daily. 6. Aspirin 81 mg daily. 7. Lipitor 40 mg daily. 8. Pulmicort 1 mg b.i.d. 9. Plavix. 10.Iron sulfate. 11.Heparin. 12.Ativan. 13.Milk of magnesia. 14.Meropenem. 15. replacement protocol. PHYSICAL EXAM: Patient is on mechanically sedated. Pulse 84, blood pressure is 130/35, respiratory 22, temperature normal, pulse ox 94% on mechanical ventilation FiO2 and 5 of PEEP. HEENT: Conjunctivae normal. Oral mucosa moist. NECK: No jugular venous distention. CARDIOVASCULAR: S1, S2 muffled. RESPIRATORY: Breath sounds diminished in the bases. A few scattered rhonchi, expiratory wheezing and crackles. ABDOMEN: Soft, nontender. LEGS: No edema. NERVOUS SYSTEM: The patient is mechanically sedated. LABS: WBC 8.1, hemoglobin 7.5. ABGs noted. Sodium 140, potassium 4.4, albumin is 2.4. ASSESSMENT: 1. Status post coronary artery disease, coronary artery bypass grafting. 2. Acute hypoxic respiratory failure on mechanical ventilation. 3. Coronary artery disease, multivessel disease followed by cardiac arrest with ventricular fibrillation on the floor. 4. Morbid obesity. 5. history. 6. Diabetes type 2. 7. Gastroesophageal reflux disease. 8. Hyperlipidemia. 9. Sleep apnea. 10.Right mastectomy. 11.Right axillary lesion. 12.Bilateral nephrolithiasis. 13.Left adrenal nodule. 14.Hypertension. 15.Paroxysmal atrial fibrillation history. 16.Pneumonia with Enterobacter cloacae on cultures. RECOMMENDATIONS AND DISCUSSION: In this 66-year-old woman who presented with multiple medical history we will monitor the patient closely. Continue the current management. Continue with symptomatic treatment. Continue the bronchodilators. Continue with empiric antibiotics. Further with Dr. Waddell. The patient is also on amiodarone at this time. Amiodarone drip also at this time for atrial fibrillation. Otherwise continue to monitor. Prognosis guarded. Further recommendations to follow. MMODL / IJN: [id number] / MTDTobias
[2017-06-11 00:27] LABS: Glucose,Whole Blood 117 mg/dL (75-99)
[2017-06-11 01:37] LABS: Glucose,Whole Blood 160 mg/dL (75-99)
[2017-06-11] MEDS: LACTATED RINGERS 1,000 ML IV SCH ×2 (01:40→23:08)
[2017-06-11] MEDS: MEROPENEM 1 GM in SODIUM CHLORIDE 0.9% 100 ML IVPB SCH ×3 (01:43→16:23)
[2017-06-11] MEDS: PROPOFOL 1,000 MG in EMPTY BAG 1 BAG IV SCH ×2 (01:43→08:05)
[2017-06-11] MEDS: IPRATROPIUM-ALBUTEROL 3 ML NEB INHALATION SCH ×5 (02:54→19:56)
[2017-06-11] MEDS ORDERED: DEXTROSE 5% IN WATER 100 ML with AMIODARONE 150 MG IV ONE (02:58)
[2017-06-11 03:04] LABS: Glucose,Whole Blood 143 mg/dL (75-99)
[2017-06-11 05:13] LABS: Glucose,Whole Blood 138 mg/dL (75-99)
[2017-06-11 05:21] LABS: Anisocytosis Slight; Basophils % (A) 0 %; Eosinophils # (A) 0.1 k/uL (0-0.7); Eosinophils % (A) 2 %; HCT 23.5 % (34.0-46.0); HGB 7.5 gm/dL (11.4-16.0); Hypochromasia Slight; Lymphocytes # (A) 0.9 k/uL (1.0-4.8); Lymphocytes % (A) 11 %; MCH 28.4 pg (25.0-35.0); MCV 88.7 fL (80.0-100.0); Mean Platelet Volume 9.7; Monocytes # (A) 0.2 k/uL (0-1.0); Monocytes % (A) 3 %; Neutrophils % (A) 83 %; Platelet Count 191 k/uL (150-450); Poikilocytosis Slight; RBC 2.65 m/uL (3.80-5.40); WBC 8.4 k/uL (3.8-10.6)
[2017-06-11 05:30] LABS: Albumin 2.4 g/dL (3.5-5.0); Calcium 8.2 mg/dL (8.4-10.2); Magnesium 2.6 mg/dL (1.6-2.3); Phosphorus 3.3 mg/dL (2.5-4.5); Potassium 3.9 mmol/L (3.5-5.1); Total Bilirubin 0.5 mg/dL (0.2-1.3)
[2017-06-11] MEDS ORDERED: POTASSIUM BICARBONATE/CIT AC 20 MEQ TABLET.EFF NG-TUBE SCH (06:00)
[2017-06-11 07:12] LABS: ABG Base Excess 4.8 mmol/L; ABG HCO3 28 mmol/L (21-25); ABG PCO2 34 mmHg (35-45); ABG PH 7.53 (7.35-7.45); ABG PO2 69 mmHg (83-108); ABG TCO2 29 mmol/L (19-24)
[2017-06-11] MEDS: BUDESONIDE 1 MG/2 ML NEBU INHALATION SCH ×2 (07:42→19:56)
[2017-06-11 07:57] LABS: Glucose,Whole Blood 117 mg/dL (75-99)
--- NOTE | 2017-06-11 08:32 | XR ---
EXAMINATION TYPE: XR chest 1V portable DATE OF EXAM: 06/11/2017 COMPARISON: Prior chest x-ray 06/10/2017 HISTORY: Post cardiac surgery TECHNIQUE: Single frontal view of the chest is obtained. FINDINGS: Endotracheal tube, NG tube are overlying appropriate positions. Patient is rotated. Patien t is post median sternotomy. Left-sided PICC line is in place, distal tip likely over the superior ve na cava. Heart remains enlarged. Retrocardiac density persists. Lung volumes are improved, aeration i s better than on prior exam. Central vascularity less prominent. Interstitium mildly increased but im proved. No evident pneumothorax. IMPRESSION: Left lower lobe atelectasis versus edema or pneumonia with associated effusion. Suspect underlying interstitial changes, possible scarring. Heart is likely enlarged. Improvement in aeration , volume status. Additional follow-up recommended.
[2017-06-11] MEDS ORDERED: FUROSEMIDE 10 MG/ML 4 ML VIAL IV STA (08:43)
[2017-06-11] MEDS: METOPROLOL TARTRATE 50 MG TAB PO SCH ×2 (09:50→22:11)
[2017-06-11] MEDS: HEPARIN SODIUM,PORCINE 5,000 UNIT/ML 1 ML VIAL SQ SCH ×2 (09:50→16:21)
[2017-06-11] MEDS: PANTOPRAZOLE 40 MG/10 ML VIAL IVP SCH (09:50)
[2017-06-11] MEDS: AMIODARONE 200 MG TAB PO SCH ×2 (09:50→22:11)
[2017-06-11] MEDS: CHLORHEXIDINE GLUCONATE 15 ML CUP MUCOUS MEM SCH ×2 (09:51→22:11)
[2017-06-11] MEDS: POTASSIUM BICARBONATE/CIT AC 20 MEQ TABLET.EFF PO SCH (09:51)
[2017-06-11] MEDS: FERROUS SULFATE 325 MG TAB PO SCH ×2 (09:51→22:12)
[2017-06-11] MEDS: QUEtiapine 25 MG TAB PO SCH ×2 (09:51→22:11)
[2017-06-11] MEDS: ASCORBIC ACID 500 MG TAB PO SCH ×2 (09:51→22:11)
[2017-06-11] MEDS: ASPIRIN 81 MG PO SCH (09:51)
[2017-06-11] MEDS: CLOPIDOGREL 75 MG TAB PO SCH (09:51)
[2017-06-11] MEDS: ATORVASTATIN 40 MG TAB PO SCH (09:52)
[2017-06-11 10:09] LABS: Glucose,Whole Blood 178 mg/dL (75-99)
--- NOTE | 2017-06-11 10:56 | P.PN ---
Subjective Progress Note Date: 06/11/17 Principal diagnosis: Status post four-vessel bypass grafting, respiratory failure Progress note dated 06/11/2017 This is a 66-year-old female with acute hypoxemic respiratory failure status post four-vessel bypass grafting, postop day #9. The patient had a history of acute cardiac arrest and was resuscitated successfully. She was intubated and placed on mechanical ventilator. She is postop day #9 status post four-vessel bypass grafting. Upper this point, the patient has not really had any major or significant weaning towards extubation. She does have a history of COPD with an FEV1 at 76% of predicted suggesting moderate disease. In addition, the patient has history of sleep apnea syndrome obesity CAD pneumonia hyperlipidemia hypertension right breast cancer with previous lumpectomy and lymph node dissection gastroesophageal reflux disease diabetes mellitus anemia and left lower lobe pneumonia secondary to Enterobacter cloacae. Currently, the chest x-ray shows either consolidation or effusion in the left lower lobe. The patient is on the ventilator with the assist control mode rate of 18 tidal volume of 500 FiO2 50% and PEEP of 5. Blood gases show a PaO2 of 69 a PaCO2 34 and pH 7.52. The patient is receiving saline IV at 70 mL an hour , propofol at 25 mics per kilogram per minute Primacor 0.125 mcg/kg/m insulin drip which is currently on hold and vital high protein tube feeds at 54 with a goal of 54 mL an hour. We will attempt a daily eruption of sedation on her and see whether or not she would tolerate a spontaneous breathing trial. I did make some vent changes dropping the volume down to 400 and increasing the rate to 28. Her spontaneous rate was about 28. She was admitted on May 28 and had her four- vessel bypass grafting on June 02. Her hospitalization was been uncomplicated by atrial fibrillation with rapid ventricular response. Objective - Vital Signs Vital signs: Vital Signs Temp 99.4 F 06/11/17 04:00 Pulse 100 06/11/17 08:13 Resp 24 06/11/17 08:00 BP 144/69 06/09/17 10:00 Pulse Ox 96 06/11/17 08:00 Intake & Output 06/10/17 06/11/17 06/11/17 18:59 06:59 18:59 Intake Total 5970.338 6020.85 419.942 Output Total 2415 1142 180 Balance -603.365 595.85 239.942 Weight 126 kg Intake: IV 511 384.7 55.4 0.9 260 0.9 for pressure 51 33 6 LR 200 40 Meropenem 1 gm In Sodium 200 100 Chloride 0.9% 100 ml @ 200 mls/hr IVPB Q8HR [facility] Rx#:[id number] primacor 51.7 9.4 Intake, IV Titration 182.635 213.15 156.542 Amount Insulin Regular 100 unit 0.175 117.6 56.542 In Sodium Chloride 0.9% 100 ml @ Per Protocol IV .Q0M [facility] Rx#:[id number] Milrinone-D5w Pmx 20 mg 2.24 In Dextrose/Water 1 100ml .bag @ Per Protocol IV . Q0M [facility] Rx#:[id number] Propofol 1,000 mg In 182.46 93.31 100 Empty Bag 1 bag @ Titrate IV .Q0M [facility] Rx#: [id number] Tube Feeding 918 810 108 Other 200 330 100 Output: Drainage 310 300 80 Right Lower Medial Calf 310 300 80 Urine 2105 842 100 Other: Voiding Method Indwelling Catheter Indwelling Catheter ABP, PAP, CO, CI - Last Documented Arterial Blood Pressure 138/52 Pulmonary Artery Pressure 33/21 Cardiac Output 5 Cardiac Index 2.4 - Exam No acute distress, the patient is currently sedated and has a endotracheal tube and NG tube in place. HEENT examination is grossly unremarkable. Mucous membranes are moist. Neck supple. Full range of motion. No adenopathy. Cardiovascular examination reveals a regular rhythm rate. Heart rate about 125 or 1 30 bpm. She is in atrial fibrillation. Lungs reveal some diffuse rhonchi. Breath sounds are diminished. No wheezes. Abdomen soft bowel sounds are heard. Extremities are intact. No cyanosis clubbing or edema. Skin without rash. Neurologic examination cannot be performed. - Labs CBC & Chem 7: 06/11/17 05:10 06/11/17 05:10 Labs: Abnormal Lab Results - Last 24 Hours (Table) 06/10/17 06/10/17 06/10/17 Range/Units 12:04 12:17 14:34 RBC (3.80-5.40) m/uL Hgb (11.4-16.0) gm/dL Hct (34.0-46.0) % RDW (11.5-15.5) % Lymphocytes # (1.0-4.8) k/uL ABG pH (7.35-7.45) ABG pCO2 (35-45) mmHg ABG pO2 (83-108) mmHg ABG HCO3 (21-25) mmol/L ABG Total CO2 (19-24) mmol/L Chloride (98-107) mmol/L BUN (7-17) mg/dL Glucose (74-99) mg/dL POC Glucose (mg/dL) 123 H 111 H 137 H (75-99) mg/dL Calcium (8.4-10.2) mg/dL Magnesium (1.6-2.3) mg/dL Total Protein (6.3-8.2) g/dL Albumin (3.5-5.0) g/dL 06/10/17 06/10/17 06/11/17 Range/Units 18:37 20:45 00:25 RBC (3.80-5.40) m/uL Hgb (11.4-16.0) gm/dL Hct (34.0-46.0) % RDW (11.5-15.5) % Lymphocytes # (1.0-4.8) k/uL ABG pH (7.35-7.45) ABG pCO2 (35-45) mmHg ABG pO2 (83-108) mmHg ABG HCO3 (21-25) mmol/L ABG Total CO2 (19-24) mmol/L Chloride (98-107) mmol/L BUN (7-17) mg/dL Glucose (74-99) mg/dL POC Glucose (mg/dL) 161 H 136 H 117 H (75-99) mg/dL Calcium (8.4-10.2) mg/dL Magnesium (1.6-2.3) mg/dL Total Protein (6.3-8.2) g/dL Albumin (3.5-5.0) g/dL 06/11/17 06/11/17 06/11/17 Range/Units 01:36 03:02 05:10 RBC 2.65 L (3.80-5.40) m/uL Hgb 7.5 L (11.4-16.0) gm/dL Hct 23.5 L (34.0-46.0) % RDW 16.0 H (11.5-15.5) % Lymphocytes # 0.9 L (1.0-4.8) k/uL ABG pH (7.35-7.45) ABG pCO2 (35-45) mmHg ABG pO2 (83-108) mmHg ABG HCO3 (21-25) mmol/L ABG Total CO2 (19-24) mmol/L Chloride (98-107) mmol/L BUN (7-17) mg/dL Glucose (74-99) mg/dL POC Glucose (mg/dL) 160 H 143 H (75-99) mg/dL Calcium (8.4-10.2) mg/dL Magnesium (1.6-2.3) mg/dL Total Protein (6.3-8.2) g/dL Albumin (3.5-5.0) g/dL 06/11/17 06/11/17 06/11/17 Range/Units 05:10 05:11 07:05 RBC (3.80-5.40) m/uL Hgb (11.4-16.0) gm/dL Hct (34.0-46.0) % RDW (11.5-15.5) % Lymphocytes # (1.0-4.8) k/uL ABG pH 7.53 H (7.35-7.45) ABG pCO2 34 L (35-45) mmHg ABG pO2 69 L (83-108) mmHg ABG HCO3 28 H (21-25) mmol/L ABG Total CO2 29 H (19-24) mmol/L Chloride 108 H (98-107) mmol/L BUN 37 H (7-17) mg/dL Glucose 131 H (74-99) mg/dL POC Glucose (mg/dL) 138 H (75-99) mg/dL Calcium 8.2 L (8.4-10.2) mg/dL Magnesium 2.6 H (1.6-2.3) mg/dL Total Protein 5.0 L (6.3-8.2) g/dL Albumin 2.4 L (3.5-5.0) g/dL 06/11/17 06/11/17 Range/Units 07:56 10:07 RBC (3.80-5.40) m/uL Hgb (11.4-16.0) gm/dL Hct (34.0-46.0) % RDW (11.5-15.5) % Lymphocytes # (1.0-4.8) k/uL ABG pH (7.35-7.45) ABG pCO2 (35-45) mmHg ABG pO2 (83-108) mmHg ABG HCO3 (21-25) mmol/L ABG Total CO2 (19-24) mmol/L Chloride (98-107) mmol/L BUN (7-17) mg/dL Glucose (74-99) mg/dL POC Glucose (mg/dL) 117 H 178 H (75-99) mg/dL Calcium (8.4-10.2) mg/dL Magnesium (1.6-2.3) mg/dL Total Protein (6.3-8.2) g/dL Albumin (3.5-5.0) g/dL Assessment and Plan Assessment: Assessment Hypoxemic respiratory failure status post acute cardiopulmonary arrest requiring intubation and mechanical ventilation and successful resuscitation. Ischemia induced ventricular fibrillation Severe multivessel coronary disease, status post four-vessel bypass grafting, postoperative day #9 Mild/moderate COPD Sleep apnea syndrome, severe Obesity Coronary disease, with previous stenting Recent hospitalization at [facility] for right lower lobe pneumonia History of right breast cancer with lumpectomy and lymph node dissection GERD Diabetes mellitus Anemia Enterobacter cloacae left lower lobe pneumonia Plan: Plan dated 06/11/2017 The patient will have a weaning trial. The patient has a significant respiratory and metabolic alkalosis which will be a hindrance towards weaning. We'll change tidal volume from 500 down to 400. We'll increase the rate from 18 to 28. We'll try to deal with alkalosis. Additional recommendations and suggestions are forthcoming. Prognosis is guarded. If the patient is stable, we'll do a spontaneous breathing trial. Meds labs x-rays are all reviewed. Chest x-ray shows either consolidation or left-sided pleural effusion. Critical care time is 36 minutes Time with Patient: Greater than 30
--- NOTE | 2017-06-11 11:10 | P.PN ---
Subjective Progress Note Date: 06/11/17 Principal diagnosis: Diffuse severe calcific coronary artery disease. Non-ST elevation myocardial infarction. Preserved left ventricular function with preoperative ejection fraction of 50-55%. Mild mitral valve regurgitation. Status post ventricular fibrillation arrest. Previous medical history of hypertension, hyperlipidemia, insulin dependent diabetes mellitus with current hemoglobin A1c 9.4%, previous myocardial infarction with stent placement to the RCA in 2010, obesity, obstructive sleep apnea, recent pneumonia in March 2017, previous tobacco dependence with preoperative FEV1 77% of predicted and preoperative arterial blood gas on room air pH 7.46, pCO2 40, pO2 68, HCO3 28, right breast cancer with lumpectomy and radiation, and family history of premature coronary artery disease. POD #9 urgent coronary artery bypass grafting 4 using the left internal mammary artery to the left anterior descending artery, reverse saphenous vein graft from the aorta to the distal posterior descending artery, reverse saphenous vein graft from the aorta to the ramus intermedius artery, reverse saphenous vein graft from the aorta to the second diagonal artery. Endoscopic harvesting of the right greater saphenous vein. Intraoperative transesophageal echocardiogram and epi-aortic scanning. Intraoperative graft flow measurements using the [employer] system. Status post preoperative ventricular fibrillation arrest with successful resuscitation. Postoperative prolonged mechanical ventilation secondary to hemodynamic instability, an unexpected but potential outcome of surgery. Postoperative atrial fibrillation, an unexpected but potential outcome of surgery. POD #5 bronchoscopy per pulmonology, bronchial washings positive for Enterobacter cloacae Postoperative acute blood loss anemia, a potential expected outcome of surgery. Patient currently laying in bed in no acute distress on mechanical ventilation. Remains on Primacor. Patient had CT of the brain Bryan as well as yesterday which demonstrated no acute changes. Patient did have another episode of A. fib RVR last night, extra dose of Lopressor given IV. Objective - Vital Signs Vital signs: Vital Signs Temp 99.4 F 06/11/17 04:00 Pulse 100 06/11/17 08:13 Resp 24 06/11/17 08:00 BP 144/69 06/09/17 10:00 Pulse Ox 96 06/11/17 08:00 Intake & Output 06/10/17 06/11/17 06/11/17 18:59 06:59 18:59 Intake Total 2532.633 6802.85 419.942 Output Total 2415 1142 180 Balance -603.365 595.85 239.942 Weight 126 kg 126 kg Intake: IV 511 384.7 55.4 0.9 260 0.9 for pressure 51 33 6 LR 200 40 Meropenem 1 gm In Sodium 200 100 Chloride 0.9% 100 ml @ 200 mls/hr IVPB Q8HR [facility] Rx#:[id number] primacor 51.7 9.4 Intake, IV Titration 182.635 213.15 156.542 Amount Insulin Regular 100 unit 0.175 117.6 56.542 In Sodium Chloride 0.9% 100 ml @ Per Protocol IV .Q0M [facility] Rx#:[id number] Milrinone-D5w Pmx 20 mg 2.24 In Dextrose/Water 1 100ml .bag @ Per Protocol IV . Q0M [facility] Rx#:[id number] Propofol 1,000 mg In 182.46 93.31 100 Empty Bag 1 bag @ Titrate IV .Q0M [facility] Rx#: [id number] Tube Feeding 918 810 108 Other 200 330 100 Output: Drainage 310 300 80 Right Lower Medial Calf 310 300 80 Urine 2105 842 100 Other: Voiding Method Indwelling Catheter Indwelling Catheter ABP, PAP, CO, CI - Last Documented Arterial Blood Pressure 138/52 Pulmonary Artery Pressure 33/21 Cardiac Output 5 Cardiac Index 2.4 - Constitutional General appearance: Present: no acute distress, obese - Respiratory Details: Lungs sounds diminished bilaterally. Respirations even, nonlabored on mechanical ventilation. Current settings assist control mode, FiO2 50%, tidal volume 500, respiratory rate 18, PEEP of 5. ABGs this morning 7.53/34/69/28/4.8/95% on 40% FiO2. - Cardiovascular Details: S1, S2 present. Regular rate and rhythm currently, sinus rhythm with PACs, PVCs , periodic episodes of A. fib RVR. Sternum stable. A/V epicardial pacemaker wires present, grounded. Palpable peripheral pulses bilaterally. Trace generalized edema present. Heart hugger, SCDs, antiembolism stockings present. Left radial arterial line, left brachial PICC line present. - Gastrointestinal Gastrointestinal Comment(s): Abdomen soft, nontender, nondistended. Active bowel sounds are quadrants. Tolerating tube feedings and 54 mL/h through OG tube. Positive bowel movement yesterday. - Genitourinary Genitourinary Comment(s): Lea present draining clear, yellow urine. Output 45-90 mL overnight. - Integumentary Integumentary Comment(s): Skin is warm and dry with evidence of good perfusion. - Neurologic Neurologic Comment(s): Currently on propofol for sedation. - Allied health notes Allied health notes reviewed: nursing - Labs CBC & Chem 7: 06/11/17 05:10 06/11/17 05:10 Labs: Abnormal Lab Results - Last 24 Hours (Table) 06/10/17 06/10/17 06/10/17 Range/Units 12:04 12:17 14:34 RBC (3.80-5.40) m/uL Hgb (11.4-16.0) gm/dL Hct (34.0-46.0) % RDW (11.5-15.5) % Lymphocytes # (1.0-4.8) k/uL ABG pH (7.35-7.45) ABG pCO2 (35-45) mmHg ABG pO2 (83-108) mmHg ABG HCO3 (21-25) mmol/L ABG Total CO2 (19-24) mmol/L Chloride (98-107) mmol/L BUN (7-17) mg/dL Glucose (74-99) mg/dL POC Glucose (mg/dL) 123 H 111 H 137 H (75-99) mg/dL Calcium (8.4-10.2) mg/dL Magnesium (1.6-2.3) mg/dL Total Protein (6.3-8.2) g/dL Albumin (3.5-5.0) g/dL 06/10/17 06/10/17 06/11/17 Range/Units 18:37 20:45 00:25 RBC (3.80-5.40) m/uL Hgb (11.4-16.0) gm/dL Hct (34.0-46.0) % RDW (11.5-15.5) % Lymphocytes # (1.0-4.8) k/uL ABG pH (7.35-7.45) ABG pCO2 (35-45) mmHg ABG pO2 (83-108) mmHg ABG HCO3 (21-25) mmol/L ABG Total CO2 (19-24) mmol/L Chloride (98-107) mmol/L BUN (7-17) mg/dL Glucose (74-99) mg/dL POC Glucose (mg/dL) 161 H 136 H 117 H (75-99) mg/dL Calcium (8.4-10.2) mg/dL Magnesium (1.6-2.3) mg/dL Total Protein (6.3-8.2) g/dL Albumin (3.5-5.0) g/dL 06/11/17 06/11/17 06/11/17 Range/Units 01:36 03:02 05:10 RBC 2.65 L (3.80-5.40) m/uL Hgb 7.5 L (11.4-16.0) gm/dL Hct 23.5 L (34.0-46.0) % RDW 16.0 H (11.5-15.5) % Lymphocytes # 0.9 L (1.0-4.8) k/uL ABG pH (7.35-7.45) ABG pCO2 (35-45) mmHg ABG pO2 (83-108) mmHg ABG HCO3 (21-25) mmol/L ABG Total CO2 (19-24) mmol/L Chloride (98-107) mmol/L BUN (7-17) mg/dL Glucose (74-99) mg/dL POC Glucose (mg/dL) 160 H 143 H (75-99) mg/dL Calcium (8.4-10.2) mg/dL Magnesium (1.6-2.3) mg/dL Total Protein (6.3-8.2) g/dL Albumin (3.5-5.0) g/dL 06/11/17 06/11/17 06/11/17 Range/Units 05:10 05:11 07:05 RBC (3.80-5.40) m/uL Hgb (11.4-16.0) gm/dL Hct (34.0-46.0) % RDW (11.5-15.5) % Lymphocytes # (1.0-4.8) k/uL ABG pH 7.53 H (7.35-7.45) ABG pCO2 34 L (35-45) mmHg ABG pO2 69 L (83-108) mmHg ABG HCO3 28 H (21-25) mmol/L ABG Total CO2 29 H (19-24) mmol/L Chloride 108 H (98-107) mmol/L BUN 37 H (7-17) mg/dL Glucose 131 H (74-99) mg/dL POC Glucose (mg/dL) 138 H (75-99) mg/dL Calcium 8.2 L (8.4-10.2) mg/dL Magnesium 2.6 H (1.6-2.3) mg/dL Total Protein 5.0 L (6.3-8.2) g/dL Albumin 2.4 L (3.5-5.0) g/dL 06/11/17 06/11/17 Range/Units 07:56 10:07 RBC (3.80-5.40) m/uL Hgb (11.4-16.0) gm/dL Hct (34.0-46.0) % RDW (11.5-15.5) % Lymphocytes # (1.0-4.8) k/uL ABG pH (7.35-7.45) ABG pCO2 (35-45) mmHg ABG pO2 (83-108) mmHg ABG HCO3 (21-25) mmol/L ABG Total CO2 (19-24) mmol/L Chloride (98-107) mmol/L BUN (7-17) mg/dL Glucose (74-99) mg/dL POC Glucose (mg/dL) 117 H 178 H (75-99) mg/dL Calcium (8.4-10.2) mg/dL Magnesium (1.6-2.3) mg/dL Total Protein (6.3-8.2) g/dL Albumin (3.5-5.0) g/dL - Imaging and Cardiology Chest x-ray: report reviewed, image reviewed Assessment and Plan (1) Hypertension Current Visit: Yes Status: Chronic Code(s): I10 - ESSENTIAL (PRIMARY) HYPERTENSION SNOMED Code(s): 92918823 (2) Hyperlipidemia Current Visit: Yes Status: Chronic Code(s): E78.5 - HYPERLIPIDEMIA, UNSPECIFIED SNOMED Code(s): 57979241 (3) Diabetes mellitus Current Visit: Yes Status: Chronic Code(s): E11.9 - TYPE 2 DIABETES MELLITUS WITHOUT COMPLICATIONS SNOMED Code(s): 11038289 (4) Previous myocardial infarction older than 8 weeks Current Visit: No Status: Resolved Code(s): I25.2 - OLD MYOCARDIAL INFARCTION SNOMED Code(s): 1501830 (5) History of heart artery stent Current Visit: Yes Status: Chronic Code(s): Z95.5 - PRESENCE OF CORONARY ANGIOPLASTY IMPLANT AND GRAFT SNOMED Code(s): 825674049 (6) Tobacco dependence in remission Current Visit: No Status: Resolved Code(s): F17.201 - NICOTINE DEPENDENCE, UNSPECIFIED, IN REMISSION SNOMED Code(s): 139791317 (7) Family history of premature coronary artery disease Current Visit: Yes Status: Chronic Code(s): Z82.49 - FAMILY HX OF ISCHEM HEART DIS AND OTH DIS OF THE CIRC SYS SNOMED Code(s): 045407185 (8) History of right breast cancer Current Visit: No Status: Resolved Code(s): Z85.3 - PERSONAL HISTORY OF MALIGNANT NEOPLASM OF BREAST SNOMED Code(s): 815900717 (9) Non-STEMI (non-ST elevated myocardial infarction) Current Visit: Yes Status: Acute Code(s): I21.4 - NON-ST ELEVATION (NSTEMI) MYOCARDIAL INFARCTION SNOMED Code(s): 800914685 (10) Morbid obesity with BMI of 40.0-44.9, adult Current Visit: Yes Status: Chronic Code(s): E66.01 - MORBID (SEVERE) OBESITY DUE TO EXCESS CALORIES; Z68.41 - BODY MASS INDEX (BMI) 40.0-44.9, ADULT SNOMED Code(s): 392993889 Plan: 1. Continue aspirin, statin, Plavix, beta doretha. Will increase beta doretha as tolerated, increased to 100 mg twice daily today. Continue IV Primacor until extubated. 2. Continue amiodarone for A. fib prophylaxis. No anticoagulation at this time. 3. Ventilator management, antibiotics per pulmonology. If unable to extubate soon, may need to consider tracheostomy. 4. GI/DVT prophylaxis. 5. Will monitor daily labs and x-rays. 6. Insulin drip per primary care service. 7. Keep Lea for strict accurate I and O's. 8. Continue to feedings for maximal nutrition per dietary recommendations. 9. Will give 40 mg IV Lasix 1 today. 10. More recommendations to follow. Time with Patient: Greater than 30
[2017-06-11 11:54] LABS: Glucose,Whole Blood 181 mg/dL (75-99)
[2017-06-11 12:21] LABS: ABG HCO3 27 mmol/L (21-25); ABG Oxygen Saturation 87.8 % (94-97); ABG PCO2 39 mmHg (35-45); ABG PH 7.45 (7.35-7.45); ABG PO2 56 mmHg (83-108); ABG TCO2 28 mmol/L (19-24)
--- NOTE | 2017-06-11 12:52 | PN ---
PROGRESS NOTE This is a 66-year-old lady with history pf coronary artery disease, status post CABG with respiratory failure. Today, is postop day #9. Remains intubated on vent. Developed atrial fibrillation with poorly controlled ventricular rate, not on anticoagulation per cardiothoracic surgeons. On exam, heart rate is 110 to 120 beats per minute. Blood pressure is 138/58. Respiratory rate 18. Chest exam reveals diminished air entry at the bases with occasional rhonchi. Heart exam reveals first and second heart sounds. Irregular rhythm. Abdomen is soft. Examination of extremities did not reveal any edema. Peripheral pulses are felt. LABS: Labs show a hemoglobin of 7.5, platelet count of 190. Potassium is 3.9. Creatinine is 0.8. Blood gases show a pH of 7.5, pCO2 of 34, and PO2 of 69. ASSESSMENT: 1. Coronary artery disease, status post coronary artery bypass grafting. 2. Respiratory failure. 3. Atrial fibrillation with rapid ventricular rate. PLAN: Patient is on amiodarone and metoprolol 100 b.i.d. If there are no contraindications, please start IV heparin on this patient. MMODL / IJN: [id number] /
[2017-06-11 14:44] LABS: Glucose,Whole Blood 116 mg/dL (75-99)
--- NOTE | 2017-06-11 17:25 | PN ---
PROGRESS NOTE DATE OF SERVICE: 06/11/2017 This 66-year-old woman who was admitted after CAD, CABG also had acute hypoxic respiratory failure. Patient is on mechanical ventilation. Patient also had multivessel coronary artery disease followed by cardiac arrest and ventricular fibrillation on the floor. The patient is being closely monitored. Patient is on mechanical ventilation. Vent settings are noted. Sedation interruption is being planned at this time. Past medical history reviewed. Review of systems could not be taken. CURRENT MEDICATIONS: The current medications are reviewed and include: 1. Tylenol 1000 mg q.6 p.r.n. 2. DuoNeb q.i.d. and p.r.n. 3. Cordarone 200 mg p.o. b.i.d. 4. Vitamin C 500 mg b.i.d. 5. Aspirin 81 mg p.o. daily. 6. Lipitor 40 mg p.o. daily. 7. Dulcolax 10 mg daily p.r.n. 8. Pulmicort 1 mg b.i.d. 9. Peridex. 10.Plavix 75 mg p.o. daily. 11.Iron sulfate. 12.Heparin 5000 units subcutaneously q.8. 13.Milk of magnesia. 14.Meropenem 1 gram IV q.8. 15.Lopressor 100 mg p.o. b.i.d. 16.Replacement protocols. 17.Zofran 4 mg IV q.6. 18.Protonix 40 mg IV daily. 19.K-Lyte 20 mEq p.o. daily. 20.Senokot-S 2 tablets at bedtime. PHYSICAL EXAMINATION: Patient is mechanically ventilated and sedated. Pulse is 102, blood pressure 138/52, respiration 20, temperature normal, pulse ox 96% on mechanical ventilation. The vent settings are noted: 50% FiO2. HEENT: Conjunctivae normal. Oral mucosa moist. NECK: No jugular venous distention. No carotid bruit. No lymph node enlargement. CARDIOVASCULAR SYSTEM: S1, S2 muffled. RESPIRATORY SYSTEM: Breath sounds diminished at the bases. A few scattered rhonchi and crackles. ABDOMEN: Soft. No distention. LEGS: No edema. No swelling. NERVOUS SYSTEM: Patient is mechanically ventilated and sedated. LABS: ABGs noted; pH of 7.45 and pCO2 ntd, Other labs are WBC 8.3, hemoglobin 7.5. LFTs are noted. Magnesium is 2.6. ASSESSMENT: 1. Status post coronary artery disease, coronary artery bypass grafting. 2. Acute hypoxic respiratory failure, on mechanical ventilation. 3. Coronary artery disease, multivessel disease, followed by cardiac arrest with ventricular defibrillation on the floor. 4. Morbid obesity. 5. History of diabetes mellitus, type 2. 6. Gastroesophageal reflux disease. 7. Hyperlipidemia. 8. Sleep apnea. 9. History of right mastectomy. 10.Right axillary lesion history. 11.Bilateral nephrolithiasis. 12.Left adrenal nodule history. 13.Hypertension. 14.Paroxysmal atrial fibrillation history. 15.Pneumonia with Enterobacter cloacae on cultures. RECOMMENDATIONS AND DISCUSSION: I recommend to continue current medication, continue symptomatic treatment. Continue with the bronchodilators. Continue with the empiric antibiotics. Further weaning attempts per Dr. Ott. Recommend close monitoring. DVT prophylaxis. Monitor blood sugars closely. Further recommendations to follow. MMODL / IJN: [id number] / MTDD
[2017-06-11 17:50] LABS: Glucose,Whole Blood 89 mg/dL (75-99)
[2017-06-11 20:06] LABS: Glucose,Whole Blood 165 mg/dL (75-99)
[2017-06-11 22:11] LABS: Glucose,Whole Blood 183 mg/dL (75-99)
[2017-06-11] MEDS: MORPHINE ORAL SOLN 10 MG/5 ML CUP PO PRN (22:12)
[2017-06-11] MEDS: SENNOSIDES-DOCUSATE SODIUM 1 EACH TAB PO SCH (22:12)
[2017-06-11] MEDS: INSULIN REGULAR 100 UNIT in SODIUM CHLORIDE 0.9% 100 ML IV SCH (22:14)
[2017-06-11] MEDS: MONTELUKAST 10 MG TAB PO SCH (22:37)
[2017-06-11 23:52] LABS: Glucose,Whole Blood 133 mg/dL (75-99)
[2017-06-12] MEDS: IPRATROPIUM-ALBUTEROL 3 ML NEB INHALATION SCH ×7 (00:11→23:45)
[2017-06-12] MEDS: MEROPENEM 1 GM in SODIUM CHLORIDE 0.9% 100 ML IVPB SCH ×3 (00:16→15:21)
[2017-06-12 00:17] LABS: Glucose,Whole Blood 136 mg/dL (75-99)
[2017-06-12] MEDS: HEPARIN SODIUM,PORCINE 5,000 UNIT/ML 1 ML VIAL SQ SCH ×3 (00:17→15:21)
[2017-06-12 01:53] LABS: Glucose,Whole Blood 98 mg/dL (75-99)
[2017-06-12 04:07] LABS: ABG Base Excess 2.8 mmol/L; ABG HCO3 27 mmol/L (21-25); ABG Oxygen Saturation 96.3 % (94-97); ABG PCO2 36 mmHg (35-45); ABG PH 7.47 (7.35-7.45); ABG PO2 79 mmHg (83-108); ABG TCO2 28 mmol/L (19-24)
[2017-06-12 04:09] LABS: Glucose,Whole Blood 121 mg/dL (75-99)
[2017-06-12 04:42] LABS: Basophils % (A) 0 %; Eosinophils # (A) 0.1 k/uL (0-0.7); Eosinophils % (A) 1 %; HCT 26.9 % (34.0-46.0); HGB 8.7 gm/dL (11.4-16.0); Hypochromasia Moderate; Lymphocytes % (A) 10 %; MCH 28.8 pg (25.0-35.0); MCHC 32.3 g/dL (31.0-37.0); MCV 89.4 fL (80.0-100.0); Mean Platelet Volume 9.8; Monocytes # (A) 0.3 k/uL (0-1.0); Monocytes % (A) 3 %; Neutrophils # (A) 7.8 k/uL (1.3-7.7); Neutrophils % (A) 84 %; Platelet Count 212 k/uL (150-450); Poikilocytosis Slight; RBC 3.01 m/uL (3.80-5.40); WBC 9.3 k/uL (3.8-10.6)
--- NOTE | 2017-06-12 04:43 | P.PN ---
Subjective Progress Note Date: 06/11/17 Principal diagnosis: Altered Mental Status- Ventilator in Use Interval Update: 06/11/17 Neurology is following on a 66 year old female sedated on the ventilator in the ICU. At the time of contact the patient was on sedation. EEG was ordered yesterday and requested to be performed during sedation holiday. Patient was unable to have the EEG per nursing to this point. Until the EEG can be obtained no further recommendations can be provided by Neurology. Primary working diagnosis is (TME) toxic metabolic encephalopathy with Anoxic brain injury dt cardiac resuscitation. Objective - Vital Signs Vital signs: Vital Signs Temp 98.7 F 06/11/17 16:00 Pulse 84 06/11/17 20:18 Resp 27 H 06/11/17 19:00 BP 144/69 06/09/17 10:00 Pulse Ox 94 L 06/11/17 19:00 Intake & Output 06/11/17 06/11/17 06/12/17 06:59 18:59 06:59 Intake Total 1737.85 1585.310 131 Output Total 1142 1640 80 Balance 595.85 -54.690 51 Weight 126 kg 126 kg Intake: IV 384.7 362.4 23 0.9 for pressure 33 33 3 LR 200 220 20 Meropenem 1 gm In Sodium 100 100 Chloride 0.9% 100 ml @ 200 mls/hr IVPB Q8HR [facility] Rx#:[id number] primacor 51.7 9.4 Intake, IV Titration 213.15 258.910 Amount Insulin Regular 100 unit 117.6 56.542 In Sodium Chloride 0.9% 100 ml @ Per Protocol IV .Q0M [facility] Rx#:[id number] Milrinone-D5w Pmx 20 mg 2.24 2.368 In Dextrose/Water 1 100ml .bag @ Per Protocol IV . Q0M [facility] Rx#:[id number] Propofol 1,000 mg In 93.31 200 Empty Bag 1 bag @ Titrate IV .Q0M [facility] Rx#: [id number] Tube Feeding 810 864 108 Other 330 100 Output: Drainage 300 380 Right Lower Medial Calf 300 380 Urine 842 1260 80 Other: Voiding Method Indwelling Catheter Indwelling Catheter ABP, PAP, CO, CI - Last Documented Arterial Blood Pressure 143/65 Pulmonary Artery Pressure 33/21 Cardiac Output 5 Cardiac Index 2.4 - Exam Patient was still sedated on a ventilator Patient unable to complete neurological exam. Defer to findings/observations during sedation holiday by treatment team providers present at that time - Labs CBC & Chem 7: 06/11/17 05:10 06/11/17 05:10 Labs: Abnormal Lab Results - Last 24 Hours (Table) 06/10/17 06/11/17 06/11/17 Range/Units 20:45 00:25 01:36 RBC (3.80-5.40) m/uL Hgb (11.4-16.0) gm/dL Hct (34.0-46.0) % RDW (11.5-15.5) % Lymphocytes # (1.0-4.8) k/uL ABG pH (7.35-7.45) ABG pCO2 (35-45) mmHg ABG pO2 (83-108) mmHg ABG HCO3 (21-25) mmol/L ABG Total CO2 (19-24) mmol/L ABG O2 Saturation (94-97) % Chloride (98-107) mmol/L BUN (7-17) mg/dL Glucose (74-99) mg/dL POC Glucose (mg/dL) 136 H 117 H 160 H (75-99) mg/dL Calcium (8.4-10.2) mg/dL Magnesium (1.6-2.3) mg/dL Total Protein (6.3-8.2) g/dL Albumin (3.5-5.0) g/dL 06/11/17 06/11/17 06/11/17 Range/Units 03:02 05:10 05:10 RBC 2.65 L (3.80-5.40) m/uL Hgb 7.5 L (11.4-16.0) gm/dL Hct 23.5 L (34.0-46.0) % RDW 16.0 H (11.5-15.5) % Lymphocytes # 0.9 L (1.0-4.8) k/uL ABG pH (7.35-7.45) ABG pCO2 (35-45) mmHg ABG pO2 (83-108) mmHg ABG HCO3 (21-25) mmol/L ABG Total CO2 (19-24) mmol/L ABG O2 Saturation (94-97) % Chloride 108 H (98-107) mmol/L BUN 37 H (7-17) mg/dL Glucose 131 H (74-99) mg/dL POC Glucose (mg/dL) 143 H (75-99) mg/dL Calcium 8.2 L (8.4-10.2) mg/dL Magnesium 2.6 H (1.6-2.3) mg/dL Total Protein 5.0 L (6.3-8.2) g/dL Albumin 2.4 L (3.5-5.0) g/dL 06/11/17 06/11/17 06/11/17 Range/Units 05:11 07:05 07:56 RBC (3.80-5.40) m/uL Hgb (11.4-16.0) gm/dL Hct (34.0-46.0) % RDW (11.5-15.5) % Lymphocytes # (1.0-4.8) k/uL ABG pH 7.53 H (7.35-7.45) ABG pCO2 34 L (35-45) mmHg ABG pO2 69 L (83-108) mmHg ABG HCO3 28 H (21-25) mmol/L ABG Total CO2 29 H (19-24) mmol/L ABG O2 Saturation (94-97) % Chloride (98-107) mmol/L BUN (7-17) mg/dL Glucose (74-99) mg/dL POC Glucose (mg/dL) 138 H 117 H (75-99) mg/dL Calcium (8.4-10.2) mg/dL Magnesium (1.6-2.3) mg/dL Total Protein (6.3-8.2) g/dL Albumin (3.5-5.0) g/dL 06/11/17 06/11/17 06/11/17 Range/Units 10:07 11:53 12:19 RBC (3.80-5.40) m/uL Hgb (11.4-16.0) gm/dL Hct (34.0-46.0) % RDW (11.5-15.5) % Lymphocytes # (1.0-4.8) k/uL ABG pH (7.35-7.45) ABG pCO2 (35-45) mmHg ABG pO2 56 L (83-108) mmHg ABG HCO3 27 H (21-25) mmol/L ABG Total CO2 28 H (19-24) mmol/L ABG O2 Saturation 87.8 L (94-97) % Chloride (98-107) mmol/L BUN (7-17) mg/dL Glucose (74-99) mg/dL POC Glucose (mg/dL) 178 H 181 H (75-99) mg/dL Calcium (8.4-10.2) mg/dL Magnesium (1.6-2.3) mg/dL Total Protein (6.3-8.2) g/dL Albumin (3.5-5.0) g/dL 06/11/17 06/11/17 Range/Units 14:42 20:05 RBC (3.80-5.40) m/uL Hgb (11.4-16.0) gm/dL Hct (34.0-46.0) % RDW (11.5-15.5) % Lymphocytes # (1.0-4.8) k/uL ABG pH (7.35-7.45) ABG pCO2 (35-45) mmHg ABG pO2 (83-108) mmHg ABG HCO3 (21-25) mmol/L ABG Total CO2 (19-24) mmol/L ABG O2 Saturation (94-97) % Chloride (98-107) mmol/L BUN (7-17) mg/dL Glucose (74-99) mg/dL POC Glucose (mg/dL) 116 H 165 H (75-99) mg/dL Calcium (8.4-10.2) mg/dL Magnesium (1.6-2.3) mg/dL Total Protein (6.3-8.2) g/dL Albumin (3.5-5.0) g/dL Assessment and Plan (1) Electrolyte imbalance Current Visit: Yes Status: Acute Code(s): E87.8 - OTH DISORDERS OF ELECTROLYTE AND FLUID BALANCE, NEC SNOMED Code(s): 536358019 (2) Altered mental status Current Visit: Yes Status: Acute Code(s): R41.82 - ALTERED MENTAL STATUS, UNSPECIFIED SNOMED Code(s): 342195085 (3) Morbid obesity with BMI of 40.0-44.9, adult Current Visit: Yes Status: Chronic Code(s): E66.01 - MORBID (SEVERE) OBESITY DUE TO EXCESS CALORIES; Z68.41 - BODY MASS INDEX (BMI) 40.0-44.9, ADULT SNOMED Code(s): 025420341 (4) History of sudden cardiac arrest successfully resuscitated Current Visit: Yes Status: Acute Code(s): Z86.74 - PERSONAL HISTORY OF SUDDEN CARDIAC ARREST SNOMED Code(s): 292785621 (5) Toxic metabolic encephalopathy Current Visit: Yes Status: Acute Code(s): G92 - TOXIC ENCEPHALOPATHY SNOMED Code(s): 056768552 Plan: 1. Altered mental status likely secondary to cardiac arrest with electrolyte derangement 2. Toxic metabolic encephalopathy Diagnostic workup to include: EEG during sedation holiday pending Repeat CT brain pending was unremarkable for any changes Treatment recommendations. Continue to replace electrolytes per protocol Await EEG results from Continue plan of care Discussed patient extensively with supervising physician and at this time neurology will follow on an as needed basis until the EEG can be received or other considerations warrant further involvement. I have discussed the plan of care with the physician prior to implementation and he agrees with the plan as implemented.
[2017-06-12 04:51] LABS: Ionized Calcium 5.1 mg/dL (4.5-5.3)
[2017-06-12 05:03] LABS: Albumin 2.6 g/dL (3.5-5.0); Calcium 8.7 mg/dL (8.4-10.2); Magnesium 2.6 mg/dL (1.6-2.3); Phosphorus 4.2 mg/dL (2.5-4.5); Potassium 4.4 mmol/L (3.5-5.1); Total Bilirubin 0.8 mg/dL (0.2-1.3); Total Protein 5.5 g/dL (6.3-8.2)
[2017-06-12 05:58] LABS: Glucose,Whole Blood 207 mg/dL (75-99)
[2017-06-12] MEDS: FERROUS SULFATE 325 MG TAB PO SCH (06:58)
[2017-06-12] MEDS: BUDESONIDE 1 MG/2 ML NEBU INHALATION SCH ×2 (07:08→19:25)
[2017-06-12 07:48] LABS: Glucose,Whole Blood 170 mg/dL (75-99)
--- NOTE | 2017-06-12 08:09 | XR ---
EXAMINATION TYPE: XR chest 1V portable DATE OF EXAM: 06/12/2017 CLINICAL HISTORY: Difficulty breathing post open cardiac surgery progress study. TECHNIQUE: Single AP portable semiupright view of the chest is obtained. COMPARISON: Chest x-ray from one day earlier and older studies. FINDINGS: An endotracheal tube, orogastric tube, and left-sided PICC line are all stable in appearan ce. Sternal wires and mediastinal clips are redemonstrated. There is persisting cardiomegaly with left basilar opacity felt to reflect small to moderate-sized le ft pleural effusion and associated left basilar atelectasis and/or infiltrate. Right lung remains ano kathryn clear with some patchy basilar atelectasis. Some underlying scoliosis remains present. IMPRESSION: Overall stable findings, cardiomegaly with suspected small to moderate-sized left pleur al effusion and associated left basilar atelectasis and/or infiltrate.
[2017-06-12 09:06] LABS: Glucose,Whole Blood 168 mg/dL (75-99)
[2017-06-12] MEDS: METOPROLOL TARTRATE 50 MG TAB PO SCH ×2 (09:08→22:14)
[2017-06-12] MEDS: CHLORHEXIDINE GLUCONATE 15 ML CUP MUCOUS MEM SCH ×2 (09:08→22:14)
[2017-06-12] MEDS: PANTOPRAZOLE 40 MG/10 ML VIAL IVP SCH (09:09)
[2017-06-12] MEDS: ASPIRIN 81 MG PO SCH (09:10)
[2017-06-12] MEDS: AMIODARONE 200 MG TAB PO SCH ×2 (09:10→22:12)
[2017-06-12] MEDS: ATORVASTATIN 40 MG TAB PO SCH (09:10)
[2017-06-12] MEDS: CLOPIDOGREL 75 MG TAB PO SCH (09:10)
[2017-06-12] MEDS: POTASSIUM BICARBONATE/CIT AC 20 MEQ TABLET.EFF PO SCH (09:11)
[2017-06-12] MEDS: QUEtiapine 25 MG TAB PO SCH ×2 (09:11→22:14)
[2017-06-12] MEDS: ASCORBIC ACID 500 MG TAB PO SCH ×2 (09:11→22:12)
--- NOTE | 2017-06-12 09:15 | P.PN ---
Subjective Progress Note Date: 06/12/17 Principal diagnosis: Status post four-vessel bypass grafting, respiratory failure Progress note dated 06/11/2017 This is a 66-year-old female with acute hypoxemic respiratory failure status post four-vessel bypass grafting, postop day #9. The patient had a history of acute cardiac arrest and was resuscitated successfully. She was intubated and placed on mechanical ventilator. She is postop day #9 status post four-vessel bypass grafting. Upper this point, the patient has not really had any major or significant weaning towards extubation. She does have a history of COPD with an FEV1 at 76% of predicted suggesting moderate disease. In addition, the patient has history of sleep apnea syndrome obesity CAD pneumonia hyperlipidemia hypertension right breast cancer with previous lumpectomy and lymph node dissection gastroesophageal reflux disease diabetes mellitus anemia and left lower lobe pneumonia secondary to Enterobacter cloacae. Currently, the chest x-ray shows either consolidation or effusion in the left lower lobe. The patient is on the ventilator with the assist control mode rate of 18 tidal volume of 500 FiO2 50% and PEEP of 5. Blood gases show a PaO2 of 69 a PaCO2 34 and pH 7.52. The patient is receiving saline IV at 70 mL an hour , propofol at 25 mics per kilogram per minute Primacor 0.125 mcg/kg/m insulin drip which is currently on hold and vital high protein tube feeds at 54 with a goal of 54 mL an hour. We will attempt a daily eruption of sedation on her and see whether or not she would tolerate a spontaneous breathing trial. I did make some vent changes dropping the volume down to 400 and increasing the rate to 28. Her spontaneous rate was about 28. She was admitted on May 28 and had her four- vessel bypass grafting on June 02. Her hospitalization was been uncomplicated by atrial fibrillation with rapid ventricular response. Progress note dated 06/12/2017 This is a 66-year-old female with acute hypoxemic respiratory failure status post four-vessel bypass grafting, postop day #10. The patient had a history of acute cardiac arrest and was resuscitated successfully. She was intubated and placed on mechanical ventilator. She is postop day #9 status post four-vessel bypass grafting. Upper this point, the patient has not really had any major or significant weaning towards extubation. She does have a history of COPD with an FEV1 at 76% of predicted suggesting moderate disease. In addition, the patient has history of sleep apnea syndrome obesity CAD pneumonia hyperlipidemia hypertension right breast cancer with previous lumpectomy and lymph node dissection gastroesophageal reflux disease diabetes mellitus anemia and left lower lobe pneumonia secondary to Enterobacter cloacae. Currently, the chest x-ray shows either consolidation or effusion in the left lower lobe. The patient is on the ventilator with the assist control mode rate of 28 tidal volume of 400 FiO2 50% and PEEP of 10. Blood gases show a PaO2 of 79 a PaCO2 36 and pH 7.47. The patient is receiving saline IV at 70 mL an hour , propofol at 25 mics per kilogram per minute Primacor 0.125 mcg/kg/m insulin drip which is currently on hold and vital high protein tube feeds at 54 with a goal of 54 mL an hour. We will attempt a daily interuption of sedation on her and see whether or not she would tolerate a spontaneous breathing trial. I did make some vent changes dropping the volume down to 400 and increasing the rate to 28. Her spontaneous rate was about 28. She was admitted on May 28 and had her four-vessel bypass grafting on June 02. Her hospitalization was been uncomplicated by atrial fibrillation with rapid ventricular response. The patient did spend about 1-1/2 hours on PSV 10 and CPAP of 5 yesterday. Unfortunately, the weaning trial was aborted because of high respiratory rate in atrial fibrillation with RVR. She is likely to be having a tracheostomy sometime this week. Again we will attempt PSV and CPAP sometime today. Prognosis on my opinion is not good for successful weaning and this patient. Objective - Vital Signs Vital signs: Vital Signs Temp 99.1 F 06/12/17 04:00 Pulse 133 H 06/12/17 07:37 Resp 29 H 06/12/17 07:00 BP 144/69 06/09/17 10:00 Pulse Ox 97 06/12/17 07:00 Intake & Output 06/11/17 06/12/17 06/12/17 18:59 06:59 18:59 Intake Total 3983.144 0538.383 155.2 Output Total 1640 1092 Balance -54.690 629.383 155.2 Weight 126 kg 125 kg Intake: IV 362.4 399 100 0.9 for pressure 33 39 LR 220 260 Meropenem 1 gm In Sodium 100 100 100 Chloride 0.9% 100 ml @ 200 mls/hr IVPB Q8HR [facility] Rx#:[id number] primacor 9.4 Intake, IV Titration 258.910 74.383 25.2 Amount Insulin Regular 100 unit 56.542 74.383 25.2 In Sodium Chloride 0.9% 100 ml @ Per Protocol IV .Q0M [facility] Rx#:[id number] Milrinone-D5w Pmx 20 mg 2.368 In Dextrose/Water 1 100ml .bag @ Per Protocol IV . Q0M [facility] Rx#:[id number] Propofol 1,000 mg In 200 Empty Bag 1 bag @ Titrate IV .Q0M [facility] Rx#: [id number] Tube Feeding 864 918 Other 100 330 30 Output: Drainage 380 270 Right Lower Medial Calf 380 270 Urine 1260 822 Other: Voiding Method Indwelling Catheter Indwelling Catheter # Bowel Movements 1 ABP, PAP, CO, CI - Last Documented Arterial Blood Pressure 112/69 Pulmonary Artery Pressure 33/21 Cardiac Output 5 Cardiac Index 2.4 - Exam No acute distress, the patient is currently sedated and has a endotracheal tube and NG tube in place. HEENT examination is grossly unremarkable. Mucous membranes are moist. Neck supple. Full range of motion. No adenopathy. Cardiovascular examination reveals a regular rhythm rate. Heart rate about 125 or 1 30 bpm. She is in atrial fibrillation. Lungs reveal some diffuse rhonchi. Breath sounds are diminished. No wheezes. Abdomen soft bowel sounds are heard. Extremities are intact. No cyanosis clubbing or edema. Skin without rash. Neurologic examination cannot be performed. - Labs CBC & Chem 7: 06/12/17 04:35 06/12/17 04:35 Labs: Abnormal Lab Results - Last 24 Hours (Table) 06/11/17 06/11/17 06/11/17 Range/Units 10:07 11:53 12:19 RBC (3.80-5.40) m/uL Hgb (11.4-16.0) gm/dL Hct (34.0-46.0) % RDW (11.5-15.5) % Neutrophils # (1.3-7.7) k/uL ABG pH (7.35-7.45) ABG pO2 56 L (83-108) mmHg ABG HCO3 27 H (21-25) mmol/L ABG Total CO2 28 H (19-24) mmol/L ABG O2 Saturation 87.8 L (94-97) % Chloride (98-107) mmol/L BUN (7-17) mg/dL Glucose (74-99) mg/dL POC Glucose (mg/dL) 178 H 181 H (75-99) mg/dL Magnesium (1.6-2.3) mg/dL Total Protein (6.3-8.2) g/dL Albumin (3.5-5.0) g/dL 06/11/17 06/11/17 06/11/17 Range/Units 14:42 20:05 22:09 RBC (3.80-5.40) m/uL Hgb (11.4-16.0) gm/dL Hct (34.0-46.0) % RDW (11.5-15.5) % Neutrophils # (1.3-7.7) k/uL ABG pH (7.35-7.45) ABG pO2 (83-108) mmHg ABG HCO3 (21-25) mmol/L ABG Total CO2 (19-24) mmol/L ABG O2 Saturation (94-97) % Chloride (98-107) mmol/L BUN (7-17) mg/dL Glucose (74-99) mg/dL POC Glucose (mg/dL) 116 H 165 H 183 H (75-99) mg/dL Magnesium (1.6-2.3) mg/dL Total Protein (6.3-8.2) g/dL Albumin (3.5-5.0) g/dL 06/11/17 06/12/17 06/12/17 Range/Units 23:49 00:16 04:05 RBC (3.80-5.40) m/uL Hgb (11.4-16.0) gm/dL Hct (34.0-46.0) % RDW (11.5-15.5) % Neutrophils # (1.3-7.7) k/uL ABG pH (7.35-7.45) ABG pO2 (83-108) mmHg ABG HCO3 (21-25) mmol/L ABG Total CO2 (19-24) mmol/L ABG O2 Saturation (94-97) % Chloride (98-107) mmol/L BUN (7-17) mg/dL Glucose (74-99) mg/dL POC Glucose (mg/dL) 133 H 136 H 121 H (75-99) mg/dL Magnesium (1.6-2.3) mg/dL Total Protein (6.3-8.2) g/dL Albumin (3.5-5.0) g/dL 06/12/17 06/12/17 06/12/17 Range/Units 04:06 04:35 04:35 RBC 3.01 L (3.80-5.40) m/uL Hgb 8.7 L (11.4-16.0) gm/dL Hct 26.9 L (34.0-46.0) % RDW 16.0 H (11.5-15.5) % Neutrophils # 7.8 H (1.3-7.7) k/uL ABG pH 7.47 H (7.35-7.45) ABG pO2 79 L (83-108) mmHg ABG HCO3 27 H (21-25) mmol/L ABG Total CO2 28 H (19-24) mmol/L ABG O2 Saturation (94-97) % Chloride 110 H (98-107) mmol/L BUN 45 H (7-17) mg/dL Glucose 168 H (74-99) mg/dL POC Glucose (mg/dL) (75-99) mg/dL Magnesium 2.6 H (1.6-2.3) mg/dL Total Protein 5.5 L (6.3-8.2) g/dL Albumin 2.6 L (3.5-5.0) g/dL 06/12/17 06/12/17 06/12/17 Range/Units 05:56 07:46 09:03 RBC (3.80-5.40) m/uL Hgb (11.4-16.0) gm/dL Hct (34.0-46.0) % RDW (11.5-15.5) % Neutrophils # (1.3-7.7) k/uL ABG pH (7.35-7.45) ABG pO2 (83-108) mmHg ABG HCO3 (21-25) mmol/L ABG Total CO2 (19-24) mmol/L ABG O2 Saturation (94-97) % Chloride (98-107) mmol/L BUN (7-17) mg/dL Glucose (74-99) mg/dL POC Glucose (mg/dL) 207 H 170 H 168 H (75-99) mg/dL Magnesium (1.6-2.3) mg/dL Total Protein (6.3-8.2) g/dL Albumin (3.5-5.0) g/dL Assessment and Plan Assessment: Assessment Hypoxemic respiratory failure status post acute cardiopulmonary arrest requiring intubation and mechanical ventilation and successful resuscitation. Ischemia induced ventricular fibrillation Severe multivessel coronary disease, status post four-vessel bypass grafting, postoperative day #9 Mild/moderate COPD Sleep apnea syndrome, severe Obesity Coronary disease, with previous stenting Recent hospitalization at [facility] for right lower lobe pneumonia History of right breast cancer with lumpectomy and lymph node dissection GERD Diabetes mellitus Anemia Enterobacter cloacae left lower lobe pneumonia Plan: Plan dated 06/11/2017 The patient will have a weaning trial. The patient has a significant respiratory and metabolic alkalosis which will be a hindrance towards weaning. We'll change tidal volume from 500 down to 400. We'll increase the rate from 18 to 28. We'll try to deal with alkalosis. Additional recommendations and suggestions are forthcoming. Prognosis is guarded. If the patient is stable, we'll do a spontaneous breathing trial. Meds labs x-rays are all reviewed. Chest x-ray shows either consolidation or left-sided pleural effusion. Critical care time is 36 minutes Plan dated 06/12/2017 The patient had a very brief weaning trial yesterday. Unfortunately, atrial fibrillation with rapid ventricular response and a high respiratory rate up into the 40s prevented a longer weaning trial. I suspect that the patient will need a tracheostomy. I think is being planned for sometime this week. She really hasn't done very well. Off of all sedation, her mental status is poor. Her chest x-rays recently stable with a consolidation small effusion in the left base. Her medications labs and x-rays are all reviewed. She continues to be a full code. Prognosis is guarded. Additional recommendations and suggestions are forthcoming. Time with Patient: Greater than 30
--- NOTE | 2017-06-12 09:43 | P.PN ---
Subjective Progress Note Date: 06/12/17 Principal diagnosis: Diffuse severe calcific coronary artery disease. Non-ST elevation myocardial infarction. Preserved left ventricular function with preoperative ejection fraction of 50-55%. Mild mitral valve regurgitation. Status post ventricular fibrillation arrest. Previous medical history of hypertension, hyperlipidemia, insulin dependent diabetes mellitus with current hemoglobin A1c 9.4%, previous myocardial infarction with stent placement to the RCA in 2010, obesity, obstructive sleep apnea, recent pneumonia in March 2017, previous tobacco dependence with preoperative FEV1 77% of predicted and preoperative arterial blood gas on room air pH 7.46, pCO2 40, pO2 68, HCO3 28, right breast cancer with lumpectomy and radiation, and family history of premature coronary artery disease. POD #10 urgent coronary artery bypass grafting 4 using the left internal mammary artery to the left anterior descending artery, reverse saphenous vein graft from the aorta to the distal posterior descending artery, reverse saphenous vein graft from the aorta to the ramus intermedius artery, reverse saphenous vein graft from the aorta to the second diagonal artery. Endoscopic harvesting of the right greater saphenous vein. Intraoperative transesophageal echocardiogram and epi-aortic scanning. Intraoperative graft flow measurements using the [employer] and [employer] system. Status post preoperative ventricular fibrillation arrest with successful resuscitation. Postoperative prolonged mechanical ventilation secondary to hemodynamic instability, an unexpected but potential outcome of surgery. Postoperative atrial fibrillation, an unexpected but potential outcome of surgery. POD #6 bronchoscopy per pulmonology, bronchial washings positive for Enterobacter cloacae Postoperative acute blood loss anemia, a potential expected outcome of surgery. Patient currently laying in bed in no acute distress on mechanical ventilation. Patient had CT of the brain Sunday and Sunday which demonstrated no acute changes. Patient was off sedation all day yesterday, did have weaning trials for approximately an hour and a half. Patient does not follow commands. Patient did continues to have periodic episodes of atrial fibrillation with rapid ventricular response. Objective - Vital Signs Vital signs: Vital Signs Temp 99.1 F 06/12/17 04:00 Pulse 133 H 06/12/17 07:37 Resp 29 H 06/12/17 07:00 BP 144/69 06/09/17 10:00 Pulse Ox 97 06/12/17 07:00 Intake & Output 06/11/17 06/12/17 06/12/17 18:59 06:59 18:59 Intake Total 4631.038 3156.383 172.7 Output Total 1640 1092 Balance -54.690 629.383 172.7 Weight 126 kg 125 kg Intake: IV 362.4 399 100 0.9 for pressure 33 39 LR 220 260 Meropenem 1 gm In Sodium 100 100 100 Chloride 0.9% 100 ml @ 200 mls/hr IVPB Q8HR [facility] Rx#:[id number] primacor 9.4 Intake, IV Titration 258.910 74.383 42.7 Amount Insulin Regular 100 unit 56.542 74.383 42.7 In Sodium Chloride 0.9% 100 ml @ Per Protocol IV .Q0M [facility] Rx#:[id number] Milrinone-D5w Pmx 20 mg 2.368 In Dextrose/Water 1 100ml .bag @ Per Protocol IV . Q0M [facility] Rx#:[id number] Propofol 1,000 mg In 200 Empty Bag 1 bag @ Titrate IV .Q0M [facility] Rx#: [id number] Tube Feeding 864 918 Other 100 330 30 Output: Drainage 380 270 Right Lower Medial Calf 380 270 Urine 1260 822 Other: Voiding Method Indwelling Catheter Indwelling Catheter # Bowel Movements 1 ABP, PAP, CO, CI - Last Documented Arterial Blood Pressure 112/69 Pulmonary Artery Pressure 33/21 Cardiac Output 5 Cardiac Index 2.4 - Constitutional General appearance: Present: no acute distress, obese - Respiratory Details: Lungs sounds diminished bilaterally. Respirations even, nonlabored on mechanical ventilation. Current settings assist control mode, FiO2 50%, tidal volume 400, respiratory rate 28, PEEP 10. ABGs this morning 7.47/36/79/27/2.8/ 96% on 50% FiO2. - Cardiovascular Details: S1, S2 present. Irregular, taking rate and rhythm, atrial fibrillation with rapid ventricular response on telemetry. Sternum stable. A/P epicardial pacemaker wires present, grounded. Palpable peripheral pulses bilaterally. Trace generalized edema present. Heart hugger, SCDs, antiembolism stockings in place. - Gastrointestinal Gastrointestinal Comment(s): Abdomen soft, nontender, nondistended. Active bowel sounds 4 quadrants. Tolerating tube feedings at 54 mL/h through OG tube. - Genitourinary Genitourinary Comment(s): Lea present and clear, yellow urine. Output 45-75 mL/h overnight. - Integumentary Integumentary Comment(s): Skin is warm and dry. Anterior chest incision well approximated and covered with dry intact dressing. Right lower extremity EVH site well x-ray, DREW drain present with 180 mL's serous drainage overnight. - Neurologic Neurologic Comment(s): Does open eyes but does not track or follow commands. - Psychiatric Psychiatric Comment(s): Currently sedated on mechanical ventilation. - Allied health notes Allied health notes reviewed: nursing - Labs CBC & Chem 7: 06/12/17 04:35 06/12/17 04:35 Labs: Abnormal Lab Results - Last 24 Hours (Table) 06/11/17 06/11/17 06/11/17 Range/Units 10:07 11:53 12:19 RBC (3.80-5.40) m/uL Hgb (11.4-16.0) gm/dL Hct (34.0-46.0) % RDW (11.5-15.5) % Neutrophils # (1.3-7.7) k/uL ABG pH (7.35-7.45) ABG pO2 56 L (83-108) mmHg ABG HCO3 27 H (21-25) mmol/L ABG Total CO2 28 H (19-24) mmol/L ABG O2 Saturation 87.8 L (94-97) % Chloride (98-107) mmol/L BUN (7-17) mg/dL Glucose (74-99) mg/dL POC Glucose (mg/dL) 178 H 181 H (75-99) mg/dL Magnesium (1.6-2.3) mg/dL Total Protein (6.3-8.2) g/dL Albumin (3.5-5.0) g/dL 06/11/17 06/11/17 06/11/17 Range/Units 14:42 20:05 22:09 RBC (3.80-5.40) m/uL Hgb (11.4-16.0) gm/dL Hct (34.0-46.0) % RDW (11.5-15.5) % Neutrophils # (1.3-7.7) k/uL ABG pH (7.35-7.45) ABG pO2 (83-108) mmHg ABG HCO3 (21-25) mmol/L ABG Total CO2 (19-24) mmol/L ABG O2 Saturation (94-97) % Chloride (98-107) mmol/L BUN (7-17) mg/dL Glucose (74-99) mg/dL POC Glucose (mg/dL) 116 H 165 H 183 H (75-99) mg/dL Magnesium (1.6-2.3) mg/dL Total Protein (6.3-8.2) g/dL Albumin (3.5-5.0) g/dL 06/11/17 06/12/17 06/12/17 Range/Units 23:49 00:16 04:05 RBC (3.80-5.40) m/uL Hgb (11.4-16.0) gm/dL Hct (34.0-46.0) % RDW (11.5-15.5) % Neutrophils # (1.3-7.7) k/uL ABG pH (7.35-7.45) ABG pO2 (83-108) mmHg ABG HCO3 (21-25) mmol/L ABG Total CO2 (19-24) mmol/L ABG O2 Saturation (94-97) % Chloride (98-107) mmol/L BUN (7-17) mg/dL Glucose (74-99) mg/dL POC Glucose (mg/dL) 133 H 136 H 121 H (75-99) mg/dL Magnesium (1.6-2.3) mg/dL Total Protein (6.3-8.2) g/dL Albumin (3.5-5.0) g/dL 06/12/17 06/12/17 06/12/17 Range/Units 04:06 04:35 04:35 RBC 3.01 L (3.80-5.40) m/uL Hgb 8.7 L (11.4-16.0) gm/dL Hct 26.9 L (34.0-46.0) % RDW 16.0 H (11.5-15.5) % Neutrophils # 7.8 H (1.3-7.7) k/uL ABG pH 7.47 H (7.35-7.45) ABG pO2 79 L (83-108) mmHg ABG HCO3 27 H (21-25) mmol/L ABG Total CO2 28 H (19-24) mmol/L ABG O2 Saturation (94-97) % Chloride 110 H (98-107) mmol/L BUN 45 H (7-17) mg/dL Glucose 168 H (74-99) mg/dL POC Glucose (mg/dL) (75-99) mg/dL Magnesium 2.6 H (1.6-2.3) mg/dL Total Protein 5.5 L (6.3-8.2) g/dL Albumin 2.6 L (3.5-5.0) g/dL 06/12/17 06/12/17 06/12/17 Range/Units 05:56 07:46 09:03 RBC (3.80-5.40) m/uL Hgb (11.4-16.0) gm/dL Hct (34.0-46.0) % RDW (11.5-15.5) % Neutrophils # (1.3-7.7) k/uL ABG pH (7.35-7.45) ABG pO2 (83-108) mmHg ABG HCO3 (21-25) mmol/L ABG Total CO2 (19-24) mmol/L ABG O2 Saturation (94-97) % Chloride (98-107) mmol/L BUN (7-17) mg/dL Glucose (74-99) mg/dL POC Glucose (mg/dL) 207 H 170 H 168 H (75-99) mg/dL Magnesium (1.6-2.3) mg/dL Total Protein (6.3-8.2) g/dL Albumin (3.5-5.0) g/dL - Imaging and Cardiology Chest x-ray: report reviewed, image reviewed Assessment and Plan (1) Hypertension Current Visit: Yes Status: Chronic Code(s): I10 - ESSENTIAL (PRIMARY) HYPERTENSION SNOMED Code(s): 09875142 (2) Hyperlipidemia Current Visit: Yes Status: Chronic Code(s): E78.5 - HYPERLIPIDEMIA, UNSPECIFIED SNOMED Code(s): 78106748 (3) Diabetes mellitus Current Visit: Yes Status: Chronic Code(s): E11.9 - TYPE 2 DIABETES MELLITUS WITHOUT COMPLICATIONS SNOMED Code(s): 66867984 (4) Previous myocardial infarction older than 8 weeks Current Visit: No Status: Resolved Code(s): I25.2 - OLD MYOCARDIAL INFARCTION SNOMED Code(s): 0738001 (5) History of heart artery stent Current Visit: Yes Status: Chronic Code(s): Z95.5 - PRESENCE OF CORONARY ANGIOPLASTY IMPLANT AND GRAFT SNOMED Code(s): 597437327 (6) Tobacco dependence in remission Current Visit: No Status: Resolved Code(s): F17.201 - NICOTINE DEPENDENCE, UNSPECIFIED, IN REMISSION SNOMED Code(s): 965615976 (7) Family history of premature coronary artery disease Current Visit: Yes Status: Chronic Code(s): Z82.49 - FAMILY HX OF ISCHEM HEART DIS AND OTH DIS OF THE CIRC SYS SNOMED Code(s): 544584941 (8) History of right breast cancer Current Visit: No Status: Resolved Code(s): Z85.3 - PERSONAL HISTORY OF MALIGNANT NEOPLASM OF BREAST SNOMED Code(s): 147351469 (9) Non-STEMI (non-ST elevated myocardial infarction) Current Visit: Yes Status: Acute Code(s): I21.4 - NON-ST ELEVATION (NSTEMI) MYOCARDIAL INFARCTION SNOMED Code(s): 558919089 (10) Morbid obesity with BMI of 40.0-44.9, adult Current Visit: Yes Status: Chronic Code(s): E66.01 - MORBID (SEVERE) OBESITY DUE TO EXCESS CALORIES; Z68.41 - BODY MASS INDEX (BMI) 40.0-44.9, ADULT SNOMED Code(s): 889180994 Plan: 1. Continue aspirin, statin, Plavix, beta doretha. Will increase beta doretha as tolerated. 2. Continue amiodarone for A. fib prophylaxis. No anticoagulation at this time. 3. Ventilator management, antibiotics per pulmonology. Likely will need tracheostomy placement . Will obtain consent from when he visits today. 4. GI/DVT prophylaxis. 5. Will monitor daily labs and x-rays. 6. Insulin drip per primary care service. 7. Keep Lea for strict accurate I and O's. 8. Continue tube feedings for maximal nutrition per dietary recommendations. 9. No diuresis today. 10. More recommendations to follow. Time with Patient: Greater than 30
[2017-06-12 10:01] LABS: Glucose,Whole Blood 132 mg/dL (75-99)
[2017-06-12 11:10] LABS: Glucose,Whole Blood 145 mg/dL (75-99)
[2017-06-12] MEDS: INSULIN REGULAR 100 UNIT in SODIUM CHLORIDE 0.9% 100 ML IV SCH ×2 (11:20→23:28)
--- NOTE | 2017-06-12 11:56 | P.PN ---
Subjective Progress Note Date: 05/30/17 Principal diagnosis: Unstable angina Patient is a 66 alert female with a known history of coronary disease and stent placement in 2010, hypertension, diabetes type 2, hyperlipidemia initially presented to [facility] with complaints of chest pressure and left jaw discomfort. Patient also having shortness of breath associated. Patient was also found have leg swelling left more than right. Pt. has been having these worsening symptoms for the past 3 weeks. No fever no chills. Patient recently had pneumonia and required to have thoracentesis. EKG showed normal sinus rhythm at Hospital Chest x-ray showed right lower lobe infiltrate and small effusion improved from previous study Blood sugar is 446 Initial troponin level is 0.03 and 0.038 Patient does have orthopnea at home. Otherwise saturating well on room air,. Cardiology was consulted. 05/29/2017 Currently patient is sitting in the chair comfortably. Shortness of breath much improved. As well as leg swelling. Patient underwent cardiac catheterization today showed significant multivessel coronary calcification. Cardiac surgery has been consulted to evaluate for coronary artery bypass graft. Patient is undergoing preoperative evaluation. Plavix has been held. Lasix changed to by mouth. Otherwise currently patient denied any chest pain or shortness of breath. No nausea vomiting. No headache or dizziness. 05/30/2017 Patient denied any complaints of chest pain. Shortness of breath improved. CT surgery evaluating for CABG. Continued on current management and no acute overnight issues. All other review of systems negative except the above Current medications reviewed Active Medications Albuterol/Ipratropium (Duoneb 0.5 Mg-3 Mg/3 Ml Soln) 3 ml INHALATION RT-TID [facility] Last Admin: 05/29/17 19:39 Dose: 3 ml Alprazolam (Xanax) 0.25 mg PO Q6HR PRN PRN Reason: Mild Anxiety Alprazolam (Xanax) 0.5 mg PO Q6HR PRN PRN Reason: Moderate Anxiety Amlodipine Besylate (Norvasc) 5 mg PO DAILY [facility] Last Admin: 05/29/17 08:37 Dose: 5 mg Anastrozole (Arimidex) 1 mg PO DAILY [facility] Last Admin: 05/29/17 08:39 Dose: 1 mg Aspirin (Aspirin) 81 mg PO DAILY [facility] Atorvastatin Calcium (Lipitor) 40 mg PO HS [facility] Last Admin: 05/29/17 21:22 Dose: 40 mg Budesonide (Pulmicort) 0.5 mg INHALATION RT-BID [facility] Last Admin: 05/29/17 19:39 Dose: 0.5 mg Clonidine (Catapres) 0.1 mg PO DAILY [facility] Last Admin: 05/29/17 08:37 Dose: 0.1 mg Furosemide (Lasix) 40 mg PO BID [facility] Last Admin: 05/29/17 21:22 Dose: 40 mg Insulin Aspart (Novolog) 6 unit SQ W/LUNCH [facility] Last Admin: 05/29/17 13:38 Dose: Not Given Insulin Aspart (Novolog) 8 unit SQ BID-W/MEALS [facility] Last Admin: 05/29/17 17:51 Dose: 8 unit Insulin Detemir (Levemir) 60 unit SQ DAILY [facility] Last Admin: 05/29/17 15:30 Dose: 60 unit Isosorbide Mononitrate (Imdur) 60 mg PO DAILY [facility] Last Admin: 05/29/17 08:37 Dose: 60 mg Lisinopril (Zestril) 20 mg PO DAILY [facility] Last Admin: 05/29/17 08:37 Dose: 20 mg Metoprolol Tartrate (Lopressor) 25 mg PO BID [facility] Last Admin: 05/29/17 21:22 Dose: 25 mg Miscellaneous Information (Rx Info: Iv Contrast Was Given) 1 each MISCELLANE DAILY PRN PRN Reason: Per Protocol Stop: 05/31/17 13:02 Montelukast Sodium (Singulair) 10 mg PO HS [facility] Last Admin: 05/29/17 21:22 Dose: 10 mg Nitroglycerin (Nitrostat) 0.4 mg SUBLINGUAL Q5M PRN PRN Reason: Chest Pain Fosamax 70 Mg 70 mg PO Daniels@0630 [facility] Pantoprazole Sodium (Protonix) 40 mg PO AC-BRKFST [facility] Last Admin: 05/29/17 06:39 Dose: 40 mg Objective - Vital Signs Vital signs: Vital Signs Temp 97.0 F L 05/30/17 08:00 Pulse 95 05/30/17 20:15 Resp 18 05/30/17 03:45 BP 134/69 05/30/17 16:00 Pulse Ox 98 05/30/17 19:54 Intake & Output 05/30/17 05/30/17 05/31/17 06:59 18:59 06:59 Intake Total 720 158.158 Output Total 1100 Balance -380 158.158 Weight 105.4 kg 105.4 kg Intake: Intake, IV Titration 158.158 Amount Heparin Sod,Pork in 0.45% 158.158 NaCl 25,000 unit In 0.45 % NaCl 1 500ml.bag @ 9.5 UNITS/KG/HR 20.02 mls/hr IV .Q24H OLVIN Rx#: [id number] Oral 720 Output: Urine 1100 Other: # Voids 1 - Exam Patient is lying in the bed comfortably, no acute distress, awake alert and oriented.. HEENT: Normocephalic. Neck is supple. Pupils reactive. Nostrils clear. Oral cavity is moist. Ears reveal no drainage. Neck reveals no JVD, carotid bruits, or thyromegaly. CHEST EXAMINATION: Trachea is central. Symmetrical expansion. Right basilar crackles and minimal expiratory wheeze. Positive rhonchi CARDIAC: Normal S1, S2 with no gallops. No murmurs ABDOMEN: Soft. Bowel sounds normal. No organomegaly. No abdominal bruits. Extremities: 3+ left lower extremity and 2+ right lower extremity edema. No clubbing or cyanosis Neurologically awake, alert, oriented x3 with well-coordinated movements. No focal deficits noted Skin: No rash or skin lesions. Psychiatric: Coperative. Nonsuicidal Musculoskeletal: No joint swelling or deformity. Normal range of motion. - Labs CBC & Chem 7: 06/12/17 04:35 06/12/17 04:35 Labs: Abnormal Lab Results - Last 24 Hours (Table) 05/29/17 05/30/17 05/30/17 Range/Units 15:07 06:00 06:21 Lymphocytes # (1.0-4.8) k/uL APTT (22.0-30.0) sec Glucose 176 H (74-99) mg/dL POC Glucose (mg/dL) 161 H (75-99) mg/dL Hemoglobin A1c 9.4 H (4.0-6.0) % 05/30/17 05/30/17 05/30/17 Range/Units 10:45 10:45 11:16 Lymphocytes # 0.8 L (1.0-4.8) k/uL APTT 21.3 L (22.0-30.0) sec Glucose (74-99) mg/dL POC Glucose (mg/dL) 283 H (75-99) mg/dL Hemoglobin A1c (4.0-6.0) % 05/30/17 05/30/17 Range/Units 16:27 20:54 Lymphocytes # (1.0-4.8) k/uL APTT (22.0-30.0) sec Glucose (74-99) mg/dL POC Glucose (mg/dL) 315 H 285 H (75-99) mg/dL Hemoglobin A1c (4.0-6.0) % Microbiology - Last 24 Hours (Table) 05/29/17 15:14 Urine Culture - Preliminary Urine,Voided 05/29/17 15:14 Nasal Screen MRSA/MSSA (RADHA) - Preliminary Nasal Swab Assessment and Plan Assessment: Atypical chest pain/pressure radiating to the jaw and left arm. Status post cardiac catheterization Significant multivessel coronary sensation Interstitial edema. Possible acute CHF but BNP is 399 Recent pneumonia and pleural effusion requiring thoracentesis History of coronary artery disease with stent placement to RCA into the 11 Diabetes type 2 insulin-dependent Hypertension Hyperlipidemia Morbid obesity with BMI 41.3 Obstructive sleep apnea on BiPAP GERD Plan: Patient will be continued on telemetry monitoring. Lasix dose changed to 40 mg twice a day by mouth. Continue with home medications. Lower extremity duplex is negative for DVT. Insulin dosing and CBG monitoring Cardiology is following and preoperative evaluation for cardiac surgery.. Further recommendations based on the clinical course. Time with Patient: Greater than 30
--- NOTE | 2017-06-12 12:20 | PN ---
PROGRESS NOTE A 66-year-old lady who has CAD, status post CABG, has prolonged vent requiring respiratory failure, has atrial fibrillation and is intermittently developing episodes of atrial fibrillation. She is postop day #10. We have not been able to wean and extubate her at this time. PHYSICAL EXAM: Patient is intubated on vent, sedated. Heart rate is 80. Blood pressure is 120/69, respiratory rate is 18. Chest exam reveals diminished air entry at the bases. Heart exam reveals first and second heart sounds. No gallop. Abdomen is soft. Exam of the extremities did not reveal edema. Peripheral pulses are palpable. LABS: Show a hemoglobin of 8.7, platelet count of 212. Potassium is 4.4, creatinine is 0.8. AST and ALT are within normal limits. ASSESSMENT: 1. Coronary artery disease, status post coronary artery bypass grafting. 2. Postoperative atrial fibrillation. PLAN: Patient will continue on Cordarone 200 b.i.d., aspirin, Lipitor, Plavix, Lopressor. Patient is not on any anticoagulation as per cardiothoracic surgery. MMODL / IJN: [id number] /
[2017-06-12 12:37] LABS: Glucose,Whole Blood 149 mg/dL (75-99)
[2017-06-12 13:31] LABS: Glucose,Whole Blood 137 mg/dL (75-99)
[2017-06-12 14:17] LABS: Glucose,Whole Blood 133 mg/dL (75-99)
[2017-06-12 15:18] LABS: Glucose,Whole Blood 128 mg/dL (75-99)
--- NOTE | 2017-06-12 15:26 | PN ---
PROGRESS NOTE DATE OF SERVICE: 06/12/2017 This is a 66-year-old woman who was admitted after CAD, CABG is being closely monitored. Patient is mechanically ventilated at this time. Patient is being followed by Dr. Ott as well as Cardiothoracic Surgery as well. The possibility of tracheostomy is also being considered. REVIEW OF SYSTEMS: Could not be taken because the patient is mechanically ventilated and sedated. CURRENT MEDICATIONS: Reviewed, include: 1. Tylenol 1000 mg q.6 p.r.n. 2. DuoNeb q.i.d. and p.r.n. 3. Cordarone 200 mg p.o. b.i.d. 4. Vitamin C 500 mg p.o. b.i.d. 5. Aspirin 81 mg daily. 6. Lipitor 40 mg daily. 7. Dulcolax 10 mg p.r.n. 8. Pulmicort 1 mg b.i.d. 9. Peridex 15 mL b.i.d. 10.Plavix 75 mg p.o. daily. 11.Iron sulfate 325 mg p.o. daily. 12.Heparin 5000 subcu q.8. 13.Lactating ringers. 15.Replacement Singular. 16.Lopressor. 17.morphine sulfate. 18.Zofran. 19.Protonix. 20.K-Lyte. 21.Propofol. 22.Seroquel S. 23.Saline flush. PHYSICAL EXAM: Patient mechanically sedated. Pulse is 89, blood pressure is 120/75, respiration 30, temperature 100.9, pulse ox 94% on 50% FiO2, vent settings noted. HEENT: Oral mucosa moist. Neck is no jugular venous distention. No lymph enlargement. CARDIOVASCULAR SYSTEM: S1, S2, muffled. RESPIRATORY: Breath sounds diminished at the bases, a few scattered rhonchi and crackles. ABDOMEN: Soft, nontender. LEGS: No edema, no swelling. LABS: WBC 9.2, hemoglobin is 8.7, ABG is noted, glucose noted. ASSESSMENT: 1. Status post coronary artery disease, coronary artery bypass grafting. 2. Acute hypoxic respiratory failure, on mechanical ventilation. 3. Multivessel coronary artery disease followed by cardiac arrest with ventricular fibrillation on the floor. 4. Morbid obesity. 5. History of diabetes mellitus type 2. 6. Gastroesophageal reflux disease. 7. Hyperlipidemia. 8. Sleep apnea. 9. History of right mastectomy. 10.Right axillary lesion history. 11.Bilateral nephrolithiasis. 12.Left leg skin nodule history. 13.Hypertension. 14.Paroxysmal atrial fibrillation history. 15.Pneumonia with Enterobacter plaque and cultures. RECOMMENDATION: Continue with the current medication, continue with symptomatic treatment. Otherwise, continue with the antibiotics. Patient is running some mild fever. I would recommend iron cultures, otherwise at this time I would recommend closely follow with multiple consultants and further recommendations to follow. [id number] / IJN: [id number] / JESSICA
[2017-06-12 16:21] LABS: Glucose,Whole Blood 144 mg/dL (75-99)
[2017-06-12] MEDS: PROPOFOL 1,000 MG in EMPTY BAG 1 BAG IV SCH (16:36)
[2017-06-12 17:08] LABS: Glucose,Whole Blood 135 mg/dL (75-99)
[2017-06-12] MEDS: FERROUS SULFATE ORAL ELIXIR 300 MG/5 ML CUP OG-TUBE SCH (17:35)
[2017-06-12] MEDS ORDERED: DIGOXIN 250 MCG/ML 2 ML AMP IVP STA (17:52)
[2017-06-12 17:59] LABS: Glucose,Whole Blood 126 mg/dL (75-99)
--- NOTE | 2017-06-12 18:53 | EEG ---
ELECTROENCEPHALOGRAM REPORT DATE OF SERVICE: 06/12/2017. REASON FOR TESTING: Altered mental status. DESCRIPTION OF THE PROCEDURE: This EEG was performed using a 21 channel digital electroencephalograph, following international 10-20 system. DESCRIPTION OF THE RECORDING: From the beginning of the tracing, and with patient's eyes closed, the background rhythm was mostly consisting of 7 Hz theta frequency in the posterior occipital leads. No obvious asymmetry is seen. Occasional lead artifacts are noticed cough. Photic stimulation was performed with no driving response seen. No pathological waves were elicited. Hyperventilation was not performed. No epileptiform discharges were seen. Her EKG lead showed an irregularly irregular rhythm with a normal rate. INTERPRETATION: This EEG is abnormal due to the presence of generalized slowing of the background rhythm, mostly in the theta range. This is consistent with mild encephalopathy. No epileptiform discharges were seen. The absence of epileptiform discharges does not rule out the diagnosis of epilepsy, therefore clinical correlation is recommended. Of note, her EKG lead showed an irregularly irregular rhythm. MMODL / IJN: [id number] /
[2017-06-12 19:00] LABS: Glucose,Whole Blood 126 mg/dL (75-99)
[2017-06-12 20:01] LABS: Glucose,Whole Blood 112 mg/dL (75-99)
[2017-06-12 20:47] LABS: Glucose,Whole Blood 107 mg/dL (75-99)
[2017-06-12 22:12] LABS: Glucose,Whole Blood 112 mg/dL (75-99)
[2017-06-12] MEDS: MONTELUKAST 10 MG TAB PO SCH (22:14)
[2017-06-12] MEDS: SENNOSIDES-DOCUSATE SODIUM 1 EACH TAB PO SCH (22:18)
[2017-06-12 23:10] LABS: Glucose,Whole Blood 148 mg/dL (75-99)
[2017-06-12 23:33] LABS: Glucose,Whole Blood 144 mg/dL (75-99)
[2017-06-12 23:55] LABS: Glucose,Whole Blood 133 mg/dL (75-99)
[2017-06-13] MEDS: LACTATED RINGERS 1,000 ML IV SCH (00:18)
[2017-06-13] MEDS: HEPARIN SODIUM,PORCINE 5,000 UNIT/ML 1 ML VIAL SQ SCH ×3 (00:19→15:40)
[2017-06-13] MEDS: MEROPENEM 1 GM in SODIUM CHLORIDE 0.9% 100 ML IVPB SCH ×4 (00:19→23:10)
[2017-06-13] MEDS: PROPOFOL 1,000 MG in EMPTY BAG 1 BAG IV SCH ×4 (00:20→23:10)
[2017-06-13] MEDS: IPRATROPIUM-ALBUTEROL 3 ML NEB INHALATION SCH ×6 (00:46→23:06)
[2017-06-13] MEDS: DIGOXIN 250 MCG/ML 2 ML AMP IVP SCH ×2 (00:51→04:36)
[2017-06-13 01:01] LABS: Glucose,Whole Blood 118 mg/dL (75-99)
[2017-06-13 02:06] LABS: Glucose,Whole Blood 123 mg/dL (75-99)
[2017-06-13 03:04] LABS: Glucose,Whole Blood 141 mg/dL (75-99)
[2017-06-13 04:04] LABS: Glucose,Whole Blood 123 mg/dL (75-99)
[2017-06-13 04:14] LABS: ABG Base Excess 5.2 mmol/L; ABG HCO3 29 mmol/L (21-25); ABG Oxygen Saturation 96.1 % (94-97); ABG PCO2 37 mmHg (35-45); ABG PH 7.49 (7.35-7.45); ABG PO2 78 mmHg (83-108); ABG TCO2 30 mmol/L (19-24)
[2017-06-13 04:16] LABS: Anisocytosis Slight; Basophils % (A) 0 %; Eosinophils # (A) 0.1 k/uL (0-0.7); Eosinophils % (A) 1 %; HCT 27.2 % (34.0-46.0); HGB 8.3 gm/dL (11.4-16.0); Hypochromasia Marked; Lymphocytes # (A) 0.9 k/uL (1.0-4.8); Lymphocytes % (A) 11 %; MCH 27.8 pg (25.0-35.0); MCHC 30.4 g/dL (31.0-37.0); MCV 91.7 fL (80.0-100.0); Mean Platelet Volume 9.6; Monocytes # (A) 0.3 k/uL (0-1.0); Monocytes % (A) 4 %; Neutrophils % (A) 83 %; Platelet Count 202 k/uL (150-450); Poikilocytosis Slight; RBC 2.97 m/uL (3.80-5.40); RDW 16.2 % (11.5-15.5); WBC 8.4 k/uL (3.8-10.6)
[2017-06-13 04:27] LABS: Albumin 2.6 g/dL (3.5-5.0); Calcium 8.9 mg/dL (8.4-10.2); Magnesium 2.8 mg/dL (1.6-2.3); Potassium 4.5 mmol/L (3.5-5.1); Total Bilirubin 0.7 mg/dL (0.2-1.3); Total Protein 5.6 g/dL (6.3-8.2)
[2017-06-13 05:00] LABS: Glucose,Whole Blood 121 mg/dL (75-99)
[2017-06-13 05:55] LABS: Glucose,Whole Blood 138 mg/dL (75-99)
[2017-06-13 07:10] LABS: Glucose,Whole Blood 121 mg/dL (75-99)
[2017-06-13] MEDS: BUDESONIDE 1 MG/2 ML NEBU INHALATION SCH ×2 (07:39→19:50)
--- NOTE | 2017-06-13 07:57 | XR ---
EXAMINATION TYPE: XR chest 1V portable DATE OF EXAM: 06/13/2017 CLINICAL HISTORY: Difficulty breathing post open cardiac surgery progress study. TECHNIQUE: Single AP portable semiupright view of the chest is obtained. COMPARISON: Chest x-ray from one day earlier and older studies. FINDINGS: An endotracheal tube, orogastric tube, and left-sided PICC line are all stable in appearan ce. Sternal wires and mediastinal clips are redemonstrated. There is persistent cardiomegaly with central vascular congestion and small to moderate-sized left pl eural effusion with left basilar atelectasis and/or infiltrate are redemonstrated. There is new patch y right basilar atelectasis noted. Visualized osseous structures are intact. IMPRESSION: Cardiomegaly with suspected small to moderate-sized left pleural effusion and associated left basilar atelectasis and/or infiltrate all redemonstrated. New patchy right basilar atelectasis i s noted.
[2017-06-13 08:02] LABS: Glucose,Whole Blood 110 mg/dL (75-99)
[2017-06-13] MEDS: FERROUS SULFATE ORAL ELIXIR 300 MG/5 ML CUP OG-TUBE SCH ×2 (08:05→16:57)
[2017-06-13] MEDS: POTASSIUM BICARBONATE/CIT AC 20 MEQ TABLET.EFF PO SCH (08:05)
[2017-06-13] MEDS: AMIODARONE 200 MG TAB PO SCH ×2 (08:05→20:19)
[2017-06-13] MEDS: ATORVASTATIN 40 MG TAB PO SCH (08:06)
[2017-06-13] MEDS: ASCORBIC ACID 500 MG TAB PO SCH ×2 (08:06→20:18)
[2017-06-13] MEDS: CHLORHEXIDINE GLUCONATE 15 ML CUP MUCOUS MEM SCH ×2 (08:06→20:22)
[2017-06-13] MEDS: ASPIRIN 81 MG PO SCH (08:06)
[2017-06-13] MEDS: CLOPIDOGREL 75 MG TAB PO SCH (08:06)
[2017-06-13] MEDS: METOPROLOL TARTRATE 50 MG TAB PO SCH ×2 (08:06→20:18)
[2017-06-13] MEDS: PANTOPRAZOLE 40 MG/10 ML VIAL IVP SCH (08:07)
[2017-06-13] MEDS: QUEtiapine 25 MG TAB PO SCH ×2 (08:07→20:18)
[2017-06-13] MEDS ORDERED: DIGOXIN 125 MCG TAB OG-TUBE SCH (09:00)
[2017-06-13 09:10] LABS: Glucose,Whole Blood 150 mg/dL (75-99)
--- NOTE | 2017-06-13 09:37 | P.PN ---
Subjective Progress Note Date: 06/13/17 Principal diagnosis: Diffuse severe calcific coronary artery disease. Non-ST elevation myocardial infarction. Preserved left ventricular function with preoperative ejection fraction of 50-55%. Mild mitral valve regurgitation. Status post ventricular fibrillation arrest. Previous medical history of hypertension, hyperlipidemia, insulin dependent diabetes mellitus with current hemoglobin A1c 9.4%, previous myocardial infarction with stent placement to the RCA in 2010, obesity, obstructive sleep apnea, recent pneumonia in March 2017, previous tobacco dependence with preoperative FEV1 77% of predicted and preoperative arterial blood gas on room air pH 7.46, pCO2 40, pO2 68, HCO3 28, right breast cancer with lumpectomy and radiation, and family history of premature coronary artery disease. POD #11 urgent coronary artery bypass grafting 4 using the left internal mammary artery to the left anterior descending artery, reverse saphenous vein graft from the aorta to the distal posterior descending artery, reverse saphenous vein graft from the aorta to the ramus intermedius artery, reverse saphenous vein graft from the aorta to the second diagonal artery. Endoscopic harvesting of the right greater saphenous vein. Intraoperative transesophageal echocardiogram and epi-aortic scanning. Intraoperative graft flow measurements using the [employer]ist[employer] system. Status post preoperative ventricular fibrillation arrest with successful resuscitation. Postoperative prolonged mechanical ventilation secondary to hemodynamic instability, an unexpected but potential outcome of surgery. Postoperative atrial fibrillation, an unexpected but potential outcome of surgery. POD #7 bronchoscopy per pulmonology, bronchial washings positive for Enterobacter cloacae Postoperative acute blood loss anemia, a potential expected outcome of surgery. Patient currently laying in bed in no acute distress on mechanical ventilation. Patient had CT of the brain Sunday and Sunday which demonstrated no acute changes. Patient continues to be given weaning trials without success, patient opens eyes but does not track and does not follow commands. Patient continues to have episodes of atrial fibrillation with rapid ventricular response. Objective - Vital Signs Vital signs: Vital Signs Temp 98 F 06/13/17 04:00 Pulse 111 H 06/13/17 08:14 Resp 27 H 06/13/17 07:00 BP 144/69 06/09/17 10:00 Pulse Ox 100 06/13/17 08:00 Intake & Output 06/12/17 06/13/17 06/13/17 18:59 06:59 18:59 Intake Total 3008.599 6563.217 198.167 Output Total 885 900 100 Balance 894.433 480.217 98.167 Weight 125 kg Intake: IV 353 376 23 0.9 for pressure 33 36 3 LR 220 240 20 Meropenem 1 gm In Sodium 100 100 Chloride 0.9% 100 ml @ 200 mls/hr IVPB Q8HR [facility] Rx#:[id number] Intake, IV Titration 106.433 210.217 21.167 Amount Insulin Regular 100 unit 106.433 110.217 21.167 In Sodium Chloride 0.9% 100 ml @ Per Protocol IV .Q0M [facility] Rx#:[id number] Propofol 1,000 mg In 100.00 Empty Bag 1 bag @ Titrate IV .Q0M [facility] Rx#: [id number] Oral 180 Tube Feeding 810 594 54 Other 330 200 100 Output: Drainage 250 260 Right Lower Medial Calf 250 260 Urine 635 640 100 Other: Voiding Method Indwelling Catheter Indwelling Catheter # Voids 2 ABP, PAP, CO, CI - Last Documented Arterial Blood Pressure 147/81 Pulmonary Artery Pressure 33/21 Cardiac Output 5 Cardiac Index 2.4 - Constitutional General appearance: Present: no acute distress, obese - Respiratory Details: Lungs sounds diminished bilaterally. Respirations even, nonlabored. Currently on mechanical ventilation. Current settings assist control mode, FiO2 50%, tidal 0.400, respiratory rate 20, PEEP 10. ABGs this morning 7.49/37/78/29/5.2/ 96% on 50% FiO2. - Cardiovascular Details: S1, S2 present. Irregular rate and rhythm, atrial fibrillation on telemetry. Sternum stable. Palpable peripheral pulses bilaterally. Generalized edema present. Left radial arterial line, left brachial PICC line present. Heart hugger, SCDs, antiembolism stockings present. - Gastrointestinal Gastrointestinal Comment(s): Abdomen soft, nontender, nondistended. Active bowel sounds 4 quadrants. OG tube present with tube feeding infusing at 54 mL/h, minimal residual per nursing. - Genitourinary Genitourinary Comment(s): Lea present draining clear, yellow urine. Output 40-70 mL/h overnight. - Integumentary Integumentary Comment(s): Skin is warm and dry without evidence of good perfusion. Anterior chest incision well approximated and covered with dry intact dressing. Right lower extremity EVH site well approximated, DREW drain present with 260 mL serous drainage overnight. - Neurologic Neurologic Comment(s): Currently off sedation. Will open eyes, but does not track or follow any commands. - Musculoskeletal Musculoskeletal: Present: generalized weakness - Allied health notes Allied health notes reviewed: nursing - Labs CBC & Chem 7: 06/13/17 04:00 06/13/17 04:00 Labs: Abnormal Lab Results - Last 24 Hours (Table) 06/12/17 06/12/17 06/12/17 Range/Units 09:57 11:08 12:31 RBC (3.80-5.40) m/uL Hgb (11.4-16.0) gm/dL Hct (34.0-46.0) % MCHC (31.0-37.0) g/dL RDW (11.5-15.5) % Lymphocytes # (1.0-4.8) k/uL ABG pH (7.35-7.45) ABG pO2 (83-108) mmHg ABG HCO3 (21-25) mmol/L ABG Total CO2 (19-24) mmol/L Sodium (137-145) mmol/L Chloride (98-107) mmol/L BUN (7-17) mg/dL Glucose (74-99) mg/dL POC Glucose (mg/dL) 132 H 145 H 149 H (75-99) mg/dL Magnesium (1.6-2.3) mg/dL Total Protein (6.3-8.2) g/dL Albumin (3.5-5.0) g/dL 06/12/17 06/12/17 06/12/17 Range/Units 13:28 14:16 15:15 RBC (3.80-5.40) m/uL Hgb (11.4-16.0) gm/dL Hct (34.0-46.0) % MCHC (31.0-37.0) g/dL RDW (11.5-15.5) % Lymphocytes # (1.0-4.8) k/uL ABG pH (7.35-7.45) ABG pO2 (83-108) mmHg ABG HCO3 (21-25) mmol/L ABG Total CO2 (19-24) mmol/L Sodium (137-145) mmol/L Chloride (98-107) mmol/L BUN (7-17) mg/dL Glucose (74-99) mg/dL POC Glucose (mg/dL) 137 H 133 H 128 H (75-99) mg/dL Magnesium (1.6-2.3) mg/dL Total Protein (6.3-8.2) g/dL Albumin (3.5-5.0) g/dL 06/12/17 06/12/17 06/12/17 Range/Units 16:20 17:06 17:58 RBC (3.80-5.40) m/uL Hgb (11.4-16.0) gm/dL Hct (34.0-46.0) % MCHC (31.0-37.0) g/dL RDW (11.5-15.5) % Lymphocytes # (1.0-4.8) k/uL ABG pH (7.35-7.45) ABG pO2 (83-108) mmHg ABG HCO3 (21-25) mmol/L ABG Total CO2 (19-24) mmol/L Sodium (137-145) mmol/L Chloride (98-107) mmol/L BUN (7-17) mg/dL Glucose (74-99) mg/dL POC Glucose (mg/dL) 144 H 135 H 126 H (75-99) mg/dL Magnesium (1.6-2.3) mg/dL Total Protein (6.3-8.2) g/dL Albumin (3.5-5.0) g/dL 06/12/17 06/12/17 06/12/17 Range/Units 18:58 19:59 20:44 RBC (3.80-5.40) m/uL Hgb (11.4-16.0) gm/dL Hct (34.0-46.0) % MCHC (31.0-37.0) g/dL RDW (11.5-15.5) % Lymphocytes # (1.0-4.8) k/uL ABG pH (7.35-7.45) ABG pO2 (83-108) mmHg ABG HCO3 (21-25) mmol/L ABG Total CO2 (19-24) mmol/L Sodium (137-145) mmol/L Chloride (98-107) mmol/L BUN (7-17) mg/dL Glucose (74-99) mg/dL POC Glucose (mg/dL) 126 H 112 H 107 H (75-99) mg/dL Magnesium (1.6-2.3) mg/dL Total Protein (6.3-8.2) g/dL Albumin (3.5-5.0) g/dL 06/12/17 06/12/17 06/12/17 Range/Units 22:11 23:08 23:30 RBC (3.80-5.40) m/uL Hgb (11.4-16.0) gm/dL Hct (34.0-46.0) % MCHC (31.0-37.0) g/dL RDW (11.5-15.5) % Lymphocytes # (1.0-4.8) k/uL ABG pH (7.35-7.45) ABG pO2 (83-108) mmHg ABG HCO3 (21-25) mmol/L ABG Total CO2 (19-24) mmol/L Sodium (137-145) mmol/L Chloride (98-107) mmol/L BUN (7-17) mg/dL Glucose (74-99) mg/dL POC Glucose (mg/dL) 112 H 148 H 144 H (75-99) mg/dL Magnesium (1.6-2.3) mg/dL Total Protein (6.3-8.2) g/dL Albumin (3.5-5.0) g/dL 06/12/17 06/13/17 06/13/17 Range/Units 23:53 00:59 02:05 RBC (3.80-5.40) m/uL Hgb (11.4-16.0) gm/dL Hct (34.0-46.0) % MCHC (31.0-37.0) g/dL RDW (11.5-15.5) % Lymphocytes # (1.0-4.8) k/uL ABG pH (7.35-7.45) ABG pO2 (83-108) mmHg ABG HCO3 (21-25) mmol/L ABG Total CO2 (19-24) mmol/L Sodium (137-145) mmol/L Chloride (98-107) mmol/L BUN (7-17) mg/dL Glucose (74-99) mg/dL POC Glucose (mg/dL) 133 H 118 H 123 H (75-99) mg/dL Magnesium (1.6-2.3) mg/dL Total Protein (6.3-8.2) g/dL Albumin (3.5-5.0) g/dL 06/13/17 06/13/17 06/13/17 Range/Units 03:02 04:00 04:00 RBC 2.97 L (3.80-5.40) m/uL Hgb 8.3 L (11.4-16.0) gm/dL Hct 27.2 L (34.0-46.0) % MCHC 30.4 L (31.0-37.0) g/dL RDW 16.2 H (11.5-15.5) % Lymphocytes # 0.9 L (1.0-4.8) k/uL ABG pH (7.35-7.45) ABG pO2 (83-108) mmHg ABG HCO3 (21-25) mmol/L ABG Total CO2 (19-24) mmol/L Sodium 147 H (137-145) mmol/L Chloride 111 H (98-107) mmol/L BUN 55 H (7-17) mg/dL Glucose 116 H (74-99) mg/dL POC Glucose (mg/dL) 141 H (75-99) mg/dL Magnesium 2.8 H (1.6-2.3) mg/dL Total Protein 5.6 L (6.3-8.2) g/dL Albumin 2.6 L (3.5-5.0) g/dL 06/13/17 06/13/17 06/13/17 Range/Units 04:03 04:12 04:58 RBC (3.80-5.40) m/uL Hgb (11.4-16.0) gm/dL Hct (34.0-46.0) % MCHC (31.0-37.0) g/dL RDW (11.5-15.5) % Lymphocytes # (1.0-4.8) k/uL ABG pH 7.49 H (7.35-7.45) ABG pO2 78 L (83-108) mmHg ABG HCO3 29 H (21-25) mmol/L ABG Total CO2 30 H (19-24) mmol/L Sodium (137-145) mmol/L Chloride (98-107) mmol/L BUN (7-17) mg/dL Glucose (74-99) mg/dL POC Glucose (mg/dL) 123 H 121 H (75-99) mg/dL Magnesium (1.6-2.3) mg/dL Total Protein (6.3-8.2) g/dL Albumin (3.5-5.0) g/dL 06/13/17 06/13/17 06/13/17 Range/Units 05:55 07:08 08:01 RBC (3.80-5.40) m/uL Hgb (11.4-16.0) gm/dL Hct (34.0-46.0) % MCHC (31.0-37.0) g/dL RDW (11.5-15.5) % Lymphocytes # (1.0-4.8) k/uL ABG pH (7.35-7.45) ABG pO2 (83-108) mmHg ABG HCO3 (21-25) mmol/L ABG Total CO2 (19-24) mmol/L Sodium (137-145) mmol/L Chloride (98-107) mmol/L BUN (7-17) mg/dL Glucose (74-99) mg/dL POC Glucose (mg/dL) 138 H 121 H 110 H (75-99) mg/dL Magnesium (1.6-2.3) mg/dL Total Protein (6.3-8.2) g/dL Albumin (3.5-5.0) g/dL 06/13/17 Range/Units 09:09 RBC (3.80-5.40) m/uL Hgb (11.4-16.0) gm/dL Hct (34.0-46.0) % MCHC (31.0-37.0) g/dL RDW (11.5-15.5) % Lymphocytes # (1.0-4.8) k/uL ABG pH (7.35-7.45) ABG pO2 (83-108) mmHg ABG HCO3 (21-25) mmol/L ABG Total CO2 (19-24) mmol/L Sodium (137-145) mmol/L Chloride (98-107) mmol/L BUN (7-17) mg/dL Glucose (74-99) mg/dL POC Glucose (mg/dL) 150 H (75-99) mg/dL Magnesium (1.6-2.3) mg/dL Total Protein (6.3-8.2) g/dL Albumin (3.5-5.0) g/dL Microbiology - Last 24 Hours (Table) 06/12/17 17:25 Gram Stain - Preliminary Sputum Sputum Culture - Preliminary 06/12/17 14:19 Urine Culture - Preliminary Urine,Catheterized - Imaging and Cardiology Chest x-ray: report reviewed, image reviewed Assessment and Plan (1) Hypertension Current Visit: Yes Status: Chronic Code(s): I10 - ESSENTIAL (PRIMARY) HYPERTENSION SNOMED Code(s): 46404321 (2) Hyperlipidemia Current Visit: Yes Status: Chronic Code(s): E78.5 - HYPERLIPIDEMIA, UNSPECIFIED SNOMED Code(s): 94872189 (3) Diabetes mellitus Current Visit: Yes Status: Chronic Code(s): E11.9 - TYPE 2 DIABETES MELLITUS WITHOUT COMPLICATIONS SNOMED Code(s): 46025061 (4) Previous myocardial infarction older than 8 weeks Current Visit: No Status: Resolved Code(s): I25.2 - OLD MYOCARDIAL INFARCTION SNOMED Code(s): 7393890 (5) History of heart artery stent Current Visit: Yes Status: Chronic Code(s): Z95.5 - PRESENCE OF CORONARY ANGIOPLASTY IMPLANT AND GRAFT SNOMED Code(s): 183163676 (6) Tobacco dependence in remission Current Visit: No Status: Resolved Code(s): F17.201 - NICOTINE DEPENDENCE, UNSPECIFIED, IN REMISSION SNOMED Code(s): 952957392 (7) Family history of premature coronary artery disease Current Visit: Yes Status: Chronic Code(s): Z82.49 - FAMILY HX OF ISCHEM HEART DIS AND OTH DIS OF THE [facility] SNOMED Code(s): 065933290 (8) History of right breast cancer Current Visit: No Status: Resolved Code(s): Z85.3 - PERSONAL HISTORY OF MALIGNANT NEOPLASM OF BREAST SNOMED Code(s): 950798221 (9) Non-STEMI (non-ST elevated myocardial infarction) Current Visit: Yes Status: Acute Code(s): I21.4 - NON-ST ELEVATION (NSTEMI) MYOCARDIAL INFARCTION SNOMED Code(s): 354917427 (10) Morbid obesity with BMI of 40.0-44.9, adult Current Visit: Yes Status: Chronic Code(s): E66.01 - MORBID (SEVERE) OBESITY DUE TO EXCESS CALORIES; Z68.41 - BODY MASS INDEX (BMI) 40.0-44.9, ADULT SNOMED Code(s): 069567363 Plan: 1. Continue aspirin, statin, Plavix, beta doretha. Digoxin load given, will add 125 g daily. 2. Continue amiodarone for A. fib prophylaxis. No anticoagulation at this time. 3. Ventilator management, antibiotics per pulmonology. Will need tracheostomy placement . Will obtain consent from when he visits today. 4. GI/DVT prophylaxis. 5. Will monitor daily labs and x-rays. 6. Insulin drip per primary care service. 7. Keep Lea for strict accurate I and O's. 8. Continue tube feedings for maximal nutrition per dietary recommendations. 9. No diuresis today. 10. More recommendations to follow. Time with Patient: Greater than 30
--- NOTE | 2017-06-13 09:41 | P.PN ---
Subjective Progress Note Date: 06/13/17 Principal diagnosis: Status post four-vessel bypass grafting, respiratory failure Progress note dated 06/11/2017 This is a 66-year-old female with acute hypoxemic respiratory failure status post four-vessel bypass grafting, postop day #9. The patient had a history of acute cardiac arrest and was resuscitated successfully. She was intubated and placed on mechanical ventilator. She is postop day #9 status post four-vessel bypass grafting. Upper this point, the patient has not really had any major or significant weaning towards extubation. She does have a history of COPD with an FEV1 at 76% of predicted suggesting moderate disease. In addition, the patient has history of sleep apnea syndrome obesity CAD pneumonia hyperlipidemia hypertension right breast cancer with previous lumpectomy and lymph node dissection gastroesophageal reflux disease diabetes mellitus anemia and left lower lobe pneumonia secondary to Enterobacter cloacae. Currently, the chest x-ray shows either consolidation or effusion in the left lower lobe. The patient is on the ventilator with the assist control mode rate of 18 tidal volume of 500 FiO2 50% and PEEP of 5. Blood gases show a PaO2 of 69 a PaCO2 34 and pH 7.52. The patient is receiving saline IV at 70 mL an hour , propofol at 25 mics per kilogram per minute Primacor 0.125 mcg/kg/m insulin drip which is currently on hold and vital high protein tube feeds at 54 with a goal of 54 mL an hour. We will attempt a daily eruption of sedation on her and see whether or not she would tolerate a spontaneous breathing trial. I did make some vent changes dropping the volume down to 400 and increasing the rate to 28. Her spontaneous rate was about 28. She was admitted on May 28 and had her four- vessel bypass grafting on June 02. Her hospitalization was been uncomplicated by atrial fibrillation with rapid ventricular response. Progress note dated 06/12/2017 This is a 66-year-old female with acute hypoxemic respiratory failure status post four-vessel bypass grafting, postop day #10. The patient had a history of acute cardiac arrest and was resuscitated successfully. She was intubated and placed on mechanical ventilator. She is postop day #9 status post four-vessel bypass grafting. Upper this point, the patient has not really had any major or significant weaning towards extubation. She does have a history of COPD with an FEV1 at 76% of predicted suggesting moderate disease. In addition, the patient has history of sleep apnea syndrome obesity CAD pneumonia hyperlipidemia hypertension right breast cancer with previous lumpectomy and lymph node dissection gastroesophageal reflux disease diabetes mellitus anemia and left lower lobe pneumonia secondary to Enterobacter cloacae. Currently, the chest x-ray shows either consolidation or effusion in the left lower lobe. The patient is on the ventilator with the assist control mode rate of 28 tidal volume of 400 FiO2 50% and PEEP of 10. Blood gases show a PaO2 of 79 a PaCO2 36 and pH 7.47. The patient is receiving saline IV at 70 mL an hour , propofol at 25 mics per kilogram per minute Primacor 0.125 mcg/kg/m insulin drip which is currently on hold and vital high protein tube feeds at 54 with a goal of 54 mL an hour. We will attempt a daily interuption of sedation on her and see whether or not she would tolerate a spontaneous breathing trial. I did make some vent changes dropping the volume down to 400 and increasing the rate to 28. Her spontaneous rate was about 28. She was admitted on May 28 and had her four-vessel bypass grafting on June 02. Her hospitalization was been uncomplicated by atrial fibrillation with rapid ventricular response. The patient did spend about 1-1/2 hours on PSV 10 and CPAP of 5 yesterday. Unfortunately, the weaning trial was aborted because of high respiratory rate in atrial fibrillation with RVR. She is likely to be having a tracheostomy sometime this week. Again we will attempt PSV and CPAP sometime today. Prognosis on my opinion is not good for successful weaning and this patient. Progress note dated 06/13/2017 66-year-old female with a history of acute hypoxemic respiratory failure, status post four-vessel bypass grafting, postop day #11. The patient has a history of acute cardiac arrest and was resuscitated successfully. She was intubated and placed on mechanical ventilator. She is postop day 11 status post four-vessel bypass grafting. Up to this point, the patient has not really had any major significant weaning towards extubation. Will be due stop her sedation, she becomes very tachypneic and dyspneic. She also becomes very tachycardic with A. fib and RVR. She does have history of COPD with an FEV1 at 76% of predicted suggesting mild/moderate COPD. In addition, she suffers from sleep apnea syndrome obesity CAD pneumonia hyperlipidemia hypertension right breast cancer with previous lumpectomy and lymph node dissection GERD diabetes mellitus anemia left lower lobe pneumonia secondary to Enterobacter cloaca. Currently, chest x-ray continues to show a patchy infiltrate or effusion at the left lung base. There also may be some atelectasis at the left lung base. Currently she is on the assist control mode rate of 28 tidal volume 400 FiO2 50 % and PEEP of 10. With those settings, her PaO2 of 78 pCO2 was 37 and pH 7.49. She is currently on propofol at 30 mics per kilogram per minute insulin drip which is currently on hold lactated Ringer's IV at 20 mL an hour and vital high protein tube feeds at 54 mL per hour with a goal of 54 mL per hour. Today we will try a daily interuption of sedation on both pressure support and CPAP. She is apparently scheduled for a trach and PEG tomorrow by Dr. Lujan on June 14 Over the last 3 or 4 days and I been seeing her, the patient really has made no significant progress towards extubation. Objective - Vital Signs Vital signs: Vital Signs Temp 98 F 06/13/17 04:00 Pulse 111 H 06/13/17 08:14 Resp 27 H 06/13/17 07:00 BP 144/69 06/09/17 10:00 Pulse Ox 100 06/13/17 08:00 Intake & Output 06/12/17 06/13/17 06/13/17 18:59 06:59 18:59 Intake Total 5056.646 2316.217 198.167 Output Total 885 900 100 Balance 894.433 480.217 98.167 Weight 125 kg Intake: IV 353 376 23 0.9 for pressure 33 36 3 LR 220 240 20 Meropenem 1 gm In Sodium 100 100 Chloride 0.9% 100 ml @ 200 mls/hr IVPB Q8HR [facility] Rx#:[id number] Intake, IV Titration 106.433 210.217 21.167 Amount Insulin Regular 100 unit 106.433 110.217 21.167 In Sodium Chloride 0.9% 100 ml @ Per Protocol IV .Q0M [facility] Rx#:[id number] Propofol 1,000 mg In 100.00 Empty Bag 1 bag @ Titrate IV .Q0M [facility] Rx#: [id number] Oral 180 Tube Feeding 810 594 54 Other 330 200 100 Output: Drainage 250 260 Right Lower Medial Calf 250 260 Urine 635 640 100 Other: Voiding Method Indwelling Catheter Indwelling Catheter # Voids 2 ABP, PAP, CO, CI - Last Documented Arterial Blood Pressure 147/81 Pulmonary Artery Pressure 33/21 Cardiac Output 5 Cardiac Index 2.4 - Exam No acute distress, the patient is currently sedated and has a endotracheal tube and NG tube in place. HEENT examination is grossly unremarkable. Mucous membranes are moist. Neck supple. Full range of motion. No adenopathy. Cardiovascular examination reveals a regular rhythm rate. Heart rate about 125 or 1 30 bpm. She is in atrial fibrillation. Lungs reveal some diffuse rhonchi. Breath sounds are diminished. No wheezes. Abdomen soft bowel sounds are heard. Extremities are intact. No cyanosis clubbing or edema. Skin without rash. Neurologic examination cannot be performed. - Labs CBC & Chem 7: 06/13/17 04:00 06/13/17 04:00 Labs: Abnormal Lab Results - Last 24 Hours (Table) 06/12/17 06/12/17 06/12/17 Range/Units 09:57 11:08 12:31 RBC (3.80-5.40) m/uL Hgb (11.4-16.0) gm/dL Hct (34.0-46.0) % MCHC (31.0-37.0) g/dL RDW (11.5-15.5) % Lymphocytes # (1.0-4.8) k/uL ABG pH (7.35-7.45) ABG pO2 (83-108) mmHg ABG HCO3 (21-25) mmol/L ABG Total CO2 (19-24) mmol/L Sodium (137-145) mmol/L Chloride (98-107) mmol/L BUN (7-17) mg/dL Glucose (74-99) mg/dL POC Glucose (mg/dL) 132 H 145 H 149 H (75-99) mg/dL Magnesium (1.6-2.3) mg/dL Total Protein (6.3-8.2) g/dL Albumin (3.5-5.0) g/dL 06/12/17 06/12/17 06/12/17 Range/Units 13:28 14:16 15:15 RBC (3.80-5.40) m/uL Hgb (11.4-16.0) gm/dL Hct (34.0-46.0) % MCHC (31.0-37.0) g/dL RDW (11.5-15.5) % Lymphocytes # (1.0-4.8) k/uL ABG pH (7.35-7.45) ABG pO2 (83-108) mmHg ABG HCO3 (21-25) mmol/L ABG Total CO2 (19-24) mmol/L Sodium (137-145) mmol/L Chloride (98-107) mmol/L BUN (7-17) mg/dL Glucose (74-99) mg/dL POC Glucose (mg/dL) 137 H 133 H 128 H (75-99) mg/dL Magnesium (1.6-2.3) mg/dL Total Protein (6.3-8.2) g/dL Albumin (3.5-5.0) g/dL 06/12/17 06/12/17 06/12/17 Range/Units 16:20 17:06 17:58 RBC (3.80-5.40) m/uL Hgb (11.4-16.0) gm/dL Hct (34.0-46.0) % MCHC (31.0-37.0) g/dL RDW (11.5-15.5) % Lymphocytes # (1.0-4.8) k/uL ABG pH (7.35-7.45) ABG pO2 (83-108) mmHg ABG HCO3 (21-25) mmol/L ABG Total CO2 (19-24) mmol/L Sodium (137-145) mmol/L Chloride (98-107) mmol/L BUN (7-17) mg/dL Glucose (74-99) mg/dL POC Glucose (mg/dL) 144 H 135 H 126 H (75-99) mg/dL Magnesium (1.6-2.3) mg/dL Total Protein (6.3-8.2) g/dL Albumin (3.5-5.0) g/dL 06/12/17 06/12/17 06/12/17 Range/Units 18:58 19:59 20:44 RBC (3.80-5.40) m/uL Hgb (11.4-16.0) gm/dL Hct (34.0-46.0) % MCHC (31.0-37.0) g/dL RDW (11.5-15.5) % Lymphocytes # (1.0-4.8) k/uL ABG pH (7.35-7.45) ABG pO2 (83-108) mmHg ABG HCO3 (21-25) mmol/L ABG Total CO2 (19-24) mmol/L Sodium (137-145) mmol/L Chloride (98-107) mmol/L BUN (7-17) mg/dL Glucose (74-99) mg/dL POC Glucose (mg/dL) 126 H 112 H 107 H (75-99) mg/dL Magnesium (1.6-2.3) mg/dL Total Protein (6.3-8.2) g/dL Albumin (3.5-5.0) g/dL 06/12/17 06/12/17 06/12/17 Range/Units 22:11 23:08 23:30 RBC (3.80-5.40) m/uL Hgb (11.4-16.0) gm/dL Hct (34.0-46.0) % MCHC (31.0-37.0) g/dL RDW (11.5-15.5) % Lymphocytes # (1.0-4.8) k/uL ABG pH (7.35-7.45) ABG pO2 (83-108) mmHg ABG HCO3 (21-25) mmol/L ABG Total CO2 (19-24) mmol/L Sodium (137-145) mmol/L Chloride (98-107) mmol/L BUN (7-17) mg/dL Glucose (74-99) mg/dL POC Glucose (mg/dL) 112 H 148 H 144 H (75-99) mg/dL Magnesium (1.6-2.3) mg/dL Total Protein (6.3-8.2) g/dL Albumin (3.5-5.0) g/dL 06/12/17 06/13/17 06/13/17 Range/Units 23:53 00:59 02:05 RBC (3.80-5.40) m/uL Hgb (11.4-16.0) gm/dL Hct (34.0-46.0) % MCHC (31.0-37.0) g/dL RDW (11.5-15.5) % Lymphocytes # (1.0-4.8) k/uL ABG pH (7.35-7.45) ABG pO2 (83-108) mmHg ABG HCO3 (21-25) mmol/L ABG Total CO2 (19-24) mmol/L Sodium (137-145) mmol/L Chloride (98-107) mmol/L BUN (7-17) mg/dL Glucose (74-99) mg/dL POC Glucose (mg/dL) 133 H 118 H 123 H (75-99) mg/dL Magnesium (1.6-2.3) mg/dL Total Protein (6.3-8.2) g/dL Albumin (3.5-5.0) g/dL 06/13/17 06/13/17 06/13/17 Range/Units 03:02 04:00 04:00 RBC 2.97 L (3.80-5.40) m/uL Hgb 8.3 L (11.4-16.0) gm/dL Hct 27.2 L (34.0-46.0) % MCHC 30.4 L (31.0-37.0) g/dL RDW 16.2 H (11.5-15.5) % Lymphocytes # 0.9 L (1.0-4.8) k/uL ABG pH (7.35-7.45) ABG pO2 (83-108) mmHg ABG HCO3 (21-25) mmol/L ABG Total CO2 (19-24) mmol/L Sodium 147 H (137-145) mmol/L Chloride 111 H (98-107) mmol/L BUN 55 H (7-17) mg/dL Glucose 116 H (74-99) mg/dL POC Glucose (mg/dL) 141 H (75-99) mg/dL Magnesium 2.8 H (1.6-2.3) mg/dL Total Protein 5.6 L (6.3-8.2) g/dL Albumin 2.6 L (3.5-5.0) g/dL 06/13/17 06/13/17 06/13/17 Range/Units 04:03 04:12 04:58 RBC (3.80-5.40) m/uL Hgb (11.4-16.0) gm/dL Hct (34.0-46.0) % MCHC (31.0-37.0) g/dL RDW (11.5-15.5) % Lymphocytes # (1.0-4.8) k/uL ABG pH 7.49 H (7.35-7.45) ABG pO2 78 L (83-108) mmHg ABG HCO3 29 H (21-25) mmol/L ABG Total CO2 30 H (19-24) mmol/L Sodium (137-145) mmol/L Chloride (98-107) mmol/L BUN (7-17) mg/dL Glucose (74-99) mg/dL POC Glucose (mg/dL) 123 H 121 H (75-99) mg/dL Magnesium (1.6-2.3) mg/dL Total Protein (6.3-8.2) g/dL Albumin (3.5-5.0) g/dL 06/13/17 06/13/17 06/13/17 Range/Units 05:55 07:08 08:01 RBC (3.80-5.40) m/uL Hgb (11.4-16.0) gm/dL Hct (34.0-46.0) % MCHC (31.0-37.0) g/dL RDW (11.5-15.5) % Lymphocytes # (1.0-4.8) k/uL ABG pH (7.35-7.45) ABG pO2 (83-108) mmHg ABG HCO3 (21-25) mmol/L ABG Total CO2 (19-24) mmol/L Sodium (137-145) mmol/L Chloride (98-107) mmol/L BUN (7-17) mg/dL Glucose (74-99) mg/dL POC Glucose (mg/dL) 138 H 121 H 110 H (75-99) mg/dL Magnesium (1.6-2.3) mg/dL Total Protein (6.3-8.2) g/dL Albumin (3.5-5.0) g/dL 06/13/17 Range/Units 09:09 RBC (3.80-5.40) m/uL Hgb (11.4-16.0) gm/dL Hct (34.0-46.0) % MCHC (31.0-37.0) g/dL RDW (11.5-15.5) % Lymphocytes # (1.0-4.8) k/uL ABG pH (7.35-7.45) ABG pO2 (83-108) mmHg ABG HCO3 (21-25) mmol/L ABG Total CO2 (19-24) mmol/L Sodium (137-145) mmol/L Chloride (98-107) mmol/L BUN (7-17) mg/dL Glucose (74-99) mg/dL POC Glucose (mg/dL) 150 H (75-99) mg/dL Magnesium (1.6-2.3) mg/dL Total Protein (6.3-8.2) g/dL Albumin (3.5-5.0) g/dL Microbiology - Last 24 Hours (Table) 06/12/17 17:25 Gram Stain - Preliminary Sputum Sputum Culture - Preliminary 06/12/17 14:19 Urine Culture - Preliminary Urine,Catheterized Assessment and Plan Assessment: Assessment Hypoxemic respiratory failure status post acute cardiopulmonary arrest requiring intubation and mechanical ventilation and successful resuscitation. Ischemia induced ventricular fibrillation Severe multivessel coronary disease, status post four-vessel bypass grafting, postoperative day #9 Mild/moderate COPD Sleep apnea syndrome, severe Obesity Coronary disease, with previous stenting Recent hospitalization at [facility] for right lower lobe pneumonia History of right breast cancer with lumpectomy and lymph node dissection GERD Diabetes mellitus Anemia Enterobacter cloacae left lower lobe pneumonia Plan: Plan dated 06/11/2017 The patient will have a weaning trial. The patient has a significant respiratory and metabolic alkalosis which will be a hindrance towards weaning. We'll change tidal volume from 500 down to 400. We'll increase the rate from 18 to 28. We'll try to deal with alkalosis. Additional recommendations and suggestions are forthcoming. Prognosis is guarded. If the patient is stable, we'll do a spontaneous breathing trial. Meds labs x-rays are all reviewed. Chest x-ray shows either consolidation or left-sided pleural effusion. Critical care time is 36 minutes Plan dated 06/12/2017 The patient had a very brief weaning trial yesterday. Unfortunately, atrial fibrillation with rapid ventricular response and a high respiratory rate up into the 40s prevented a longer weaning trial. I suspect that the patient will need a tracheostomy. I think is being planned for sometime this week. She really hasn't done very well. Off of all sedation, her mental status is poor. Her chest x-rays recently stable with a consolidation small effusion in the left base. Her medications labs and x-rays are all reviewed. She continues to be a full code. Prognosis is guarded. Additional recommendations and suggestions are forthcoming. Plan dated 06/13/2017 The patient is going to have a daily interuption of sedation and a weaning trial. I do not suspect that she will do well. Nonetheless, she is scheduled for a tracheostomy and possible PEG tube placement tomorrow. [facility] if she cannot be weaned. Currently, she is on propofol at 30 mics per kilogram per minute insulin drip is on hold lactated Ringer's IV at 20 mL an hour and vital high protein tube feeds. Blood gases are reasonable. Additional recommendations and suggestions are forthcoming. Critical care time is 34 minutes. Time with Patient: Greater than 30
[2017-06-13 10:04] LABS: Glucose,Whole Blood 152 mg/dL (75-99)
--- NOTE | 2017-06-13 11:45 | PN ---
PROGRESS NOTE Triny is a 66-year-old lady who is status post CABG, postop day #11. She is still intubated on vent. Continues to have respiratory failure, remains with intermittent A. fib. On exam, patient is comfortable at rest. Heart rate is 86 with blood pressure is 123/60, respiratory rate is 18. Chest exam reveals diminished air entry at the bases. Heart exam reveals first and second heart sounds. Irregular rhythm. Exam of extremities did not reveal any edema. Peripheral pulses are palpable. LABS: Show that the potassium is 4.5, creatinine is 0.8. AST and ALT are within normal limits. ASSESSMENT: 1. Coronary artery disease, status post coronary artery bypass grafting. 2. Respiratory failure. 3. Postoperative atrial fibrillation: Patient is on amiodarone, Lipitor, Plavix, Lanoxin. Will continue with the current medications. MMODL / IJN: [id number] /
[2017-06-13] MEDS: INSULIN REGULAR 100 UNIT in SODIUM CHLORIDE 0.9% 100 ML IV SCH ×2 (12:09→20:48)
[2017-06-13 12:10] LABS: Glucose,Whole Blood 144 mg/dL (75-99)
[2017-06-13 13:20] LABS: Glucose,Whole Blood 143 mg/dL (75-99)
[2017-06-13 14:24] LABS: Glucose,Whole Blood 141 mg/dL (75-99)
--- NOTE | 2017-06-13 15:27 | PN ---
PROGRESS NOTE DATE OF SERVICE: 06/13/2017 This is a 66-year-old woman who was admitted after CAD, CABG, is on mechanical ventilation at this time. Dr. Ott and Cardiothoracic Surgery and Cardiology are following the patient closely. EEG has been done by the Neurology recommendations. The patient is still on mechanical ventilation. Pulmonary is planning daily interruptions of sedation and the possible of tracheostomy and PEG tube placement. PHYSICAL EXAM: Pulse is 114, blood pressure 111/60, respiration 28, temperature 99.3, pulse ox 100% on 50% mechanical ventilation. HEENT: Conjunctivae normal, oral mucosa moist. Neck is no jugular venous distention. No lymph node enlargement. CARDIOVASCULAR SYSTEM: S1, S2, muffled. RESPIRATORY: Breath sounds diminished at the bases, a few scattered rhonchi, no crackles. ABDOMEN: Soft, nontender. LEGS: No edema, no swelling. NERVOUS SYSTEM: Diffusely weak. LABS: Accu-Cheks 143, otherwise WBC 8.3, hemoglobin is 8.3. Labs are noted. ASSESSMENT: 1. Status post coronary artery disease, coronary artery bypass grafting. 2. Acute hypoxic respiratory failure on mechanical ventilation. 3. Acute coronary artery disease followed by cardiac arrest with ventricular fibrillation on the floor. 4. Morbid obesity. 5. History of diabetes mellitus type 2. 6. Gastroesophageal reflux disease. 7. Hyperlipidemia. 8. History of sleep apnea. 9. History of right mastectomy. 10.Right axillary lesion history. 11.Bilateral nephrolithiasis. 12.Left leg skin nodule history. 13.Hypertension. 14.Paroxysmal atrial fibrillation history. 15.Pneumonia with interval Enterobacter cloacae in the cultures. RECOMMENDATION: Recommend to continue with current management and symptomatic treatment, closely follow with Pulmonary. Monitor lytes closely, continue with bronchodilators for further weaning and sedation interruption. Possible tracheostomy and PEG tube. Guarded prognosis. Further recommendations to follow. MMODL / IJN: [id number] /
[2017-06-13 15:40] LABS: Glucose,Whole Blood 122 mg/dL (75-99)
[2017-06-13 17:03] LABS: Glucose,Whole Blood 111 mg/dL (75-99)
[2017-06-13 18:09] LABS: Glucose,Whole Blood 134 mg/dL (75-99)
[2017-06-13 18:52] LABS: Glucose,Whole Blood 157 mg/dL (75-99)
[2017-06-13 19:58] LABS: Glucose,Whole Blood 125 mg/dL (75-99)
--- NOTE | 2017-06-13 20:15 | P.GSCN ---
History of Present Illness Consult date: 06/13/17 Reason for Consult: Malnutrition History of present illness: We were consulted to see this patient for PEG tube placement. Patient has been on the ventilator now for approximately 10-11 days. She underwent emergent CABG. She has been unable to wean. She is currently scheduled for a tracheostomy tomorrow morning. For the administration of parenteral feedings PEG tube was requested. Review of Systems ROS unobtainable: due to endotracheal tube, due to mental status Past Medical History Past Medical History: Asthma, Coronary Artery Disease (CAD), Cancer, Chest Pain / Angina, COPD, Diabetes Mellitus, GERD/Reflux, Hyperlipidemia, Hypertension, Myocardial Infarction ([place]), Pneumonia, Sleep Apnea/CPAP/BIPAP Additional Past Medical History / Comment(s): Pt states she had pneumonia and was sent home with home O2 and she felt she had recovered, she then states she started having bilateral lower leg edema/redness with L leg worse, she states she sleeps in a recliner because she coughs too much if she doesn't. She states she started having jaw, chest and L sided back (scapular) pain on and off the past week. Other hx: IDDM type II, [place] in 1998 and 2010, [place] with CPAP but was not able to use since pneumonia so she states equipment company took machine away, R breast cancer with lumpectomy/lymph node removals and had radiation, anemia, unsteady gait. Last Myocardial Infarction Date:: 2010 History of Any Multi-Drug Resistant Organisms: None Reported Past Surgical History: Breast Surgery, Heart Catheterization, Heart Catheterization With Stent, Hysterectomy, Tonsillectomy Additional Past Surgical History / Comment(s): 07/2010 PCI with stent to RCA, R breast lumpectomy/lymph node removals, colonoscopy with benign polypectomies. Past Anesthesia/Blood Transfusion Reactions: No Reported Reaction Additional Past Anesthesia/Blood Transfusion Reaction / Comm: Pt states she received blood with hysterectomy without reaction. Date of Last Stent Placement:: 2010 Smoking Status: Former smoker Past Alcohol Use History: None Reported Past Drug Use History: None Reported - Past Family History Mother Family Medical History: Cancer, Hyperlipidemia, Hypertension Additional Family Medical History / Comment(s): Mother had breast cancer 50 yrs ago. She is living. Father Family Medical History: Diabetes Mellitus Additional Family Medical History / Comment(s): Father is . Medications and Allergies Home Medications Medication Instructions Recorded Confirmed Type ALPRAZolam [Xanax] 0.25 mg PO Q6HR PRN 05/28/17 05/28/17 History Albuterol Sulfate [Proair Hfa] 2 puff INHALATION RT-Q4H PRN 05/28/17 05/28/17 History Alendronate Sodium [Fosamax] 70 mg PO CARPENTER 05/28/17 05/28/17 History Anastrozole [Arimidex] 1 mg PO DAILY 05/28/17 05/28/17 History Aspirin [Adult Low Dose Aspirin EC] 81 mg PO DAILY 05/28/17 05/28/17 History Atorvastatin [Lipitor] 20 mg PO HS 05/28/17 05/28/17 History Atorvastatin [Lipitor] 40 mg PO HS 05/28/17 05/28/17 History Budesonide [Pulmicort] 0.5 mg INHALATION RT-BID 05/28/17 05/28/17 History Clopidogrel [Plavix] 75 mg PO DAILY 05/28/17 05/28/17 History Furosemide [Lasix] 40 mg PO DAILY 05/28/17 05/28/17 History Insulin Aspart [Novolog Flexpen] 6 unit SQ W/LUNCH 05/28/17 05/28/17 History Insulin Aspart [Novolog Flexpen] 8 unit SQ BID 05/28/17 05/28/17 History Insulin Glargine,Hum.rec.anlog 60 unit SQ DAILY 05/28/17 05/28/17 History [Lantus Solostar] Ipratropium-Albuterol Nebulize 3 ml INHALATION RT-TID 05/28/17 05/28/17 History [Duoneb 0.5 mg-3 mg/3 ml Soln] Isosorbide Mononitrate ER [Imdur] 60 mg PO DAILY 05/28/17 05/28/17 History Lisinopril [Zestril] 20 mg PO DAILY 05/28/17 05/28/17 History Metoprolol Tartrate [Lopressor] 50 mg PO DAILY 05/28/17 05/28/17 History Montelukast [Singulair] 10 mg PO HS 05/28/17 05/28/17 History Omeprazole 20 mg PO BID 05/28/17 05/28/17 History Ramipril 10 mg PO BID 05/28/17 05/28/17 History amLODIPine BESYLATE [Norvasc] 5 mg PO DAILY 05/28/17 05/28/17 History cloNIDine HCL [Catapres] 0.1 mg PO DAILY 05/28/17 05/28/17 History metFORMIN HCL 1,000 mg PO BID 05/28/17 05/28/17 History Allergies Allergy/AdvReac Type Severity Reaction Status Date / Time Penicillins Allergy Severe Rash/Hives Verified 05/28/17 14:15 Surgical - Exam Vital Signs Temp Pulse Resp BP Pulse Ox 98.5 F 92 18 135/68 97 05/28/17 14:00 05/28/17 14:00 05/28/17 14:00 05/28/17 14:00 05/28/17 14:00 Physical exam: General: Well-developed, well-nourished, somewhat obese HEENT: Normocephalic, sclerae nonicteric Abdomen: Nontender, nondistended, no scars visible Extremities: Mild edema Neuro: On ventilator Results - Labs 06/13/17 04:00 06/13/17 04:00 Abnormal Lab Results - Last 24 Hours (Table) 06/12/17 06/12/17 06/12/17 Range/Units 20:44 22:11 23:08 RBC (3.80-5.40) m/uL Hgb (11.4-16.0) gm/dL Hct (34.0-46.0) % MCHC (31.0-37.0) g/dL RDW (11.5-15.5) % Lymphocytes # (1.0-4.8) k/uL ABG pH (7.35-7.45) ABG pO2 (83-108) mmHg ABG HCO3 (21-25) mmol/L ABG Total CO2 (19-24) mmol/L Sodium (137-145) mmol/L Chloride (98-107) mmol/L BUN (7-17) mg/dL Glucose (74-99) mg/dL POC Glucose (mg/dL) 107 H 112 H 148 H (75-99) mg/dL Magnesium (1.6-2.3) mg/dL Total Protein (6.3-8.2) g/dL Albumin (3.5-5.0) g/dL 06/12/17 06/12/17 06/13/17 Range/Units 23:30 23:53 00:59 RBC (3.80-5.40) m/uL Hgb (11.4-16.0) gm/dL Hct (34.0-46.0) % MCHC (31.0-37.0) g/dL RDW (11.5-15.5) % Lymphocytes # (1.0-4.8) k/uL ABG pH (7.35-7.45) ABG pO2 (83-108) mmHg ABG HCO3 (21-25) mmol/L ABG Total CO2 (19-24) mmol/L Sodium (137-145) mmol/L Chloride (98-107) mmol/L BUN (7-17) mg/dL Glucose (74-99) mg/dL POC Glucose (mg/dL) 144 H 133 H 118 H (75-99) mg/dL Magnesium (1.6-2.3) mg/dL Total Protein (6.3-8.2) g/dL Albumin (3.5-5.0) g/dL 06/13/17 06/13/17 06/13/17 Range/Units 02:05 03:02 04:00 RBC 2.97 L (3.80-5.40) m/uL Hgb 8.3 L (11.4-16.0) gm/dL Hct 27.2 L (34.0-46.0) % MCHC 30.4 L (31.0-37.0) g/dL RDW 16.2 H (11.5-15.5) % Lymphocytes # 0.9 L (1.0-4.8) k/uL ABG pH (7.35-7.45) ABG pO2 (83-108) mmHg ABG HCO3 (21-25) mmol/L ABG Total CO2 (19-24) mmol/L Sodium (137-145) mmol/L Chloride (98-107) mmol/L BUN (7-17) mg/dL Glucose (74-99) mg/dL POC Glucose (mg/dL) 123 H 141 H (75-99) mg/dL Magnesium (1.6-2.3) mg/dL Total Protein (6.3-8.2) g/dL Albumin (3.5-5.0) g/dL 06/13/17 06/13/17 06/13/17 Range/Units 04:00 04:03 04:12 RBC (3.80-5.40) m/uL Hgb (11.4-16.0) gm/dL Hct (34.0-46.0) % MCHC (31.0-37.0) g/dL RDW (11.5-15.5) % Lymphocytes # (1.0-4.8) k/uL ABG pH 7.49 H (7.35-7.45) ABG pO2 78 L (83-108) mmHg ABG HCO3 29 H (21-25) mmol/L ABG Total CO2 30 H (19-24) mmol/L Sodium 147 H (137-145) mmol/L Chloride 111 H (98-107) mmol/L BUN 55 H (7-17) mg/dL Glucose 116 H (74-99) mg/dL POC Glucose (mg/dL) 123 H (75-99) mg/dL Magnesium 2.8 H (1.6-2.3) mg/dL Total Protein 5.6 L (6.3-8.2) g/dL Albumin 2.6 L (3.5-5.0) g/dL 06/13/17 06/13/17 06/13/17 Range/Units 04:58 05:55 07:08 RBC (3.80-5.40) m/uL Hgb (11.4-16.0) gm/dL Hct (34.0-46.0) % MCHC (31.0-37.0) g/dL RDW (11.5-15.5) % Lymphocytes # (1.0-4.8) k/uL ABG pH (7.35-7.45) ABG pO2 (83-108) mmHg ABG HCO3 (21-25) mmol/L ABG Total CO2 (19-24) mmol/L Sodium (137-145) mmol/L Chloride (98-107) mmol/L BUN (7-17) mg/dL Glucose (74-99) mg/dL POC Glucose (mg/dL) 121 H 138 H 121 H (75-99) mg/dL Magnesium (1.6-2.3) mg/dL Total Protein (6.3-8.2) g/dL Albumin (3.5-5.0) g/dL 06/13/17 06/13/17 06/13/17 Range/Units 08:01 09:09 10:03 RBC (3.80-5.40) m/uL Hgb (11.4-16.0) gm/dL Hct (34.0-46.0) % MCHC (31.0-37.0) g/dL RDW (11.5-15.5) % Lymphocytes # (1.0-4.8) k/uL ABG pH (7.35-7.45) ABG pO2 (83-108) mmHg ABG HCO3 (21-25) mmol/L ABG Total CO2 (19-24) mmol/L Sodium (137-145) mmol/L Chloride (98-107) mmol/L BUN (7-17) mg/dL Glucose (74-99) mg/dL POC Glucose (mg/dL) 110 H 150 H 152 H (75-99) mg/dL Magnesium (1.6-2.3) mg/dL Total Protein (6.3-8.2) g/dL Albumin (3.5-5.0) g/dL 06/13/17 06/13/17 06/13/17 Range/Units 12:07 13:19 14:22 RBC (3.80-5.40) m/uL Hgb (11.4-16.0) gm/dL Hct (34.0-46.0) % MCHC (31.0-37.0) g/dL RDW (11.5-15.5) % Lymphocytes # (1.0-4.8) k/uL ABG pH (7.35-7.45) ABG pO2 (83-108) mmHg ABG HCO3 (21-25) mmol/L ABG Total CO2 (19-24) mmol/L Sodium (137-145) mmol/L Chloride (98-107) mmol/L BUN (7-17) mg/dL Glucose (74-99) mg/dL POC Glucose (mg/dL) 144 H 143 H 141 H (75-99) mg/dL Magnesium (1.6-2.3) mg/dL Total Protein (6.3-8.2) g/dL Albumin (3.5-5.0) g/dL 06/13/17 06/13/17 06/13/17 Range/Units 15:38 17:02 18:08 RBC (3.80-5.40) m/uL Hgb (11.4-16.0) gm/dL Hct (34.0-46.0) % MCHC (31.0-37.0) g/dL RDW (11.5-15.5) % Lymphocytes # (1.0-4.8) k/uL ABG pH (7.35-7.45) ABG pO2 (83-108) mmHg ABG HCO3 (21-25) mmol/L ABG Total CO2 (19-24) mmol/L Sodium (137-145) mmol/L Chloride (98-107) mmol/L BUN (7-17) mg/dL Glucose (74-99) mg/dL POC Glucose (mg/dL) 122 H 111 H 134 H (75-99) mg/dL Magnesium (1.6-2.3) mg/dL Total Protein (6.3-8.2) g/dL Albumin (3.5-5.0) g/dL 06/13/17 06/13/17 Range/Units 18:50 19:56 RBC (3.80-5.40) m/uL Hgb (11.4-16.0) gm/dL Hct (34.0-46.0) % MCHC (31.0-37.0) g/dL RDW (11.5-15.5) % Lymphocytes # (1.0-4.8) k/uL ABG pH (7.35-7.45) ABG pO2 (83-108) mmHg ABG HCO3 (21-25) mmol/L ABG Total CO2 (19-24) mmol/L Sodium (137-145) mmol/L Chloride (98-107) mmol/L BUN (7-17) mg/dL Glucose (74-99) mg/dL POC Glucose (mg/dL) 157 H 125 H (75-99) mg/dL Magnesium (1.6-2.3) mg/dL Total Protein (6.3-8.2) g/dL Albumin (3.5-5.0) g/dL Microbiology - Last 24 Hours (Table) 06/12/17 14:53 Blood Culture - Preliminary Blood No Growth after 24 hours 06/12/17 17:25 Gram Stain - Preliminary Sputum Sputum Culture - Preliminary 06/12/17 14:19 Urine Culture - Preliminary Urine,Catheterized Diabetes panel 06/13/17 Range/Units 04:00 Sodium 147 H (137-145) mmol/L Potassium 4.5 (3.5-5.1) mmol/L Chloride 111 H (98-107) mmol/L Carbon Dioxide 29 (22-30) mmol/L BUN 55 H (7-17) mg/dL Creatinine 0.80 (0.52-1.04) mg/dL Glucose 116 H (74-99) mg/dL Calcium 8.9 (8.4-10.2) mg/dL AST 22 (14-36) U/L ALT 32 (9-52) U/L Alkaline Phosphatase 92 (38-126) U/L Total Protein 5.6 L (6.3-8.2) g/dL Albumin 2.6 L (3.5-5.0) g/dL Calcium panel 06/13/17 Range/Units 04:00 Calcium 8.9 (8.4-10.2) mg/dL Albumin 2.6 L (3.5-5.0) g/dL Pituitary panel 06/13/17 Range/Units 04:00 Sodium 147 H (137-145) mmol/L Potassium 4.5 (3.5-5.1) mmol/L Chloride 111 H (98-107) mmol/L Carbon Dioxide 29 (22-30) mmol/L BUN 55 H (7-17) mg/dL Creatinine 0.80 (0.52-1.04) mg/dL Glucose 116 H (74-99) mg/dL Calcium 8.9 (8.4-10.2) mg/dL Adrenal panel 06/13/17 Range/Units 04:00 Sodium 147 H (137-145) mmol/L Potassium 4.5 (3.5-5.1) mmol/L Chloride 111 H (98-107) mmol/L Carbon Dioxide 29 (22-30) mmol/L BUN 55 H (7-17) mg/dL Creatinine 0.80 (0.52-1.04) mg/dL Glucose 116 H (74-99) mg/dL Calcium 8.9 (8.4-10.2) mg/dL Total Bilirubin 0.7 (0.2-1.3) mg/dL AST 22 (14-36) U/L ALT 32 (9-52) U/L Alkaline Phosphatase 92 (38-126) U/L Total Protein 5.6 L (6.3-8.2) g/dL Albumin 2.6 L (3.5-5.0) g/dL Assessment and Plan (1) Malnutrition Narrative/Plan: Will proceed with PEG tube placement tomorrow. We'll try to discuss the surgical procedure with the family preoperatively. Current Visit: Yes Status: Acute Code(s): E46 - UNSPECIFIED PROTEIN-CALORIE MALNUTRITION SNOMED Code(s): 25518375
[2017-06-13] MEDS: SENNOSIDES-DOCUSATE SODIUM 1 EACH TAB PO SCH (20:18)
[2017-06-13] MEDS: MONTELUKAST 10 MG TAB PO SCH (20:18)
[2017-06-13 21:01] LABS: Glucose,Whole Blood 127 mg/dL (75-99)
[2017-06-13 22:02] LABS: Glucose,Whole Blood 107 mg/dL (75-99)
[2017-06-13 23:11] LABS: Glucose,Whole Blood 135 mg/dL (75-99)
[2017-06-13] MEDS: ACETAMINOPHEN TAB 500 MG TAB PO PRN (23:16)
[2017-06-13 23:48] LABS: Glucose,Whole Blood 150 mg/dL (75-99)
[2017-06-14 00:56] LABS: Glucose,Whole Blood 114 mg/dL (75-99)
[2017-06-14] MEDS: HEPARIN SODIUM,PORCINE 5,000 UNIT/ML 1 ML VIAL SQ SCH ×4 (01:08→23:53)
[2017-06-14 02:02] LABS: Glucose,Whole Blood 105 mg/dL (75-99)
[2017-06-14 02:37] LABS: Glucose,Whole Blood 130 mg/dL (75-99)
[2017-06-14] MEDS: LACTATED RINGERS 1,000 ML IV SCH ×2 (02:51→23:47)
[2017-06-14] MEDS: IPRATROPIUM-ALBUTEROL 3 ML NEB INHALATION SCH ×5 (03:01→19:58)
[2017-06-14] MEDS: PROPOFOL 1,000 MG in EMPTY BAG 1 BAG IV SCH ×3 (03:13→22:04)
[2017-06-14 03:25] LABS: Glucose,Whole Blood 121 mg/dL (75-99)
[2017-06-14 04:02] LABS: Glucose,Whole Blood 117 mg/dL (75-99)
[2017-06-14 04:14] LABS: ABG Base Excess 4.3 mmol/L; ABG HCO3 28 mmol/L (21-25); ABG Oxygen Saturation 98.1 % (94-97); ABG PCO2 36 mmHg (35-45); ABG PH 7.49 (7.35-7.45); ABG PO2 93 mmHg (83-108); ABG TCO2 29 mmol/L (19-24)
[2017-06-14 04:54] LABS: Glucose,Whole Blood 110 mg/dL (75-99)
[2017-06-14 05:32] LABS: Anisocytosis Slight; Basophils % (A) 0 %; Eosinophils # (A) 0.1 k/uL (0-0.7); Eosinophils % (A) 1 %; HCT 26.1 % (34.0-46.0); HGB 7.8 gm/dL (11.4-16.0); Hypochromasia Marked; Lymphocytes # (A) 0.8 k/uL (1.0-4.8); Lymphocytes % (A) 8 %; MCH 27.7 pg (25.0-35.0); MCV 92.6 fL (80.0-100.0); Mean Platelet Volume 9.9; Monocytes # (A) 0.3 k/uL (0-1.0); Monocytes % (A) 3 %; Neutrophils # (A) 8.1 k/uL (1.3-7.7); Neutrophils % (A) 86 %; Platelet Count 173 k/uL (150-450); RBC 2.81 m/uL (3.80-5.40); RDW 16.8 % (11.5-15.5); WBC 9.4 k/uL (3.8-10.6)
[2017-06-14 05:38] LABS: INR 1.2 (<1.2); Prothrombin Time 11.8 sec (9.0-12.0)
[2017-06-14 05:52] LABS: Albumin 2.4 g/dL (3.5-5.0); Calcium 9.1 mg/dL (8.4-10.2); Magnesium 2.8 mg/dL (1.6-2.3); Phosphorus 4.2 mg/dL (2.5-4.5); Potassium 4.3 mmol/L (3.5-5.1); Total Bilirubin 0.9 mg/dL (0.2-1.3); Total Protein 5.5 g/dL (6.3-8.2)
[2017-06-14 06:22] LABS: Glucose,Whole Blood 123 mg/dL (75-99)
[2017-06-14 07:06] LABS: Glucose,Whole Blood 103 mg/dL (75-99)
[2017-06-14] MEDS: BUDESONIDE 1 MG/2 ML NEBU INHALATION SCH ×2 (07:28→19:58)
[2017-06-14 08:10] LABS: Glucose,Whole Blood 146 mg/dL (75-99)
--- NOTE | 2017-06-14 08:15 | XR ---
EXAMINATION TYPE: XR chest 1V portable DATE OF EXAM: 06/14/2017 COMPARISON: 06/13/2017 HISTORY: Post cardiac surgery. Ventilatory dependent respiratory failure. TECHNIQUE: Single frontal view of the chest is obtained. FINDINGS: Heart is enlarged with small left-sided pleural effusion, stable from the prior and left b asilar airspace disease. Postoperative changes of the chest are again noted. Remainder the lungs are clear. Enteric and endotracheal tubes are unchanged. Osseous structures are intact. IMPRESSION: Stable small left pleural effusion and left basilar airspace disease, likely atelectasis with unchanged line and tube.
[2017-06-14] MEDS ORDERED: MIDAZOLAM 2 MG/2 ML VIAL ONE (08:58)
[2017-06-14] MEDS ORDERED: DIGOXIN 100 MCG/ML 1 ML AMP ONE (08:58)
[2017-06-14] MEDS ORDERED: fentaNYL (PF) 50 MCG/ML 2 ML AMP ONE (08:58)
[2017-06-14] MEDS ORDERED: ROCURONIUM BROMIDE 10 MG/ML 10 ML VIAL IV ONE (08:58)
[2017-06-14] MEDS: DIGOXIN 125 MCG TAB OG-TUBE SCH (09:25)
[2017-06-14] MEDS ORDERED: IV FLUID CONTINUATION 900 ML IV ONE ×2 (09:28)
[2017-06-14] MEDS ORDERED: SODIUM CHLORIDE 0.9% 100 ML with ceFAZolin 3,000 MG IV ONE ×2 (09:29)
--- NOTE | 2017-06-14 09:48 | P.PN ---
Subjective Progress Note Date: 06/14/17 Principal diagnosis: Diffuse severe calcific coronary artery disease. Non-ST elevation myocardial infarction. Preserved left ventricular function with preoperative ejection fraction of 50-55%. Mild mitral valve regurgitation. Status post ventricular fibrillation arrest. Previous medical history of hypertension, hyperlipidemia, insulin dependent diabetes mellitus with current hemoglobin A1c 9.4%, previous myocardial infarction with stent placement to the RCA in 2010, obesity, obstructive sleep apnea, recent pneumonia in March 2017, previous tobacco dependence with preoperative FEV1 77% of predicted and preoperative arterial blood gas on room air pH 7.46, pCO2 40, pO2 68, HCO3 28, right breast cancer with lumpectomy and radiation, and family history of premature coronary artery disease. POD #12 urgent coronary artery bypass grafting 4 using the left internal mammary artery to the left anterior descending artery, reverse saphenous vein graft from the aorta to the distal posterior descending artery, reverse saphenous vein graft from the aorta to the ramus intermedius artery, reverse saphenous vein graft from the aorta to the second diagonal artery. Endoscopic harvesting of the right greater saphenous vein. Intraoperative transesophageal echocardiogram and epi-aortic scanning. Intraoperative graft flow measurements using the Sitemasherstim system. Status post preoperative ventricular fibrillation arrest with successful resuscitation. Postoperative prolonged mechanical ventilation secondary to hemodynamic instability, an unexpected but potential outcome of surgery. Postoperative atrial fibrillation, an unexpected but potential outcome of surgery. POD #8 bronchoscopy per pulmonology, bronchial washings positive for Enterobacter cloacae Postoperative acute blood loss anemia, a potential expected outcome of surgery. Patient currently laying in bed in no acute distress on mechanical ventilation. Tracheostomy to be placed today. Possible PEG later today by Dr. Freitas. Objective - Vital Signs Vital signs: Vital Signs Temp 98.6 F 06/14/17 08:00 Pulse 120 H 06/14/17 08:12 Resp 28 H 06/14/17 08:00 BP 144/69 06/09/17 10:00 Pulse Ox 99 06/14/17 08:00 Intake & Output 06/13/17 06/14/17 06/14/17 18:59 06:59 18:59 Intake Total 7317.594 9751.092 51.525 Output Total 705 915 160 Balance 1279.141 290.092 -108.475 Weight 122.5 kg Intake: IV 453 299 46 0.9 for pressure 33 39 6 LR 220 260 40 Meropenem 1 gm In Sodium 200 Chloride 0.9% 100 ml @ 200 mls/hr IVPB Q8HR [facility] Rx#:[id number] Intake, IV Titration 187.141 374.092 5.525 Amount Insulin Regular 100 unit 101.266 74.092 5.525 In Sodium Chloride 0.9% 100 ml @ Per Protocol IV .Q0M [facility] Rx#:[id number] Propofol 1,000 mg In 85.875 300 Empty Bag 1 bag @ Titrate IV .Q0M [facility] Rx#: [id number] Oral 180 54 Tube Feeding 864 378 0 Other 300 100 Output: Drainage 140 Right Lower Medial Calf 140 Urine 705 775 160 Other: Voiding Method Indwelling Catheter Indwelling Catheter Indwelling Catheter # Bowel Movements 0 ABP, PAP, CO, CI - Last Documented Arterial Blood Pressure 113/69 Pulmonary Artery Pressure 33/21 Cardiac Output 5 Cardiac Index 2.4 - Constitutional General appearance: Present: no acute distress, obese - Respiratory Details: Lungs sounds diminished bilaterally. Respirations even, nonlabored. Currently on mechanical ventilation, assist control mode, FiO2 50%, tidal volume 400, respiratory rate 28, PEEP 10. ABGs this morning 7.49/36/93/28/4.3/98% on 40% FiO2. - Cardiovascular Details: S1, S2 present. Irregular, tachycardia rate and rhythm, uncontrolled atrial fibrillation on telemetry. Sternum stable. Palpable peripheral pulses bilaterally. Generalized edema present. Left radial arterial line, left brachial PICC line present. Heart hugger, antiembolism stockings, SCDs present. - Gastrointestinal Gastrointestinal Comment(s): Abdomen soft, nontender, nondistended. Active bowel sounds 4 quadrants. OG tube present. Currently nothing by mouth for surgery. - Genitourinary Genitourinary Comment(s): Lea present draining clear, yellow urine. Output 50-75 mL/h overnight. - Integumentary Integumentary Comment(s): Skin is warm and dry. Anterior chest incision well approximated and covered with dry intact dressing. Right lower extremity EVH site well approximated, DREW drain with 70 mL serous drainage overnight. - Neurologic Neurologic Comment(s): Opens eyes when off sedation. Does not track, does not follow commands. - Musculoskeletal Musculoskeletal: Present: generalized weakness - Allied health notes Allied health notes reviewed: nursing - Labs CBC & Chem 7: 06/14/17 04:50 06/14/17 04:50 Labs: Abnormal Lab Results - Last 24 Hours (Table) 06/13/17 06/13/17 06/13/17 Range/Units 10:03 12:07 13:19 RBC (3.80-5.40) m/uL Hgb (11.4-16.0) gm/dL Hct (34.0-46.0) % MCHC (31.0-37.0) g/dL RDW (11.5-15.5) % Neutrophils # (1.3-7.7) k/uL Lymphocytes # (1.0-4.8) k/uL INR (<1.2) ABG pH (7.35-7.45) ABG HCO3 (21-25) mmol/L ABG Total CO2 (19-24) mmol/L ABG O2 Saturation (94-97) % Sodium (137-145) mmol/L Chloride (98-107) mmol/L BUN (7-17) mg/dL Glucose (74-99) mg/dL POC Glucose (mg/dL) 152 H 144 H 143 H (75-99) mg/dL Magnesium (1.6-2.3) mg/dL Total Protein (6.3-8.2) g/dL Albumin (3.5-5.0) g/dL 06/13/17 06/13/17 06/13/17 Range/Units 14:22 15:38 17:02 RBC (3.80-5.40) m/uL Hgb (11.4-16.0) gm/dL Hct (34.0-46.0) % MCHC (31.0-37.0) g/dL RDW (11.5-15.5) % Neutrophils # (1.3-7.7) k/uL Lymphocytes # (1.0-4.8) k/uL INR (<1.2) ABG pH (7.35-7.45) ABG HCO3 (21-25) mmol/L ABG Total CO2 (19-24) mmol/L ABG O2 Saturation (94-97) % Sodium (137-145) mmol/L Chloride (98-107) mmol/L BUN (7-17) mg/dL Glucose (74-99) mg/dL POC Glucose (mg/dL) 141 H 122 H 111 H (75-99) mg/dL Magnesium (1.6-2.3) mg/dL Total Protein (6.3-8.2) g/dL Albumin (3.5-5.0) g/dL 06/13/17 06/13/17 06/13/17 Range/Units 18:08 18:50 19:56 RBC (3.80-5.40) m/uL Hgb (11.4-16.0) gm/dL Hct (34.0-46.0) % MCHC (31.0-37.0) g/dL RDW (11.5-15.5) % Neutrophils # (1.3-7.7) k/uL Lymphocytes # (1.0-4.8) k/uL INR (<1.2) ABG pH (7.35-7.45) ABG HCO3 (21-25) mmol/L ABG Total CO2 (19-24) mmol/L ABG O2 Saturation (94-97) % Sodium (137-145) mmol/L Chloride (98-107) mmol/L BUN (7-17) mg/dL Glucose (74-99) mg/dL POC Glucose (mg/dL) 134 H 157 H 125 H (75-99) mg/dL Magnesium (1.6-2.3) mg/dL Total Protein (6.3-8.2) g/dL Albumin (3.5-5.0) g/dL 06/13/17 06/13/17 06/13/17 Range/Units 20:58 22:00 23:09 RBC (3.80-5.40) m/uL Hgb (11.4-16.0) gm/dL Hct (34.0-46.0) % MCHC (31.0-37.0) g/dL RDW (11.5-15.5) % Neutrophils # (1.3-7.7) k/uL Lymphocytes # (1.0-4.8) k/uL INR (<1.2) ABG pH (7.35-7.45) ABG HCO3 (21-25) mmol/L ABG Total CO2 (19-24) mmol/L ABG O2 Saturation (94-97) % Sodium (137-145) mmol/L Chloride (98-107) mmol/L BUN (7-17) mg/dL Glucose (74-99) mg/dL POC Glucose (mg/dL) 127 H 107 H 135 H (75-99) mg/dL Magnesium (1.6-2.3) mg/dL Total Protein (6.3-8.2) g/dL Albumin (3.5-5.0) g/dL 06/13/17 06/14/17 06/14/17 Range/Units 23:47 00:55 01:59 RBC (3.80-5.40) m/uL Hgb (11.4-16.0) gm/dL Hct (34.0-46.0) % MCHC (31.0-37.0) g/dL RDW (11.5-15.5) % Neutrophils # (1.3-7.7) k/uL Lymphocytes # (1.0-4.8) k/uL INR (<1.2) ABG pH (7.35-7.45) ABG HCO3 (21-25) mmol/L ABG Total CO2 (19-24) mmol/L ABG O2 Saturation (94-97) % Sodium (137-145) mmol/L Chloride (98-107) mmol/L BUN (7-17) mg/dL Glucose (74-99) mg/dL POC Glucose (mg/dL) 150 H 114 H 105 H (75-99) mg/dL Magnesium (1.6-2.3) mg/dL Total Protein (6.3-8.2) g/dL Albumin (3.5-5.0) g/dL 06/14/17 06/14/17 06/14/17 Range/Units 02:35 03:24 04:01 RBC (3.80-5.40) m/uL Hgb (11.4-16.0) gm/dL Hct (34.0-46.0) % MCHC (31.0-37.0) g/dL RDW (11.5-15.5) % Neutrophils # (1.3-7.7) k/uL Lymphocytes # (1.0-4.8) k/uL INR (<1.2) ABG pH (7.35-7.45) ABG HCO3 (21-25) mmol/L ABG Total CO2 (19-24) mmol/L ABG O2 Saturation (94-97) % Sodium (137-145) mmol/L Chloride (98-107) mmol/L BUN (7-17) mg/dL Glucose (74-99) mg/dL POC Glucose (mg/dL) 130 H 121 H 117 H (75-99) mg/dL Magnesium (1.6-2.3) mg/dL Total Protein (6.3-8.2) g/dL Albumin (3.5-5.0) g/dL 06/14/17 06/14/17 06/14/17 Range/Units 04:13 04:50 04:50 RBC 2.81 L (3.80-5.40) m/uL Hgb 7.8 L (11.4-16.0) gm/dL Hct 26.1 L (34.0-46.0) % MCHC 30.0 L (31.0-37.0) g/dL RDW 16.8 H (11.5-15.5) % Neutrophils # 8.1 H (1.3-7.7) k/uL Lymphocytes # 0.8 L (1.0-4.8) k/uL INR (<1.2) ABG pH 7.49 H (7.35-7.45) ABG HCO3 28 H (21-25) mmol/L ABG Total CO2 29 H (19-24) mmol/L ABG O2 Saturation 98.1 H (94-97) % Sodium 149 H (137-145) mmol/L Chloride 113 H (98-107) mmol/L BUN 53 H (7-17) mg/dL Glucose 105 H (74-99) mg/dL POC Glucose (mg/dL) (75-99) mg/dL Magnesium 2.8 H (1.6-2.3) mg/dL Total Protein 5.5 L (6.3-8.2) g/dL Albumin 2.4 L (3.5-5.0) g/dL 06/14/17 06/14/17 06/14/17 Range/Units 04:50 04:50 06:21 RBC (3.80-5.40) m/uL Hgb (11.4-16.0) gm/dL Hct (34.0-46.0) % MCHC (31.0-37.0) g/dL RDW (11.5-15.5) % Neutrophils # (1.3-7.7) k/uL Lymphocytes # (1.0-4.8) k/uL INR 1.2 H (<1.2) ABG pH (7.35-7.45) ABG HCO3 (21-25) mmol/L ABG Total CO2 (19-24) mmol/L ABG O2 Saturation (94-97) % Sodium (137-145) mmol/L Chloride (98-107) mmol/L BUN (7-17) mg/dL Glucose (74-99) mg/dL POC Glucose (mg/dL) 110 H 123 H (75-99) mg/dL Magnesium (1.6-2.3) mg/dL Total Protein (6.3-8.2) g/dL Albumin (3.5-5.0) g/dL 06/14/17 06/14/17 Range/Units 06:59 08:08 RBC (3.80-5.40) m/uL Hgb (11.4-16.0) gm/dL Hct (34.0-46.0) % MCHC (31.0-37.0) g/dL RDW (11.5-15.5) % Neutrophils # (1.3-7.7) k/uL Lymphocytes # (1.0-4.8) k/uL INR (<1.2) ABG pH (7.35-7.45) ABG HCO3 (21-25) mmol/L ABG Total CO2 (19-24) mmol/L ABG O2 Saturation (94-97) % Sodium (137-145) mmol/L Chloride (98-107) mmol/L BUN (7-17) mg/dL Glucose (74-99) mg/dL POC Glucose (mg/dL) 103 H 146 H (75-99) mg/dL Magnesium (1.6-2.3) mg/dL Total Protein (6.3-8.2) g/dL Albumin (3.5-5.0) g/dL Microbiology - Last 24 Hours (Table) 06/12/17 14:19 Urine Culture - Final Urine,Catheterized 06/12/17 14:53 Blood Culture - Preliminary Blood No Growth after 24 hours 06/12/17 17:25 Gram Stain - Preliminary Sputum Sputum Culture - Preliminary - Imaging and Cardiology Chest x-ray: report reviewed, image reviewed Assessment and Plan (1) Hypertension Current Visit: Yes Status: Chronic Code(s): I10 - ESSENTIAL (PRIMARY) HYPERTENSION SNOMED Code(s): 13116971 (2) Hyperlipidemia Current Visit: Yes Status: Chronic Code(s): E78.5 - HYPERLIPIDEMIA, UNSPECIFIED SNOMED Code(s): 50201654 (3) Diabetes mellitus Current Visit: Yes Status: Chronic Code(s): E11.9 - TYPE 2 DIABETES MELLITUS WITHOUT COMPLICATIONS SNOMED Code(s): 85520637 (4) Previous myocardial infarction older than 8 weeks Current Visit: No Status: Resolved Code(s): I25.2 - OLD MYOCARDIAL INFARCTION SNOMED Code(s): 8748591 (5) History of heart artery stent Current Visit: Yes Status: Chronic Code(s): Z95.5 - PRESENCE OF CORONARY ANGIOPLASTY IMPLANT AND GRAFT SNOMED Code(s): 715054496 (6) Tobacco dependence in remission Current Visit: No Status: Resolved Code(s): F17.201 - NICOTINE DEPENDENCE, UNSPECIFIED, IN REMISSION SNOMED Code(s): 628113195 (7) Family history of premature coronary artery disease Current Visit: Yes Status: Chronic Code(s): Z82.49 - FAMILY HX OF ISCHEM HEART DIS AND OTH DIS OF THE CIRC SYS SNOMED Code(s): 460190788 (8) History of right breast cancer Current Visit: No Status: Resolved Code(s): Z85.3 - PERSONAL HISTORY OF MALIGNANT NEOPLASM OF BREAST SNOMED Code(s): 544065488 (9) Non-STEMI (non-ST elevated myocardial infarction) Current Visit: Yes Status: Acute Code(s): I21.4 - NON-ST ELEVATION (NSTEMI) MYOCARDIAL INFARCTION SNOMED Code(s): 565466779 (10) Morbid obesity with BMI of 40.0-44.9, adult Current Visit: Yes Status: Chronic Code(s): E66.01 - MORBID (SEVERE) OBESITY DUE TO EXCESS CALORIES; Z68.41 - BODY MASS INDEX (BMI) 40.0-44.9, ADULT SNOMED Code(s): 044449708 Plan: 1. Continue aspirin, statin, Plavix, beta doretha, digoxin. 2. Continue amiodarone for A. fib prophylaxis. No anticoagulation at this time. 3. Ventilator management, antibiotics per pulmonology. Tracheostomy placement today. Possible PEG placement later today by Dr. Freitas. 4. GI/DVT prophylaxis. 5. Will monitor daily labs and x-rays. 6. Insulin drip per primary care service. 7. Keep Lea for strict accurate I and O's. 8. Restart tube feedings after PEG placement for maximal nutrition per dietary recommendations. 9. No diuresis today. 10. More recommendations to follow. Time with Patient: Greater than 30
[2017-06-14] MEDS: POTASSIUM BICARBONATE/CIT AC 20 MEQ TABLET.EFF PO SCH (10:35)
[2017-06-14] MEDS: CHLORHEXIDINE GLUCONATE 15 ML CUP MUCOUS MEM SCH ×2 (10:35→20:23)
[2017-06-14] MEDS: PANTOPRAZOLE 40 MG/10 ML VIAL IVP SCH (10:35)
[2017-06-14] MEDS: QUEtiapine 25 MG TAB PO SCH ×2 (10:36→20:23)
--- NOTE | 2017-06-14 10:37 | OP ---
OPERATIVE REPORT DATE OF SURGERY: 06/14/2017. SURGEON: Fabi Lujan MD. ALUMINUM SHEET CUTTER: NIECY Howard PREOPERATIVE DIAGNOSIS: Ventilator dependent, status post emergent coronary artery bypass grafting. POSTOPERATIVE DIAGNOSIS: Ventilator dependent, status post emergent coronary artery bypass grafting. PROCEDURE: Tracheostomy. INDICATION FOR SURGERY: Mrs. Kaufman is a 66-year-old lady who underwent around 10 days ago, emergent coronary artery bypass grafting. The patient is ventilator dependent and at this point is going for tracheostomy. Risks, benefits, and alternatives were discussed with her , who gave the consent for surgery. DESCRIPTION OF THE PROCEDURE: The patient in supine position with the neck hyperextended. General gas anesthesia was administered. The neck and upper chest were prepped and draped using ChloraPrep. The patient received 3 grams of cefazolin intravenously. She was in rapid atrial fibrillation and for that reason we gave 0.25 mg intravenously of digoxin. A 3 cm circumlinear incision was made one fingerbreadth above the sternal notch. The patient has a very short neck. Dissection proceeded down to the platysma in a transverse fashion then we proceeded longitudinally in the midline and stumbled on the thyroid. Blunt and sharp dissection identified the trachea low behind the sternum and I sweep the thyroid isthmus bluntly with a peanut a bit superiorly hooked to the first thyroid cartilage with a tracheal hook and brought the trachea superiorly. At this point, the patient was on 60% FiO2. With a 15 blade, I made a cruciate incision at the level of the second tracheal ring and the ET tube was withdrawn under vision just proximal to that opening. With the tracheal dilator that opening was dilated, then a #8 Shiley tracheostomy tube was inserted and connected to the respiratory circuit. Once adequate gas exchange was established, the ET tube was removed. There was no bleeding. The tracheostomy was affixed to the skin with Prolene 2-0 on each side and with a neck strap. Patient tolerated procedure well and was transferred back to the ICU in stable condition. MMODL / IJN: [id number] / [facility]
[2017-06-14 10:38] LABS: Glucose,Whole Blood 101 mg/dL (75-99)
[2017-06-14] MEDS: ASCORBIC ACID 500 MG TAB PO SCH ×2 (10:53→20:23)
[2017-06-14] MEDS: MEROPENEM 1 GM in SODIUM CHLORIDE 0.9% 100 ML IVPB SCH ×3 (10:53→23:49)
[2017-06-14] MEDS: METOPROLOL TARTRATE 50 MG TAB PO SCH ×2 (10:53→20:23)
[2017-06-14] MEDS: AMIODARONE 200 MG TAB PO SCH ×2 (10:53→20:23)
[2017-06-14] MEDS: FERROUS SULFATE ORAL ELIXIR 300 MG/5 ML CUP OG-TUBE SCH ×2 (10:54→16:30)
[2017-06-14] MEDS: CLOPIDOGREL 75 MG TAB PO SCH (10:54)
[2017-06-14] MEDS: ASPIRIN 81 MG PO SCH (10:54)
[2017-06-14] MEDS: ATORVASTATIN 40 MG TAB PO SCH (10:54)
--- NOTE | 2017-06-14 11:13 | P.PN ---
Subjective Progress Note Date: 06/14/17 Progress note dated 06/11/2017 This is a 66-year-old female with acute hypoxemic respiratory failure status post four-vessel bypass grafting, postop day #9. The patient had a history of acute cardiac arrest and was resuscitated successfully. She was intubated and placed on mechanical ventilator. She is postop day #9 status post four-vessel bypass grafting. Upper this point, the patient has not really had any major or significant weaning towards extubation. She does have a history of COPD with an FEV1 at 76% of predicted suggesting moderate disease. In addition, the patient has history of sleep apnea syndrome obesity CAD pneumonia hyperlipidemia hypertension right breast cancer with previous lumpectomy and lymph node dissection gastroesophageal reflux disease diabetes mellitus anemia and left lower lobe pneumonia secondary to Enterobacter cloacae. Currently, the chest x-ray shows either consolidation or effusion in the left lower lobe. The patient is on the ventilator with the assist control mode rate of 18 tidal volume of 500 FiO2 50% and PEEP of 5. Blood gases show a PaO2 of 69 a PaCO2 34 and pH 7.52. The patient is receiving saline IV at 70 mL an hour , propofol at 25 mics per kilogram per minute Primacor 0.125 mcg/kg/m insulin drip which is currently on hold and vital high protein tube feeds at 54 with a goal of 54 mL an hour. We will attempt a daily eruption of sedation on her and see whether or not she would tolerate a spontaneous breathing trial. I did make some vent changes dropping the volume down to 400 and increasing the rate to 28. Her spontaneous rate was about 28. She was admitted on May 28 and had her four- vessel bypass grafting on June 02. Her hospitalization was been uncomplicated by atrial fibrillation with rapid ventricular response. Progress note dated 06/12/2017 This is a 66-year-old female with acute hypoxemic respiratory failure status post four-vessel bypass grafting, postop day #10. The patient had a history of acute cardiac arrest and was resuscitated successfully. She was intubated and placed on mechanical ventilator. She is postop day #9 status post four-vessel bypass grafting. Upper this point, the patient has not really had any major or significant weaning towards extubation. She does have a history of COPD with an FEV1 at 76% of predicted suggesting moderate disease. In addition, the patient has history of sleep apnea syndrome obesity CAD pneumonia hyperlipidemia hypertension right breast cancer with previous lumpectomy and lymph node dissection gastroesophageal reflux disease diabetes mellitus anemia and left lower lobe pneumonia secondary to Enterobacter cloacae. Currently, the chest x-ray shows either consolidation or effusion in the left lower lobe. The patient is on the ventilator with the assist control mode rate of 28 tidal volume of 400 FiO2 50% and PEEP of 10. Blood gases show a PaO2 of 79 a PaCO2 36 and pH 7.47. The patient is receiving saline IV at 70 mL an hour , propofol at 25 mics per kilogram per minute Primacor 0.125 mcg/kg/m insulin drip which is currently on hold and vital high protein tube feeds at 54 with a goal of 54 mL an hour. We will attempt a daily interuption of sedation on her and see whether or not she would tolerate a spontaneous breathing trial. I did make some vent changes dropping the volume down to 400 and increasing the rate to 28. Her spontaneous rate was about 28. She was admitted on May 28 and had her four-vessel bypass grafting on June 02. Her hospitalization was been uncomplicated by atrial fibrillation with rapid ventricular response. The patient did spend about 1-1/2 hours on PSV 10 and CPAP of 5 yesterday. Unfortunately, the weaning trial was aborted because of high respiratory rate in atrial fibrillation with RVR. She is likely to be having a tracheostomy sometime this week. Again we will attempt PSV and CPAP sometime today. Prognosis on my opinion is not good for successful weaning and this patient. Progress note dated 06/13/2017 66-year-old female with a history of acute hypoxemic respiratory failure, status post four-vessel bypass grafting, postop day #11. The patient has a history of acute cardiac arrest and was resuscitated successfully. She was intubated and placed on mechanical ventilator. She is postop day 11 status post four-vessel bypass grafting. Up to this point, the patient has not really had any major significant weaning towards extubation. Will be due stop her sedation, she becomes very tachypneic and dyspneic. She also becomes very tachycardic with A. fib and RVR. She does have history of COPD with an FEV1 at 76% of predicted suggesting mild/moderate COPD. In addition, she suffers from sleep apnea syndrome obesity CAD pneumonia hyperlipidemia hypertension right breast cancer with previous lumpectomy and lymph node dissection GERD diabetes mellitus anemia left lower lobe pneumonia secondary to Enterobacter cloaca. Currently, chest x-ray continues to show a patchy infiltrate or effusion at the left lung base. There also may be some atelectasis at the left lung base. Currently she is on the assist control mode rate of 28 tidal volume 400 FiO2 50 % and PEEP of 10. With those settings, her PaO2 of 78 pCO2 was 37 and pH 7.49. She is currently on propofol at 30 mics per kilogram per minute insulin drip which is currently on hold lactated Ringer's IV at 20 mL an hour and vital high protein tube feeds at 54 mL per hour with a goal of 54 mL per hour. Today we will try a daily interuption of sedation on both pressure support and CPAP. She is apparently scheduled for a trach and PEG tomorrow by Dr. Lujan on June 14 Over the last 3 or 4 days and I been seeing her, the patient really has made no significant progress towards extubation. Progress note dated 06/14/2017 The patient is seen again today in the intensive care unit. She remains intubated on the mechanical ventilator. Current vent settings assist control 20 , tidal volume 400, FiO2 50% and a PEEP of 10. Morning blood gases reveal a P O2 of 92, pCO2 36 pH 7.49. Chest x-ray remains stable with small left pleural effusion and left basilar airspace disease most likely atelectasis. She remains unresponsive spite multiple daily interruption subsidization. She opens her eyes. She does not follow any simple commands. She's had failure to wean. She is currently on propofol at 30 mcg/kg/m. She has a 0.9 normal saline at 20 mls per hour. She is on a insulin drip currently at 10 units per hour. Tube feeds on hold for tracheostomy tube placement this morning. Objective - Vital Signs Vital signs: Vital Signs Temp 98.6 F 06/14/17 08:00 Pulse 120 H 06/14/17 08:12 Resp 28 H 06/14/17 08:00 BP 144/69 06/09/17 10:00 Pulse Ox 99 06/14/17 08:00 Intake & Output 06/13/17 06/14/17 06/14/17 18:59 06:59 18:59 Intake Total 0262.992 3165.092 401.525 Output Total 705 915 162 Balance 1279.141 290.092 239.525 Weight 122.5 kg Intake: IV 453 299 396 0.9 for pressure 33 39 6 LR 220 260 40 Meropenem 1 gm In Sodium 200 Chloride 0.9% 100 ml @ 200 mls/hr IVPB Q8HR [facility] Rx#:[id number] Intake, IV Titration 187.141 374.092 5.525 Amount Insulin Regular 100 unit 101.266 74.092 5.525 In Sodium Chloride 0.9% 100 ml @ Per Protocol IV .Q0M [facility] Rx#:[id number] Propofol 1,000 mg In 85.875 300 Empty Bag 1 bag @ Titrate IV .Q0M [facility] Rx#: [id number] Oral 180 54 Tube Feeding 864 378 0 Other 300 100 Output: Drainage 140 Right Lower Medial Calf 140 Urine 705 775 160 Estimated Blood Loss 2 Other: Voiding Method Indwelling Catheter Indwelling Catheter Indwelling Catheter # Bowel Movements 0 ABP, PAP, CO, CI - Last Documented Arterial Blood Pressure 113/69 Pulmonary Artery Pressure 33/21 Cardiac Output 5 Cardiac Index 2.4 - Exam No acute distress, the patient is currently sedated and has a endotracheal tube and NG tube in place. HEENT examination is grossly unremarkable. Mucous membranes are moist. Neck supple. Full range of motion. No adenopathy. Cardiovascular examination reveals a regular rhythm rate. Heart rate about 125 or 1 30 bpm. She is in atrial fibrillation. Lungs reveal some diffuse rhonchi. Breath sounds are diminished. No wheezes. Abdomen soft bowel sounds are heard. Extremities are intact. No cyanosis clubbing or edema. Skin without rash. Neurologic examination cannot be performed. - Labs CBC & Chem 7: 06/14/17 04:50 06/14/17 04:50 Labs: Abnormal Lab Results - Last 24 Hours (Table) 06/13/17 06/13/17 06/13/17 Range/Units 12:07 13:19 14:22 RBC (3.80-5.40) m/uL Hgb (11.4-16.0) gm/dL Hct (34.0-46.0) % MCHC (31.0-37.0) g/dL RDW (11.5-15.5) % Neutrophils # (1.3-7.7) k/uL Lymphocytes # (1.0-4.8) k/uL INR (<1.2) ABG pH (7.35-7.45) ABG HCO3 (21-25) mmol/L ABG Total CO2 (19-24) mmol/L ABG O2 Saturation (94-97) % Sodium (137-145) mmol/L Chloride (98-107) mmol/L BUN (7-17) mg/dL Glucose (74-99) mg/dL POC Glucose (mg/dL) 144 H 143 H 141 H (75-99) mg/dL Magnesium (1.6-2.3) mg/dL Total Protein (6.3-8.2) g/dL Albumin (3.5-5.0) g/dL 06/13/17 06/13/17 06/13/17 Range/Units 15:38 17:02 18:08 RBC (3.80-5.40) m/uL Hgb (11.4-16.0) gm/dL Hct (34.0-46.0) % MCHC (31.0-37.0) g/dL RDW (11.5-15.5) % Neutrophils # (1.3-7.7) k/uL Lymphocytes # (1.0-4.8) k/uL INR (<1.2) ABG pH (7.35-7.45) ABG HCO3 (21-25) mmol/L ABG Total CO2 (19-24) mmol/L ABG O2 Saturation (94-97) % Sodium (137-145) mmol/L Chloride (98-107) mmol/L BUN (7-17) mg/dL Glucose (74-99) mg/dL POC Glucose (mg/dL) 122 H 111 H 134 H (75-99) mg/dL Magnesium (1.6-2.3) mg/dL Total Protein (6.3-8.2) g/dL Albumin (3.5-5.0) g/dL 06/13/17 06/13/17 06/13/17 Range/Units 18:50 19:56 20:58 RBC (3.80-5.40) m/uL Hgb (11.4-16.0) gm/dL Hct (34.0-46.0) % MCHC (31.0-37.0) g/dL RDW (11.5-15.5) % Neutrophils # (1.3-7.7) k/uL Lymphocytes # (1.0-4.8) k/uL INR (<1.2) ABG pH (7.35-7.45) ABG HCO3 (21-25) mmol/L ABG Total CO2 (19-24) mmol/L ABG O2 Saturation (94-97) % Sodium (137-145) mmol/L Chloride (98-107) mmol/L BUN (7-17) mg/dL Glucose (74-99) mg/dL POC Glucose (mg/dL) 157 H 125 H 127 H (75-99) mg/dL Magnesium (1.6-2.3) mg/dL Total Protein (6.3-8.2) g/dL Albumin (3.5-5.0) g/dL 06/13/17 06/13/17 06/13/17 Range/Units 22:00 23:09 23:47 RBC (3.80-5.40) m/uL Hgb (11.4-16.0) gm/dL Hct (34.0-46.0) % MCHC (31.0-37.0) g/dL RDW (11.5-15.5) % Neutrophils # (1.3-7.7) k/uL Lymphocytes # (1.0-4.8) k/uL INR (<1.2) ABG pH (7.35-7.45) ABG HCO3 (21-25) mmol/L ABG Total CO2 (19-24) mmol/L ABG O2 Saturation (94-97) % Sodium (137-145) mmol/L Chloride (98-107) mmol/L BUN (7-17) mg/dL Glucose (74-99) mg/dL POC Glucose (mg/dL) 107 H 135 H 150 H (75-99) mg/dL Magnesium (1.6-2.3) mg/dL Total Protein (6.3-8.2) g/dL Albumin (3.5-5.0) g/dL 06/14/17 06/14/17 06/14/17 Range/Units 00:55 01:59 02:35 RBC (3.80-5.40) m/uL Hgb (11.4-16.0) gm/dL Hct (34.0-46.0) % MCHC (31.0-37.0) g/dL RDW (11.5-15.5) % Neutrophils # (1.3-7.7) k/uL Lymphocytes # (1.0-4.8) k/uL INR (<1.2) ABG pH (7.35-7.45) ABG HCO3 (21-25) mmol/L ABG Total CO2 (19-24) mmol/L ABG O2 Saturation (94-97) % Sodium (137-145) mmol/L Chloride (98-107) mmol/L BUN (7-17) mg/dL Glucose (74-99) mg/dL POC Glucose (mg/dL) 114 H 105 H 130 H (75-99) mg/dL Magnesium (1.6-2.3) mg/dL Total Protein (6.3-8.2) g/dL Albumin (3.5-5.0) g/dL 06/14/17 06/14/17 06/14/17 Range/Units 03:24 04:01 04:13 RBC (3.80-5.40) m/uL Hgb (11.4-16.0) gm/dL Hct (34.0-46.0) % MCHC (31.0-37.0) g/dL RDW (11.5-15.5) % Neutrophils # (1.3-7.7) k/uL Lymphocytes # (1.0-4.8) k/uL INR (<1.2) ABG pH 7.49 H (7.35-7.45) ABG HCO3 28 H (21-25) mmol/L ABG Total CO2 29 H (19-24) mmol/L ABG O2 Saturation 98.1 H (94-97) % Sodium (137-145) mmol/L Chloride (98-107) mmol/L BUN (7-17) mg/dL Glucose (74-99) mg/dL POC Glucose (mg/dL) 121 H 117 H (75-99) mg/dL Magnesium (1.6-2.3) mg/dL Total Protein (6.3-8.2) g/dL Albumin (3.5-5.0) g/dL 06/14/17 06/14/17 06/14/17 Range/Units 04:50 04:50 04:50 RBC 2.81 L (3.80-5.40) m/uL Hgb 7.8 L (11.4-16.0) gm/dL Hct 26.1 L (34.0-46.0) % MCHC 30.0 L (31.0-37.0) g/dL RDW 16.8 H (11.5-15.5) % Neutrophils # 8.1 H (1.3-7.7) k/uL Lymphocytes # 0.8 L (1.0-4.8) k/uL INR 1.2 H (<1.2) ABG pH (7.35-7.45) ABG HCO3 (21-25) mmol/L ABG Total CO2 (19-24) mmol/L ABG O2 Saturation (94-97) % Sodium 149 H (137-145) mmol/L Chloride 113 H (98-107) mmol/L BUN 53 H (7-17) mg/dL Glucose 105 H (74-99) mg/dL POC Glucose (mg/dL) (75-99) mg/dL Magnesium 2.8 H (1.6-2.3) mg/dL Total Protein 5.5 L (6.3-8.2) g/dL Albumin 2.4 L (3.5-5.0) g/dL 06/14/17 06/14/17 06/14/17 Range/Units 04:50 06:21 06:59 RBC (3.80-5.40) m/uL Hgb (11.4-16.0) gm/dL Hct (34.0-46.0) % MCHC (31.0-37.0) g/dL RDW (11.5-15.5) % Neutrophils # (1.3-7.7) k/uL Lymphocytes # (1.0-4.8) k/uL INR (<1.2) ABG pH (7.35-7.45) ABG HCO3 (21-25) mmol/L ABG Total CO2 (19-24) mmol/L ABG O2 Saturation (94-97) % Sodium (137-145) mmol/L Chloride (98-107) mmol/L BUN (7-17) mg/dL Glucose (74-99) mg/dL POC Glucose (mg/dL) 110 H 123 H 103 H (75-99) mg/dL Magnesium (1.6-2.3) mg/dL Total Protein (6.3-8.2) g/dL Albumin (3.5-5.0) g/dL 06/14/17 06/14/17 Range/Units 08:08 10:36 RBC (3.80-5.40) m/uL Hgb (11.4-16.0) gm/dL Hct (34.0-46.0) % MCHC (31.0-37.0) g/dL RDW (11.5-15.5) % Neutrophils # (1.3-7.7) k/uL Lymphocytes # (1.0-4.8) k/uL INR (<1.2) ABG pH (7.35-7.45) ABG HCO3 (21-25) mmol/L ABG Total CO2 (19-24) mmol/L ABG O2 Saturation (94-97) % Sodium (137-145) mmol/L Chloride (98-107) mmol/L BUN (7-17) mg/dL Glucose (74-99) mg/dL POC Glucose (mg/dL) 146 H 101 H (75-99) mg/dL Magnesium (1.6-2.3) mg/dL Total Protein (6.3-8.2) g/dL Albumin (3.5-5.0) g/dL Microbiology - Last 24 Hours (Table) 06/12/17 14:19 Urine Culture - Final Urine,Catheterized 06/12/17 14:53 Blood Culture - Preliminary Blood No Growth after 24 hours 06/12/17 17:25 Gram Stain - Preliminary Sputum Sputum Culture - Preliminary Assessment and Plan Assessment: Assessment Hypoxemic respiratory failure status post acute cardiopulmonary arrest requiring intubation and mechanical ventilation and successful resuscitation. Ischemia induced ventricular fibrillation Severe multivessel coronary disease, status post four-vessel bypass grafting, postoperative day #10 Mild/moderate COPD Sleep apnea syndrome, severe Obesity Coronary disease, with previous stenting Recent hospitalization at [facility] for right lower lobe pneumonia History of right breast cancer with lumpectomy and lymph node dissection GERD Diabetes mellitus Anemia Enterobacter cloacae left lower lobe pneumonia Plan: The patient was seen and evaluated by Dr. Ott. Her chest x-ray, ABGs and labs were all reviewed. Continue current vent settings for now. Continue bronchodilators. Continue meropenem. The plan is for tracheostomy tube placement this morning. She continues to have failure to wean. We'll continue with daily interruption of sedation and weaning parameters however. The plan is for PEG tube insertion today as well. Critical care time 36 minutes. I, the cosigning physician, performed a history & physical examination of the patient. Lungs sounds with few scattered rhonchi, crackles in the posterior bases. Maintaining good O2 saturations in the 90s on 50% FiO2. I discussed the assessment and plan of care with my nurse practitioner, Etta Loyola. I attest to the above note as dictated by her. Time with Patient: Greater than 30
--- NOTE | 2017-06-14 11:35 | XR ---
EXAMINATION TYPE: XR chest 1V DATE OF EXAM: 06/14/2017 COMPARISON: 06/12/2017 HISTORY: Respiratory failure. TECHNIQUE: Single frontal view of the chest is obtained. FINDINGS: Endotracheal tube has been removed and replaced with minimal tracheostomy. Endotracheal tu be has been slightly advanced in the interim and is appropriately placed. Cardia mediastinal silhouet te is again enlarged with obscuration of the retrocardiac airspace and left costophrenic angle, simil ar to the prior. Right lung remains clear other than minimal right basilar subsegmental atelectasis. Osseous structures are grossly intact. IMPRESSION: Replacement of the endotracheal tube with the midline tracheostomy and new right basilar subsegmental atelectasis. Otherwise the exam is similar to the prior with a probable small left pleu ral effusion and left basilar atelectasis obscuring the retrocardiac airspace.
[2017-06-14 11:38] LABS: Glucose,Whole Blood 136 mg/dL (75-99)
[2017-06-14] MEDS: SODIUM CHLORIDE 0.45% 1,000 ML IV SCH (13:04)
[2017-06-14 13:06] LABS: Glucose,Whole Blood 124 mg/dL (75-99)
[2017-06-14 14:26] LABS: Glucose,Whole Blood 99 mg/dL (75-99)
[2017-06-14] MEDS ORDERED: IV FLUID CONTINUATION 1,000 ML IV ONE (14:58)
[2017-06-14] MEDS ORDERED: PROPOFOL 10 MG/ML 20 ML VIAL IV ONE (15:56)
[2017-06-14] MEDS: INSULIN REGULAR 100 UNIT in SODIUM CHLORIDE 0.9% 100 ML IV SCH (16:30)
[2017-06-14 16:31] LABS: Glucose,Whole Blood 135 mg/dL (75-99)
--- NOTE | 2017-06-14 16:46 | P.PCN ---
Date of Procedure: 06/14/17 Procedure(s) Performed: PREOPERATIVE DIAGNOSIS: Malnutrition POSTOPERATIVE DIAGNOSIS: Same PROCEDURE: EGD with PEG tube placement SURGEON: Zena EBL: Minimal ANESTHESIA: Sedation COMPLICATIONS: None OPERATIVE PROCEDURE: The patient was kept in the ICU in the supine position. The patient was sedated per anesthesia that time. The Olympus gastroscope was inserted into the oropharynx and passed under direct visualization to the region of the duodenum. No obstruction was seen. The pylorus was widely patent. The stomach was carefully inspected. The stomach was fully insufflated with air. The abdominal wall was inspected. The light was seen shining through the abdominal wall in the left upper quadrant. This site was chosen for PEG tube placement. The area was prepped in the usual sterile fashion. This area was then localized with lidocaine. A small horizontal incision was made using the scalpel. The Seldinger needle was advanced into the lumen of the stomach the wire was advanced. The wire was grasped with an endoscopic snare. The wire was pulled through the oropharynx. The catheter was then threaded over the guidewire and the guidewire and catheter were pulled anteriorly until the hub of the PEG tube catheter was seated against the anterior wall the stomach. The circular bolster was applied and tightened down at 4 cm. The endoscope was then readvanced into the stomach. There was no evidence of any bleeding and there was appropriate tightness on the bolster. The catheter was cut appropriately. The dual port feeding adapter was applied. DISPOSITION: Stable to recovery room
[2017-06-14 17:50] LABS: Glucose,Whole Blood 118 mg/dL (75-99)
--- NOTE | 2017-06-14 18:10 | PN ---
PROGRESS NOTE FOLLOW-UP NOTE: This patient is a 66-year-old lady who with CAD, status post CABG. She is postoperative day number 12. She just had tracheostomy today, still remains sedated and unresponsive. She is in atrial fibrillation with poorly controlled ventricular rate. On exam, patient is sedated. Heart rate is around 130 beats per minute. Blood pressure is 115/69, respiratory rate 18. Chest exam reveals diminished air entry at the bases. Heart exam reveals first and second heart sounds, irregular rhythm. Abdomen is soft. Examination of extremities did not reveal any edema. Peripheral pulses are felt. Labs show a hemoglobin of 7.8. Platelet count is 173. Potassium is 4.3. Creatinine is 0.9. ASSESSMENT: 1. Coronary artery disease, status post coronary artery bypass grafting. 2. Respiratory failure. 3. Postoperative atrial fibrillation. Will continue the patient on amiodarone, metoprolol 100 b.i.d., and if the heart rate continues to remain elevated, we can add p.o. Cardizem. ARMANDO / IJN: [id number] /
[2017-06-14 19:49] LABS: Glucose,Whole Blood 104 mg/dL (75-99)
[2017-06-14 20:16] LABS: Glucose,Whole Blood 93 mg/dL (75-99)
--- NOTE | 2017-06-14 20:16 | PN ---
PROGRESS NOTE DATE OF SERVICE: 06/14/2017 PRESENTING COMPLAINT: Intubated. INTERVAL HISTORY: This patient with known coronary artery disease presented with acute NM and subsequently had a cardiac arrest on the floor followed by ventricular fibrillation and followed by 4-vessel coronary bypass. The patient remains on the ventilator, not able to wean. Patient did have a bronchoscopy and was found to have Enterobacter cloacae pneumonia, for which she received meropenem. Patient remains fail to wean. Patient has barely been responsive. Patient did get a tracheostomy today. Patient has been on propofol drip and insulin drip. Remains on the ventilator with FiO2 of 15 and PEEP of 10. REVIEW OF SYSTEMS: Patient is intubated. CURRENT MEDICATIONS: Current medications are reviewed that include: 1. DuoNeb. 2. P.o. Cordarone. 3. Aspirin. 4. Lipitor. 5. Plavix. 6. Digoxin. 7. Insulin drip. 8. IV meropenem. 9. Lopressor. 10.Singulair. 11.Protonix. 12.IV propofol. 13.Seroquel. 14.Normal saline at 75 mL/hour. PHYSICAL EXAMINATION: Temperature 100.3, pulse 133, respiration 27, blood pressure 111/64, pulse ox 97%. GENERAL APPEARANCE: Lying in bed, intubated. EYES: Pupils equal. Conjunctivae normal. HEENT: External appearance of nose and ears normal. Oral cavity: endotracheal tube now discontinued. NECK: Fresh tracheostomy tube in place. JVD unable to assess. RESPIRATORY: Effort normal. LUNGS: Diminished breath sounds. CARDIOVASCULAR: Heart sounds muffled. Edema present. ABDOMEN: Soft, nontender. Liver and spleen not palpable. NEUROLOGICAL: Pupils are equal, plantars equivocal. INVESTIGATIONS: Chest x-ray results noted. White count 9.4, hemoglobin 7.8, platelets 173. Blood gas showed pH of 7.49. Sodium 149, potassium 4.3, BUN 53, creatinine 0.90. ASSESSMENT: 1. Four-vessel coronary bypass. 2. Coronary artery disease with prior history of stent, presented with acute myocardial infarction on this admission. Subsequently patient had a cardiac arrest with ventricular fibrillation on the floor. 3. Morbid obesity; body mass index greater than 50. 4. Intermittent asthma. 5. Diabetes mellitus, type 2, chronically requiring insulin, currently on insulin drip. 6. Gastroesophageal reflux disease. 7. Hyperlipidemia. 8. Obstructive sleep apnea. Used CPAP until recently. 9. Right mastectomy for cancer. 10.Right axillary lesion, being followed as an outpatient. 11.Bilateral nephrolithiasis, asymptomatic. 12.Left adrenal nodule 2.5 cm. 13.Hypertensive heart disease. 14.Acute respiratory failure, hypoxic, on ventilator assistance with failure to wean. 15.Acute blood loss anemia, expected from surgery, requiring blood transfusion. 16.Hypoalbuminemia as an acute phase reactant. 17.Paroxysmal atrial fibrillation. Patient is in sinus rhythm. 18.Left basal pneumonia with cultures growing Enterobacter cloacae, for which patient is on meropenem. 19.Hypernatremia along with hypochloremia, increased BUN; suspect volume contraction along with possible alkalosis, probably mixed type. PLAN: Care was discussed with Dr. Lujan and Dr. Ott. Patient should get a tracheostomy tube today. Patient will need possibly more fluids at this point, as all parameters are leading to patient looking on the dry side. Prognosis not good. Will follow. MMODL / IJN: [id number] /
[2017-06-14] MEDS: SENNOSIDES-DOCUSATE SODIUM 1 EACH TAB PO SCH (20:23)
[2017-06-14] MEDS: MONTELUKAST 10 MG TAB PO SCH (20:23)
[2017-06-14 21:07] LABS: Glucose,Whole Blood 99 mg/dL (75-99)
[2017-06-14 22:20] LABS: Glucose,Whole Blood 109 mg/dL (75-99)
[2017-06-14 23:05] LABS: Glucose,Whole Blood 124 mg/dL (75-99)
[2017-06-14 23:45] LABS: Glucose,Whole Blood 122 mg/dL (75-99)
[2017-06-15] MEDS: IPRATROPIUM-ALBUTEROL 3 ML NEB INHALATION SCH ×7 (00:09→23:09)
[2017-06-15] MEDS: SODIUM CHLORIDE 0.45% 1,000 ML IV SCH ×2 (00:55→16:31)
[2017-06-15 01:02] LABS: Glucose,Whole Blood 108 mg/dL (75-99)
[2017-06-15] MEDS: PROPOFOL 1,000 MG in EMPTY BAG 1 BAG IV SCH ×2 (02:02→05:41)
[2017-06-15 02:08] LABS: Glucose,Whole Blood 124 mg/dL (75-99)
[2017-06-15 02:56] LABS: Glucose,Whole Blood 118 mg/dL (75-99)
[2017-06-15 04:00] LABS: Glucose,Whole Blood 101 mg/dL (75-99)
[2017-06-15 04:42] LABS: Anisocytosis Slight; Basophils % (A) 0 %; Eosinophils % (A) 0 %; HCT 24.6 % (34.0-46.0); HGB 7.2 gm/dL (11.4-16.0); Hypochromasia Marked; Lymphocytes # (A) 0.8 k/uL (1.0-4.8); Lymphocytes % (A) 8 %; MCH 27.2 pg (25.0-35.0); MCHC 29.2 g/dL (31.0-37.0); MCV 93.3 fL (80.0-100.0); Mean Platelet Volume 11.3; Monocytes # (A) 0.4 k/uL (0-1.0); Monocytes % (A) 4 %; Neutrophils % (A) 87 %; Platelet Count 154 k/uL (150-450); Poikilocytosis Slight; RBC 2.64 m/uL (3.80-5.40); WBC 10.3 k/uL (3.8-10.6)
[2017-06-15 04:58] LABS: Glucose,Whole Blood 110 mg/dL (75-99)
[2017-06-15 04:59] LABS: Albumin 2.4 g/dL (3.5-5.0); Calcium 8.4 mg/dL (8.4-10.2); Magnesium 2.9 mg/dL (1.6-2.3); Phosphorus 3.8 mg/dL (2.5-4.5); Potassium 4.1 mmol/L (3.5-5.1); Total Bilirubin 0.9 mg/dL (0.2-1.3); Total Protein 5.3 g/dL (6.3-8.2)
[2017-06-15 05:07] LABS: ABG Base Excess 3.5 mmol/L; ABG HCO3 27 mmol/L (21-25); ABG Oxygen Saturation 99.2 % (94-97); ABG PCO2 36 mmHg (35-45); ABG PH 7.49 (7.35-7.45); ABG PO2 97 mmHg (83-108); ABG TCO2 28 mmol/L (19-24)
[2017-06-15 05:53] LABS: Glucose,Whole Blood 115 mg/dL (75-99)
[2017-06-15 07:05] LABS: Glucose,Whole Blood 103 mg/dL (75-99)
[2017-06-15] MEDS: BUDESONIDE 1 MG/2 ML NEBU INHALATION SCH ×2 (07:33→19:55)
--- NOTE | 2017-06-15 07:49 | XR ---
EXAMINATION TYPE: XR chest 1V portable DATE OF EXAM: 06/15/2017 HISTORY: Shortness of breath. COMPARISON: 06/14/2017 TECHNIQUE: Single view of the chest is submitted. FINDINGS: Demonstrated are scattered senescent parenchymal change. Tracheostomy tube is in place. Left lower lobe atelectasis or infiltrate persists. Suspect small effusion. Improved aeration right l ower lobe. The heart is stable. Hilar and mediastinal structures are within normal limits. Degenerative changes are seen of the dorsal spine. IMPRESSION: 1. Left lower lobe atelectasis or infiltrate persists. Suspect small effusion. Improved aeration rig ht lower lobe.
[2017-06-15] MEDS: MEROPENEM 1 GM in SODIUM CHLORIDE 0.9% 100 ML IVPB SCH ×3 (07:56→23:55)
[2017-06-15] MEDS: PANTOPRAZOLE 40 MG/10 ML VIAL IVP SCH (07:56)
[2017-06-15] MEDS: FERROUS SULFATE ORAL ELIXIR 300 MG/5 ML CUP OG-TUBE SCH ×2 (07:56→18:08)
[2017-06-15] MEDS: METOPROLOL TARTRATE 50 MG TAB PO SCH ×2 (07:56→20:08)
[2017-06-15] MEDS: HEPARIN SODIUM,PORCINE 5,000 UNIT/ML 1 ML VIAL SQ SCH (07:56)
[2017-06-15] MEDS: AMIODARONE 200 MG TAB PO SCH ×2 (07:57→20:08)
[2017-06-15] MEDS: POTASSIUM BICARBONATE/CIT AC 20 MEQ TABLET.EFF PO SCH (07:57)
[2017-06-15] MEDS: ASCORBIC ACID 500 MG TAB PO SCH ×2 (07:57→20:08)
[2017-06-15] MEDS: DIGOXIN 125 MCG TAB OG-TUBE SCH (07:58)
[2017-06-15] MEDS: ATORVASTATIN 40 MG TAB PO SCH (07:58)
[2017-06-15] MEDS: CHLORHEXIDINE GLUCONATE 15 ML CUP MUCOUS MEM SCH ×2 (07:58→20:08)
[2017-06-15] MEDS: CLOPIDOGREL 75 MG TAB PO SCH (07:58)
[2017-06-15] MEDS: ASPIRIN 81 MG PO SCH (07:58)
[2017-06-15] MEDS: QUEtiapine 25 MG TAB PO SCH (07:59)
[2017-06-15 08:20] LABS: Glucose,Whole Blood 153 mg/dL (75-99)
--- NOTE | 2017-06-15 08:56 | P.PN ---
Subjective Progress Note Date: 06/15/17 Principal diagnosis: Status post four-vessel bypass grafting, respiratory failure Progress note dated 06/11/2017 This is a 66-year-old female with acute hypoxemic respiratory failure status post four-vessel bypass grafting, postop day #9. The patient had a history of acute cardiac arrest and was resuscitated successfully. She was intubated and placed on mechanical ventilator. She is postop day #9 status post four-vessel bypass grafting. Upper this point, the patient has not really had any major or significant weaning towards extubation. She does have a history of COPD with an FEV1 at 76% of predicted suggesting moderate disease. In addition, the patient has history of sleep apnea syndrome obesity CAD pneumonia hyperlipidemia hypertension right breast cancer with previous lumpectomy and lymph node dissection gastroesophageal reflux disease diabetes mellitus anemia and left lower lobe pneumonia secondary to Enterobacter cloacae. Currently, the chest x-ray shows either consolidation or effusion in the left lower lobe. The patient is on the ventilator with the assist control mode rate of 18 tidal volume of 500 FiO2 50% and PEEP of 5. Blood gases show a PaO2 of 69 a PaCO2 34 and pH 7.52. The patient is receiving saline IV at 70 mL an hour , propofol at 25 mics per kilogram per minute Primacor 0.125 mcg/kg/m insulin drip which is currently on hold and vital high protein tube feeds at 54 with a goal of 54 mL an hour. We will attempt a daily eruption of sedation on her and see whether or not she would tolerate a spontaneous breathing trial. I did make some vent changes dropping the volume down to 400 and increasing the rate to 28. Her spontaneous rate was about 28. She was admitted on May 28 and had her four- vessel bypass grafting on June 02. Her hospitalization was been uncomplicated by atrial fibrillation with rapid ventricular response. Progress note dated 06/12/2017 This is a 66-year-old female with acute hypoxemic respiratory failure status post four-vessel bypass grafting, postop day #10. The patient had a history of acute cardiac arrest and was resuscitated successfully. She was intubated and placed on mechanical ventilator. She is postop day #9 status post four-vessel bypass grafting. Upper this point, the patient has not really had any major or significant weaning towards extubation. She does have a history of COPD with an FEV1 at 76% of predicted suggesting moderate disease. In addition, the patient has history of sleep apnea syndrome obesity CAD pneumonia hyperlipidemia hypertension right breast cancer with previous lumpectomy and lymph node dissection gastroesophageal reflux disease diabetes mellitus anemia and left lower lobe pneumonia secondary to Enterobacter cloacae. Currently, the chest x-ray shows either consolidation or effusion in the left lower lobe. The patient is on the ventilator with the assist control mode rate of 28 tidal volume of 400 FiO2 50% and PEEP of 10. Blood gases show a PaO2 of 79 a PaCO2 36 and pH 7.47. The patient is receiving saline IV at 70 mL an hour , propofol at 25 mics per kilogram per minute Primacor 0.125 mcg/kg/m insulin drip which is currently on hold and vital high protein tube feeds at 54 with a goal of 54 mL an hour. We will attempt a daily interuption of sedation on her and see whether or not she would tolerate a spontaneous breathing trial. I did make some vent changes dropping the volume down to 400 and increasing the rate to 28. Her spontaneous rate was about 28. She was admitted on May 28 and had her four-vessel bypass grafting on June 02. Her hospitalization was been uncomplicated by atrial fibrillation with rapid ventricular response. The patient did spend about 1-1/2 hours on PSV 10 and CPAP of 5 yesterday. Unfortunately, the weaning trial was aborted because of high respiratory rate in atrial fibrillation with RVR. She is likely to be having a tracheostomy sometime this week. Again we will attempt PSV and CPAP sometime today. Prognosis on my opinion is not good for successful weaning and this patient. Progress note dated 06/13/2017 66-year-old female with a history of acute hypoxemic respiratory failure, status post four-vessel bypass grafting, postop day #11. The patient has a history of acute cardiac arrest and was resuscitated successfully. She was intubated and placed on mechanical ventilator. She is postop day 11 status post four-vessel bypass grafting. Up to this point, the patient has not really had any major significant weaning towards extubation. Will be due stop her sedation, she becomes very tachypneic and dyspneic. She also becomes very tachycardic with A. fib and RVR. She does have history of COPD with an FEV1 at 76% of predicted suggesting mild/moderate COPD. In addition, she suffers from sleep apnea syndrome obesity CAD pneumonia hyperlipidemia hypertension right breast cancer with previous lumpectomy and lymph node dissection GERD diabetes mellitus anemia left lower lobe pneumonia secondary to Enterobacter cloaca. Currently, chest x-ray continues to show a patchy infiltrate or effusion at the left lung base. There also may be some atelectasis at the left lung base. Currently she is on the assist control mode rate of 28 tidal volume 400 FiO2 50 % and PEEP of 10. With those settings, her PaO2 of 78 pCO2 was 37 and pH 7.49. She is currently on propofol at 30 mics per kilogram per minute insulin drip which is currently on hold lactated Ringer's IV at 20 mL an hour and vital high protein tube feeds at 54 mL per hour with a goal of 54 mL per hour. Today we will try a daily interuption of sedation on both pressure support and CPAP. She is apparently scheduled for a trach and PEG tomorrow by Dr. Lujan on June 14 Over the last 3 or 4 days and I been seeing her, the patient really has made no significant progress towards extubation. Progress note dated 06/15/2017 66-year-old female with history of acute hypoxemic respiratory failure, status post four-vessel bypass grafting, postoperative day #13. The patient has a history of acute cardiac arrest and was resuscitated successfully. She was intubated and placed on mechanical ventilator. She is postop day #13. She is status post four-vessel bypass grafting. She did have a trach and PEG performed on June 14. Up to this point, will be attempted weaning and extubation, she became very to Dyspneic and tachycardic. We also had problems with atrial fibrillation with RVR. The patient has a history of mild to moderate COPD with an FEV1 of 76% of predicted in addition, she suffers from sleep apnea syndrome obesity CAD pneumonia hyperlipidemia hypertension right breast cancer with previous lumpectomy and lymph node dissection GERD diabetes mellitus anemia left lower lobe pneumonia secondary to Enterobacter cloacae. Today we will try a spontaneous breathing trial. She's currently in no sedation. Her current vent settings include the assist control mode rate of 28 , tidal volume 400, FiO2 50% and a PEEP of 10 to be dropped down to 8. Arterial blood gases show a PaO2 of 97 a pCO2 of 36 and pH of 7.49. Her IVs include saline at 75 mL an hour propofol which is off insulin drip which is often tube feeds which are on hold until later today. Again the tracheostomy and PEG tube placement were done yesterday afternoon. Later today, we will drop the PEEP down from 8 to 5. Objective - Vital Signs Vital signs: Vital Signs Temp 98.8 F 06/15/17 08:00 Pulse 100 06/15/17 08:03 Resp 24 06/15/17 08:00 BP 105/66 06/14/17 14:00 Pulse Ox 99 06/15/17 08:00 Intake & Output 06/14/17 06/15/17 06/15/17 18:59 06:59 18:59 Intake Total 6603.381 9734.984 29.225 Output Total 967 760 45 Balance 655.675 536.984 -15.775 Weight 125.2 kg Intake: IV 816 1036 0.9 for pressure 36 36 LR 80 Meropenem 1 gm In Sodium 200 100 Chloride 0.9% 100 ml @ 200 mls/hr IVPB Q8HR [facility] Rx#:[id number] Sodium Chloride 0.45% 1, 900 000 ml @ 75 mls/hr IV . [id number] [facility] Rx#:[id number] Intake, IV Titration 686.675 260.984 29.225 Amount Insulin Regular 100 unit 61.675 37.959 0 In Sodium Chloride 0.9% 100 ml @ Per Protocol IV .Q0M [facility] Rx#:[id number] Propofol 1,000 mg In 100 223.025 29.225 Empty Bag 1 bag @ Titrate IV .Q0M [facility] Rx#: [id number] Sodium Chloride 0.45% 1, 525 000 ml @ 75 mls/hr IV . [id number] [facility] Rx#:[id number] Tube Feeding 0 0 Other 120 Output: Drainage 200 115 45 Right Lower Medial Calf 200 115 45 Urine 765 645 Estimated Blood Loss 2 Other: Voiding Method Indwelling Catheter Indwelling Catheter # Voids 50 # Bowel Movements 0 ABP, PAP, CO, CI - Last Documented Arterial Blood Pressure 136/71 Pulmonary Artery Pressure 33/21 Cardiac Output 5 Cardiac Index 2.4 - Exam No acute distress, the patient is currently not on any sedation, has a fresh tracheostomy tube, and a PEG tube. HEENT examination is grossly unremarkable. Mucous membranes are moist. Neck supple. Full range of motion. No adenopathy. Cardiovascular examination reveals a regular rhythm rate. Heart rate about 85 bpm. Lungs reveal some diffuse rhonchi. Breath sounds are diminished. No wheezes. Abdomen soft bowel sounds are heard. Extremities are intact. No cyanosis clubbing or edema. Skin without rash. Neurologic examination is difficult to assess. - Labs CBC & Chem 7: 06/15/17 04:28 06/15/17 04:28 Labs: Abnormal Lab Results - Last 24 Hours (Table) 06/14/17 06/14/17 06/14/17 Range/Units 10:36 11:36 12:59 RBC (3.80-5.40) m/uL Hgb (11.4-16.0) gm/dL Hct (34.0-46.0) % MCHC (31.0-37.0) g/dL RDW (11.5-15.5) % Neutrophils # (1.3-7.7) k/uL Lymphocytes # (1.0-4.8) k/uL ABG pH (7.35-7.45) ABG HCO3 (21-25) mmol/L ABG Total CO2 (19-24) mmol/L ABG O2 Saturation (94-97) % Sodium (137-145) mmol/L Chloride (98-107) mmol/L BUN (7-17) mg/dL Glucose (74-99) mg/dL POC Glucose (mg/dL) 101 H 136 H 124 H (75-99) mg/dL Magnesium (1.6-2.3) mg/dL Total Protein (6.3-8.2) g/dL Albumin (3.5-5.0) g/dL 06/14/17 06/14/17 06/14/17 Range/Units 16:30 17:49 19:46 RBC (3.80-5.40) m/uL Hgb (11.4-16.0) gm/dL Hct (34.0-46.0) % MCHC (31.0-37.0) g/dL RDW (11.5-15.5) % Neutrophils # (1.3-7.7) k/uL Lymphocytes # (1.0-4.8) k/uL ABG pH (7.35-7.45) ABG HCO3 (21-25) mmol/L ABG Total CO2 (19-24) mmol/L ABG O2 Saturation (94-97) % Sodium (137-145) mmol/L Chloride (98-107) mmol/L BUN (7-17) mg/dL Glucose (74-99) mg/dL POC Glucose (mg/dL) 135 H 118 H 104 H (75-99) mg/dL Magnesium (1.6-2.3) mg/dL Total Protein (6.3-8.2) g/dL Albumin (3.5-5.0) g/dL 06/14/17 06/14/17 06/14/17 Range/Units 22:17 23:04 23:44 RBC (3.80-5.40) m/uL Hgb (11.4-16.0) gm/dL Hct (34.0-46.0) % MCHC (31.0-37.0) g/dL RDW (11.5-15.5) % Neutrophils # (1.3-7.7) k/uL Lymphocytes # (1.0-4.8) k/uL ABG pH (7.35-7.45) ABG HCO3 (21-25) mmol/L ABG Total CO2 (19-24) mmol/L ABG O2 Saturation (94-97) % Sodium (137-145) mmol/L Chloride (98-107) mmol/L BUN (7-17) mg/dL Glucose (74-99) mg/dL POC Glucose (mg/dL) 109 H 124 H 122 H (75-99) mg/dL Magnesium (1.6-2.3) mg/dL Total Protein (6.3-8.2) g/dL Albumin (3.5-5.0) g/dL 06/15/17 06/15/17 06/15/17 Range/Units 01:00 02:06 02:54 RBC (3.80-5.40) m/uL Hgb (11.4-16.0) gm/dL Hct (34.0-46.0) % MCHC (31.0-37.0) g/dL RDW (11.5-15.5) % Neutrophils # (1.3-7.7) k/uL Lymphocytes # (1.0-4.8) k/uL ABG pH (7.35-7.45) ABG HCO3 (21-25) mmol/L ABG Total CO2 (19-24) mmol/L ABG O2 Saturation (94-97) % Sodium (137-145) mmol/L Chloride (98-107) mmol/L BUN (7-17) mg/dL Glucose (74-99) mg/dL POC Glucose (mg/dL) 108 H 124 H 118 H (75-99) mg/dL Magnesium (1.6-2.3) mg/dL Total Protein (6.3-8.2) g/dL Albumin (3.5-5.0) g/dL 06/15/17 06/15/17 06/15/17 Range/Units 03:58 04:28 04:28 RBC 2.64 L (3.80-5.40) m/uL Hgb 7.2 L (11.4-16.0) gm/dL Hct 24.6 L (34.0-46.0) % MCHC 29.2 L (31.0-37.0) g/dL RDW 18.0 H (11.5-15.5) % Neutrophils # 9.0 H (1.3-7.7) k/uL Lymphocytes # 0.8 L (1.0-4.8) k/uL ABG pH (7.35-7.45) ABG HCO3 (21-25) mmol/L ABG Total CO2 (19-24) mmol/L ABG O2 Saturation (94-97) % Sodium 150 H (137-145) mmol/L Chloride 113 H (98-107) mmol/L BUN 51 H (7-17) mg/dL Glucose 102 H (74-99) mg/dL POC Glucose (mg/dL) 101 H (75-99) mg/dL Magnesium 2.9 H (1.6-2.3) mg/dL Total Protein 5.3 L (6.3-8.2) g/dL Albumin 2.4 L (3.5-5.0) g/dL 06/15/17 06/15/17 06/15/17 Range/Units 04:56 05:02 05:50 RBC (3.80-5.40) m/uL Hgb (11.4-16.0) gm/dL Hct (34.0-46.0) % MCHC (31.0-37.0) g/dL RDW (11.5-15.5) % Neutrophils # (1.3-7.7) k/uL Lymphocytes # (1.0-4.8) k/uL ABG pH 7.49 H (7.35-7.45) ABG HCO3 27 H (21-25) mmol/L ABG Total CO2 28 H (19-24) mmol/L ABG O2 Saturation 99.2 H (94-97) % Sodium (137-145) mmol/L Chloride (98-107) mmol/L BUN (7-17) mg/dL Glucose (74-99) mg/dL POC Glucose (mg/dL) 110 H 115 H (75-99) mg/dL Magnesium (1.6-2.3) mg/dL Total Protein (6.3-8.2) g/dL Albumin (3.5-5.0) g/dL 06/15/17 06/15/17 Range/Units 06:54 08:19 RBC (3.80-5.40) m/uL Hgb (11.4-16.0) gm/dL Hct (34.0-46.0) % MCHC (31.0-37.0) g/dL RDW (11.5-15.5) % Neutrophils # (1.3-7.7) k/uL Lymphocytes # (1.0-4.8) k/uL ABG pH (7.35-7.45) ABG HCO3 (21-25) mmol/L ABG Total CO2 (19-24) mmol/L ABG O2 Saturation (94-97) % Sodium (137-145) mmol/L Chloride (98-107) mmol/L BUN (7-17) mg/dL Glucose (74-99) mg/dL POC Glucose (mg/dL) 103 H 153 H (75-99) mg/dL Magnesium (1.6-2.3) mg/dL Total Protein (6.3-8.2) g/dL Albumin (3.5-5.0) g/dL Microbiology - Last 24 Hours (Table) 06/12/17 14:53 Blood Culture - Preliminary Blood No Growth after 48 hours 06/12/17 17:25 Gram Stain - Preliminary Sputum Sputum Culture - Preliminary Gram Neg Bacilli Assessment and Plan Assessment: Assessment Hypoxemic respiratory failure status post acute cardiopulmonary arrest requiring intubation and mechanical ventilation and successful resuscitation, now, with failure to wean. Ischemia induced ventricular fibrillation Severe multivessel coronary disease, status post four-vessel bypass grafting, postoperative day #13 Status post tracheostomy and PEG tube placement, postoperative day #1 Mild/moderate COPD Sleep apnea syndrome, severe Obesity Coronary disease, with previous stenting Recent hospitalization at [facility] for right lower lobe pneumonia History of right breast cancer with lumpectomy and lymph node dissection GERD Diabetes mellitus Anemia Enterobacter cloacae left lower lobe pneumonia Plan: Plan dated 06/11/2017 The patient will have a weaning trial. The patient has a significant respiratory and metabolic alkalosis which will be a hindrance towards weaning. We'll change tidal volume from 500 down to 400. We'll increase the rate from 18 to 28. We'll try to deal with alkalosis. Additional recommendations and suggestions are forthcoming. Prognosis is guarded. If the patient is stable, we'll do a spontaneous breathing trial. Meds labs x-rays are all reviewed. Chest x-ray shows either consolidation or left-sided pleural effusion. Critical care time is 36 minutes Plan dated 06/12/2017 The patient had a very brief weaning trial yesterday. Unfortunately, atrial fibrillation with rapid ventricular response and a high respiratory rate up into the 40s prevented a longer weaning trial. I suspect that the patient will need a tracheostomy. I think is being planned for sometime this week. She really hasn't done very well. Off of all sedation, her mental status is poor. Her chest x-rays recently stable with a consolidation small effusion in the left base. Her medications labs and x-rays are all reviewed. She continues to be a full code. Prognosis is guarded. Additional recommendations and suggestions are forthcoming. Plan dated 06/13/2017 The patient is going to have a daily interuption of sedation and a weaning trial. I do not suspect that she will do well. Nonetheless, she is scheduled for a tracheostomy and possible PEG tube placement tomorrow. [facility] if she cannot be weaned. Currently, she is on propofol at 30 mics per kilogram per minute insulin drip is on hold lactated Ringer's IV at 20 mL an hour and vital high protein tube feeds. Blood gases are reasonable. Additional recommendations and suggestions are forthcoming. Critical care time is 34 minutes. Plan dated 06/15/2017 The patient did have a PEG tube placement and tracheostomy tube placement yesterday. They're postop day #1. 2 feedings be started later today. Vent settings are appropriate. The patient is off of sedation. We'll attempt a spontaneous breathing trial today. Chest x-ray still shows a dense consolidation in the left lower lobe which probably represents atelectasis/ pneumonia/fluid. The right lung is clear. Additional recommendations injections are forthcoming. We'll continue to follow. Prognosis is guarded. Critical care time 35 minutes. Time with Patient: Greater than 30
--- NOTE | 2017-06-15 11:24 | P.PN ---
Subjective Progress Note Date: 06/15/17 Principal diagnosis: Malnutrition Patient more alert on the ventilator. Denies pain when asked by shaking her head no. Tube feeds have not been started yet. Objective - Vital Signs Vital signs: Vital Signs Temp 98.8 F 06/15/17 08:00 Pulse 90 06/15/17 11:21 Resp 22 06/15/17 09:00 BP 105/66 06/14/17 14:00 Pulse Ox 100 06/15/17 09:00 Intake & Output 06/14/17 06/15/17 06/15/17 18:59 06:59 18:59 Intake Total 3711.544 7188.984 285.225 Output Total 967 760 235 Balance 655.675 536.984 50.225 Weight 125.2 kg 125.2 kg Intake: IV 816 1036 256 0.9 for pressure 36 36 6 LR 80 Meropenem 1 gm In Sodium 200 100 100 Chloride 0.9% 100 ml @ 200 mls/hr IVPB Q8HR [facility] Rx#:[id number] Sodium Chloride 0.45% 1, 900 150 000 ml @ 75 mls/hr IV . [id number] [facility] Rx#:[id number] Intake, IV Titration 686.675 260.984 29.225 Amount Insulin Regular 100 unit 61.675 37.959 0 In Sodium Chloride 0.9% 100 ml @ Per Protocol IV .Q0M [facility] Rx#:[id number] Propofol 1,000 mg In 100 223.025 29.225 Empty Bag 1 bag @ Titrate IV .Q0M [facility] Rx#: [id number] Sodium Chloride 0.45% 1, 525 000 ml @ 75 mls/hr IV . [id number] [facility] Rx#:[id number] Tube Feeding 0 0 Other 120 Output: Drainage 200 115 65 Right Lower Medial Calf 200 115 65 Urine 765 645 170 Estimated Blood Loss 2 Other: Voiding Method Indwelling Catheter Indwelling Catheter Indwelling Catheter # Voids 50 # Bowel Movements 0 ABP, PAP, CO, CI - Last Documented Arterial Blood Pressure 110/55 Pulmonary Artery Pressure 33/21 Cardiac Output 5 Cardiac Index 2.4 - Exam Abdomen: Soft, mild distention, PEG tube intact with minimal tenderness - Labs CBC & Chem 7: 06/15/17 04:28 06/15/17 04:28 Labs: Abnormal Lab Results - Last 24 Hours (Table) 06/14/17 06/14/17 06/14/17 Range/Units 11:36 12:59 16:30 RBC (3.80-5.40) m/uL Hgb (11.4-16.0) gm/dL Hct (34.0-46.0) % MCHC (31.0-37.0) g/dL RDW (11.5-15.5) % Neutrophils # (1.3-7.7) k/uL Lymphocytes # (1.0-4.8) k/uL ABG pH (7.35-7.45) ABG HCO3 (21-25) mmol/L ABG Total CO2 (19-24) mmol/L ABG O2 Saturation (94-97) % Sodium (137-145) mmol/L Chloride (98-107) mmol/L BUN (7-17) mg/dL Glucose (74-99) mg/dL POC Glucose (mg/dL) 136 H 124 H 135 H (75-99) mg/dL Magnesium (1.6-2.3) mg/dL Total Protein (6.3-8.2) g/dL Albumin (3.5-5.0) g/dL 06/14/17 06/14/17 06/14/17 Range/Units 17:49 19:46 22:17 RBC (3.80-5.40) m/uL Hgb (11.4-16.0) gm/dL Hct (34.0-46.0) % MCHC (31.0-37.0) g/dL RDW (11.5-15.5) % Neutrophils # (1.3-7.7) k/uL Lymphocytes # (1.0-4.8) k/uL ABG pH (7.35-7.45) ABG HCO3 (21-25) mmol/L ABG Total CO2 (19-24) mmol/L ABG O2 Saturation (94-97) % Sodium (137-145) mmol/L Chloride (98-107) mmol/L BUN (7-17) mg/dL Glucose (74-99) mg/dL POC Glucose (mg/dL) 118 H 104 H 109 H (75-99) mg/dL Magnesium (1.6-2.3) mg/dL Total Protein (6.3-8.2) g/dL Albumin (3.5-5.0) g/dL 06/14/17 06/14/17 06/15/17 Range/Units 23:04 23:44 01:00 RBC (3.80-5.40) m/uL Hgb (11.4-16.0) gm/dL Hct (34.0-46.0) % MCHC (31.0-37.0) g/dL RDW (11.5-15.5) % Neutrophils # (1.3-7.7) k/uL Lymphocytes # (1.0-4.8) k/uL ABG pH (7.35-7.45) ABG HCO3 (21-25) mmol/L ABG Total CO2 (19-24) mmol/L ABG O2 Saturation (94-97) % Sodium (137-145) mmol/L Chloride (98-107) mmol/L BUN (7-17) mg/dL Glucose (74-99) mg/dL POC Glucose (mg/dL) 124 H 122 H 108 H (75-99) mg/dL Magnesium (1.6-2.3) mg/dL Total Protein (6.3-8.2) g/dL Albumin (3.5-5.0) g/dL 06/15/17 06/15/17 06/15/17 Range/Units 02:06 02:54 03:58 RBC (3.80-5.40) m/uL Hgb (11.4-16.0) gm/dL Hct (34.0-46.0) % MCHC (31.0-37.0) g/dL RDW (11.5-15.5) % Neutrophils # (1.3-7.7) k/uL Lymphocytes # (1.0-4.8) k/uL ABG pH (7.35-7.45) ABG HCO3 (21-25) mmol/L ABG Total CO2 (19-24) mmol/L ABG O2 Saturation (94-97) % Sodium (137-145) mmol/L Chloride (98-107) mmol/L BUN (7-17) mg/dL Glucose (74-99) mg/dL POC Glucose (mg/dL) 124 H 118 H 101 H (75-99) mg/dL Magnesium (1.6-2.3) mg/dL Total Protein (6.3-8.2) g/dL Albumin (3.5-5.0) g/dL 06/15/17 06/15/17 06/15/17 Range/Units 04:28 04:28 04:56 RBC 2.64 L (3.80-5.40) m/uL Hgb 7.2 L (11.4-16.0) gm/dL Hct 24.6 L (34.0-46.0) % MCHC 29.2 L (31.0-37.0) g/dL RDW 18.0 H (11.5-15.5) % Neutrophils # 9.0 H (1.3-7.7) k/uL Lymphocytes # 0.8 L (1.0-4.8) k/uL ABG pH (7.35-7.45) ABG HCO3 (21-25) mmol/L ABG Total CO2 (19-24) mmol/L ABG O2 Saturation (94-97) % Sodium 150 H (137-145) mmol/L Chloride 113 H (98-107) mmol/L BUN 51 H (7-17) mg/dL Glucose 102 H (74-99) mg/dL POC Glucose (mg/dL) 110 H (75-99) mg/dL Magnesium 2.9 H (1.6-2.3) mg/dL Total Protein 5.3 L (6.3-8.2) g/dL Albumin 2.4 L (3.5-5.0) g/dL 06/15/17 06/15/17 06/15/17 Range/Units 05:02 05:50 06:54 RBC (3.80-5.40) m/uL Hgb (11.4-16.0) gm/dL Hct (34.0-46.0) % MCHC (31.0-37.0) g/dL RDW (11.5-15.5) % Neutrophils # (1.3-7.7) k/uL Lymphocytes # (1.0-4.8) k/uL ABG pH 7.49 H (7.35-7.45) ABG HCO3 27 H (21-25) mmol/L ABG Total CO2 28 H (19-24) mmol/L ABG O2 Saturation 99.2 H (94-97) % Sodium (137-145) mmol/L Chloride (98-107) mmol/L BUN (7-17) mg/dL Glucose (74-99) mg/dL POC Glucose (mg/dL) 115 H 103 H (75-99) mg/dL Magnesium (1.6-2.3) mg/dL Total Protein (6.3-8.2) g/dL Albumin (3.5-5.0) g/dL 06/15/17 Range/Units 08:19 RBC (3.80-5.40) m/uL Hgb (11.4-16.0) gm/dL Hct (34.0-46.0) % MCHC (31.0-37.0) g/dL RDW (11.5-15.5) % Neutrophils # (1.3-7.7) k/uL Lymphocytes # (1.0-4.8) k/uL ABG pH (7.35-7.45) ABG HCO3 (21-25) mmol/L ABG Total CO2 (19-24) mmol/L ABG O2 Saturation (94-97) % Sodium (137-145) mmol/L Chloride (98-107) mmol/L BUN (7-17) mg/dL Glucose (74-99) mg/dL POC Glucose (mg/dL) 153 H (75-99) mg/dL Magnesium (1.6-2.3) mg/dL Total Protein (6.3-8.2) g/dL Albumin (3.5-5.0) g/dL Microbiology - Last 24 Hours (Table) 06/12/17 17:25 Gram Stain - Final Sputum Sputum Culture - Final Enterobacter cloacae 06/12/17 14:53 Blood Culture - Preliminary Blood No Growth after 48 hours Assessment and Plan (1) Malnutrition Narrative/Plan: Begin tube feeds today. We'll follow. Current Visit: Yes Status: Acute Code(s): E46 - UNSPECIFIED PROTEIN-CALORIE MALNUTRITION SNOMED Code(s): 71051431
[2017-06-15 11:56] LABS: Glucose,Whole Blood 135 mg/dL (75-99)
--- NOTE | 2017-06-15 12:56 | PN ---
PROGRESS NOTE A 66-year-old lady who is admitted to ICU with coronary artery disease following bypass surgery. She is postop day #13, had tracheostomy, remains in atrial fibrillation with a somewhat better controlled ventricular rate. At the time of my evaluation, she is alert, but is not responding normally. On exam, heart rate is varying between 90 to 104, blood pressure is 110/55. Chest exam reveals diminished air entry at the bases. Heart exam reveals first and second heart sounds, irregular rhythm. No murmur. Abdomen is soft. Exam of the extremities did not reveal any edema. Peripheral pulses are palpable. LABS: Show potassium of 4.1, creatinine is 0.9. BUN is 50. An echocardiogram on her on this admission revealed normal LV systolic function. ASSESSMENT: 1. Coronary artery disease, status post coronary artery bypass grafting. 2. Respiratory failure, status post tracheostomy. 3. Postop atrial fibrillation. PLAN: Patient will continue with current medications including Lipitor, aspirin, Plavix, Lopressor 100 b.i.d. and continue the amiodarone that she is on for now. MMODL / IJN: [id number] /
--- NOTE | 2017-06-15 13:34 | P.PN ---
Subjective Progress Note Date: 06/15/17 Principal diagnosis: Multivessel coronary artery disease, status post ventricular fibrillation arrest , history of hypertension, hyperlipidemia, insulin dependent diabetes mellitus with preoperative hemoglobin A1c 9.4%, non-ST elevation myocardial infarction this admission and history of previous myocardial infarction with stent placement to the RCA in 2010, preserved left ventricular function with preoperative ejection fraction of 50-55%, mild mitral valve regurgitation, obesity, obstructive sleep apnea, recent pneumonia in March 2017, previous tobacco dependence, right breast cancer with lumpectomy and radiation, chronic obstructive pulmonary disease with preoperative FEV1 of 76% of predicted and preoperative arterial blood gas pH 7.46, pCO2 40, pO2 68, HCO3 28, GERD and family history of premature coronary artery disease. POD #13 coronary artery bypass grafting 4 using the left internal mammary artery to the left anterior descending coronary artery, a reverse greater saphenous vein graft from the aorta to the distal posterior descending coronary artery, a reverse greater saphenous vein graft from the aorta to the ramus intermedius coronary artery, a reverse greater saphenous vein graft from the aorta to the second diagonal coronary artery. Endoscopic harvesting of the right greater saphenous vein. Intraoperative transesophageal echocardiogram and epi-aortic scanning. Intraoperative graft flow measurement using the [employer] system. Status post preoperative acute cardiac arrest with ventricular fibrillation arrest with successful resuscitation. Postoperative prolonged mechanical ventilation secondary to hemodynamic instability and acute hypoxic respiratory failure, an unexpected but potential outcome of surgery. Postoperative atrial fibrillation, an unexpected but potential outcome of surgery. POD #9 bronchoscopy per pulmonology, bronchial washings positive for Enterobacter cloacae. Postoperative acute blood loss anemia, a potential outcome of surgery. The patient is currently lying in bed in the intensive care unit. She is in no acute distress. She is currently hemodynamically stable. She remains intubated with mechanical ventilator support. Her sedation is currently on hold , she is not following any verbal commands at this time. Objective - Vital Signs Vital signs: Vital Signs Temp 98.1 F 06/15/17 12:00 Pulse 95 06/15/17 13:00 Resp 23 06/15/17 13:00 BP 105/66 06/14/17 14:00 Pulse Ox 99 06/15/17 13:00 Intake & Output 06/14/17 06/15/17 06/15/17 18:59 06:59 18:59 Intake Total 4581.438 6632.984 597.225 Output Total 967 760 745 Balance 655.675 536.984 -147.775 Weight 125.2 kg 125.2 kg Intake: IV 816 1036 568 0.9 for pressure 36 36 18 LR 80 Meropenem 1 gm In Sodium 200 100 100 Chloride 0.9% 100 ml @ 200 mls/hr IVPB Q8HR [facility] Rx#:[id number] Sodium Chloride 0.45% 1, 900 450 000 ml @ 75 mls/hr IV . [id number] [facility] Rx#:[id number] Intake, IV Titration 686.675 260.984 29.225 Amount Insulin Regular 100 unit 61.675 37.959 0 In Sodium Chloride 0.9% 100 ml @ Per Protocol IV .Q0M [facility] Rx#:[id number] Propofol 1,000 mg In 100 223.025 29.225 Empty Bag 1 bag @ Titrate IV .Q0M [facility] Rx#: [id number] Sodium Chloride 0.45% 1, 525 000 ml @ 75 mls/hr IV . [id number] [facility] Rx#:[id number] Tube Feeding 0 0 Other 120 Output: Drainage 200 115 155 Right Lower Medial Calf 200 115 155 Urine 765 645 590 Estimated Blood Loss 2 Other: Voiding Method Indwelling Catheter Indwelling Catheter Indwelling Catheter # Voids 50 # Bowel Movements 0 ABP, PAP, CO, CI - Last Documented Arterial Blood Pressure 112/66 Pulmonary Artery Pressure 33/21 Cardiac Output 5 Cardiac Index 2.4 - Constitutional General appearance: Present: no acute distress, obese - Neck Details: No JVD, neck is supple. - Respiratory Details: Lung sounds are essentially diminished throughout. Respirations are symmetrical and unlabored with mechanical ventilator support. Current ventilator settings are as follows: Assist control 28, TV 400, FiO2 50%, PEEP of 10. Current oxygen saturation saturations are 98%. ABG results this morning 7.49/36/97/27/3.5/99% on 50% FiO2. - Cardiovascular Details: Irregular rhythm with a tachycardic rate. S1 and S2 present, negative for S3, gallop or murmur. Sternum is stable. Bedside telemetry showing atrial fibrillation/atrial flutter heart rate 109. Generalized edema +1. Knee-high DIVINE hose and sequential compression basis and placed to her bilateral lower extremity Osbaldo. Left brachial PICC line in place and functioning. Left radial A -line in place and functioning. - Gastrointestinal Gastrointestinal Comment(s): Abdomen is soft, nontender nondistended. Active bowel sounds all 4 valve quadrants. PEG tube in place. Tube feedings will be restarted after 24 hours of PEG tube placement. - Genitourinary Genitourinary Comment(s): Lea catheter for accurate I&O. Clear nithin urine with some sediment. Adequate urine output, 500 mL output in the last 8 hours. - Neurologic Neurologic Comment(s): Patient is nodding her head yes and no appropriately to yes and no questions. Sedation continues to be on hold. Not moving any of her extremities with verbal command at this time. - Musculoskeletal Musculoskeletal: Present: generalized weakness - Allied health notes Allied health notes reviewed: nursing - Labs CBC & Chem 7: 06/15/17 04:28 06/15/17 04:28 Labs: Abnormal Lab Results - Last 24 Hours (Table) 06/14/17 06/14/17 06/14/17 Range/Units 16:30 17:49 19:46 RBC (3.80-5.40) m/uL Hgb (11.4-16.0) gm/dL Hct (34.0-46.0) % MCHC (31.0-37.0) g/dL RDW (11.5-15.5) % Neutrophils # (1.3-7.7) k/uL Lymphocytes # (1.0-4.8) k/uL ABG pH (7.35-7.45) ABG HCO3 (21-25) mmol/L ABG Total CO2 (19-24) mmol/L ABG O2 Saturation (94-97) % Sodium (137-145) mmol/L Chloride (98-107) mmol/L BUN (7-17) mg/dL Glucose (74-99) mg/dL POC Glucose (mg/dL) 135 H 118 H 104 H (75-99) mg/dL Magnesium (1.6-2.3) mg/dL Total Protein (6.3-8.2) g/dL Albumin (3.5-5.0) g/dL 06/14/17 06/14/17 06/14/17 Range/Units 22:17 23:04 23:44 RBC (3.80-5.40) m/uL Hgb (11.4-16.0) gm/dL Hct (34.0-46.0) % MCHC (31.0-37.0) g/dL RDW (11.5-15.5) % Neutrophils # (1.3-7.7) k/uL Lymphocytes # (1.0-4.8) k/uL ABG pH (7.35-7.45) ABG HCO3 (21-25) mmol/L ABG Total CO2 (19-24) mmol/L ABG O2 Saturation (94-97) % Sodium (137-145) mmol/L Chloride (98-107) mmol/L BUN (7-17) mg/dL Glucose (74-99) mg/dL POC Glucose (mg/dL) 109 H 124 H 122 H (75-99) mg/dL Magnesium (1.6-2.3) mg/dL Total Protein (6.3-8.2) g/dL Albumin (3.5-5.0) g/dL 06/15/17 06/15/17 06/15/17 Range/Units 01:00 02:06 02:54 RBC (3.80-5.40) m/uL Hgb (11.4-16.0) gm/dL Hct (34.0-46.0) % MCHC (31.0-37.0) g/dL RDW (11.5-15.5) % Neutrophils # (1.3-7.7) k/uL Lymphocytes # (1.0-4.8) k/uL ABG pH (7.35-7.45) ABG HCO3 (21-25) mmol/L ABG Total CO2 (19-24) mmol/L ABG O2 Saturation (94-97) % Sodium (137-145) mmol/L Chloride (98-107) mmol/L BUN (7-17) mg/dL Glucose (74-99) mg/dL POC Glucose (mg/dL) 108 H 124 H 118 H (75-99) mg/dL Magnesium (1.6-2.3) mg/dL Total Protein (6.3-8.2) g/dL Albumin (3.5-5.0) g/dL 06/15/17 06/15/17 06/15/17 Range/Units 03:58 04:28 04:28 RBC 2.64 L (3.80-5.40) m/uL Hgb 7.2 L (11.4-16.0) gm/dL Hct 24.6 L (34.0-46.0) % MCHC 29.2 L (31.0-37.0) g/dL RDW 18.0 H (11.5-15.5) % Neutrophils # 9.0 H (1.3-7.7) k/uL Lymphocytes # 0.8 L (1.0-4.8) k/uL ABG pH (7.35-7.45) ABG HCO3 (21-25) mmol/L ABG Total CO2 (19-24) mmol/L ABG O2 Saturation (94-97) % Sodium 150 H (137-145) mmol/L Chloride 113 H (98-107) mmol/L BUN 51 H (7-17) mg/dL Glucose 102 H (74-99) mg/dL POC Glucose (mg/dL) 101 H (75-99) mg/dL Magnesium 2.9 H (1.6-2.3) mg/dL Total Protein 5.3 L (6.3-8.2) g/dL Albumin 2.4 L (3.5-5.0) g/dL 06/15/17 06/15/17 06/15/17 Range/Units 04:56 05:02 05:50 RBC (3.80-5.40) m/uL Hgb (11.4-16.0) gm/dL Hct (34.0-46.0) % MCHC (31.0-37.0) g/dL RDW (11.5-15.5) % Neutrophils # (1.3-7.7) k/uL Lymphocytes # (1.0-4.8) k/uL ABG pH 7.49 H (7.35-7.45) ABG HCO3 27 H (21-25) mmol/L ABG Total CO2 28 H (19-24) mmol/L ABG O2 Saturation 99.2 H (94-97) % Sodium (137-145) mmol/L Chloride (98-107) mmol/L BUN (7-17) mg/dL Glucose (74-99) mg/dL POC Glucose (mg/dL) 110 H 115 H (75-99) mg/dL Magnesium (1.6-2.3) mg/dL Total Protein (6.3-8.2) g/dL Albumin (3.5-5.0) g/dL 06/15/17 06/15/17 06/15/17 Range/Units 06:54 08:19 11:55 RBC (3.80-5.40) m/uL Hgb (11.4-16.0) gm/dL Hct (34.0-46.0) % MCHC (31.0-37.0) g/dL RDW (11.5-15.5) % Neutrophils # (1.3-7.7) k/uL Lymphocytes # (1.0-4.8) k/uL ABG pH (7.35-7.45) ABG HCO3 (21-25) mmol/L ABG Total CO2 (19-24) mmol/L ABG O2 Saturation (94-97) % Sodium (137-145) mmol/L Chloride (98-107) mmol/L BUN (7-17) mg/dL Glucose (74-99) mg/dL POC Glucose (mg/dL) 103 H 153 H 135 H (75-99) mg/dL Magnesium (1.6-2.3) mg/dL Total Protein (6.3-8.2) g/dL Albumin (3.5-5.0) g/dL Microbiology - Last 24 Hours (Table) 06/12/17 17:25 Gram Stain - Final Sputum Sputum Culture - Final Enterobacter cloacae 06/12/17 14:53 Blood Culture - Preliminary Blood No Growth after 48 hours - Imaging and Cardiology Chest x-ray: report reviewed, image reviewed Assessment and Plan (1) History of right breast cancer Current Visit: Yes Status: Acute Code(s): Z85.3 - PERSONAL HISTORY OF MALIGNANT NEOPLASM OF BREAST SNOMED Code(s): 067130778 (2) Non-STEMI (non-ST elevated myocardial infarction) Current Visit: Yes Status: Acute Code(s): I21.4 - NON-ST ELEVATION (NSTEMI) MYOCARDIAL INFARCTION SNOMED Code(s): 660401211 (3) Diabetes mellitus Current Visit: Yes Status: Chronic Code(s): E11.9 - TYPE 2 DIABETES MELLITUS WITHOUT COMPLICATIONS SNOMED Code(s): 14916807 (4) Family history of premature coronary artery disease Current Visit: Yes Status: Chronic Code(s): Z82.49 - FAMILY HX OF ISCHEM HEART DIS AND OTH DIS OF THE CIRC SYS SNOMED Code(s): 432365797 (5) History of heart artery stent Current Visit: Yes Status: Chronic Code(s): Z95.5 - PRESENCE OF CORONARY ANGIOPLASTY IMPLANT AND GRAFT SNOMED Code(s): 364478130 (6) Hyperlipidemia Current Visit: Yes Status: Chronic Code(s): E78.5 - HYPERLIPIDEMIA, UNSPECIFIED SNOMED Code(s): 92315148 (7) Hypertension Current Visit: Yes Status: Chronic Code(s): I10 - ESSENTIAL (PRIMARY) HYPERTENSION SNOMED Code(s): 54555240 (8) Morbid obesity with BMI of 40.0-44.9, adult Current Visit: Yes Status: Chronic Code(s): E66.01 - MORBID (SEVERE) OBESITY DUE TO EXCESS CALORIES; Z68.41 - BODY MASS INDEX (BMI) 40.0-44.9, ADULT SNOMED Code(s): 025621464 (9) History of sudden cardiac arrest successfully resuscitated Current Visit: Yes Status: Acute Code(s): Z86.74 - PERSONAL HISTORY OF SUDDEN CARDIAC ARREST SNOMED Code(s): 229632622 Plan: 1. Continue aspirin, statin, metoprolol, and digoxin. We will increase the metoprolol tartrate as tolerated. 2. We will start Eliquis 5 mg per PEG tube twice a day. 3. Continue amiodarone 200 mg by mouth twice a day for atrial fibrillation prophylaxis. 4. We will decrease her aspirin to 81 mg per PEG tube daily, and discontinue her Plavix and heparin. 5. Mechanical ventilator management and recommendations per pulmonary medicine. 6. Medical management and insulin management per primary care service. 7. DVT and GI prophylaxis. Knee-high DIVINE hose and sequential compression devices in place. 8. Lea catheter for strict I&O's.. 9. Restart tube feedings per dietitian's recommendations after 24 hours has completed of PEG tube placement. 10. Monitor daily labs and chest x-rays. 11. More recommendations to follow as the patient progresses in her care. Time with Patient: Greater than 30
[2017-06-15 13:58] LABS: Glucose,Whole Blood 113 mg/dL (75-99)
[2017-06-15 16:10] LABS: Glucose,Whole Blood 103 mg/dL (75-99)
[2017-06-15 16:52] LABS: Glucose,Whole Blood 119 mg/dL (75-99)
[2017-06-15 18:08] LABS: Glucose,Whole Blood 147 mg/dL (75-99)
--- NOTE | 2017-06-15 18:14 | PN ---
PROGRESS NOTE DATE OF SERVICE: 06/15/17. PRESENTING COMPLAINT: Intubated. INTERVAL HISTORY: The patient known coronary artery disease, presented with acute IA and subsequently had a cardiac arrest with VFib on the floor and ended up having a 4 vessel coronary bypass. Patient remains on the ventilator, not able to wean. The patient did have a PEG tube placed yesterday. Has a tracheostomy, status post bronchoscopy. The patient's propofol was held this morning, opening her eyes, I am not sure she is really following commands. Remains on the ventilator with FiO2 of 50 and a PEEP of 8. Remains on insulin drip insulin drip. The patient also remains in atrial flutter fibrillation and is also getting normal saline. This patient's is at the bedside. REVIEW OF SYSTEMS: Patient is intubated. CURRENT MEDICATIONS: Current medications are reviewed that include IV meropenem, insulin drip, Seroquel. PHYSICAL EXAMINATION: On examination, temperature 98.8, pulse 101, respiration 24, blood pressure 136/71, pulse ox 99% on ventilator. GENERAL APPEARANCE: Lying in bed, intubated. EYES: Pupils equal. Conjunctivae normal. HEENT: External appearance of nose and ears normal. Oral cavity, endotracheal tube has been discontinued. NECK: Tracheostomy tube in place. JVD unable to assess. RESPIRATORY: Effort normal. Lungs, diminished breath sounds. CARDIOVASCULAR: Heart sounds muffled. Edema present. ABDOMEN: Soft, nontender. Liver and spleen not palpable. NEUROLOGICAL: Pupils reactive. Plantars equivocal. Not sure the patient is following commands. INVESTIGATIONS: White count 10.3, hemoglobin 7.2. Blood gas showed a pH of 7.49, sodium 150, potassium 4.1, BUN 51, creatinine 0.90. ASSESSMENT: 1. Four-vessel coronary bypass. 2. Coronary artery disease with prior history of stent, presented with acute myocardial infarction this admission. Subsequently patient had a cardiac arrest with VFib. 3. Morbid obesity, BMI greater than 50. 4. Intermittent asthma. 5. Diabetes mellitus type 2, chronically requiring insulin, currently on insulin drip. 6. Gastroesophageal reflux disease. 7. Hyperlipidemia. 8. Obstructive sleep apnea uses CPAP until recently. 9. Right mastectomy for cancer. 10.Right axillary lesion, being followed as an outpatient. 11.Bilateral nephrolithiasis asymptomatic. 12.Left adrenal nodule 2.5 cm. 13.Hypertensive heart disease. 14.Acute respiratory failure, hypoxic on ventilator assistance with failure to wean. 15.Acute blood loss anemia expected from surgery requiring blood transfusion. 16.Hypoalbuminemia as an acute phase reactant. 17.Paroxysmal atrial fibrillation, patient in and out of the same. 18.Left basal pneumonia with cultures growing Enterobacter cloacae for which patient is on meropenem. 19.Hyponatremia with hypochloremia, increased BUN, suspect volume contraction. 20.Metabolic alkalosis. PLAN: Discussed with Dr. Ott. He would like to stop the Seroquel. The patient probably needs more free fluids. Prognosis remains guarded. The patient's propofol was held this morning. The patient remains on insulin drip. Deeding will be resumed today. MMODL / IJN: [id number] /
[2017-06-15 18:44] LABS: Glucose,Whole Blood 153 mg/dL (75-99)
[2017-06-15 19:59] LABS: Glucose,Whole Blood 172 mg/dL (75-99)
[2017-06-15] MEDS: INSULIN REGULAR 100 UNIT in SODIUM CHLORIDE 0.9% 100 ML IV SCH (20:03)
[2017-06-15] MEDS: SENNOSIDES-DOCUSATE SODIUM 1 EACH TAB PO SCH (20:08)
[2017-06-15] MEDS: MONTELUKAST 10 MG TAB PO SCH (20:08)
[2017-06-15] MEDS: APIXABAN 5 MG TAB PEG/G-TUBE SCH (20:09)
[2017-06-15 20:53] LABS: Glucose,Whole Blood 167 mg/dL (75-99)
[2017-06-15 22:15] LABS: Glucose,Whole Blood 148 mg/dL (75-99)
[2017-06-15 23:53] LABS: Glucose,Whole Blood 148 mg/dL (75-99)
[2017-06-15] MEDS: LACTATED RINGERS 1,000 ML IV SCH (23:56)
[2017-06-16 01:09] LABS: Glucose,Whole Blood 133 mg/dL (75-99)
[2017-06-16 01:52] LABS: Glucose,Whole Blood 121 mg/dL (75-99)
[2017-06-16 02:58] LABS: Glucose,Whole Blood 144 mg/dL (75-99)
[2017-06-16] MEDS: IPRATROPIUM-ALBUTEROL 3 ML NEB INHALATION SCH ×6 (03:14→23:17)
[2017-06-16 04:04] LABS: Glucose,Whole Blood 153 mg/dL (75-99)
[2017-06-16 04:14] LABS: Anisocytosis Slight; Basophils % (A) 0 %; Eosinophils % (A) 0 %; HCT 26.2 % (34.0-46.0); HGB 7.6 gm/dL (11.4-16.0); Hypochromasia Marked; Lymphocytes # (A) 0.6 k/uL (1.0-4.8); Lymphocytes % (A) 6 %; MCH 27.3 pg (25.0-35.0); MCV 94.4 fL (80.0-100.0); Macrocytosis Slight; Mean Platelet Volume 9.7; Monocytes # (A) 0.5 k/uL (0-1.0); Monocytes % (A) 5 %; Neutrophils # (A) 8.1 k/uL (1.3-7.7); Neutrophils % (A) 88 %; Platelet Count 156 k/uL (150-450); Poikilocytosis Slight; RBC 2.77 m/uL (3.80-5.40); RDW 18.5 % (11.5-15.5); WBC 9.3 k/uL (3.8-10.6)
[2017-06-16 04:43] LABS: Albumin 2.4 g/dL (3.5-5.0); Calcium 8.7 mg/dL (8.4-10.2); Potassium 3.4 mmol/L (3.5-5.1); Total Protein 5.5 g/dL (6.3-8.2)
[2017-06-16 05:07] LABS: ABG Base Excess 3.1 mmol/L; ABG HCO3 27 mmol/L (21-25); ABG Oxygen Saturation 95.6 % (94-97); ABG PCO2 37 mmHg (35-45); ABG PH 7.47 (7.35-7.45); ABG PO2 75 mmHg (83-108); ABG TCO2 28 mmol/L (19-24)
[2017-06-16 05:16] LABS: Glucose,Whole Blood 135 mg/dL (75-99)
[2017-06-16] MEDS: SODIUM CHLORIDE 0.45% 1,000 ML IV SCH ×2 (05:16→16:31)
[2017-06-16] MEDS ORDERED: POTASSIUM CHLORIDE ER 20 MEQ TAB.ER PO SCH (06:00)
[2017-06-16] MEDS ORDERED: POTASSIUM BICARBONATE/CIT AC 20 MEQ TABLET.EFF PO ONE (06:05)
[2017-06-16 06:33] LABS: Glucose,Whole Blood 167 mg/dL (75-99)
--- NOTE | 2017-06-16 06:48 | XR ---
EXAMINATION TYPE: XR chest 1V portable DATE OF EXAM: 06/16/2017 HISTORY: post cardiac surgery. REFERENCE: Previous study dated 320 05/29/2017. FINDINGS: The tracheostomy tube is in place. Its tip overlies the tracheal air column in this single frontal projection. There is been a midline sternotomy. The heart is enlarged. There is left basilar airspace disease. There is a moderate left effusion. Vas cular congestion has improved. IMPRESSION: 1. CONTINUING LEFT BASILAR AIRSPACE DISEASE. 2. MODERATE LEFT EFFUSION. 3. IMPROVEMENT IN THE DEGREE OF VASCULAR CONGESTION.
[2017-06-16] MEDS: BUDESONIDE 1 MG/2 ML NEBU INHALATION SCH ×2 (08:05→19:30)
[2017-06-16] MEDS: FERROUS SULFATE ORAL ELIXIR 300 MG/5 ML CUP OG-TUBE SCH ×2 (08:19→16:31)
[2017-06-16] MEDS: ASPIRIN 81 MG PO SCH (08:19)
[2017-06-16] MEDS: MEROPENEM 1 GM in SODIUM CHLORIDE 0.9% 100 ML IVPB SCH ×2 (08:19→16:29)
[2017-06-16] MEDS: METOPROLOL TARTRATE 50 MG TAB PO SCH ×2 (08:20→20:14)
[2017-06-16] MEDS: PANTOPRAZOLE 40 MG/10 ML VIAL IVP SCH (08:20)
[2017-06-16] MEDS: APIXABAN 5 MG TAB PEG/G-TUBE SCH ×2 (08:20→20:14)
[2017-06-16] MEDS: CHLORHEXIDINE GLUCONATE 15 ML CUP MUCOUS MEM SCH ×2 (08:20→20:14)
[2017-06-16] MEDS: DIGOXIN 125 MCG TAB OG-TUBE SCH (08:21)
[2017-06-16] MEDS: ASCORBIC ACID 500 MG TAB PO SCH ×2 (08:21→20:14)
[2017-06-16] MEDS: ATORVASTATIN 40 MG TAB PO SCH (08:21)
[2017-06-16] MEDS: AMIODARONE 200 MG TAB PO SCH (08:21)
[2017-06-16] MEDS: POTASSIUM BICARBONATE/CIT AC 20 MEQ TABLET.EFF PO SCH (08:36)
[2017-06-16 08:37] LABS: Glucose,Whole Blood 164 mg/dL (75-99)
--- NOTE | 2017-06-16 09:38 | P.PN ---
Subjective Progress Note Date: 06/16/17 Principal diagnosis: Multivessel coronary artery disease, status post ventricular fibrillation arrest , history of hypertension, hyperlipidemia, insulin dependent diabetes mellitus with preoperative hemoglobin A1c 9.4%, non-ST elevation myocardial infarction this admission and history of previous myocardial infarction with stent placement to the RCA in 2010, preserved left ventricular function with preoperative ejection fraction of 50-55%, mild mitral valve regurgitation, obesity, obstructive sleep apnea, recent pneumonia in March 2017, previous tobacco dependence, right breast cancer with lumpectomy and radiation, chronic obstructive pulmonary disease with preoperative FEV1 of 76% of predicted and preoperative arterial blood gas pH 7.46, pCO2 40, pO2 68, HCO3 28, GERD and family history of premature coronary artery disease. POD #14 coronary artery bypass grafting 4 using the left internal mammary artery to the left anterior descending coronary artery, a reverse greater saphenous vein graft from the aorta to the distal posterior descending coronary artery, a reverse greater saphenous vein graft from the aorta to the ramus intermedius coronary artery, a reverse greater saphenous vein graft from the aorta to the second diagonal coronary artery. Endoscopic harvesting of the right greater saphenous vein. Intraoperative transesophageal echocardiogram and epi-aortic scanning. Intraoperative graft flow measurement using the [employer] system. Status post preoperative acute cardiac arrest with ventricular fibrillation arrest with successful resuscitation. Postoperative prolonged mechanical ventilation secondary to hemodynamic instability and acute hypoxic respiratory failure, an unexpected but potential outcome of surgery. Postoperative atrial fibrillation, an unexpected but potential outcome of surgery. POD #10 bronchoscopy per pulmonology, bronchial washings positive for Enterobacter cloacae. Postoperative acute blood loss anemia, a potential outcome of surgery. The patient is currently sitting up to the bedside cardiac chair. She is in no acute distress. She is currently hemodynamically stable. She remains midline tracheostomy and mechanical ventilator support. Her sedation is remains on hold , she is following simple verbal commands at this time. She is shaking her head yes and no appropriately to questions, she is moving all 4 extremities with weak movement. Objective - Vital Signs Vital signs: Vital Signs Temp 98.2 F 06/16/17 04:00 Pulse 86 06/16/17 08:09 Resp 20 06/16/17 07:00 BP 120/57 06/16/17 02:00 Pulse Ox 98 06/16/17 07:00 Intake & Output 06/15/17 06/16/17 06/16/17 18:59 06:59 18:59 Intake Total 1967.481 8131 205.792 Output Total 1135 1020 440 Balance 46.766 729 -234.208 Weight 125.2 kg Intake: IV 905 961 78 0.9 for pressure 30 36 3 Meropenem 1 gm In Sodium 200 100 Chloride 0.9% 100 ml @ 200 mls/hr IVPB Q8HR [facility] Rx#:[id number] Sodium Chloride 0.45% 1, 675 825 75 000 ml @ 75 mls/hr IV . [id number] [facility] Rx#:[id number] Intake, IV Titration 78.766 81.792 Amount Insulin Regular 100 unit 49.541 81.792 In Sodium Chloride 0.9% 100 ml @ Per Protocol IV .Q0M [facility] Rx#:[id number] Propofol 1,000 mg In 29.225 Empty Bag 1 bag @ Titrate IV .Q0M [facility] Rx#: [id number] Tube Feeding 168 698 46 Other 30 90 Output: Drainage 255 260 90 Right Lower Medial Calf 255 260 90 Urine 880 760 350 Other: Voiding Method Indwelling Catheter Indwelling Catheter ABP, PAP, CO, CI - Last Documented Arterial Blood Pressure 150/78 Pulmonary Artery Pressure 33/21 Cardiac Output 5 Cardiac Index 2.4 - Constitutional General appearance: Present: cooperative, no acute distress, obese - EENT ENT: Present: hearing grossly normal - Neck Details: Neck is supple, no JVD. - Respiratory Details: Lung sounds are essentially diminished throughout. Respirations are symmetrical and nonlabored with mechanical ventilator support. Midline trach # 8 Shiley intact, sutures secured, trach to mechanical ventilator support. Current ventilator settings are as follows: Assist control 28, tidal volume 400 , FiO2 50%, PEEP 5. Oxygen saturations on current ventilator support is 100%. ABG results this morning 7.47/37/75/27/3.1/95.6% on 50% FiO2. - Cardiovascular Details: Regular rhythm and rate. S1 and S2 present, negative for S3, gallop or murmur. Sternum is stable. Bedside telemetry showing normal sinus rhythm heart rate 86. Knee-high DIVINE hose and sequential compression devices in place to her bilateral lower extremities. Left radial arterial line in place and functioning. Left brachial PICC line in place and functioning. - Gastrointestinal Gastrointestinal Comment(s): Abdomen is soft, nontender and nondistended. Obese. Active bowel sounds to all 4 abdominal quadrants. PEG tube in place and functioning with vital high- protein to feeding infusing at goal rate of 56 mL per hour with 100 mL of free water every 4 hours. - Genitourinary Genitourinary Comment(s): Lea catheter for accurate I&O. Clear nithin urine with some sediment. Adequate urine output 330 mL output in the last 8 hours. - Integumentary Integumentary Comment(s): Skin is warm and dry. Face is flushed. No clubbing or cyanosis. Midline sternal incision clean dry and well approximated. No drainage or redness present. Dermabond dressing clean and dry. Right lower extremity EVH site well approximated. Clean and dry. DREW drain in place evacuating thin serosanguineous drainage. 90 mL output in the last 8 hours, 385 mL output in the last 24 hours. - Neurologic Neurologic Comment(s): Openings eyes with verbal stimuli. Moving all 4 extremities with verbal stimuli with weak movements. - Musculoskeletal Musculoskeletal: Present: generalized weakness, strength equal bilaterally - Allied health notes Allied health notes reviewed: nursing - Labs CBC & Chem 7: 06/16/17 04:03 06/16/17 04:03 Labs: Abnormal Lab Results - Last 24 Hours (Table) 06/15/17 06/15/17 06/15/17 Range/Units 11:55 13:55 16:04 RBC (3.80-5.40) m/uL Hgb (11.4-16.0) gm/dL Hct (34.0-46.0) % MCHC (31.0-37.0) g/dL RDW (11.5-15.5) % Neutrophils # (1.3-7.7) k/uL Lymphocytes # (1.0-4.8) k/uL ABG pH (7.35-7.45) ABG pO2 (83-108) mmHg ABG HCO3 (21-25) mmol/L ABG Total CO2 (19-24) mmol/L Sodium (137-145) mmol/L Potassium (3.5-5.1) mmol/L Chloride (98-107) mmol/L BUN (7-17) mg/dL Glucose (74-99) mg/dL POC Glucose (mg/dL) 135 H 113 H 103 H (75-99) mg/dL Total Protein (6.3-8.2) g/dL Albumin (3.5-5.0) g/dL 06/15/17 06/15/17 06/15/17 Range/Units 16:50 18:05 18:42 RBC (3.80-5.40) m/uL Hgb (11.4-16.0) gm/dL Hct (34.0-46.0) % MCHC (31.0-37.0) g/dL RDW (11.5-15.5) % Neutrophils # (1.3-7.7) k/uL Lymphocytes # (1.0-4.8) k/uL ABG pH (7.35-7.45) ABG pO2 (83-108) mmHg ABG HCO3 (21-25) mmol/L ABG Total CO2 (19-24) mmol/L Sodium (137-145) mmol/L Potassium (3.5-5.1) mmol/L Chloride (98-107) mmol/L BUN (7-17) mg/dL Glucose (74-99) mg/dL POC Glucose (mg/dL) 119 H 147 H 153 H (75-99) mg/dL Total Protein (6.3-8.2) g/dL Albumin (3.5-5.0) g/dL 06/15/17 06/15/17 06/15/17 Range/Units 19:56 20:51 22:14 RBC (3.80-5.40) m/uL Hgb (11.4-16.0) gm/dL Hct (34.0-46.0) % MCHC (31.0-37.0) g/dL RDW (11.5-15.5) % Neutrophils # (1.3-7.7) k/uL Lymphocytes # (1.0-4.8) k/uL ABG pH (7.35-7.45) ABG pO2 (83-108) mmHg ABG HCO3 (21-25) mmol/L ABG Total CO2 (19-24) mmol/L Sodium (137-145) mmol/L Potassium (3.5-5.1) mmol/L Chloride (98-107) mmol/L BUN (7-17) mg/dL Glucose (74-99) mg/dL POC Glucose (mg/dL) 172 H 167 H 148 H (75-99) mg/dL Total Protein (6.3-8.2) g/dL Albumin (3.5-5.0) g/dL 06/15/17 06/16/17 06/16/17 Range/Units 23:51 01:08 01:51 RBC (3.80-5.40) m/uL Hgb (11.4-16.0) gm/dL Hct (34.0-46.0) % MCHC (31.0-37.0) g/dL RDW (11.5-15.5) % Neutrophils # (1.3-7.7) k/uL Lymphocytes # (1.0-4.8) k/uL ABG pH (7.35-7.45) ABG pO2 (83-108) mmHg ABG HCO3 (21-25) mmol/L ABG Total CO2 (19-24) mmol/L Sodium (137-145) mmol/L Potassium (3.5-5.1) mmol/L Chloride (98-107) mmol/L BUN (7-17) mg/dL Glucose (74-99) mg/dL POC Glucose (mg/dL) 148 H 133 H 121 H (75-99) mg/dL Total Protein (6.3-8.2) g/dL Albumin (3.5-5.0) g/dL 06/16/17 06/16/17 06/16/17 Range/Units 02:56 04:02 04:03 RBC 2.77 L (3.80-5.40) m/uL Hgb 7.6 L (11.4-16.0) gm/dL Hct 26.2 L (34.0-46.0) % MCHC 29.0 L (31.0-37.0) g/dL RDW 18.5 H (11.5-15.5) % Neutrophils # 8.1 H (1.3-7.7) k/uL Lymphocytes # 0.6 L (1.0-4.8) k/uL ABG pH (7.35-7.45) ABG pO2 (83-108) mmHg ABG HCO3 (21-25) mmol/L ABG Total CO2 (19-24) mmol/L Sodium (137-145) mmol/L Potassium (3.5-5.1) mmol/L Chloride (98-107) mmol/L BUN (7-17) mg/dL Glucose (74-99) mg/dL POC Glucose (mg/dL) 144 H 153 H (75-99) mg/dL Total Protein (6.3-8.2) g/dL Albumin (3.5-5.0) g/dL 06/16/17 06/16/17 06/16/17 Range/Units 04:03 05:05 05:14 RBC (3.80-5.40) m/uL Hgb (11.4-16.0) gm/dL Hct (34.0-46.0) % MCHC (31.0-37.0) g/dL RDW (11.5-15.5) % Neutrophils # (1.3-7.7) k/uL Lymphocytes # (1.0-4.8) k/uL ABG pH 7.47 H (7.35-7.45) ABG pO2 75 L (83-108) mmHg ABG HCO3 27 H (21-25) mmol/L ABG Total CO2 28 H (19-24) mmol/L Sodium 148 H (137-145) mmol/L Potassium 3.4 L (3.5-5.1) mmol/L Chloride 113 H (98-107) mmol/L BUN 48 H (7-17) mg/dL Glucose 152 H (74-99) mg/dL POC Glucose (mg/dL) 135 H (75-99) mg/dL Total Protein 5.5 L (6.3-8.2) g/dL Albumin 2.4 L (3.5-5.0) g/dL 18 06/16/17 Range/Units 06:31 08:35 RBC (3.80-5.40) m/uL Hgb (11.4-16.0) gm/dL Hct (34.0-46.0) % MCHC (31.0-37.0) g/dL RDW (11.5-15.5) % Neutrophils # (1.3-7.7) k/uL Lymphocytes # (1.0-4.8) k/uL ABG pH (7.35-7.45) ABG pO2 (83-108) mmHg ABG HCO3 (21-25) mmol/L ABG Total CO2 (19-24) mmol/L Sodium (137-145) mmol/L Potassium (3.5-5.1) mmol/L Chloride (98-107) mmol/L BUN (7-17) mg/dL Glucose (74-99) mg/dL POC Glucose (mg/dL) 167 H 164 H (75-99) mg/dL Total Protein (6.3-8.2) g/dL Albumin (3.5-5.0) g/dL Microbiology - Last 24 Hours (Table) 06/12/17 14:53 Blood Culture - Preliminary Blood No Growth after 72 hours 06/12/17 17:25 Gram Stain - Final Sputum Sputum Culture - Final Enterobacter cloacae - Imaging and Cardiology Chest x-ray: report reviewed, image reviewed Assessment and Plan (1) History of right breast cancer Current Visit: Yes Status: Acute Code(s): Z85.3 - PERSONAL HISTORY OF MALIGNANT NEOPLASM OF BREAST SNOMED Code(s): 985553332 (2) Non-STEMI (non-ST elevated myocardial infarction) Current Visit: Yes Status: Acute Code(s): I21.4 - NON-ST ELEVATION (NSTEMI) MYOCARDIAL INFARCTION SNOMED Code(s): 263318725 (3) Diabetes mellitus Current Visit: Yes Status: Chronic Code(s): E11.9 - TYPE 2 DIABETES MELLITUS WITHOUT COMPLICATIONS SNOMED Code(s): 79526317 (4) Family history of premature coronary artery disease Current Visit: Yes Status: Chronic Code(s): Z82.49 - FAMILY HX OF ISCHEM HEART DIS AND OTH DIS OF THE [facility] SNOMED Code(s): 931956284 (5) History of heart artery stent Current Visit: Yes Status: Chronic Code(s): Z95.5 - PRESENCE OF CORONARY ANGIOPLASTY IMPLANT AND GRAFT SNOMED Code(s): 667458652 (6) Hyperlipidemia Current Visit: Yes Status: Chronic Code(s): E78.5 - HYPERLIPIDEMIA, UNSPECIFIED SNOMED Code(s): 99856207 (7) Hypertension Current Visit: Yes Status: Chronic Code(s): I10 - ESSENTIAL (PRIMARY) HYPERTENSION SNOMED Code(s): 76844318 (8) Morbid obesity with BMI of 40.0-44.9, adult Current Visit: Yes Status: Chronic Code(s): E66.01 - MORBID (SEVERE) OBESITY DUE TO EXCESS CALORIES; Z68.41 - BODY MASS INDEX (BMI) 40.0-44.9, ADULT SNOMED Code(s): 472762206 (9) History of sudden cardiac arrest successfully resuscitated Current Visit: Yes Status: Acute Code(s): Z86.74 - PERSONAL HISTORY OF SUDDEN CARDIAC ARREST SNOMED Code(s): 046063151 Plan: 1. Continue aspirin, statin, metoprolol, and digoxin. We will increase the metoprolol tartrate as tolerated. 2. Continue Eliquis 5 mg per PEG tube twice a day. 3. Continue amiodarone, we will decrease the amiodarone to 200 mg by mouth daily for atrial fibrillation prophylaxis. 4. Increase activity as tolerated, physical therapy and occupational therapy consulted. 5. Mechanical ventilator management and pulmonary recommendations per Dr. Ott. 6. Medical management and insulin management per primary care service. 7. DVT and GI prophylaxis. Knee-high DIVINE hose and sequential compression devices in place. 8. Lea catheter for strict I&O's. 9. Continue tube feedings per dietitian's recommendations after 24 hours has completed of PEG tube placement. 10. Monitor daily labs and chest x-rays. 11. Continue to hold sedation. 12. More recommendations to follow as the patient progresses in her care. Time with Patient: Greater than 30
--- NOTE | 2017-06-16 10:13 | P.PN ---
Subjective Progress Note Date: 06/16/17 Principal diagnosis: Status post four-vessel bypass grafting, respiratory failure Progress note dated 06/11/2017 This is a 66-year-old female with acute hypoxemic respiratory failure status post four-vessel bypass grafting, postop day #9. The patient had a history of acute cardiac arrest and was resuscitated successfully. She was intubated and placed on mechanical ventilator. She is postop day #9 status post four-vessel bypass grafting. Upper this point, the patient has not really had any major or significant weaning towards extubation. She does have a history of COPD with an FEV1 at 76% of predicted suggesting moderate disease. In addition, the patient has history of sleep apnea syndrome obesity CAD pneumonia hyperlipidemia hypertension right breast cancer with previous lumpectomy and lymph node dissection gastroesophageal reflux disease diabetes mellitus anemia and left lower lobe pneumonia secondary to Enterobacter cloacae. Currently, the chest x-ray shows either consolidation or effusion in the left lower lobe. The patient is on the ventilator with the assist control mode rate of 18 tidal volume of 500 FiO2 50% and PEEP of 5. Blood gases show a PaO2 of 69 a PaCO2 34 and pH 7.52. The patient is receiving saline IV at 70 mL an hour , propofol at 25 mics per kilogram per minute Primacor 0.125 mcg/kg/m insulin drip which is currently on hold and vital high protein tube feeds at 54 with a goal of 54 mL an hour. We will attempt a daily eruption of sedation on her and see whether or not she would tolerate a spontaneous breathing trial. I did make some vent changes dropping the volume down to 400 and increasing the rate to 28. Her spontaneous rate was about 28. She was admitted on May 28 and had her four- vessel bypass grafting on June 02. Her hospitalization was been uncomplicated by atrial fibrillation with rapid ventricular response. Progress note dated 06/12/2017 This is a 66-year-old female with acute hypoxemic respiratory failure status post four-vessel bypass grafting, postop day #10. The patient had a history of acute cardiac arrest and was resuscitated successfully. She was intubated and placed on mechanical ventilator. She is postop day #9 status post four-vessel bypass grafting. Upper this point, the patient has not really had any major or significant weaning towards extubation. She does have a history of COPD with an FEV1 at 76% of predicted suggesting moderate disease. In addition, the patient has history of sleep apnea syndrome obesity CAD pneumonia hyperlipidemia hypertension right breast cancer with previous lumpectomy and lymph node dissection gastroesophageal reflux disease diabetes mellitus anemia and left lower lobe pneumonia secondary to Enterobacter cloacae. Currently, the chest x-ray shows either consolidation or effusion in the left lower lobe. The patient is on the ventilator with the assist control mode rate of 28 tidal volume of 400 FiO2 50% and PEEP of 10. Blood gases show a PaO2 of 79 a PaCO2 36 and pH 7.47. The patient is receiving saline IV at 70 mL an hour , propofol at 25 mics per kilogram per minute Primacor 0.125 mcg/kg/m insulin drip which is currently on hold and vital high protein tube feeds at 54 with a goal of 54 mL an hour. We will attempt a daily interuption of sedation on her and see whether or not she would tolerate a spontaneous breathing trial. I did make some vent changes dropping the volume down to 400 and increasing the rate to 28. Her spontaneous rate was about 28. She was admitted on May 28 and had her four-vessel bypass grafting on June 02. Her hospitalization was been uncomplicated by atrial fibrillation with rapid ventricular response. The patient did spend about 1-1/2 hours on PSV 10 and CPAP of 5 yesterday. Unfortunately, the weaning trial was aborted because of high respiratory rate in atrial fibrillation with RVR. She is likely to be having a tracheostomy sometime this week. Again we will attempt PSV and CPAP sometime today. Prognosis on my opinion is not good for successful weaning and this patient. Progress note dated 06/13/2017 66-year-old female with a history of acute hypoxemic respiratory failure, status post four-vessel bypass grafting, postop day #11. The patient has a history of acute cardiac arrest and was resuscitated successfully. She was intubated and placed on mechanical ventilator. She is postop day 11 status post four-vessel bypass grafting. Up to this point, the patient has not really had any major significant weaning towards extubation. Will be due stop her sedation, she becomes very tachypneic and dyspneic. She also becomes very tachycardic with A. fib and RVR. She does have history of COPD with an FEV1 at 76% of predicted suggesting mild/moderate COPD. In addition, she suffers from sleep apnea syndrome obesity CAD pneumonia hyperlipidemia hypertension right breast cancer with previous lumpectomy and lymph node dissection GERD diabetes mellitus anemia left lower lobe pneumonia secondary to Enterobacter cloaca. Currently, chest x-ray continues to show a patchy infiltrate or effusion at the left lung base. There also may be some atelectasis at the left lung base. Currently she is on the assist control mode rate of 28 tidal volume 400 FiO2 50 % and PEEP of 10. With those settings, her PaO2 of 78 pCO2 was 37 and pH 7.49. She is currently on propofol at 30 mics per kilogram per minute insulin drip which is currently on hold lactated Ringer's IV at 20 mL an hour and vital high protein tube feeds at 54 mL per hour with a goal of 54 mL per hour. Today we will try a daily interuption of sedation on both pressure support and CPAP. She is apparently scheduled for a trach and PEG tomorrow by Dr. Lujan on June 14 Over the last 3 or 4 days and I been seeing her, the patient really has made no significant progress towards extubation. Progress note dated 06/15/2017 66-year-old female with history of acute hypoxemic respiratory failure, status post four-vessel bypass grafting, postoperative day #13. The patient has a history of acute cardiac arrest and was resuscitated successfully. She was intubated and placed on mechanical ventilator. She is postop day #13. She is status post four-vessel bypass grafting. She did have a trach and PEG performed on June 14. Up to this point, will be attempted weaning and extubation, she became very to Dyspneic and tachycardic. We also had problems with atrial fibrillation with RVR. The patient has a history of mild to moderate COPD with an FEV1 of 76% of predicted in addition, she suffers from sleep apnea syndrome obesity CAD pneumonia hyperlipidemia hypertension right breast cancer with previous lumpectomy and lymph node dissection GERD diabetes mellitus anemia left lower lobe pneumonia secondary to Enterobacter cloacae. Today we will try a spontaneous breathing trial. She's currently in no sedation. Her current vent settings include the assist control mode rate of 28 , tidal volume 400, FiO2 50% and a PEEP of 10 to be dropped down to 8. Arterial blood gases show a PaO2 of 97 a pCO2 of 36 and pH of 7.49. Her IVs include saline at 75 mL an hour propofol which is off insulin drip which is often tube feeds which are on hold until later today. Again the tracheostomy and PEG tube placement were done yesterday afternoon. Later today, we will drop the PEEP down from 8 to 5. Progress note dated 06/16/2017 66-year-old female with a history of acute hypoxemic respiratory failure, status post four-vessel bypass grafting, postoperative day #14. The patient has a history of acute cardiac arrest and was resuscitated successfully. She was intubated and placed on mechanical ventilator. Again she is postop day # 14. She status post four-vessel bypass grafting. She had a trach and PEG performed on June 14. Up to this point, weaning has not been very good and attempts at extubation have been poor. She becomes very dyspneic and tachypneic and develops tachycardia. We will also had problems in the past with atrial fibrillation and rapid ventricular response. She does have mild to moderate COPD with an FEV1 that's 76% of predicted. In addition, she suffers from sleep apnea syndrome, obesity, CAD, pneumonia, hyperlipidemia, hypertension , right breast cancer, previous lumpectomy, GERD, diabetes mellitus, anemia, left lower lobe pneumonia. Currently, the patient is on the assist control mode rate of 28 tidal volume 400 FiO2 of 50% and PEEP of 5. Arterial blood gases show a PaO2 of 75 a PaCO2 37 and a pH of 7.47. She's getting half-normal saline IV at 75 mL an hour and insulin drip at 6.5 units an hour and tube feeds with vital 1.2 at 56 with a goal of 56. Again trach and PEG were done on the . Chest x-ray shows either consolidation or effusion/infiltrate at the left lung base. This been present for a number of days. She had a CT of the brain done on June 10. That was negative. All sedatives have been helpful. She's currently placed on pressure support of 10 CPAP of 5. I've given the respiratory therapist instructions on how to proceed. Objective - Vital Signs Vital signs: Vital Signs Temp 98.8 F 06/16/17 09:00 Pulse 86 06/16/17 09:00 Resp 31 H 06/16/17 09:00 BP 141/79 06/16/17 09:00 Pulse Ox 100 06/16/17 09:00 Intake & Output 06/15/17 06/16/17 06/16/17 18:59 06:59 18:59 Intake Total 2424.666 9679 407.792 Output Total 1135 1020 760 Balance 46.766 729 -352.208 Weight 125.2 kg Intake: IV 905 961 234 0.9 for pressure 30 36 9 Meropenem 1 gm In Sodium 200 100 Chloride 0.9% 100 ml @ 200 mls/hr IVPB Q8HR [facility] Rx#:[id number] Sodium Chloride 0.45% 1, 675 825 225 000 ml @ 75 mls/hr IV . [id number] [facility] Rx#:[id number] Intake, IV Titration 78.766 81.792 Amount Insulin Regular 100 unit 49.541 81.792 In Sodium Chloride 0.9% 100 ml @ Per Protocol IV .Q0M [facility] Rx#:[id number] Propofol 1,000 mg In 29.225 Empty Bag 1 bag @ Titrate IV .Q0M [facility] Rx#: [id number] Tube Feeding 168 698 92 Other 30 90 Output: Drainage 255 260 210 Right Lower Medial Calf 255 260 210 Urine 880 760 550 Other: Voiding Method Indwelling Catheter Indwelling Catheter ABP, PAP, CO, CI - Last Documented Arterial Blood Pressure 172/81 Pulmonary Artery Pressure 33/21 Cardiac Output 5 Cardiac Index 2.4 - Exam No acute distress, the patient is currently not on any sedation, has a fresh tracheostomy tube, and a PEG tube. HEENT examination is grossly unremarkable. Mucous membranes are moist. Neck supple. Full range of motion. No adenopathy. Cardiovascular examination reveals a regular rhythm rate. Heart rate about 85 bpm. Lungs reveal some diffuse rhonchi. Breath sounds are diminished. No wheezes. Abdomen soft bowel sounds are heard. Extremities are intact. No cyanosis clubbing or edema. Skin without rash. Neurologic examination is difficult to assess. She does seem to respond to verbal stimuli but doesn't open her eyes. - Labs CBC & Chem 7: 06/16/17 04:03 06/16/17 04:03 Labs: Abnormal Lab Results - Last 24 Hours (Table) 06/15/17 06/15/17 06/15/17 Range/Units 11:55 13:55 16:04 RBC (3.80-5.40) m/uL Hgb (11.4-16.0) gm/dL Hct (34.0-46.0) % MCHC (31.0-37.0) g/dL RDW (11.5-15.5) % Neutrophils # (1.3-7.7) k/uL Lymphocytes # (1.0-4.8) k/uL ABG pH (7.35-7.45) ABG pO2 (83-108) mmHg ABG HCO3 (21-25) mmol/L ABG Total CO2 (19-24) mmol/L Sodium (137-145) mmol/L Potassium (3.5-5.1) mmol/L Chloride (98-107) mmol/L BUN (7-17) mg/dL Glucose (74-99) mg/dL POC Glucose (mg/dL) 135 H 113 H 103 H (75-99) mg/dL Total Protein (6.3-8.2) g/dL Albumin (3.5-5.0) g/dL 06/15/17 06/15/17 06/15/17 Range/Units 16:50 18:05 18:42 RBC (3.80-5.40) m/uL Hgb (11.4-16.0) gm/dL Hct (34.0-46.0) % MCHC (31.0-37.0) g/dL RDW (11.5-15.5) % Neutrophils # (1.3-7.7) k/uL Lymphocytes # (1.0-4.8) k/uL ABG pH (7.35-7.45) ABG pO2 (83-108) mmHg ABG HCO3 (21-25) mmol/L ABG Total CO2 (19-24) mmol/L Sodium (137-145) mmol/L Potassium (3.5-5.1) mmol/L Chloride (98-107) mmol/L BUN (7-17) mg/dL Glucose (74-99) mg/dL POC Glucose (mg/dL) 119 H 147 H 153 H (75-99) mg/dL Total Protein (6.3-8.2) g/dL Albumin (3.5-5.0) g/dL 06/15/17 06/15/17 06/15/17 Range/Units 19:56 20:51 22:14 RBC (3.80-5.40) m/uL Hgb (11.4-16.0) gm/dL Hct (34.0-46.0) % MCHC (31.0-37.0) g/dL RDW (11.5-15.5) % Neutrophils # (1.3-7.7) k/uL Lymphocytes # (1.0-4.8) k/uL ABG pH (7.35-7.45) ABG pO2 (83-108) mmHg ABG HCO3 (21-25) mmol/L ABG Total CO2 (19-24) mmol/L Sodium (137-145) mmol/L Potassium (3.5-5.1) mmol/L Chloride (98-107) mmol/L BUN (7-17) mg/dL Glucose (74-99) mg/dL POC Glucose (mg/dL) 172 H 167 H 148 H (75-99) mg/dL Total Protein (6.3-8.2) g/dL Albumin (3.5-5.0) g/dL 06/15/17 06/16/17 06/16/17 Range/Units 23:51 01:08 01:51 RBC (3.80-5.40) m/uL Hgb (11.4-16.0) gm/dL Hct (34.0-46.0) % MCHC (31.0-37.0) g/dL RDW (11.5-15.5) % Neutrophils # (1.3-7.7) k/uL Lymphocytes # (1.0-4.8) k/uL ABG pH (7.35-7.45) ABG pO2 (83-108) mmHg ABG HCO3 (21-25) mmol/L ABG Total CO2 (19-24) mmol/L Sodium (137-145) mmol/L Potassium (3.5-5.1) mmol/L Chloride (98-107) mmol/L BUN (7-17) mg/dL Glucose (74-99) mg/dL POC Glucose (mg/dL) 148 H 133 H 121 H (75-99) mg/dL Total Protein (6.3-8.2) g/dL Albumin (3.5-5.0) g/dL 06/16/17 06/16/17 06/16/17 Range/Units 02:56 04:02 04:03 RBC 2.77 L (3.80-5.40) m/uL Hgb 7.6 L (11.4-16.0) gm/dL Hct 26.2 L (34.0-46.0) % MCHC 29.0 L (31.0-37.0) g/dL RDW 18.5 H (11.5-15.5) % Neutrophils # 8.1 H (1.3-7.7) k/uL Lymphocytes # 0.6 L (1.0-4.8) k/uL ABG pH (7.35-7.45) ABG pO2 (83-108) mmHg ABG HCO3 (21-25) mmol/L ABG Total CO2 (19-24) mmol/L Sodium (137-145) mmol/L Potassium (3.5-5.1) mmol/L Chloride (98-107) mmol/L BUN (7-17) mg/dL Glucose (74-99) mg/dL POC Glucose (mg/dL) 144 H 153 H (75-99) mg/dL Total Protein (6.3-8.2) g/dL Albumin (3.5-5.0) g/dL 06/16/17 06/16/17 06/16/17 Range/Units 04:03 05:05 05:14 RBC (3.80-5.40) m/uL Hgb (11.4-16.0) gm/dL Hct (34.0-46.0) % MCHC (31.0-37.0) g/dL RDW (11.5-15.5) % Neutrophils # (1.3-7.7) k/uL Lymphocytes # (1.0-4.8) k/uL ABG pH 7.47 H (7.35-7.45) ABG pO2 75 L (83-108) mmHg ABG HCO3 27 H (21-25) mmol/L ABG Total CO2 28 H (19-24) mmol/L Sodium 148 H (137-145) mmol/L Potassium 3.4 L (3.5-5.1) mmol/L Chloride 113 H (98-107) mmol/L BUN 48 H (7-17) mg/dL Glucose 152 H (74-99) mg/dL POC Glucose (mg/dL) 135 H (75-99) mg/dL Total Protein 5.5 L (6.3-8.2) g/dL Albumin 2.4 L (3.5-5.0) g/dL 06/16/17 06/16/17 Range/Units 06:31 08:35 RBC (3.80-5.40) m/uL Hgb (11.4-16.0) gm/dL Hct (34.0-46.0) % MCHC (31.0-37.0) g/dL RDW (11.5-15.5) % Neutrophils # (1.3-7.7) k/uL Lymphocytes # (1.0-4.8) k/uL ABG pH (7.35-7.45) ABG pO2 (83-108) mmHg ABG HCO3 (21-25) mmol/L ABG Total CO2 (19-24) mmol/L Sodium (137-145) mmol/L Potassium (3.5-5.1) mmol/L Chloride (98-107) mmol/L BUN (7-17) mg/dL Glucose (74-99) mg/dL POC Glucose (mg/dL) 167 H 164 H (75-99) mg/dL Total Protein (6.3-8.2) g/dL Albumin (3.5-5.0) g/dL Microbiology - Last 24 Hours (Table) 06/12/17 14:53 Blood Culture - Preliminary Blood No Growth after 72 hours 06/12/17 17:25 Gram Stain - Final Sputum Sputum Culture - Final Enterobacter cloacae Assessment and Plan Assessment: Assessment Hypoxemic respiratory failure status post acute cardiopulmonary arrest requiring intubation and mechanical ventilation and successful resuscitation, now, with failure to wean. Ischemia induced ventricular fibrillation Severe multivessel coronary disease, status post four-vessel bypass grafting, postoperative day #14 Status post tracheostomy and PEG tube placement, postoperative day #2 Mental status changes, of unclear etiology. Patient had a negative computed tomography scan of the brain on June 10. All sedatives and hypnotics have been stopped. This could represent metabolic or anoxic encephalopathy. Mild/moderate COPD Sleep apnea syndrome, severe Obesity Coronary disease, with previous stenting Recent hospitalization at [facility] for right lower lobe pneumonia History of right breast cancer with lumpectomy and lymph node dissection GERD Diabetes mellitus Anemia Enterobacter cloacae left lower lobe pneumonia Plan: Plan dated 06/11/2017 The patient will have a weaning trial. The patient has a significant respiratory and metabolic alkalosis which will be a hindrance towards weaning. We'll change tidal volume from 500 down to 400. We'll increase the rate from 18 to 28. We'll try to deal with alkalosis. Additional recommendations and suggestions are forthcoming. Prognosis is guarded. If the patient is stable, we'll do a spontaneous breathing trial. Meds labs x-rays are all reviewed. Chest x-ray shows either consolidation or left-sided pleural effusion. Critical care time is 36 minutes Plan dated 06/12/2017 The patient had a very brief weaning trial yesterday. Unfortunately, atrial fibrillation with rapid ventricular response and a high respiratory rate up into the 40s prevented a longer weaning trial. I suspect that the patient will need a tracheostomy. I think is being planned for sometime this week. She really hasn't done very well. Off of all sedation, her mental status is poor. Her chest x-rays recently stable with a consolidation small effusion in the left base. Her medications labs and x-rays are all reviewed. She continues to be a full code. Prognosis is guarded. Additional recommendations and suggestions are forthcoming. Plan dated 06/13/2017 The patient is going to have a daily interuption of sedation and a weaning trial. I do not suspect that she will do well. Nonetheless, she is scheduled for a tracheostomy and possible PEG tube placement tomorrow. [facility] if she cannot be weaned. Currently, she is on propofol at 30 mics per kilogram per minute insulin drip is on hold lactated Ringer's IV at 20 mL an hour and vital high protein tube feeds. Blood gases are reasonable. Additional recommendations and suggestions are forthcoming. Critical care time is 34 minutes. Plan dated 06/15/2017 The patient did have a PEG tube placement and tracheostomy tube placement yesterday. They're postop day #1. 2 feedings be started later today. Vent settings are appropriate. The patient is off of sedation. We'll attempt a spontaneous breathing trial today. Chest x-ray still shows a dense consolidation in the left lower lobe which probably represents atelectasis/ pneumonia/fluid. The right lung is clear. Additional recommendations injections are forthcoming. We'll continue to follow. Prognosis is guarded. Critical care time 35 minutes. Plan dated 06/16/2017 The patient did have a PEG tube placement and tracheostomy tube placement on June 14. Today's postop day #2. She will be placed on PSV 10 CPAP of 5. All sedatives and hypnotics have been discontinued including the Seroquel. The patient will have a PSV/CPAP trial today. Labs x-rays a medications are all reviewed. He remains on an insulin drip at 6.5 units an hour. She is being nourished with vital 1.2 at 56 which is goal. Arterial blood gases are excellent. Mental status is still a concern. Critical care time 34 minutes Time with Patient: Greater than 30
[2017-06-16 10:44] LABS: Glucose,Whole Blood 162 mg/dL (75-99)
--- NOTE | 2017-06-16 10:54 | P.PN ---
Progress Note - Text Progress Note Date: 06/16/17 Patient alert on the ventilator. Denies pain. Tolerating tube feeds at goal. Abdomen with minimal tenderness. Bolster appropriate tight. She is having bowel movements this morning. Will loosen bolster tomorrow. Continue tube feeds at goal.
[2017-06-16 12:16] LABS: Glucose,Whole Blood 152 mg/dL (75-99)
--- NOTE | 2017-06-16 12:33 | PN ---
PROGRESS NOTE Mercedez is a 66-year-old lady with history of coronary artery disease, status post coronary artery bypass grafting. The patient had a tracheostomy and respiratory failure. Has had intermittent episodes of atrial fibrillation, currently in sinus rhythm. She is on Eliquis 5 b.i.d., amiodarone, Lopressor 100 b.i.d. On exam, heart rate is 85 beats per minute, blood pressure is 143/65, respirations 18. Chest exam reveals diminished air entry at the bases. Heart exam reveals first and second heart sounds. No gallop. Exam of extremities did not reveal any edema. LAB: Showed a hemoglobin of 7.6, platelet count is 156. Potassium is 3.4, creatinine is 0.8. ASSESSMENT: 1. Coronary artery disease, status post coronary artery bypass grafting. 2. Respiratory failure. 3. Chronic atrial fibrillation. PLAN: Patient will continue with current medications. MMODL / IJN: [id number] /
--- NOTE | 2017-06-16 12:42 | PN ---
PROGRESS NOTE Mercedez is a 66-year-old lady with history of coronary artery disease, status post CABG, status post mitral valve replacement, sternal wound dehiscence, status post surgery, status post tracheostomy. The patient is postop day #14. She remains in sinus rhythm this morning. She is more alert and awake and had a Dobbhoff placed. EXAM: Comfortable at rest. Vital signs are stable. Chest exam reveals diminished air entry at the bases. Heart exam reveals first and second heart sounds. No gallop. Abdomen is soft. Exam of extremities did not reveal any edema. Peripheral pulses are palpable. LABS: Showed that the hemoglobin is 7.6, creatinine is 0.8. Potassium is 3.4. ASSESSMENT: 1. Coronary artery disease status post CABG. 2. Respiratory failure. 3. Sternal wound dehiscence, status post surgery. 4. Status post mitral valve replacement. 5. Postop atrial fibrillation. PLAN: Patient is on Eliquis 5 b.i.d., and amiodarone, on Lipitor, on Lanoxin and Lopressor. We will continue. MMODL / IJN: [id number] /
[2017-06-16] MEDS ORDERED: FUROSEMIDE 10 MG/ML 4 ML VIAL IV STA (14:12)
[2017-06-16 14:42] LABS: Glucose,Whole Blood 163 mg/dL (75-99)
[2017-06-16] MEDS ORDERED: POTASSIUM BICARBONATE/CIT AC 20 MEQ TABLET.EFF NG-TUBE SCH (17:00)
[2017-06-16 18:06] LABS: Glucose,Whole Blood 147 mg/dL (75-99)
[2017-06-16] MEDS: INSULIN REGULAR 100 UNIT in SODIUM CHLORIDE 0.9% 100 ML IV SCH (18:15)
--- NOTE | 2017-06-16 18:24 | PN ---
PROGRESS NOTE DATE OF SERVICE: 06/16/2017 PRESENT COMPLAINT: Lethargic. INTERVAL HISTORY: The patient has known coronary artery disease, present with acute NH and subsequently had a cardiac arrest with VFib on the floor and ended up having a 4-vessel coronary bypass. Patient remains on the ventilator, has a tracheostomy tube and a PEG tube and PEG tube feeding at 30 mL out. Patient's Seroquel was discontinued and patient is definitely more awake, following some commands, still lethargic. Patient is on FiO2 of 15 and a PEEP of 5 and getting some weaning trials by Dr. Ott. Remains on insulin drip. Telemetry shows patient to be remaining in atrial flutter/fibrillation. REVIEW OF SYSTEMS: Patient is intubated on the ventilator. CURRENT MEDICATIONS: Include Cordarone, DuoNeb, lactated Ringer's 20 mL, IV meropenem, half saline at 75 mL an hour. PHYSICAL EXAMINATION: Temperature 100, pulse 87, respiration 29, blood pressure 147/66. GENERAL APPEARANCE: Propped up in a chair, lethargic but responds to commands, opens eyes, follows with eyes. EYES: Pupils equal, conjunctivae normal. HEENT: External appearance of nose and ears normal, oral cavity dry. NECK: Tracheostomy in place. JVD unable to assess. Respiratory effort increased. LUNGS: Distant breath sounds. CARDIOVASCULAR: Heart sounds irregular, some edema. ABDOMEN: Soft, nontender. Liver and spleen not palpable. NEUROLOGICAL: Patient does seem to move her head with commands, moves her head, opens her eyes. INVESTIGATIONS: White count 9.3, hemoglobin 7.6, platelets 156. Blood gas showed a pH of 7.47, pCO2 of 75. Sodium 148, potassium 3.4, BUN 48, creatinine 0.80. Accu-Cheks are noted. ASSESSMENT: 1. A 4-vessel coronary bypass. 2. Coronary artery disease with prior history of stent, presented with acute myocardial infarction on this admission, followed by cardiac arrest on the floor with ventricular fibrillation. 3. Morbid obesity, body mass index of greater than 50. 4. Intermittent asthma. 5. Diabetes mellitus type 2, chronically on insulin, currently insulin drip. 6. Hyperglycemia, uncontrolled. 7. Gastroesophageal reflux disease. 8. Hyperlipidemia. 9. Obstructive sleep apnea uses CPAP until recently. 10.Right mastectomy for cancer. 11.Right axillary lesion, being followed as an outpatient. 12.Bilateral nephrolithiasis, asymptomatic. 13.Left adrenal nodule 2.5 cm. 14.Hypertensive heart disease. 15.Acute hypoxic respiratory failure on ventilator assistance, getting weaned. 16.Acute blood loss anemia, as expected from surgery required blood transfusions. 17.Hypoalbuminemia as an acute phase reactant. 18.Persistent atrial fibrillation. Patient remains in atrial flutter/fibrillation. 19.Left basal pneumonia with cultures growing Enterobacter cloacae for which patient is on meropenem. 20.Hypernatremia with hyperchloremia, increase BUN, suspect volume contraction with metabolic alkalosis. PLAN: Patient has been done better with stopping the Seroquel and off the Diprivan. Recommendation to the cephalometric technician is to possibly give some more fluids. Patient's x-ray finding out because of probably patient's large body habitus. Otherwise, all parameters indicate towards free water deficit. Patient doing well on the current medication and treatment plan. Will follow. ARMANDO / RUBENN: [id number] /
[2017-06-16] MEDS: MONTELUKAST 10 MG TAB PO SCH (20:14)
[2017-06-16] MEDS: SENNOSIDES-DOCUSATE SODIUM 1 EACH TAB PO SCH (20:15)
[2017-06-16 20:26] LABS: Glucose,Whole Blood 135 mg/dL (75-99)
[2017-06-16] MEDS: LACTATED RINGERS 1,000 ML IV SCH (20:41)
[2017-06-16 21:59] LABS: Glucose,Whole Blood 112 mg/dL (75-99)
[2017-06-16 22:51] LABS: Glucose,Whole Blood 111 mg/dL (75-99)
[2017-06-16 23:53] LABS: Glucose,Whole Blood 114 mg/dL (75-99)
[2017-06-17 00:50] LABS: Glucose,Whole Blood 118 mg/dL (75-99)
[2017-06-17 02:00] LABS: Glucose,Whole Blood 119 mg/dL (75-99)
[2017-06-17] MEDS: MORPHINE ORAL SOLN 10 MG/5 ML CUP PO PRN ×2 (02:00→05:13)
[2017-06-17] MEDS: IPRATROPIUM-ALBUTEROL 3 ML NEB INHALATION SCH ×6 (03:19→23:05)
[2017-06-17 03:24] LABS: Glucose,Whole Blood 123 mg/dL (75-99)
[2017-06-17 04:13] LABS: Anisocytosis Slight; Basophils % (A) 0 %; Eosinophils % (A) 0 %; HCT 27.1 % (34.0-46.0); HGB 7.9 gm/dL (11.4-16.0); Hypochromasia Marked; Lymphocytes # (A) 0.5 k/uL (1.0-4.8); Lymphocytes % (A) 7 %; MCH 27.8 pg (25.0-35.0); MCHC 29.3 g/dL (31.0-37.0); MCV 94.9 fL (80.0-100.0); Macrocytosis Slight; Monocytes # (A) 0.2 k/uL (0-1.0); Monocytes % (A) 3 %; Neutrophils # (A) 5.9 k/uL (1.3-7.7); Neutrophils % (A) 88 %; Platelet Count 157 k/uL (150-450); Poikilocytosis Slight; RBC 2.86 m/uL (3.80-5.40); RDW 19.1 % (11.5-15.5); WBC 6.7 k/uL (3.8-10.6)
[2017-06-17 04:23] LABS: ALT 28 U/L (9-52); AST 31 U/L (14-36); Albumin 2.4 g/dL (3.5-5.0); Alkaline Phosphatase 84 U/L (38-126); Anion Gap 8 mmol/L; Blood Urea Nitrogen 41 mg/dL (7-17); Calcium 8.8 mg/dL (8.4-10.2); Carbon Dioxide 28 mmol/L (22-30); Chloride 114 mmol/L (98-107); Glucose 112 mg/dL (74-99); Magnesium 2.7 mg/dL (1.6-2.3); Phosphorus 2.9 mg/dL (2.5-4.5); Sodium 150 mmol/L (137-145); Total Bilirubin 1.5 mg/dL (0.2-1.3); Total Protein 5.5 g/dL (6.3-8.2)
[2017-06-17 05:08] LABS: Glucose,Whole Blood 109 mg/dL (75-99)
[2017-06-17 05:15] LABS: ABG Base Excess 5.3 mmol/L; ABG HCO3 29 mmol/L (21-25); ABG Oxygen Saturation 98.7 % (94-97); ABG PCO2 38 mmHg (35-45); ABG PH 7.48 (7.35-7.45); ABG PO2 98 mmHg (83-108); ABG TCO2 30 mmol/L (19-24)
[2017-06-17] MEDS: SODIUM CHLORIDE 0.45% 1,000 ML IV SCH (05:16)
[2017-06-17 06:07] LABS: Glucose,Whole Blood 114 mg/dL (75-99)
--- NOTE | 2017-06-17 06:54 | XR ---
EXAMINATION TYPE: XR chest 1V portable DATE OF EXAM: 06/17/2017 HISTORY: post op CABG. REFERENCE: Previous study dated 06/16/2017. FINDINGS: There is a tracheostomy tube in place. Its tip overlies the tracheal air column in this sin gle frontal projection. There has been a midline sternotomy. The heart is enlarged. There is left basilar airspace disease. There is a left-sided effusion. There is vascular congestion. The overall appearance has worsened slightly. IMPRESSION: 1. WORSENING LEFT BASILAR AIRSPACE DISEASE. 2. MODERATE LEFT-SIDED EFFUSION. 3. WORSENING CHANGES OF CONGESTIVE HEART FAILURE.
[2017-06-17 07:03] LABS: Glucose,Whole Blood 121 mg/dL (75-99)
--- NOTE | 2017-06-17 07:14 | P.PN ---
Subjective Progress Note Date: 06/17/17 Principal diagnosis: Status post four-vessel bypass grafting, respiratory failure Progress note dated 06/11/2017 This is a 66-year-old female with acute hypoxemic respiratory failure status post four-vessel bypass grafting, postop day #9. The patient had a history of acute cardiac arrest and was resuscitated successfully. She was intubated and placed on mechanical ventilator. She is postop day #9 status post four-vessel bypass grafting. Upper this point, the patient has not really had any major or significant weaning towards extubation. She does have a history of COPD with an FEV1 at 76% of predicted suggesting moderate disease. In addition, the patient has history of sleep apnea syndrome obesity CAD pneumonia hyperlipidemia hypertension right breast cancer with previous lumpectomy and lymph node dissection gastroesophageal reflux disease diabetes mellitus anemia and left lower lobe pneumonia secondary to Enterobacter cloacae. Currently, the chest x-ray shows either consolidation or effusion in the left lower lobe. The patient is on the ventilator with the assist control mode rate of 18 tidal volume of 500 FiO2 50% and PEEP of 5. Blood gases show a PaO2 of 69 a PaCO2 34 and pH 7.52. The patient is receiving saline IV at 70 mL an hour , propofol at 25 mics per kilogram per minute Primacor 0.125 mcg/kg/m insulin drip which is currently on hold and vital high protein tube feeds at 54 with a goal of 54 mL an hour. We will attempt a daily eruption of sedation on her and see whether or not she would tolerate a spontaneous breathing trial. I did make some vent changes dropping the volume down to 400 and increasing the rate to 28. Her spontaneous rate was about 28. She was admitted on May 28 and had her four- vessel bypass grafting on June 02. Her hospitalization was been uncomplicated by atrial fibrillation with rapid ventricular response. Progress note dated 06/12/2017 This is a 66-year-old female with acute hypoxemic respiratory failure status post four-vessel bypass grafting, postop day #10. The patient had a history of acute cardiac arrest and was resuscitated successfully. She was intubated and placed on mechanical ventilator. She is postop day #9 status post four-vessel bypass grafting. Upper this point, the patient has not really had any major or significant weaning towards extubation. She does have a history of COPD with an FEV1 at 76% of predicted suggesting moderate disease. In addition, the patient has history of sleep apnea syndrome obesity CAD pneumonia hyperlipidemia hypertension right breast cancer with previous lumpectomy and lymph node dissection gastroesophageal reflux disease diabetes mellitus anemia and left lower lobe pneumonia secondary to Enterobacter cloacae. Currently, the chest x-ray shows either consolidation or effusion in the left lower lobe. The patient is on the ventilator with the assist control mode rate of 28 tidal volume of 400 FiO2 50% and PEEP of 10. Blood gases show a PaO2 of 79 a PaCO2 36 and pH 7.47. The patient is receiving saline IV at 70 mL an hour , propofol at 25 mics per kilogram per minute Primacor 0.125 mcg/kg/m insulin drip which is currently on hold and vital high protein tube feeds at 54 with a goal of 54 mL an hour. We will attempt a daily interuption of sedation on her and see whether or not she would tolerate a spontaneous breathing trial. I did make some vent changes dropping the volume down to 400 and increasing the rate to 28. Her spontaneous rate was about 28. She was admitted on May 28 and had her four-vessel bypass grafting on June 02. Her hospitalization was been uncomplicated by atrial fibrillation with rapid ventricular response. The patient did spend about 1-1/2 hours on PSV 10 and CPAP of 5 yesterday. Unfortunately, the weaning trial was aborted because of high respiratory rate in atrial fibrillation with RVR. She is likely to be having a tracheostomy sometime this week. Again we will attempt PSV and CPAP sometime today. Prognosis on my opinion is not good for successful weaning and this patient. Progress note dated 06/13/2017 66-year-old female with a history of acute hypoxemic respiratory failure, status post four-vessel bypass grafting, postop day #11. The patient has a history of acute cardiac arrest and was resuscitated successfully. She was intubated and placed on mechanical ventilator. She is postop day 11 status post four-vessel bypass grafting. Up to this point, the patient has not really had any major significant weaning towards extubation. Will be due stop her sedation, she becomes very tachypneic and dyspneic. She also becomes very tachycardic with A. fib and RVR. She does have history of COPD with an FEV1 at 76% of predicted suggesting mild/moderate COPD. In addition, she suffers from sleep apnea syndrome obesity CAD pneumonia hyperlipidemia hypertension right breast cancer with previous lumpectomy and lymph node dissection GERD diabetes mellitus anemia left lower lobe pneumonia secondary to Enterobacter cloaca. Currently, chest x-ray continues to show a patchy infiltrate or effusion at the left lung base. There also may be some atelectasis at the left lung base. Currently she is on the assist control mode rate of 28 tidal volume 400 FiO2 50 % and PEEP of 10. With those settings, her PaO2 of 78 pCO2 was 37 and pH 7.49. She is currently on propofol at 30 mics per kilogram per minute insulin drip which is currently on hold lactated Ringer's IV at 20 mL an hour and vital high protein tube feeds at 54 mL per hour with a goal of 54 mL per hour. Today we will try a daily interuption of sedation on both pressure support and CPAP. She is apparently scheduled for a trach and PEG tomorrow by Dr. Lujan on June 14 Over the last 3 or 4 days and I been seeing her, the patient really has made no significant progress towards extubation. Progress note dated 06/15/2017 66-year-old female with history of acute hypoxemic respiratory failure, status post four-vessel bypass grafting, postoperative day #13. The patient has a history of acute cardiac arrest and was resuscitated successfully. She was intubated and placed on mechanical ventilator. She is postop day #13. She is status post four-vessel bypass grafting. She did have a trach and PEG performed on June 14. Up to this point, will be attempted weaning and extubation, she became very to Dyspneic and tachycardic. We also had problems with atrial fibrillation with RVR. The patient has a history of mild to moderate COPD with an FEV1 of 76% of predicted in addition, she suffers from sleep apnea syndrome obesity CAD pneumonia hyperlipidemia hypertension right breast cancer with previous lumpectomy and lymph node dissection GERD diabetes mellitus anemia left lower lobe pneumonia secondary to Enterobacter cloacae. Today we will try a spontaneous breathing trial. She's currently in no sedation. Her current vent settings include the assist control mode rate of 28 , tidal volume 400, FiO2 50% and a PEEP of 10 to be dropped down to 8. Arterial blood gases show a PaO2 of 97 a pCO2 of 36 and pH of 7.49. Her IVs include saline at 75 mL an hour propofol which is off insulin drip which is often tube feeds which are on hold until later today. Again the tracheostomy and PEG tube placement were done yesterday afternoon. Later today, we will drop the PEEP down from 8 to 5. Progress note dated 06/16/2017 66-year-old female with a history of acute hypoxemic respiratory failure, status post four-vessel bypass grafting, postoperative day #14. The patient has a history of acute cardiac arrest and was resuscitated successfully. She was intubated and placed on mechanical ventilator. Again she is postop day # 14. She status post four-vessel bypass grafting. She had a trach and PEG performed on June 14. Up to this point, weaning has not been very good and attempts at extubation have been poor. She becomes very dyspneic and tachypneic and develops tachycardia. We will also had problems in the past with atrial fibrillation and rapid ventricular response. She does have mild to moderate COPD with an FEV1 that's 76% of predicted. In addition, she suffers from sleep apnea syndrome, obesity, CAD, pneumonia, hyperlipidemia, hypertension , right breast cancer, previous lumpectomy, GERD, diabetes mellitus, anemia, left lower lobe pneumonia. Currently, the patient is on the assist control mode rate of 28 tidal volume 400 FiO2 of 50% and PEEP of 5. Arterial blood gases show a PaO2 of 75 a PaCO2 37 and a pH of 7.47. She's getting half-normal saline IV at 75 mL an hour and insulin drip at 6.5 units an hour and tube feeds with vital 1.2 at 56 with a goal of 56. Again trach and PEG were done on the . Chest x-ray shows either consolidation or effusion/infiltrate at the left lung base. This been present for a number of days. She had a CT of the brain done on June 10. That was negative. All sedatives have been helpful. She's currently placed on pressure support of 10 CPAP of 5. I've given the respiratory therapist instructions on how to proceed. Progress note dated 06/17/2017 66-year-old female with history of acute hypoxemic respiratory failure, status post four-vessel bypass grafting, postoperative day #15. The patient did have a postoperative acute cardiopulmonary arrest and was resuscitated successfully. She was intubated and placed on the mechanical ventilator. She had a PEG and trach performed on June 14. Yesterday, she spent the better part of the day on pressure support of 10 and CPAP of 5. In addition, she has a history of atrial fibrillation with RVR and mild to moderate COPD with an FEV1 that's 76% of predicted sleep apnea syndrome CAD pneumonia hyperlipidemia hypertension right breast cancer with previous lumpectomy good diabetes mellitus anemia left lower lobe pneumonia. Currently, the patient's on the assist control mode rate of 28, tidal volume 400 FiO2 50% PEEP of 5. The patient's on an insulin drip of 5 units an hour saline at 75 mL an hour and vital high protein at 30 with a goal of 30. Arterial blood gases show a PaO2 of 98 PaCO2 of 38 and pH 7.4. The patient's much more awake and alert. We did discontinue most of her medications and sedatives. White count of 6.7 in room 7.9 hematocrit 27.1 platelet count 157,000. Sodium 150 potassium 4 chloride 114 CO2 28 BUN and creatinine 41 and 0.7. Chest x-rays reviewed. Additional dense consolidation of the left base and worsening changes of heart failure. Objective - Vital Signs Vital signs: Vital Signs Temp 98 F 06/17/17 04:00 Pulse 75 06/17/17 06:00 Resp 28 H 06/17/17 06:00 BP 145/63 06/17/17 06:00 Pulse Ox 98 06/17/17 06:00 Intake & Output 06/16/17 06/17/17 06/17/17 18:59 06:59 18:59 Intake Total 1441.519 7080.6 Output Total 2760 1070 Balance -1137.000 437.6 Weight 122.5 kg Intake: IV 936 961 0.9 for pressure 36 36 Meropenem 1 gm In Sodium 100 Chloride 0.9% 100 ml @ 200 mls/hr IVPB Q8HR [facility] Rx#:[id number] Sodium Chloride 0.45% 1, 900 825 000 ml @ 75 mls/hr IV . [id number] [facility] Rx#:[id number] Intake, IV Titration 101.000 26.6 Amount Insulin Regular 100 unit 101.000 26.6 In Sodium Chloride 0.9% 100 ml @ Per Protocol IV .Q0M [facility] Rx#:[id number] Oral 70 Tube Feeding 586 360 Other 90 Output: Drainage 620 360 Right Lower Medial Calf 620 360 Urine 2140 710 Other: Voiding Method Indwelling Catheter Indwelling Catheter # Voids 1 ABP, PAP, CO, CI - Last Documented Arterial Blood Pressure 145/71 Pulmonary Artery Pressure 33/21 Cardiac Output 5 Cardiac Index 2.4 - Exam No acute distress, the patient is currently not on any sedation, has a fresh tracheostomy tube, and a PEG tube. HEENT examination is grossly unremarkable. Mucous membranes are moist. Neck supple. Full range of motion. No adenopathy. Cardiovascular examination reveals a regular rhythm rate. Heart rate about 85 bpm. Lungs reveal some diffuse rhonchi. Breath sounds are diminished. No wheezes. Abdomen soft bowel sounds are heard. Extremities are intact. No cyanosis clubbing or edema. Skin without rash. Neurologic examination is difficult to assess. She does seem to respond to verbal stimuli and seems much more alert today. - Labs CBC & Chem 7: 06/17/17 04:00 06/17/17 04:00 Labs: Abnormal Lab Results - Last 24 Hours (Table) 06/16/17 06/16/17 06/16/17 Range/Units 04:03 08:35 10:26 RBC (3.80-5.40) m/uL Hgb (11.4-16.0) gm/dL Hct (34.0-46.0) % MCHC (31.0-37.0) g/dL RDW (11.5-15.5) % Lymphocytes # (1.0-4.8) k/uL ABG pH (7.35-7.45) ABG HCO3 (21-25) mmol/L ABG Total CO2 (19-24) mmol/L ABG O2 Saturation (94-97) % Sodium (137-145) mmol/L Chloride (98-107) mmol/L BUN (7-17) mg/dL Glucose (74-99) mg/dL POC Glucose (mg/dL) 164 H 162 H (75-99) mg/dL Magnesium 3.0 H (1.6-2.3) mg/dL Total Bilirubin (0.2-1.3) mg/dL Total Protein (6.3-8.2) g/dL Albumin (3.5-5.0) g/dL 06/16/17 06/16/17 06/16/17 Range/Units 12:14 14:40 18:04 RBC (3.80-5.40) m/uL Hgb (11.4-16.0) gm/dL Hct (34.0-46.0) % MCHC (31.0-37.0) g/dL RDW (11.5-15.5) % Lymphocytes # (1.0-4.8) k/uL ABG pH (7.35-7.45) ABG HCO3 (21-25) mmol/L ABG Total CO2 (19-24) mmol/L ABG O2 Saturation (94-97) % Sodium (137-145) mmol/L Chloride (98-107) mmol/L BUN (7-17) mg/dL Glucose (74-99) mg/dL POC Glucose (mg/dL) 152 H 163 H 147 H (75-99) mg/dL Magnesium (1.6-2.3) mg/dL Total Bilirubin (0.2-1.3) mg/dL Total Protein (6.3-8.2) g/dL Albumin (3.5-5.0) g/dL 06/16/17 06/16/17 06/16/17 Range/Units 19:46 21:57 22:50 RBC (3.80-5.40) m/uL Hgb (11.4-16.0) gm/dL Hct (34.0-46.0) % MCHC (31.0-37.0) g/dL RDW (11.5-15.5) % Lymphocytes # (1.0-4.8) k/uL ABG pH (7.35-7.45) ABG HCO3 (21-25) mmol/L ABG Total CO2 (19-24) mmol/L ABG O2 Saturation (94-97) % Sodium (137-145) mmol/L Chloride (98-107) mmol/L BUN (7-17) mg/dL Glucose (74-99) mg/dL POC Glucose (mg/dL) 135 H 112 H 111 H (75-99) mg/dL Magnesium (1.6-2.3) mg/dL Total Bilirubin (0.2-1.3) mg/dL Total Protein (6.3-8.2) g/dL Albumin (3.5-5.0) g/dL 06/16/17 06/17/17 06/17/17 Range/Units 23:52 00:49 01:58 RBC (3.80-5.40) m/uL Hgb (11.4-16.0) gm/dL Hct (34.0-46.0) % MCHC (31.0-37.0) g/dL RDW (11.5-15.5) % Lymphocytes # (1.0-4.8) k/uL ABG pH (7.35-7.45) ABG HCO3 (21-25) mmol/L ABG Total CO2 (19-24) mmol/L ABG O2 Saturation (94-97) % Sodium (137-145) mmol/L Chloride (98-107) mmol/L BUN (7-17) mg/dL Glucose (74-99) mg/dL POC Glucose (mg/dL) 114 H 118 H 119 H (75-99) mg/dL Magnesium (1.6-2.3) mg/dL Total Bilirubin (0.2-1.3) mg/dL Total Protein (6.3-8.2) g/dL Albumin (3.5-5.0) g/dL 06/17/17 06/17/17 06/17/17 Range/Units 03:21 04:00 04:00 RBC 2.86 L (3.80-5.40) m/uL Hgb 7.9 L (11.4-16.0) gm/dL Hct 27.1 L (34.0-46.0) % MCHC 29.3 L (31.0-37.0) g/dL RDW 19.1 H (11.5-15.5) % Lymphocytes # 0.5 L (1.0-4.8) k/uL ABG pH (7.35-7.45) ABG HCO3 (21-25) mmol/L ABG Total CO2 (19-24) mmol/L ABG O2 Saturation (94-97) % Sodium 150 H (137-145) mmol/L Chloride 114 H (98-107) mmol/L BUN 41 H (7-17) mg/dL Glucose 112 H (74-99) mg/dL POC Glucose (mg/dL) 123 H (75-99) mg/dL Magnesium 2.7 H (1.6-2.3) mg/dL Total Bilirubin 1.5 H (0.2-1.3) mg/dL Total Protein 5.5 L (6.3-8.2) g/dL Albumin 2.4 L (3.5-5.0) g/dL 06/17/17 06/17/17 06/17/17 Range/Units 05:06 05:12 06:06 RBC (3.80-5.40) m/uL Hgb (11.4-16.0) gm/dL Hct (34.0-46.0) % MCHC (31.0-37.0) g/dL RDW (11.5-15.5) % Lymphocytes # (1.0-4.8) k/uL ABG pH 7.48 H (7.35-7.45) ABG HCO3 29 H (21-25) mmol/L ABG Total CO2 30 H (19-24) mmol/L ABG O2 Saturation 98.7 H (94-97) % Sodium (137-145) mmol/L Chloride (98-107) mmol/L BUN (7-17) mg/dL Glucose (74-99) mg/dL POC Glucose (mg/dL) 109 H 114 H (75-99) mg/dL Magnesium (1.6-2.3) mg/dL Total Bilirubin (0.2-1.3) mg/dL Total Protein (6.3-8.2) g/dL Albumin (3.5-5.0) g/dL 06/17/17 Range/Units 07:01 RBC (3.80-5.40) m/uL Hgb (11.4-16.0) gm/dL Hct (34.0-46.0) % MCHC (31.0-37.0) g/dL RDW (11.5-15.5) % Lymphocytes # (1.0-4.8) k/uL ABG pH (7.35-7.45) ABG HCO3 (21-25) mmol/L ABG Total CO2 (19-24) mmol/L ABG O2 Saturation (94-97) % Sodium (137-145) mmol/L Chloride (98-107) mmol/L BUN (7-17) mg/dL Glucose (74-99) mg/dL POC Glucose (mg/dL) 121 H (75-99) mg/dL Magnesium (1.6-2.3) mg/dL Total Bilirubin (0.2-1.3) mg/dL Total Protein (6.3-8.2) g/dL Albumin (3.5-5.0) g/dL Microbiology - Last 24 Hours (Table) 06/12/17 14:53 Blood Culture - Preliminary Blood No Growth after 96 hours Assessment and Plan Assessment: Assessment Hypoxemic respiratory failure status post acute cardiopulmonary arrest requiring intubation and mechanical ventilation and successful resuscitation, now, with failure to wean. Ischemia induced ventricular fibrillation Severe multivessel coronary disease, status post four-vessel bypass grafting, postoperative day #15 Status post tracheostomy and PEG tube placement, postoperative day #3 Mental status changes, of unclear etiology. Patient had a negative computed tomography scan of the brain on June 10. All sedatives and hypnotics have been stopped. This could represent metabolic or anoxic encephalopathy. Mild/moderate COPD Sleep apnea syndrome, severe Obesity Coronary disease, with previous stenting Recent hospitalization at [facility] for right lower lobe pneumonia History of right breast cancer with lumpectomy and lymph node dissection GERD Diabetes mellitus Anemia Enterobacter cloacae left lower lobe pneumonia Plan: Plan dated 06/11/2017 The patient will have a weaning trial. The patient has a significant respiratory and metabolic alkalosis which will be a hindrance towards weaning. We'll change tidal volume from 500 down to 400. We'll increase the rate from 18 to 28. We'll try to deal with alkalosis. Additional recommendations and suggestions are forthcoming. Prognosis is guarded. If the patient is stable, we'll do a spontaneous breathing trial. Meds labs x-rays are all reviewed. Chest x-ray shows either consolidation or left-sided pleural effusion. Critical care time is 36 minutes Plan dated 06/12/2017 The patient had a very brief weaning trial yesterday. Unfortunately, atrial fibrillation with rapid ventricular response and a high respiratory rate up into the 40s prevented a longer weaning trial. I suspect that the patient will need a tracheostomy. I think is being planned for sometime this week. She really hasn't done very well. Off of all sedation, her mental status is poor. Her chest x-rays recently stable with a consolidation small effusion in the left base. Her medications labs and x-rays are all reviewed. She continues to be a full code. Prognosis is guarded. Additional recommendations and suggestions are forthcoming. Plan dated 06/13/2017 The patient is going to have a daily interuption of sedation and a weaning trial. I do not suspect that she will do well. Nonetheless, she is scheduled for a tracheostomy and possible PEG tube placement tomorrow. [facility] like [facility] if she cannot be weaned. Currently, she is on propofol at 30 mics per kilogram per minute insulin drip is on hold lactated Ringer's IV at 20 mL an hour and vital high protein tube feeds. Blood gases are reasonable. Additional recommendations and suggestions are forthcoming. Critical care time is 34 minutes. Plan dated 06/15/2017 The patient did have a PEG tube placement and tracheostomy tube placement yesterday. They're postop day #1. 2 feedings be started later today. Vent settings are appropriate. The patient is off of sedation. We'll attempt a spontaneous breathing trial today. Chest x-ray still shows a dense consolidation in the left lower lobe which probably represents atelectasis/ pneumonia/fluid. The right lung is clear. Additional recommendations injections are forthcoming. We'll continue to follow. Prognosis is guarded. Critical care time 35 minutes. Plan dated 06/16/2017 The patient did have a PEG tube placement and tracheostomy tube placement on June 14. Today's postop day #2. She will be placed on PSV 10 CPAP of 5. All sedatives and hypnotics have been discontinued including the Seroquel. The patient will have a PSV/CPAP trial today. Labs x-rays a medications are all reviewed. He remains on an insulin drip at 6.5 units an hour. She is being nourished with vital 1.2 at 56 which is goal. Arterial blood gases are excellent. Mental status is still a concern. Critical care time 34 minutes Plan dated 06/17/2017 The patient is postop day #3 status post PEG tube placement and tracheostomy tube placement. She will placed on PSV 10 CPAP of 5 later this morning. All her sedatives have been discontinued. Labs are reviewed. We will change her 0.9 at 75 an hour to D5W at 75 mL an hour. We'll keep increase her water flushes to 200 every 6 because of her hypernatremia. Additional recommendations and suggestions are forthcoming. Prognosis is guarded. We'll continue to push forward with weaning. Mental status is improved this morning. Sputum from 06/12, continues to show Enterobacter cloacae. Time with Patient: Greater than 30
[2017-06-17] MEDS ORDERED: DEXTROSE 5%-0.2% NACL 1,000 ML IV SCH (07:15)
[2017-06-17] MEDS: BUDESONIDE 1 MG/2 ML NEBU INHALATION SCH ×2 (07:32→19:59)
[2017-06-17] MEDS: METOPROLOL TARTRATE 50 MG TAB PO SCH ×2 (08:14→20:03)
[2017-06-17] MEDS: FERROUS SULFATE ORAL ELIXIR 300 MG/5 ML CUP OG-TUBE SCH ×2 (08:14→16:56)
[2017-06-17] MEDS: POTASSIUM BICARBONATE/CIT AC 20 MEQ TABLET.EFF PO SCH (08:14)
[2017-06-17] MEDS: CHLORHEXIDINE GLUCONATE 15 ML CUP MUCOUS MEM SCH ×2 (08:14→20:03)
[2017-06-17] MEDS: PANTOPRAZOLE 40 MG/10 ML VIAL IVP SCH (08:14)
[2017-06-17] MEDS: APIXABAN 5 MG TAB PEG/G-TUBE SCH ×2 (08:14→20:02)
[2017-06-17] MEDS: AMIODARONE 200 MG TAB PO SCH (08:15)
[2017-06-17] MEDS: DIGOXIN 125 MCG TAB OG-TUBE SCH (08:15)
[2017-06-17] MEDS: ASPIRIN 81 MG PO SCH (08:15)
[2017-06-17] MEDS: ASCORBIC ACID 500 MG TAB PO SCH ×2 (08:16→20:03)
[2017-06-17] MEDS: ATORVASTATIN 40 MG TAB PO SCH (08:16)
[2017-06-17] MEDS: MEROPENEM 1 GM in SODIUM CHLORIDE 0.9% 100 ML IVPB SCH ×5 (08:24→23:10)
[2017-06-17] MEDS ORDERED: LISINOPRIL 2.5 MG TAB PEG/G-TUBE SCH ×2 (09:00→13:00)
--- NOTE | 2017-06-17 09:24 | P.PN ---
Subjective Progress Note Date: 06/17/17 Principal diagnosis: Multivessel coronary artery disease, status post ventricular fibrillation arrest , history of hypertension, hyperlipidemia, insulin dependent diabetes mellitus with preoperative hemoglobin A1c 9.4%, non-ST elevation myocardial infarction this admission and history of previous myocardial infarction with stent placement to the RCA in 2010, preserved left ventricular function with preoperative ejection fraction of 50-55%, mild mitral valve regurgitation, obesity, obstructive sleep apnea, recent pneumonia in March 2017, previous tobacco dependence, right breast cancer with lumpectomy and radiation, chronic obstructive pulmonary disease with preoperative FEV1 of 76% of predicted and preoperative arterial blood gas pH 7.46, pCO2 40, pO2 68, HCO3 28, GERD and family history of premature coronary artery disease. POD #15 coronary artery bypass grafting 4 using the left internal mammary artery to the left anterior descending coronary artery, a reverse greater saphenous vein graft from the aorta to the distal posterior descending coronary artery, a reverse greater saphenous vein graft from the aorta to the ramus intermedius coronary artery, a reverse greater saphenous vein graft from the aorta to the second diagonal coronary artery. Endoscopic harvesting of the right greater saphenous vein. Intraoperative transesophageal echocardiogram and epi-aortic scanning. Intraoperative graft flow measurement using the [employer] system. Status post preoperative acute cardiac arrest with ventricular fibrillation arrest with successful resuscitation. Postoperative prolonged mechanical ventilation secondary to hemodynamic instability and acute hypoxic respiratory failure, an unexpected but potential outcome of surgery. Postoperative atrial fibrillation, an unexpected but potential outcome of surgery. POD #11 bronchoscopy per pulmonology, bronchial washings positive for Enterobacter cloacae. Postoperative acute blood loss anemia, a potential outcome of surgery. The patient is currently sitting up to the bedside cardiac chair. She is in no acute distress. She is hemodynamically stable. She remains midline tracheostomy and mechanical ventilator support. Her sedation remains on hold, she is following simple verbal commands and moving all 4 extremities with weak movements. She is shaking her head yes and no appropriately to questions. She is currently on a CPAP trial with her mechanical ventilator. Objective - Vital Signs Vital signs: Vital Signs Temp 99.0 F 06/17/17 08:00 Pulse 80 06/17/17 09:00 Resp 25 H 06/17/17 09:00 BP 147/66 06/17/17 09:00 Pulse Ox 98 06/17/17 09:00 Intake & Output 06/16/17 06/17/17 06/17/17 18:59 06:59 18:59 Intake Total 9726.086 2803.6 324 Output Total 2760 1070 280 Balance -1137.000 437.6 44 Weight 122.5 kg Intake: IV 936 961 234 0.9 for pressure 36 36 9 Meropenem 1 gm In Sodium 100 Chloride 0.9% 100 ml @ 200 mls/hr IVPB Q8HR [facility] Rx#:[id number] Sodium Chloride 0.45% 1, 900 825 225 000 ml @ 75 mls/hr IV . [id number] [facility] Rx#:[id number] Intake, IV Titration 101.000 26.6 Amount Insulin Regular 100 unit 101.000 26.6 In Sodium Chloride 0.9% 100 ml @ Per Protocol IV .Q0M [facility] Rx#:[id number] Oral 70 Tube Feeding 586 360 90 Other 90 Output: Drainage 620 360 100 Right Lower Medial Calf 620 360 100 Urine 2140 710 180 Other: Voiding Method Indwelling Catheter Indwelling Catheter # Voids 1 ABP, PAP, CO, CI - Last Documented Arterial Blood Pressure 173/78 Pulmonary Artery Pressure 33/21 Cardiac Output 5 Cardiac Index 2.4 - Constitutional General appearance: Present: cooperative, no acute distress, obese - EENT ENT: Present: hearing grossly normal - Neck Details: No JVD, no lymphadenopathy. Neck is supple. - Respiratory Details: Lungs sounds essentially clear throughout, diminished bilateral bases left greater than right. Respirations are symmetrical and nonlabored. Oxygen saturation are 98% with mechanical ventilator support. #8 Shiley trach midline and secured in place. Mechanical ventilator settings are as follows: CPAP 5, pressure support 10, FiO2 50%. ABG results this morning 7.48/38/98/29/5.3/98.7% on current ventilator settings. - Cardiovascular Details: Regular rhythm and rate. S1 and S2 present, negative for S3, gallop or murmur. Sternum is stable. Bedside telemetry showing normal sinus rhythm heart rate 84. Heart hugger is in place although unable to demonstrate appropriate use due to her generalized weakness. Knee-high DIVINE hose and sequential compression devices in place to her bilateral lower extremities. Generalized +1 edema. Left brachial PICC line in place and functioning. Left radial A-line in place and functioning. - Gastrointestinal Gastrointestinal Comment(s): Abdomen is soft, nontender and nondistended. Active bowel sounds to all 4 abdominal quadrants. PEG tube in place and functioning with vital high-protein 1.0-calorie infusing at 40 mL per hour with automatic water flushes at 200 mL every 6 hours. Last bowel movement on 06/15/2017. - Genitourinary Genitourinary Comment(s): Lea catheter for accurate I&O. Draining clear nithin urine with sediment. Adequate urine output, 485 mL output in the last 8 hours. Received 40 mg of Lasix yesterday and diuresed 1490 mL. - Integumentary Integumentary Comment(s): Skin is warm and dry. No clubbing or cyanosis. Midline sternal incision clean dry and well approximated. No redness or drainage present. Dermabond dressing clean and dry. Right lower extremity EVH site clean dry and approximated. Scant serous drainage. Right lower leg DREW drain remains in place evacuating thin serous drainage. 260 mL output in the last 8 hours from the DREW drain. - Neurologic Neurologic Comment(s): The patient is nodding her head to yes and no questions appropriately. Sedation continues to be on hold. She is moving all 4 extremities with weak movements appropriately to verbal stimuli. - Musculoskeletal Musculoskeletal: Present: generalized weakness, strength equal bilaterally - Allied health notes Allied health notes reviewed: nursing - Labs CBC & Chem 7: 06/17/17 04:00 06/17/17 04:00 Labs: Abnormal Lab Results - Last 24 Hours (Table) 06/16/17 06/16/17 06/16/17 Range/Units 04:03 10:26 12:14 RBC (3.80-5.40) m/uL Hgb (11.4-16.0) gm/dL Hct (34.0-46.0) % MCHC (31.0-37.0) g/dL RDW (11.5-15.5) % Lymphocytes # (1.0-4.8) k/uL ABG pH (7.35-7.45) ABG HCO3 (21-25) mmol/L ABG Total CO2 (19-24) mmol/L ABG O2 Saturation (94-97) % Sodium (137-145) mmol/L Chloride (98-107) mmol/L BUN (7-17) mg/dL Glucose (74-99) mg/dL POC Glucose (mg/dL) 162 H 152 H (75-99) mg/dL Magnesium 3.0 H (1.6-2.3) mg/dL Total Bilirubin (0.2-1.3) mg/dL Total Protein (6.3-8.2) g/dL Albumin (3.5-5.0) g/dL 06/16/17 06/16/17 06/16/17 Range/Units 14:40 18:04 19:46 RBC (3.80-5.40) m/uL Hgb (11.4-16.0) gm/dL Hct (34.0-46.0) % MCHC (31.0-37.0) g/dL RDW (11.5-15.5) % Lymphocytes # (1.0-4.8) k/uL ABG pH (7.35-7.45) ABG HCO3 (21-25) mmol/L ABG Total CO2 (19-24) mmol/L ABG O2 Saturation (94-97) % Sodium (137-145) mmol/L Chloride (98-107) mmol/L BUN (7-17) mg/dL Glucose (74-99) mg/dL POC Glucose (mg/dL) 163 H 147 H 135 H (75-99) mg/dL Magnesium (1.6-2.3) mg/dL Total Bilirubin (0.2-1.3) mg/dL Total Protein (6.3-8.2) g/dL Albumin (3.5-5.0) g/dL 06/16/17 06/16/17 06/16/17 Range/Units 21:57 22:50 23:52 RBC (3.80-5.40) m/uL Hgb (11.4-16.0) gm/dL Hct (34.0-46.0) % MCHC (31.0-37.0) g/dL RDW (11.5-15.5) % Lymphocytes # (1.0-4.8) k/uL ABG pH (7.35-7.45) ABG HCO3 (21-25) mmol/L ABG Total CO2 (19-24) mmol/L ABG O2 Saturation (94-97) % Sodium (137-145) mmol/L Chloride (98-107) mmol/L BUN (7-17) mg/dL Glucose (74-99) mg/dL POC Glucose (mg/dL) 112 H 111 H 114 H (75-99) mg/dL Magnesium (1.6-2.3) mg/dL Total Bilirubin (0.2-1.3) mg/dL Total Protein (6.3-8.2) g/dL Albumin (3.5-5.0) g/dL 06/17/17 06/17/17 06/17/17 Range/Units 00:49 01:58 03:21 RBC (3.80-5.40) m/uL Hgb (11.4-16.0) gm/dL Hct (34.0-46.0) % MCHC (31.0-37.0) g/dL RDW (11.5-15.5) % Lymphocytes # (1.0-4.8) k/uL ABG pH (7.35-7.45) ABG HCO3 (21-25) mmol/L ABG Total CO2 (19-24) mmol/L ABG O2 Saturation (94-97) % Sodium (137-145) mmol/L Chloride (98-107) mmol/L BUN (7-17) mg/dL Glucose (74-99) mg/dL POC Glucose (mg/dL) 118 H 119 H 123 H (75-99) mg/dL Magnesium (1.6-2.3) mg/dL Total Bilirubin (0.2-1.3) mg/dL Total Protein (6.3-8.2) g/dL Albumin (3.5-5.0) g/dL 06/17/17 06/17/17 06/17/17 Range/Units 04:00 04:00 05:06 RBC 2.86 L (3.80-5.40) m/uL Hgb 7.9 L (11.4-16.0) gm/dL Hct 27.1 L (34.0-46.0) % MCHC 29.3 L (31.0-37.0) g/dL RDW 19.1 H (11.5-15.5) % Lymphocytes # 0.5 L (1.0-4.8) k/uL ABG pH (7.35-7.45) ABG HCO3 (21-25) mmol/L ABG Total CO2 (19-24) mmol/L ABG O2 Saturation (94-97) % Sodium 150 H (137-145) mmol/L Chloride 114 H (98-107) mmol/L BUN 41 H (7-17) mg/dL Glucose 112 H (74-99) mg/dL POC Glucose (mg/dL) 109 H (75-99) mg/dL Magnesium 2.7 H (1.6-2.3) mg/dL Total Bilirubin 1.5 H (0.2-1.3) mg/dL Total Protein 5.5 L (6.3-8.2) g/dL Albumin 2.4 L (3.5-5.0) g/dL 06/17/17 06/17/17 06/17/17 Range/Units 05:12 06:06 07:01 RBC (3.80-5.40) m/uL Hgb (11.4-16.0) gm/dL Hct (34.0-46.0) % MCHC (31.0-37.0) g/dL RDW (11.5-15.5) % Lymphocytes # (1.0-4.8) k/uL ABG pH 7.48 H (7.35-7.45) ABG HCO3 29 H (21-25) mmol/L ABG Total CO2 30 H (19-24) mmol/L ABG O2 Saturation 98.7 H (94-97) % Sodium (137-145) mmol/L Chloride (98-107) mmol/L BUN (7-17) mg/dL Glucose (74-99) mg/dL POC Glucose (mg/dL) 114 H 121 H (75-99) mg/dL Magnesium (1.6-2.3) mg/dL Total Bilirubin (0.2-1.3) mg/dL Total Protein (6.3-8.2) g/dL Albumin (3.5-5.0) g/dL Microbiology - Last 24 Hours (Table) 06/12/17 14:53 Blood Culture - Preliminary Blood No Growth after 96 hours - Imaging and Cardiology Chest x-ray: report reviewed, image reviewed Assessment and Plan (1) History of right breast cancer Current Visit: Yes Status: Acute Code(s): Z85.3 - PERSONAL HISTORY OF MALIGNANT NEOPLASM OF BREAST SNOMED Code(s): 528756157 (2) Non-STEMI (non-ST elevated myocardial infarction) Current Visit: Yes Status: Acute Code(s): I21.4 - NON-ST ELEVATION (NSTEMI) MYOCARDIAL INFARCTION SNOMED Code(s): 483315181 (3) Diabetes mellitus Current Visit: Yes Status: Chronic Code(s): E11.9 - TYPE 2 DIABETES MELLITUS WITHOUT COMPLICATIONS SNOMED Code(s): 23314895 (4) Family history of premature coronary artery disease Current Visit: Yes Status: Chronic Code(s): Z82.49 - FAMILY HX OF ISCHEM HEART DIS AND OTH DIS OF THE CIRC SYS SNOMED Code(s): 913844057 (5) History of heart artery stent Current Visit: Yes Status: Chronic Code(s): Z95.5 - PRESENCE OF CORONARY ANGIOPLASTY IMPLANT AND GRAFT SNOMED Code(s): 701575046 (6) Hyperlipidemia Current Visit: Yes Status: Chronic Code(s): E78.5 - HYPERLIPIDEMIA, UNSPECIFIED SNOMED Code(s): 08096298 (7) Hypertension Current Visit: Yes Status: Chronic Code(s): I10 - ESSENTIAL (PRIMARY) HYPERTENSION SNOMED Code(s): 66646258 (8) Morbid obesity with BMI of 40.0-44.9, adult Current Visit: Yes Status: Chronic Code(s): E66.01 - MORBID (SEVERE) OBESITY DUE TO EXCESS CALORIES; Z68.41 - BODY MASS INDEX (BMI) 40.0-44.9, ADULT SNOMED Code(s): 760183367 (9) History of sudden cardiac arrest successfully resuscitated Current Visit: Yes Status: Acute Code(s): Z86.74 - PERSONAL HISTORY OF SUDDEN CARDIAC ARREST SNOMED Code(s): 521924156 Plan: 1. Continue low dose aspirin, statin, metoprolol 100 mg per PEG tube twice a day, and digoxin. 2. Continue Eliquis 5 mg per PEG tube twice a day. 3. Continue amiodarone to 200 mg per PEG tube daily for atrial fibrillation prophylaxis. 4. Increase activity as tolerated, physical therapy and occupational therapy following. 5. Mechanical ventilator management and pulmonary recommendations per Dr. Ott. 6. Medical management and insulin management per primary care service. 7. DVT and GI prophylaxis. Knee-high DIVINE hose and sequential compression devices in place. 8. Lea catheter for strict I&O's. 9. Continue tube feedings per dietitian's recommendations. Water flushes have been increased to 200 mL every 6 hours. 10. Monitor daily labs and chest x-rays. 11. Continue to hold sedation. 12. Apply heart hugger surgical vest for sternal support. 13. Lisinopril 2.5 mg per OG tube initiated for elevated blood pressure. 14. More recommendations to follow as the patient progresses in her care. Time with Patient: Greater than 30
[2017-06-17 09:32] LABS: Glucose,Whole Blood 129 mg/dL (75-99)
[2017-06-17] MEDS: DEXTROSE 5% IN WATER 1,000 ML IV SCH ×2 (09:34→23:11)
[2017-06-17] MEDS ORDERED: LISINOPRIL 2.5 MG TAB PO STA (10:44)
[2017-06-17 12:26] LABS: Glucose,Whole Blood 147 mg/dL (75-99)
--- NOTE | 2017-06-17 12:32 | P.PN ---
Progress Note - Text Progress Note Date: 06/17/17 Patient remains stable on the ventilator. She continues tolerating her tube feeds at goal. Her bolster was loosened from 4-5 cm. We'll sign off at this point. Please contact if needed.
[2017-06-17] MEDS ORDERED: FUROSEMIDE 10 MG/ML 4 ML VIAL IV STA ×2 (12:54→21:50)
[2017-06-17] MEDS ORDERED: LISINOPRIL 5 MG TAB PEG/G-TUBE STA (12:55)
[2017-06-17] MEDS: hydrALAZINE HCL 20 MG/ML 1 ML VIAL IVP PRN (13:56)
[2017-06-17 14:05] LABS: Glucose,Whole Blood 141 mg/dL (75-99)
--- NOTE | 2017-06-17 15:13 | PN ---
PROGRESS NOTE A 66-year-old lady with status post CABG, had respiratory failure. She denies chest pain. Has tracheostomy and at the moment remains in sinus rhythm on amiodarone, Eliquis, aspirin, Lipitor, Lanoxin and hydralazine. The patient has had elevated blood pressures. The medications have been adjusted. PHYSICAL EXAM: Heart rate is 80. Her blood pressure is 140/70, respiratory rate 18. Chest exam reveals diminished air entry bilaterally. Heart exam reveals first and second heart sounds. No gallop. Exam of extremities did not reveal any edema. Peripheral pulses are felt. MMODL / IJN: [id number] /
[2017-06-17 17:12] LABS: Glucose,Whole Blood 176 mg/dL (75-99)
[2017-06-17 18:45] LABS: Glucose,Whole Blood 152 mg/dL (75-99)
[2017-06-17 19:53] LABS: Glucose,Whole Blood 144 mg/dL (75-99)
[2017-06-17] MEDS: MONTELUKAST 10 MG TAB PO SCH (20:02)
[2017-06-17] MEDS: SENNOSIDES-DOCUSATE SODIUM 1 EACH TAB PO SCH (20:03)
[2017-06-17] MEDS: INSULIN REGULAR 100 UNIT in SODIUM CHLORIDE 0.9% 100 ML IV SCH (20:04)
--- NOTE | 2017-06-17 20:49 | PN ---
PROGRESS NOTE DATE OF SERVICE: June 17, 2017. PRESENTING COMPLAINT: Tired. INTERVAL HISTORY: This patient with known coronary artery disease, presented with acute RI. Subsequently had a cardiac arrest with VFib on the floor and finally ended up having 4 vessel coronary bypass. The patient is on the ventilator and now has a tracheostomy and a PEG tube in place and PEG tube feeding is at goal. Seroquel was discontinued. The patient is more awake, following commands, though still lethargic. The patient is on a CPAP trial. Remains on insulin drip and remains in atrial flutter fibrillation. REVIEW OF SYSTEMS: The patient has a tracheostomy on the ventilator. CURRENT MEDICATIONS: Reviewed that include Cordarone, DuoNeb, insulin drip, IV meropenem. PHYSICAL EXAMINATION: Afebrile, pulse 82, respiration 23, blood pressure 150/71, pulse ox 98%. GENERAL APPEARANCE: Lying in bed, a bit more awake, though looks a little tired. Eyes open. Eyes pupils equal. Conjunctivae normal. HEENT external appearance of nose and ears normal. Oral cavity dry. Neck tracheostomy in place. JVD unable to assess. Respiratory effort normal. Lungs distant breath sounds. Cardiovascular. HEART sounds irregular. Some edema. ABDOMEN: Soft, nontender. Liver and spleen not palpable. No mass palpable. Neurological following commands. Some movement of the limbs. INVESTIGATIONS: White count 6.7, hemoglobin 7.9. Blood gas showed pH of 7.48, sodium 150, chloride 114. ASSESSMENT: 1. 4-vessel coronary artery bypass. 2. Coronary artery disease with prior history of stent, presented with acute myocardial infarction on this admission, followed by cardiac arrest on the floor with medical fibrillation. 3. Morbid obesity BMI greater than 50. 4. Intermittent asthma. 5. Diabetes mellitus type 2, chronically on insulin, currently uncontrolled with hypoglycemia on insulin drip. 6. Gastroesophageal reflux disease. 7. Hyperlipidemia. 8. Obstructive sleep apnea uses CPAP until recently. 9. Right mastectomy for cancer. 10.Right axillary lesion, being followed as an outpatient. 11.Bilateral nephrolithiasis asymptomatic. 12.Left adrenal nodule 2.5 cm. 13.Hypertensive heart disease. 14.Acute hypoxic respiratory failure on ventilator. 15.Acute blood loss anemia expected from surgery, required blood transfusion. 16.Hypoalbuminemia as an acute phase reactant. 17.Persistent atrial flutter fibrillation. 18.Left basal pneumonia with cultures growing Enterobacter cloacae. 19.Hypernatremia with hypochloremia, increased BUN; suspect volume contraction with metabolic alkalosis. PLAN: Patient's insulin drip will be discontinued in the morning. We will resume patient's home dose of 6 units of Lantus. Accu-Cheks will continue to be followed. Intensivist to add some wall free fluids. Sodium is still running on the high side. Prognosis remains guarded. Follow. MMODL / IJN: [id number] /
[2017-06-17 21:01] LABS: Glucose,Whole Blood 140 mg/dL (75-99)
--- NOTE | 2017-06-17 22:11 | XR ---
EXAMINATION TYPE: XR chest 1V portable DATE OF EXAM: 06/17/2017 COMPARISON: Today HISTORY: Respiratory distress TECHNIQUE: Single frontal view of the chest is obtained. FINDINGS: There is no heart failure. Heart appears enlarged. There is probably infiltrate in the lef t lower lobe. There are sternal wires. Tracheostomy tube is noted. There are chest leads. IMPRESSION: There is probably left lower lobe infiltrate that is significantly improved compared to exam earlier today at 6:00 AM. There is clearing of the pulmonary vascular congestion compared to las t exam.
[2017-06-17 23:04] LABS: Glucose,Whole Blood 153 mg/dL (75-99)
[2017-06-18] MEDS: LACTATED RINGERS 1,000 ML IV SCH (00:01)
[2017-06-18 00:02] LABS: Glucose,Whole Blood 167 mg/dL (75-99)
[2017-06-18 01:03] LABS: Glucose,Whole Blood 149 mg/dL (75-99)
[2017-06-18] MEDS: hydrALAZINE HCL 20 MG/ML 1 ML VIAL IVP PRN (02:00)
[2017-06-18] MEDS ORDERED: hydrALAZINE HCL 20 MG/ML 1 ML VIAL IVP PRN (02:03)
[2017-06-18 02:21] LABS: Glucose,Whole Blood 157 mg/dL (75-99)
[2017-06-18] MEDS: IPRATROPIUM-ALBUTEROL 3 ML NEB INHALATION SCH ×4 (02:44→15:19)
[2017-06-18 02:46] LABS: Glucose,Whole Blood 135 mg/dL (75-99)
--- NOTE | 2017-06-18 03:29 | XR ---
EXAM: XR Chest, 1 View CLINICAL HISTORY: XR Reason: post op CABG TECHNIQUE: Frontal view of the chest. COMPARISON: 06/17/2017 FINDINGS: Lungs: Stable opacity left mid to lower lung zone. Pulmonary vasculature questionably minimally improved in the right midlung. Pleural space: There is interval slight increase in the blunting of the left lateral costophrenic margin. No pneumothorax. Heart: Stable cardiomegaly with intact sternotomy wires. Mediastinum: Unremarkable. Bones/joints: See above. Tubes, lines and devices: Left arm PICC is identified with the tip in the superior vena cava near the confluence of the brachiocephalic veins. Tracheostomy tube in position. IMPRESSION: 1. Stable opacity left mid to lower lung zone. Left basilar atelectasis or consolidation with coexisting effusion suggested. 2. Stable cardiomegaly. Questionable minimal improvement in pulmonary vascular pattern versus alteration in technique. Please correlate clinically.
[2017-06-18] MEDS ORDERED: PROPOFOL 100 ML IV ONE (03:51)
[2017-06-18] MEDS ORDERED: PROPOFOL 1,000 MG in EMPTY BAG 1 BAG IV SCH (04:00)
[2017-06-18 04:05] LABS: Glucose,Whole Blood 165 mg/dL (75-99)
[2017-06-18 04:38] LABS: Anisocytosis Slight; Basophils % (A) 0 %; Eosinophils % (A) 0 %; HCT 34.2 % (34.0-46.0); Hypochromasia Marked; Lymphocytes # (A) 0.6 k/uL (1.0-4.8); Lymphocytes % (A) 6 %; MCH 27.5 pg (25.0-35.0); MCHC 28.3 g/dL (31.0-37.0); MCV 97.1 fL (80.0-100.0); Macrocytosis Slight; Mean Platelet Volume 9.5; Monocytes # (A) 0.4 k/uL (0-1.0); Monocytes % (A) 3 %; Neutrophils # (A) 9.8 k/uL (1.3-7.7); Neutrophils % (A) 90 %; Platelet Count 250 k/uL (150-450); Poikilocytosis Slight; RBC 3.52 m/uL (3.80-5.40); RDW 19.2 % (11.5-15.5)
[2017-06-18 04:51] LABS: Glucose,Whole Blood 174 mg/dL (75-99)
[2017-06-18 04:51] LABS: HGB 9.7 gm/dL (11.4-16.0)
[2017-06-18 04:52] LABS: ALT 32 U/L (9-52); AST 49 U/L (14-36); Albumin 2.9 g/dL (3.5-5.0); Alkaline Phosphatase 106 U/L (38-126); Anion Gap 9 mmol/L; Blood Urea Nitrogen 42 mg/dL (7-17); Calcium 9.4 mg/dL (8.4-10.2); Carbon Dioxide 31 mmol/L (22-30); Chloride 112 mmol/L (98-107); Glucose 166 mg/dL (74-99); Magnesium 2.6 mg/dL (1.6-2.3); Phosphorus 4.2 mg/dL (2.5-4.5); Potassium 4.7 mmol/L (3.5-5.1); Sodium 152 mmol/L (137-145); Total Bilirubin 1.2 mg/dL (0.2-1.3); Total Protein 6.3 g/dL (6.3-8.2)
[2017-06-18 04:57] LABS: ABG Base Excess 3.7 mmol/L; ABG HCO3 29 mmol/L (21-25); ABG Oxygen Saturation 96.6 % (94-97); ABG PCO2 50 mmHg (35-45); ABG PH 7.38 (7.35-7.45); ABG PO2 84 mmHg (83-108); ABG TCO2 31 mmol/L (19-24)
[2017-06-18 06:06] LABS: Glucose,Whole Blood 164 mg/dL (75-99)
[2017-06-18 06:59] LABS: Glucose,Whole Blood 162 mg/dL (75-99)
[2017-06-18] MEDS: BUDESONIDE 1 MG/2 ML NEBU INHALATION SCH (07:09)
[2017-06-18] MEDS: MEROPENEM 1 GM in SODIUM CHLORIDE 0.9% 100 ML IVPB SCH (08:12)
[2017-06-18] MEDS: FERROUS SULFATE ORAL ELIXIR 300 MG/5 ML CUP OG-TUBE SCH (08:12)
[2017-06-18] MEDS: ASCORBIC ACID 500 MG TAB PO SCH (08:12)
[2017-06-18] MEDS: METOPROLOL TARTRATE 50 MG TAB PO SCH (08:13)
[2017-06-18] MEDS: APIXABAN 5 MG TAB PEG/G-TUBE SCH (08:13)
[2017-06-18] MEDS: DIGOXIN 125 MCG TAB OG-TUBE SCH (08:14)
[2017-06-18] MEDS: ASPIRIN 81 MG PO SCH (08:14)
[2017-06-18] MEDS: CHLORHEXIDINE GLUCONATE 15 ML CUP MUCOUS MEM SCH (08:14)
[2017-06-18] MEDS: PANTOPRAZOLE 40 MG/10 ML VIAL IVP SCH (08:15)
[2017-06-18] MEDS: ATORVASTATIN 40 MG TAB PO SCH (08:15)
[2017-06-18] MEDS: POTASSIUM BICARBONATE/CIT AC 20 MEQ TABLET.EFF PO SCH ×2 (08:15→10:08)
[2017-06-18] MEDS: AMIODARONE 200 MG TAB PO SCH (08:15)
[2017-06-18 08:29] LABS: Glucose,Whole Blood 137 mg/dL (75-99)
[2017-06-18] MEDS ORDERED: ALBUMIN HUMAN 25% 50 ML in EMPTY BAG 1 BAG IVPB ONE (08:41)
[2017-06-18] MEDS ORDERED: LISINOPRIL 10 MG TAB PEG/G-TUBE SCH (09:00)
[2017-06-18] MEDS ORDERED: INSULIN DETEMIR 100 UNIT/ML 10 ML VIAL SQ SCH (09:00)
[2017-06-18] MEDS ORDERED: amLODIPine 5 MG TAB PO SCH (09:00)
[2017-06-18] MEDS ORDERED: LISINOPRIL 5 MG TAB PEG/G-TUBE SCH (09:00)
[2017-06-18] MEDS: INSULIN ASPART 100 UNIT/ML 1 ML 10 ML VIAL SQ SCH ×2 (09:10→13:36)
[2017-06-18] MEDS ORDERED: FUROSEMIDE 10 MG/ML 4 ML VIAL IV ONE (09:30)
[2017-06-18 10:20] VITALS: BMI 47.7
--- NOTE | 2017-06-18 10:37 | P.PN ---
Subjective Progress Note Date: 06/18/17 Principal diagnosis: Multivessel coronary artery disease, status post ventricular fibrillation arrest , history of hypertension, hyperlipidemia, insulin dependent diabetes mellitus with preoperative hemoglobin A1c 9.4%, non-ST elevation myocardial infarction this admission and history of previous myocardial infarction with stent placement to the RCA in 2010, preserved left ventricular function with preoperative ejection fraction of 50-55%, mild mitral valve regurgitation, obesity, obstructive sleep apnea, recent pneumonia in March 2017, previous tobacco dependence, right breast cancer with lumpectomy and radiation, chronic obstructive pulmonary disease with preoperative FEV1 of 76% of predicted and preoperative arterial blood gas pH 7.46, pCO2 40, pO2 68, HCO3 28, GERD and family history of premature coronary artery disease. POD #16 coronary artery bypass grafting 4 using the left internal mammary artery to the left anterior descending coronary artery, a reverse greater saphenous vein graft from the aorta to the distal posterior descending coronary artery, a reverse greater saphenous vein graft from the aorta to the ramus intermedius coronary artery, a reverse greater saphenous vein graft from the aorta to the second diagonal coronary artery. Endoscopic harvesting of the right greater saphenous vein. Intraoperative transesophageal echocardiogram and epi-aortic scanning. Intraoperative graft flow measurement using the [employer] system. Status post preoperative acute cardiac arrest with ventricular fibrillation arrest with successful resuscitation. Postoperative prolonged mechanical ventilation secondary to hemodynamic instability and acute hypoxic respiratory failure, an unexpected but potential outcome of surgery. Postoperative atrial fibrillation, an unexpected but potential outcome of surgery. POD #12 bronchoscopy per pulmonology, bronchial washings positive for Enterobacter cloacae. Postoperative acute blood loss anemia, a potential outcome of surgery. The patient is currently lying in bed with her head elevated. She is in no acute distress. She remains with midline tracheostomy and mechanical ventilator support. She is currently sedated on Diprivan at 5 mcg/kg/m. She is following simple verbal commands and moving all 4 extremities with weak movements. She is shaking her head yes and no appropriately to questions. Objective - Vital Signs Vital signs: Vital Signs Temp 98.8 F 06/18/17 08:00 Pulse 69 06/18/17 09:00 Resp 28 H 06/18/17 09:00 BP 133/52 06/18/17 09:00 Pulse Ox 100 06/18/17 09:00 Intake & Output 06/17/17 06/18/17 06/18/17 18:59 06:59 18:59 Intake Total 1780 1089.40 459 Output Total 2400 2310 300 Balance -620 -1220.60 159 Weight 122.3 kg Intake: IV 489 393 129 0.9 for pressure 39 18 9 Meropenem 1 gm In Sodium 100 100 Chloride 0.9% 100 ml @ 200 mls/hr IVPB Q8HR [facility] Rx#:[id number] Sodium Chloride 0.45% 1, 450 275 20 000 ml @ 75 mls/hr IV . [id number] [facility] Rx#:[id number] Intake, IV Titration 525 104.40 50 Amount Albumin Human 25% 50 ml 50 In Empty Bag 1 bag @ 100 mls/hr IVPB ONCE ONE Rx#: [id number] Dextrose 5% in Water 1, 525 000 ml @ 75 mls/hr IV . [id number] [facility] Rx#:[id number] Insulin Regular 100 unit 104.40 In Sodium Chloride 0.9% 100 ml @ Per Protocol IV .Q0M [facility] Rx#:[id number] Tube Feeding 766 392 280 Other 200 Output: Drainage 580 520 90 Right Lower Medial Calf 580 520 90 Urine 1820 1790 210 Other: Voiding Method Indwelling Catheter Indwelling Catheter Indwelling Catheter # Voids 1 ABP, PAP, CO, CI - Last Documented Arterial Blood Pressure 139/63 Pulmonary Artery Pressure 33/21 Cardiac Output 5 Cardiac Index 2.4 - Constitutional General appearance: Present: cooperative, no acute distress, obese - EENT Eyes: Present: PERRLA ENT: Present: hearing grossly normal - Neck Details: No JVD, neck is supple, no lymphadenopathy. - Respiratory Details: Lung sounds are essentially clear to her upper lobes, few scattered crackles to her bilateral bases. Respirations are symmetrical and nonlabored with mechanical ventilator support. Current mechanical ventilator settings are as follows: Cyst control 28, TV 400, FiO2 50%, PEEP of 5. Oxygen saturation is on current ventilator settings are 100%. - Cardiovascular Details: Regular rhythm and rate. S1 and S2 present, negative for S3, gallop or murmur. Sternum is stable. Bedside telemetry showing normal sinus rhythm heart rate 80. Heart hugger surgical support fast in place. +1 generalized edema. Knee- high DIVINE hose and support to compression devices in place to her bilateral lower extremity Osbaldo. Left brachial PICC line in place and functioning. Left radial a line in place and functioning. - Gastrointestinal Gastrointestinal Comment(s): Abdomen is soft, nontender and nondistended. Active bowel sounds all 4 abdominal quadrants. PEG tube in place and functioning with vital high-protein 1.0-calorie infusing at 56 mL per hour with water automatic flushes at 200 mL every 6 hours. Bowel movement this a.m. 06/18/2017. - Genitourinary Genitourinary Comment(s): Lea catheter for accurate I&O. Draining clear nithin urine with some scant sediment. 1595 mL output in the last 8 hours. - Neurologic Neurologic Comment(s): The patient is nodding her head to yes and no questions appropriately. She is moving all 4 extremities with weak movements. Patient is currently on Diprivan drip at 5 mcg/kg/m. - Musculoskeletal Musculoskeletal: Present: generalized weakness, strength equal bilaterally - Allied health notes Allied health notes reviewed: nursing - Labs CBC & Chem 7: 06/18/17 04:10 06/18/17 04:10 Labs: Abnormal Lab Results - Last 24 Hours (Table) 06/17/17 06/17/17 06/17/17 Range/Units 12:24 14:03 17:03 WBC (3.8-10.6) k/uL RBC (3.80-5.40) m/uL Hgb (11.4-16.0) gm/dL MCHC (31.0-37.0) g/dL RDW (11.5-15.5) % Neutrophils # (1.3-7.7) k/uL Lymphocytes # (1.0-4.8) k/uL Sodium (137-145) mmol/L Chloride (98-107) mmol/L Carbon Dioxide (22-30) mmol/L BUN (7-17) mg/dL Glucose (74-99) mg/dL POC Glucose (mg/dL) 147 H 141 H 176 H (75-99) mg/dL Magnesium (1.6-2.3) mg/dL AST (14-36) U/L Albumin (3.5-5.0) g/dL 06/17/17 06/17/17 06/17/17 Range/Units 18:44 19:50 21:00 WBC (3.8-10.6) k/uL RBC (3.80-5.40) m/uL Hgb (11.4-16.0) gm/dL MCHC (31.0-37.0) g/dL RDW (11.5-15.5) % Neutrophils # (1.3-7.7) k/uL Lymphocytes # (1.0-4.8) k/uL Sodium (137-145) mmol/L Chloride (98-107) mmol/L Carbon Dioxide (22-30) mmol/L BUN (7-17) mg/dL Glucose (74-99) mg/dL POC Glucose (mg/dL) 152 H 144 H 140 H (75-99) mg/dL Magnesium (1.6-2.3) mg/dL AST (14-36) U/L Albumin (3.5-5.0) g/dL 06/17/17 06/18/17 06/18/17 Range/Units 23:03 00:00 01:00 WBC (3.8-10.6) k/uL RBC (3.80-5.40) m/uL Hgb (11.4-16.0) gm/dL MCHC (31.0-37.0) g/dL RDW (11.5-15.5) % Neutrophils # (1.3-7.7) k/uL Lymphocytes # (1.0-4.8) k/uL Sodium (137-145) mmol/L Chloride (98-107) mmol/L Carbon Dioxide (22-30) mmol/L BUN (7-17) mg/dL Glucose (74-99) mg/dL POC Glucose (mg/dL) 153 H 167 H 149 H (75-99) mg/dL Magnesium (1.6-2.3) mg/dL AST (14-36) U/L Albumin (3.5-5.0) g/dL 06/18/17 06/18/17 06/18/17 Range/Units 02:19 02:44 04:02 WBC (3.8-10.6) k/uL RBC (3.80-5.40) m/uL Hgb (11.4-16.0) gm/dL MCHC (31.0-37.0) g/dL RDW (11.5-15.5) % Neutrophils # (1.3-7.7) k/uL Lymphocytes # (1.0-4.8) k/uL Sodium (137-145) mmol/L Chloride (98-107) mmol/L Carbon Dioxide (22-30) mmol/L BUN (7-17) mg/dL Glucose (74-99) mg/dL POC Glucose (mg/dL) 157 H 135 H 165 H (75-99) mg/dL Magnesium (1.6-2.3) mg/dL AST (14-36) U/L Albumin (3.5-5.0) g/dL 06/18/17 06/18/17 06/18/17 Range/Units 04:10 04:10 04:49 WBC 11.0 H (3.8-10.6) k/uL RBC 3.52 L (3.80-5.40) m/uL Hgb 9.7 L D (11.4-16.0) gm/dL MCHC 28.3 L (31.0-37.0) g/dL RDW 19.2 H (11.5-15.5) % Neutrophils # 9.8 H (1.3-7.7) k/uL Lymphocytes # 0.6 L (1.0-4.8) k/uL Sodium 152 H (137-145) mmol/L Chloride 112 H (98-107) mmol/L Carbon Dioxide 31 H (22-30) mmol/L BUN 42 H (7-17) mg/dL Glucose 166 H (74-99) mg/dL POC Glucose (mg/dL) 174 H (75-99) mg/dL Magnesium 2.6 H (1.6-2.3) mg/dL AST 49 H (14-36) U/L Albumin 2.9 L (3.5-5.0) g/dL 06/18/17 06/18/17 06/18/17 Range/Units 06:04 06:58 08:27 WBC (3.8-10.6) k/uL RBC (3.80-5.40) m/uL Hgb (11.4-16.0) gm/dL MCHC (31.0-37.0) g/dL RDW (11.5-15.5) % Neutrophils # (1.3-7.7) k/uL Lymphocytes # (1.0-4.8) k/uL Sodium (137-145) mmol/L Chloride (98-107) mmol/L Carbon Dioxide (22-30) mmol/L BUN (7-17) mg/dL Glucose (74-99) mg/dL POC Glucose (mg/dL) 164 H 162 H 137 H (75-99) mg/dL Magnesium (1.6-2.3) mg/dL AST (14-36) U/L Albumin (3.5-5.0) g/dL Microbiology - Last 24 Hours (Table) 06/12/17 14:53 Blood Culture - Preliminary Blood No Growth after 120 hours - Imaging and Cardiology Chest x-ray: report reviewed, image reviewed Assessment and Plan (1) History of right breast cancer Current Visit: Yes Status: Acute Code(s): Z85.3 - PERSONAL HISTORY OF MALIGNANT NEOPLASM OF BREAST SNOMED Code(s): 153779373 (2) Non-STEMI (non-ST elevated myocardial infarction) Current Visit: Yes Status: Acute Code(s): I21.4 - NON-ST ELEVATION (NSTEMI) MYOCARDIAL INFARCTION SNOMED Code(s): 965028600 (3) Diabetes mellitus Current Visit: Yes Status: Chronic Code(s): E11.9 - TYPE 2 DIABETES MELLITUS WITHOUT COMPLICATIONS SNOMED Code(s): 08516352 (4) Family history of premature coronary artery disease Current Visit: Yes Status: Chronic Code(s): Z82.49 - FAMILY HX OF ISCHEM HEART DIS AND OTH DIS OF THE CIRC SYS SNOMED Code(s): 868313730 (5) History of heart artery stent Current Visit: Yes Status: Chronic Code(s): Z95.5 - PRESENCE OF CORONARY ANGIOPLASTY IMPLANT AND GRAFT SNOMED Code(s): 523507626 (6) Hyperlipidemia Current Visit: Yes Status: Chronic Code(s): E78.5 - HYPERLIPIDEMIA, UNSPECIFIED SNOMED Code(s): 46187782 (7) Hypertension Current Visit: Yes Status: Chronic Code(s): I10 - ESSENTIAL (PRIMARY) HYPERTENSION SNOMED Code(s): 59152092 (8) Morbid obesity with BMI of 40.0-44.9, adult Current Visit: Yes Status: Chronic Code(s): E66.01 - MORBID (SEVERE) OBESITY DUE TO EXCESS CALORIES; Z68.41 - BODY MASS INDEX (BMI) 40.0-44.9, ADULT SNOMED Code(s): 081291621 (9) History of sudden cardiac arrest successfully resuscitated Current Visit: Yes Status: Acute Code(s): Z86.74 - PERSONAL HISTORY OF SUDDEN CARDIAC ARREST SNOMED Code(s): 376811763 Plan: 1. Continue low dose aspirin, statin, metoprolol 100 mg per PEG tube twice a day, and digoxin. 2. Continue Eliquis 5 mg per PEG tube twice a day. 3. Continue amiodarone to 200 mg per PEG tube daily for atrial fibrillation prophylaxis. 4. Increase activity as tolerated, physical therapy and occupational therapy following. 5. Mechanical ventilator management and pulmonary recommendations per Dr. Mari. 6. Medical management and insulin management per primary care service. 7. DVT and GI prophylaxis. Knee-high DIVINE hose and sequential compression devices in place. 8. Lea catheter for strict I&O's. 9. Continue tube feedings per dietitian's recommendations. Continue water flushes at 200 mL every 6 hours. 10. Monitor daily labs and chest x-rays. 11. hold Diprivan drip. 12. Continue heart hugger surgical vest for sternal support. 13. Continue Lisinopril 10 mg per OG tube for blood pressure management. 14. Albumin 25% 1 IV piggyback followed by Lasix 40 mg IV 1 15. Remove right leg DREW drain. 16. More recommendations to follow as the patient progresses in her care. Anticipate transfer to select specialty within the next 24-48 hours. Time with Patient: Greater than 30
--- NOTE | 2017-06-18 11:11 | P.PN ---
Subjective Progress Note Date: 06/18/17 On 06/18/2018 I'm seeing this patient for a follow-up. The patient has multivessel coronary artery disease and the patient is status post cardiac arrest. The patient is status post four-vessel bypass surgery. The patient is currently postop day #16. The patient is awake. The patient is status post PEG and trach for failure to wean and currently she is on assist control mode. The patient was having significant asynchrony with a mechanical ventilator with elevated peak airway pressures and double stacking. Obviously she is air hungry and she needs higher volumes knowing that her minute ventilation has been above 11. Based on this, it was this patient a VC plus mode with a I time of 0.8 seconds with a tidal volume of 500. Immediately following that they peak airway pressure dropped down to 19 and the patient became much more synchronous. Her FiO2 has been also dropped down to 40%. Morning blood gases showed a pH of 7.37 with a pCO2 of 49 and pO2 of 84.7. Chest x-ray shows a small left-sided pleural effusion. Tracheostomy tube is in a good location. The patient is a #[address] No bronchospasm and wheezing. Physically she is extremely weak she is barely able to raise her arms against gravity. She has however awake and communicating and following commands and answering questions appropriately. PEG tube is in place and the patient is receiving enteral feeding for nutritional support. Her cardiac rhythm is sinus. Heart rate in the mid 80s. All of the tubes are been removed. She is having some issues with high sodium level. The patient is receiving diuretics on and off. She is also being given D5 water and free water flushes through the PEG tube. Most recent sodium level is at 152. The patient is on D5 water at the rate of 75 mL an hour and receiving 200 mL of free water through the PEG tube every 6 hours. The plan is to move this patient to select specialty today. Objective - Vital Signs Vital signs: Vital Signs Temp 98.8 F 06/18/17 08:00 Pulse 77 06/18/17 11:04 Resp 28 H 06/18/17 09:00 BP 133/52 06/18/17 09:00 Pulse Ox 100 06/18/17 09:00 Intake & Output 06/17/17 06/18/17 06/18/17 18:59 06:59 18:59 Intake Total 1780 1089.40 459 Output Total 2400 2310 300 Balance -620 -1220.60 159 Weight 122.3 kg 122.3 kg Intake: IV 489 393 129 0.9 for pressure 39 18 9 Meropenem 1 gm In Sodium 100 100 Chloride 0.9% 100 ml @ 200 mls/hr IVPB Q8HR [facility] Rx#:[id number] Sodium Chloride 0.45% 1, 450 275 20 000 ml @ 75 mls/hr IV . [id number] [facility] Rx#:[id number] Intake, IV Titration 525 104.40 50 Amount Albumin Human 25% 50 ml 50 In Empty Bag 1 bag @ 100 mls/hr IVPB ONCE ONE Rx#: [id number] Dextrose 5% in Water 1, 525 000 ml @ 75 mls/hr IV . [id number] [facility] Rx#:[id number] Insulin Regular 100 unit 104.40 In Sodium Chloride 0.9% 100 ml @ Per Protocol IV .Q0M [facility] Rx#:[id number] Tube Feeding 766 392 280 Other 200 Output: Drainage 580 520 90 Right Lower Medial Calf 580 520 90 Urine 1820 1790 210 Other: Voiding Method Indwelling Catheter Indwelling Catheter Indwelling Catheter # Voids 1 ABP, PAP, CO, CI - Last Documented Arterial Blood Pressure 139/63 Pulmonary Artery Pressure 33/21 Cardiac Output 5 Cardiac Index 2.4 - Exam - Constitutional General appearance: Present: cooperative, no acute distress, obese - EENT Eyes: Present: PERRLA ENT: Present: hearing grossly normal - Neck Details: No JVD, neck is supple, no lymphadenopathy. - Respiratory Details: Lung sounds are essentially clear to her upper lobes, few scattered crackles to her bilateral bases. Respirations are symmetrical and nonlabored with mechanical ventilator support. Current mechanical ventilator on assist control mode. - Cardiovascular Details: Regular rhythm and rate. S1 and S2 present, negative for S3, gallop or murmur. Sternum is stable. Bedside telemetry showing normal sinus rhythm heart rate 80. Heart hugger surgical support fast in place. +1 generalized edema. Knee- high DIVINE hose and support to compression devices in place to her bilateral lower extremity Osbaldo. Left brachial PICC line in place and functioning. Left radial a line in place and functioning. - Gastrointestinal Gastrointestinal Comment(s): Abdomen is soft, nontender and nondistended. Active bowel sounds all 4 abdominal quadrants. PEG tube in place and functioning with vital high-protein 1.0-calorie infusing at 56 mL per hour with water automatic flushes at 200 mL every 6 hours. Bowel movement this a.m. 06/18/2017. - Genitourinary Genitourinary Comment(s): Lea catheter for accurate I&O. Draining clear nithin urine with some scant sediment. 1595 mL output in the last 8 hours. - Neurologic Neurologic Comment(s): The patient is nodding her head to yes and no questions appropriately. She is moving all 4 extremities with weak movements. - Musculoskeletal Musculoskeletal: Present: generalized weakness, strength equal bilaterally - Labs CBC & Chem 7: 06/18/17 04:10 06/18/17 04:10 Labs: Abnormal Lab Results - Last 24 Hours (Table) 06/17/17 06/17/17 06/17/17 Range/Units 12:24 14:03 17:03 WBC (3.8-10.6) k/uL RBC (3.80-5.40) m/uL Hgb (11.4-16.0) gm/dL MCHC (31.0-37.0) g/dL RDW (11.5-15.5) % Neutrophils # (1.3-7.7) k/uL Lymphocytes # (1.0-4.8) k/uL Sodium (137-145) mmol/L Chloride (98-107) mmol/L Carbon Dioxide (22-30) mmol/L BUN (7-17) mg/dL Glucose (74-99) mg/dL POC Glucose (mg/dL) 147 H 141 H 176 H (75-99) mg/dL Magnesium (1.6-2.3) mg/dL AST (14-36) U/L Albumin (3.5-5.0) g/dL 06/17/17 06/17/17 06/17/17 Range/Units 18:44 19:50 21:00 WBC (3.8-10.6) k/uL RBC (3.80-5.40) m/uL Hgb (11.4-16.0) gm/dL MCHC (31.0-37.0) g/dL RDW (11.5-15.5) % Neutrophils # (1.3-7.7) k/uL Lymphocytes # (1.0-4.8) k/uL Sodium (137-145) mmol/L Chloride (98-107) mmol/L Carbon Dioxide (22-30) mmol/L BUN (7-17) mg/dL Glucose (74-99) mg/dL POC Glucose (mg/dL) 152 H 144 H 140 H (75-99) mg/dL Magnesium (1.6-2.3) mg/dL AST (14-36) U/L Albumin (3.5-5.0) g/dL 06/17/17 06/18/17 06/18/17 Range/Units 23:03 00:00 01:00 WBC (3.8-10.6) k/uL RBC (3.80-5.40) m/uL Hgb (11.4-16.0) gm/dL MCHC (31.0-37.0) g/dL RDW (11.5-15.5) % Neutrophils # (1.3-7.7) k/uL Lymphocytes # (1.0-4.8) k/uL Sodium (137-145) mmol/L Chloride (98-107) mmol/L Carbon Dioxide (22-30) mmol/L BUN (7-17) mg/dL Glucose (74-99) mg/dL POC Glucose (mg/dL) 153 H 167 H 149 H (75-99) mg/dL Magnesium (1.6-2.3) mg/dL AST (14-36) U/L Albumin (3.5-5.0) g/dL 06/18/17 06/18/17 06/18/17 Range/Units 02:19 02:44 04:02 WBC (3.8-10.6) k/uL RBC (3.80-5.40) m/uL Hgb (11.4-16.0) gm/dL MCHC (31.0-37.0) g/dL RDW (11.5-15.5) % Neutrophils # (1.3-7.7) k/uL Lymphocytes # (1.0-4.8) k/uL Sodium (137-145) mmol/L Chloride (98-107) mmol/L Carbon Dioxide (22-30) mmol/L BUN (7-17) mg/dL Glucose (74-99) mg/dL POC Glucose (mg/dL) 157 H 135 H 165 H (75-99) mg/dL Magnesium (1.6-2.3) mg/dL AST (14-36) U/L Albumin (3.5-5.0) g/dL 06/18/17 06/18/17 06/18/17 Range/Units 04:10 04:10 04:49 WBC 11.0 H (3.8-10.6) k/uL RBC 3.52 L (3.80-5.40) m/uL Hgb 9.7 L D (11.4-16.0) gm/dL MCHC 28.3 L (31.0-37.0) g/dL RDW 19.2 H (11.5-15.5) % Neutrophils # 9.8 H (1.3-7.7) k/uL Lymphocytes # 0.6 L (1.0-4.8) k/uL Sodium 152 H (137-145) mmol/L Chloride 112 H (98-107) mmol/L Carbon Dioxide 31 H (22-30) mmol/L BUN 42 H (7-17) mg/dL Glucose 166 H (74-99) mg/dL POC Glucose (mg/dL) 174 H (75-99) mg/dL Magnesium 2.6 H (1.6-2.3) mg/dL AST 49 H (14-36) U/L Albumin 2.9 L (3.5-5.0) g/dL 06/18/17 06/18/17 06/18/17 Range/Units 06:04 06:58 08:27 WBC (3.8-10.6) k/uL RBC (3.80-5.40) m/uL Hgb (11.4-16.0) gm/dL MCHC (31.0-37.0) g/dL RDW (11.5-15.5) % Neutrophils # (1.3-7.7) k/uL Lymphocytes # (1.0-4.8) k/uL Sodium (137-145) mmol/L Chloride (98-107) mmol/L Carbon Dioxide (22-30) mmol/L BUN (7-17) mg/dL Glucose (74-99) mg/dL POC Glucose (mg/dL) 164 H 162 H 137 H (75-99) mg/dL Magnesium (1.6-2.3) mg/dL AST (14-36) U/L Albumin (3.5-5.0) g/dL Microbiology - Last 24 Hours (Table) 06/12/17 14:53 Blood Culture - Preliminary Blood No Growth after 120 hours Assessment and Plan Plan: Assessment -Acute Hypoxemic respiratory failure status post acute cardiopulmonary arrest requiring intubation and mechanical ventilation and successful resuscitation, now, with failure to wean. The patient had a tracheostomy tube in place with a #8 trach tube. She is much more success with the mechanical ventilator. She is oxygenating and ventilating well for the time being. All of the chest tubes have been removed. She has a small left-sided pleural effusion which is essentially postsurgical pleural effusion. - Acute cardiac arrest , Ischemia induced ventricular fibrillation - Severe multivessel coronary disease, status post four-vessel bypass grafting, postoperative day #16 - Status post tracheostomy and PEG tube placement, postoperative day #4 - Mental status changes, of unclear etiology. Patient had a negative computed tomography scan of the brain on June 10. Her logically the patient is improving and the patient's motor function needs to be worked on knowing that the patient has significant motor weakness both in upper and lower extremity -Mild/moderate COPD -Sleep apnea syndrome, severe -Obesity -Coronary disease, with previous stenting -Recent hospitalization at [facility] for right lower lobe pneumonia -History of right breast cancer with lumpectomy and lymph node dissection -GERD -Diabetes mellitus -Anemia - Q to hypernatremia secondary to aggressive diuresis. Encourage D5 water and free water through the PEG tube. Hold diuretics for now. Plan The necessary vent changes were done. The patient will be moved and transferred to select specialty for further rehabilitation. Obviously ongoing problem is the motor weakness for which she needs aggressive physical therapy. May consider daily weaning trials. She has a tracheostomy tube in place. He is an assist-control mode of ventilation, volume cycled. Neck rhythm is sinus. Continue enteral feeding for nutritional support. We'll follow till transferred out. Critically care evaluation, 31 minutes. Time with Patient: Greater than 30
[2017-06-18 11:44] LABS: Glucose,Whole Blood 188 mg/dL (75-99)
--- NOTE | 2017-06-18 13:20 | PN ---
PROGRESS NOTE A 66-year-old lady with coronary artery disease, status post CABG, respiratory failure, status post tracheostomy and paroxysmal atrial fibrillation. This morning she is resting comfortably. Remains in sinus rhythm. Hemodynamically stable. She is currently being in the process of being transferred to [facility]. Patient is on Cordarone 200 mg daily, Norvasc 5 mg daily, Eliquis 5 b.i.d., aspirin, Lipitor, Lopressor 100 mg b.i.d. On exam, comfortable at rest. Vital signs are stable. There is no jugular venous distention. Chest exam reveals diminished air entry at the bases. Heart exam reveals first and second heart sounds. No murmur. Examination of the extremities reveals 1+ edema Labs have been reviewed. ASSESSMENT: 1. Coronary artery disease, status post coronary artery bypass grafting. 2. Paroxysmal atrial fibrillation. 3. Respiratory failure. PLAN: We will continue with current medications. Prognosis is guarded. MMODL / IJN: [id number] /
[2017-06-18 13:26] VITALS: BP 124/57; PULSE 77; RESP 22; TEMP 98.2
[2017-06-18] MEDS: DEXTROSE 5% IN WATER 1,000 ML IV SCH (13:34)
--- NOTE | 2017-06-18 13:37 | P.DS ---
Providers Date of admission: 05/28/17 13:43 Expected date of discharge: 06/18/17 Attending physician: Fabi Lujan Consults: 05/29/17 13:06 Consult Physician Routine Consulting Provider: Ana Mari Consult Reason/Comments: copd Do you want consulting provider notified?: Already Contacted 05/29/17 13:07 Consult Physician Routine Consulting Provider: Silver Castro Consult Reason/Comments: cabg Do you want consulting provider notified?: Already Contacted 05/29/17 13:32 Consult to Anesthesia Routine Consulting Provider: Anesthesia,Services Consult Reason/Comments: Cardiac Surgery Pre-Op 06/01/17 14:30 Consult to Anesthesia Routine Consulting Provider: Anesthesia,Services Consult Reason/Comments: Cardiac Surgery Pre-Op 06/02/17 23:08 Consult Physician Routine Consulting Provider: Neftaly Stovall Consult Reason/Comments: Medical/diabetic management Do you want consulting provider notified?: Already Contacted 06/05/17 10:31 Consult Physician Routine Consulting Provider: Michael Meadows Consult Reason/Comments: PICC line placement Do you want consulting provider notified?: Yes 06/08/17 10:46 Consult Physician Routine Consulting Provider: Allen Bond Consult Reason/Comments: altered mental status Do you want consulting provider notified?: Yes 06/13/17 11:14 Consult Physician Routine Consulting Provider: Rafi Freitas Consult Reason/Comments: peg placement, hopefully 06/14/17 Do you want consulting provider notified?: Yes Primary care physician: Pretty Howell - Discharge Diagnosis(es) (1) History of right breast cancer Current Visit: Yes Status: Acute (2) Non-STEMI (non-ST elevated myocardial infarction) Current Visit: Yes Status: Acute (3) Diabetes mellitus Current Visit: Yes Status: Chronic (4) Family history of premature coronary artery disease Current Visit: Yes Status: Chronic (5) History of heart artery stent Current Visit: Yes Status: Chronic (6) Hyperlipidemia Current Visit: Yes Status: Chronic (7) Hypertension Current Visit: Yes Status: Chronic (8) Morbid obesity with BMI of 40.0-44.9, adult Current Visit: Yes Status: Chronic (9) History of sudden cardiac arrest successfully resuscitated Current Visit: Yes Status: Acute Hospital Course: FINAL DIAGNOSIS: 1. Multivessel coronary artery disease 2. Preoperative acute cardiac arrest ventricular fibrillation arrest with successful resuscitation 3. Hypertension 4. Hyperlipidemia 5. Insulin-dependent diabetes mellitus with a preoperative hemoglobin A1c of 9.4% 6. Non-ST elevated myocardial infarction this admission and history of previous myocardial infarction with stent placement to her right coronary artery in 2010 7. Preserved left ventricular function with a preoperative ejection fraction of 50-55% 8. Mild mitral valve regurgitation 9. Morbid obesity, BMI 47.8 kg/m 10. Obstructive sleep apnea 11. Recent pneumonia in March 2017 12. Previous tobacco dependence 13. Chronic obstructive pulmonary disease with a preoperative FEV1 of 76% of predicted and a preoperative arterial blood gas of pH 7.46, pCO2 40, pO2 68, HCO3 28 14. Family history of premature coronary artery disease 15. Postoperative prolonged mechanical ventilation secondary to hemodynamic instability and acute hypoxic respiratory failure, an unexpected but potential outcome of surgery 16. Postoperative atrial fibrillation, an unexpected but potential outcome of surgery 17. Postoperative acute blood loss anemia, a potential outcome of surgery 18. Ventilator-dependent, status post emergent coronary artery bypass grafting 19. Postoperative left lower lobe pneumonia, sputum with cultures showing Enterobacter Cloacae on meropenem 20. Gastroesophageal reflux disease 21. History of breast cancer, status post right mastectomy 22. Right axillary lesion, being followed as an outpatient PRINCIPAL PROCEDURE: 1. Selective right and left coronary angiographic on 05/29/2017 2. Emergent coronary artery bypass grafting 4 using the left internal mammary artery to the left anterior descending coronary artery, a reverse greater saphenous vein graft from the aorta to the distal posterior descending coronary artery, a reverse greater saphenous vein graft from the aorta to the ramus intermedius port artery artery, reverse greater saphenous vein graft from the aorta to the second diagonal coronary artery. 3. Endoscopic harvesting of the right greater saphenous vein. 4. Intraoperative transesophageal echocardiogram and epi-aortic scanning. 5. Intraoperative graft flow measurement using the Web and Rank system. 6. Insertion of PICC line to her left basilic vein under guidance of ultrasound , placed on 06/05/2017. 7. Bronchoscopy with bronchial alveolar lavage of the left lower lobe and right lower lobe performed on 06/05/2017. 8. Placement of #8 Shiley tracheostomy tube on 06/14/2017. 9. EGD with placement of percutaneous endoscopic gastrostomy tube on 06/14/2017 HISTORY OF PRESENT ILLNESS: This is a 66-year-old female patient who is followed by Dr. Pretty Howell on an outpatient basis. She has a past medical history significant for a non-ST elevated myocardial infarction in 2010 with a stent placed to her right coronary artery, hypertension, hyperlipidemia, insulin -dependent diabetes mellitus, morbid obesity, obstructive sleep apnea, GERD, previous nicotine dependence, history of right breast cancer with lumpectomy and radiation, history of right axillary lesion being followed as an outpatient and recent pneumonia in March 2017 requiring a thoracentesis. The patient presented to the emergency department at [facility] with complaints of chest pain which was radiating to her jaw and left shoulder. The patient also had complaints of shortness of breath and swelling to her bilateral lower extremities left greater than right. . Her initial 12-lead EKG at [facility] demonstrated normal sinus rhythm with a left bundle branch block. A chest x-ray was also performed which showed a right lower lobe infiltrate and small pleural effusion. Subsequently due to the patient's history of coronary artery disease and presenting symptoms she was transferred to [facility] for further workup and evaluation. Her initial troponins were mildly elevated at 0.038. She was diagnosed with a non-ST elevated myocardial infarction. HOSPITAL COURSE: The patient was admitted to the hospital and evaluated by Dr. Molina from [facility]ology [facility]. On 05/29/2017 the patient underwent a cardiac catheterization and 2-D echocardiogram. Her cardiac catheterization demonstrated a 90% stenosis of her right coronary artery, a 90% stenosis of her circumflex coronary artery, and 80% stenosis of her proximal left anterior descending coronary artery, and a 99% stenosis to her mid left anterior descending coronary artery. A 2-D echocardiogram showed an overall left ventricular systolic function to be low normal with an ejection fraction between 50 and 55%, and mild tricuspid valve regurgitation. At this time a consult was placed for cardiothoracic surgery. The patient was seen and evaluated by cardiothoracic surgery and the patient had been on chronic Plavix which needed to be held for 5 days prior to doing myocardial revascularization surgery. Subsequently on 06/01/2017 the patient acutely went into ventricular fibrillation and was intubated, successfully resuscitated and transferred to the intensive care unit. Postarrest the patient was given a sedation holiday and was neurologically intact with a Chacorta Coma Scale score of 11. She did have a spike in her troponins which were as high as 0.474. Subsequently after discussion between cardiology, the intensivists, and Dr. Lujan from cardiothoracic surgery it was felt that the patient should be taken to the operating room for an emergent myocardial revascularization surgery. After obtaining consent the patient was taken to the operating room where Dr. Lujan performed an emergent coronary artery bypass grafting 4 using the left internal mammary artery to the left anterior descending coronary artery, a reverse greater saphenous vein graft from the aorta to the distal posterior descending coronary artery, a reverse greater saphenous vein graft from the aorta to the ramus intermedius port artery artery, reverse greater saphenous vein graft from the aorta to the second diagonal coronary artery, endoscopic harvesting of her right greater saphenous vein, intraoperative transesophageal echocardiogram and epi-aortic scanning and Intraoperative graft flow measurement using the Web and Rank system. The patient was subsequently transferred to the cardiovascular intensive care unit where she had somewhat of a stormy recovery requiring prolonged mechanical ventilation support secondary to hemodynamic instability, and acute hypoxic respiratory failure. She subsequently underwent a tracheostomy placement due to her ventilator dependence and PEG tube placement for nutritional support. She did have a bronchoscopy with bronchial alveolar lavage with her culture showing Enterobacter Cloacae which has been treated accordingly. Her sedation has been weaned off and she has been following some simple commands appropriately, nodding her head yes and no appropriately to questions and moving all 4 extremities with weak movements. Physical therapy and occupational therapy have followed the patient, the patient has not been able to assist in active range of motion. The patient's invasive lines have been discontinued, although a left basilic vein PICC line remains for IV antibiotic treatments. Due to the complexity of the patient's recovery the patient will be transferred to for further rehabilitation needs. The patient's family has received discharge instructions. COMPLICATIONS: Postoperative period was complicated by prolonged mechanical ventilation secondary to hemodynamic instability and acute hypoxic respiratory failure which required a tracheostomy placement and PEG tube placement for nutritional support. Her postoperative. Was also complicated by postoperative atrial fibrillation which was treated accordingly. Postoperative left lower lobe pneumonia with a sputum culture showing Enterobacter Cloacae, she is currently on meropenem antibiotic, and postoperative blood loss anemia, a potential outcome of surgery. CONSULTATIONS: 1. Dr. Oliveros for cardiology management. 2. Dr. Stovall for medical management. 3. Dr. Mari for pulmonary and ventilator management. 4. Dr. Zbigniew Freitas for general surgery management (PEG tube placement). 5. Dr. Bond for neurology management. DISCHARGE INSTRUCTIONS: 1. Physical therapy and occupational therapy to evaluate and treat. 2. Respiratory therapy to evaluate and treat. 3. Routine PICC line care. 4. DIVINE/ SCD's hose are to be worn for 30 days or until physician discontinues. 5. Heart hugger surgery support bra is to be worn 100% of the time until physician discontinues.(except when showering) 6. No lifting, pushing, or pulling more than 10 pounds for 12 weeks. The physician will advise of any restriction changes. 7. Routine tracheostomy care. 8. Continue pain control per as needed orders. 9. Routine sternal incision care, no ointments, lotions or powders on the incisions. No chlorhexidine on sternal incision due to Dermabond dressing. Dermabond dressing can be removed 30 days postop. 10. Please notify surgeon/nurse practitioner for temperature greater than 101F or purulent drainage from incisions 13. A red arm and has been placed on this patient it should be worn for 30 days post surgery and will be removed by the cardiothoracic surgeons. If an ER visit is necessary, please make sure the number on the red arm band is called. 14. Accu-Cheks every 4 hours and when necessary follow sliding scale. 15. Vital high-protein to feeding 1.0 Aldo at 56 mL per hour goal rate with 200 mL H2O free water flushes every 6 hours. REHAB NURSING SERVICES TO PROVIDE: RN SKILLED HOME CARE SERVICES FOR POST-OP SURGICAL PATIENTS WITH THE FOLLOWING: Coronary Artery Bypass Surgery (CABG), Mitral Valve Replacement/ Repair ( MVR), Aortic Valve Replacement/Repair (AVR) RN TO CONTINUE EDUCATION FROM ``ROAD TO A HEALTH HEART PATIENT EDUCATION MANUAL" (GIVEN TO PATIENT IN THE HOSPITAL) MEDICATION RECONCILIATION WITH EDUCATION NEEDED ON FIRST HOME VISIT EMPHASIZE IMPORTANCE OF WEARING BREAST SUPPORT/HEART HUGGER ENCOURAGE USE OF INCENTIVE SPIROMETER 10 X EVERY HOUR WHILE AWAKE ENCOURAGE UTILIZATION OF LOWER EXTREMITY COMPRESSION STOCKINGS/DIVINE HOSE and ELEVATE LEGS ABOVE LEVEL OF HEART WHILE AT REST. ENCOURAGE AMBULATION 3-5x/day INCREASING TOLERATES, WHILE AVOID EXTREMES IN TEMPERATURE FREQUENCY: RN TO OPEN THE PATIENT WITHIN 24 HOURS OF DISCHARGE FROM THE HOSPITAL WITH TELEHEALTH INSTALLED AT [facility] [place], RN TO VISIT 2-3 X A WEEK FOR 4 WEEKS ESTABLISHED BY PATIENT NEEDS. LABORATORY: CBC, CMP TO BE DRAWN ON 06/19/2017. TELEHEALTH PARAMETERS: WEIGHT: NOTIFY MD OF WEIGHT GAIN OF 2 LBS IN 24 HOURS OR 5 LBS IN ONE WEEK HR: NOTIFY MD OF HR <55 BPM OR HR>100 BPM BP: NOTIFY MD IF BP <90/55 OR BP>140/100 O2 SAT: NOTIFY MD IF PO2<93% ON ROOM AIR Plan - Discharge Summary Discharge Rx Participant: No New Discharge Prescriptions: New Acetaminophen Tab [Tylenol] 1,000 mg PO Q6HR PRN tab PRN Reason: Fever And/ Or Pain Ondansetron [Zofran] 4 mg IVP Q6HR PRN vial PRN Reason: Nausea And Vomiting Meropenem [Merrem] 1 gm IVPB Q8HR 4 Days vial Amiodarone [Cordarone] 200 mg PEG/G-TUBE DAILY tab amLODIPine [Norvasc] 5 mg PO DAILY tab Apixaban [Eliquis] 5 mg PEG/G-TUBE BID tab Ascorbic Acid [Vitamin C] 500 mg PEG/G-TUBE BID tab Aspirin 81 mg PO DAILY chew Atorvastatin [Lipitor] 40 mg PEG/G-TUBE DAILY tab Bisacodyl [Dulcolax] 10 mg RECTAL DAILY PRN supp PRN Reason: Constipation Budesonide [Pulmicort] 1 mg INHALATION RT-BID nebu Chlorhexidine Gluconate [Peridex] 15 ml MUCOUS MEM BID solution Digoxin [Lanoxin] 125 mcg PEG/G-TUBE DAILY tab Ferrous Sulfate Oral Elixir [Feosol Liquid] 300 mg OG-TUBE BID-W/MEALS ml Insulin Aspart [NovoLOG (formulary)] 0 unit SQ Q4H vial Insulin Detemir [Levemir] 60 unit SQ DAILY syr Ipratropium-Albuterol Nebulize [Duoneb 0.5 mg-3 mg/3 ml Soln] 3 ml INHALATION RT-Q2H PRN ampul.neb PRN Reason: Shortness Of Breath Or Wheezing Ipratropium-Albuterol Nebulize [Duoneb 0.5 mg-3 mg/3 ml Soln] 3 ml INHALATION RT-Q4H ampul.neb Lisinopril [Zestril] 10 mg PEG/G-TUBE DAILY tab Magnesium Hydroxide [Milk of Magnesia Concentrate] 2,400 mg PO BID PRN ml PRN Reason: Constipation Metoprolol Tartrate [Lopressor] 100 mg PEG/G-TUBE BID tab Montelukast [Singulair] 10 mg PEG/G-TUBE HS tab Sennosides-Docusate Sodium [Senokot-S] 2 each PEG/G-TUBE HS tab Changed Anastrozole [Arimidex] 1 mg PEG/G-TUBE DAILY #0 Omeprazole 20 mg PEG/G-TUBE BID #0 Discontinued Ramipril 10 mg PO BID Albuterol Sulfate [Proair Hfa] 2 puff INHALATION RT-Q4H PRN PRN Reason: Shortness Of Breath Insulin Aspart [Novolog Flexpen] 6 unit SQ W/LUNCH Insulin Aspart [Novolog Flexpen] 8 unit SQ BID metFORMIN HCL 1,000 mg PO BID Montelukast [Singulair] 10 mg PO HS Metoprolol Tartrate [Lopressor] 50 mg PO DAILY Lisinopril [Zestril] 20 mg PO DAILY Isosorbide Mononitrate ER [Imdur] 60 mg PO DAILY Insulin Glargine,Hum.rec.anlog [Lantus Solostar] 60 unit SQ DAILY Ipratropium-Albuterol Nebulize [Duoneb 0.5 mg-3 mg/3 ml Soln] 3 ml INHALATION RT-TID Furosemide [Lasix] 40 mg PO DAILY cloNIDine HCL [Catapres] 0.1 mg PO DAILY Clopidogrel [Plavix] 75 mg PO DAILY Budesonide [Pulmicort] 0.5 mg INHALATION RT-BID Atorvastatin [Lipitor] 40 mg PO HS amLODIPine BESYLATE [Norvasc] 5 mg PO DAILY Atorvastatin [Lipitor] 20 mg PO HS Aspirin [Adult Low Dose Aspirin EC] 81 mg PO DAILY ALPRAZolam [Xanax] 0.25 mg PO Q6HR PRN PRN Reason: Anxiety Alendronate Sodium [Fosamax] 70 mg PO CARPENTER Discharge Medication List Acetaminophen Tab [Tylenol] 1,000 mg PO Q6HR PRN tab 06/18/17 [Rx] Amiodarone [Cordarone] 200 mg PEG/G-TUBE DAILY tab 06/18/17 [Rx] Anastrozole [Arimidex] 1 mg PEG/G-TUBE DAILY #0 06/18/17 [Rx] Apixaban [Eliquis] 5 mg PEG/G-TUBE BID tab 06/18/17 [Rx] Ascorbic Acid [Vitamin C] 500 mg PEG/G-TUBE BID tab 06/18/17 [Rx] Aspirin 81 mg PO DAILY chew 06/18/17 [Rx] Atorvastatin [Lipitor] 40 mg PEG/G-TUBE DAILY tab 06/18/17 [Rx] Bisacodyl [Dulcolax] 10 mg RECTAL DAILY PRN supp 06/18/17 [Rx] Budesonide [Pulmicort] 1 mg INHALATION RT-BID nebu 06/18/17 [Rx] Chlorhexidine Gluconate [Peridex] 15 ml MUCOUS MEM BID solution 06/18/17 [Rx] Digoxin [Lanoxin] 125 mcg PEG/G-TUBE DAILY tab 06/18/17 [Rx] Ferrous Sulfate Oral Elixir [Feosol Liquid] 300 mg OG-TUBE BID-W/MEALS ml 06/18 [Rx] Insulin Aspart [NovoLOG (formulary)] 0 unit SQ Q4H vial 06/18/17 [Rx] Insulin Detemir [Levemir] 60 unit SQ DAILY syr 06/18/17 [Rx] Ipratropium-Albuterol Nebulize [Duoneb 0.5 mg-3 mg/3 ml Soln] 3 ml INHALATION RT -Q2H PRN ampul.neb 06/18/17 [Rx] Ipratropium-Albuterol Nebulize [Duoneb 0.5 mg-3 mg/3 ml Soln] 3 ml INHALATION RT -Q4H ampul.neb 06/18/17 [Rx] Lisinopril [Zestril] 10 mg PEG/G-TUBE DAILY tab 06/18/17 [Rx] Magnesium Hydroxide [Milk of Magnesia Concentrate] 2,400 mg PO BID PRN ml 06/18 [Rx] Meropenem [Merrem] 1 gm IVPB Q8HR 4 Days vial 06/18/17 [Rx] Metoprolol Tartrate [Lopressor] 100 mg PEG/G-TUBE BID tab 06/18/17 [Rx] Montelukast [Singulair] 10 mg PEG/G-TUBE HS tab 06/18/17 [Rx] Omeprazole 20 mg PEG/G-TUBE BID #0 06/18/17 [Rx] Ondansetron [Zofran] 4 mg IVP Q6HR PRN vial 06/18/17 [Rx] Sennosides-Docusate Sodium [Senokot-S] 2 each PEG/G-TUBE HS tab 06/18/17 [Rx] amLODIPine [Norvasc] 5 mg PO DAILY tab 06/18/17 [Rx] Follow up Appointment(s)/Referral(s): Melodie Oliveros MD [STAFF PHYSICIAN] - 2 Weeks Fabi Lujan MD [STAFF PHYSICIAN] - 3 Weeks Pretty Howell MD [Primary Care Provider] - 2 Weeks Ana Mari MD [STAFF PHYSICIAN] - 2 Weeks Patient Instructions/Handouts: Heart Healthy Diet (DC), Coronary Artery Bypass Graft (DC), After Radial Heart Catheterization (GEN) Activity/Diet/Wound Care/Special Instructions: Home Care - [facility] - [phone]
--- NOTE | 2017-06-18 22:17 | PN ---
PROGRESS NOTE DATE OF SERVICE: June 18, 2017. PRESENTING COMPLAINT: Tired. INTERVAL HISTORY: The patient with known coronary artery disease, presented with acute MS. Subsequently had a cardiac arrest with VFib on the floor and finally ended up having a 4-vessel coronary bypass. The patient this morning remains on the ventilator, getting CPAP. Also getting tracheostomy and PEG tube feeding. The patient is awake, following commands. The patient was taken off the insulin drip this morning, atrial flutter fibrillation much better controlled. REVIEW OF SYSTEMS: Patient is on tracheostomy. Current medications reviewed. On examination: Temperature 98.8, pulse 82, respiratory rate 28, blood pressure 91/51, arterial blood pressure is 149/65, pulse ox 100% on 50% FiO2. GENERAL APPEARANCE: Sitting up tired-appearing, awake. EYES: Pupils equal. Conjunctivae normal. HEENT: External appearance of nose and ears normal. Oral cavity dry. Neck tracheostomy in place. JVD unable to assess. Respiratory effort normal. Lungs distant breath sounds. Cardiovascular. HEART: Sounds irregular. Some edema. ABDOMEN: Soft, nontender. Liver and spleen not palpable. Neurological: Moving her limbs slightly following commands. Pupils are equal. INVESTIGATIONS: Accu-Cheks noted. ASSESSMENT: 1. Four vessel coronary bypass. 2. Coronary artery disease with prior history of stent, presented with acute myocardial infarction on this admission followed by cardiac arrest on the floor with ventricular fibrillation. 3. Morbid obesity BMI greater than 50. 4. Intermittent asthma. 5. Diabetes mellitus type 2, chronically on insulin, the patient is switched over from insulin drip to Lantus this morning. 6. Gastroesophageal reflux disease. 7. Hyperlipidemia. 8. Obstructive sleep apnea uses CPAP until recently. 9. Right mastectomy with cancer. 10.Right axillary lesion, being followed as an outpatient. 11.Bilateral nephrolithiasis asymptomatic. 12.Left adrenal nodule 2.5 cm. 13.Hypertensive heart disease. 14.Acute hypoxic respiratory failure on ventilator. 15.Acute blood loss anemia expected from surgery, status post blood transfusion. 16.Hypoalbuminemia as an acute phase reactant. 17.Persistent atrial flutter fibrillation. 18.Left basal pneumonia with cultures growing Enterobacter cloacae. 19.Hyponatremia and hypochloremia increase BUN. Suspect volume contraction with metabolic alkalosis. PLAN: Volume status was discussed with Dr. Mari. The patient apparently will be transferred to a long-term ventilator care. Antibiotics are to be directed by Pulmonary. Accu-Cheks are to be followed. Prognosis is guarded. Thank you, Dr. Lujan. ARMANDO / KAYLEE: [id number] /
== END 2017-06-18 16:43 | DRG 3 ==
LOC: 6SEL 13:43 → 6ICU 06-01 23:14
PROVIDERS: ADMIT Surgery; ATTEND Surgery
PROC: 4A023N7 Measurement of Cardiac Sampling and Pressure, Left Heart, Percutaneous Approach (ICD-10-PCS; 2017-05-29)
PROC: B2111ZZ Fluoroscopy of Multiple Coronary Arteries using Low Osmolar Contrast (ICD-10-PCS; 2017-05-29)
PROC: B2151ZZ Fluoroscopy of Left Heart using Low Osmolar Contrast (ICD-10-PCS; 2017-05-29)
PROC: 5A1955Z Respiratory Ventilation, Greater than 96 Consecutive Hours (ICD-10-PCS; 2017-06-01)
PROC: 0BH17EZ Insertion of Endotracheal Airway into Trachea, Via Natural or Artificial Opening (ICD-10-PCS; 2017-06-01)
PROC: 02100Z9 Bypass Coronary Artery, One Artery from Left Internal Mammary, Open Approach (ICD-10-PCS; 2017-06-02)
PROC: 06BP4ZZ Excision of Right Saphenous Vein, Percutaneous Endoscopic Approach (ICD-10-PCS; 2017-06-02)
PROC: 5A1221Z Performance of Cardiac Output, Continuous (ICD-10-PCS; 2017-06-02)
PROC: 30243N1 Transfusion of Nonautologous Red Blood Cells into Central Vein, Percutaneous Approach (ICD-10-PCS; 2017-06-02)
PROC: 021209W Bypass Coronary Artery, Three Arteries from Aorta with Autologous Venous Tissue, Open Approach (ICD-10-PCS; principal; 2017-06-02 14:00)
PROC: 0B9J8ZX Drainage of Left Lower Lung Lobe, Via Natural or Artificial Opening Endoscopic, Diagnostic (ICD-10-PCS; 2017-06-05)
PROC: 0B9F8ZX Drainage of Right Lower Lung Lobe, Via Natural or Artificial Opening Endoscopic, Diagnostic (ICD-10-PCS; 2017-06-05)
PROC: 02HV33Z Insertion of Infusion Device into Superior Vena Cava, Percutaneous Approach (ICD-10-PCS; 2017-06-05)
PROC: 03HC33Z Insertion of Infusion Device into Left Radial Artery, Percutaneous Approach (ICD-10-PCS; 2017-06-06)
PROC: 0B110F4 Bypass Trachea to Cutaneous with Tracheostomy Device, Open Approach (ICD-10-PCS; 2017-06-14)
PROC: 0DH63UZ Insertion of Feeding Device into Stomach, Percutaneous Approach (ICD-10-PCS; 2017-06-14)
DX: I21.4 Non-ST elevation (NSTEMI) myocardial infarction (principal); G92 Toxic encephalopathy; J15.6 Pneumonia due to other Gram-negative bacteria; J96.21 Acute and chronic respiratory failure with hypoxia; I46.9 Cardiac arrest, cause unspecified; I49.01 Ventricular fibrillation; E87.4 Mixed disorder of acid-base balance; G93.1 Anoxic brain damage, not elsewhere classified; D62 Acute posthemorrhagic anemia; Z99.11 Dependence on respirator [ventilator] status; I48.1 Persistent atrial fibrillation; I48.92 Unspecified atrial flutter; E87.0 Hyperosmolality and hypernatremia; E66.2 Morbid (severe) obesity with alveolar hypoventilation; J44.0 Chronic obstructive pulmonary disease with (acute) lower respiratory infection; J98.11 Atelectasis; T81.30XA Disruption of wound, unspecified, initial encounter; D69.59 Other secondary thrombocytopenia; E11.649 Type 2 diabetes mellitus with hypoglycemia without coma; I48.0 Paroxysmal atrial fibrillation; I48.2 Chronic atrial fibrillation; E11.65 Type 2 diabetes mellitus with hyperglycemia; E27.8 Other specified disorders of adrenal gland; E87.8 Other disorders of electrolyte and fluid balance, not elsewhere classified; B43.2 Subcutaneous pheomycotic abscess and cyst; E88.09 Other disorders of plasma-protein metabolism, not elsewhere classified; F17.201 Nicotine dependence, unspecified, in remission; F41.9 Anxiety disorder, unspecified; I08.1 Rheumatic disorders of both mitral and tricuspid valves; I25.10 Atherosclerotic heart disease of native coronary artery without angina pectoris; I25.2 Old myocardial infarction; I44.7 Left bundle-branch block, unspecified; I11.0 Hypertensive heart disease with heart failure; J45.20 Mild intermittent asthma, uncomplicated; K21.9 Gastro-esophageal reflux disease without esophagitis; N20.0 Calculus of kidney; E78.2 Mixed hyperlipidemia; Z68.43 Body mass index [BMI] 50.0-59.9, adult; Z95.5 Presence of coronary angioplasty implant and graft; Z90.710 Acquired absence of both cervix and uterus; Z90.11 Acquired absence of right breast and nipple; Z87.01 Personal history of pneumonia (recurrent); Z85.3 Personal history of malignant neoplasm of breast; Z79.02 Long term (current) use of antithrombotics/antiplatelets; Z79.4 Long term (current) use of insulin; Z79.811 Long term (current) use of aromatase inhibitors; Z79.82 Long term (current) use of aspirin; Z79.83 Long term (current) use of bisphosphonates; Z79.899 Other long term (current) drug therapy; Z88.0 Allergy status to penicillin; Z82.49 Family history of ischemic heart disease and other diseases of the circulatory system
CPT/HCPCS: 31624; 36569; 36600; 43246; 70450; 71045; 71046; 71250; 76937; 80048; 80051; 80053; 80061; 80074; 81003; 82330; 82553; 82805; 83036; 83735; 83880; 84100; 84132; 84295; 84443; 84484; 85025; 85027; 85520; 85610; 85730; 86850; 86891; 86900; 86901; 86920; 87040; 87070; 87077; 87086; 87102; 87186; 87205; 88108; 88305; 89050; 93306; 93458; 93880; 93970; 94002; 94003; 94150; 94640; 94760; 95819

== ENCOUNTER 2018-06-19 14:42 | Emergency (ER) | payer MEDICARE, BC, OTHER ==
[2018-06-19 14:59] VITALS: TEMP 98
--- NOTE | 2018-06-19 15:25 | ED ---
Fall HPI - General Chief Complaint: Fall Stated Complaint: Fall Time Seen by Provider: 06/19/18 15:05 Source: patient, EMS, RN notes reviewed Mode of arrival: EMS Limitations: no limitations - History of Present Illness Initial Comments: 67-year-old female presents emergency department via EMS with chief complaint of fall. Patient states that in her best and is not a large amount of room between the bathroom wall and toilet. Patient states she got her walker stuck states that she twisted. Patient states she fell down to her knees and was unable to get up. EMS was called at that time. Patient had no head injury no loss conscious no extremity pain and upper arms. She did have mild knee pain but states that all of her knee pain has resolved. She always uses a walker or her wheelchair to ambulate. Patient states that she was told she had a come because she is on Eliquis though again she did not hit her head or have any other notable injuries. - Related Data Previous Rx's Medication Instructions Recorded Acetaminophen Tab [Tylenol] 1,000 mg PO Q6HR PRN tab 06/18/17 Amiodarone [Cordarone] 200 mg PEG/G-TUBE DAILY tab 06/18/17 Anastrozole [Arimidex] 1 mg PEG/G-TUBE DAILY #0 06/18/17 Apixaban [Eliquis] 5 mg PEG/G-TUBE BID tab 06/18/17 Ascorbic Acid [Vitamin C] 500 mg PEG/G-TUBE BID tab 06/18/17 Aspirin 81 mg PO DAILY chew 06/18/17 Atorvastatin [Lipitor] 40 mg PEG/G-TUBE DAILY tab 06/18/17 Bisacodyl [Dulcolax] 10 mg RECTAL DAILY PRN supp 06/18/17 Budesonide [Pulmicort] 1 mg INHALATION RT-BID nebu 06/18/17 Chlorhexidine Gluconate [Peridex] 15 ml MUCOUS MEM BID solution 06/18/17 Digoxin [Lanoxin] 125 mcg PEG/G-TUBE DAILY tab 06/18/17 Ferrous Sulfate Oral Elixir 300 mg OG-TUBE BID-W/MEALS ml 06/18/17 [Feosol Liquid] INSULIN ASPART (NovoLOG) [NovoLOG 0 unit SQ Q4H vial 06/18/17 (formulary)] Insulin Detemir (Levemir) [Levemir] 60 unit SQ DAILY syr 06/18/17 Ipratropium-Albuterol Nebulize 3 ml INHALATION RT-Q2H PRN 06/18/17 [Duoneb 0.5 mg-3 mg/3 ml Soln] ampul.neb Ipratropium-Albuterol Nebulize 3 ml INHALATION RT-Q4H ampul.neb 06/18/17 [Duoneb 0.5 mg-3 mg/3 ml Soln] Lisinopril [Zestril] 10 mg PEG/G-TUBE DAILY tab 06/18/17 Magnesium Hydroxide [Milk of 2,400 mg PO BID PRN ml 06/18/17 Magnesia Concentrate] Meropenem [Merrem] 1 gm IVPB Q8HR 4 Days vial 06/18/17 Metoprolol Tartrate [Lopressor] 100 mg PEG/G-TUBE BID tab 06/18/17 Montelukast [Singulair] 10 mg PEG/G-TUBE HS tab 06/18/17 Omeprazole 20 mg PEG/G-TUBE BID #0 06/18/17 Ondansetron [Zofran] 4 mg IVP Q6HR PRN vial 06/18/17 Sennosides-Docusate Sodium 2 each PEG/G-TUBE HS tab 06/18/17 [Senokot-S] amLODIPine [Norvasc] 5 mg PO DAILY tab 06/18/17 Allergies Allergy/AdvReac Type Severity Reaction Status Date / Time Penicillins Allergy Severe Rash/Hives Verified 05/28/17 14:15 Review of Systems ROS Statement: Those systems with pertinent positive or pertinent negative responses have been documented in the HPI. ROS Other: All systems not noted in ROS Statement are negative. Past Medical History Past Medical History: Asthma, Coronary Artery Disease (CAD), Cancer, Chest Pain / Angina, COPD, Diabetes Mellitus, GERD/Reflux, Hyperlipidemia, Hypertension, Myocardial Infarction ([place]), Pneumonia, Sleep Apnea/CPAP/BIPAP Additional Past Medical History / Comment(s): Pt states she had pneumonia 03/30/17 and was sent home with home O2 and she felt she had recovered, she then states she started having bilateral lower leg edema/redness with L leg worse, she states she sleeps in a recliner because she coughs too much if she doesn't. She states she started having jaw, chest and L sided back (scapular) pain on and off the past week. Other hx: IDDM type II, [place] in 1998 and 2010, [place] with CPAP but was not able to use since pneumonia so she states equipment company took machine away, R breast cancer with lumpectomy/lymph node removals and had radiation, anemia, unsteady gait. Last Myocardial Infarction Date:: 2010 History of Any Multi-Drug Resistant Organisms: None Reported Past Surgical History: Breast Surgery, Heart Catheterization, Heart Catheterization With Stent, Hysterectomy, Tonsillectomy Additional Past Surgical History / Comment(s): 07/2010 PCI with stent to RCA, R breast lumpectomy/lymph node removals, colonoscopy with benign polypectomies. Past Anesthesia/Blood Transfusion Reactions: No Reported Reaction Additional Past Anesthesia/Blood Transfusion Reaction / Comment(s): Pt states she received blood with hysterectomy without reaction. Date of Last Stent Placement:: 2010 Past Psychological History: Anxiety Smoking Status: Former smoker Past Alcohol Use History: None Reported Past Drug Use History: None Reported - Past Family History Mother Family Medical History: Cancer, Hyperlipidemia, Hypertension Additional Family Medical History / Comment(s): Mother had breast cancer 50 yrs ago. She is living. Father Family Medical History: Diabetes Mellitus Additional Family Medical History / Comment(s): Father is . General Exam Limitations: no limitations General appearance: alert, in no apparent distress Head exam: Present: atraumatic, normocephalic, normal inspection Eye exam: Present: normal appearance, PERRL, EOMI. Absent: scleral icterus, conjunctival injection, periorbital swelling Respiratory exam: Present: normal lung sounds bilaterally. Absent: respiratory distress, wheezes, rales, rhonchi, stridor Cardiovascular Exam: Present: regular rate, normal rhythm, normal heart sounds. Absent: systolic murmur, diastolic murmur, rubs, gallop, clicks GI/Abdominal exam: Present: soft, normal bowel sounds. Absent: distended, tenderness, guarding, rebound, rigid Extremities exam: Present: normal inspection, full ROM, normal capillary refill, other (Knees are nontender full range of motion neurovascular intact upper extremities unremarkable). Absent: tenderness, pedal edema, joint swelling, slava f tenderness Neurological exam: Present: alert, oriented X3, CN II-XII intact, reflexes normal, other (Finger to nose intact bilaterally without over shooting). Absent: motor sensory deficit Skin exam: Present: warm, dry, intact, normal color. Absent: rash Course Vital Signs 06/19/18 14:53 Temperature 98.0 F Pulse Rate 113 H Respiratory 14 Rate Blood Pressure 117/76 O2 Sat by Pulse 99 Oximetry Medical Decision Making - Medical Decision Making 67-year-old female presented to ER for evaluation after a fall. Patient had no notable injuries. Patient was able to family in emergency department no difficulty. Patient will be discharged. Patient had no head injury. Disposition Clinical Impression: Fall Disposition: HOME SELF-CARE Condition: Stable Instructions (If sedation given, give patient instructions): Fall Prevention for Older Adults (ED) Additional Instructions: Please return to the Emergency Department if symptoms worsen or any other concerns. Is patient prescribed a controlled substance at d/c from ED?: No Referrals: Pretty Howell MD [Primary Care Provider] - 1-2 days Time of Disposition: 15:25
[2018-06-19 16:37] VITALS: BP 151/100; PULSE 112; RESP 16
== END 2018-06-19 16:35 | disposition home or self-care (01) ==
LOC: EC 14:42
DX: Z04.3 Encounter for examination and observation following other accident (principal); I25.2 Old myocardial infarction; G47.33 Obstructive sleep apnea (adult) (pediatric); Z99.89 Dependence on other enabling machines and devices; Z95.818 Presence of other cardiac implants and grafts; Z95.5 Presence of coronary angioplasty implant and graft; Z87.891 Personal history of nicotine dependence; Z85.3 Personal history of malignant neoplasm of breast; Z88.0 Allergy status to penicillin; X50.1XXA Overexertion from prolonged static or awkward postures, initial encounter; Y92.002 Bathroom of unspecified non-institutional (private) residence as the place of occurrence of the external cause
CPT/HCPCS: 99283

== ENCOUNTER 2018-09-30 07:30 | Inpatient (IN) | payer MEDICARE, BC, OTHER ==
[2018-09-30] MEDS ORDERED: SODIUM CHLORIDE 0.9% 500 ML 500 ML IV ONE (07:37)
[2018-09-30] MEDS ORDERED: SODIUM CHLORIDE 0.9% 1,000 ML IV ONE (07:37)
--- NOTE | 2018-09-30 07:42 | ED ---
Altered Mental Status HPI - General Stated Complaint: Altered Mental Status Time Seen by Provider: 09/30/18 07:30 Source: patient, EMS, RN notes reviewed, old records reviewed Mode of arrival: EMS - History of Present Illness Initial Comments: This is a 68-year-old female history diabetes a history of frequent falls who apparently fell at 2 AM this morning had listhesis by EMS and was 80 times for she fell again this morning prior to arrival he was noted be somewhat confused and slow to respond slower than normal. She normally does have slow response times to questions but this was increased from normal. She denies any headache fevers chills nausea vomiting sweats her glucose was elevated per EMS no focal signs of weakness and stroke scale was negative per paramedics. No nausea vomiting sweats fevers chills or other symptoms. Per medics the patient does have frequent falls normally she does fall and try to transfer from her wheelchair to a recliner. MD Complaint: confusion - Related Data Home Medications Medication Instructions Recorded Confirmed Albuterol Sulfate [Proair Hfa] 1 - 2 puff INHALATION RT-Q6H PRN 09/30/1811/11 Alendronate Sodium 70 mg PO Q7D 09/30/18 09/30/18 Anastrozole [Arimidex] 1 mg PO DAILY 09/30/18 09/30/18 Apixaban [Eliquis] 5 mg PO DAILY 09/30/18 09/30/18 Atorvastatin [Lipitor] 40 mg PO DAILY 09/30/18 09/30/18 FLUoxetine HCL [PROzac] 20 mg PO DAILY 09/30/18 09/30/18 Famotidine [Pepcid] 20 mg PO BID 09/30/18 09/30/18 Furosemide [Lasix] 40 mg PO DAILY 09/30/18 09/30/18 HYDROcodone/APAP 5-325MG [Ponder 1 tab PO BID PRN 09/30/18 09/30/18 5-325] Insulin Aspart [NovoLOG Flexpen] 28 units SQ AC-TID 09/30/18 09/30/18 Insulin Glargine [Lantus] 25 unit SQ HS 09/30/18 09/30/18 Lisinopril [Zestril] 10 mg PO DAILY 09/30/18 09/30/18 Metoprolol Tartrate [Lopressor] 50 mg PO DAILY 09/30/18 09/30/18 Montelukast [Singulair] 10 mg PO HS 09/30/18 09/30/18 Potassium Chloride ER [K-Dur 20] 20 meq PO DAILY 09/30/18 09/30/18 Sennosides-Docusate Sodium 1 tab PO HS 09/30/18 09/30/18 [Senokot-S] amLODIPine [Norvasc] 10 mg PO DAILY 09/30/18 09/30/18 metFORMIN HCL 1,000 mg PO BID 09/30/18 09/30/18 Previous Rx's Medication Instructions Recorded Budesonide [Pulmicort] 1 mg INHALATION RT-BID nebu 06/18/17 Ipratropium-Albuterol Nebulize 3 ml INHALATION RT-Q4H ampul.neb 06/18/17 [Duoneb 0.5 mg-3 mg/3 ml Soln] Allergies Allergy/AdvReac Type Severity Reaction Status Date / Time Penicillins Allergy Severe Rash/Hives Verified 09/30/18 08:54 Review of Systems ROS Statement: Those systems with pertinent positive or pertinent negative responses have been documented in the HPI. ROS Other: All systems not noted in ROS Statement are negative. Past Medical History Past Medical History: Asthma, Coronary Artery Disease (CAD), Cancer, Chest Pain / Angina, COPD, Diabetes Mellitus, GERD/Reflux, Hyperlipidemia, Hypertension, Myocardial Infarction ([place]), Pneumonia, Sleep Apnea/CPAP/BIPAP Additional Past Medical History / Comment(s): Pt states she had pneumonia 03/30/17 and was sent home with home O2 and she felt she had recovered, she then states she started having bilateral lower leg edema/redness with L leg worse, she states she sleeps in a recliner because she coughs too much if she doesn't. She states she started having jaw, chest and L sided back (scapular) pain on and off the past week. Other hx: IDDM type II, [place] in 1998 and 2010, [place] with CPAP but was not able to use since pneumonia so she states equipment company took machine away, R breast cancer with lumpectomy/lymph node removals and had radiation, anemia, unsteady gait. Last Myocardial Infarction Date:: 2010 History of Any Multi-Drug Resistant Organisms: None Reported Past Surgical History: Breast Surgery, Heart Catheterization, Heart Catheterization With Stent, Hysterectomy, Tonsillectomy Additional Past Surgical History / Comment(s): 07/2010 PCI with stent to RCA, R breast lumpectomy/lymph node removals, colonoscopy with benign polypectomies. Past Anesthesia/Blood Transfusion Reactions: No Reported Reaction Additional Past Anesthesia/Blood Transfusion Reaction / Comment(s): Pt states she received blood with hysterectomy without reaction. Date of Last Stent Placement:: 2010 Past Psychological History: Anxiety Smoking Status: Former smoker Past Alcohol Use History: None Reported Past Drug Use History: None Reported - Past Family History Mother Family Medical History: Cancer, Hyperlipidemia, Hypertension Additional Family Medical History / Comment(s): Mother had breast cancer 50 yrs ago. She is living. Father Family Medical History: Diabetes Mellitus Additional Family Medical History / Comment(s): Father is . General Exam - General Exam Comments Initial Comments: This is a well-developed well-nourished awake alert oriented 3 female Limitations: physical limitation General appearance: alert, in no apparent distress Head exam: Present: atraumatic, normocephalic, normal inspection Eye exam: Present: normal appearance, PERRL, EOMI. Absent: scleral icterus, conjunctival injection, periorbital swelling ENT exam: Present: mucous membranes dry Neck exam: Present: normal inspection. Absent: tenderness, meningismus, lymphad enopathy Respiratory exam: Present: normal lung sounds bilaterally. Absent: respiratory distress, wheezes, rales, rhonchi, stridor Cardiovascular Exam: Present: regular rate, normal rhythm, normal heart sounds. Absent: systolic murmur, diastolic murmur, rubs, gallop, clicks GI/Abdominal exam: Present: soft, normal bowel sounds. Absent: distended, tenderness, guarding, rebound, rigid Extremities exam: Present: normal inspection, full ROM, normal capillary refill. Absent: tenderness, pedal edema, joint swelling, calf tenderness Back exam: Present: normal inspection Neurological exam: Present: alert, oriented X3, CN II-XII intact Psychiatric exam: Present: normal affect, normal mood Skin exam: Present: warm, dry, intact, normal color. Absent: rash Course Vital Signs 09/30/18 07:38 Temperature 98.6 F Pulse Rate 83 Respiratory 16 Rate Blood Pressure 141/95 O2 Sat by Pulse 95 Oximetry - Reevaluation(s) Reevaluation #1: 09/30/18 10:13 Reevaluation patient reveals that she is feeling improved I did discuss the findings with patient's family members who does states she's still a little bit confused compared to normal. Medical Decision Making - Medical Decision Making I did discuss findings with patient family members. Across patient will be admitted she has demonstrate evidence of dehydration as well as cognitive dysfunction she will be admitted with neurology consultation. - Lab Data Result diagrams: 09/30/18 07:55 09/30/18 07:55 Lab Results 09/30/18 09/30/18 09/30/18 Range/Units 07:55 07:55 07:55 WBC 7.9 (3.8-10.6) k/uL RBC 4.63 (3.80-5.40) m/uL Hgb 13.5 (11.4-16.0) gm/dL Hct 42.0 (34.0-46.0) % MCV 90.6 (80.0-100.0) fL MCH 29.1 (25.0-35.0) pg MCHC 32.1 (31.0-37.0) g/dL RDW 13.7 (11.5-15.5) % Plt Count 208 (150-450) k/uL Neutrophils % 77 % Lymphocytes % 13 % Monocytes % 4 % Eosinophils % 3 % Basophils % 1 % Neutrophils # 6.1 (1.3-7.7) k/uL Lymphocytes # 1.0 (1.0-4.8) k/uL Monocytes # 0.3 (0-1.0) k/uL Eosinophils # 0.2 (0-0.7) k/uL Basophils # 0.1 (0-0.2) k/uL PT (9.0-12.0) sec INR (<1.2) APTT (22.0-30.0) sec Sodium 139 (137-145) mmol/L Potassium 4.3 (3.5-5.1) mmol/L Chloride 104 (98-107) mmol/L Carbon Dioxide 25 (22-30) mmol/L Anion Gap 10 mmol/L BUN 22 H (7-17) mg/dL Creatinine 0.80 (0.52-1.04) mg/dL Est GFR (CKD-EPI)AfAm 88 (>60 ml/min/1.73 sqM) Est GFR (CKD-EPI)NonAf 76 (>60 ml/min/1.73 sqM) Glucose 209 H (74-99) mg/dL Calcium 10.6 H (8.4-10.2) mg/dL Total Bilirubin 0.8 (0.2-1.3) mg/dL AST 27 (14-36) U/L ALT 30 (9-52) U/L Alkaline Phosphatase 91 (38-126) U/L Ammonia <9 (<30) umol/L Creatine Kinase 73 (30-135) U/L Troponin I (0.000-0.034) ng/mL Total Protein 6.9 (6.3-8.2) g/dL Albumin 3.9 (3.5-5.0) g/dL Urine Color Urine Appearance (Clear) Urine pH (5.0-8.0) Ur Specific [place] (1.001-1.035) Urine Protein (Negative) Urine Glucose (UA) (Negative) Urine Ketones (Negative) Urine Blood (Negative) Urine Nitrite (Negative) Urine Bilirubin (Negative) Urine Urobilinogen (<2.0) mg/dL Ur Leukocyte Esterase (Negative) Urine WBC (0-5) /hpf Ur Squamous Epith Cells (0-4) /hpf Amorphous Sediment (None) /hpf Urine Mucus (None) /hpf Urine Opiates Screen (NotDetected) Ur Oxycodone Screen (NotDetected) Urine Methadone Screen (NotDetected) Ur Propoxyphene Screen (NotDetected) Ur Barbiturates Screen (NotDetected) U Tricyclic Antidepress (NotDetected) Ur Phencyclidine Scrn (NotDetected) Ur Amphetamines Screen (NotDetected) U Methamphetamines Scrn (NotDetected) U Benzodiazepines Scrn (NotDetected) Urine Cocaine Screen (NotDetected) U Marijuana (THC) Screen (NotDetected) 09/30/18 09/30/18 09/30/18 Range/Units 07:55 07:55 07:55 WBC (3.8-10.6) k/uL RBC (3.80-5.40) m/uL Hgb (11.4-16.0) gm/dL Hct (34.0-46.0) % MCV (80.0-100.0) fL MCH (25.0-35.0) pg MCHC (31.0-37.0) g/dL RDW (11.5-15.5) % Plt Count (150-450) k/uL Neutrophils % % Lymphocytes % % Monocytes % % Eosinophils % % Basophils % % Neutrophils # (1.3-7.7) k/uL Lymphocytes # (1.0-4.8) k/uL Monocytes # (0-1.0) k/uL Eosinophils # (0-0.7) k/uL Basophils # (0-0.2) k/uL PT 9.9 (9.0-12.0) sec INR 0.9 (<1.2) APTT 22.2 (22.0-30.0) sec Sodium (137-145) mmol/L Potassium (3.5-5.1) mmol/L Chloride (98-107) mmol/L Carbon Dioxide (22-30) mmol/L Anion Gap mmol/L BUN (7-17) mg/dL Creatinine (0.52-1.04) mg/dL Est GFR (CKD-EPI)AfAm (>60 ml/min/1.73 sqM) Est GFR (CKD-EPI)NonAf (>60 ml/min/1.73 sqM) Glucose (74-99) mg/dL Calcium (8.4-10.2) mg/dL Total Bilirubin (0.2-1.3) mg/dL AST (14-36) U/L ALT (9-52) U/L Alkaline Phosphatase (38-126) U/L Ammonia (<30) umol/L Creatine Kinase (30-135) U/L Troponin I 0.023 (0.000-0.034) ng/mL Total Protein (6.3-8.2) g/dL Albumin (3.5-5.0) g/dL Urine Color Yellow Urine Appearance Clear (Clear) Urine pH 6.5 (5.0-8.0) Ur Specific [place] 1.020 (1.001-1.035) Urine Protein 1+ H (Negative) Urine Glucose (UA) 2+ H (Negative) Urine Ketones Negative (Negative) Urine Blood Negative (Negative) Urine Nitrite Negative (Negative) Urine Bilirubin Negative (Negative) Urine Urobilinogen <2.0 (<2.0) mg/dL Ur Leukocyte Esterase Negative (Negative) Urine WBC 2 (0-5) /hpf Ur Squamous Epith Cells 1 (0-4) /hpf Amorphous Sediment Occasional H (None) /hpf Urine Mucus Rare H (None) /hpf Urine Opiates Screen Detected H (NotDetected) Ur Oxycodone Screen Not Detected (NotDetected) Urine Methadone Screen Not Detected (NotDetected) Ur Propoxyphene Screen Not Detected (NotDetected) Ur Barbiturates Screen Not Detected (NotDetected) U Tricyclic Antidepress Not Detected (NotDetected) Ur Phencyclidine Scrn Not Detected (NotDetected) Ur Amphetamines Screen Not Detected (NotDetected) U Methamphetamines Scrn Not Detected (NotDetected) U Benzodiazepines Scrn Not Detected (NotDetected) Urine Cocaine Screen Not Detected (NotDetected) U Marijuana (THC) Screen Not Detected (NotDetected) - EKG Data -: EKG Interpreted by [place] EKG shows normal: sinus rhythm (Sinus rhythm 85 NJ interval 192 QRS 98 QT since QTC 390/473 left exodeviation LVH noted nonspecific inferior changes) - Radiology Data Radiology results: report reviewed (I did review the imaging and report no acute findings however this appears be some progression of disease noted on CAT scan.), image reviewed Disposition Clinical Impression: Delirium due to general medical condition, Dehydration, Confusion state Disposition: ADMITTED IP TO THIS [facility] Condition: Fair Referrals: Pretty Howell MD [Primary Care Provider] - 1-2 days
[2018-09-30 08:17] LABS: Basophils # (A) 0.1 k/uL (0-0.2); Basophils % (A) 1 %; Eosinophils # (A) 0.2 k/uL (0-0.7); Eosinophils % (A) 3 %; HGB 13.5 gm/dL (11.4-16.0); Lymphocytes % (A) 13 %; MCH 29.1 pg (25.0-35.0); MCHC 32.1 g/dL (31.0-37.0); MCV 90.6 fL (80.0-100.0); Mean Platelet Volume 7.6; Monocytes # (A) 0.3 k/uL (0-1.0); Monocytes % (A) 4 %; Neutrophils # (A) 6.1 k/uL (1.3-7.7); Neutrophils % (A) 77 %; Platelet Count 208 k/uL (150-450); RBC 4.63 m/uL (3.80-5.40); RDW 13.7 % (11.5-15.5); WBC 7.9 k/uL (3.8-10.6)
[2018-09-30 08:26] LABS: INR 0.9 (<1.2); Partial Thromboplastin Time 22.2 sec (22.0-30.0); Prothrombin Time 9.9 sec (9.0-12.0)
[2018-09-30 08:27] LABS: Amorphous Sediment,Urine Occasional /hpf; Appearance,Urine Clear (Clear); Bilirubin,Urine Negative (Negative); Blood,Urine Negative (Negative); Color,Urine Yellow; Glucose,Urine (UA) 2+ (Negative); Ketones,Urine Negative (Negative); Leukocyte Esterase,Urine Negative (Negative); Mucus,Urine Rare /hpf; Nitrite,Urine Negative (Negative); PH, Urine 6.5 (5.0-8.0); Protein,Urine 1+ (Negative); Squamous Epithelial Cell,Urine 1 /hpf (0-4); Urobilinogen,Urine <2.0 mg/dL (<2.0)
[2018-09-30 08:29] LABS: Albumin 3.9 g/dL (3.5-5.0); Calcium 10.6 mg/dL (8.4-10.2); Potassium 4.3 mmol/L (3.5-5.1); Total Bilirubin 0.8 mg/dL (0.2-1.3); Total Protein 6.9 g/dL (6.3-8.2)
--- NOTE | 2018-09-30 08:34 | CT ---
EXAMINATION TYPE: CT brain wo con DATE OF EXAM: 09/30/2018 COMPARISON: 06/10/2017 HISTORY: 68-year-old female with confusion, altered mental status TECHNIQUE: Examination was done in axial plane without intravenous contrast. Coronal and sagittal r econstructions performed. CT DLP: 1201.4 mGycm Automated exposure control for dose reduction was used. FINDINGS: There is no evidence of acute intracranial hemorrhage, acute ischemic changes, mass, mass-effect, or extra-axial fluid collection. There is no effacement of cerebral sulci or basal subarachnoid cister ns. There is no hydrocephalus. There is no midline shift. [place]-white matter distinction is preserv ed. Atherosclerotic calcifications within the carotid siphons. Moderate confluent white matter hypodensit ies stable to slightly increased from 06/10/2017. Mild cerebral cortical volume loss is similar. Rightward nasal septal deviation. Paranasal sinuses show mild mucosal thickening in the ethmoid air c ells. Mastoid air cells are well pneumatized. Orbits and globes are intact. IMPRESSION: Similar mild atrophy. Moderate confluent changes of chronic small vessel ischemic disease show slight progression from 06/10/2017. No acute intracranial abnormality seen.
[2018-09-30 08:47] LABS: Amphetamine Screen,Urine Not Detected (NotDetected); Barbiturate Screen,Urine Not Detected (NotDetected); Benzodiazepines Screen,Urine Not Detected (NotDetected); Cocaine Screen,Urine Not Detected (NotDetected); Methadone Screen, Urine Not Detected (NotDetected); Opiate Screen,Urine Detected (NotDetected); Oxycodone Screen, Urine Not Detected (NotDetected); Phencyclidine Screen,Urine Not Detected (NotDetected); Tricyclic Antidepressant,Urine Not Detected (NotDetected); Urn Cannabinoid Scrn Not Detected (NotDetected)
--- NOTE | 2018-09-30 08:50 | XR ---
EXAMINATION TYPE: XR chest 2V DATE OF EXAM: 09/30/2018 COMPARISON: 06/18/2017 INDICATION: Altered mental status, falling, history of heart attacks, COPD TECHNIQUE: Frontal and lateral views of the chest are obtained. FINDINGS: The heart size is mildly prominent. The pulmonary vasculature is normal. The lungs are clear. Previous left pleural effusion is resolved. Tracheostomy tube is not present at this time. IMPRESSION: 1. No acute pulmonary process.
[2018-09-30] MEDS ORDERED: NALOXONE 0.4 MG/ML 1 ML VIAL IV PRN (10:16)
[2018-09-30] MEDS ORDERED: HYDROcodone/APAP 5-325MG 1 EACH TAB PO PRN (10:21)
[2018-09-30 11:48] LABS: Glucose,Whole Blood 153 mg/dL (75-99)
[2018-09-30] MEDS: SODIUM CHLORIDE 0.9% 1,000 ML IV SCH (13:00)
[2018-09-30] MEDS: INSULIN ASPART (NovoLOG) 100 UNIT/ML VIAL SQ SCH ×3 (13:15→21:54)
[2018-09-30] MEDS: IPRATROPIUM-ALBUTEROL 3 ML NEB INHALATION SCH ×4 (13:35→23:04)
[2018-09-30] MEDS: amLODIPine 10 MG TAB PO SCH (16:31)
[2018-09-30 17:07] LABS: Glucose,Whole Blood 171 mg/dL (75-99)
[2018-09-30 18:01] LABS: Glucose,Whole Blood 154 mg/dL (75-99)
[2018-09-30] MEDS: BUDESONIDE 1 MG/2 ML NEBU INHALATION SCH (19:50)
[2018-09-30 20:00] LABS: Glucose,Whole Blood 211 mg/dL (75-99)
[2018-09-30] MEDS ORDERED: INSULIN DETEMIR (LEVEMIR) 100 UNIT/ML SYR SQ SCH (21:00)
[2018-09-30] MEDS: FAMOTIDINE 20 MG TAB PO SCH (22:00)
[2018-09-30] MEDS: INSULIN DETEMIR (LEVEMIR) 100 UNIT/ML SYR SQ SCH (22:00)
[2018-09-30] MEDS: MONTELUKAST 10 MG TAB PO SCH (22:01)
[2018-09-30] MEDS: METOPROLOL TARTRATE 25 MG TAB PO SCH (22:01)
[2018-09-30] MEDS: metFORMIN 500 MG TAB PO SCH (22:01)
[2018-09-30] MEDS: SENNOSIDES-DOCUSATE SODIUM 1 EACH TAB PO SCH (22:01)
[2018-10-01] MEDS: IPRATROPIUM-ALBUTEROL 3 ML NEB INHALATION SCH ×6 (02:44→22:09)
[2018-10-01] MEDS: SODIUM CHLORIDE 0.9% 1,000 ML IV SCH ×3 (04:53→23:17)
[2018-10-01 07:03] LABS: Glucose,Whole Blood 171 mg/dL (75-99)
[2018-10-01] MEDS: BUDESONIDE 1 MG/2 ML NEBU INHALATION SCH ×2 (08:09→19:15)
[2018-10-01] MEDS: amLODIPine 10 MG TAB PO SCH (08:47)
[2018-10-01] MEDS: FLUoxetine HCL 20 MG CAP PO SCH (08:47)
[2018-10-01] MEDS: FAMOTIDINE 20 MG TAB PO SCH ×2 (08:47→20:58)
[2018-10-01] MEDS: ATORVASTATIN 40 MG TAB PO SCH (08:47)
[2018-10-01] MEDS: APIXABAN 5 MG TAB PO SCH (08:47)
[2018-10-01] MEDS: FUROSEMIDE 40 MG TAB PO SCH (08:47)
[2018-10-01] MEDS: POTASSIUM CHLORIDE ER 20 MEQ TAB.ER PO SCH (08:48)
[2018-10-01] MEDS: ANASTROZOLE 1 MG TAB PO SCH (08:48)
[2018-10-01] MEDS: INSULIN ASPART (NovoLOG) 100 UNIT/ML VIAL SQ SCH ×8 (08:48→20:58)
[2018-10-01] MEDS: METOPROLOL TARTRATE 25 MG TAB PO SCH ×2 (08:48→20:58)
[2018-10-01] MEDS: LISINOPRIL 10 MG TAB PO SCH (08:48)
[2018-10-01] MEDS: metFORMIN 500 MG TAB PO SCH ×2 (08:48→20:58)
[2018-10-01] MEDS ORDERED: METOPROLOL TARTRATE 50 MG TAB PO SCH (09:00)
[2018-10-01] MEDS ORDERED: amLODIPine 10 MG TAB PO SCH (09:00)
[2018-10-01 11:32] LABS: Glucose,Whole Blood 143 mg/dL (75-99)
[2018-10-01] MEDS ORDERED: LORazepam 2 MG/ML INJ IV PRN (12:46)
--- NOTE | 2018-10-01 16:30 | MR ---
EXAMINATION TYPE: MR lumbar spine wo con DATE OF EXAM: 10/01/2018 COMPARISON: NONE HISTORY: Lower extremity weakness per order. TECHNIQUE: Multiplanar, multisequence imaging of the lumbar spine is performed without IV contrast. FINDINGS: Exam noted suboptimal as patient became agitated and combative prior to completing all axia l images. Sagittal images of the lumbar spine show mild height loss involving the posterior L5 verteb ra. There is grade 2 anterolisthesis of L5 on S1. Bilateral pars defect are present at L5 level. Mult ilevel disc desiccation is seen. There is moderately advanced disc space narrowing at L5-S1 level. T here is mild disc space narrowing L1-L2 level. The conus medullaris is normal in position and signal ending at inferior T12 level. Hemangioma is present involving the T11 vertebra diffusely which has mi ld height loss.. Moderate multilevel anterior spurring. Sagittal images show multilevel disc herniati ons at L1-L2, L2-L3, and L4-L5 levels. Most prominent disc herniations at T12-L1 level sagittal image 6 effacing anterior thecal sac. Axial images obtained are nondiagnostic due to significant patient motion. There is suggestion of 2.5 x 1.6 cm left adrenal mass axial image 33. IMPRESSION: Suboptimal study, spondylolisthesis L5-S1 level. Other findings as noted above.
[2018-10-01 17:10] LABS: Glucose,Whole Blood 165 mg/dL (75-99)
--- NOTE | 2018-10-01 18:29 | CONS ---
CONSULTATION DATE OF SERVICE: 10/01/2018 HISTORY OF PRESENT ILLNESS: Thank you for allowing me to evaluate Mercedez Kaufman, who is a 68-year-old right-handed white female who presented to [facility] on 09/30/2018 following a fall. The patient states that she was walking with her alongside her, tripped over his foot, fell forward and struck her head on the door frame. The patient states that her felt she struck her head "really hard." She states this was over the left side of the forehead, but did not have any ecchymosis or laceration in this area. She did not lose consciousness but did drop to the ground. Her helped her up into her wheelchair and contacted EMS. Following this incident, the patient was reportedly mildly confused and slow to respond. The patient states she did have a headache over the area where she struck her head but currently states she feels "great." She states the headache is gone and feels that she is back to baseline. The patient reports a history of frequently falling at least over the past 3 months and attributes her balance issues to a prolonged hospitalization in May of 2017, when she reportedly sustained a myocardial infarction, had a ventricular fibrillation arrest, underwent coronary artery bypass surgery with prolonged respiratory failure and underwent tracheostomy and PEG tube placement. The patient states she has had poor balance since that time. She states that she was at a rehab facility for 10 months following that hospitalization before returning home. According to the emergency room notes, medics are familiar with the patient due to her having frequent falls when attempting to transition from her wheelchair to her recliner. The patient states that prior to the May 2017 hospitalization, she was not using any assistive devices, but has required a walker or wheelchair since that time. Even when she gets up to walk, she only does this for short distances and admits that she is quite sedentary and becomes easily winded with exertion. She denies neck pain and reports occasional back pain, which is not present at this time. She denies upper/lower extremity numbness but feels the strength in the extremities is reduced. She denies previous history of stroke or seizure. ALLERGIES: PENICILLIN. HOME MEDICATIONS: 1. Metformin. 2. Norvasc. 3. Senokot S. 4. Potassium. 5. Singulair. 6. Lopressor. 7. Zestril. 8. DuoNeb. 9. Lantus. 10.NovoLog. 11.[place]. 12.Lasix. 13.Pepcid. 14.Prozac. 15.Pulmicort. 16.Lipitor. 17.Eliquis. 18.Arimidex. 19.Alendronate. 20.ProAir. PAST MEDICAL HISTORY: 1. Coronary artery disease. 2. Asthma. 3. COPD. 4. Diabetes mellitus x5-6 years. 5. GERD. 6. Hyperlipidemia. 7. Hypertension. 8. Myocardial infarction x3. 9. Obstructive sleep apnea. 10.Right breast carcinoma diagnosed approximately 5 years ago, per patient, status post lumpectomy/radiation. 11.Ventricular fibrillation cardiac arrest during the hospitalization May of 2017. PAST SURGICAL HISTORY: 1. Right lumpectomy. 2. Hysterectomy. 3. Tonsillectomy. 4. Coronary stent placement x1. 5. Coronary artery bypass surgery in May 2017. 6. Tracheostomy/PEG tube placement with subsequent removal. 7. Bilateral cataract extraction. SOCIAL HISTORY: Patient quit smoking 5 years ago. She previously smoked up to 2 packs per day for 30 to 40 years. She denied alcohol consumption. She is without children. She lives in a house with her . She states she has multiple assistive devices at home, including 2/4 wheel walkers as well as wheelchair, but states she spends most of her time in a wheelchair. She does have home health care coming in on a daily basis to help bathe her, do laundry and other process safety engineer. FAMILY HISTORY: Patient's father is . She does not know the cause. Mother is alive. There is no family history of seizures, Parkinson's, Alzheimer's or other neurologic disease. REVIEW OF SYSTEMS: Fourteen systems are reviewed, and no additional complaints are identified compared to the review of systems documented in the history and physical. PHYSICAL EXAMINATION: Upon my arrival in the patient's room, she was lying in bed, receptive to the examiner. Affect is mildly flat. She is obese, deconditioned. There are no family members at the bedside. The patient appears her stated age. VITAL SIGNS: Blood pressure is 166/86 with a pulse of 92, respiratory rate 20, temperature 98.6. The patient has been afebrile through the course of this hospitalization. Weight is 90.7 kg on a 5-foot 4-inch frame. SKIN/EXTREMITIES: Arthritic changes are noted in the hands. The patient complains of bilateral knee pain. HEAD AND NECK: No signs of trauma. Neck is supple without meningeal signs. Arteries are nontender and without bruits. There is no CSF otorrhea or rhinorrhea. Schmidt sign is negative. HEART: Regular rate and rhythm. HIGHER CORTICAL FUNCTION: MENTAL STATUS: Patient was alert, oriented to self. She knew she was in "[facility]." She knew the floor, city, month, day of the week, and could name the current president. She was able to name, repeat and read. There was no evidence right/left disorientation, finger agnosia, extinction to double simultaneous stimulation or dysarthria. CRANIAL NERVES II THROUGH XII: Pupils are post-surgical and reactive to light symmetrically. No afferent pupillary defect. Visual parham are intact to confrontation. III, IV, : No ptosis. Extraocular movements are full. No nystagmus. V: Pinprick and light touch intact in all 3 divisions. Motor V intact. VII: No facial asymmetry or weakness. Acuity intact to finger rub. IX and X: Palate nicola in midline. XI: Trapezius strength intact. XII: Tongue protruded midline without fasciculation or atrophy. MOTOR EXAMINATION: There is no pronator drift. Normal bulk and tone is noted in all major muscle groups with no involuntary movements noted. Strength is 5/5 in the upper extremities. In the lower extremities, strength is listed on a 0 to 5 MRC scale, right side listed first: iliopsoas 4+,4+ (limited by pain); quadriceps 5, 5; hamstrings 5, 5; ankle dorsiflexors 0, 3; ankle plantar flexors 0, 4+. SENSORY: Patient reports gradient to pinprick and light touch at the level of the knees in the bilateral lower extremities. Upper extremities were symmetric. REFLEXES: Right side listed first: biceps 2, 2; brachioradialis 1,1; triceps 1,1; patellae 0, 0; ankle 0, 0; plantar responses mute bilaterally. Caruso's is absent. COORDINATION: [id number], pgjn-ll-[id number] movements are intact. Rapid alternating movements are symmetric with finger tapping. DIAGNOSTIC TESTING: Patient had a CT scan of the brain completed without contrast in the emergency room which demonstrated atrophy, extensive white matter ischemic change, but no acute pathology was identified. In particular, no intracranial hemorrhage was present. Chest x-ray revealed no acute pathology. Urinalysis revealed 2 WBCs, negative nitrate and leukocyte esterase. Urine tox screen was positive for opiates. White blood count 7.9 with hemoglobin of 13.5, platelet count 208. Sodium 139, potassium 4.3, BUN 22 with a creatinine of 0.8. INR 0.9. Calcium 10.6, ALT 30, AST 27, ammonia less than 9. CPK 73. Troponin 0.023. IMPRESSION: 1. Encephalopathy, likely secondary to prerenal azotemia/possible mild concussion (as the patient fell forward, striking her head "really hard" on a door frame without loss of consciousness). 2. Multifactorial gait disturbance with frequent falls secondary to age, obesity with deconditioning, degenerative joint disease with bilateral knee pain, probable diabetic peripheral neuropathy with distal lower extremity weakness and extensive white matter ischemic changes on CT of the brain. The patient states that her balance worsened following a prolonged hospitalization in May of 2017, when the patient sustained a myocardial infarction, ventricular fibrillation cardiac arrest, underwent coronary artery bypass surgery with subsequent tracheostomy/PEG tube placements. 3. Distal lower extremity weakness (right greater than left), likely secondary to diabetic peripheral neuropathy, although with the asymmetry it is difficult to exclude superimposed radiculopathy. 4. Obstructive sleep apnea. 5. Prerenal azotemia, which may increase the patient's fall risk. 6. Hypercalcemia, deferred. 7. Multiple medical problems, including coronary artery disease, asthma, chronic obstructive pulmonary disease, gastroesophageal reflux disease, hyperlipidemia, hypertension, and right breast carcinoma, status post lumpectomy/radiation without history of recurrence/metastasis, per patient. RECOMMENDATIONS: 1. The patient's initial CT scan of the brain demonstrated no acute pathology, we will obtain a follow-up CT of the brain and MRI of the lumbar spine for further evaluation. 2. Physical therapy evaluation and treatment. 3. Tight control of blood sugars and good foot care to minimize progression of neuropathy. 4. Will follow with you. Thank you very much for allowing me to participate in the care of your patient. MMODL / IJN: [id number] / JESSICA
[2018-10-01 20:29] LABS: Glucose,Whole Blood 205 mg/dL (75-99)
[2018-10-01] MEDS: SENNOSIDES-DOCUSATE SODIUM 1 EACH TAB PO SCH (20:58)
[2018-10-01] MEDS: MONTELUKAST 10 MG TAB PO SCH (20:58)
[2018-10-01] MEDS: INSULIN DETEMIR (LEVEMIR) 100 UNIT/ML SYR SQ SCH (21:02)
[2018-10-01 23:15] LABS: Glucose,Whole Blood 183 mg/dL (75-99)
--- NOTE | 2018-10-02 00:20 | P.HPIM ---
History of Present Illness H&P Date: 09/30/18 Chief Complaint: Fall History of presenting complaint: This is a 68-year-old patient who follows with Dr. Екатерина soni. Rather extensive medical history. Chronic stable medical conditions include coronary artery disease, asthma, diabetes, GERD, hyperlipidemia, obstructive sleep apnea, bilateral kidney stones, left adrenal nodule 2.4 cm, right axillary lesion. Patient normally uses a wheelchair to get about. Patient had a couple of falls at home. Yet again fell and presented to ER. Patient thinks she lost her balance. No focal weakness. No chest pain. No fever no chills. Rather sleepy when I was taking history. Then she will doze off. Denied cheese and a habit. Denies any pain. Admitted from the ER. Review of systems: GEN.: Tired and sleepy EYES: None HEENT: None NECK: None RESPIRATORY: Whenever short of breath CARDIOVASCULAR: None GASTROINTESTINAL: None GENITOURINARY: None MUSCULOSKELETAL: Some chronic pain in the joints LYMPHATICS: None HEMATOLOGICAL: None PSYCHIATRY: None NEUROLOGICAL: No focal symptoms, chronically uses a wheelchair Past medical history: To include: COPD, coronary artery disease, diabetes, GERD, hyperlipidemia, hypertension, obstructive sleep apnea, Jad bypass, does use a CPAP, sleeps in a recliner, right breast cancer with lumpectomy, Social history: This is a , frequent falls, does use a walker to transfer into a wheelchair, did smoke for 29 years stopped and 98. No alcohol. Physical examination: VITAL SIGNS: 98.6, 83, 16, 141/95, 95% room air GENERAL: BMI 34.3, laying in bed lethargic but arousable the doses of. EYES: Pupils equal. Conjunctiva normal. HEENT: External appearance of nose and ears normal, oral cavity grossly normal. NECK: JVD not raised; masses not palpable. HEART: First and second heart sounds are normal; edema present LUNGS: Respiratory rate increased, decreased breath sounds. ABDOMEN: Soft, nontender, liver spleen not palpable, no masses palpable. PSYCH: Lethargic but arousable and answers simple questionsl. NEUROLOGICAL: Cranial nerves grossly intact; no facial asymmetry, power and sensation grossly intact. LYMPHATICS: No lymph nodes palpable in the axilla and neck Investigations: Reviewed in the clinical context: White count 7.9, hemoglobin 13.5, weight is 208, potassium 4.3, BUN 22, potassium 0.8, Glucose 209 EKG tracing personally reviewed by me shows flipped T waves Chest x-ray film personally reviewed by me shows some cardiomegaly, no evidence of fluid overload Computed tomography scan of the brain, no acute Urine drug screen positive for opiates Assessment: -This is a patient's at couple of falls at home. Rather lethargic. This could be acute metabolic encephalopathy could be from a pain medication she takes [place]. No other obvious cause the present time. This could also be from CO2 retention. -Chronic medical debility does use a wheelchair and a walker for transfer -Obesity BMI 34.3 -COPD in an ex-smoker -Coronary artery disease with prior history of Jad bypass -GERD -Hyperlipidemia -Essential hypertension -Obstructive sleep apnea uses CPAP machine in the past -Chronic bilateral lower extremity venous insufficiency -Chronic medical debility uses a wheelchair and a walker for transfer -Chronic left adrenal mass 2.5 cm Plan: Continue current medication treatment plan. Hold off any sedatives. Use of BiPAP. If no response we'll review to get a pulmonary opinion. Other home medications to be resumed. Neurology was consulted. Carryout neurochecks Past Medical History Past Medical History: Asthma, Coronary Artery Disease (CAD), Cancer, Chest Pain / Angina, COPD, Diabetes Mellitus, GERD/Reflux, Hyperlipidemia, Hypertension, Myocardial Infarction ([place]), Pneumonia, Sleep Apnea/CPAP/BIPAP Additional Past Medical History / Comment(s): 05/28/17 [place] with cardiac arrest/successful resuscitation and had CABG with post op Afib/anemia, previous MIs in 1998 and 2010, IDDM type II, MADELEINE with past CPAP use, sleeps in a recliner d/t coughs when flat, R breast cancer with lumpectomy/lymph node removals and had radiation, anemia, bilateral lower leg edema, unsteady gait with frequent falls. Last Myocardial Infarction Date:: 2017 History of Any Multi-Drug Resistant Organisms: None Reported Past Surgical History: Breast Surgery, Heart Catheterization, Heart Catheterization With Stent, Hysterectomy, Tonsillectomy Additional Past Surgical History / Comment(s): 05/2017 CABG 4 vessel, bronchoscopy with lavage, EGD with peg, tracheostomy, PICC line, 07/2010 PCI with stent to RCA, R breast lumpectomy/lymph node removals, colonoscopy with benign polypectomies. Past Anesthesia/Blood Transfusion Reactions: No Reported Reaction Additional Past Anesthesia/Blood Transfusion Reaction / Comment(s): Pt states she received blood in past without reaction. Date of Last Stent Placement:: 2010 Smoking Status: Former smoker - Past Family History Mother Family Medical History: Cancer, Hyperlipidemia, Hypertension Additional Family Medical History / Comment(s): Mother had breast cancer 50 yrs ago. She is living. Father Family Medical History: Diabetes Mellitus Additional Family Medical History / Comment(s): Father is . Medications and Allergies Home Medications Medication Instructions Recorded Confirmed Type Budesonide [Pulmicort] 1 mg INHALATION RT-BID nebu 06/18/17 09/30/18 Rx Ipratropium-Albuterol Nebulize 3 ml INHALATION RT-Q4H ampul.neb 06/18/17 09/30/18 Rx [Duoneb 0.5 mg-3 mg/3 ml Soln] Albuterol Sulfate [Proair Hfa] 1 - 2 puff INHALATION RT-Q6H PRN 09/30/18 09/30/18 History Alendronate Sodium 70 mg PO Q7D 09/30/18 09/30/18 History Anastrozole [Arimidex] 1 mg PO DAILY 09/30/18 09/30/18 History Apixaban [Eliquis] 5 mg PO DAILY 09/30/18 09/30/18 History Atorvastatin [Lipitor] 40 mg PO DAILY 09/30/18 09/30/18 History FLUoxetine HCL [PROzac] 20 mg PO DAILY 09/30/18 09/30/18 History Famotidine [Pepcid] 20 mg PO BID 09/30/18 09/30/18 History Furosemide [Lasix] 40 mg PO DAILY 09/30/18 09/30/18 History HYDROcodone/APAP 5-325MG [[place] 1 tab PO BID PRN 09/30/18 09/30/18 History 5-325] Insulin Aspart [NovoLOG Flexpen] 28 units SQ AC-TID 09/30/18 09/30/18 History Insulin Glargine [Lantus] 25 unit SQ HS 09/30/18 09/30/18 History Lisinopril [Zestril] 10 mg PO DAILY 09/30/18 09/30/18 History Metoprolol Tartrate [Lopressor] 50 mg PO DAILY 09/30/18 09/30/18 History Montelukast [Singulair] 10 mg PO HS 09/30/18 09/30/18 History Potassium Chloride ER [K-Dur 20] 20 meq PO DAILY 09/30/18 09/30/18 History Sennosides-Docusate Sodium 1 tab PO HS 09/30/18 09/30/18 History [Senokot-S] amLODIPine [Norvasc] 10 mg PO DAILY 09/30/18 09/30/18 History metFORMIN HCL 1,000 mg PO BID 09/30/18 09/30/18 History Allergies Allergy/AdvReac Type Severity Reaction Status Date / Time Penicillins Allergy Severe Rash/Hives Verified 09/30/18 08:54 Physical Exam Vitals: Vital Signs Temp Pulse Pulse Pulse Pulse Resp BP 09/30/18 23:14 94 09/30/18 23:06 94 09/30/18 22:47 98.2 F 103 H 103 H 20 09/30/18 20:03 90 09/30/18 19:51 90 09/30/18 17:45 89 16 09/30/18 17:16 09/30/18 16:11 98.7 F 93 17 09/30/18 15:50 92 09/30/18 15:43 91 20 09/30/18 15:00 98.6 F 71 20 156/86 09/30/18 13:44 92 09/30/18 13:37 90 09/30/18 13:00 71 22 148/91 09/30/18 11:45 86 22 165/86 09/30/18 09:46 96 20 127/78 09/30/18 07:38 98.6 F 83 16 141/95 BP BP Pulse Ox 09/30/18 23:14 09/30/18 23:06 09/30/18 22:47 184/82 172/81 09/30/18 20:03 09/30/18 19:51 09/30/18 17:45 190/78 97 09/30/18 17:16 175/84 09/30/18 16:11 177/88 94 L 09/30/18 15:50 09/30/18 15:43 96 09/30/18 15:00 97 09/30/18 13:44 09/30/18 13:37 09/30/18 13:00 99 09/30/18 11:45 96 09/30/18 09:46 96 09/30/18 07:38 95 Intake and Output 09/30/18 09/30/18 10/01/18 14:59 22:59 06:59 Other: Voiding Method Incontinent # Voids 1 Weight 90.718 kg Results CBC & Chem 7: 09/30/18 07:55 09/30/18 07:55 Labs: Abnormal Lab Results - Last 24 Hours (Table) 09/30/18 09/30/18 09/30/18 Range/Units 07:55 07:55 11:44 BUN 22 H (7-17) mg/dL Glucose 209 H (74-99) mg/dL POC Glucose (mg/dL) 153 H (75-99) mg/dL Calcium 10.6 H (8.4-10.2) mg/dL Urine Protein 1+ H (Negative) Urine Glucose (UA) 2+ H (Negative) Amorphous Sediment Occasional H (None) /hpf Urine Mucus Rare H (None) /hpf Urine Opiates Screen Detected H (NotDetected) 09/30/18 09/30/18 09/30/18 Range/Units 17:06 17:58 19:59 BUN (7-17) mg/dL Glucose (74-99) mg/dL POC Glucose (mg/dL) 171 H 154 H 211 H (75-99) mg/dL Calcium (8.4-10.2) mg/dL Urine Protein (Negative) Urine Glucose (UA) (Negative) Amorphous Sediment (None) /hpf Urine Mucus (None) /hpf Urine Opiates Screen (NotDetected) Thrombosis Risk Factor Assmnt - Choose All That Apply Any of the Below Risk Factors Present?: Yes Each Factor Represents 1 point: Obesity (BMI >25) Other Risk Factors: Yes Each Risk Factor Represents 2 Points: Age 61-74 years Other congenital or acquired thrombophilia - If yes, enter type in comment: No Thrombosis Risk Factor Assessment Total Risk Factor Score: 3 Thrombosis Risk Factor Assessment Level: Moderate Risk
--- NOTE | 2018-10-02 00:26 | P.PN ---
Progress Note - Text Progress Note Date: 10/01/18 History of presenting complaint: This is a 68-year-old patient who follows with Dr. Екатерина soni. Rather extensive medical history. Chronic stable medical conditions include coronary artery disease, asthma, diabetes, GERD, hyperlipidemia, obstructive sleep apnea, bilateral kidney stones, left adrenal nodule 2.4 cm, right axillary lesion. Patient normally uses a wheelchair to get about. Patient had a couple of falls at home. Yet again fell and presented to ER. Patient thinks she lost her balance. No focal weakness. No chest pain. No fever no chills. Rather sleepy when I was taking history. Then she will doze off. Denied cheese and a habit. Denies any pain. Admitted from the ER. Today-more awake this morning. Did state that she's been falling off a chair. Breathing a bit better. Review of systems: Was done for constitutional, cardiovascular, GI, pulmonary. relevant finding as above Current medications are reviewed that include: [place], insulin Physical examination: VITAL SIGNS: 98.6, 78, 19, 159/84, 98% on 2 L GENERAL: Laying in bed, more awake this morning EYES: Pupils equal. Conjunctiva normal. HEENT: External appearance of nose and ears normal, oral cavity grossly normal. NECK: JVD not raised; masses not palpable. HEART: First and second heart sounds are normal; edema present LUNGS: Respiratory rate increased, decreased breath sounds. ABDOMEN: Soft, nontender, liver spleen not palpable, no masses palpable. PSYCH: Answering questions appropriately NEUROLOGICAL: Cranial nerves grossly intact; no facial asymmetry, power and sensation grossly intact. Investigations: Reviewed in the clinical context: Accu-Cheks 171 EKG tracing personally reviewed by me shows flipped T waves Chest x-ray film personally reviewed by me shows some cardiomegaly, no evidence of fluid overload Computed tomography scan of the brain, no acute Urine drug screen positive for opiates Assessment: -This is a patient's at couple of falls at home. Rather lethargic. This could be acute metabolic encephalopathy could be from a pain medication she takes [place]. No other obvious cause the present time. This could also be from CO2 retention. -Chronic medical debility does use a wheelchair and a walker for transfer -Obesity BMI 34.3 -COPD in an ex-smoker -Coronary artery disease with prior history of Jad bypass -GERD -Hyperlipidemia -Essential hypertension -Obstructive sleep apnea uses CPAP machine in the past -Chronic bilateral lower extremity venous insufficiency -Chronic medical debility uses a wheelchair and a walker for transfer -Chronic left adrenal mass 2.5 cm Plan: 2 2-D echocardiogram. Might get a cardiology consultation. We'll follow the patient clinically. Repeat labs. Stopped [place]. Patient did get a [place] in the early hours of this morning. Neurology was consulted.
[2018-10-02 07:08] LABS: Glucose,Whole Blood 160 mg/dL (75-99)
[2018-10-02] MEDS: INSULIN ASPART (NovoLOG) 100 UNIT/ML VIAL SQ SCH ×7 (08:17→20:33)
[2018-10-02] MEDS: FLUoxetine HCL 20 MG CAP PO SCH (08:18)
[2018-10-02] MEDS: FUROSEMIDE 40 MG TAB PO SCH (08:18)
[2018-10-02] MEDS: APIXABAN 5 MG TAB PO SCH (08:18)
[2018-10-02] MEDS: METOPROLOL TARTRATE 25 MG TAB PO SCH ×2 (08:18→20:34)
[2018-10-02] MEDS: POTASSIUM CHLORIDE ER 20 MEQ TAB.ER PO SCH (08:18)
[2018-10-02] MEDS: ATORVASTATIN 40 MG TAB PO SCH (08:18)
[2018-10-02] MEDS: FAMOTIDINE 20 MG TAB PO SCH ×2 (08:18→20:33)
[2018-10-02] MEDS: metFORMIN 500 MG TAB PO SCH ×2 (08:18→20:34)
[2018-10-02] MEDS: LISINOPRIL 10 MG TAB PO SCH (08:19)
[2018-10-02] MEDS: amLODIPine 10 MG TAB PO SCH (08:19)
[2018-10-02] MEDS: ANASTROZOLE 1 MG TAB PO SCH (08:19)
[2018-10-02] MEDS: IPRATROPIUM-ALBUTEROL 3 ML NEB INHALATION SCH ×8 (08:25→23:40)
[2018-10-02] MEDS: BUDESONIDE 1 MG/2 ML NEBU INHALATION SCH ×3 (08:36→19:46)
[2018-10-02 08:49] LABS: Basophils # (A) 0.1 k/uL (0-0.2); Basophils % (A) 1 %; Eosinophils # (A) 0.2 k/uL (0-0.7); Eosinophils % (A) 4 %; HCT 40.2 % (34.0-46.0); HGB 12.7 gm/dL (11.4-16.0); Lymphocytes % (A) 16 %; MCH 29.4 pg (25.0-35.0); MCHC 31.7 g/dL (31.0-37.0); MCV 92.8 fL (80.0-100.0); Mean Platelet Volume 7.4; Monocytes # (A) 0.3 k/uL (0-1.0); Monocytes % (A) 4 %; Neutrophils # (A) 4.3 k/uL (1.3-7.7); Neutrophils % (A) 72 %; Platelet Count 170 k/uL (150-450); RBC 4.34 m/uL (3.80-5.40); RDW 13.7 % (11.5-15.5); WBC 5.9 k/uL (3.8-10.6)
--- NOTE | 2018-10-02 09:05 | CT ---
EXAMINATION TYPE: CT brain wo con DATE OF EXAM: 10/02/2018 HISTORY: Fall on Eliquis with confusion. Rule out ICH CT DLP: 1047.10 mGycm. Automated Exposure Control for Dose Reduction was Utilized. TECHNIQUE: CT scan of the head is performed without contrast. COMPARISON: CT brain from 2 days ago. FINDINGS: There is no acute intracranial hemorrhage or midline shift identified. There is diffuse v entricular and sulcal prominence consistent with diffuse age-related cerebral atrophy. There is sathish ed low-attenuation in the deep and periventricular white matter presumed on the basis of product of c hronic small vessel ischemic change in patient of this age. The calvarium is intact. Persists in ant erior metopic suture incidentally noted. The globes are intact and the visualized sinuses are clear. IMPRESSION: No acute intracranial hemorrhage or midline shift. There is mild diffuse age-related ce rebral atrophy and advanced chronic small vessel ischemic change redemonstrated. No significant lopes ge from most recent prior CT.
[2018-10-02 09:07] LABS: African American GFR (CKD) >90 (>60 ml/min/1.73 sqM); Anion Gap 8 mmol/L; Blood Urea Nitrogen 13 mg/dL (7-17); Calcium 9.7 mg/dL (8.4-10.2); Carbon Dioxide 29 mmol/L (22-30); Chloride 103 mmol/L (98-107); Glucose 156 mg/dL (74-99); Potassium 4.2 mmol/L (3.5-5.1); Sodium 140 mmol/L (137-145)
--- NOTE | 2018-10-02 09:08 | ECHOF ---
Referral Reason:Abnormal EKG MEASUREMENTS -------- HEIGHT: 162.6 cm WEIGHT: 90.7 kg BP: 165/92 RVIDd: 3.2 cm (< 3.3) IVSd: 1.6 cm (0.6 - 1.1) LVIDd: 5.3 cm (3.9 - 5.3) LVPWd: 1.5 cm (0.6 - 1.1) IVSs: 2.0 cm LVIDs: 3.4 cm LVPWs: 2.2 cm LA Diam: 3.6 cm (2.7 - 3.8) Ao Diam: 3.9 cm (2.0 - 3.7) AV Cusp: 1.8 cm (1.5 - 2.6) MV EXCURSION: 13.189 mm (> 18.000) MV EF SLOPE: 56 mm/s (70 - 150) EPSS: 0.6 cm MV E Basil: 0.93 m/s MV DecT: 184 ms MV A Basil: 0.91 m/s MV E/A Ratio: 1.02 RAP: 5.00 mmHg RVSP: 27.81 mmHg FINDINGS -------- Sinus rhythm. This was a technically difficult study with suboptimal views. The left ventricular size is normal. There is moderate concentric left ventricular hypertrophy. O verall left ventricular systolic function is normal with, an EF between 60 - 65 %. The right ventricle is normal in size. The left atrial size is normal. The right atrium was not well visualized. 5.0mg of Lumason was utilized for enhancement of images Interatrial and interventricular septum intact. The aortic valve was not well visualized. There is trace mitral regurgitation. Mild tricuspid regurgitation present. Right ventricular systolic pressure is normal at < 35 mmHg. The pulmonic valve was not well visualized. The aortic root is dilated measuring 3.9cm. IVC Not well visulized. There is no pericardial effusion. CONCLUSIONS -------- 1. Sinus rhythm. 2. This was a technically difficult study with suboptimal views. 3. The left ventricular size is normal. 4. There is moderate concentric left ventricular hypertrophy. 5. Overall left ventricular systolic function is normal with, an EF between 60 - 65 %. 6. The right ventricle is normal in size. 7. The left atrial size is normal. 8. The right atrium was not well visualized. 9. 5.0mg of Lumason was utilized for enhancement of images 10. Interatrial and interventricular septum intact. 11. The aortic valve was not well visualized. 12. There is trace mitral regurgitation. 13. Mild tricuspid regurgitation present. 14. Right ventricular systolic pressure is normal at < 35 mmHg. 15. The pulmonic valve was not well visualized. 16. The aortic root is dilated measuring 3.9cm. 17. IVC Not well visulized. 18. There is no pericardial effusion. LOTTERY CLERK: Roxana Escobar RDCS
[2018-10-02 11:06] LABS: Glucose,Whole Blood 213 mg/dL (75-99)
--- NOTE | 2018-10-02 11:34 | P.CNPUL ---
History of Present Illness Consult date: 10/02/18 Requesting physician: Neftaly Stovall Reason for consult: dyspnea Chief complaint: Fall with headache, altered mental status History of present illness: This is a very pleasant 68-year-old female patient who follows with Dr. Howell as her primary care physician. She has multiple medical problems including morbid obesity with obesity hypoventilation syndrome and obstructive sleep apnea not on BiPAP in the outpatient setting. She did have a unit that was taken back due to noncompliance. She was last seen in our office in January 2017. She also has history of coronary artery disease with stent placement to the RCA, diabetes mellitus, hyperlipidemia, hypertension, asthma, chronic lower extremity edema right breast cancer with lumpectomy, lymph nodes removed and radiation, on Arimidex. She presented here to the emergency room on 09/30/2018 after sustaining a fall at home. She did hit her head against the door. No loss of consciousness. CT scans of the brain showed no acute abnormality. Neurology is following. She had also been complaining of shortness of breath this admission where consulted for the same today. Chest x-ray reveals no acute pulmonary process. She is currently maintaining O2 saturations at 99% on 2 L/m per nasal cannula. She's been afebrile. White count 5.9. Hemoglobin 12.7. Creatinine 0.70. Echocardiogram revealed preserved left ventricular systolic function with ejection fraction 60-65%. No significant valvular abnormalities. No pulmonary hypertension. Review of Systems REVIEW OF SYSTEMS: CONSTITUTIONAL: Denies any recent significant weight loss or weight gain. EYES: Denies change in vision. EARS, NOSE, MOUTH, THROAT: Positive for headaches, denies sore throat. CARDIOVASCULAR: Denies chest pain, palpitations or syncopal episodes. RESPIRATORY: Positive for shortness of breath, cough, congestion no hemoptysis. GASTROINTESTINAL: Denies change in appetite, denies abdominal pain GENITOURINARY: Denies hematuria, denies infections. MUSKULOSKELETAL: Positive for pain, swelling. INTEGUMENTARY: Denies rash, denies eczema. NEUROLOGICAL: Positive for memory loss, no recent seizure activity. PSYCHIATRIC: Denies anxiety, denies depression. HEMATOLOGIC/LYMPHATIC: Denies anemia, denies enlarged lymph nodes. Past Medical History Past Medical History: Asthma, Coronary Artery Disease (CAD), Cancer, Chest Pain / Angina, COPD, Diabetes Mellitus, GERD/Reflux, Hyperlipidemia, Hypertension, Myocardial Infarction (MD), Pneumonia, Sleep Apnea/CPAP/BIPAP Additional Past Medical History / Comment(s): 05/28/17 MD with cardiac arrest/successful resuscitation and had CABG with post op Afib/anemia, previous MIs in 1998 and 2010, IDDM type II, M[place] with past CPAP use, sleeps in a recliner d/t coughs when flat, R breast cancer with lumpectomy/lymph node removals and had radiation, anemia, bilateral lower leg edema, unsteady gait with frequent falls. Last Myocardial Infarction Date:: 2017 History of Any Multi-Drug Resistant Organisms: None Reported Past Surgical History: Breast Surgery, Heart Catheterization, Heart Catheterization With Stent, Hysterectomy, Tonsillectomy Additional Past Surgical History / Comment(s): 05/2017 CABG 4 vessel, bronchoscopy with lavage, EGD with peg, tracheostomy, PICC line, 07/2010 PCI with stent to RCA, R breast lumpectomy/lymph node removals, colonoscopy with benign polypectomies. Past Anesthesia/Blood Transfusion Reactions: No Reported Reaction Additional Past Anesthesia/Blood Transfusion Reaction / Comment(s): Pt states she received blood in past without reaction. Date of Last Stent Placement:: 2010 Smoking Status: Former smoker - Past Family History Mother Family Medical History: Cancer, Hyperlipidemia, Hypertension Additional Family Medical History / Comment(s): Mother had breast cancer 50 yrs ago. She is living. Father Family Medical History: Diabetes Mellitus Additional Family Medical History / Comment(s): Father is . Medications and Allergies Home Medications Medication Instructions Recorded Confirmed Type Budesonide [Pulmicort] 1 mg INHALATION RT-BID nebu 06/18/17 09/30/18 Rx Ipratropium-Albuterol Nebulize 3 ml INHALATION RT-Q4H ampul.neb 06/18/17 09/30/18 Rx [Duoneb 0.5 mg-3 mg/3 ml Soln] Albuterol Sulfate [Proair Hfa] 1 - 2 puff INHALATION RT-Q6H PRN 09/30/18 09/30/18 History Alendronate Sodium 70 mg PO Q7D 09/30/18 09/30/18 History Anastrozole [Arimidex] 1 mg PO DAILY 09/30/18 09/30/18 History Apixaban [Eliquis] 5 mg PO DAILY 09/30/18 09/30/18 History Atorvastatin [Lipitor] 40 mg PO DAILY 09/30/18 09/30/18 History FLUoxetine HCL [PROzac] 20 mg PO DAILY 09/30/18 09/30/18 History Famotidine [Pepcid] 20 mg PO BID 09/30/18 09/30/18 History Furosemide [Lasix] 40 mg PO DAILY 09/30/18 09/30/18 History HYDROcodone/APAP 5-325MG [[place] 1 tab PO BID PRN 09/30/18 09/30/18 History 5-325] Insulin Aspart [NovoLOG Flexpen] 28 units SQ AC-TID 09/30/18 09/30/18 History Insulin Glargine [Lantus] 25 unit SQ HS 09/30/18 09/30/18 History Lisinopril [Zestril] 10 mg PO DAILY 09/30/18 09/30/18 History Metoprolol Tartrate [Lopressor] 50 mg PO DAILY 09/30/18 09/30/18 History Montelukast [Singulair] 10 mg PO HS 09/30/18 09/30/18 History Potassium Chloride ER [K-Dur 20] 20 meq PO DAILY 09/30/18 09/30/18 History Sennosides-Docusate Sodium 1 tab PO HS 09/30/18 09/30/18 History [Senokot-S] amLODIPine [Norvasc] 10 mg PO DAILY 09/30/18 09/30/18 History metFORMIN HCL 1,000 mg PO BID 09/30/18 09/30/18 History Allergies Allergy/AdvReac Type Severity Reaction Status Date / Time Penicillins Allergy Severe Rash/Hives Verified 09/30/18 08:54 Physical Exam Vitals: Vital Signs Temp Pulse Pulse Pulse Resp BP BP 10/02/18 09:09 80 10/02/18 08:56 84 10/02/18 05:00 97.5 F L 84 20 10/02/18 03:12 78 10/02/18 03:04 76 10/01/18 23:13 98.5 F 86 16 140/88 10/01/18 23:03 83 148/79 10/01/18 22:23 76 10/01/18 22:09 76 10/01/18 21:00 98.4 F 95 20 124/74 10/01/18 19:36 78 18 10/01/18 19:15 82 20 10/01/18 15:32 80 10/01/18 15:23 10/01/18 15:20 75 16 10/01/18 12:49 98.6 F 78 84 19 159/84 163/96 BP Pulse Ox 10/02/18 09:09 10/02/18 08:56 10/02/18 05:00 165/92 99 10/02/18 03:12 10/02/18 03:04 10/01/18 23:13 97 10/01/18 23:03 98 10/01/18 22:23 10/01/18 22:09 10/01/18 21:00 95 10/01/18 19:36 10/01/18 19:15 10/01/18 15:32 10/01/18 15:23 97 10/01/18 15:20 10/01/18 12:49 98 Intake and Output 10/01/18 10/02/18 10/02/18 22:59 06:59 14:59 Intake Total 800 1200 Balance 800 1200 Intake: Intake, IV Titration 800 960 Amount Sodium Chloride 0.9% 1, 800 960 000 ml @ 80 mls/hr IV . [id number] [facility] Rx#:[id number] Oral 240 Other: Voiding Method Incontinent Incontinent # Voids 2 1 # Bowel Movements 1 GENERAL EXAM: Pleasant morbidly obese 68-year-old female patient. Alert, comfortable in no apparent distress. On 2 L. HEAD: Normocephalic. EYES: Normal reaction of pupils, equal size. NOSE: Clear with pink turbinates. THROAT: Crowding the posterior pharynx No erythema or exudates. NECK: Short. No masses, no JVD. CHEST: No chest wall deformity. LUNGS: Equal air entry with faint end expiratory wheeze. CVS: S1 and S2 normal with no audible murmur, regular rhythm. ABDOMEN: No hepatosplenomegaly, normal bowel sounds, no guarding or rigidity. SPINE: No scoliosis or deformity SKIN: No rashes CENTRAL NERVOUS SYSTEM: No focal deficits, tone is normal in all 4 extremities. EXTREMITIES: There is no peripheral edema. No clubbing, no cyanosis. Peripheral pulses are intact. Results - Laboratory Findings CBC and BMP: 07/10/19 07:40 10/02/18 07:40 PT/INR, D-dimer PT 9.9 sec (9.0-12.0) 09/30/18 07:55 INR 0.9 (<1.2) 09/30/18 07:55 Abnormal lab findings: Abnormal Labs 09/30/18 09/30/18 09/30/18 07:55 07:55 07:55 BUN 22 H Glucose 209 H POC Glucose (mg/dL) Hemoglobin A1c 8.0 H Calcium 10.6 H Urine Protein 1+ H Urine Glucose (UA) 2+ H Amorphous Sediment Occasional H Urine Mucus Rare H Urine Opiates Screen Detected H 09/30/18 09/30/18 09/30/18 11:44 17:06 17:58 BUN Glucose POC Glucose (mg/dL) 153 H 171 H 154 H Hemoglobin A1c Calcium Urine Protein Urine Glucose (UA) Amorphous Sediment Urine Mucus Urine Opiates Screen 09/30/18 10/01/18 10/01/18 19:59 07:02 11:31 BUN Glucose POC Glucose (mg/dL) 211 H 171 H 143 H Hemoglobin A1c Calcium Urine Protein Urine Glucose (UA) Amorphous Sediment Urine Mucus Urine Opiates Screen 10/01/18 10/01/18 10/01/18 17:09 20:28 23:12 BUN Glucose POC Glucose (mg/dL) 165 H 205 H 183 H Hemoglobin A1c Calcium Urine Protein Urine Glucose (UA) Amorphous Sediment Urine Mucus Urine Opiates Screen 10/02/18 10/02/18 10/02/18 07:05 07:40 11:04 BUN Glucose 156 H POC Glucose (mg/dL) 160 H 213 H Hemoglobin A1c Calcium Urine Protein Urine Glucose (UA) Amorphous Sediment Urine Mucus Urine Opiates Screen - Diagnostic Findings Chest x-ray: image reviewed Assessment and Plan Assessment: Impression: #1 Fall, tripping fall without loss of consciousness, hitting her head with some altered mental status. #2 Gait disturbance with frequent falls secondary to morbid obesity, suspected diabetic neuropathy, degenerative joint disease. #3 Dyspnea, multifactorial, secondary to mild exacerbation of intermittent asthma, morbid obesity, obstructive sleep apnea with obesity hypoventilation sy ndrome, previously had BiPAP in the outpatient setting that was removed due to noncompliance. #4 History of cardiac arrest status post coronary artery bypass grafting with prolonged ventilation requiring tracheostomy and PEG tube insertion with subsequent removals. #5 History of coronary artery disease with previous stent placement to the RCA. #6 Hypertension. #7 Hyperlipidemia. #8 Diabetes mellitus. #9 Previous pneumonias. #10 Previous tobacco dependence. #11 History of right-sided breast cancer status post lumpectomy/radiation. #12 Poor overall functional performance based on the above-mentioned multiple comorbidities. Plan: The patient was seen and evaluated by Dr. Waddell. Chest x-ray and labs reviewed. We'll treat her for mild exacerbation of her intermittent asthma. Continue Singulair, DuoNeb inhalations, Pulmicort inhalations. She should be reevaluated in the outpatient setting regarding her obstructive sleep apnea which was documented as quite severe with an AHI of 80. She had previously been on BiPAP at a pressure 21/17 cm of water. We will continue to follow and make further recommendations based on her clinical status. I, the cosigning physician, performed a history & physical examination of the patient. Lungs sounds with faint end expiratory wheeze. Maintaining good O2 saturations in the 90s on 2 L/m per nasal cannula. I discussed the assessment and plan of care with my nurse practitioner, Etta Loyola. I attest to the above note as dictated by her. Time with Patient: Greater than 30
[2018-10-02] MEDS: SODIUM CHLORIDE 0.9% 1,000 ML IV SCH (12:38)
[2018-10-02 13:32] LABS: ABG Base Excess 1.4 mmol/L; ABG HCO3 26 mmol/L (21-25); ABG Oxygen Saturation 95.3 % (94-97); ABG PCO2 42 mmHg (35-45); ABG PO2 73 mmHg (83-108); ABG TCO2 27 mmol/L (19-24); Allen Test Performed? Yes
--- NOTE | 2018-10-02 13:32 | PN ---
PROGRESS NOTE DATE OF SERVICE: 10/02/2018 I had the pleasure of re-evaluating Mercedez Kaufman who is currently sitting in bed and about to have lunch. She denies headache or significant back pain at this time. She states she is doing "good". CURRENT MEDICATIONS: DuoNeb, Norvasc, Arimidex, Eliquis, Lipitor, Pulmicort, Pepcid, Prozac, Lasix, NovoLog, Levemir, Zestril, Glucophage, Lopressor, Singulair, K-Dur, Senokot S. PHYSICAL EXAM: The patient is currently lying in bed, receptive to examiner, a fair historian, obese, deconditioned. VITAL SIGNS: Blood pressure is 165/92 with pulse 84, respiratory rate 20, temperature is 97.5. HIGHER CORTICAL FUNCTION: MENTAL STATUS: Patient was alert and oriented to myself, she knew she was in [facility]. She stated the year was "2089". She did know the month but not the day of the week. She was able to name and repeat. There was no dysarthria or aphasia. CRANIAL NERVES II THROUGH XII: Demonstrate post-surgical pupils but are otherwise intact. MOTOR EXAMINATION: Was limited as the patient was anxious to sit up and eat lunch and did not wish to participate. COORDINATION: [id number], [id number] movements are intact. DIAGNOSTIC TESTING: The patient had a followup CT scan of the brain completed on 10/02/2018, which demonstrated no evidence of acute intracranial hemorrhage or significant change from prior CT of 09/30/2018. MRI of the lumbar spine demonstrated grade 2 anterior listhesis of L5 on S1, axial cuts were limited due to motion artifact. Suggestion was raised of a 2.5 x 1.6 cm left adrenal mass. Lab work Includes white blood cell count of 5.9 with a hemoglobin 12.7, platelet count 170. TSH within normal limits. Hemoglobin A1c 8.0. IMPRESSION: 1. Encephalopathy, likely secondary to prerenal azotemia/concussion, this may be superimposed on baseline cognitive impairment. 2. Multifactorial gait disturbance with frequent falls. 3. Distal lower extremity weakness (right greater than left), likely secondary to diabetic neuropathy, although this is asymmetric and there is evidence of grade 2 anterior listhesis of L5-S1 on MRI of the lumbar spine. 4. Obstructive sleep apnea. 5. Question of a left adrenal mass on MRI, deferred to your expertise. RECOMMENDATION: 1. I discussed my impression and results of diagnostic testing with the patient, in particular followup CT of the brain demonstrated no intracranial hemorrhage and MRI of lumbar spine revealed grade 2 anterior listhesis of L5-S1. 2. In the setting of bilateral footdrop and grade 2 anterior listhesis, we will obtain orthopedic consultation. 3. Lab work for reversible causes of cognitive decline has been requested, TSH was within normal limits. 4. Increase activity as tolerated, physical therapy evaluation and treatment. 5. Weight loss and regular exercise program to tolerance is recommended. 6. Tight control of blood sugars and good foot care to minimize progression of neuropathy. 7. Will follow with you. Thank you for allowing me to participate in the care of your patient. [id number] / IJN: [id number] /
[2018-10-02 17:09] LABS: Glucose,Whole Blood 137 mg/dL (75-99)
[2018-10-02 19:55] LABS: Glucose,Whole Blood 254 mg/dL (75-99)
[2018-10-02] MEDS: MONTELUKAST 10 MG TAB PO SCH (20:34)
[2018-10-02] MEDS: INSULIN DETEMIR (LEVEMIR) 100 UNIT/ML SYR SQ SCH (20:34)
[2018-10-02] MEDS: SENNOSIDES-DOCUSATE SODIUM 1 EACH TAB PO SCH (20:34)
--- NOTE | 2018-10-02 22:08 | P.PN ---
Progress Note - Text Progress Note Date: 10/02/18 Presenting complaint: Tired Interval history: This is a 68-year-old patient who follows with Dr. Екатерина soni. Rather extensive medical history. Chronic stable medical conditions include coronary artery disease, asthma, diabetes, GERD, hyperlipidemia, obstructive sleep apnea, bilateral kidney stones, left adrenal nodule 2.4 cm, right axillary lesion. Patient normally uses a wheelchair to get about. Patient had a couple of falls at home. Yet again fell and presented to ER. Patient thinks she lost her balance. No focal weakness. No chest pain. No fever no chills. Rather sleepy when I was taking history. Then she will doze off. Denied cheese and a habit. Denies any pain. Admitted from the ER. Episodes of being on and off. Patient has not been using her BiPAP at home. Did tolerate some diet.. Review of systems: Was done for constitutional, cardiovascular, GI, pulmonary. relevant finding as above Current medications are reviewed that include: Luning, insulin Physical examination: VITAL SIGNS: 98, 76, 18, 161/87, 98% on 2 L GENERAL: Laying in bed, awake but tired EYES: Pupils equal. Conjunctiva normal. HEENT: External appearance of nose and ears normal, oral cavity grossly normal. NECK: JVD not raised; masses not palpable. HEART: First and second heart sounds are normal; edema present LUNGS: Respiratory rate increased, decreased breath sounds. ABDOMEN: Soft, nontender, liver spleen not palpable, no masses palpable. PSYCH: Answering questions appropriately NEUROLOGICAL: Cranial nerves grossly intact; no facial asymmetry, power and sensation grossly intact. Investigations: Reviewed in the clinical context: White count 5.9 hemoglobin 12.7 potassium 4.2 BUN 13 creatinine 0.70 ABG-pH 7.4 pCO2 27 pO2 73 EKG tracing personally reviewed by me shows flipped T waves Chest x-ray film personally reviewed by me shows some cardiomegaly, no evidence of fluid overload Computed tomography scan of the brain, no acute Urine drug screen positive for opiates 2-D echo-shows EF of 60-65%, concentric left medical hypertrophy Assessment: -This is a patient's at couple of falls at home. Rather lethargic. This could be acute metabolic encephalopathy could be from a pain medication she takes Luning. No other obvious cause the present time. This could also be from CO2 retention. -Chronic medical debility does use a wheelchair and a walker for transfer -Obesity BMI 34.3 -COPD in an ex-smoker -Coronary artery disease with prior history of coronary bypass -GERD -Hyperlipidemia -Essential hypertension -Obstructive sleep apnea uses CPAP machine in the past -Chronic bilateral lower extremity venous insufficiency -Chronic medical debility uses a wheelchair and a walker for transfer -Chronic left adrenal mass 2.5 cm -Bilateral foot drop -Peripheral neuropathy Plan: It is felt at this point patient's symptoms could primarily be from not using a BiPAP. Hence pulmonary was consulted. We will see what can be done. This was discussed with the patient this morning. Oxygen to continue. Per neurology Dr. Santillan from orthopedic spine is being consulted. Further bilateral foot drop and findings on the MRI spine.
[2018-10-03] MEDS: IPRATROPIUM-ALBUTEROL 3 ML NEB INHALATION SCH ×6 (03:20→23:41)
[2018-10-03] MEDS: SODIUM CHLORIDE 0.9% 1,000 ML IV SCH ×2 (04:15→05:22)
[2018-10-03 07:01] LABS: Glucose,Whole Blood 180 mg/dL (75-99)
[2018-10-03] MEDS: BUDESONIDE 1 MG/2 ML NEBU INHALATION SCH ×2 (07:12→19:19)
[2018-10-03] MEDS: INSULIN ASPART (NovoLOG) 100 UNIT/ML VIAL SQ SCH ×7 (07:51→20:09)
[2018-10-03] MEDS: ANASTROZOLE 1 MG TAB PO SCH (07:52)
[2018-10-03] MEDS: amLODIPine 10 MG TAB PO SCH (07:52)
[2018-10-03] MEDS: ATORVASTATIN 40 MG TAB PO SCH (07:52)
[2018-10-03] MEDS: APIXABAN 5 MG TAB PO SCH (07:52)
[2018-10-03] MEDS: FLUoxetine HCL 20 MG CAP PO SCH (07:53)
[2018-10-03] MEDS: FUROSEMIDE 40 MG TAB PO SCH (07:53)
[2018-10-03] MEDS: FAMOTIDINE 20 MG TAB PO SCH ×2 (07:53→20:09)
[2018-10-03] MEDS: LISINOPRIL 10 MG TAB PO SCH (07:53)
[2018-10-03] MEDS: metFORMIN 500 MG TAB PO SCH ×2 (07:53→20:10)
[2018-10-03] MEDS: METOPROLOL TARTRATE 25 MG TAB PO SCH ×2 (07:53→20:10)
[2018-10-03] MEDS: POTASSIUM CHLORIDE ER 20 MEQ TAB.ER PO SCH (07:54)
[2018-10-03 09:56] LABS: African American GFR (CKD) >90 (>60 ml/min/1.73 sqM); Anion Gap 9 mmol/L; Blood Urea Nitrogen 12 mg/dL (7-17); Carbon Dioxide 28 mmol/L (22-30); Chloride 103 mmol/L (98-107); Glucose 203 mg/dL (74-99); Potassium 3.9 mmol/L (3.5-5.1); Sodium 140 mmol/L (137-145)
--- NOTE | 2018-10-03 09:56 | P.CNOR ---
History of Present Illness - [facility] Consult date: 10/03/18 Consult reason: other (Spondylolisthesis bilateral lower extremity foot drop) History of present illness: Patient is seen and examined at bedside she is a pleasant 68-year-old female with multiple medical issues. Back in October of last year she had a stroke and apparently says that she had a heart attack as well. Since that time she has had weakness in her bilateral lower extremity is worse on the right than the left. She endplates of the walker but has limited ambulation. She says she has occasional back pain and occasional leg pain but overall her back pain and leg pain is not too bad. She lives at home with her and says that she is able get around the house with a walker. His somewhat difficult to ascertain her full activity to mobilize as she is quite deconditioned and has difficulty getting out of bed here in Hospital. She says she has been working with physical therapy here in Hospital. She does not take any regular medications for her back. She has not had specific treatment for her back or any procedures in her back in the past. She is being actively treated with medical management and pulmonary care. Review of Systems She denies any new pains and lower extremity is. She says that she has weakness in her bilateral legs worse on the right than left. She says she has braces for her bilateral feet that she uses at home and she endplates of the walker. She has never used a brace for her back ever had any procedures on her back specifically. She says she is not having terrible pain at her back and occasionally sore for her. Past Medical History Past Medical History: Asthma, Coronary Artery Disease (CAD), Cancer, Chest Pain / Angina, COPD, Diabetes Mellitus, GERD/Reflux, Hyperlipidemia, Hypertension, Myocardial Infarction ([place]), Pneumonia, Sleep Apnea/CPAP/BIPAP Additional Past Medical History / Comment(s): 05/28/17 [place] with cardiac arrest/successful resuscitation and had CABG with post op Afib/anemia, previous MIs in 1998 and 2010, IDDM type II, [place] with past CPAP use, sleeps in a recliner d/t coughs when flat, R breast cancer with lumpectomy/lymph node removals and had radiation, anemia, bilateral lower leg edema, unsteady gait with frequent falls. Last Myocardial Infarction Date:: 2017 History of Any Multi-Drug Resistant Organisms: None Reported Past Surgical History: Breast Surgery, Heart Catheterization, Heart Catheterization With Stent, Hysterectomy, Tonsillectomy Additional Past Surgical History / Comment(s): 05/2017 CABG 4 vessel, bronchoscopy with lavage, EGD with peg, tracheostomy, PICC line, 07/2010 PCI with stent to RCA, R breast lumpectomy/lymph node removals, colonoscopy with benign polypectomies. Past Anesthesia/Blood Transfusion Reactions: No Reported Reaction Additional Past Anesthesia/Blood Transfusion Reaction / Comm: Pt states she received blood in past without reaction. Date of Last Stent Placement:: 2010 Smoking Status: Former smoker - Past Family History Mother Family Medical History: Cancer, Hyperlipidemia, Hypertension Additional Family Medical History / Comment(s): Mother had breast cancer 50 yrs ago. She is living. Father Family Medical History: Diabetes Mellitus Additional Family Medical History / Comment(s): Father is . Medications and Allergies Home Medications Medication Instructions Recorded Confirmed Type Budesonide [Pulmicort] 1 mg INHALATION RT-BID nebu 06/18/17 09/30/18 Rx Ipratropium-Albuterol Nebulize 3 ml INHALATION RT-Q4H ampul.neb 06/18/17 09/30/18 Rx [Duoneb 0.5 mg-3 mg/3 ml Soln] Albuterol Sulfate [Proair Hfa] 1 - 2 puff INHALATION RT-Q6H PRN 09/30/18 09/30/18 History Alendronate Sodium 70 mg PO Q7D 09/30/18 09/30/18 History Anastrozole [Arimidex] 1 mg PO DAILY 09/30/18 09/30/18 History Apixaban [Eliquis] 5 mg PO DAILY 09/30/18 09/30/18 History Atorvastatin [Lipitor] 40 mg PO DAILY 09/30/18 09/30/18 History FLUoxetine HCL [PROzac] 20 mg PO DAILY 09/30/18 09/30/18 History Famotidine [Pepcid] 20 mg PO BID 09/30/18 09/30/18 History Furosemide [Lasix] 40 mg PO DAILY 09/30/18 09/30/18 History HYDROcodone/APAP 5-325MG [Windom 1 tab PO BID PRN 09/30/18 09/30/18 History 5-325] Insulin Aspart [NovoLOG Flexpen] 28 units SQ AC-TID 09/30/18 09/30/18 History Insulin Glargine [Lantus] 25 unit SQ HS 09/30/18 09/30/18 History Lisinopril [Zestril] 10 mg PO DAILY 09/30/18 09/30/18 History Metoprolol Tartrate [Lopressor] 50 mg PO DAILY 09/30/18 09/30/18 History Montelukast [Singulair] 10 mg PO HS 09/30/18 09/30/18 History Potassium Chloride ER [K-Dur 20] 20 meq PO DAILY 09/30/18 09/30/18 History Sennosides-Docusate Sodium 1 tab PO HS 09/30/18 09/30/18 History [Senokot-S] amLODIPine [Norvasc] 10 mg PO DAILY 09/30/18 09/30/18 History metFORMIN HCL 1,000 mg PO BID 09/30/18 09/30/18 History Allergies Allergy/AdvReac Type Severity Reaction Status Date / Time Penicillins Allergy Severe Rash/Hives Verified 09/30/18 08:54 Physical Examination Osteopathic Statement: *. No significant issues noted on an osteopathic structural exam other than those noted in the History and Physical/Consult. - L Spine: dermatomal strength & reflexes bilateral Strength: hip flexion: 4/5 Strength: hip extension: 4/5 Strength: ankle dorsiflexion: 0/5 (And the patient's back there is no was lacerations or abrasions. She is obese. He is nontender to palpation.At her lower extremities she is able lift her legs up off the bed independently. There is no pain with internal/external rotation of her hips.With dorsiflexion on her right leg she has 6Weakness. She essentially has 0 out of 5 dorsiflexion and EHL on the right ankle and foot. She has 2-3 out of 5 dorsi flexion and EHL on the left. Her calves are soft nontender. Her thighs soft nontender. Negative Homans. She has loss of her Achilles reflex bilaterally. There is no clonus. There is no hyperreflexia.) Results - Labs Labs: Abnormal Lab Results - Last 24 Hours (Table) 07/10/19 07/10/19 07/10/19 Range/Units 11:04 13:25 17:06 ABG pO2 73 L (83-108) mmHg ABG HCO3 26 H (21-25) mmol/L ABG Total CO2 27 H (19-24) mmol/L POC Glucose (mg/dL) 213 H 137 H (75-99) mg/dL 10/02/18 10/03/18 Range/Units 19:55 07:00 ABG pO2 (83-108) mmHg ABG HCO3 (21-25) mmol/L ABG Total CO2 (19-24) mmol/L POC Glucose (mg/dL) 254 H 180 H (75-99) mg/dL H & H 09/30/18 10/02/18 Range/Units 07:55 07:40 Hgb 13.5 12.7 (11.4-16.0) gm/dL Hct 42.0 40.2 (34.0-46.0) % Coagulation 09/30/18 Range/Units 07:55 INR 0.9 (<1.2) Result Diagrams: 10/02/18 07:40 10/02/18 07:40 - Diagnostic results Lumbar MRI with/without contrast: report reviewed, image reviewed (Lumbar images from a few days ago are reviewed. She has evidence of grade 2 spondylo listhesis L5-S1 and grade 1 retrolisthesis L4 5. There is significant disc degeneration. There is some limitations of the image due to motion artifact but she has evidence of significant stenosis L4 5 and L5-S1. There is no acute fractures.) Assessment and Plan Assessment: Spondylolisthesis L4 5 L5-S1, Multiple medical issues including stroke and multiple myocardial infarctions. Weakness bilateral lower extremity is worse on the right and left likely due to her CVA. Bilateral lower extremity foot drop due to CVA Low back pain with some radiculopathy Plan: Spondylolisthesis L4 5 L5-S1, Multiple medical issues including stroke and multiple myocardial infarctions. Weakness bilateral lower extremity is worse on the right and left likely due to her CVA. Bilateral lower extremity foot drop due to CVA Low back pain with some radiculopathy In regards to patient's lower extremity radiculopathy and footdrop I think that main component of her lower extremity weakness is due to her stroke in the past. She already has bilateral AFOs as she states at bedside that she uses at home to help her endplate. She indicates with a walker. She has significant weakness in her lower extremities but this is chronic for her and does not seem to be specifically spinal in nature. She does have significant spondylolisthesis L4 5 and L5-S1 which gives her occasional pain and radicular symptoms. She is not likely to be a good candidate for any surgical intervention for her lumbar spine as it would require decompression and fusion surgery which may be a bit too extensive for her. She does not seem to be having terrible radicular pain and I would continue with conservative treatment and management. I think that she could continue to make progress with continued focal physical therapy for inflation mobilization and potential strengthening of her lower extremities. This could be done outpatient and she has already started on inpatient physical therapy. If her radicular symptoms were to become worse she would be a candidate for interventional pain management which can be done as outpatient as well. Many of her symptoms stem from her CVA rather than her stenosis but she could become a candidate for surgical intervention for her low back if her radicular symptoms and pain were to worsen, and all conservative measures were to fail. She has significant medical history I would not be good candidate for surgery and those terms and would be at extremely medical risk terms of surgical intervention. We did not have any plans for surgery at this point. We can follow her up on an outpatient basis. She should continue with her continued medical management. She can continue with her bracing at her bilateral lower extremities and physical therapy.
[2018-10-03 11:02] LABS: Glucose,Whole Blood 150 mg/dL (75-99)
--- NOTE | 2018-10-03 11:06 | P.PN ---
Subjective Progress Note Date: 10/03/18 Principal diagnosis: Fall, weakness and altered mental status This is a very pleasant 68-year-old female patient who follows with Dr. Howell as her primary care physician. She has multiple medical problems including morbid obesity with obesity hypoventilation syndrome and obstructive sleep apnea not on BiPAP in the outpatient setting. She did have a unit that was taken back due to noncompliance. She was last seen in our office in January 2017. She also has history of coronary artery disease with stent placement to the RCA, diabetes mellitus, hyperlipidemia, hypertension, asthma, chronic lower extremity edema right breast cancer with lumpectomy, lymph nodes removed and radiation, on Arimidex. She presented here to the emergency room on 09/30/2018 after sustaining a fall at home. She did hit her head against the door. No loss of consciousness. CT scans of the brain showed no acute abnormality. Neurology is following. She had also been complaining of shortness of breath this admission where consulted for the same today. Chest x-ray reveals no acute pulmonary process. She is currently maintaining O2 saturations at 99% on 2 L/m per nasal cannula. She's been afebrile. White count 5.9. Hemoglobin 12.7. Creatinine 0.70. Echocardiogram revealed preserved left ventricular systolic function with ejection fraction 60-65%. No significant valvular abnormalities. No pulmonary hypertension. The patient is seen today 10/03/2018 in follow-up on the regular medical floor. She is more awake and alert today. Oriented to person and place. He denies any worsening shortness of breath, cough or congestion. No chills or night sweats. Maintaining O2 saturations in the 90s on 2 L/m per nasal cannula. She's been afebrile. Arterial blood gases on room air revealed a pO2 of 73, pCO2 of 42 and a pH is 7.40. Would not qualify for BiPAP based on this mild hypercapnia. Remains on bronchodilators. Anticoagulated with Eliquis. Objective - Vital Signs Vital signs: Vital Signs Temp 98.3 F 10/03/18 05:00 Pulse 89 10/03/18 08:35 Resp 16 10/03/18 08:35 BP 160/97 10/03/18 05:00 Pulse Ox 94 L 10/03/18 05:00 Intake & Output 10/02/18 10/03/18 10/03/18 18:59 06:59 18:59 Intake Total 360 1510 Balance 360 1510 Intake: Intake, IV Titration 920 Amount Sodium Chloride 0.9% 1, 920 000 ml @ 80 mls/hr IV . [id number] OLVIN Rx#:[id number] Oral 360 590 Other: Voiding Method Incontinent Incontinent Incontinent # Voids 2 2 1 # Bowel Movements 1 - Exam GENERAL EXAM: Morbidly obese 68-year-old female patient, comfortable in no apparent distress. On 2 L. HEAD: Normocephalic. EYES: Normal reaction of pupils, equal size. NOSE: Clear with pink turbinates. THROAT: Crowding the posterior pharynx No erythema or exudates. NECK: Short. No masses, no JVD. CHEST: No chest wall deformity. LUNGS: Equal air entry lung sounds clear. Diminished. CVS: S1 and S2 normal with no audible murmur, regular rhythm. ABDOMEN: No hepatosplenomegaly, normal bowel sounds, no guarding or rigidity. SPINE: No scoliosis or deformity SKIN: No rashes CENTRAL NERVOUS SYSTEM: No focal deficits, tone is normal in all 4 extremities. EXTREMITIES: There is no peripheral edema. No clubbing, no cyanosis. Peripheral pulses are intact. - Labs CBC & Chem 7: 10/02/18 07:40 10/03/18 08:41 Labs: Abnormal Lab Results - Last 24 Hours (Table) 10/02/18 10/02/18 10/02/18 Range/Units 11:04 13:25 17:06 ABG pO2 73 L (83-108) mmHg ABG HCO3 26 H (21-25) mmol/L ABG Total CO2 27 H (19-24) mmol/L Glucose (74-99) mg/dL POC Glucose (mg/dL) 213 H 137 H (75-99) mg/dL 10/02/18 10/03/18 10/03/18 Range/Units 19:55 07:00 08:41 ABG pO2 (83-108) mmHg ABG HCO3 (21-25) mmol/L ABG Total CO2 (19-24) mmol/L Glucose 203 H (74-99) mg/dL POC Glucose (mg/dL) 254 H 180 H (75-99) mg/dL Assessment and Plan Assessment: Impression: #1 Fall, tripping fall without loss of consciousness, hitting her head with some altered mental status. #2 Gait disturbance with frequent falls secondary to morbid obesity, suspected diabetic neuropathy, degenerative joint disease. #3 Dyspnea, multifactorial, secondary to mild exacerbation of intermittent asthma, morbid obesity, obstructive sleep apnea with obesity hypoventilation syndrome, previously had BiPAP in the outpatient setting that was removed due to noncompliance. #4 History of cardiac arrest status post coronary artery bypass grafting with prolonged ventilation requiring tracheostomy and PEG tube insertion with subsequent removals. #5 History of coronary artery disease with previous stent placement to the RCA. #6 Hypertension. #7 Hyperlipidemia. #8 Diabetes mellitus. #9 Previous pneumonias. #10 Previous tobacco dependence. #11 History of right-sided breast cancer status post lumpectomy/radiation. #12 Poor overall functional performance based on the above-mentioned multiple comorbidities. Plan: The patient was seen and evaluated by Dr. Waddell. She is stable from the pulmonary standpoint. Continue Singulair, DuoNeb inhalations, Pulmicort in halations. Arterial blood gases revealed a pCO2 of 42 on room air not qualifying her for home BiPAP. She should be reevaluated in the outpatient setting regarding her obstructive sleep apnea which was documented as quite severe with an AHI of 80. She had previously been on BiPAP at a pressure 21/17 cm of water. Probable transfer to [facility] once cleared medically. I, the cosigning physician, performed a history & physical examination of the patient. Lungs sounds clear, diminished. Maintaining good O2 saturations in the 90s on 2 L/m per nasal cannula. I discussed the assessment and plan of care with my nurse practitioner, Etta Loyola. I attest to the above note as dictated janki haynes.
--- NOTE | 2018-10-03 11:54 | P.CRDCN ---
History of Present Illness Consult date: 10/03/18 History of present illness: This is a 68-year-old female with history of of multiple medical problems including obesity, hypoventilation syndrome and sleep apnea, and also known ischemic heart disease who underwent aortic coronary bypass surgery. Patient is now admitted to the hospital with periods of confusion and falls. Apparently she is more alert and oriented today compared to yesterday. Denies any chest pain. Complains of chronic shortness of breath. She is seen by neurophysiologist and being addressed. From Cardec standpoint patient seems to be stable. We're asked to see the patient because of abnormal EKG. EKG showed some T-wave inversion in anterior leads which doesn't appear to be technically significant. Echo showed normal LV function. Patient had a four-vessel bypass surgery and following that patient had a prolonged hospitalization with intubation. Subsequently she also stayed at the nursing facility for a long time. There are no acute cardiac issues at this time. We'll following the as needed Review of Systems As per the chart Past Medical History Past Medical History: Asthma, Coronary Artery Disease (CAD), Cancer, Chest Pain / Angina, COPD, Diabetes Mellitus, GERD/Reflux, Hyperlipidemia, Hypertension, Myocardial Infarction ([place]), Pneumonia, Sleep Apnea/CPAP/BIPAP Additional Past Medical History / Comment(s): 05/28/17 [place] with cardiac arr est/successful resuscitation and had CABG with post op Afib/anemia, previous MIs in 1998 and 2010, IDDM type II, [place] with past CPAP use, sleeps in a recliner d/t coughs when flat, R breast cancer with lumpectomy/lymph node removals and had radiation, anemia, bilateral lower leg edema, unsteady gait with frequent falls. Last Myocardial Infarction Date:: 2017 History of Any Multi-Drug Resistant Organisms: None Reported Past Surgical History: Breast Surgery, Heart Catheterization, Heart Catheterization With Stent, Hysterectomy, Tonsillectomy Additional Past Surgical History / Comment(s): 05/2017 CABG 4 vessel, bronchoscopy with lavage, EGD with peg, tracheostomy, PICC line, 07/2010 PCI with stent to RCA, R breast lumpectomy/lymph node removals, colonoscopy with benign polypectomies. Past Anesthesia/Blood Transfusion Reactions: No Reported Reaction Additional Past Anesthesia/Blood Transfusion Reaction / Comment(s): Pt states she received blood in past without reaction. Date of Last Stent Placement:: 2010 Smoking Status: Former smoker - Past Family History Mother Family Medical History: Cancer, Hyperlipidemia, Hypertension Additional Family Medical History / Comment(s): Mother had breast cancer 50 yrs ago. She is living. Father Family Medical History: Diabetes Mellitus Additional Family Medical History / Comment(s): Father is . Medications and Allergies Home Medications Medication Instructions Recorded Confirmed Type Budesonide [Pulmicort] 1 mg INHALATION RT-BID nebu 06/18/17 09/30/18 Rx Ipratropium-Albuterol Nebulize 3 ml INHALATION RT-Q4H ampul.neb 06/18/17 09/30/18 Rx [Duoneb 0.5 mg-3 mg/3 ml Soln] Albuterol Sulfate [Proair Hfa] 1 - 2 puff INHALATION RT-Q6H PRN 09/30/18 09/30/18 History Alendronate Sodium 70 mg PO Q7D 09/30/18 09/30/18 History Anastrozole [Arimidex] 1 mg PO DAILY 09/30/18 09/30/18 History Apixaban [Eliquis] 5 mg PO DAILY 09/30/18 09/30/18 History Atorvastatin [Lipitor] 40 mg PO DAILY 09/30/18 09/30/18 History FLUoxetine HCL [PROzac] 20 mg PO DAILY 09/30/18 09/30/18 History Famotidine [Pepcid] 20 mg PO BID 09/30/18 09/30/18 History Furosemide [Lasix] 40 mg PO DAILY 09/30/18 09/30/18 History HYDROcodone/APAP 5-325MG [[place] 1 tab PO BID PRN 09/30/18 09/30/18 History 5-325] Insulin Aspart [NovoLOG Flexpen] 28 units SQ AC-TID 09/30/18 09/30/18 History Insulin Glargine [Lantus] 25 unit SQ HS 09/30/18 09/30/18 History Lisinopril [Zestril] 10 mg PO DAILY 09/30/18 09/30/18 History Metoprolol Tartrate [Lopressor] 50 mg PO DAILY 09/30/18 09/30/18 History Montelukast [Singulair] 10 mg PO HS 09/30/18 09/30/18 History Potassium Chloride ER [K-Dur 20] 20 meq PO DAILY 09/30/18 09/30/18 History Sennosides-Docusate Sodium 1 tab PO HS 09/30/18 09/30/18 History [Senokot-S] amLODIPine [Norvasc] 10 mg PO DAILY 09/30/18 09/30/18 History metFORMIN HCL 1,000 mg PO BID 09/30/18 09/30/18 History Allergies Allergy/AdvReac Type Severity Reaction Status Date / Time Penicillins Allergy Severe Rash/Hives Verified 09/30/18 08:54 Physical Exam Vitals: Vital Signs Temp Pulse Pulse Pulse Pulse Pulse Resp 10/03/18 11:29 88 10/03/18 11:10 97.6 F 85 16 10/03/18 11:04 87 10/03/18 08:35 89 91 82 84 16 10/03/18 07:25 88 10/03/18 07:13 90 10/03/18 05:00 98.3 F 91 16 10/03/18 03:33 92 10/03/18 03:20 92 10/02/18 23:50 92 10/02/18 23:40 88 10/02/18 21:00 97.9 F 94 20 10/02/18 20:04 94 10/02/18 19:46 93 10/02/18 16:00 82 18 10/02/18 15:38 108 H 10/02/18 15:25 108 H 10/02/18 12:02 76 10/02/18 11:51 72 BP BP Pulse Ox 10/03/18 11:29 10/03/18 11:10 146/87 97 10/03/18 11:04 10/03/18 08:35 10/03/18 07:25 10/03/18 07:13 10/03/18 05:00 160/97 94 L 10/03/18 03:33 10/03/18 03:20 10/02/18 23:50 10/02/18 23:40 10/02/18 21:00 165/75 95 10/02/18 20:04 10/02/18 19:46 95 10/02/18 16:00 10/02/18 15:38 10/02/18 15:25 10/02/18 12:02 10/02/18 11:51 Intake and Output 10/02/18 10/03/18 10/03/18 22:59 06:59 14:59 Intake Total 640 1230 Balance 640 1230 Intake: Intake, IV Titration 280 640 Amount Sodium Chloride 0.9% 1, 280 640 000 ml @ 80 mls/hr IV . [id number] OLVIN Rx#:[id number] Oral 360 590 Other: Voiding Method Incontinent Incontinent # Voids 2 2 1 GENERAL EXAM: Patient is alert and oriented time and place and doesn't appear to be in any acute distress HEENT: Normocephalic. Normal reaction of pupils, equal size, normal range of extraocular motion. No erythema or exudates in the throat. NECK: No masses, no nuchal rigidity. CHEST: No chest wall deformity. LUNGS: Decreased air exchange HEART: S1 and S2 normal with no audible mumurs or gallops. Distant heart sounds.. ABDOMEN: No hepatosplenomegaly, normal bowel sounds, no guarding or rigidity. SKIN: No rashes CENTRAL NERVOUS SYSTEM: No focal deficits. EXTREMITIES: No cyanosis, clubbing or edema. Results 10/02/18 07:40 10/03/18 08:41 Comprehensive Metabolic Panel 10/03/18 Range/Units 08:41 Sodium 140 (137-145) mmol/L Potassium 3.9 (3.5-5.1) mmol/L Chloride 103 (98-107) mmol/L Carbon Dioxide 28 (22-30) mmol/L BUN 12 (7-17) mg/dL Creatinine 0.65 (0.52-1.04) mg/dL Glucose 203 H (74-99) mg/dL Calcium 10.0 (8.4-10.2) mg/dL Current Medications Generic Name Dose Route Start Last Admin Trade Name Freq PRN Reason Stop Dose Admin Albuterol/Ipratropium 3 ml 09/30/18 12:00 10/03/18 11:02 Duoneb 0.5 Mg-3 Mg/3 Ml Soln INHALATION 3 ml RT-Q4H OLVIN Administration Amlodipine Besylate 10 mg 09/30/18 16:10 10/03/18 07:52 Norvasc PO 10 mg DAILY OLVIN Administration Anastrozole 1 mg 10/01/18 09:00 10/03/18 07:52 Arimidex PO 1 mg DAILY OLVIN Administration Apixaban 5 mg 10/01/18 09:00 10/03/18 07:52 Eliquis PO 5 mg DAILY OLVIN Administration Atorvastatin Calcium 40 mg 10/01/18 09:00 10/03/18 07:52 Lipitor PO 40 mg DAILY OLVIN Administration Budesonide 1 mg 09/30/18 20:00 10/03/18 07:12 Pulmicort INHALATION 1 mg RT-BID OLVIN Administration Famotidine 20 mg 09/30/18 21:00 10/03/18 07:53 Pepcid PO 20 mg BID OLVIN Administration Fluoxetine HCl 20 mg 10/01/18 09:00 10/03/18 07:53 Prozac PO 20 mg DAILY OLVIN Administration Furosemide 40 mg 10/01/18 09:00 10/03/18 07:53 Lasix PO 40 mg DAILY OLVIN Administration Sodium Chloride 1,000 mls @ 80 mls/hr 09/30/18 10:30 10/03/18 05:22 Saline 0.9% IV 80 mls/hr .[id number] OLVIN Administration Insulin Aspart 0 unit 09/30/18 21:00 10/03/18 07:51 Novolog SQ 2 unit ACHS OLVIN Administration Protocol Insulin Aspart 3 unit 10/01/18 07:30 10/03/18 07:51 Novolog SQ 3 unit AC-TID OLVIN Administration Insulin Detemir 15 unit 09/30/18 21:00 10/02/18 20:34 Levemir SQ 15 unit HS OLVIN Administration Lisinopril 10 mg 10/01/18 09:00 10/03/18 07:53 Zestril PO 10 mg DAILY OLVIN Administration Lorazepam 1 mg 10/01/18 12:46 10/01/18 15:32 Ativan IV 1 mg ONCE PRN Administration Anxiety Metformin HCl 1,000 mg 09/30/18 21:00 10/03/18 07:53 Glucophage PO 1,000 mg BID OLVIN Administration Metoprolol Tartrate 25 mg 09/30/18 21:00 10/03/18 07:53 Lopressor PO 25 mg BID OLVIN Administration Montelukast Sodium 10 mg 09/30/18 21:00 10/02/18 20:34 Singulair PO 10 mg HS OLVIN Administration Naloxone HCl 0.2 mg 09/30/18 10:16 Narcan IV Q2M PRN Opioid Reversal Potassium Chloride 20 meq 10/01/18 09:00 10/03/18 07:54 K-Dur 20 PO 20 meq DAILY OLVIN Administration Senna/Docusate Sodium 1 each 09/30/18 21:00 10/02/18 20:34 Senokot-S PO 1 each HS OLVIN Administration Intake and Output 10/02/18 10/03/18 10/03/18 22:59 06:59 14:59 Intake Total 640 1230 Balance 640 1230 Intake: Intake, IV Titration 280 640 Amount Sodium Chloride 0.9% 1, 280 640 000 ml @ 80 mls/hr IV . [id number] OLVIN Rx#:[id number] Oral 360 590 Other: Voiding Method Incontinent Incontinent # Voids 2 2 1 10/02/18 07:40 10/03/18 08:41 EKG Interpretations (text) Sinus rhythm with T-wave changes in anterior leads Assessment and Plan (1) Ischemic heart disease Current Visit: Yes Status: Acute Code(s): I25.9 - CHRONIC ISCHEMIC HEART DISEASE, UNSPECIFIED SNOMED Code(s): 879305208 (2) Confusion state Current Visit: Yes Status: Acute Code(s): F44.89 - OTHER DISSOCIATIVE AND CONVERSION DISORDERS SNOMED Code(s): 708138379 (3) History of heart bypass surgery Current Visit: Yes Status: Acute Code(s): Z95.1 - PRESENCE OF AORTOCORONARY BYPASS GRAFT SNOMED Code(s): 300624203 (4) Obesity Current Visit: Yes Status: Acute Code(s): E66.9 - OBESITY, UNSPECIFIED SNOMED Code(s): 611765791 (5) Hypoventilation syndrome Current Visit: Yes Status: Acute Code(s): R06.89 - OTHER ABNORMALITIES OF BREATHING SNOMED Code(s): 54651811 Plan: Continue current cardiac medications. No further cardiac workup at this time. Echo showed normal LV function. We'll follow as needed
[2018-10-03 17:03] LABS: Folate, Serum 11.1 ng/mL
[2018-10-03 17:05] LABS: Glucose,Whole Blood 225 mg/dL (75-99)
[2018-10-03 19:58] LABS: Glucose,Whole Blood 164 mg/dL (75-99)
[2018-10-03] MEDS: INSULIN DETEMIR (LEVEMIR) 100 UNIT/ML SYR SQ SCH (20:09)
[2018-10-03] MEDS: MONTELUKAST 10 MG TAB PO SCH (20:10)
[2018-10-03] MEDS: SENNOSIDES-DOCUSATE SODIUM 1 EACH TAB PO SCH (20:10)
--- NOTE | 2018-10-03 20:17 | P.PN ---
Progress Note - Text Progress Note Date: 10/03/18 Presenting complaint: Tired Interval history: This is a 68-year-old patient who follows with Dr. Екатерина soni. Rather extensive medical history. Chronic stable medical conditions include coronary artery disease, asthma, diabetes, GERD, hyperlipidemia, obstructive sleep apnea, bilateral kidney stones, left adrenal nodule 2.4 cm, right axillary lesion. Patient normally uses a wheelchair to get about. Patient had a couple of falls at home. Yet again fell and presented to ER. Patient thinks she lost her balance. No focal weakness. No chest pain. No fever no chills. Today-up in bed. On blood gases CO2 was not up. Not felt to be of BiPAP candidate. Family requesting to go to inpatient rehab. account manager sales representative on the case. Patient does feel a bit tired. Review of systems: Was done for constitutional, cardiovascular, GI, pulmonary. relevant finding as above Current medications are reviewed that include: Bronchodilator,. Lasix Physical examination: VITAL SIGNS: 97.6, 85, 16, 146/87, 97% 2 L GENERAL: Laying in bed, awake but tired EYES: Pupils equal. Conjunctiva normal. HEENT: External appearance of nose and ears normal, oral cavity grossly normal. NECK: JVD not raised; masses not palpable. HEART: First and second heart sounds are normal; edema present LUNGS: Respiratory rate increased, decreased breath sounds. ABDOMEN: Soft, nontender, liver spleen not palpable, no masses palpable. PSYCH: Answering questions appropriately NEUROLOGICAL: Cranial nerves grossly; no facial asymmetry, power and sensation grossly intact. Investigations: Reviewed in the clinical context: Potassium 3.9 and creatinine 0.65 ABG-pH 7.4 pCO2 27 pO2 73 EKG tracing personally reviewed by me shows flipped T waves Chest x-ray film personally reviewed by me shows some cardiomegaly, no evidence of fluid overload Computed tomography scan of the brain, no acute Urine drug screen positive for opiates 2-D echo-shows EF of 60-65%, concentric left medical hypertrophy Assessment: -This is a patient's with couple of falls at home. Rather lethargic. This could be acute metabolic encephalopathy could be from a pain medication she takes [place]. -Chronic hypoxic respiratory failure. No CO2 retention per blood gases on air -Chronic medical debility does use a wheelchair and a walker for transfer -Obesity BMI 34.3 -COPD in an ex-smoker -Coronary artery disease with prior history of coronary bypass -GERD -Hyperlipidemia -Essential hypertension -Obstructive sleep apnea uses CPAP machine in the past -Chronic bilateral lower extremity venous insufficiency -Chronic medical debility uses a wheelchair and a walker for transfer -Chronic left adrenal mass 2.5 cm -Bilateral foot drop -Peripheral neuropathy Plan: Patient will be assessed for oxygen at home. account manager sales representative involved in looking at patient qualify for inpatient rehab. Care was discussed with the family the bedside. No additional changes per cardiology. Orthopedic consultation noted. Await decision from manager social about decision to ECF if she qualifies
[2018-10-04] MEDS: IPRATROPIUM-ALBUTEROL 3 ML NEB INHALATION SCH ×6 (03:23→23:10)
[2018-10-04] MEDS: SODIUM CHLORIDE 0.9% 1,000 ML IV SCH ×2 (04:21→17:52)
[2018-10-04 06:55] LABS: Glucose,Whole Blood 152 mg/dL (75-99)
[2018-10-04] MEDS: BUDESONIDE 1 MG/2 ML NEBU INHALATION SCH ×2 (07:10→19:04)
[2018-10-04 09:02] LABS: Calcium 10.6 mg/dL (8.4-10.2); Potassium 4.2 mmol/L (3.5-5.1)
[2018-10-04] MEDS: amLODIPine 10 MG TAB PO SCH (09:32)
[2018-10-04] MEDS: METOPROLOL TARTRATE 25 MG TAB PO SCH ×2 (09:32→21:44)
[2018-10-04] MEDS: FLUoxetine HCL 20 MG CAP PO SCH (09:32)
[2018-10-04] MEDS: metFORMIN 500 MG TAB PO SCH ×2 (09:32→21:45)
[2018-10-04] MEDS: ATORVASTATIN 40 MG TAB PO SCH (09:32)
[2018-10-04] MEDS: LISINOPRIL 10 MG TAB PO SCH (09:32)
[2018-10-04] MEDS: POTASSIUM CHLORIDE ER 20 MEQ TAB.ER PO SCH (09:32)
[2018-10-04] MEDS: FAMOTIDINE 20 MG TAB PO SCH ×2 (09:32→21:44)
[2018-10-04] MEDS: INSULIN ASPART (NovoLOG) 100 UNIT/ML VIAL SQ SCH ×7 (09:33→22:10)
[2018-10-04] MEDS: APIXABAN 5 MG TAB PO SCH (09:33)
[2018-10-04] MEDS: FUROSEMIDE 40 MG TAB PO SCH (09:33)
[2018-10-04] MEDS: ANASTROZOLE 1 MG TAB PO SCH (09:34)
[2018-10-04 11:22] LABS: Glucose,Whole Blood 186 mg/dL (75-99)
--- NOTE | 2018-10-04 11:45 | P.PN ---
Subjective Progress Note Date: 10/04/18 Principal diagnosis: Fall, weakness and altered mental status This is a very pleasant 68-year-old female patient who follows with Dr. Howell as her primary care physician. She has multiple medical problems including morbid obesity with obesity hypoventilation syndrome and obstructive sleep apnea not on BiPAP in the outpatient setting. She did have a unit that was taken back due to noncompliance. She was last seen in our office in January 2017. She also has history of coronary artery disease with stent placement to the RCA, diabetes mellitus, hyperlipidemia, hypertension, asthma, chronic lower extremity edema right breast cancer with lumpectomy, lymph nodes removed and radiation, on Arimidex. She presented here to the emergency room on 09/30/2018 after sustaining a fall at home. She did hit her head against the door. No loss of consciousness. CT scans of the brain showed no acute abnormality. Neurology is following. She had also been complaining of shortness of breath this admission where consulted for the same today. Chest x-ray reveals no acute pulmonary process. She is currently maintaining O2 saturations at 99% on 2 L/m per nasal cannula. She's been afebrile. White count 5.9. Hemoglobin 12.7. Creatinine 0.70. Echocardiogram revealed preserved left ventricular systolic function with ejection fraction 60-65%. No significant valvular abnormalities. No pulmonary hypertension. The patient is seen today 10/03/2018 in follow-up on the regular medical floor. She is more awake and alert today. Oriented to person and place. He denies any worsening shortness of breath, cough or congestion. No chills or night sweats. Maintaining O2 saturations in the 90s on 2 L/m per nasal cannula. She's been afebrile. Arterial blood gases on room air revealed a pO2 of 73, pCO2 of 42 and a pH is 7.40. Would not qualify for BiPAP based on this mild hypercapnia. Remains on bronchodilators. Anticoagulated with Eliquis. The patient is seen today 10/04/2018 in follow-up on the regular medical floor. She is resting comfortably in bed. No worsening shortness of breath, cough or congestion. Maintaining good O2 saturations in the upper 90s on 2 L/m per nasal cannula. Sodium 140. Potassium 4.2. Chloride 102. Bicarb 29. Creatinine 0.79. She is continued on DuoNeb inhalations, Pulmicort inhalations, Singulair. Objective - Vital Signs Vital signs: Vital Signs Temp 97.5 F L 10/04/18 04:43 Pulse 84 10/04/18 11:03 Resp 18 10/04/18 04:43 BP 149/90 10/04/18 09:31 Pulse Ox 96 10/04/18 04:43 Intake & Output 10/03/18 10/04/18 10/04/18 18:59 06:59 18:59 Intake Total 240 Balance 240 Intake: Oral 240 Other: Voiding Method Incontinent Incontinent Incontinent # Voids 1 4 # Bowel Movements 1 - Exam GENERAL EXAM: Morbidly obese 68-year-old female patient, resting in bed, in no apparent distress. On 2 L. HEAD: Normocephalic. EYES: Normal reaction of pupils, equal size. NOSE: Clear with pink turbinates. THROAT: Crowding the posterior pharynx No erythema or exudates. NECK: Short. No masses, no JVD. CHEST: No chest wall deformity. LUNGS: Equal air entry lung sounds clear. Diminished. CVS: S1 and S2 normal with no audible murmur, regular rhythm. ABDOMEN: No hepatosplenomegaly, normal bowel sounds, no guarding or rigidity. SPINE: No scoliosis or deformity SKIN: No rashes CENTRAL NERVOUS SYSTEM: No focal deficits, tone is normal in all 4 extremities. EXTREMITIES: There is trace peripheral edema. No clubbing, no cyanosis. Peripheral pulses are intact. - Labs CBC & Chem 7: 10/02/18 07:40 10/04/18 07:39 Labs: Abnormal Lab Results - Last 24 Hours (Table) 10/03/18 10/03/18 10/04/18 Range/Units 17:03 19:57 06:53 Glucose (74-99) mg/dL POC Glucose (mg/dL) 225 H 164 H 152 H (75-99) mg/dL Calcium (8.4-10.2) mg/dL 10/04/18 10/04/18 Range/Units 07:39 11:11 Glucose 154 H (74-99) mg/dL POC Glucose (mg/dL) 186 H (75-99) mg/dL Calcium 10.6 H (8.4-10.2) mg/dL Assessment and Plan Assessment: Impression: #1 Fall, tripping fall without loss of consciousness, hitting her head with some altered mental status. #2 Gait disturbance with frequent falls secondary to morbid obesity, suspected diabetic neuropathy, degenerative joint disease. #3 Dyspnea, multifactorial, secondary to mild exacerbation of intermittent asthma, morbid obesity, obstructive sleep apnea with obesity hypoventilation syn drome, previously had BiPAP in the outpatient setting that was removed due to noncompliance. #4 History of cardiac arrest status post coronary artery bypass grafting with prolonged ventilation requiring tracheostomy and PEG tube insertion with subsequent removals. #5 History of coronary artery disease with previous stent placement to the RCA. #6 Hypertension. #7 Hyperlipidemia. #8 Diabetes mellitus. #9 Previous pneumonias. #10 Previous tobacco dependence. #11 History of right-sided breast cancer status post lumpectomy/radiation. #12 Poor overall functional performance based on the above-mentioned multiple comorbidities. Plan: The patient was seen and evaluated by Dr. Waddell. She is stable from the pulmonary standpoint. Probable transfer to [facility] once cleared medically. I, the cosigning physician, performed a history & physical examination of the patient. Lungs sounds clear, diminished. Maintaining good O2 saturations in the 90s on 2 L/m per nasal cannula. I discussed the assessment and plan of care with my nurse practitioner, Etta Loyola. I attest to the above note as dictated by her.
--- NOTE | 2018-10-04 12:30 | P.PN ---
Subjective Progress Note Date: 10/04/18 This is a 68-year-old female was admitted to the hospital following a fall and some altered mental status. EKG showed some mild abnormalities. Patient remains stable from cardiac standpoint. No complaints of chest pain. No arrhythmias. Overall patient to mental status is improved. She has chronic bautista rtness of breath, which is multifactorial. She is also seen by chronometer assembler. Overall, patient could go status seemed to be stable. She will be transferred to extended care facility. We'll be seeing her on when necessary basis Objective - Vital Signs Vital signs: Vital Signs Temp 97.5 F L 10/04/18 04:43 Pulse 84 10/04/18 11:03 Resp 18 10/04/18 04:43 BP 149/90 10/04/18 09:31 Pulse Ox 96 10/04/18 04:43 Intake & Output 10/03/18 10/04/18 10/04/18 18:59 06:59 18:59 Intake Total 240 Balance 240 Intake: Oral 240 Other: Voiding Method Incontinent Incontinent Incontinent # Voids 1 4 # Bowel Movements 1 - Exam GENERAL EXAM: Patient is alert and oriented and doesn't appear to be in any acute distress HEENT: Normocephalic. Normal reaction of pupils, equal size, normal range of extraocular motion. No erythema or exudates in the throat. NECK: No masses, no nuchal rigidity. CHEST: No chest wall deformity. LUNGS: Show expiratory wheezes and rhonchi HEART: S1 and S2 normal with no audible mumurs or gallops. Regular rhythm, fe morals equal on both sides.. ABDOMEN: No hepatosplenomegaly, normal bowel sounds, no guarding or rigidity. SKIN: No rashes CENTRAL NERVOUS SYSTEM: No focal deficits. EXTREMITIES: No cyanosis, clubbing or edema. - Labs CBC & Chem 7: 10/02/18 07:40 10/04/18 07:39 Labs: Abnormal Lab Results - Last 24 Hours (Table) 10/03/18 10/03/18 10/04/18 Range/Units 17:03 19:57 06:53 Glucose (74-99) mg/dL POC Glucose (mg/dL) 225 H 164 H 152 H (75-99) mg/dL Calcium (8.4-10.2) mg/dL 10/04/18 10/04/18 Range/Units 07:39 11:11 Glucose 154 H (74-99) mg/dL POC Glucose (mg/dL) 186 H (75-99) mg/dL Calcium 10.6 H (8.4-10.2) mg/dL Assessment and Plan (1) Ischemic heart disease Current Visit: Yes Status: Acute Code(s): I25.9 - CHRONIC ISCHEMIC HEART DISEASE, UNSPECIFIED SNOMED Code(s): 595787735 (2) Confusion state Current Visit: Yes Status: Acute Code(s): F44.89 - OTHER DISSOCIATIVE AND CONVERSION DISORDERS SNOMED Code(s): 262539964 (3) History of heart bypass surgery Current Visit: Yes Status: Acute Code(s): Z95.1 - PRESENCE OF AORTOCORONARY BYPASS GRAFT SNOMED Code(s): 360433342 (4) Obesity Current Visit: Yes Status: Acute Code(s): E66.9 - OBESITY, UNSPECIFIED SNOMED Code(s): 799992713 (5) Hypoventilation syndrome Current Visit: Yes Status: Acute Code(s): R06.89 - OTHER ABNORMALITIES OF BREATHING SNOMED Code(s): 09272215 Plan: Patient seemed clinically stable. No cardiac issues. We'll follow when necessary
[2018-10-04] MEDS ORDERED: LOPERAMIDE 2 MG CAP PO PRN (15:48)
[2018-10-04 17:12] LABS: Glucose,Whole Blood 115 mg/dL (75-99)
[2018-10-04 21:11] LABS: Glucose,Whole Blood 142 mg/dL (75-99)
[2018-10-04] MEDS: SENNOSIDES-DOCUSATE SODIUM 1 EACH TAB PO SCH (21:44)
[2018-10-04] MEDS: MONTELUKAST 10 MG TAB PO SCH (21:44)
[2018-10-04] MEDS: INSULIN DETEMIR (LEVEMIR) 100 UNIT/ML SYR SQ SCH (21:45)
--- NOTE | 2018-10-04 23:01 | P.PN ---
Progress Note - Text Progress Note Date: 10/04/18 Presenting complaint: Tired Interval history: This is a 68-year-old patient who follows with Dr. Екатерина soni. Rather extensive medical history. Chronic stable medical conditions include coronary artery disease, asthma, diabetes, GERD, hyperlipidemia, obstructive sleep apnea, bilateral kidney stones, left adrenal nodule 2.4 cm, right axillary lesion. Patient normally uses a wheelchair to get about. Patient had a couple of falls at home. Yet again fell and presented to ER. Patient thinks she lost her balance. No focal weakness. No chest pain. No fever no chills. Today-laying in bed. Awake. Did tolerate her diet. On nasal cannula. at the bedside. No new issues. Review of systems: Was done for constitutional, cardiovascular, GI, pulmonary. relevant finding as above Current medications are reviewed that include: Bronchodilator,. Lasix by mouth Physical examination: VITAL SIGNS: 98.1, 89, 20, 151/101, repeat 149/92, 96% GENERAL: Laying in bed, awake EYES: Pupils equal. Conjunctiva normal. HEENT: External appearance of nose and ears normal, oral cavity grossly normal. NECK: JVD not raised; masses not palpable. HEART: First and second heart sounds are normal; edema present LUNGS: Respiratory rate increased, decreased breath sounds. ABDOMEN: Soft, nontender, liver spleen not palpable, no masses palpable. PSYCH: Answering questions appropriately NEUROLOGICAL: Cranial nerves grossly; no facial asymmetry, power and sensation grossly intact. Investigations: Reviewed in the clinical context: Potassium 4.2, creatinine 0.79 Accu-Cheks noted Chest x-ray film personally reviewed by me shows some cardiomegaly, no evidence of fluid overload Computed tomography scan of the brain, no acute Urine drug screen positive for opiates 2-D echo-shows EF of 60-65%, concentric left medical hypertrophy Assessment: -This is a patient's with couple of falls at home. Rather lethargic. This could be acute metabolic encephalopathy could be from a pain medication she takes [place]. -Chronic hypoxic respiratory failure. No CO2 retention per blood gases on air -Chronic medical debility does use a wheelchair and a walker for transfer -Obesity BMI 34.3 -COPD in an ex-smoker -Coronary artery disease with prior history of coronary bypass -GERD -Hyperlipidemia -Essential hypertension -Obstructive sleep apnea uses CPAP machine in the past -Chronic bilateral lower extremity venous insufficiency -Chronic medical debility uses a wheelchair and a walker for transfer -Chronic left adrenal mass 2.5 cm -Bilateral foot drop -Peripheral neuropathy Plan: Discussed with the spring encaser, patient and at the bedside. Patient to go to the [facility]. This will happen tomorrow. Patient has to be here for 3 nights. Other medications reviewed..
[2018-10-05] MEDS: IPRATROPIUM-ALBUTEROL 3 ML NEB INHALATION SCH ×3 (03:27→11:57)
[2018-10-05] MEDS: SODIUM CHLORIDE 0.9% 1,000 ML IV SCH (03:48)
[2018-10-05 04:42] VITALS: BP 137/85; TEMP 98
[2018-10-05 06:57] LABS: Glucose,Whole Blood 158 mg/dL (75-99)
[2018-10-05] MEDS: ATORVASTATIN 40 MG TAB PO SCH (08:02)
[2018-10-05] MEDS: ANASTROZOLE 1 MG TAB PO SCH (08:02)
[2018-10-05] MEDS: INSULIN ASPART (NovoLOG) 100 UNIT/ML VIAL SQ SCH ×4 (08:02→13:21)
[2018-10-05] MEDS: metFORMIN 500 MG TAB PO SCH (08:02)
[2018-10-05] MEDS: APIXABAN 5 MG TAB PO SCH (08:03)
[2018-10-05] MEDS: METOPROLOL TARTRATE 25 MG TAB PO SCH (08:03)
[2018-10-05] MEDS: FLUoxetine HCL 20 MG CAP PO SCH (08:03)
[2018-10-05] MEDS: FAMOTIDINE 20 MG TAB PO SCH (08:03)
[2018-10-05] MEDS: amLODIPine 10 MG TAB PO SCH (08:03)
[2018-10-05] MEDS: LISINOPRIL 10 MG TAB PO SCH (08:03)
[2018-10-05] MEDS: POTASSIUM CHLORIDE ER 20 MEQ TAB.ER PO SCH (08:03)
[2018-10-05] MEDS: FUROSEMIDE 40 MG TAB PO SCH (08:05)
[2018-10-05] MEDS: BUDESONIDE 1 MG/2 ML NEBU INHALATION SCH (08:30)
[2018-10-05 08:36] LABS: African American GFR (CKD) >90 (>60 ml/min/1.73 sqM); Anion Gap 10 mmol/L; Blood Urea Nitrogen 19 mg/dL (7-17); Calcium 10.4 mg/dL (8.4-10.2); Carbon Dioxide 27 mmol/L (22-30); Chloride 103 mmol/L (98-107); Glucose 148 mg/dL (74-99); Potassium 3.9 mmol/L (3.5-5.1); Sodium 140 mmol/L (137-145)
--- NOTE | 2018-10-05 09:11 | P.PN ---
Subjective Progress Note Date: 10/05/18 Principal diagnosis: Fall, weakness and altered mental status This is a very pleasant 68-year-old female patient who follows with Dr. Howell as her primary care physician. She has multiple medical problems including morbid obesity with obesity hypoventilation syndrome and obstructive sleep apnea not on BiPAP in the outpatient setting. She did have a unit that was taken back due to noncompliance. She was last seen in our office in January 2017. She also has history of coronary artery disease with stent placement to the RCA, diabetes mellitus, hyperlipidemia, hypertension, asthma, chronic lower extremity edema right breast cancer with lumpectomy, lymph nodes removed and radiation, on Arimidex. She presented here to the emergency room on 09/30/2018 after sustaining a fall at home. She did hit her head against the door. No loss of consciousness. CT scans of the brain showed no acute abnormality. Neurology is following. She had also been complaining of shortness of breath this admission where consulted for the same today. Chest x-ray reveals no acute pulmonary process. She is currently maintaining O2 saturations at 99% on 2 L/m per nasal cannula. She's been afebrile. White count 5.9. Hemoglobin 12.7. Creatinine 0.70. Echocardiogram revealed preserved left ventricular systolic function with ejection fraction 60-65%. No significant valvular abnormalities. No pulmonary hypertension. The patient is seen today 10/03/2018 in follow-up on the regular medical floor. She is more awake and alert today. Oriented to person and place. He denies any worsening shortness of breath, cough or congestion. No chills or night sweats. Maintaining O2 saturations in the 90s on 2 L/m per nasal cannula. She's been afebrile. Arterial blood gases on room air revealed a pO2 of 73, pCO2 of 42 and a pH is 7.40. Would not qualify for BiPAP based on this mild hypercapnia. Remains on bronchodilators. Anticoagulated with Eliquis. The patient is seen today 10/04/2018 in follow-up on the regular medical floor. She is resting comfortably in bed. No worsening shortness of breath, cough or congestion. Maintaining good O2 saturations in the upper 90s on 2 L/m per nasal cannula. Sodium 140. Potassium 4.2. Chloride 102. Bicarb 29. Creatinine 0.79. She is continued on DuoNeb inhalations, Pulmicort inhalations, Singulair. The patient is seen today 10/05/2018 in follow-up on the regular medical floor. She is awake and alert in no acute distress. She denies any worsening shortness of breath, cough or congestion. Currently maintaining good O2 saturations in the high 90s on 2 L/m per nasal cannula. She's afebrile. Hemodynamically stable. Objective - Vital Signs Vital signs: Vital Signs Temp 98 F 10/05/18 04:41 Pulse 88 10/05/18 08:30 Resp 20 10/05/18 04:41 BP 137/85 10/05/18 04:41 Pulse Ox 97 10/05/18 08:30 Intake & Output 10/04/18 10/05/18 10/05/18 18:59 06:59 18:59 Intake Total 660 Balance 660 Intake: Intake, IV Titration 420 Amount Sodium Chloride 0.9% 1, 420 000 ml @ 80 mls/hr IV . [id number] [facility] Rx#:[id number] Oral 240 Other: Voiding Method Incontinent Incontinent # Voids 4 2 # Bowel Movements 3 2 - Exam GENERAL EXAM: Morbidly obese 68-year-old female patient, alert in no acute distress. On 2 L. HEAD: Normocephalic. EYES: Normal reaction of pupils, equal size. NOSE: Clear with pink turbinates. THROAT: Crowding the posterior pharynx No erythema or exudates. NECK: Short. No masses, no JVD. CHEST: No chest wall deformity. LUNGS: Equal air entry lung sounds clear. Diminished. CVS: S1 and S2 normal with no audible murmur, regular rhythm. ABDOMEN: No hepatosplenomegaly, normal bowel sounds, no guarding or rigidity. SPINE: No scoliosis or deformity SKIN: No rashes CENTRAL NERVOUS SYSTEM: No focal deficits, tone is normal in all 4 extremities. EXTREMITIES: There is trace peripheral edema. No clubbing, no cyanosis. Peripheral pulses are intact. - Labs CBC & Chem 7: 10/02/18 07:40 10/05/18 07:30 Labs: Abnormal Lab Results - Last 24 Hours (Table) 10/04/18 10/04/18 10/04/18 Range/Units 07:39 11:11 17:10 BUN (7-17) mg/dL Glucose 154 H (74-99) mg/dL POC Glucose (mg/dL) 186 H 115 H (75-99) mg/dL Calcium 10.6 H (8.4-10.2) mg/dL 10/04/18 10/05/18 10/05/18 Range/Units 21:09 06:56 07:30 BUN 19 H (7-17) mg/dL Glucose 148 H (74-99) mg/dL POC Glucose (mg/dL) 142 H 158 H (75-99) mg/dL Calcium 10.4 H (8.4-10.2) mg/dL Assessment and Plan Assessment: Impression: #1 Fall, tripping fall without loss of consciousness, hitting her head with some altered mental status. Recovered. #2 Gait disturbance with frequent falls secondary to morbid obesity, suspected diabetic neuropathy, degenerative joint disease. #3 Dyspnea, multifactorial, secondary to mild exacerbation of intermittent asthma, morbid obesity, obstructive sleep apnea with obesity hypoventilation syndrome, previously had BiPAP in the outpatient setting that was removed due to noncompliance. #4 History of cardiac arrest status post coronary artery bypass grafting with prolonged ventilation requiring tracheostomy and PEG tube insertion with subsequent removals. #5 History of coronary artery disease with previous stent placement to the RCA. #6 Hypertension. #7 Hyperlipidemia. #8 Diabetes mellitus. #9 Previous pneumonias. #10 Previous tobacco dependence. #11 History of right-sided breast cancer status post lumpectomy/radiation. #12 Poor overall functional performance based on the above-mentioned multiple comorbidities. Plan: The patient was seen and evaluated by Dr. Waddell. She is stable from the pulmonary standpoint. Probable transfer [facility] today. I, the cosigning physician, performed a history & physical examination of the patient. Lungs sounds clear, diminished. Maintaining good O2 saturations in the 90s on 2 L/m per nasal cannula. I discussed the assessment and plan of care with my nurse practitioner, Etta Loyola. I attest to the above note as dictated by her.
[2018-10-05 11:34] LABS: Glucose,Whole Blood 142 mg/dL (75-99)
[2018-10-05 12:03] VITALS: RESP 18
[2018-10-05 12:11] VITALS: PULSE 80
--- NOTE | 2018-10-05 13:29 | P.DS ---
Providers Date of admission: 10/02/18 07:31 Expected date of discharge: 10/05/18 Attending physician: Neftaly Stovall Consults: 09/30/18 10:19 Consult Physician Routine Consulting Provider: Khai Ty Consult Reason/Comments: Confusion Do you want consulting provider notified?: Yes 10/02/18 00:20 Consult Physician Routine Consulting Provider: Ritchie Chua Consult Reason/Comments: Abnormal EKG Do you want consulting provider notified?: Yes 10/02/18 00:28 Consult Physician Routine Consulting Provider: Ana Mari Consult Reason/Comments: SOB Do you want consulting provider notified?: Yes 10/02/18 15:53 Consult Physician Routine Consulting Provider: Cassy Guy Consult Reason/Comments: Spondylolisthesis and bilateral foot drop Do you want consulting provider notified?: Yes Primary care physician: Pretty Howell [facility] Course: Hospital course: This is a 68-year-old patient who follows with Dr. Екатерина howell. Rather extensive medical history. Chronic stable medical conditions include coronary artery disease, asthma, diabetes, GERD, hyperlipidemia, obstructive sleep apnea, bilateral kidney stones, left adrenal nodule 2.4 cm, right axillary lesion. Patient normally uses a wheelchair to get about. Patient had a couple of falls at home. Yet again fell and presented to ER. Patient thinks she lost her balance. No focal weakness. No chest pain. No fever no chills. This could be from patient taking [place]. That was discontinued. Patient did had blood gases done. PCO2 was not too bad. Patient is felt to be having metabolic enceph alopathy from the same. Patient doing much better now. Pulse ox was 96% room air. Wheezing greatly improved. Also felt a COPD exacerbation. Lumbar spine showed MRI some L5-S1 spondylolisthesis. Seen by Dr. Guy. Not for any intervention at present time. Consultations: Dr. bee from pulmonary Dr. Davis from cardiology Dr. Ty from neurology Dr. Guy from orthopedic spine Physical examination: VITAL SIGNS: 98.1, 89, 20, 140 9792, 96% room air GENERAL: Sitting up on a chair, awake comfortable EYES: Pupils equal. Conjunctiva normal. HEENT: External appearance of nose and ears normal, oral cavity grossly normal. NECK: JVD not raised; masses not palpable. HEART: First and second heart sounds are normal; edema present LUNGS: Respiratory rate increased, decreased breath sounds. ABDOMEN: Soft, nontender, liver spleen not palpable, no masses palpable. PSYCH: Answering questions appropriately NEUROLOGICAL: Cranial nerves grossly; no facial asymmetry, power and sensation grossly intact. Investigations: Reviewed in the clinical context: Potassium 3.9 creatinine 0.75 Accu-Cheks noted ABG showed a pCO2 of 40 to and a pO2 of 73 initially on room air Chest x-ray film personally reviewed by me shows some cardiomegaly, no evidence of fluid overload Computed tomography scan of the brain, no acute Urine drug screen positive for opiates 2-D echo-shows EF of 60-65%, concentric left medical hypertrophy Vitamin B12 level normal, folate level normal, Discharge diagnosis: -acute metabolic encephalopathy could be from a pain medication she takes [place]. This was resulting in falls -That is no chronic hypoxic respiratory failure -Chronic medical debility does use a wheelchair and a walker for transfer -Diabetes mellitus type 2, chronically on insulin -Obesity BMI 34.3 -Acute COPD exacerbation in an ex-smoker -Coronary artery disease with prior history of coronary bypass -GERD -Hyperlipidemia -Essential hypertension -Obstructive sleep apnea uses CPAP machine in the past -Chronic bilateral lower extremity venous insufficiency -Chronic medical debility uses a wheelchair and a walker for transfer -Chronic left adrenal mass 2.5 cm: to followed as an outpatient -Bilateral foot drop -Peripheral neuropathy, secondary to diabetes mellitus type 2 Disposition: [facility] Patient Condition at Discharge: Stable Plan - Discharge Summary Discharge Rx Participant: No New Discharge Prescriptions: New Metoprolol Tartrate [Lopressor] 25 mg PO BID tab Naproxen 250 mg PO Q8H PRN #1 tablet PRN Reason: Pain Acetaminophen Tab [Tylenol Tab] 650 mg PO Q6H PRN #1 tablet PRN Reason: Pain Continue Budesonide [Pulmicort] 1 mg INHALATION RT-BID nebu Albuterol Sulfate [Proair Hfa] 1 - 2 puff INHALATION RT-Q6H PRN PRN Reason: Shortness Of Breath Alendronate Sodium 70 mg PO Q7D amLODIPine [Norvasc] 10 mg PO DAILY Anastrozole [Arimidex] 1 mg PO DAILY Apixaban [Eliquis] 5 mg PO DAILY Atorvastatin [Lipitor] 40 mg PO DAILY Famotidine [Pepcid] 20 mg PO BID FLUoxetine HCL [PROzac] 20 mg PO DAILY Furosemide [Lasix] 40 mg PO DAILY Lisinopril [Zestril] 10 mg PO DAILY metFORMIN HCL 1,000 mg PO BID Montelukast [Singulair] 10 mg PO HS Potassium Chloride ER [K-Dur 20] 20 meq PO DAILY Sennosides-Docusate Sodium [Senokot-S] 1 tab PO HS Changed Ipratropium-Albuterol Nebulize [Duoneb 0.5 mg-3 mg/3 ml Soln] 3 ml INHALATION QID #0 ampul.neb Insulin Glargine [Lantus] 15 unit SQ HS #0 Insulin Aspart [NovoLOG Flexpen] 3 units SQ AC-TID #0 Discontinued HYDROcodone/APAP 5-325MG [[place] 5-325] 1 tab PO BID PRN PRN Reason: Pain Metoprolol Tartrate [Lopressor] 50 mg PO DAILY Discharge Medication List Budesonide [Pulmicort] 1 mg INHALATION RT-BID nebu 06/18/17 [Rx] Albuterol Sulfate [Proair Hfa] 1 - 2 puff INHALATION RT-Q6H PRN 09/30/18 [History] Alendronate Sodium 70 mg PO Q7D 09/30/18 [History] Anastrozole [Arimidex] 1 mg PO DAILY 09/30/18 [History] Apixaban [Eliquis] 5 mg PO DAILY 09/30/18 [History] Atorvastatin [Lipitor] 40 mg PO DAILY 09/30/18 [History] FLUoxetine HCL [PROzac] 20 mg PO DAILY 09/30/18 [History] Famotidine [Pepcid] 20 mg PO BID 09/30/18 [History] Furosemide [Lasix] 40 mg PO DAILY 09/30/18 [History] Lisinopril [Zestril] 10 mg PO DAILY 09/30/18 [History] Montelukast [Singulair] 10 mg PO HS 09/30/18 [History] Potassium Chloride ER [K-Dur 20] 20 meq PO DAILY 09/30/18 [History] Sennosides-Docusate Sodium [Senokot-S] 1 tab PO HS 09/30/18 [History] amLODIPine [Norvasc] 10 mg PO DAILY 09/30/18 [History] metFORMIN HCL 1,000 mg PO BID 09/30/18 [History] Acetaminophen Tab [Tylenol Tab] 650 mg PO Q6H PRN #1 tablet 10/05/18 [Rx] Insulin Aspart [NovoLOG Flexpen] 3 units SQ AC-TID #0 10/05/18 [Rx] Insulin Glargine [Lantus] 15 unit SQ HS #0 10/05/18 [Rx] Ipratropium-Albuterol Nebulize [Duoneb 0.5 mg-3 mg/3 ml Soln] 3 ml INHALATION QID #0 ampul.neb 10/05/18 [Rx] Metoprolol Tartrate [Lopressor] 25 mg PO BID tab 10/05/18 [Rx] Naproxen 250 mg PO Q8H PRN #1 tablet 10/05/18 [Rx] Follow up Appointment(s)/Referral(s): Charlie Bee MD [STAFF PHYSICIAN] - 1 Week Rayray Vicente MD [STAFF PHYSICIAN] - 10/06/18 Pretty Howell MD [Primary Care Provider] - As Needed
== END 2018-10-05 14:15 | DRG 92 ==
LOC: EC 07:30 → 3NMEDONC 10:16 → OBSVTOIN 10-02 07:31
PROVIDERS: ADMIT Hospitalist; ATTEND Hospitalist
DX: G92 Toxic encephalopathy (principal); J44.1 Chronic obstructive pulmonary disease with (acute) exacerbation; J45.21 Mild intermittent asthma with (acute) exacerbation; T39.1X5A Adverse effect of 4-Aminophenol derivatives, initial encounter; E11.42 Type 2 diabetes mellitus with diabetic polyneuropathy; E78.5 Hyperlipidemia, unspecified; E86.0 Dehydration; G47.33 Obstructive sleep apnea (adult) (pediatric); I10 Essential (primary) hypertension; I25.10 Atherosclerotic heart disease of native coronary artery without angina pectoris; I48.91 Unspecified atrial fibrillation; K21.9 Gastro-esophageal reflux disease without esophagitis; M19.90 Unspecified osteoarthritis, unspecified site; M21.371 Foot drop, right foot; M21.372 Foot drop, left foot; M43.16 Spondylolisthesis, lumbar region; M43.17 Spondylolisthesis, lumbosacral region; R29.6 Repeated falls; Y92.009 Unspecified place in unspecified non-institutional (private) residence as the place of occurrence of the external cause; I25.2 Old myocardial infarction; Z68.34 Body mass index [BMI] 34.0-34.9, adult; Z79.01 Long term (current) use of anticoagulants; Z79.4 Long term (current) use of insulin; Z79.811 Long term (current) use of aromatase inhibitors; Z79.899 Other long term (current) drug therapy; Z80.3 Family history of malignant neoplasm of breast; Z82.49 Family history of ischemic heart disease and other diseases of the circulatory system; Z83.3 Family history of diabetes mellitus; Z85.3 Personal history of malignant neoplasm of breast; Z86.73 Personal history of transient ischemic attack (TIA), and cerebral infarction without residual deficits; Z87.442 Personal history of urinary calculi; Z87.891 Personal history of nicotine dependence; Z90.710 Acquired absence of both cervix and uterus; Z91.81 History of falling; Z91.19 Patient's noncompliance with other medical treatment and regimen; Z95.1 Presence of aortocoronary bypass graft; Z98.41 Cataract extraction status, right eye; Z95.5 Presence of coronary angioplasty implant and graft; Z98.42 Cataract extraction status, left eye
CPT/HCPCS: 36415; 36600; 70450; 71046; 72148; 80048; 80053; 80306; 81001; 82140; 82550; 82607; 82746; 82805; 83036; 83735; 84443; 84484; 85025; 85610; 85730; 93005; 93306; 94640; 94760; 94762; 96360; 96361; 99285

== ENCOUNTER → 2019-04-05 | Outpatient (CLI) | payer MEDICARE, BC, OTHER ==
[2019-04-05 19:32] LABS: HCT 38.5 % (34.0-46.0); HGB 11.8 gm/dL (11.4-16.0); Hypochromasia Slight; MCH 29.5 pg (25.0-35.0); MCHC 30.6 g/dL (31.0-37.0); MCV 96.3 fL (80.0-100.0); Mean Platelet Volume 9.7; Platelet Count 214 k/uL (150-450); RDW 13.3 % (11.5-15.5); WBC 7.8 k/uL (3.8-10.6)
[2019-04-07 11:19] LABS: Albumin 4.2 g/dL (3.80-4.90); Albumin/Globulin Ratio 1.83 (1.60-3.17); Anion Gap 11.1 mmol/L (4.00-12.00); Calcium 10.1 mg/dL (8.7-10.3); Carbon Dioxide 24.9 mmol/L (21.6-31.8); Globulin 2.3 g/dL (1.6-3.3); Non-African American GFR(CKD) 57.8 (60.0-200.0); Phosphorus 3.5 mg/dL (2.4-5.1); Potassium 4.2 mmol/L (3.5-5.5); Total Bilirubin 0.3 mg/dL (0.2-1.2); Total Protein 6.5 g/dL (6.2-8.2)
== END | disposition home or self-care (01) ==
LOC: LABMEDISNF 18:45 → EDSTATUS 18:48
PROVIDERS: ATTEND Family Medicine
DX: E27.8 Other specified disorders of adrenal gland (principal)
CPT/HCPCS: 36415; 80053; 84100; 85027

== ENCOUNTER → 2019-04-16 | Outpatient (CLI) | payer MEDICARE, BC, OTHER ==
--- NOTE | 2019-04-16 15:35 | US ---
EXAMINATION TYPE: US kidneys/renal and bladder DATE OF EXAM: 04/16/2019 COMPARISON: CT earlier today CLINICAL HISTORY: E27.9 LT ADRENAL MASS. Patient states no other symptoms EXAM MEASUREMENTS: Right Kidney: 11.7 x 4.7 x 4.6 cm Left Kidney: 11.6 x 5.3 x 4.9 cm Difficult and limited study due to patient body habitus and exam done with patient sitting in wheel chair. Right Kidney: no hydronephrosis or masses seen Left Kidney: 1.3 x 1.2 x 1.4cm exophytic hypoechoic area lateral superior pole Bladder: not imaged due to above limitations When scanning the right kidney adjacent liver is heterogeneously hyperechoic consistent with diffuse fatty infiltration. Renal size is symmetric and within normal limits. Cortical medullary differentiat ion maintained. No concerning solid or cystic renal masses identified bilaterally. Technologist ident ifies 1.2 cm exophytic simple appearing thin-walled cyst posteriorly upper pole left kidney correlati ng with CT. No hydronephrosis bilaterally. Bladder not imaged due to above limitations. IMPRESSION: Suboptimal study without hydronephrosis seen bilaterally. Nodular thickening through both adrenal glands on CT suprarenal level is not as well identified on ultrasound.
--- NOTE | 2019-04-16 15:54 | CT ---
EXAMINATION TYPE: CT abdomen w con DATE OF EXAM: 04/16/2019 HISTORY: Left adrenal mass. CT DLP: 1570mGycm Automated Exposure Control for Dose Reduction was Utilized. CONTRAST: CT scan of the abdomen is performed with oral and with IV Contrast, patient injected with 100 mL of I sovue M300. Exam was ordered under adrenal protocol but not proper adrenal protocol order given by or dering physician as did not order without and with IV contrast. Technologist just perform study with IV contrast as ordered making evaluation suboptimal. 1 minute and 15 minute postcontrast imaging is p erformed COMPARISON: None. FINDINGS: LUNG BASES: Partial visualization of overlying sternal wires presumed from CABG. Significant [place] c oronary artery calcification. Mild cardiomegaly. Some areas of peripheral fibrosis and reticulation b ilaterally. Slightly elevated anterior right hemidiaphragm. Subpleural 5 mm right lower lobe nodule a xial image 11. Left greater than right patchy bibasilar linear scarring and/or atelectasis. LIVER/GB: Small dependent calcified gallstones in gallbladder. Liver is diffusely low dense consisten t with fatty infiltration. PANCREAS: No significant abnormality is seen. SPLEEN: Spleen upper limits of normal in size and coronal image 70 series 5. ADRENALS: Slight nodular thickening to the right adrenal gland posterior limb measuring 2.1 x 1.2 cm on image 47 series 3. Hounsfield units average near 36 on the right on 1 minute postcontrast images a nd washout to 4 Hounsfield units on 15 minute delayed phased images. There is slightly more prominent nodular thickening to the posterior limb left adrenal gland measurin g 2.5 x 1.9 cm series 3 image 51. Hounsfield units average near 19 on the left on [address] images and washout to near 1 unit on 15 minute delayed images. KIDNEYS: There is 1.2 cm exophytic simple appearing thin-walled cyst posteriorly upper pole left kidn ey axial image 35 series 7. BOWEL: Round metallic densities at the base of cecum cause streak artifact, possible ingested foreign body measuring up to 1.1 cm in size axial image 57. Normal appearing appendix is seen inferior to th is axial image 60 series 7. No suspicious small or large bowel dilatation. LYMPH NODES: No greater than 1cm abdominal lymph nodes are appreciated. OSSEOUS STRUCTURES: Bilateral pars defect with grade 1 borderline grade 2 anterolisthesis L5 on S1 wi th moderate disc space narrowing and vacuum disc phenomenon. OTHER: Moderate calcified plaque of the aorta extends into branch vessels. IMPRESSION: 1. Left greater than right nonspecific adrenal nodularity favoring benign etiology but cannot be conf irmed without noncontrast imaging. 2. There is 5 mm subpleural nodule right lower lobe. This likely is stable from chest CT May 29 8 image 29 and can be presumed benign. 3. Possible ingested metallic foreign body at base of cecum, correlate clinically.
== END | disposition home or self-care (01) ==
LOC: RADCTMAIN 13:04
PROVIDERS: ATTEND Internal Medicine
DX: E27.8 Other specified disorders of adrenal gland (principal); R22.9 Localized swelling, mass and lump, unspecified
CPT/HCPCS: 76770; 74160; Q9967 ×2